=== PATIENT | female | born 1930 | race Asian ===

== ENCOUNTER 2017-01-29 01:37 | Inpatient (IN) | payer OTHER ==
[~2017-01-29] VITALS: Ht 152.4 cm; Wt 80.7 kg
[2017-01-29] VITALS (11 sets, daily range): BP systolic 117–158; BP diastolic 58–87; PULSE 94–120; RESP 18–20; TEMP 99; Ht 152.4 cm; Wt 80.7 kg
[2017-01-29] MEDS ORDERED: ACETAMINOPHEN 650 MG SUPP PR STA (01:42)
[2017-01-29 02:28] LABS: ADD SCAN DIFF NO
[2017-01-29 02:32] LABS: ABNORMAL IP MESSAGE 1; BASOPHILS % 0.3 % (0.0-2.0); EOSINOPHILS # 0.3 10^3/ul (0.0-0.5); EOSINOPHILS % 2.1 % (0.0-7.0); HEMATOCRIT 28.2 % (37.0-47.0); HEMOGLOBIN 9.3 g/dl (12.0-16.0); LYMPHOCYTES # 2.2 10^3/ul (0.8-2.9); LYMPHOCYTES % 13.9 % (15.0-51.0); MEAN CORPUSCULAR HEMOGLOBIN 30.4 pg (29.0-33.0); MEAN CORPUSCULAR VOLUME 92.2 fl (82.0-101.0); MEAN PLATELET VOLUME 9.1 fl (7.4-10.4); MONOCYTE # 1.6 10^3/ul (0.3-0.9); MONOCYTES % 10.5 % (0.0-11.0); NEUTROPHIL # 11.3 10^3/ul (1.6-7.5); NEUTROPHILS % 72.8 % (39.0-77.0); PLATELET COUNT 292 10^3/UL (140-415); RED BLOOD COUNT 3.06 10^6/ul (4.20-5.40); RED CELL DISTRIBUTION WIDTH 14.9 % (11.5-14.5); WHITE BLOOD COUNT 15.5 10^3/ul (4.8-10.8)
[2017-01-29 02:37] LABS: URINE BLOOD (Dip) POC Trace-lysed (NEGATIVE)
[2017-01-29 02:42] LABS: INR 1.07; PROTIME 13.9 Sec (12.2-14.2); PT RATIO 1.1
[2017-01-29 02:43] LABS: PARTIAL THROMBOPLASTIN TIME 34.4 Sec (25.0-35.0)
--- NOTE | 2017-01-29 02:46 | RADRPT ---
PROCEDURE: Chest. CLINICAL INDICATION: Chest pain. TECHNIQUE: Single frontal view of the chest was obtained. COMPARISON: None. FINDINGS: The cardiac silhouette is enlarged. The aortic arch is calcified. There are increased interstitial markings bilaterally. There is no focal consolidation or pleural effusion. There is no pneumothor ax. IMPRESSION: Bilateral increased interstitial markings could represent interstitial edema or chronic lung changes . Moderate cardiomegaly and aortic atherosclerosis. .Dhruv Mills MD, MD Date Time Electronically viewed and signed by .Dhruv Mills MD, on 01/29/2017 02:45 .T/
--- NOTE | 2017-01-29 02:47 | ERA ---
ER Documentation Chief Complaint Date/Time DATE: 01/29/17 TIME: 02:45 Chief Complaint sent from [facility] for fever 100.9, DNR on chart HPI This is an 86-year-old female sent from his returns for fever 100.9. Denies any complaints. Patient denies any complaints ROS All systems reviewed and are negative except as per history of present illness. Physical Exam Vitals Vital Signs Date Time Temp Pulse Resp B/P Pulse Ox O2 Delivery O2 Flow Rate FiO2 01/29/17 02:04 99.4 130 20 158/103 96 Physical Exam Const: [] Head: Atraumatic Eyes: Normal Conjunctiva ENT: Normal External Ears, Nose and Mouth. Neck: Full range of motion..~ No meningismus. Resp: Clear to auscultation bilaterally Cardio: Regular rate and rhythm, no murmurs Abd: Soft, non tender, non distended. Normal bowel sounds Skin: No petechiae or rashes Back: No midline or flank tenderness Ext: No cyanosis, or edema Neur: Awake and alert Psych: Normal Mood and Affect Result Diagram: 01/29/17 0210 Results 24 hrs Laboratory Tests Test 01/29/17 02:10 01/29/17 02:39 Activated Partial Thromboplast Time 34.4Sec Basophils # 0.010^3/ul Basophils % 0.3% Eosinophils # 0.310^3/ul Eosinophils % 2.1% Hematocrit 28.2% Hemoglobin 9.3g/dl INR International Normalized Ratio 1.07 Lymphocytes # 2.210^3/ul Lymphocytes % 13.9% Mean Corpuscular Hemoglobin 30.4pg Mean Corpuscular Hemoglobin Concent 33.0g/dl Mean Corpuscular Volume 92.2fl Mean Platelet Volume 9.1fl Monocytes # 1.610^3/ul Monocytes % 10.5% Neutrophils # 11.310^3/ul Neutrophils % 72.8% Nucleated Red Blood Cells # 0.010^3/ul Nucleated Red Blood Cells % 0.0/100WBC Platelet Count 26340^3/UL Prothrombin Time 13.9Sec Prothrombin Time Ratio 1.1 Red Blood Count 3.0610^6/ul Red Cell Distribution Width 14.9% White Blood Count 15.510^3/ul Bedside Urine Blood Trace-lysed Bedside Urine Glucose (UA) Negative Bedside Urine Ketones (LAB) Negative Bedside Urine Leukocyte Esterase (L Negative Bedside Urine Nitrite (LAB) Negative Bedside Urine Protein (LAB) 2+ Bedside Urine pH (LAB) 5.5 Current Medications Medications (Trade) Dose Ordered Sig/Chuck Route PRN Reason Start Time Stop Time Status Last Admin Dose Admin Acetaminophen (Tylenol Supp) 650 mg ONCE STAT RI 01/29/17 01:42 01/29/17 01:43 DC Procedures/MDM EKG: Rate/Rhythm: Normal Sinus Rhythm QRS, ST, T-waves: No changes consistent w/ acute ischemia Impression: No evidence of ischemia or arrhythmia Chest X-ray 1V Interpreted by me: Soft Tissue: No acute abnormalities Bones: No acute abnormalities Mediastinum/Cardiac Silhouette/Lungs: No acute abnormalities Medical decision-making: Patient has evidence of UTI and a white count. No evidence of sepsis. Patient will be admitted to Dr. Mansfield. Broad-spectrum antibiotics started. Departure Diagnosis: Primary Impression: Fever Qualified Code: R50.9 - Fever, unspecified fever cause Additional Impression: UTI (urinary tract infection) Qualified Code: N39.0 - Urinary tract infection without hematuria, site unspecified Condition: Stable KAMERON SHANKS Jan 29, 2017 02:46
[2017-01-29 02:50] LABS: ALBUMIN 3.8 g/dl (3.3-4.9)
[2017-01-29 02:52] LABS: BILIRUBIN,INDIRECT 0.3 mg/dl (0-1.1); BILIRUBIN,TOTAL 0.3 mg/dl (0.2-1.3); CREATININE 2.86 mg/dl (0.44-1.00)
[2017-01-29 02:53] LABS: ALBUMIN/GLOBULIN RATIO 1.05; TOTAL PROTEIN 7.4 g/dl (6.1-8.1)
[2017-01-29 02:54] LABS: CALCIUM 9.3 mg/dl (8.4-10.2)
[2017-01-29 02:59] LABS: ADD UMIC YES; URINE BILIRUBIN (Dip) NEGATIVE (NEGATIVE); URINE BLOOD (Dip) TRACE (NEGATIVE); URINE COLOR LT. YELLOW (YELLOW); URINE GLUCOSE (Dip) NEGATIVE (NEGATIVE); URINE KETONES (Dip) NEGATIVE (NEGATIVE); URINE LEUKOCYTE ESTERASE (Dip) NEGATIVE (NEGATIVE); URINE NITRITE (Dip) NEGATIVE (NEGATIVE); URINE TOTAL PROTEIN (Dip) 1+ (NEGATIVE); URINE UROBILINOGEN (Dip) 0.2 E.U./dL (0.1-1.0)
[2017-01-29] MEDS ORDERED: ACETAMINOPHEN 325 MG TAB PO ONE (03:00)
[2017-01-29] MEDS ORDERED: OXYCODONE/ACETAMINOPHEN (5/325) TAB PO ONE (03:00)
[2017-01-29 03:08] LABS: TROPONIN-I 0.035 ng/ml (0.00-0.12)
[2017-01-29 03:12] LABS: SQUAMOUS EPITHELIAL CELL,UR FEW
[2017-01-29] MEDS ORDERED: UDROBDM PO (04:46)
[2017-01-29] MEDS ORDERED: OXYC-209 PO (04:46)
[2017-01-29] MEDS ORDERED: ALLO100T PO (04:46)
[2017-01-29] MEDS ORDERED: DOCU-159 PO (04:46)
[2017-01-29] MEDS ORDERED: AMLO2.5T78 PO (04:46)
[2017-01-29] MEDS ORDERED: CYAN500T46 PO (04:46)
[2017-01-29] MEDS ORDERED: HYDR-3011 PO (04:46)
[2017-01-29] MEDS ORDERED: TRAZ50TA18 PO (04:46)
[2017-01-29] MEDS ORDERED: FER325 PO (04:46)
[2017-01-29] MEDS ORDERED: LEVA0.634 INHALATION (04:46)
[2017-01-29] MEDS ORDERED: ACET-2047 PO (04:46)
[2017-01-29] MEDS ORDERED: ASC500 PO (04:46)
[2017-01-29] MEDS ORDERED: OMEG1CAP9 PO (04:46)
[2017-01-29] MEDS ORDERED: LOVA20TA PO (04:46)
[2017-01-29] MEDS ORDERED: PANT40SU PO (04:46)
[2017-01-29] MEDS ORDERED: ACETAMINOPHEN 325 MG TAB PO PRN (05:30)
[2017-01-29 06:54] LABS: ADD SCAN DIFF NO
[2017-01-29 07:05] LABS: BASOPHILS % 0.3 % (0.0-2.0); EOSINOPHILS # 0.6 10^3/ul (0.0-0.5); EOSINOPHILS % 4.9 % (0.0-7.0); HEMOGLOBIN 8.3 g/dl (12.0-16.0); LYMPHOCYTES # 1.9 10^3/ul (0.8-2.9); MEAN CORPUSCULAR HEMOGLOBIN 31.1 pg (29.0-33.0); MEAN CORPUSCULAR HGB CONC 33.2 g/dl (32.0-37.0); MEAN CORPUSCULAR VOLUME 93.6 fl (82.0-101.0); MEAN PLATELET VOLUME 9.3 fl (7.4-10.4); MONOCYTE # 1.4 10^3/ul (0.3-0.9); MONOCYTES % 11.3 % (0.0-11.0); NEUTROPHIL # 8.7 10^3/ul (1.6-7.5); PLATELET COUNT 268 10^3/UL (140-415); RED BLOOD COUNT 2.67 10^6/ul (4.20-5.40); RED CELL DISTRIBUTION WIDTH 14.9 % (11.5-14.5); WHITE BLOOD COUNT 12.8 10^3/ul (4.8-10.8)
[2017-01-29 07:12] LABS: ALBUMIN 3.1 g/dl (3.3-4.9)
[2017-01-29 07:13] LABS: POTASSIUM 4.2 mmol/L (3.5-5.1)
[2017-01-29 07:15] LABS: ALBUMIN/GLOBULIN RATIO 1.06; BILIRUBIN,INDIRECT 0.2 mg/dl (0-1.1); BILIRUBIN,TOTAL 0.2 mg/dl (0.2-1.3); CREATININE 2.65 mg/dl (0.44-1.00)
[2017-01-29 07:16] LABS: CALCIUM 8.9 mg/dl (8.4-10.2); CHOL/HDL RATIO 2.7 RATIO
[2017-01-29 07:46] LABS: THYROID STIMULATING HORMONE 3.22 MIU/L (0.465-4.680)
[2017-01-29] MEDS ORDERED: ENOXAPARIN 100 MG/ML SYG SC SCH (09:00)
[2017-01-29] MEDS: METOPROLOL 25 MG TAB PO SCH ×2 (09:05→20:43)
[2017-01-29] MEDS: CEFTRIAXONE 1 GM/50 ML (PMX) 50 ML IVPB SCH (09:06)
[2017-01-29] MEDS: GUAIFENESIN/CODEINE 5ML CUP PO PRN ×2 (13:58→18:54)
--- NOTE | 2017-01-29 15:51 | RADRPT ---
Echocardiogram Report Patient Name: MARYCRUZ GARCIA Gender: Female Date: 1930 Study Date: 29-Jan-2017 Professor/Nurse Anesthetist: Shruthi Andre RDCS Location: 522 Ref. Physician: LOREN ROSE Quality: Adequate Procedures: Transthoracic echocardiogram with complete 2D, M-Mode, and doppler examination. Indications: Atrial Fibrillation. 2D/M Mode Doppler Measurement Value Normal Ranges Measurement Value Normal Ranges LVIDd 2D 4.3 3.5 - 5.6 cm TAD Vmax 1.1 cm2 LVIDs 2D 2.2 2.1 - 4.1 cm TAD VTI 1.1 cm2 LVPWd 2D 1.0 0.6 - 1.1 cm AV Mean [place] 1.6 m/sec IVSd 2D 0.7 0.6 - 1.1 cm AV Mean PG 11.9 mmHg AoR Diam 2D 2.6 2.0 - 3.7 cm AV Peak [place] 2.3 m/sec EDV 2D 83.8 cm3 AV Peak PG 21.5 mmHg ESV 2D 10.0 cm3 AV VTI 40.1 cm LA Dimen 2D 3.8 2.3 - 4.0 cm LVOT Mean [place] 0.7 m/sec LVOT Mean PG 2.6 mmHg LVOT Peak [place] 1.0 m/sec LVOT Peak PG 4.0 mmHg LVOT VTI 21.5 cm TR Peak [place] 2.4 m/sec TR Peak PG 22.3 mmHg RVSP 25.0 mmHg Findings Left Ventricle: Normal left ventricular systolic function. Normal left ventricular cavity size. Normal left ventricular wall thickness. Ejection fraction is visually estimated at 60 %. Tissue Doppler/Mitral Doppler indices are indeterminate in this study due to the presence of atrial fibrillation. Right Ventricle: Normal right ventricular size. Normal right ventricular systolic function. Left Atrium: The left atrium is normal in size. Right Atrium: The right atrium is normal in size. Mitral Valve: Mild mitral leaflet calcification. Moderate mitral annular calcification. Mild mitral valve regurgitation. Aortic Valve: Mild aortic stenosis. Aortic valve Max velocity 2.32 m/sec. Max PG 21.50 mmHg. Mean PG 11.90 mmHg. Aortic cusps appear mildly calcified. Trace aortic valve regurgitation. Tricuspid Valve: Normal appearance of the tricuspid valve. Estimated peak PA systolic pressure 25 mmHg. There is mild tricuspid regurgitation. Pulmonic Valve: Pulmonic valve not well visualized. Pericardium: Normal pericardium with no significant pericardial effusion. Aorta: Normal aortic root. IVC: Normal size and normal respiratory collapse consistent with normal right atrial pressure. Conclusions Normal left ventricular systolic function. Normal left ventricular cavity size. Normal left ventricular wall thickness. Ejection fraction is visually estimated at 60 %. Tissue Doppler/Mitral Doppler indices are indeterminate in this study due to the presence of atrial fibrillation. Mild mitral valve regurgitation. Mild aortic stenosis by gradient. Trace aortic valve regurgitation. Estimated peak PA systolic pressure 25 mmHg. There is mild tricuspid regurgitation. Electronically Signed By: Tera Iraheta 29-Jan-2017 15:50:58 -0800 Patient Name: MARYCRUZ GARCIA Study Date: 29-Jan-2017 [id number]
[2017-01-29] MEDS ORDERED: METHYLPREDNISOLONE 40 MG INJ IV SCH (16:00)
--- NOTE | 2017-01-29 16:09 | HP ---
DATE OF ADMISSION: 01/29/2017 CHIEF COMPLAINT: Fever and shortness of breath. HISTORY OF PRESENT ILLNESS: The patient is an 86-year-old female with a past medical history posit betsy for hypertension, hyperlipidemia, gout, iron deficiency anemia and possible COPD. PAST SURGICAL HISTORY: The patient had bilateral ankle surgery more than a year ago and was recuper ating at [facility]. The patient complained of shortness of breath, cough and was started on Augmentin, however, with no improvement in cough and shortness of breath. Patient also spiked fever and was sent to [facility] emergency room. In the emergency room, patient underwent a chest x-ray which rev ealed bilateral increased interstitial markings which could represent interstitial edema or chronic lung changes, moderate cardiomegaly and aortic atherosclerosis. ASSESSMENT AND PLAN: Patient's troponin was negative on admission. The patient noted to have leuko cytosis with white blood cells elevated to 15.5. The patient also complains of dysuria. The patien t also ____of elevated BUN and creatinine. The patient was started on Rocephin and given cough syru p and admitted for further evaluation and management to medical/surgical floor. PAST MEDICAL HISTORY: Per HPI. PAST SURGICAL HISTORY: Status post ankle surgeries, details not available. SOCIAL HISTORY: Patient is retired. The patient denies any tobacco use; however, stated that she w as exposed to secondhand smoke. Her was a heavy smoker. The patient denies any alcohol use , denies any illicit drug use. ALLERGIES: NO KNOWN ALLERGIES. MEDICATIONS ON ADMISSION: 1. Tylenol. 2. Allopurinol. 3. Amlodipine. 4. Vitamin C. 5. Vitamin B12. 6. Colace. 7. Ferrous sulfate. 8. Robitussin. 9. Hydroxyzine. 10. Levalbuterol. 11. Percocet. 12. Trazodone. 13. Lovastatin. 14. [place] 3 fatty acid. 15. Protonix. ASSESSMENT AND PLAN: 1. Possible bronchitis versus early pneumonia. Continue patient on Rocephin. Start patient on linda athing treatments. 2. Possible urinary tract infection. Continue antibiotics. Will obtain urine and blood cultures. 3. Hypertension. Continue metoprolol. 4. Possible chronic obstructive pulmonary disease exacerbation. Continue patient on breathing gen tments, start the patient on steroids. Continue supplemental oxygen. 5. We will obtain a 2D echo and evaluation of patient's ejection fraction. 6. Gout. Continue allopurinol. 7. Hyperlipidemia. Continue statin. Will continue Lovenox for deep venous thrombosis prophylaxis and Protonix for peptic ulcer disease prophylaxis. Further recommendations based on clinical course . Plan of care discussed with Dr. Olivier. Dictated By: EDWAR VARGAS CONDUCTOR AND ENGINEER for LOREN OLIVIER MD SR/NTS Conf#: [id number] DID#: [id number]
[2017-01-29] MEDS: PANTOPRAZOLE (EC) 40 MG TAB PO SCH (16:48)
[2017-01-29] MEDS ORDERED: EPOETIN 10000 UNITS/1 ML INJ (ESRD) SC SCH (17:00)
[2017-01-29] MEDS ORDERED: HEPARIN 5,000 UNIT/0.5 ML SYG SC SCH (17:00)
[2017-01-29] MEDS: METHYLPREDNISOLONE 40 MG INJ IV SCH (17:09)
--- NOTE | 2017-01-29 17:41 | RADRPT ---
PROCEDURE: Renal US. CLINICAL INDICATION: Acute kidney injury. TECHNIQUE: Multiple sonographic images of the kidneys and urinary bladder were obtained. The imag es were reviewed on a PACS workstation. COMPARISON: No prior studies are available for comparison. FINDINGS: The right kidney measures 10.6 x 4.5 x 4.0 cm. The left kidney measures 9.3 x 4.8 x 3.3 cm. There is no solid renal mass. There are benign bilateral renal cysts with the largest on the right measuring 3.0 cm and the largest on the left measuring 1.9 cm in maximal dimension. There is no hydronephrosis. There is no renal calculus. Both kidneys are hyperechoic consistent with medical renal disease. There is mild thinning of the r enal parenchyma bilaterally. The perirenal regions are normal with no fluid collection or mass. The urinary bladder is unremarkable. IMPRESSION: 1. Benign bilateral renal cysts. 2. Bilateral hyperechoic kidneys with thinning of the renal parenchyma consistent with medical galindo l disease. 3. No hydronephrosis. 4. Otherwise normal renal ultrasound. RPTAT: QQ .Raghav Aguirre MD, MD Date Time Electronically viewed and signed by .Raghav Aguirre MD, on 01/29/2017 17:41 .R/
[2017-01-29 18:50] LABS: CK-MB 1.61 ng/ml (0.0-2.4)
[2017-01-29 18:53] LABS: TROPONIN-I 0.026 ng/ml (0.00-0.12)
--- NOTE | 2017-01-29 19:31 | CONS ---
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 Thank for you the opportunity to participate in the care of Ms Simon. Consultation Date/Type/Reason Admit Date/Time Jan 29, 2017 at 03:02 Type of Consultation: Nephrology Reason for Consultation CKD Referring Provider: LOREN ROSE MD Hx of Present Illness 86-year-old female with a history of hypertension, hyperlipidemia, gout, Chronic kidney disease, iron deficiency anemia presenting from [facility] with worsening shortness of breath, cough and fever in the emergency department at [facility]. Nephrology consulted for abnormal renal function. Constitutional: requiring O2 Past Medical History MEDICATIONS ON ADMISSION: 1. Tylenol. 2. Allopurinol. 3. Amlodipine. 4. Vitamin C. 5. Vitamin B12. 6. Colace. 7. Ferrous sulfate. 8. Robitussin. 9. Hydroxyzine. 10. Levalbuterol. 11. Percocet. 12. Trazodone. 13. Lovastatin. 14. [place] 3 fatty acid. 15. Protonix. Medical History: hypertension, renal disease Past Surgical History Past Surgical Hx: other Family History Significant Family History: no pertinent family hx Social History Alcohol Use: none Smoking Status: Never smoker Drug Use: none Exam/Review of Systems Vital Signs Vitals Vital Signs Date Time Temp Pulse Resp B/P Pulse Ox O2 Delivery O2 Flow Rate FiO2 01/29/17 16:55 94 01/29/17 15:17 98.6 18 136/78 99 01/29/17 03:45 Nasal Cannula 01/29/17 02:59 1 Exam Constitutional: alert, No distress Psych: anxiety Head: atraumatic Eyes: EOMI Neck: No jvd Respiratory: crackles/rales, diminished breath sounds, wheezing, No labored breathing Cardiovascular: edema, regular rate and rhythm Gastrointestinal: non-tender, soft Extremities: edema 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: NURSE OB II-XII intact Skin: No diaphoresis Results Result Diagram: 01/29/1762501/29/17 06 Results 24 hrs Laboratory Tests Test 01/29/17 02:10 01/29/17 02:28 01/29/17 02:39 01/29/17 06:26 Activated Partial Thromboplast Time 34.4 Alanine Aminotransferase (ALT/SGPT) 56 50 Albumin 3.8 3.1 L Albumin/Globulin Ratio 1.05 1.06 Alkaline Phosphatase 136 H 111 Anion Gap 20 H 17 H Aspartate Amino Transf (AST/SGOT) 53 H 44 Basophils # 0.0 0.0 Basophils % 0.3 0.3 Blood Urea Nitrogen 36 H 37 H Calcium Level 9.3 8.9 Carbon Dioxide Level 19 L 21 Chloride Level 104 104 Creatinine 2.86 H 2.65 H Direct Bilirubin 0.00 0.00 Eosinophils # 0.3 0.6 H Eosinophils % 2.1 4.9 Globulin 3.60 H 2.90 Glucose Level 120 109 Hematocrit 28.2 L 25.0 L Hemoglobin 9.3 L 8.3 L INR International Normalized Ratio 1.07 Indirect Bilirubin 0.3 0.2 Lactic Acid Level 0.8 0.8 Lymphocytes # 2.2 1.9 Lymphocytes % 13.9 L 15.0 Mean Corpuscular Hemoglobin 30.4 31.1 Mean Corpuscular Hemoglobin Concent 33.0 33.2 Mean Corpuscular Volume 92.2 93.6 Mean Platelet Volume 9.1 9.3 Monocytes # 1.6 H 1.4 H Monocytes % 10.5 11.3 H Neutrophils # 11.3 H 8.7 H Neutrophils % 72.8 68.0 Nucleated Red Blood Cells # 0.0 0.0 Nucleated Red Blood Cells % 0.0 0.0 Platelet Count 292 268 Potassium Level 4.0 4.2 Prothrombin Time 13.9 Prothrombin Time Ratio 1.1 Red Blood Count 3.06 L 2.67 L Red Cell Distribution Width 14.9 H 14.9 H Sodium Level 139 138 Total Bilirubin 0.3 0.2 Total Protein 7.4 6.0 #L Troponin I 0.035 White Blood Count 15.5 H 12.8 H Urine Amorphous Urates MODERATE Urine Bilirubin NEGATIVE Urine Clarity CLEAR Urine Color LT. YELLOW Urine Glucose NEGATIVE Urine Hemoglobin TRACE Urine Ketones NEGATIVE Urine Leukocyte Esterase NEGATIVE Urine Microscopic RBC 2-5 Urine Microscopic WBC 0-2 Urine Nitrite NEGATIVE Urine Specific [place] <=1.005 L Urine Squamous Epithelial Cells FEW Urine Total Protein 1+ H Urine Urobilinogen 0.2 E.U./dL Urine pH 5.5 Bedside Urine Blood Trace-lysed H Bedside Urine Glucose (UA) Negative Bedside Urine Ketones (LAB) Negative Bedside Urine Leukocyte Esterase (L Negative Bedside Urine Nitrite (LAB) Negative Bedside Urine Protein (LAB) 2+ H Bedside Urine pH (LAB) 5.5 Cholesterol Level 135 Cholesterol/HDL Ratio 2.7 HDL Cholesterol 50 LDL Cholesterol, Calculated 68 Thyroid Stimulating Hormone (TSH) 3.220 Triglycerides Level 83 Test 01/29/17 09:28 01/29/17 18:10 Lactic Acid Level 0.8 Creatine Kinase 117 Creatine Kinase Index 1.4 Creatinine Kinase MB (Mass) 1.61 Troponin I 0.026 Medications Medications Current Medications Ceftriaxone Sodium (Rocephin) 50 ml @ 100 mls/hr Q24H IVPB Last administered on 01/29/17 09:06; Admin Dose 100 MLS/HR; Start 01/29/17 at 05:30 Acetaminophen (Tylenol Tab) 650 mg Q4H PRN PO PAIN AND OR ELEVATED TEMP Last administered on 01/29/17 18:54; Admin Dose 650 MG; Start 01/29/17 at 05:30 Metoprolol Tartrate (Lopressor) 25 mg BID PO Last administered on 01/29/17 09: 05; Admin Dose 25 MG; Start 01/29/17 at 09:00 Guaifenesin/ Codeine Phosphate (Robitussin Ac Liquid Cup) 10 ml Q4H PRN PO COUGH Last administered on 01/29/17 18:54; Admin Dose 10 ML; Start 01/29/17 at 05 :30 Atorvastatin Calcium (Lipitor) 10 mg HS PO ; Start 01/29/17 at 21:00 Pantoprazole (Protonix Tab) 40 mg DAILY@06 PO Last administered on 01/29/17 16: 48; Admin Dose 40 MG; Start 01/29/17 at 16:00 Heparin Sodium (Porcine) (Heparin (5000 Units/0.5 ml)) 5,000 unit Q12 SC Last administered on 01/29/17 16:50; Admin Dose 5,000 UNIT; Start 01/29/17 at 17:00 Methylprednisolone Sodium Succinate (Solu-Medrol) 40 mg Q12 IV Last administered on 01/29/17t 17:09; Admin Dose 40 MG; Start 01/29/17 at 17:00 Epoetin Larry (Epogen (Non Esrd/Non Oncology)) 3,000 units MoWeFr@17 SC ; Start 01/31/17 at 17:00 Epoetin Larry (Epogen (Non Esrd/Non Oncology)) 2,000 units MoWeFr@17 SC ; Start 01/31/17 at 17:00 Procedures Procedures PROCEDURE: Chest. CLINICAL INDICATION: Chest pain. TECHNIQUE: Single frontal view of the chest was obtained. COMPARISON: None. FINDINGS: The cardiac silhouette is enlarged. The aortic arch is calcified. There are increased interstitial markings bilaterally. There is no focal consolidation or pleural effusion. There is no pneumothorax. IMPRESSION: Bilateral increased interstitial markings could represent interstitial edema or chronic lung changes. Moderate cardiomegaly and aortic atherosclerosis. .Dhruv Mills MD, MD Date Time Electronically viewed and signed by .Dhruv Mills MD, on 01/29/2017 02:45 PROCEDURE: Renal US. CLINICAL INDICATION: Acute kidney injury. TECHNIQUE: Multiple sonographic images of the kidneys and urinary bladder were obtained. The images were reviewed on a PACS workstation. COMPARISON: No prior studies are available for comparison. FINDINGS: The right kidney measures 10.6 x 4.5 x 4.0 cm. The left kidney measures 9.3 x 4.8 x 3.3 cm. There is no solid renal mass. There are benign bilateral renal cysts with the largest on the right measuring 3.0 cm and the largest on the left measuring 1.9 cm in maximal dimension. There is no hydronephrosis. There is no renal calculus. Both kidneys are hyperechoic consistent with medical renal disease. There is mild thinning of the renal parenchyma bilaterally. The perirenal regions are normal with no fluid collection or mass. The urinary bladder is unremarkable. IMPRESSION: 1. Benign bilateral renal cysts. 2. Bilateral hyperechoic kidneys with thinning of the renal parenchyma consistent with medical renal disease. 3. No hydronephrosis. 4. Otherwise normal renal ultrasound. ERIN KOWALSKI MD Jan 29, 2017 19:31
[2017-01-29] MEDS: ATORVASTATIN 10 MG TAB PO SCH (20:42)
[2017-01-29] MEDS: ALBUTEROL/IPRATROPIUM (NEB) 3 ML AMP HHN SCH (20:48)
[2017-01-30] VITALS (13 sets, daily range): BP systolic 113–136; BP diastolic 62–76; PULSE 82–105; RESP 18–21
[2017-01-30 01:17] LABS: CK-MB 1.59 ng/ml (0.0-2.4)
[2017-01-30 01:20] LABS: TROPONIN-I 0.039 ng/ml (0.00-0.12)
[2017-01-30] MEDS: CEFTRIAXONE 1 GM/50 ML (PMX) 50 ML IVPB SCH (05:54)
[2017-01-30] MEDS: PANTOPRAZOLE (EC) 40 MG TAB PO SCH (05:54)
[2017-01-30 06:49] LABS: ADD SCAN DIFF NO
[2017-01-30 06:52] LABS: BASOPHILS % 0.1 % (0.0-2.0); HEMATOCRIT 27.4 % (37.0-47.0); HEMOGLOBIN 8.8 g/dl (12.0-16.0); LYMPHOCYTES % 9.5 % (15.0-51.0); MEAN CORPUSCULAR HEMOGLOBIN 29.7 pg (29.0-33.0); MEAN CORPUSCULAR HGB CONC 32.1 g/dl (32.0-37.0); MEAN CORPUSCULAR VOLUME 92.6 fl (82.0-101.0); MEAN PLATELET VOLUME 9.7 fl (7.4-10.4); MONOCYTE # 0.2 10^3/ul (0.3-0.9); MONOCYTES % 1.7 % (0.0-11.0); NEUTROPHIL # 9.1 10^3/ul (1.6-7.5); NEUTROPHILS % 88.2 % (39.0-77.0); PLATELET COUNT 293 10^3/UL (140-415); RED BLOOD COUNT 2.96 10^6/ul (4.20-5.40); RED CELL DISTRIBUTION WIDTH 14.8 % (11.5-14.5); WHITE BLOOD COUNT 10.3 10^3/ul (4.8-10.8)
[2017-01-30 07:09] LABS: POTASSIUM 4.7 mmol/L (3.5-5.1)
[2017-01-30 07:11] LABS: CREATININE 2.78 mg/dl (0.44-1.00)
[2017-01-30 07:12] LABS: CALCIUM 9.1 mg/dl (8.4-10.2)
[2017-01-30] MEDS: ALBUTEROL/IPRATROPIUM (NEB) 3 ML AMP HHN SCH ×3 (08:45→19:56)
[2017-01-30] MEDS: METOPROLOL 25 MG TAB PO SCH (09:59)
[2017-01-30] MEDS: METHYLPREDNISOLONE 40 MG INJ IV SCH ×2 (09:59→21:05)
--- NOTE | 2017-01-30 11:54 | CONS ---
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 Renal/Cardiac Diet Thank for you the opportunity to participate in the care of Ms Simon. Consultation Date/Type/Reason Admit Date/Time Jan 29, 2017 at 03:02 Initial Consult Date Type of Consultation: Nephrology Referring Provider: LOREN ROSE MD 24 HR Interval Summary Free Text/Dictation No new complaints Exam/Review of Systems Vital Signs Vitals Vital Signs Date Time Temp Pulse Resp B/P Pulse Ox O2 Delivery O2 Flow Rate FiO2 01/30/17 11:46 98.1 89 18 136/71 99 01/30/17 08:45 3.0 01/30/17 08:45 Nasal Cannula Intake and Output 01/29/17 01/29/17 01/30/17 15:00 23:00 07:00 Intake Total 1200 ml 290 ml Balance 1200 ml 290 ml Exam Constitutional: No distress ENMT: mucosa pink and moist Respiratory: crackles/rales, diminished breath sounds Cardiovascular: edema, regular rate and rhythm Gastrointestinal: non-tender, soft 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: SENIOR INVESTIGATOR II-XII intact, nl mental status, No lethargic Skin: No diaphoresis Results Result Diagram: 01/30/17 0604 01/30/17 0604 Results 24 hrs Laboratory Tests Test 01/29/17 17:35 01/29/17 18:10 01/30/17 00:35 01/30/17 06:04 Urine Random Creatinine 27.54 Urine Random Sodium 18 L Creatine Kinase 117 92 Creatine Kinase Index 1.4 1.7 Creatinine Kinase MB (Mass) 1.61 1.59 Troponin I 0.026 0.039 Anion Gap 19 H B-Type Natriuretic Peptide 97827 H Basophils # 0.0 Basophils % 0.1 Blood Urea Nitrogen 46 H Calcium Level 9.1 Carbon Dioxide Level 20 L Chloride Level 104 Creatinine 2.78 H Eosinophils # 0.0 Eosinophils % 0.0 Glucose Level 150 Hematocrit 27.4 L Hemoglobin 8.8 L Lymphocytes # 1.0 Lymphocytes % 9.5 L Mean Corpuscular Hemoglobin 29.7 Mean Corpuscular Hemoglobin Concent 32.1 Mean Corpuscular Volume 92.6 Mean Platelet Volume 9.7 Monocytes # 0.2 L Monocytes % 1.7 Neutrophils # 9.1 H Neutrophils % 88.2 H Nucleated Red Blood Cells # 0.0 Nucleated Red Blood Cells % 0.0 Platelet Count 293 Potassium Level 4.7 Red Blood Count 2.96 L Red Cell Distribution Width 14.8 H Sodium Level 138 White Blood Count 10.3 Medications Medications Current Medications Ceftriaxone Sodium (Rocephin) 50 ml @ 100 mls/hr Q24H IVPB Last administered on 01/30/17 05:54; Admin Dose 100 MLS/HR; Start 01/29/17 at 05:30 Acetaminophen (Tylenol Tab) 650 mg Q4H PRN PO PAIN AND OR ELEVATED TEMP Last administered on 01/29/17 18:54; Admin Dose 650 MG; Start 01/29/17 at 05:30 Metoprolol Tartrate (Lopressor) 25 mg BID PO Last administered on 01/30/17 09: 59; Admin Dose 25 MG; Start 01/29/17 at 09:00 Guaifenesin/ Codeine Phosphate (Robitussin Ac Liquid Cup) 10 ml Q4H PRN PO COUGH Last administered on 01/29/17 18:54; Admin Dose 10 ML; Start 01/29/17 at 05 :30 Atorvastatin Calcium (Lipitor) 10 mg HS PO Last administered on 01/29/17 20:42 ; Admin Dose 10 MG; Start 01/29/17 at 21:00 Pantoprazole (Protonix Tab) 40 mg DAILY@06 PO Last administered on 01/30/17 05: 54; Admin Dose 40 MG; Start 01/29/17 at 16:00 Methylprednisolone Sodium Succinate (Solu-Medrol) 40 mg Q12 IV Last administered on 01/30/17 09:59; Admin Dose 40 MG; Start 01/29/17 at 17:00 Epoetin Larry (Epogen (Non Esrd/Non Oncology)) 3,000 units MoWeFr@17 SC ; Start 01/31/17 at 17:00 Epoetin Larry (Epogen (Non Esrd/Non Oncology)) 2,000 units MoWeFr@17 SC ; Start 01/31/17 at 17:00 Heparin Sodium (Porcine) (Heparin (5000 Units/0.5 ml)) 5,000 unit Q12 SC ; Start 01/30/17 at 12:00 ERIN KOWALSKI MD Jan 30, 2017 11:54
[2017-01-30] MEDS ORDERED: HEPARIN 5,000 UNIT/0.5 ML SYG SC SCH (12:00)
--- NOTE | 2017-01-30 15:50 | PN ---
Date/Time of Note Date/Time of Note DATE: 01/30/17 TIME: 15:46 Assessment/Plan VTE Prophylaxis VTE Prophylaxis Intervention: LMWH Lines/Catheters [facility] Urinary Cath still in place: No Assessment/Plan Assessment/Plan 1. Possible bronchitis versus early pneumonia. Continue patient on Rocephin. Start patient on breathing treatments. 2. Possible urinary tract infection. Continue antibiotics. Will obtain urine and blood cultures. 3. Hypertension. Continue metoprolol. 4. Possible chronic obstructive pulmonary disease exacerbation. Continue patient on breathing treatments, start the patient on steroids. Continue supplemental oxygen. 5. SP 2D echo and evaluation of patient's ejection fraction. 6. Gout. Continue allopurinol. 7. Hyperlipidemia. Continue statin. 8. Lovenox for deep venous thrombosis prophylaxis 9. Protonix for peptic ulcer disease prophylaxis. 10. Elevated BNP- cardiology consult appreciated- Dr Iraehta notified. Further recommendations based on clinical course. Plan of care discussed with Dr. Olivier. Subjective 24 Hr Interval Summary Free Text/Dictation NAD, seems comfortable, no new issues reported, dw staff Constitutional: improved Eyes: no complaints ENT: no complaints Respiratory: cough, no complaints Cardiovascular: no complaints Gastrointestinal: no complaints Genitourinary: no complaints Musculoskeletal: no complaints Skin: no complaints Neurologic: no complaints Endocrine: no complaints Lymphatic: no complaints Psychological: no complaints Immunologic: no complaints Exam/Review of Systems Vital Signs Vitals Vital Signs Date Time Temp Pulse Resp B/P Pulse Ox O2 Delivery O2 Flow Rate FiO2 01/30/17 12:26 103 01/30/17 11:46 98.1 18 136/71 99 01/30/17 08:45 3.0 01/30/17 08:45 Nasal Cannula Intake and Output 01/29/17 01/29/17 01/30/17 15:00 23:00 07:00 Intake Total 1200 ml 290 ml Balance 1200 ml 290 ml Exam Constitutional: alert, oriented, well developed Psych: nl mood/affect Head: atraumatic Eyes: EOMI, PERRL, nl sclera ENMT: nl external ears & nose Neck: non-tender Respiratory: diminished breath sounds Cardiovascular: nl pulses Gastrointestinal: non-tender, soft Musculoskeletal: nl extremities to inspection Extremities: normal pulses 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: nl mental status, nl speech Skin: nl turgor Results Result Diagram: 01/30/17 0604 01/30/17 0604 Results 24 hrs Laboratory Tests Test 01/29/17 17:35 01/29/17 18:10 01/30/17 00:35 01/30/17 06:04 Urine Random Creatinine 27.54 Urine Random Sodium 18 L Creatine Kinase 117 92 Creatine Kinase Index 1.4 1.7 Creatinine Kinase MB (Mass) 1.61 1.59 Troponin I 0.026 0.039 Anion Gap 19 H B-Type Natriuretic Peptide 58963 H Basophils # 0.0 Basophils % 0.1 Blood Urea Nitrogen 46 H Calcium Level 9.1 Carbon Dioxide Level 20 L Chloride Level 104 Creatinine 2.78 H Eosinophils # 0.0 Eosinophils % 0.0 Glucose Level 150 Hematocrit 27.4 L Hemoglobin 8.8 L Lymphocytes # 1.0 Lymphocytes % 9.5 L Mean Corpuscular Hemoglobin 29.7 Mean Corpuscular Hemoglobin Concent 32.1 Mean Corpuscular Volume 92.6 Mean Platelet Volume 9.7 Monocytes # 0.2 L Monocytes % 1.7 Neutrophils # 9.1 H Neutrophils % 88.2 H Nucleated Red Blood Cells # 0.0 Nucleated Red Blood Cells % 0.0 Platelet Count 293 Potassium Level 4.7 Red Blood Count 2.96 L Red Cell Distribution Width 14.8 H Sodium Level 138 White Blood Count 10.3 Medications Medications Current Medications Ceftriaxone Sodium (Rocephin) 50 ml @ 100 mls/hr Q24H IVPB Last administered on 01/30/17 05:54; Admin Dose 100 MLS/HR; Start 01/29/17 at 05:30 Acetaminophen (Tylenol Tab) 650 mg Q4H PRN PO PAIN AND OR ELEVATED TEMP Last administered on 01/29/17 18:54; Admin Dose 650 MG; Start 01/29/17 at 05:30 Metoprolol Tartrate (Lopressor) 25 mg BID PO Last administered on 01/30/17 09: 59; Admin Dose 25 MG; Start 01/29/17 at 09:00 Guaifenesin/ Codeine Phosphate (Robitussin Ac Liquid Cup) 10 ml Q4H PRN PO COUGH Last administered on 01/29/17 18:54; Admin Dose 10 ML; Start 01/29/17 at 05 :30 Atorvastatin Calcium (Lipitor) 10 mg HS PO Last administered on 3/8/17at 20:42 ; Admin Dose 10 MG; Start 01/29/17 at 21:00 Pantoprazole (Protonix Tab) 40 mg DAILY@06 PO Last administered on 01/30/17 05: 54; Admin Dose 40 MG; Start 01/29/17 at 16:00 Methylprednisolone Sodium Succinate (Solu-Medrol) 40 mg Q12 IV Last administered on 01/30/17 09:59; Admin Dose 40 MG; Start 01/29/17 at 17:00 Epoetin Larry (Epogen (Non Esrd/Non Oncology)) 3,000 units MoWeFr@17 SC ; Start 01/31/17 at 17:00 Epoetin Larry (Epogen (Non Esrd/Non Oncology)) 2,000 units MoWeFr@17 SC ; Start 01/31/17 at 17:00 Heparin Sodium (Porcine) (Heparin (5000 Units/0.5 ml)) 5,000 unit Q12 SC Last administered on 01/30/17 13:05; Admin Dose 5,000 UNIT; Start 01/30/17 at 12:00 KATIE MENDEZ Jan 30, 2017 15:50
[2017-01-30] MEDS ORDERED: FUROSEMIDE 20 MG INJ IV ONE (20:30)
[2017-01-30] MEDS: ATORVASTATIN 10 MG TAB PO SCH (21:04)
[2017-01-30] MEDS: METOPROLOL 50 MG TAB PO SCH (21:05)
[2017-01-30] MEDS: HEPARIN 5,000 UNIT/0.5 ML SYG SC SCH (21:13)
[2017-01-31] VITALS (13 sets, daily range): BP systolic 122–156; BP diastolic 62–78; PULSE 93–110; RESP 18–20
[2017-01-31 01:54] LABS: CK-MB 1.75 ng/ml (0.0-2.4)
[2017-01-31 01:56] LABS: TROPONIN-I 0.038 ng/ml (0.00-0.12)
--- NOTE | 2017-01-31 04:03 | CONS ---
DATE OF ADMISSION: 01/29/2017 DATE OF CONSULTATION: 01/30/2017 REASON FOR CONSULTATION: Shortness of breath, assess for congestive heart failure as well as atrial fibrillation, abnormal electrocardiogram, assess for acute coronary syndrome. REQUESTING PHYSICIAN: Loren Rose MD HISTORY OF PRESENT ILLNESS: Ms. Simon is a very pleasant 86-year-old female with a history of hype rtension, dyslipidemia, gout, anemia, COPD who initially presented with worsening shortness of breat h, associated cough. Additionally, the patient had a fever and was subsequently sent from her [facility] facility to [facility]. Upon arrival at [facility], tem perature 99.4, blood pressure 158/103, pulse 130, respiratory rate 20, saturating 96%. The patient' s labs revealed white count 15.5, hemoglobin 9.3, platelet count 292. Sodium of 139, potassium 4.0, creatinine 2.8, BUN 36. Troponin negative. BNP of 14,900, LDL 68, HDL 50. TSH 3.22. INR of 1.0. UA negative. The patient underwent a renal ultrasound revealing benign bilateral renal cysts and bilateral hyperechoic kidneys with stenting of the renal parenchyma consistent with medical renal di sease, no hydronephrosis and a chest x-ray interpreted as having bilateral increased interstitial ma rkings which could represent interstitial edema or chronic lung changes, moderate cardiomegaly, aort ic atherosclerosis. The patient's electrocardiogram revealed atrial fibrillation, rate of 125, norm al axis, normal intervals, with nonspecific ST-T abnormalities diffusely and borderline anteroseptal Q's. The patient was subsequently admitted to the floor and since admit to the floor, has been rosa ated with steroids, antibiotics, started on a low dose beta aric and statin therapy. The patient has seen by nephrology service, possible need for hemodialysis. At this time, the patient denies c hest pain, but has ongoing shortness of breath. PAST MEDICAL HISTORY: As above in HPI. MEDICATIONS CURRENTLY IN HOSPITAL: 1. Epogen. 2. Heparin 5000 subq q.12. 3. Lipitor 10 mg at bedtime. 4. DuoNeb. 5. Solu-Medrol ____. 6. Protonix 40 mg daily. 7. Metoprolol 25 mg p.o. b.i.d. 8. Ceftriaxone IV daily. 9. Tylenol p.r.n. 10. Robitussin p.r.n. ALLERGIES: NO KNOWN DRUG ALLERGIES. SOCIAL HISTORY: No tobacco, ETOH or illicit drug use. FAMILY HISTORY: No history of sudden cardiac or early CAD. REVIEW OF SYSTEMS: As above in HPI. CONSTITUTIONAL: No fevers, chills. PULMONARY: Shortness of breath. CARDIOVASCULAR: Congestive heart failure, possible atrial fibrillation. GASTROINTESTINAL: No vomiting. GENITOURINARY: Chronic kidney disease. PSYCHIATRIC: No documented psych history. NEUROLOGIC: No documented history of CVA. PHYSICAL EXAMINATION VITAL SIGNS: Temperature 98, blood pressure 134/72, pulse of low 100s, respiratory rate 18, satting 98%. GENERAL: The patient is alert, awake, complaining of shortness of breath. NECK: JVP approximately 9 cm water. CHEST: Bibasilar crackles. HEART: Irregularly irregular, tachycardic, I/ systolic murmur, nondisplaced PMI. ABDOMEN: Positive bowel sounds, soft. EXTREMITIES: Trace edema, 1+ pulses bilateral posterior tibial. LABORATORIES: As above in HPI with most recently from today, sodium 138, potassium 4.7, creatinine 278, BUN 46. Troponin negative x3. BNP of 14,900, white count 10.3, hemoglobin 8.8, platelet count 293. INR of 1.0. UA negative. IMAGING STUDIES: As above in HPI. A 2D echo interpreted by myself 01/29/2017, at that time revealing a preserved left ventricular ejec tion fraction of 60% with inability to determine the diastolic parameters due to underlying atrial f ibrillation, mild mitral regurgitation and mild aortic stenosis by gradient with trace aortic regurg itation and mild tricuspid regurgitation. ECG: As above in HPI. No further electrocardiograms for my review at this time. IMPRESSION: 1. Atrial fibrillation with mild rapid ventricular response, not currently on systemic anticoagulat ion. 2. Shortness of breath, assess for congestive heart failure. 3. Diastolic dysfunction by 2D echo this admission. 4. Hypertension. 5. Possible chronic obstructive pulmonary disease. 6. Possible bronchitis. 7. Possible pneumonia. 8. Dyslipidemia. 9. Chronic kidney disease. 10. Anemia. 11. Leukocytosis, improving. RECOMMENDATIONS: 1. At this time, would maintain the patient on telemetry monitoring to follow rhythm and rate contr ol closely. 2. Would increase the patient's beta aric to improve overall heart rate and blood pressure contr ol. 3. Will initiate the patient on aspirin and ____ the patient is a true long-term systemic anticoagu lation candidate and this patient has not previously been on it per outpatient medications. 4. Follow the patient's volume status closely with need for gentle diuresis and probably for hemodi alysis. 5. Continue the patient's current steroids and bronchodilators. 6. Check fasting lipid panel for general risk stratification and adjust the patient's statin therap y as necessary. 7. Continue the patient's antibiotics and follow up all culture data. 8. Continue to check serial EKGs to assess for any significant ongoing changes. Thank you for allowing me to take part in the care of this patient. I will continue to follow very closely with you with further recommendations to be made as the patient progresses through her [facility] clinical course. Dictated By: ALVINA PALMER/ELISEO Conf#: [id number] DID#: [id number] CC: LOREN ROSE MD;*EndCC*
[2017-01-31] MEDS: CEFTRIAXONE 1 GM/50 ML (PMX) 50 ML IVPB SCH (05:50)
[2017-01-31] MEDS: PANTOPRAZOLE (EC) 40 MG TAB PO SCH (05:54)
[2017-01-31 06:04] LABS: ADD SCAN DIFF NO
[2017-01-31] MEDS: HEPARIN 5,000 UNIT/0.5 ML SYG SC SCH ×3 (06:05→21:10)
[2017-01-31 06:19] LABS: POTASSIUM 5.1 mmol/L (3.5-5.1)
[2017-01-31 06:21] LABS: CREATININE 2.55 mg/dl (0.44-1.00)
[2017-01-31 06:22] LABS: CALCIUM 8.9 mg/dl (8.4-10.2)
[2017-01-31 06:30] LABS: BASOPHILS % 0.1 % (0.0-2.0); HEMOGLOBIN 8.5 g/dl (12.0-16.0); LYMPHOCYTES # 0.8 10^3/ul (0.8-2.9); MEAN CORPUSCULAR HEMOGLOBIN 30.2 pg (29.0-33.0); MEAN CORPUSCULAR HGB CONC 32.7 g/dl (32.0-37.0); MEAN CORPUSCULAR VOLUME 92.5 fl (82.0-101.0); MEAN PLATELET VOLUME 9.4 fl (7.4-10.4); MONOCYTE # 0.2 10^3/ul (0.3-0.9); MONOCYTES % 1.6 % (0.0-11.0); NEUTROPHIL # 10.1 10^3/ul (1.6-7.5); NEUTROPHILS % 90.7 % (39.0-77.0); PLATELET COUNT 315 10^3/UL (140-415); RED BLOOD COUNT 2.81 10^6/ul (4.20-5.40); RED CELL DISTRIBUTION WIDTH 14.6 % (11.5-14.5); WHITE BLOOD COUNT 11.1 10^3/ul (4.8-10.8)
[2017-01-31 06:31] LABS: CK-MB 1.85 ng/ml (0.0-2.4)
[2017-01-31 06:35] LABS: TROPONIN-I 0.024 ng/ml (0.00-0.12)
[2017-01-31 07:41] LABS: CHOL/HDL RATIO 3.6 RATIO
[2017-01-31] MEDS: ASPIRIN (EC) 325 MG TAB PO SCH (09:26)
[2017-01-31] MEDS: METOPROLOL 50 MG TAB PO SCH ×2 (09:27→21:02)
[2017-01-31] MEDS: METHYLPREDNISOLONE 40 MG INJ IV SCH ×2 (09:27→21:02)
[2017-01-31] MEDS: ALBUTEROL/IPRATROPIUM (NEB) 3 ML AMP HHN SCH ×3 (09:32→20:28)
--- NOTE | 2017-01-31 11:15 | CONS ---
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 BP is well controlled. Renal/Cardiac Diet Thank for you the opportunity to participate in the care of Ms Simon. Consultation Date/Type/Reason Admit Date/Time Jan 29, 2017 at 03:02 Type of Consultation: Nephrology Referring Provider: LOREN ROSE MD 24 HR Interval Summary Free Text/Dictation Afib, Seen by Cardiology Exam/Review of Systems Vital Signs Vitals Vital Signs Date Time Temp Pulse Resp B/P Pulse Ox O2 Delivery O2 Flow Rate FiO2 01/31/17 09:35 20 95 Nasal Cannula 1.0 01/31/17 08:13 108 01/31/17 07:01 98.6 137/73 01/30/17 19:40 21 Intake and Output 01/30/17 01/30/17 01/31/17 15:00 23:00 07:00 Intake Total 1240 ml 550 ml Output Total 1100 ml Balance 1240 ml -550 ml Results Result Diagram: 01/31/17 0555 01/31/17 0552 Results 24 hrs Laboratory Tests Test 01/31/17 00:56 01/31/17 05:51 01/31/17 05:52 01/31/17 05:55 Creatine Kinase 69 59 Creatine Kinase Index 2.5 3.1 Creatinine Kinase MB (Mass) 1.75 1.85 Troponin I 0.038 0.024 Anion Gap 17 H Blood Urea Nitrogen 61 H Calcium Level 8.9 Carbon Dioxide Level 19 L Chloride Level 107 Creatinine 2.55 H Glucose Level 172 Potassium Level 5.1 Sodium Level 138 Basophils # 0.0 Basophils % 0.1 Cholesterol Level 157 Cholesterol/HDL Ratio 3.6 Eosinophils # 0.0 Eosinophils % 0.0 HDL Cholesterol 43 Hematocrit 26.0 L Hemoglobin 8.5 L LDL Cholesterol, Calculated 93 Lymphocytes # 0.8 Lymphocytes % 7.0 L Mean Corpuscular Hemoglobin 30.2 Mean Corpuscular Hemoglobin Concent 32.7 Mean Corpuscular Volume 92.5 Mean Platelet Volume 9.4 Monocytes # 0.2 L Monocytes % 1.6 Neutrophils # 10.1 H Neutrophils % 90.7 H Nucleated Red Blood Cells # 0.0 Nucleated Red Blood Cells % 0.0 Platelet Count 315 Red Blood Count 2.81 L Red Cell Distribution Width 14.6 H Triglycerides Level 107 White Blood Count 11.1 H Medications Medications Current Medications Ceftriaxone Sodium (Rocephin) 50 ml @ 100 mls/hr Q24H IVPB Last administered on 01/31/17 05:50; Admin Dose 100 MLS/HR; Start 01/29/17 at 05:30 Acetaminophen (Tylenol Tab) 650 mg Q4H PRN PO PAIN AND OR ELEVATED TEMP Last administered on 01/29/17 18:54; Admin Dose 650 MG; Start 01/29/17 at 05:30 Guaifenesin/ Codeine Phosphate (Robitussin Ac Liquid Cup) 10 ml Q4H PRN PO COUGH Last administered on 01/29/17 18:54; Admin Dose 10 ML; Start 01/29/17 at 05 :30 Atorvastatin Calcium (Lipitor) 10 mg HS PO Last administered on 01/30/17 21:04 ; Admin Dose 10 MG; Start 01/29/17 at 21:00 Pantoprazole (Protonix Tab) 40 mg DAILY@06 PO Last administered on 01/31/17 05 :54; Admin Dose 40 MG; Start 01/29/17 at 16:00 Methylprednisolone Sodium Succinate (Solu-Medrol) 40 mg Q12 IV Last administered on 01/31/17 09:27; Admin Dose 40 MG; Start 01/29/17 at 17:00 Epoetin Larry (Epogen (Non Esrd/Non Oncology)) 3,000 units MoWeFr@17 SC ; Start 01/31/17 at 17:00 Epoetin Larry (Epogen (Non Esrd/Non Oncology)) 2,000 units MoWeFr@17 SC ; Start 01/31/17 at 17:00 Heparin Sodium (Porcine) (Heparin (5000 Units/0.5 ml)) 5,000 unit Q8 SC Last administered on 01/31/17 06:05; Admin Dose 5,000 UNIT; Start 3/9/17 at 22:00 Metoprolol Tartrate (Lopressor) 50 mg BID PO Last administered on 01/31/17 09: 27; Admin Dose 50 MG; Start 01/30/17 at 21:00 Aspirin (Ecotrin) 325 mg DAILY PO Last administered on 01/31/17 09:26; Admin Dose 325 MG; Start 01/31/17 at 09:00 Diltiazem HCl (Cardizem Iv) 5 mg Q4 PRN IV HR>110 Hold SBP<100; Start 01/30/17 at 20:30 ERIN KOWALSKI MD Jan 31, 2017 11:15
--- NOTE | 2017-01-31 12:21 | CONS ---
Date/Time of Note Date/Time of Note DATE: 01/31/17 TIME: 12:16 Assessment/Plan Assessment/Plan Chief Complaint/Hosp Course IMPRESSION: 1. Atrial fibrillation, not currently on systemic anticoagulation but on asa, rate controlled 2. Shortness of breath, assess for congestive heart failure. 3. Diastolic dysfunction by 2D echo this admission. 4. Hypertension. 5. Possible chronic obstructive pulmonary disease. 6. Possible bronchitis. 7. Possible pneumonia. 8. Dyslipidemia. 9. Chronic kidney disease. 10. Anemia. 11. 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 -Continue asa/BB/statin -Continue steroids/bronchodilators/abx's -Contnue SQ heparin Problems: Consultation Date/Type/Reason Admit Date/Time Jan 29, 2017 at 03:02 Initial Consult Date 01/30/2017 Type of Consultation: Nephrology Reason for Consultation Cardiology Referring Provider: LOREN ROSE MD Exam/Review of Systems Vital Signs Vitals Vital Signs Date Time Temp Pulse Resp B/P Pulse Ox O2 Delivery O2 Flow Rate FiO2 01/31/17 11:14 98.0 88 18 122/63 95 01/31/17 09:35 Nasal Cannula 1.0 01/30/17 19:40 21 Intake and Output 01/30/17 01/30/17 01/31/17 15:00 23:00 07:00 Intake Total 1240 ml 550 ml Output Total 1100 ml Balance 1240 ml -550 ml Exam Review of Systems: CONSTITUTIONAL: No fevers, chills. PULMONARY: mild sob CARDIOVASCULAR: No chest pain/palpitations GASTROINTESTINAL: No nausea/vomiting. GENITOURINARY: No hematuria/dysuria. MUSCULOSKELETAL: No myagias/arthalgias. PSYCHIATRIC: The patient denies depression. NEUROLOGIC: No weakness Constitutional: alert, oriented Psych: no complaints ENMT: mucosa pink and moist Neck: jvd (9 cm water), supple Respiratory: diminished breath sounds (at bases/B) Cardiovascular: irregular rhythm Gastrointestinal: soft Musculoskeletal: muscle tone (normal) Extremities: pitting pedal edema (Bilateral) Results Result Diagram: 01/31/17 0555 01/31/17 0552 Results 24 hrs Laboratory Tests Test 01/31/17 00:56 01/31/17 05:51 01/31/17 05:52 01/31/17 05:55 Creatine Kinase 69 59 Creatine Kinase Index 2.5 3.1 Creatinine Kinase MB (Mass) 1.75 1.85 Troponin I 0.038 0.024 Anion Gap 17 H Blood Urea Nitrogen 61 H Calcium Level 8.9 Carbon Dioxide Level 19 L Chloride Level 107 Creatinine 2.55 H Glucose Level 172 Potassium Level 5.1 Sodium Level 138 Basophils # 0.0 Basophils % 0.1 Cholesterol Level 157 Cholesterol/HDL Ratio 3.6 Eosinophils # 0.0 Eosinophils % 0.0 HDL Cholesterol 43 Hematocrit 26.0 L Hemoglobin 8.5 L LDL Cholesterol, Calculated 93 Lymphocytes # 0.8 Lymphocytes % 7.0 L Mean Corpuscular Hemoglobin 30.2 Mean Corpuscular Hemoglobin Concent 32.7 Mean Corpuscular Volume 92.5 Mean Platelet Volume 9.4 Monocytes # 0.2 L Monocytes % 1.6 Neutrophils # 10.1 H Neutrophils % 90.7 H Nucleated Red Blood Cells # 0.0 Nucleated Red Blood Cells % 0.0 Platelet Count 315 Red Blood Count 2.81 L Red Cell Distribution Width 14.6 H Triglycerides Level 107 White Blood Count 11.1 H Medications Medications Current Medications Ceftriaxone Sodium (Rocephin) 50 ml @ 100 mls/hr Q24H IVPB Last administered on 01/31/17 05:50; Admin Dose 100 MLS/HR; Start 01/29/17 at 05:30 Acetaminophen (Tylenol Tab) 650 mg Q4H PRN PO PAIN AND OR ELEVATED TEMP Last administered on 01/29/17 18:54; Admin Dose 650 MG; Start 01/29/17 at 05:30 Guaifenesin/ Codeine Phosphate (Robitussin Ac Liquid Cup) 10 ml Q4H PRN PO COUGH Last administered on 01/29/17 18:54; Admin Dose 10 ML; Start 01/29/17 at 05 :30 Atorvastatin Calcium (Lipitor) 10 mg HS PO Last administered on 01/30/17 21:04 ; Admin Dose 10 MG; Start 01/29/17 at 21:00 Pantoprazole (Protonix Tab) 40 mg DAILY@06 PO Last administered on 01/31/17 05 :54; Admin Dose 40 MG; Start 01/29/17 at 16:00 Methylprednisolone Sodium Succinate (Solu-Medrol) 40 mg Q12 IV Last administered on 01/31/17 09:27; Admin Dose 40 MG; Start 01/29/17 at 17:00 Epoetin Larry (Epogen (Non Esrd/Non Oncology)) 3,000 units MoWeFr@17 SC ; Start 01/31/17 at 17:00 Epoetin Larry (Epogen (Non Esrd/Non Oncology)) 2,000 units MoWeFr@17 SC ; Start 01/31/17 at 17:00 Heparin Sodium (Porcine) (Heparin (5000 Units/0.5 ml)) 5,000 unit Q8 SC Last administered on 01/31/17 06:05; Admin Dose 5,000 UNIT; Start 01/30/17 at 22:00 Metoprolol Tartrate (Lopressor) 50 mg BID PO Last administered on 01/31/17 09: 27; Admin Dose 50 MG; Start 01/30/17 at 21:00 Aspirin (Ecotrin) 325 mg DAILY PO Last administered on 01/31/17 09:26; Admin Dose 325 MG; Start 01/31/17 at 09:00 Diltiazem HCl (Cardizem Iv) 5 mg Q4 PRN IV HR>110 Hold SBP<100; Start 01/30/17 at 20:30 ALVINA GARCIA Jan 31, 2017 12:21
--- NOTE | 2017-01-31 14:45 | RADRPT ---
Vent Rate: 93 bpm RR Interval: 0 msec WI Interval: 0 msec QRS Duration: 70 msec QT Interval: 360 msec QTC Interval: 447 msec P-R-T [place]: 0 - 57 - 56 degrees Atrial fibrillation with a competing junctional pacemaker Abnormal ECG Electronically Signed By: Tera Iraheta [id number]
--- NOTE | 2017-01-31 14:57 | PN ---
Date/Time of Note Date/Time of Note DATE: 01/31/17 TIME: 14:48 Assessment/Plan VTE Prophylaxis VTE Prophylaxis Intervention: SCD's Lines/Catheters IV [facility] [place] [facility] Urinary Cath still in place: No Assessment/Plan Chief Complaint/Hosp Course ASSESSMENT AND PLAN: - Possible bronchitis versus early pneumonia. Continue Levaquin, continue breathing treatments. - Ecoli urinary tract infection. Continue Levaquin. - Diastolic dysfunction congestive heart failure. Dr. Iraheta is following and cardiology consultation, continue gentle diuresis. - Atrial fibrillation at controlled rate. Continue aspirin and metoprolol. - Hypertension. Continue metoprolol. - Aortic stenosis. - Hyperlipidemia. Continue statin. - Possible chronic obstructive pulmonary disease exacerbation. Continue patient on breathing treatments, start the patient on steroids. Continue supplemental oxygen. - Stage IV chronic kidney disease. Kidney ultrasound is consistent with chronic kidney disease. Dr. Campos is following in nephrology consultation. - Gout. Continue allopurinol. Continue Lovenox for deep venous thrombosis prophylaxis and Protonix for peptic ulcer disease prophylaxis. Further recommendations based on clinical course. Plan of care discussed with Dr. Olivier. Problems: Subjective 24 Hr Interval Summary Free Text/Dictation Patient's complains of shortness of breath when lying down flat, however states that she is tired of sitting in bed. Patient denies nausea vomiting remains afebrile. Continues on supplemental oxygen via nasal cannula. Exam/Review of Systems Vital Signs Vitals Vital Signs Date Time Temp Pulse Resp B/P Pulse Ox O2 Delivery O2 Flow Rate FiO2 01/31/17 12:42 93 01/31/17 11:14 98.0 18 122/63 95 01/31/17 09:35 Nasal Cannula 1.0 01/30/17 19:40 21 Intake and Output 01/30/17 01/30/17 01/31/17 15:00 23:00 07:00 Intake Total 1240 ml 550 ml Output Total 1100 ml Balance 1240 ml -550 ml Exam Constitutional: alert, oriented Psych: no complaints Head: atraumatic, normocephalic Eyes: nl conjunctiva Neck: non-tender, supple Respiratory: other (Diminished at the bases) Cardiovascular: other (Irregularly irregular rhythm) Gastrointestinal: non-tender, soft Musculoskeletal: nl extremities to inspection, nl gait and stance Extremities: normal pulses 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 intact Results Result Diagram: 01/31/17 0555 01/31/17 0552 Results 24 hrs Laboratory Tests Test 01/31/17 00:56 01/31/17 05:51 01/31/17 05:52 01/31/17 05:55 Creatine Kinase 69 59 Creatine Kinase Index 2.5 3.1 Creatinine Kinase MB (Mass) 1.75 1.85 Troponin I 0.038 0.024 Anion Gap 17 H Blood Urea Nitrogen 61 H Calcium Level 8.9 Carbon Dioxide Level 19 L Chloride Level 107 Creatinine 2.55 H Glucose Level 172 Potassium Level 5.1 Sodium Level 138 Basophils # 0.0 Basophils % 0.1 Cholesterol Level 157 Cholesterol/HDL Ratio 3.6 Eosinophils # 0.0 Eosinophils % 0.0 HDL Cholesterol 43 Hematocrit 26.0 L Hemoglobin 8.5 L LDL Cholesterol, Calculated 93 Lymphocytes # 0.8 Lymphocytes % 7.0 L Mean Corpuscular Hemoglobin 30.2 Mean Corpuscular Hemoglobin Concent 32.7 Mean Corpuscular Volume 92.5 Mean Platelet Volume 9.4 Monocytes # 0.2 L Monocytes % 1.6 Neutrophils # 10.1 H Neutrophils % 90.7 H Nucleated Red Blood Cells # 0.0 Nucleated Red Blood Cells % 0.0 Platelet Count 315 Red Blood Count 2.81 L Red Cell Distribution Width 14.6 H Triglycerides Level 107 White Blood Count 11.1 H Medications Medications Current Medications Acetaminophen (Tylenol Tab) 650 mg Q4H PRN PO PAIN AND OR ELEVATED TEMP Last administered on 01/29/17 18:54; Admin Dose 650 MG; Start 01/29/17 at 05:30 Guaifenesin/ Codeine Phosphate (Robitussin Ac Liquid Cup) 10 ml Q4H PRN PO COUGH Last administered on 01/29/17 18:54; Admin Dose 10 ML; Start 01/29/17 at 05 :30 Atorvastatin Calcium (Lipitor) 10 mg HS PO Last administered on 01/30/17 21:04 ; Admin Dose 10 MG; Start 01/29/17 at 21:00 Pantoprazole (Protonix Tab) 40 mg DAILY@06 PO Last administered on 01/31/17 05 :54; Admin Dose 40 MG; Start 01/29/17 at 16:00 Methylprednisolone Sodium Succinate (Solu-Medrol) 40 mg Q12 IV Last administered on 01/31/17 09:27; Admin Dose 40 MG; Start 01/29/17 at 17:00 Epoetin Larry (Epogen (Non Esrd/Non Oncology)) 3,000 units MoWeFr@17 SC ; Start 01/31/17 at 17:00 Epoetin Larry (Epogen (Non Esrd/Non Oncology)) 2,000 units MoWeFr@17 SC ; Start 01/31/17 at 17:00 Heparin Sodium (Porcine) (Heparin (5000 Units/0.5 ml)) 5,000 unit Q8 SC Last administered on 01/31/17 06:05; Admin Dose 5,000 UNIT; Start 01/30/17 at 22:00 Metoprolol Tartrate (Lopressor) 50 mg BID PO Last administered on 01/31/17 09: 27; Admin Dose 50 MG; Start 01/30/17 at 21:00 Aspirin (Ecotrin) 325 mg DAILY PO Last administered on 01/31/17 09:26; Admin Dose 325 MG; Start 01/31/17 at 09:00 Diltiazem HCl (Cardizem Iv) 5 mg Q4 PRN IV HR>110 Hold SBP<100; Start 01/30/17 at 20:30 Furosemide 20 mg 20 mg DAILY@06 IV ; Start 01/31/17 at 12:30 Levofloxacin/ Dextrose 100 ml @ 100 mls/hr ONCE IVPB ; Start 01/31/17 at 15:00 ; Stop 01/31/17 at 19:00 Levofloxacin/ Dextrose (Levaquin 250 Mg/ D5W 50 ml (Pmx)) 50 ml @ 50 mls/hr Q48H IVPB ; Start 02/02/17 at 14:00 EDWAR VARGAS Jan 31, 2017 14:57
[2017-01-31] MEDS ORDERED: LEVOFLOXACIN 500MG/D5W (PMX) 100 ML IVPB SCH (15:00)
[2017-01-31] MEDS ORDERED: LIDOCAINE 1% (MDV) 20 ML INJ SC ONE (15:00)
[2017-01-31] MEDS ORDERED: EPOETIN 2000 UNITS/ML INJ (NON ESRD/NON ONCOLOGY) SC SCH (17:00)
[2017-01-31] MEDS: FUROSEMIDE 20 MG INJ IV SCH (17:12)
[2017-01-31] MEDS: EPOETIN 3000 UNITS/ML (NON ESRD/NON ONCOLOGY) SC SCH (17:28)
--- NOTE | 2017-01-31 17:50 | RADRPT ---
PROCEDURE: XR Chest. 01/31/2017. 1634 hours. CLINICAL INDICATION: Check PICC line position. TECHNIQUE: Single frontal view. COMPARISON: 01/31/2017. 1633 hours. FINDINGS: There is a right arm PICC line with the tip in the mid superior vena cava. Mild interstitial diseas e bilaterally, cardiomegaly, and atherosclerosis are unchanged. The lungs are otherwise clear. There is no pleural effusion. There is no pneumothorax. IMPRESSION: 1. Satisfactory position of right arm PICC line. 2. No other change from the prior study done earlier the same day. RPTAT: QQ .Raghav Aguirre MD, MD Date Time Electronically viewed and signed by .Raghav Aguirre MD, MD on 01/31/2017 17:50 .R/
--- NOTE | 2017-01-31 17:50 | RADRPT ---
PROCEDURE: XR Chest. CLINICAL INDICATION: Check PICC line position. TECHNIQUE: Single frontal view. COMPARISON: 01/29/2017. FINDINGS: There is a right arm PICC line with the tip in the right internal jugular vein. There is mild inter stitial disease bilaterally. The lungs are otherwise clear. The heart is enlarged. There is calcification in the aorta consistent with atherosclerosis. There is no pleural effusion. There is no pneumothorax. IMPRESSION: 1. Right arm PICC line tip in the right internal jugular vein. The PICC line nurse is aware of the findings. 2. Mild bilateral interstitial pulmonary disease. 3. Cardiomegaly and atherosclerosis. RPTAT: QQ .Raghav Aguirre MD, MD Date Time Electronically viewed and signed by .Raghav Aguirre MD, on 01/31/2017 17:49 .R/
[2017-01-31] MEDS: ATORVASTATIN 10 MG TAB PO SCH (21:02)
[2017-02-01] VITALS (13 sets, daily range): BP systolic 102–163; BP diastolic 65–75; PULSE 62–114; RESP 18–20
[2017-02-01] MEDS: GUAIFENESIN/CODEINE 5ML CUP PO PRN (01:26)
[2017-02-01] MEDS: ALBUTEROL/IPRATROPIUM (NEB) 3 ML AMP HHN PRN (03:35)
[2017-02-01] MEDS: FUROSEMIDE 20 MG INJ IV SCH (05:38)
[2017-02-01] MEDS: PANTOPRAZOLE (EC) 40 MG TAB PO SCH (05:38)
[2017-02-01] MEDS: HEPARIN 5,000 UNIT/0.5 ML SYG SC SCH ×2 (05:51→14:28)
[2017-02-01 06:13] LABS: ADD SCAN DIFF NO
[2017-02-01 06:26] LABS: BASOPHILS % 0.1 % (0.0-2.0); HEMATOCRIT 25.8 % (37.0-47.0); HEMOGLOBIN 8.4 g/dl (12.0-16.0); LYMPHOCYTES # 0.7 10^3/ul (0.8-2.9); LYMPHOCYTES % 5.6 % (15.0-51.0); MEAN CORPUSCULAR HGB CONC 32.6 g/dl (32.0-37.0); MEAN CORPUSCULAR VOLUME 95.2 fl (82.0-101.0); MEAN PLATELET VOLUME 9.4 fl (7.4-10.4); MONOCYTE # 0.3 10^3/ul (0.3-0.9); MONOCYTES % 2.3 % (0.0-11.0); NEUTROPHIL # 11.3 10^3/ul (1.6-7.5); NEUTROPHILS % 89.2 % (39.0-77.0); PLATELET COUNT 326 10^3/UL (140-415); RED BLOOD COUNT 2.71 10^6/ul (4.20-5.40); RED CELL DISTRIBUTION WIDTH 15.1 % (11.5-14.5); WHITE BLOOD COUNT 12.7 10^3/ul (4.8-10.8)
[2017-02-01 06:44] LABS: IRON 72 ug/dl (35-150)
[2017-02-01 06:49] LABS: POTASSIUM 4.9 mmol/L (3.5-5.1)
[2017-02-01 06:52] LABS: CREATININE 2.32 mg/dl (0.44-1.00)
[2017-02-01 06:53] LABS: CALCIUM 8.5 mg/dl (8.4-10.2); TOTAL IRON BINDING CAPACITY 208 ug/dl (241-421)
[2017-02-01] MEDS: METOPROLOL 50 MG TAB PO SCH ×2 (08:30→21:35)
[2017-02-01] MEDS: METHYLPREDNISOLONE 40 MG INJ IV SCH (08:30)
[2017-02-01] MEDS: ASPIRIN (EC) 325 MG TAB PO SCH (08:30)
[2017-02-01] MEDS: ALBUTEROL/IPRATROPIUM (NEB) 3 ML AMP HHN SCH ×3 (09:13→21:16)
--- NOTE | 2017-02-01 13:12 | PN ---
Date/Time of Note Date/Time of Note DATE: 02/01/17 TIME: 13:10 Assessment/Plan VTE Prophylaxis VTE Prophylaxis Intervention: LMWH Lines/Catheters IV [facility] Type (from [facility] PICC Line Central line still needed: Yes Urinary Cath still in place: No Assessment/Plan Assessment/Plan - Possible bronchitis versus early pneumonia. -Continue Levaquin, continue breathing treatments. - Ecoli urinary tract infection. Continue Levaquin. - Diastolic dysfunction congestive heart failure. - per Dr. Iraheta in cardiology consultation, continue gentle diuresis. - Atrial fibrillation at controlled rate. Continue aspirin and metoprolol. - Hypertension. Continue metoprolol. - Aortic stenosis. - Hyperlipidemia. Continue statin. - Possible chronic obstructive pulmonary disease exacerbation. Continue patient on breathing treatments, start the patient on steroids. Continue supplemental oxygen. - Stage IV chronic kidney disease. Kidney ultrasound is consistent with chronic kidney disease. - er Dr. Campos is following in nephrology consultation. - Gout. Continue allopurinol. Continue Lovenox for deep venous thrombosis prophylaxis and Protonix for peptic ulcer disease prophylaxis. Further recommendations based on clinical course. Plan of care discussed with Dr. Olivier. Subjective 24 Hr Interval Summary Free Text/Dictation NAD, SOB at times, feels better. [facility] staff. Constitutional: improved Eyes: no complaints ENT: no complaints Respiratory: no complaints Cardiovascular: no complaints Gastrointestinal: no complaints Genitourinary: no complaints Musculoskeletal: no complaints Skin: no complaints Neurologic: no complaints Endocrine: no complaints Lymphatic: no complaints Psychological: no complaints Immunologic: no complaints Exam/Review of Systems Vital Signs Vitals Vital Signs Date Time Temp Pulse Resp B/P Pulse Ox O2 Delivery O2 Flow Rate FiO2 02/01/17 11:30 97.4 63 18 146/70 94 02/01/17 09:13 Nasal Cannula 3.0 02/01/17 09:13 28 Intake and Output 01/31/17 01/31/17 02/01/17 15:00 23:00 07:00 Intake Total 950 ml 600 ml Output Total 1400 ml 100 ml Balance -450 ml 500 ml Exam Constitutional: alert, oriented, well developed Psych: no complaints Head: atraumatic Eyes: EOMI, PERRL, nl sclera ENMT: nl external ears & nose Neck: non-tender Respiratory: diminished breath sounds Cardiovascular: nl pulses Gastrointestinal: non-tender, soft Musculoskeletal: nl extremities to inspection Extremities: normal pulses 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: nl mental status, nl speech Skin: nl turgor Lymph: nontender Results Result Diagram: 02/01/17 0553 02/01/17 0543 Results 24 hrs Laboratory Tests Test 02/01/17 05:43 02/01/17 05:53 Anion Gap 20 H Blood Urea Nitrogen 72 H Calcium Level 8.5 Carbon Dioxide Level 19 L Chloride Level 106 Creatinine 2.32 H Glucose Level 176 Iron Level 72 Percent Iron Saturation 35 Phosphorus Level 4.2 Potassium Level 4.9 Sodium Level 140 Total Iron Binding Capacity 208 L Basophils # 0.0 Basophils % 0.1 Eosinophils # 0.0 Eosinophils % 0.0 Hematocrit 25.8 L Hemoglobin 8.4 L Lymphocytes # 0.7 L Lymphocytes % 5.6 L Mean Corpuscular Hemoglobin 31.0 Mean Corpuscular Hemoglobin Concent 32.6 Mean Corpuscular Volume 95.2 Mean Platelet Volume 9.4 Monocytes # 0.3 Monocytes % 2.3 Neutrophils # 11.3 H Neutrophils % 89.2 H Nucleated Red Blood Cells # 0.0 Nucleated Red Blood Cells % 0.0 Platelet Count 326 Red Blood Count 2.71 L Red Cell Distribution Width 15.1 H White Blood Count 12.7 H Medications Medications Current Medications Acetaminophen (Tylenol Tab) 650 mg Q4H PRN PO PAIN AND OR ELEVATED TEMP Last administered on 01/29/17 18:54; Admin Dose 650 MG; Start 01/29/17 at 05:30 Guaifenesin/ Codeine Phosphate (Robitussin Ac Liquid Cup) 10 ml Q4H PRN PO COUGH Last administered on 02/01/17 01:26; Admin Dose 10 ML; Start 01/29/17 at 05:30 Atorvastatin Calcium (Lipitor) 10 mg HS PO Last administered on 01/31/17 21:02 ; Admin Dose 10 MG; Start 01/29/17 at 21:00 Pantoprazole (Protonix Tab) 40 mg DAILY@06 PO Last administered on 02/01/17 05 :38; Admin Dose 40 MG; Start 01/29/17 at 16:00 Methylprednisolone Sodium Succinate (Solu-Medrol) 40 mg Q12 IV Last administered on 02/01/17 08:30; Admin Dose 40 MG; Start 01/29/17 at 17:00 Epoetin Larry (Epogen (Non Esrd/Non Oncology)) 3,000 units MoWeFr@17 SC Last administered on 01/31/17 17:28; Admin Dose 3,000 UNITS; Start 01/31/17 at 17:00 Heparin Sodium (Porcine) (Heparin (5000 Units/0.5 ml)) 5,000 unit Q8 SC Last administered on 02/01/17 05:51; Admin Dose 5,000 UNIT; Start 01/30/17 at 22:00 Metoprolol Tartrate (Lopressor) 50 mg BID PO Last administered on 02/01/17 08: 30; Admin Dose 50 MG; Start 01/30/17 at 21:00 Aspirin (Ecotrin) 325 mg DAILY PO Last administered on 02/01/17 08:30; Admin Dose 325 MG; Start 01/31/17 at 09:00 Diltiazem HCl (Cardizem Iv) 5 mg Q4 PRN IV HR>110 Hold SBP<100; Start 01/30/17 at 20:30 Furosemide (Lasix) 20 mg DAILY@06 IV Last administered on 02/01/17 05:38; Admin Dose 20 MG; Start 01/31/17 at 12:30 IV Flush (NS 10 ml) 10 ml PRN PRN IV FLUSH LINE; Start 01/31/17 at 17:30 Epoetin Larry (Epogen (Non Esrd/Non Oncology)) 3,000 units MoWeFr@17 SC ; Start 02/03/17 at 17:00 Oxycodone/ Acetaminophen (Percocet (5/ 325)) 1 tab Q4H PRN PO PAIN; Start 02/01 at 07:30 Levofloxacin (Levaquin) 500 mg Q2D@06 PO ; Start 02/02/17 at 06:00 KATIE MENDEZ Feb 01, 2017 13:12
--- NOTE | 2017-02-01 14:35 | CONS ---
Date/Time of Note Date/Time of Note DATE: 02/01/17 TIME: 14:34 Assessment/Plan Assessment/Plan Chief Complaint/Hosp Course IMPRESSION: 1. Atrial fibrillation, not currently on systemic anticoagulation but on asa, rate controlled 2. Shortness of breath, assess for congestive heart failure. 3. Diastolic dysfunction by 2D echo this admission. 4. Hypertension. 5. Possible chronic obstructive pulmonary disease. 6. Possible bronchitis. 7. Possible pneumonia. 8. Dyslipidemia. 9. Chronic kidney disease. 10. Anemia. 11. Leukocytosis Recc: -Tele -serial ecg;'s -gentle lasix diuresis following community health director/volume status closely -Continue asa/BB/statin -Continue steroids/bronchodilators/abx's -Contnue SQ heparin -Follow for recurrent AF -Cxr to assess for degree of PVC Problems: Consultation Date/Type/Reason Admit Date/Time Jan 31, 2017 at 15:05 Initial Consult Date 01/30/2017 Type of Consultation: Cardiology Reason for Consultation AF/sob Referring Provider: LOREN ROSE MD Exam/Review of Systems Vital Signs Vitals Vital Signs Date Time Temp Pulse Resp B/P Pulse Ox O2 Delivery O2 Flow Rate FiO2 02/01/17 13:35 68 20 21 02/01/17 11:30 97.4 146/70 94 02/01/17 09:13 Nasal Cannula 3.0 Intake and Output 01/31/17 01/31/17 02/01/17 15:00 23:00 07:00 Intake Total 950 ml 600 ml Output Total 1400 ml 100 ml Balance -450 ml 500 ml Exam Review of Systems: CONSTITUTIONAL: No fevers, chills. PULMONARY: mild sob CARDIOVASCULAR: No chest pain/palpitations GASTROINTESTINAL: No nausea/vomiting. GENITOURINARY: No hematuria/dysuria. MUSCULOSKELETAL: No myagias/arthalgias. PSYCHIATRIC: The patient denies depression. NEUROLOGIC: No weakness Constitutional: alert, oriented Psych: no complaints Head: normocephalic ENMT: mucosa pink and moist Neck: jvd (9 cm water), supple Respiratory: diminished breath sounds (at bases/B) Cardiovascular: regular rate and rhythm Gastrointestinal: non-tender, soft Musculoskeletal: muscle tone (normal) Extremities: pitting pedal edema (Bilateral) 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: other (No focal deficits) Results Result Diagram: 02/01/17 0553 02/01/17 0543 Results 24 hrs Laboratory Tests Test 02/01/17 05:43 02/01/17 05:53 Anion Gap 20 H Blood Urea Nitrogen 72 H Calcium Level 8.5 Carbon Dioxide Level 19 L Chloride Level 106 Creatinine 2.32 H Glucose Level 176 Iron Level 72 Percent Iron Saturation 35 Phosphorus Level 4.2 Potassium Level 4.9 Sodium Level 140 Total Iron Binding Capacity 208 L Basophils # 0.0 Basophils % 0.1 Eosinophils # 0.0 Eosinophils % 0.0 Hematocrit 25.8 L Hemoglobin 8.4 L Lymphocytes # 0.7 L Lymphocytes % 5.6 L Mean Corpuscular Hemoglobin 31.0 Mean Corpuscular Hemoglobin Concent 32.6 Mean Corpuscular Volume 95.2 Mean Platelet Volume 9.4 Monocytes # 0.3 Monocytes % 2.3 Neutrophils # 11.3 H Neutrophils % 89.2 H Nucleated Red Blood Cells # 0.0 Nucleated Red Blood Cells % 0.0 Platelet Count 326 Red Blood Count 2.71 L Red Cell Distribution Width 15.1 H White Blood Count 12.7 H Medications Medications Current Medications Acetaminophen (Tylenol Tab) 650 mg Q4H PRN PO PAIN AND OR ELEVATED TEMP Last administered on 01/29/17 18:54; Admin Dose 650 MG; Start 01/29/17 at 05:30 Guaifenesin/ Codeine Phosphate (Robitussin Ac Liquid Cup) 10 ml Q4H PRN PO COUGH Last administered on 02/01/17 01:26; Admin Dose 10 ML; Start 01/29/17 at 05:30 Atorvastatin Calcium (Lipitor) 10 mg HS PO Last administered on 01/31/17 21:02 ; Admin Dose 10 MG; Start 01/29/17 at 21:00 Pantoprazole (Protonix Tab) 40 mg DAILY@06 PO Last administered on 02/01/17 05 :38; Admin Dose 40 MG; Start 01/29/17 at 16:00 Methylprednisolone Sodium Succinate (Solu-Medrol) 40 mg Q12 IV Last administered on 02/01/17 08:30; Admin Dose 40 MG; Start 01/29/17 at 17:00 Epoetin Larry (Epogen (Non Esrd/Non Oncology)) 3,000 units MoWeFr@17 SC Last administered on 01/31/17 17:28; Admin Dose 3,000 UNITS; Start 01/31/17 at 17:00 Heparin Sodium (Porcine) (Heparin (5000 Units/0.5 ml)) 5,000 unit Q8 SC Last administered on 02/01/17 14:28; Admin Dose 5,000 UNIT; Start 01/30/17 at 22:00 Metoprolol Tartrate (Lopressor) 50 mg BID PO Last administered on 02/01/17 08: 30; Admin Dose 50 MG; Start 01/30/17 at 21:00 Aspirin (Ecotrin) 325 mg DAILY PO Last administered on 02/01/17 08:30; Admin Dose 325 MG; Start 01/31/17 at 09:00 Diltiazem HCl (Cardizem Iv) 5 mg Q4 PRN IV HR>110 Hold SBP<100; Start 01/30/17 at 20:30 Furosemide (Lasix) 20 mg DAILY@06 IV Last administered on 02/01/17 05:38; Admin Dose 20 MG; Start 01/31/17 at 12:30 IV Flush (NS 10 ml) 10 ml PRN PRN IV FLUSH LINE; Start 01/31/17 at 17:30 Epoetin Larry (Epogen (Non Esrd/Non Oncology)) 3,000 units MoWeFr@17 SC ; Start 02/03/17 at 17:00 Oxycodone/ Acetaminophen (Percocet (5/ 325)) 1 tab Q4H PRN PO PAIN; Start 02/01 at 07:30 Levofloxacin (Levaquin) 500 mg Q2D@06 PO ; Start 02/02/17 at 06:00 ALVINA GARCIA Feb 01, 2017 14:35
[2017-02-01] MEDS ORDERED: SOD CHLORIDE 0.9% 100 ML ONE (16:42)
--- NOTE | 2017-02-01 20:38 | RADRPT ---
PROCEDURE: XR Chest. CLINICAL INDICATION: Shortness of breath. TECHNIQUE: Single frontal view. COMPARISON: 01/31/2017. FINDINGS: The right arm PICC line remains in satisfactory position. Mild interstitial disease bilaterally is unchanged. The lungs are otherwise clear. The heart is enlarged. There is calcification in the aorta consistent with atherosclerosis. There is no pleural effusion or pneumothorax. There are severe degenerative changes of both glenohumeral joints. IMPRESSION: 1. Right arm PICC line. 2. Mild bilateral interstitial pulmonary disease. 3. Cardiomegaly and atherosclerosis. 4. 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 RPTAT: QQ .Raghav Aguirre MD, MD Date Time Electronically viewed and signed by .Raghav Aguirre MD, MD on 02/01/2017 20:38 .R/
[2017-02-01] MEDS: ATORVASTATIN 10 MG TAB PO SCH (21:34)
[2017-02-01] MEDS: OXYCODONE/ACETAMINOPHEN (5/325) TAB PO PRN (21:35)
--- NOTE | 2017-02-01 21:40 | CONS ---
Date/Time of Note Date/Time of Note DATE: 02/01/17 TIME: 21:37 Assessment/Plan Assessment/Plan Chief Complaint/Hosp Course multiple problems MARIANO improving Pt prb has ckd4, will get 24 hr studies Anemiaa, increase epo note Iron Sat is ok Problems: Consultation Date/Type/Reason Admit Date/Time Jan 31, 2017 at 15:05 Initial Consult Date Type of Consultation: renal Referring Provider: LOREN ROSE MD Exam/Review of Systems Vital Signs Vitals Vital Signs Date Time Temp Pulse Resp B/P Pulse Ox O2 Delivery O2 Flow Rate FiO2 02/01/17 21:20 72 21 96 21 02/01/17 19:48 97.8 146/67 02/01/17 09:13 Nasal Cannula 3.0 Intake and Output 01/31/17 01/31/17 02/01/17 15:00 23:00 07:00 Intake Total 950 ml 600 ml Output Total 1400 ml 100 ml Balance -450 ml 500 ml Exam Constitutional: alert, obese, oriented, well developed Psych: nl mood/affect, no complaints Head: atraumatic, normocephalic Eyes: EOMI, PERRL, nl conjunctiva, nl lids, nl sclera ENMT: nl external ears & nose, nl lips & teeth, nl nasal mucosa & septum Neck: non-tender, supple Respiratory: clear to auscultation, normal air movement Cardiovascular: nl pulses, regular rate and rhythm Gastrointestinal: nl liver, spleen, non-tender, soft Genitourinary - Female: other (fabian) Musculoskeletal: nl extremities to inspection, nl gait and stance Extremities: normal pulses 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: COTTON AGENT II-XII intact, nl mental status, nl speech, nl strength Skin: nl turgor, No rash or lesions Lymph: nl lymph nodes Results Result Diagram: 02/01/17 0553 02/01/17 0543 Results 24 hrs Laboratory Tests Test 02/01/17 05:43 02/01/17 05:53 Anion Gap 20 H Blood Urea Nitrogen 72 H Calcium Level 8.5 Carbon Dioxide Level 19 L Chloride Level 106 Creatinine 2.32 H Glucose Level 176 Iron Level 72 Percent Iron Saturation 35 Phosphorus Level 4.2 Potassium Level 4.9 Sodium Level 140 Total Iron Binding Capacity 208 L Basophils # 0.0 Basophils % 0.1 Eosinophils # 0.0 Eosinophils % 0.0 Hematocrit 25.8 L Hemoglobin 8.4 L Lymphocytes # 0.7 L Lymphocytes % 5.6 L Mean Corpuscular Hemoglobin 31.0 Mean Corpuscular Hemoglobin Concent 32.6 Mean Corpuscular Volume 95.2 Mean Platelet Volume 9.4 Monocytes # 0.3 Monocytes % 2.3 Neutrophils # 11.3 H Neutrophils % 89.2 H Nucleated Red Blood Cells # 0.0 Nucleated Red Blood Cells % 0.0 Platelet Count 326 Red Blood Count 2.71 L Red Cell Distribution Width 15.1 H White Blood Count 12.7 H Medications Medications Current Medications Acetaminophen (Tylenol Tab) 650 mg Q4H PRN PO PAIN AND OR ELEVATED TEMP Last administered on 01/29/17 18:54; Admin Dose 650 MG; Start 01/29/17 at 05:30 Guaifenesin/ Codeine Phosphate (Robitussin Ac Liquid Cup) 10 ml Q4H PRN PO COUGH Last administered on 02/01/17 01:26; Admin Dose 10 ML; Start 01/29/17 at 05:30 Atorvastatin Calcium (Lipitor) 10 mg HS PO Last administered on 01/31/17 21:02 ; Admin Dose 10 MG; Start 01/29/17 at 21:00 Pantoprazole (Protonix Tab) 40 mg DAILY@06 PO Last administered on 02/01/17 05 :38; Admin Dose 40 MG; Start 01/29/17 at 16:00 Epoetin Larry (Epogen (Non Esrd/Non Oncology)) 3,000 units MoWeFr@17 SC Last administered on 01/31/17 17:28; Admin Dose 3,000 UNITS; Start 01/31/17 at 17:00 Metoprolol Tartrate (Lopressor) 50 mg BID PO Last administered on 02/01/17 08: 30; Admin Dose 50 MG; Start 01/30/17 at 21:00 Aspirin (Ecotrin) 325 mg DAILY PO Last administered on 02/01/17 08:30; Admin Dose 325 MG; Start 01/31/17 at 09:00 Diltiazem HCl (Cardizem Iv) 5 mg Q4 PRN IV HR>110 Hold SBP<100; Start 01/30/17 at 20:30 Furosemide (Lasix) 20 mg DAILY@06 IV Last administered on 02/01/17 05:38; Admin Dose 20 MG; Start 01/31/17 at 12:30 IV Flush (NS 10 ml) 10 ml PRN PRN IV FLUSH LINE; Start 01/31/17 at 17:30 Oxycodone/ Acetaminophen (Percocet (5/ 325)) 1 tab Q4H PRN PO PAIN; Start 02/01 at 07:30 Levofloxacin (Levaquin) 500 mg Q2D@06 PO ; Start 02/02/17 at 06:00 Methylprednisolone Sodium Succinate 20 mg 20 mg Q12 IV ; Start 02/02/17 at 09:00 Piperacillin Sod/ Tazobactam Sod 50 ml @ 100 mls/hr Q6 IVPB ; Start 02/02/17 at 00:00; Status UNV Piperacillin Sod/ Tazobactam Sod (Zosyn 2.25gm/ 50ml (Pmx)) 50 ml @ 100 mls/hr Q8 IVPB ; Start 02/01/17 at 22:00; Status UNV CLAUDIA MITCHELL MD Feb 01, 2017 21:40
[2017-02-01] MEDS: PIPER-TAZO 2.25 GM (PMX) 50 ML IVPB SCH (21:56)
[2017-02-02] VITALS (13 sets, daily range): BP systolic 124–156; BP diastolic 63–74; PULSE 53–61; RESP 18–20
[2017-02-02] MEDS ORDERED: PIPER-TAZO 2.25 GM (PMX) 50 ML IVPB SCH
[2017-02-02] MEDS: ALBUTEROL/IPRATROPIUM (NEB) 3 ML AMP HHN PRN (01:28)
[2017-02-02 05:58] LABS: ADD SCAN DIFF NO
[2017-02-02] MEDS ORDERED: LEVOFLOXACIN 250 MG TAB GTB SCH (06:00)
[2017-02-02 06:08] LABS: BASOPHILS % 0.1 % (0.0-2.0); HEMATOCRIT 26.4 % (37.0-47.0); HEMOGLOBIN 8.6 g/dl (12.0-16.0); LYMPHOCYTES % 7.1 % (15.0-51.0); MEAN CORPUSCULAR HEMOGLOBIN 30.8 pg (29.0-33.0); MEAN CORPUSCULAR HGB CONC 32.6 g/dl (32.0-37.0); MEAN CORPUSCULAR VOLUME 94.6 fl (82.0-101.0); MEAN PLATELET VOLUME 9.8 fl (7.4-10.4); MONOCYTE # 0.3 10^3/ul (0.3-0.9); MONOCYTES % 2.2 % (0.0-11.0); NEUTROPHIL # 11.6 10^3/ul (1.6-7.5); NEUTROPHILS % 86.3 % (39.0-77.0); NUCLEATED RED BLOOD CELLS # 0.1 10^3/ul (0.0-0.0); NUCLEATED RED BLOOD CELLS% 0.5 /100WBC (0.0-0.0); PLATELET COUNT 325 10^3/UL (140-415); RED BLOOD COUNT 2.79 10^6/ul (4.20-5.40); RED CELL DISTRIBUTION WIDTH 15.4 % (11.5-14.5); WHITE BLOOD COUNT 13.4 10^3/ul (4.8-10.8)
[2017-02-02 06:22] LABS: POTASSIUM 4.8 mmol/L (3.5-5.1)
[2017-02-02 06:24] LABS: CREATININE 2.38 mg/dl (0.44-1.00)
[2017-02-02 06:25] LABS: CALCIUM 8.6 mg/dl (8.4-10.2)
[2017-02-02] MEDS: PIPER-TAZO 2.25 GM (PMX) 50 ML IVPB SCH ×3 (06:26→21:22)
[2017-02-02] MEDS: FUROSEMIDE 20 MG INJ IV SCH (06:27)
[2017-02-02] MEDS: LEVOFLOXACIN 500 MG TAB PO SCH (06:27)
[2017-02-02] MEDS: PANTOPRAZOLE (EC) 40 MG TAB PO SCH (06:27)
[2017-02-02] MEDS: ALBUTEROL/IPRATROPIUM (NEB) 3 ML AMP HHN SCH ×3 (08:44→20:18)
[2017-02-02] MEDS: METHYLPREDNISOLONE 40 MG INJ IV SCH ×2 (09:01→21:22)
[2017-02-02] MEDS: METOPROLOL 50 MG TAB PO SCH ×2 (09:02→21:00)
[2017-02-02] MEDS: ASPIRIN (EC) 325 MG TAB PO SCH (09:02)
--- NOTE | 2017-02-02 13:58 | CONS ---
Date/Time of Note Date/Time of Note DATE: 02/02/17 TIME: 13:56 Assessment/Plan Assessment/Plan Chief Complaint/Hosp Course IMPRESSION: 1. Atrial fibrillation, not currently on systemic anticoagulation but on asa, rate controlled 2. Shortness of breath, assess for congestive heart failure. 3. Diastolic dysfunction by 2D echo this admission.-CHF by cxr 02/01 4. Hypertension. 5. Possible chronic obstructive pulmonary disease. 6. Possible bronchitis. 7. Possible pneumonia. 8. Dyslipidemia. 9. Chronic kidney disease. 10. Anemia. 11. Leukocytosis Recc: -Tele -serial ecg;'s -gentle lasix diuresis following etl developer/volume status closely-? need for HD -Continue asa/BB/statin -Continue steroids/bronchodilators/abx's -Contnue SQ heparin -Follow for recurrent AF Problems: Consultation Date/Type/Reason Admit Date/Time Jan 31, 2017 at 15:05 Initial Consult Date 01/30/2017 Type of Consultation: Cardiology Reason for Consultation CHF Referring Provider: LOREN ROSE MD Exam/Review of Systems Vital Signs Vitals Vital Signs Date Time Temp Pulse Resp B/P Pulse Ox O2 Delivery O2 Flow Rate FiO2 02/02/17 12:48 70 21 95 21 02/02/17 11:09 98.8 152/69 02/02/17 07:35 Nasal Cannula 2.0 Intake and Output 02/01/17 02/01/17 02/02/17 15:00 23:00 07:00 Intake Total 700 ml Output Total 400 ml Balance 300 ml Exam Review of Systems: CONSTITUTIONAL: No fevers, chills. PULMONARY: mild sob CARDIOVASCULAR: No chest pain/palpitations GASTROINTESTINAL: No nausea/vomiting. GENITOURINARY: No hematuria/dysuria. MUSCULOSKELETAL: No myagias/arthalgias. PSYCHIATRIC: The patient denies depression. NEUROLOGIC: generalized weakness Constitutional: alert Psych: no complaints Head: normocephalic ENMT: mucosa pink and moist Neck: jvd (9 cm water), supple Respiratory: diminished breath sounds (at bases/B) Cardiovascular: regular rate and rhythm Gastrointestinal: non-tender, soft Musculoskeletal: muscle tone Extremities: edema (none) 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: other (No focal deficits) Results Result Diagram: 02/02/1752202/02/17522 Results 24 hrs Laboratory Tests Test 02/02/17 05:23 Anion Gap 17 H Basophils # 0.0 Basophils % 0.1 Blood Urea Nitrogen 71 H Calcium Level 8.6 Carbon Dioxide Level 20 L Chloride Level 107 Creatinine 2.38 H Eosinophils # 0.0 Eosinophils % 0.0 Glucose Level 162 Hematocrit 26.4 L Hemoglobin 8.6 L Lymphocytes # 1.0 Lymphocytes % 7.1 L Mean Corpuscular Hemoglobin 30.8 Mean Corpuscular Hemoglobin Concent 32.6 Mean Corpuscular Volume 94.6 Mean Platelet Volume 9.8 Monocytes # 0.3 Monocytes % 2.2 Neutrophils # 11.6 H Neutrophils % 86.3 H Nucleated Red Blood Cells # 0.1 H Nucleated Red Blood Cells % 0.5 H Platelet Count 325 Potassium Level 4.8 Red Blood Count 2.79 L Red Cell Distribution Width 15.4 H Sodium Level 139 White Blood Count 13.4 H Medications Medications Current Medications Acetaminophen (Tylenol Tab) 650 mg Q4H PRN PO PAIN AND OR ELEVATED TEMP Last administered on 01/29/17 18:54; Admin Dose 650 MG; Start 01/29/17 at 05:30 Guaifenesin/ Codeine Phosphate (Robitussin Ac Liquid Cup) 10 ml Q4H PRN PO COUGH Last administered on 02/01/17 01:26; Admin Dose 10 ML; Start 01/29/17 at 05:30 Atorvastatin Calcium (Lipitor) 10 mg HS PO Last administered on 02/01/17 21:34 ; Admin Dose 10 MG; Start 01/29/17 at 21:00 Pantoprazole (Protonix Tab) 40 mg DAILY@06 PO Last administered on 02/02/17 06 :27; Admin Dose 40 MG; Start 01/29/17 at 16:00 Epoetin Larry (Epogen (Non Esrd/Non Oncology)) 3,000 units MoWeFr@17 SC Last administered on 01/31/17 17:28; Admin Dose 3,000 UNITS; Start 01/31/17 at 17:00 Metoprolol Tartrate (Lopressor) 50 mg BID PO Last administered on 02/02/17 09: 02; Admin Dose 50 MG; Start 01/30/17 at 21:00 Aspirin (Ecotrin) 325 mg DAILY PO Last administered on 02/02/17 09:02; Admin Dose 325 MG; Start 01/31/17 at 09:00 Diltiazem HCl (Cardizem Iv) 5 mg Q4 PRN IV HR>110 Hold SBP<100; Start 01/30/17 at 20:30 Furosemide (Lasix) 20 mg DAILY@06 IV Last administered on 02/02/17 06:27; Admin Dose 20 MG; Start 01/31/17 at 12:30 IV Flush (NS 10 ml) 10 ml PRN PRN IV FLUSH LINE; Start 01/31/17 at 17:30 Oxycodone/ Acetaminophen (Percocet (5/ 325)) 1 tab Q4H PRN PO PAIN Last administered on 02/01/17 21:35; Admin Dose 1 TAB; Start 02/01/17 at 07:30 Levofloxacin (Levaquin) 500 mg Q2D@06 PO Last administered on 02/02/17 06:27; Admin Dose 500 MG; Start 02/02/17 at 06:00 Methylprednisolone Sodium Succinate 20 mg 20 mg Q12 IV Last administered on 09:01; Admin Dose 20 MG; Start 02/02/17 at 09:00 Piperacillin Sod/ Tazobactam Sod (Zosyn 2.25gm/ 50ml (Pmx)) 50 ml @ 100 mls/hr Q8 IVPB Last administered on 02/02/17 06:26; Admin Dose 100 MLS/HR; Start 10/10 at 22:00 ALVINA GARCIA Feb 02, 2017 13:58
[2017-02-02] MEDS ORDERED: LEVOFLOXACIN 250MG/D5W (PMX) 50 ML IVPB SCH (14:00)
[2017-02-02] MEDS: OXYCODONE/ACETAMINOPHEN (5/325) TAB PO PRN (14:15)
[2017-02-02] MEDS ORDERED: ONDANSETRON 4 MG TAB PO PRN (14:30)
[2017-02-02] MEDS ORDERED: AL HYDROX/MG HYDROX/SIMETH 30 ML CUP PO PRN (14:30)
[2017-02-02] MEDS ORDERED: NITROGLYCERIN (SL) 0.4 MG TAB SL PRN (14:30)
[2017-02-02 14:32] LABS: COLLECTION PERIOD 24 hrs
--- NOTE | 2017-02-02 14:59 | PN ---
Date/Time of Note Date/Time of Note DATE: 02/02/17 TIME: 14:18 Assessment/Plan VTE Prophylaxis VTE Prophylaxis Intervention: SCD's Lines/Catheters IV Catheter Type (from Nrsg): PICC Line Central line still needed: Yes Urinary Cath still in place: No Assessment/Plan Assessment/Plan - Acute chest pain/gas pain, mehdi Iraheta- will do FU. MEHDI STAFF. con to monitor - Possible bronchitis versus early pneumonia. Continue Levaquin, continue breathing treatments. - Ecoli urinary tract infection. Continue Levaquin. - Diastolic dysfunction congestive heart failure. - per Dr. Iraheta in cardiology consultation, continue gentle diuresis. - Atrial fibrillation at controlled rate. Continue aspirin and metoprolol. - Hypertension. Continue metoprolol. - Aortic stenosis. - Hyperlipidemia. Continue statin. - Possible chronic obstructive pulmonary disease exacerbation. Continue patient on breathing treatments, start the patient on steroids. Continue supplemental oxygen. - Stage IV chronic kidney disease. Kidney ultrasound is consistent with chronic kidney disease. -per Dr. Campos in nephrology consultation. - Gout. Continue allopurinol. Continue Lovenox for deep venous thrombosis prophylaxis and Protonix for peptic ulcer disease prophylaxis. Further recommendations based on clinical course. Plan of care discussed with Dr. Olivier. Subjective 24 Hr Interval Summary Free Text/Dictation patient c/o chest pain/gas pain, mehdi Iraheta- will do FU. MEHDI STAFF. con to monitor Exam/Review of Systems Vital Signs Vitals Vital Signs Date Time Temp Pulse Resp B/P Pulse Ox O2 Delivery O2 Flow Rate FiO2 02/02/17 12:48 70 21 95 21 02/02/17 11:09 98.8 152/69 02/02/17 07:35 Nasal Cannula 2.0 Intake and Output 02/01/17 02/01/17 02/02/17 15:00 23:00 07:00 Intake Total 700 ml Output Total 400 ml Balance 300 ml Results Result Diagram: 02/02/1752202/02/17522 Results 24 hrs Laboratory Tests Test 02/02/17 05:23 Anion Gap 17 H Basophils # 0.0 Basophils % 0.1 Blood Urea Nitrogen 71 H Calcium Level 8.6 Carbon Dioxide Level 20 L Chloride Level 107 Creatinine 2.38 H Eosinophils # 0.0 Eosinophils % 0.0 Glucose Level 162 Hematocrit 26.4 L Hemoglobin 8.6 L Lymphocytes # 1.0 Lymphocytes % 7.1 L Mean Corpuscular Hemoglobin 30.8 Mean Corpuscular Hemoglobin Concent 32.6 Mean Corpuscular Volume 94.6 Mean Platelet Volume 9.8 Monocytes # 0.3 Monocytes % 2.2 Neutrophils # 11.6 H Neutrophils % 86.3 H Nucleated Red Blood Cells # 0.1 H Nucleated Red Blood Cells % 0.5 H Platelet Count 325 Potassium Level 4.8 Red Blood Count 2.79 L Red Cell Distribution Width 15.4 H Sodium Level 139 White Blood Count 13.4 H Medications Medications Current Medications Acetaminophen (Tylenol Tab) 650 mg Q4H PRN PO PAIN AND OR ELEVATED TEMP Last administered on 01/29/17 18:54; Admin Dose 650 MG; Start 01/29/17 at 05:30 Guaifenesin/ Codeine Phosphate (Robitussin Ac Liquid Cup) 10 ml Q4H PRN PO COUGH Last administered on 02/01/17 01:26; Admin Dose 10 ML; Start 01/29/17 at 05:30 Atorvastatin Calcium (Lipitor) 10 mg HS PO Last administered on 02/01/17 21:34 ; Admin Dose 10 MG; Start 01/29/17 at 21:00 Pantoprazole (Protonix Tab) 40 mg DAILY@06 PO Last administered on 02/02/17 06 :27; Admin Dose 40 MG; Start 01/29/17 at 16:00 Epoetin Larry (Epogen (Non Esrd/Non Oncology)) 3,000 units MoWeFr@17 SC Last administered on 01/31/17 17:28; Admin Dose 3,000 UNITS; Start 01/31/17 at 17:00 Metoprolol Tartrate (Lopressor) 50 mg BID PO Last administered on 02/02/17 09: 02; Admin Dose 50 MG; Start 01/30/17 at 21:00 Aspirin (Ecotrin) 325 mg DAILY PO Last administered on 02/02/17 09:02; Admin Dose 325 MG; Start 01/31/17 at 09:00 Diltiazem HCl (Cardizem Iv) 5 mg Q4 PRN IV HR>110 Hold SBP<100; Start 01/30/17 at 20:30 Furosemide (Lasix) 20 mg DAILY@06 IV Last administered on 02/02/17 06:27; Admin Dose 20 MG; Start 01/31/17 at 12:30 IV Flush (NS 10 ml) 10 ml PRN PRN IV FLUSH LINE; Start 01/31/17 at 17:30 Oxycodone/ Acetaminophen (Percocet (5/ 325)) 1 tab Q4H PRN PO PAIN Last administered on 02/01/17 21:35; Admin Dose 1 TAB; Start 02/01/17 at 07:30 Levofloxacin (Levaquin) 500 mg Q2D@06 PO Last administered on 02/02/17 06:27; Admin Dose 500 MG; Start 02/02/17 at 06:00 Methylprednisolone Sodium Succinate 20 mg 20 mg Q12 IV Last administered on 09:01; Admin Dose 20 MG; Start 02/02/17 at 09:00 Piperacillin Sod/ Tazobactam Sod (Zosyn 2.25gm/ 50ml (Pmx)) 50 ml @ 100 mls/hr Q8 IVPB Last administered on 02/02/17 06:26; Admin Dose 100 MLS/HR; Start 10/10 at 22:00 Nitroglycerin (Nitroglycerin (Sl Tab) 0.4 Mg) 1 tab Q5M PRN SL ANGINA; Start at 14:30 KATIE MENDEZ Feb 02, 2017 14:28
[2017-02-02 15:08] LABS: SCRET 2.38 mg/dl (0.44-1.00)
[2017-02-02 15:25] LABS: URINE TOTAL PROTEIN 38.9 mg/dl
--- NOTE | 2017-02-02 16:10 | RADRPT ---
Vent Rate: 65 bpm RR Interval: 0 msec RI Interval: 154 msec QRS Duration: 70 msec QT Interval: 446 msec QTC Interval: 463 msec P-R-T [place]: 61 - 21 - 42 degrees Normal sinus rhythm Normal ECG Electronically Signed By: Tera Iraheta [id number]
[2017-02-02 19:02] LABS: CK-MB 1.57 ng/ml (0.0-2.4)
[2017-02-02 19:05] LABS: TROPONIN-I 0.017 ng/ml (0.00-0.12)
[2017-02-02] MEDS: ATORVASTATIN 10 MG TAB PO SCH (21:22)
--- NOTE | 2017-02-02 22:43 | CONS ---
Date/Time of Note Date/Time of Note DATE: 02/02/17 TIME: 22:40 Assessment/Plan Assessment/Plan Chief Complaint/Hosp Course multiple problems MARIANO improving Pt prb has ckd4, will get 24 hr studies Anemiaa, increase epo note Iron Sat is ok Problems: Additional Assessment/Plan cREAT MAY DEOP BECAUSE OF DROP IN BODY MASS. Cont'd Hospitalization Reason: pT UNDERSTANDS HE MAY DIALYSDE [id number] NOW Consultation Date/Type/Reason Admit Date/Time Jan 31, 2017 at 15:05 Type of Consultation: RENAL Referring Provider: LOREN ROSE MD Exam/Review of Systems Vital Signs Vitals Vital Signs Date Time Temp Pulse Resp B/P Pulse Ox O2 Delivery O2 Flow Rate FiO2 02/02/17 20:31 59 02/02/17 20:18 21 95 21 02/02/17 20:00 97.7 144/69 02/02/17 07:35 Nasal Cannula 2.0 Intake and Output 02/01/17 02/01/17 02/02/17 15:00 23:00 07:00 Intake Total 700 ml Output Total 400 ml Balance 300 ml Exam Constitutional: alert, oriented, well developed Psych: nl mood/affect, no complaints Head: atraumatic, normocephalic Eyes: EOMI, PERRL, nl conjunctiva, nl lids, nl sclera ENMT: nl external ears & nose, nl lips & teeth, nl nasal mucosa & septum Neck: non-tender, supple Respiratory: clear to auscultation, normal air movement Cardiovascular: nl pulses, regular rate and rhythm Gastrointestinal: nl liver, spleen, non-tender, other (ABD OBESE), soft Musculoskeletal: nl extremities to inspection, nl gait and stance, other (sX ABENCE OF LT LEG ABOVE KNE) Extremities: normal pulses 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: FOX[employer] DEVELOPER II-XII intact, nl mental status, nl speech, nl strength Skin: nl turgor, No rash or lesions Lymph: nl lymph nodes Results Result Diagram: 02/02/1752202/02/17522 Results 24 hrs Laboratory Tests Test 02/02/17 05:23 02/02/17 10:00 02/02/17 18:10 Anion Gap 17 H Basophils # 0.0 Basophils % 0.1 Blood Urea Nitrogen 71 H Calcium Level 8.6 Carbon Dioxide Level 20 L Chloride Level 107 Creatinine 2.38 H Eosinophils # 0.0 Eosinophils % 0.0 Glucose Level 162 Hematocrit 26.4 L Hemoglobin 8.6 L Lymphocytes # 1.0 Lymphocytes % 7.1 L Mean Corpuscular Hemoglobin 30.8 Mean Corpuscular Hemoglobin Concent 32.6 Mean Corpuscular Volume 94.6 Mean Platelet Volume 9.8 Monocytes # 0.3 Monocytes % 2.2 Neutrophils # 11.6 H Neutrophils % 86.3 H Nucleated Red Blood Cells # 0.1 H Nucleated Red Blood Cells % 0.5 H Platelet Count 325 Potassium Level 4.8 Red Blood Count 2.79 L Red Cell Distribution Width 15.4 H Sodium Level 139 White Blood Count 13.4 H Creatinine Clearance 12.7 L Urine Collection Duration 24 Urine Creatinine Timed 24 Urine Random Creatinine 18.51 L Urine Total Protein 24 Hour > 600.0 H Urine Total Volume (Protein) 2350 Urine Total Volume 24 Hours 2350 Creatine Kinase 60 Creatine Kinase Index 2.6 Creatinine Kinase MB (Mass) 1.57 Troponin I 0.017 Medications Medications Current Medications Acetaminophen (Tylenol Tab) 650 mg Q4H PRN PO PAIN AND OR ELEVATED TEMP Last administered on 01/29/17 18:54; Admin Dose 650 MG; Start 01/29/17 at 05:30 Guaifenesin/ Codeine Phosphate (Robitussin Ac Liquid Cup) 10 ml Q4H PRN PO COUGH Last administered on 02/01/17 01:26; Admin Dose 10 ML; Start 01/29/17 at 05:30 Atorvastatin Calcium (Lipitor) 10 mg HS PO Last administered on 02/02/17 21:22 ; Admin Dose 10 MG; Start 01/29/17 at 21:00 Pantoprazole (Protonix Tab) 40 mg DAILY@06 PO Last administered on 02/02/17 06 :27; Admin Dose 40 MG; Start 01/29/17 at 16:00 Epoetin Larry (Epogen (Non Esrd/Non Oncology)) 3,000 units MoWeFr@17 SC Last administered on 01/31/17 17:28; Admin Dose 3,000 UNITS; Start 01/31/17 at 17:00 Metoprolol Tartrate (Lopressor) 50 mg BID PO Last administered on 02/02/17 09: 02; Admin Dose 50 MG; Start 01/30/17 at 21:00 Aspirin (Ecotrin) 325 mg DAILY PO Last administered on 02/02/17 09:02; Admin Dose 325 MG; Start 01/31/17 at 09:00 Diltiazem HCl (Cardizem Iv) 5 mg Q4 PRN IV HR>110 Hold SBP<100; Start 01/30/17 at 20:30 Furosemide (Lasix) 20 mg DAILY@06 IV Last administered on 02/02/17 06:27; Admin Dose 20 MG; Start 01/31/17 at 12:30 IV Flush (NS 10 ml) 10 ml PRN PRN IV FLUSH LINE; Start 01/31/17 at 17:30 Oxycodone/ Acetaminophen (Percocet (5/ 325)) 1 tab Q4H PRN PO PAIN Last administered on 02/02/17 14:15; Admin Dose 1 TAB; Start 02/01/17 at 07:30 Levofloxacin (Levaquin) 500 mg Q2D@06 PO Last administered on 02/02/17 06:27; Admin Dose 500 MG; Start 02/02/17 at 06:00 Methylprednisolone Sodium Succinate 20 mg 20 mg Q12 IV Last administered on 21:22; Admin Dose 20 MG; Start 02/02/17 at 09:00 Piperacillin Sod/ Tazobactam Sod (Zosyn 2.25gm/ 50ml (Pmx)) 50 ml @ 100 mls/hr Q8 IVPB Last administered on 02/02/17 21:22; Admin Dose 100 MLS/HR; Start 10/10 at 22:00 Nitroglycerin (Nitroglycerin (Sl Tab) 0.4 Mg) 1 tab Q5M PRN SL ANGINA; Start at 14:30 Al Hydrox/Mg Hydrox/Simethicone (Mag-Al Plus) 30 ml Q6H PRN PO GASTROINTESTINAL UPSET; Start 02/02/17 at 14:30 Ondansetron HCl (Zofran Tab) 4 mg Q6H PRN PO NAUSEA AND/OR VOMITING; Start 11/09 at 14:30 Diphenhydramine HCl (Benadryl) 50 mg Q6H PRN PO ALLERGIC REACTION; Start at 22:30 CLAUDIA MITCHELL MD Feb 02, 2017 22:43
[2017-02-02] MEDS: DIPHENHYDRAMINE 50 MG CAP PO PRN (23:04)
[2017-02-03] VITALS (14 sets, daily range): BP systolic 128–171; BP diastolic 58–88; PULSE 59–67; RESP 18–20
[2017-02-03 01:09] LABS: CK-MB 1.5 ng/ml (0.0-2.4)
[2017-02-03 01:12] LABS: TROPONIN-I 0.044 ng/ml (0.00-0.12)
[2017-02-03] MEDS: ZOLPIDEM 5 MG TAB PO PRN ×2 (02:25→22:14)
[2017-02-03] MEDS: PANTOPRAZOLE (EC) 40 MG TAB PO SCH (07:00)
[2017-02-03] MEDS: PIPER-TAZO 2.25 GM (PMX) 50 ML IVPB SCH ×3 (07:00→22:08)
[2017-02-03] MEDS: FUROSEMIDE 20 MG INJ IV SCH (07:01)
[2017-02-03 07:06] LABS: ADD SCAN DIFF NO
[2017-02-03 07:15] LABS: ABNORMAL IP MESSAGE 1; BASOPHILS % 0.2 % (0.0-2.0); EOSINOPHILS % 0.1 % (0.0-7.0); HEMATOCRIT 32.9 % (37.0-47.0); HEMOGLOBIN 10.6 g/dl (12.0-16.0); LYMPHOCYTES # 2.3 10^3/ul (0.8-2.9); LYMPHOCYTES % 14.3 % (15.0-51.0); MEAN CORPUSCULAR HEMOGLOBIN 30.5 pg (29.0-33.0); MEAN CORPUSCULAR HGB CONC 32.2 g/dl (32.0-37.0); MEAN CORPUSCULAR VOLUME 94.5 fl (82.0-101.0); MEAN PLATELET VOLUME 9.6 fl (7.4-10.4); MONOCYTE # 1.9 10^3/ul (0.3-0.9); MONOCYTES % 11.8 % (0.0-11.0); NEUTROPHIL # 11.1 10^3/ul (1.6-7.5); NEUTROPHILS % 68.9 % (39.0-77.0); NUCLEATED RED BLOOD CELLS # 0.5 10^3/ul (0.0-0.0); NUCLEATED RED BLOOD CELLS% 3.1 /100WBC (0.0-0.0); PLATELET COUNT 436 10^3/UL (140-415); RED BLOOD COUNT 3.48 10^6/ul (4.20-5.40); RED CELL DISTRIBUTION WIDTH 15.7 % (11.5-14.5); WHITE BLOOD COUNT 16.1 10^3/ul (4.8-10.8)
[2017-02-03 07:42] LABS: CREATININE 2.46 mg/dl (0.44-1.00)
[2017-02-03 07:43] LABS: CALCIUM 9.1 mg/dl (8.4-10.2)
[2017-02-03] MEDS: ASPIRIN (EC) 325 MG TAB PO SCH (09:37)
[2017-02-03] MEDS: METOPROLOL 50 MG TAB PO SCH ×2 (09:37→21:00)
[2017-02-03] MEDS: METHYLPREDNISOLONE 40 MG INJ IV SCH ×2 (09:43→20:37)
[2017-02-03] MEDS: ALBUTEROL/IPRATROPIUM (NEB) 3 ML AMP HHN SCH ×3 (09:48→20:00)
--- NOTE | 2017-02-03 15:08 | CONS ---
Date/Time of Note Date/Time of Note DATE: 02/03/17 TIME: 15:05 Assessment/Plan Assessment/Plan Chief Complaint/Hosp Course IMPRESSION: 1. Atrial fibrillation, not currently on systemic anticoagulation but on asa, rate controlled 2. Shortness of breath, assess for congestive heart failure. 3. Diastolic dysfunction by 2D echo this admission.-CHF by cxr 02/01 4. Hypertension. 5. Possible chronic obstructive pulmonary disease. 6. Possible bronchitis. 7. Possible pneumonia. 8. Dyslipidemia. 9. Chronic kidney disease. 10. Anemia. 11. Leukocytosis 12. Chest pain-improved/negative troponin x 2/NO changes on ECG Recc: -Tele -serial ecg;'s -gentle lasix diuresis following nut culler/volume status closely-? need for HD -Continue asa/BB/statin -start staning nitrates to improve BP control and for cp -Continue steroids/bronchodilators/abx's -Contnue SQ heparin -Follow for recurrent AF Problems: Consultation Date/Type/Reason Admit Date/Time Jan 31, 2017 at 15:05 Initial Consult Date 01/30/2017 Type of Consultation: Cardiology Reason for Consultation AF Referring Provider: LOREN ROSE MD Exam/Review of Systems Vital Signs Vitals Vital Signs Date Time Temp Pulse Resp B/P Pulse Ox O2 Delivery O2 Flow Rate FiO2 02/03/17 13:52 56 18 97 21 02/03/17 11:59 98.2 165/75 02/03/17 05:45 Room Air 02/02/17 21:27 2.0 Intake and Output 02/02/17 02/02/17 02/03/17 15:00 23:00 07:00 Intake Total 400 ml 800 ml Output Total 200 ml 400 ml Balance 200 ml 400 ml Exam Review of Systems: CONSTITUTIONAL: No fevers, chills. PULMONARY: No sob CARDIOVASCULAR: No chest pain/palpitations GASTROINTESTINAL: No nausea/vomiting. GENITOURINARY: No hematuria/dysuria. MUSCULOSKELETAL: No myagias/arthalgias. PSYCHIATRIC: The patient denies depression. NEUROLOGIC: No weakness Constitutional: alert, oriented Psych: no complaints ENMT: mucosa pink and moist Neck: jvd, supple Respiratory: diminished breath sounds Cardiovascular: regular rate and rhythm Gastrointestinal: non-tender, soft Musculoskeletal: muscle tone (normal) Extremities: edema (none) 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: lethargic Results Result Diagram: 3/13/17 0617 02/03/17 0614 Results 24 hrs Laboratory Tests Test 02/02/17 18:10 02/03/17 00:39 02/03/17 06:14 02/03/17 06:17 Creatine Kinase 60 36 Creatine Kinase Index 2.6 4.2 Creatinine Kinase MB (Mass) 1.57 1.50 Troponin I 0.017 0.044 Anion Gap 21 H Blood Urea Nitrogen 72 H Calcium Level 9.1 Carbon Dioxide Level 20 L Chloride Level 111 H Creatinine 2.46 H Glucose Level 112 # Potassium Level 4.0 Sodium Level 148 H Basophils # 0.0 Basophils % 0.2 Eosinophils # 0.0 Eosinophils % 0.1 Hematocrit 32.9 #L Hemoglobin 10.6 #L Lymphocytes # 2.3 Lymphocytes % 14.3 L Mean Corpuscular Hemoglobin 30.5 Mean Corpuscular Hemoglobin Concent 32.2 Mean Corpuscular Volume 94.5 Mean Platelet Volume 9.6 Monocytes # 1.9 H Monocytes % 11.8 H Neutrophils # 11.1 H Neutrophils % 68.9 Nucleated Red Blood Cells # 0.5 H Nucleated Red Blood Cells % 3.1 H Platelet Count 436 #H Red Blood Count 3.48 #L Red Cell Distribution Width 15.7 H White Blood Count 16.1 #H Medications Medications Current Medications Acetaminophen (Tylenol Tab) 650 mg Q4H PRN PO PAIN AND OR ELEVATED TEMP Last administered on 01/29/17 18:54; Admin Dose 650 MG; Start 01/29/17 at 05:30 Guaifenesin/ Codeine Phosphate (Robitussin Ac Liquid Cup) 10 ml Q4H PRN PO COUGH Last administered on 02/01/17 01:26; Admin Dose 10 ML; Start 01/29/17 at 05:30 Atorvastatin Calcium (Lipitor) 10 mg HS PO Last administered on 02/02/17 21:22 ; Admin Dose 10 MG; Start 01/29/17 at 21:00 Pantoprazole (Protonix Tab) 40 mg DAILY@06 PO Last administered on 02/03/17 07 :00; Admin Dose 40 MG; Start 01/29/17 at 16:00 Epoetin Larry (Epogen (Non Esrd/Non Oncology)) 3,000 units MoWeFr@17 SC Last administered on 01/31/17 17:28; Admin Dose 3,000 UNITS; Start 01/31/17 at 17:00 Metoprolol Tartrate (Lopressor) 50 mg BID PO Last administered on 02/03/17 09: 37; Admin Dose 50 MG; Start 01/30/17 at 21:00 Aspirin (Ecotrin) 325 mg DAILY PO Last administered on 02/03/17 09:37; Admin Dose 325 MG; Start 01/31/17 at 09:00 Diltiazem HCl (Cardizem Iv) 5 mg Q4 PRN IV HR>110 Hold SBP<100; Start 01/30/17 at 20:30 Furosemide (Lasix) 20 mg DAILY@06 IV Last administered on 02/03/17 07:01; Admin Dose 20 MG; Start 01/31/17 at 12:30 IV Flush (NS 10 ml) 10 ml PRN PRN IV FLUSH LINE; Start 01/31/17 at 17:30 Oxycodone/ Acetaminophen (Percocet (5/ 325)) 1 tab Q4H PRN PO PAIN Last administered on 02/02/17 14:15; Admin Dose 1 TAB; Start 02/01/17 at 07:30 Levofloxacin (Levaquin) 500 mg Q2D@06 PO Last administered on 02/02/17 06:27; Admin Dose 500 MG; Start 02/02/17 at 06:00 Methylprednisolone Sodium Succinate 20 mg 20 mg Q12 IV Last administered on 09:43; Admin Dose 20 MG; Start 02/02/17 at 09:00 Piperacillin Sod/ Tazobactam Sod (Zosyn 2.25gm/ 50ml (Pmx)) 50 ml @ 100 mls/hr Q8 IVPB Last administered on 02/03/17 14:11; Admin Dose 100 MLS/HR; Start 10/10 at 22:00 Nitroglycerin (Nitroglycerin (Sl Tab) 0.4 Mg) 1 tab Q5M PRN SL ANGINA; Start at 14:30 Al Hydrox/Mg Hydrox/Simethicone (Mag-Al Plus) 30 ml Q6H PRN PO GASTROINTESTINAL UPSET; Start 02/02/17 at 14:30 Ondansetron HCl (Zofran Tab) 4 mg Q6H PRN PO NAUSEA AND/OR VOMITING; Start 11/09 at 14:30 Diphenhydramine HCl (Benadryl) 50 mg Q6H PRN PO ALLERGIC REACTION Last administered on 02/02/17t 23:04; Admin Dose 50 MG; Start 02/02/17 at 22:30 ALVINA GARCIA Feb 03, 2017 15:08
[2017-02-03] MEDS ORDERED: AL HYDROX/MG HYDROX/SIMETH 30 ML CUP PO PRN (15:30)
[2017-02-03] MEDS: ISOSORBIDE DINITRATE 10 MG TAB PO SCH ×2 (16:12→20:38)
[2017-02-03] MEDS ORDERED: EPOETIN 2000 UNITS/ML INJ (NON ESRD/NON ONCOLOGY) SC SCH (17:00)
[2017-02-03] MEDS: EPOETIN 3000 UNITS/ML (NON ESRD/NON ONCOLOGY) SC SCH (18:05)
[2017-02-03] MEDS: CALCIUM CARBONATE 500 MG CHEW TAB PO SCH (19:02)
--- NOTE | 2017-02-03 19:02 | PN ---
Date/Time of Note Date/Time of Note DATE: 02/03/17 TIME: 18:58 Assessment/Plan VTE Prophylaxis VTE Prophylaxis Intervention: SCD's Lines/Catheters [facility] PICC Line Central line still needed: Yes Urinary Cath still in place: No Assessment/Plan Chief Complaint/Hosp Course ASSESSMENT AND PLAN: - Possible bronchitis versus early pneumonia. Continue Levaquin, continue breathing treatments. - Ecoli urinary tract infection. Continue Levaquin. - Diastolic dysfunction congestive heart failure. Dr. Iraheta is following and cardiology consultation, continue gentle diuresis. - Atrial fibrillation at controlled rate. Continue aspirin and metoprolol. - Hypertension. Continue metoprolol and benazepril. - Aortic stenosis. - Hyperlipidemia. Continue statin. - Possible chronic obstructive pulmonary disease exacerbation. Continue patient on breathing treatments, start the patient on steroids. Continue supplemental oxygen. - Stage IV chronic kidney disease. Kidney ultrasound is consistent with chronic kidney disease. Dr. Gordon is following in nephrology consultation. - Gout. Continue allopurinol. - Anemia of chronic disease, started on Epogen. Continue Lovenox for deep venous thrombosis prophylaxis and Protonix for peptic ulcer disease prophylaxis. Further recommendations based on clinical course. Plan of care discussed with Dr. Olivier. Problems: Subjective 24 Hr Interval Summary Free Text/Dictation Patient stated that she feels better, denies any shortness of breath, only complains of shortness of breath with exertion, denies chest pain, heart rate is well controlled, patient's continues to have episodes of elevated blood pressure. Exam/Review of Systems Vital Signs Vitals Vital Signs Date Time Temp Pulse Resp B/P Pulse Ox O2 Delivery O2 Flow Rate FiO2 02/03/17 16:43 62 02/03/17 16:00 98.0 171/88 95 Room Air 2.0 02/03/17 13:52 18 21 Intake and Output 02/02/17 02/02/17 02/03/17 15:00 23:00 07:00 Intake Total 400 ml 800 ml Output Total 200 ml 400 ml Balance 200 ml 400 ml Exam Constitutional: alert, oriented Psych: no complaints Head: atraumatic, normocephalic Eyes: nl conjunctiva Neck: non-tender, supple Respiratory: other (Diminished at the bases) Cardiovascular: other (Irregularly irregular rhythm) Gastrointestinal: non-tender, soft Musculoskeletal: nl extremities to inspection, nl gait and stance Extremities: normal pulses 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 Results Result Diagram: 02/03/1717 02/03/17 0614 Results 24 hrs Laboratory Tests Test 02/03/17 00:39 02/03/17 06:14 02/03/17 06:17 Creatine Kinase 36 Creatine Kinase Index 4.2 Creatinine Kinase MB (Mass) 1.50 Troponin I 0.044 Anion Gap 21 H Blood Urea Nitrogen 72 H Calcium Level 9.1 Carbon Dioxide Level 20 L Chloride Level 111 H Creatinine 2.46 H Glucose Level 112 # Potassium Level 4.0 Sodium Level 148 H Basophils # 0.0 Basophils % 0.2 Eosinophils # 0.0 Eosinophils % 0.1 Hematocrit 32.9 #L Hemoglobin 10.6 #L Lymphocytes # 2.3 Lymphocytes % 14.3 L Mean Corpuscular Hemoglobin 30.5 Mean Corpuscular Hemoglobin Concent 32.2 Mean Corpuscular Volume 94.5 Mean Platelet Volume 9.6 Monocytes # 1.9 H Monocytes % 11.8 H Neutrophils # 11.1 H Neutrophils % 68.9 Nucleated Red Blood Cells # 0.5 H Nucleated Red Blood Cells % 3.1 H Platelet Count 436 #H Red Blood Count 3.48 #L Red Cell Distribution Width 15.7 H White Blood Count 16.1 #H Medications Medications Current Medications Acetaminophen (Tylenol Tab) 650 mg Q4H PRN PO PAIN AND OR ELEVATED TEMP Last administered on 01/29/17 18:54; Admin Dose 650 MG; Start 01/29/17 at 05:30 Guaifenesin/ Codeine Phosphate (Robitussin Ac Liquid Cup) 10 ml Q4H PRN PO COUGH Last administered on 02/01/17 01:26; Admin Dose 10 ML; Start 01/29/17 at 05:30 Atorvastatin Calcium (Lipitor) 10 mg HS PO Last administered on 02/02/17 21:22 ; Admin Dose 10 MG; Start 01/29/17 at 21:00 Pantoprazole (Protonix Tab) 40 mg DAILY@06 PO Last administered on 02/03/17 07 :00; Admin Dose 40 MG; Start 01/29/17 at 16:00 Epoetin Larry (Epogen (Non Esrd/Non Oncology)) 3,000 units MoWeFr@17 SC Last administered on 02/03/17 18:05; Admin Dose 3,000 UNITS; Start 01/31/17 at 17:00 Metoprolol Tartrate (Lopressor) 50 mg BID PO Last administered on 02/03/17 09: 37; Admin Dose 50 MG; Start 01/30/17 at 21:00 Aspirin (Ecotrin) 325 mg DAILY PO Last administered on 02/03/17 09:37; Admin Dose 325 MG; Start 01/31/17 at 09:00 Diltiazem HCl (Cardizem Iv) 5 mg Q4 PRN IV HR>110 Hold SBP<100; Start 01/30/17 at 20:30 Furosemide (Lasix) 20 mg DAILY@06 IV Last administered on 02/03/17 07:01; Admin Dose 20 MG; Start 01/31/17 at 12:30 IV Flush (NS 10 ml) 10 ml PRN PRN IV FLUSH LINE; Start 01/31/17 at 17:30 Oxycodone/ Acetaminophen (Percocet (5/ 325)) 1 tab Q4H PRN PO PAIN Last administered on 02/02/17 14:15; Admin Dose 1 TAB; Start 02/01/17 at 07:30 Levofloxacin (Levaquin) 500 mg Q2D@06 PO Last administered on 02/02/17 06:27; Admin Dose 500 MG; Start 02/02/17 at 06:00 Methylprednisolone Sodium Succinate 20 mg 20 mg Q12 IV Last administered on 09:43; Admin Dose 20 MG; Start 02/02/17 at 09:00 Piperacillin Sod/ Tazobactam Sod (Zosyn 2.25gm/ 50ml (Pmx)) 50 ml @ 100 mls/hr Q8 IVPB Last administered on 02/03/17 14:11; Admin Dose 100 MLS/HR; Start 10/10 at 22:00 Nitroglycerin (Nitroglycerin (Sl Tab) 0.4 Mg) 1 tab Q5M PRN SL ANGINA; Start at 14:30 Ondansetron HCl (Zofran Tab) 4 mg Q6H PRN PO NAUSEA AND/OR VOMITING; Start 11/09 at 14:30 Diphenhydramine HCl (Benadryl) 50 mg Q6H PRN PO ALLERGIC REACTION Last administered on 02/02/17 23:04; Admin Dose 50 MG; Start 02/02/17 at 22:30 Isosorbide Dinitrate (Isordil) 10 mg TID PO Last administered on 02/03/17 16: 12; Admin Dose 10 MG; Start 02/03/17 at 15:30 Al Hydrox/Mg Hydrox/Simethicone (Mag-Al Plus) 30 ml Q6H PRN PO GASTROINTESTINAL UPSET; Start 02/03/17 at 15:30 Benazepril HCl (Lotensin) 20 mg BID PO ; Start 02/03/17 at 21:00 EDWAR VARGAS Feb 03, 2017 19:02
[2017-02-03] MEDS: ATORVASTATIN 10 MG TAB PO SCH (20:38)
[2017-02-03] MEDS: BENAZEPRIL 20 MG TAB PO SCH (20:38)
[2017-02-03] MEDS: OXYCODONE/ACETAMINOPHEN (5/325) TAB PO PRN (22:39)
--- NOTE | 2017-02-03 23:09 | CONS ---
Date/Time of Note Date/Time of Note DATE: 02/03/17 TIME: 23:09 Assessment/Plan Assessment/Plan Chief Complaint/Hosp Course multiple problems MARIANO improving Pt prb has ckd4, will get 24 hr studies Anemiaa, increase epo note Iron Sat is ok Problems: Additional Assessment/Plan resuult creata clearance 13 ml/min in 24 hr urine study Consultation Date/Type/Reason Admit Date/Time Jan 31, 2017 at 15:05 Type of Consultation: renal Reason for Consultation CKD4 Referring Provider: LOREN ROSE MD 24 HR Interval Summary Free Text/Dictation Pt c/o lbp, anxiety & insomnia Exam/Review of Systems Vital Signs Vitals Vital Signs Date Time Temp Pulse Resp B/P Pulse Ox O2 Delivery O2 Flow Rate FiO2 02/03/17 20:39 61 02/03/17 20:00 Nasal Cannula 2.0 02/03/17 19:51 98.4 18 147/65 96 02/03/17 13:52 21 Intake and Output 02/02/17 02/02/17 02/03/17 15:00 23:00 07:00 Intake Total 400 ml 800 ml Output Total 200 ml 400 ml Balance 200 ml 400 ml Exam No resp distress tho pt says she can not get around much Constitutional: alert, oriented, well developed Psych: nl mood/affect, no complaints Head: atraumatic, normocephalic Eyes: EOMI, PERRL, nl conjunctiva, nl lids, nl sclera ENMT: nl external ears & nose, nl lips & teeth, nl nasal mucosa & septum Neck: non-tender, supple Respiratory: clear to auscultation, normal air movement Cardiovascular: nl pulses, regular rate and rhythm Gastrointestinal: distended, nl liver, spleen, non-tender, soft Musculoskeletal: nl extremities to inspection, nl gait and stance, other ( stiff neck) Extremities: normal pulses 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-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, confused, nl mental status, nl speech, nl strength Skin: nl turgor, No rash or lesions Lymph: nl lymph nodes Results Result Diagram: 02/03/1717 02/03/1714 Results 24 hrs Laboratory Tests Test 02/03/17 00:39 02/03/17 06:14 02/03/17 06:17 Creatine Kinase 36 Creatine Kinase Index 4.2 Creatinine Kinase MB (Mass) 1.50 Troponin I 0.044 Anion Gap 21 H Blood Urea Nitrogen 72 H Calcium Level 9.1 Carbon Dioxide Level 20 L Chloride Level 111 H Creatinine 2.46 H Glucose Level 112 # Potassium Level 4.0 Sodium Level 148 H Basophils # 0.0 Basophils % 0.2 Eosinophils # 0.0 Eosinophils % 0.1 Hematocrit 32.9 #L Hemoglobin 10.6 #L Lymphocytes # 2.3 Lymphocytes % 14.3 L Mean Corpuscular Hemoglobin 30.5 Mean Corpuscular Hemoglobin Concent 32.2 Mean Corpuscular Volume 94.5 Mean Platelet Volume 9.6 Monocytes # 1.9 H Monocytes % 11.8 H Neutrophils # 11.1 H Neutrophils % 68.9 Nucleated Red Blood Cells # 0.5 H Nucleated Red Blood Cells % 3.1 H Platelet Count 436 #H Red Blood Count 3.48 #L Red Cell Distribution Width 15.7 H White Blood Count 16.1 #H Medications Medications Current Medications Acetaminophen (Tylenol Tab) 650 mg Q4H PRN PO PAIN AND OR ELEVATED TEMP Last administered on 01/29/17 18:54; Admin Dose 650 MG; Start 01/29/17 at 05:30 Guaifenesin/ Codeine Phosphate (Robitussin Ac Liquid Cup) 10 ml Q4H PRN PO COUGH Last administered on 02/01/17 01:26; Admin Dose 10 ML; Start 01/29/17 at 05:30 Atorvastatin Calcium (Lipitor) 10 mg HS PO Last administered on 02/03/17 20:38 ; Admin Dose 10 MG; Start 01/29/17 at 21:00 Pantoprazole (Protonix Tab) 40 mg DAILY@06 PO Last administered on 02/03/17 07 :00; Admin Dose 40 MG; Start 01/29/17 at 16:00 Epoetin Larry (Epogen (Non Esrd/Non Oncology)) 3,000 units MoWeFr@17 SC Last administered on 02/03/17 18:05; Admin Dose 3,000 UNITS; Start 01/31/17 at 17:00 Metoprolol Tartrate (Lopressor) 50 mg BID PO Last administered on 02/03/17 09: 37; Admin Dose 50 MG; Start 01/30/17 at 21:00 Aspirin (Ecotrin) 325 mg DAILY PO Last administered on 02/03/17 09:37; Admin Dose 325 MG; Start 01/31/17 at 09:00 Diltiazem HCl (Cardizem Iv) 5 mg Q4 PRN IV HR>110 Hold SBP<100; Start 01/30/17 at 20:30 Furosemide (Lasix) 20 mg DAILY@06 IV Last administered on 02/03/17 07:01; Admin Dose 20 MG; Start 01/31/17 at 12:30 IV Flush (NS 10 ml) 10 ml PRN PRN IV FLUSH LINE; Start 01/31/17 at 17:30 Oxycodone/ Acetaminophen (Percocet (5/ 325)) 1 tab Q4H PRN PO PAIN Last administered on 02/03/17 22:39; Admin Dose 1 TAB; Start 02/01/17 at 07:30 Levofloxacin (Levaquin) 500 mg Q2D@06 PO Last administered on 02/02/17 06:27; Admin Dose 500 MG; Start 02/02/17 at 06:00 Methylprednisolone Sodium Succinate 20 mg 20 mg Q12 IV Last administered on 20:37; Admin Dose 20 MG; Start 02/02/17 at 09:00 Piperacillin Sod/ Tazobactam Sod (Zosyn 2.25gm/ 50ml (Pmx)) 50 ml @ 100 mls/hr Q8 IVPB Last administered on 02/03/17 22:08; Admin Dose 100 MLS/HR; Start 10/10 at 22:00 Nitroglycerin (Nitroglycerin (Sl Tab) 0.4 Mg) 1 tab Q5M PRN SL ANGINA; Start at 14:30 Ondansetron HCl (Zofran Tab) 4 mg Q6H PRN PO NAUSEA AND/OR VOMITING; Start 11/09 at 14:30 Diphenhydramine HCl (Benadryl) 50 mg Q6H PRN PO ALLERGIC REACTION Last administered on 02/02/17 23:04; Admin Dose 50 MG; Start 02/02/17 at 22:30 Isosorbide Dinitrate (Isordil) 10 mg TID PO Last administered on 02/03/17 20: 38; Admin Dose 10 MG; Start 02/03/17 at 15:30 Al Hydrox/Mg Hydrox/Simethicone (Mag-Al Plus) 30 ml Q6H PRN PO GASTROINTESTINAL UPSET; Start 02/03/17 at 15:30 Benazepril HCl (Lotensin) 20 mg BID PO Last administered on 02/03/17t 20:38; Admin Dose 20 MG; Start 02/03/17 at 21:00 CLAUDIA MITCHELL MD Feb 03, 2017 23:09
[2017-02-04] VITALS (17 sets, daily range): BP systolic 130–147; BP diastolic 60–69; PULSE 35–148; RESP 18–20
[2017-02-04] MEDS: FUROSEMIDE 20 MG INJ IV SCH (05:31)
[2017-02-04] MEDS: PANTOPRAZOLE (EC) 40 MG TAB PO SCH (05:31)
[2017-02-04] MEDS: LEVOFLOXACIN 500 MG TAB PO SCH (05:31)
[2017-02-04] MEDS: PIPER-TAZO 2.25 GM (PMX) 50 ML IVPB SCH ×3 (05:31→22:18)
[2017-02-04 06:13] LABS: ADD SCAN DIFF NO
[2017-02-04 06:31] LABS: BASOPHILS % 0.1 % (0.0-2.0); EOSINOPHILS % 0.1 % (0.0-7.0); HEMATOCRIT 31.3 % (37.0-47.0); LYMPHOCYTES # 1.5 10^3/ul (0.8-2.9); LYMPHOCYTES % 10.8 % (15.0-51.0); MEAN CORPUSCULAR HEMOGLOBIN 30.4 pg (29.0-33.0); MEAN CORPUSCULAR HGB CONC 31.9 g/dl (32.0-37.0); MEAN CORPUSCULAR VOLUME 95.1 fl (82.0-101.0); MEAN PLATELET VOLUME 9.4 fl (7.4-10.4); MONOCYTE # 0.9 10^3/ul (0.3-0.9); MONOCYTES % 6.4 % (0.0-11.0); NEUTROPHIL # 11.3 10^3/ul (1.6-7.5); NEUTROPHILS % 80.2 % (39.0-77.0); NUCLEATED RED BLOOD CELLS # 0.1 10^3/ul (0.0-0.0); PLATELET COUNT 414 10^3/UL (140-415); RED BLOOD COUNT 3.29 10^6/ul (4.20-5.40); RED CELL DISTRIBUTION WIDTH 15.9 % (11.5-14.5)
[2017-02-04 06:32] LABS: POTASSIUM 4.5 mmol/L (3.5-5.1)
[2017-02-04 06:35] LABS: CREATININE 2.31 mg/dl (0.44-1.00)
[2017-02-04 06:36] LABS: CALCIUM 8.7 mg/dl (8.4-10.2)
[2017-02-04] MEDS: CALCIUM CARBONATE 500 MG CHEW TAB PO SCH ×3 (08:09→18:34)
[2017-02-04] MEDS: METHYLPREDNISOLONE 40 MG INJ IV SCH ×2 (08:10→22:14)
[2017-02-04] MEDS: METOPROLOL 50 MG TAB PO SCH ×2 (08:11→22:17)
[2017-02-04] MEDS: BENAZEPRIL 20 MG TAB PO SCH ×2 (08:11→22:16)
[2017-02-04] MEDS: ASPIRIN (EC) 325 MG TAB PO SCH (08:11)
[2017-02-04] MEDS: ISOSORBIDE DINITRATE 10 MG TAB PO SCH ×3 (08:12→22:17)
[2017-02-04] MEDS: ALBUTEROL/IPRATROPIUM (NEB) 3 ML AMP HHN SCH ×3 (08:43→20:44)
--- NOTE | 2017-02-04 09:51 | CONS ---
Date/Time of Note Date/Time of Note DATE: 02/04/17 TIME: 09:49 Assessment/Plan Assessment/Plan Additional Assessment/Plan 1. Atrial fibrillation, not currently on systemic anticoagulation but on asa, rate controlled - NOW IN SINUS with PACs - will monitor for now. 2. Shortness of breath, assess for congestive heart failure- better, con't gentle diuresis 3. Diastolic dysfunction by 2D echo this admission.-CHF by cxr 02/01 - con't to optimize fluid status 4. Hypertension - well RX, con't Med rx 5. Possible chronic obstructive pulmonary disease- no wheezing now 6. Possible bronchitis. 7. Possible pneumonia- on anti-bx 8. Dyslipidemia. 9. Chronic kidney disease- renal team follows 10. Anemia. 11. Leukocytosis 12. Chest pain-improved/negative troponin x 2/NO changes on ECG - r/o [place] Consultation Date/Type/Reason Admit Date/Time Jan 31, 2017 at 15:05 Initial Consult Date Type of Consultation: renal Referring Provider: LOREN ROSE MD 24 HR Interval Summary Free Text/Dictation No acute events - converted to sinus - better now ROS: No fever, no chills, no nausea, no vomiting, no diarrhea/constipation No recent weight changes No chest pain, no PND, no orthopnea No dizziness, blurred vision No thirst, no heat or cold intolerance Exam/Review of Systems Vital Signs Vitals Vital Signs Date Time Temp Pulse Resp B/P Pulse Ox O2 Delivery O2 Flow Rate FiO2 02/04/17 08:45 73 18 96 21 02/04/17 07:54 98.0 139/67 02/03/17 20:00 Nasal Cannula 2.0 Intake and Output 02/03/17 02/03/17 02/04/17 15:00 23:00 07:00 Intake Total 450 ml 700 ml 120 ml Output Total 200 ml 375 ml 300 ml Balance 250 ml 325 ml -180 ml Exam General: WN/WD/NAD, AOx 2-3 HEENT: Unicetric/atraumatic/EOMI (follow commands) NECK: JVD elevated, no thyromegaly Lymph: no lymphadenopathy HEART: regular with no S3, II/ systolic murmur at apex LUNGS: Coarse sounds ABD: soft, NT, ND, +BS : Intact Neuro: non focal SKIN: chronic changes EXT: trace edema Results Result Diagram: 02/04/17 0545 02/04/17 0545 Results 24 hrs Laboratory Tests Test 02/04/17 05:45 Anion Gap 19 H Basophils # 0.0 Basophils % 0.1 Blood Urea Nitrogen 67 H Calcium Level 8.7 Carbon Dioxide Level 22 Chloride Level 108 Creatinine 2.31 H Eosinophils # 0.0 Eosinophils % 0.1 Glucose Level 130 Hematocrit 31.3 L Hemoglobin 10.0 L Lymphocytes # 1.5 Lymphocytes % 10.8 L Mean Corpuscular Hemoglobin 30.4 Mean Corpuscular Hemoglobin Concent 31.9 L Mean Corpuscular Volume 95.1 Mean Platelet Volume 9.4 Monocytes # 0.9 Monocytes % 6.4 Neutrophils # 11.3 H Neutrophils % 80.2 H Nucleated Red Blood Cells # 0.1 H Nucleated Red Blood Cells % 1.0 H Platelet Count 414 Potassium Level 4.5 Red Blood Count 3.29 L Red Cell Distribution Width 15.9 H Sodium Level 144 White Blood Count 14.0 H Medications Medications Current Medications Acetaminophen (Tylenol Tab) 650 mg Q4H PRN PO PAIN AND OR ELEVATED TEMP Last administered on 01/29/17 18:54; Admin Dose 650 MG; Start 01/29/17 at 05:30 Guaifenesin/ Codeine Phosphate (Robitussin Ac Liquid Cup) 10 ml Q4H PRN PO COUGH Last administered on 02/01/17 01:26; Admin Dose 10 ML; Start 01/29/17 at 05:30 Atorvastatin Calcium (Lipitor) 10 mg HS PO Last administered on 02/03/17 20:38 ; Admin Dose 10 MG; Start 01/29/17 at 21:00 Pantoprazole (Protonix Tab) 40 mg DAILY@06 PO Last administered on 02/04/17 05 :31; Admin Dose 40 MG; Start 01/29/17 at 16:00 Epoetin Larry (Epogen (Non Esrd/Non Oncology)) 3,000 units MoWeFr@17 SC Last administered on 02/03/17 18:05; Admin Dose 3,000 UNITS; Start 01/31/17 at 17:00 Metoprolol Tartrate (Lopressor) 50 mg BID PO Last administered on 02/04/17 08: 11; Admin Dose 50 MG; Start 01/30/17 at 21:00 Aspirin (Ecotrin) 325 mg DAILY PO Last administered on 02/04/17 08:11; Admin Dose 325 MG; Start 01/31/17 at 09:00 Diltiazem HCl (Cardizem Iv) 5 mg Q4 PRN IV HR>110 Hold SBP<100; Start 01/30/17 at 20:30 Furosemide (Lasix) 20 mg DAILY@06 IV Last administered on 02/04/17 05:31; Admin Dose 20 MG; Start 01/31/17 at 12:30 IV Flush (NS 10 ml) 10 ml PRN PRN IV FLUSH LINE; Start 01/31/17 at 17:30 Oxycodone/ Acetaminophen (Percocet (5/ 325)) 1 tab Q4H PRN PO PAIN Last administered on 02/03/17 22:39; Admin Dose 1 TAB; Start 02/01/17 at 07:30 Levofloxacin (Levaquin) 500 mg Q2D@06 PO Last administered on 02/04/17 05:31; Admin Dose 500 MG; Start 02/02/17 at 06:00 Methylprednisolone Sodium Succinate 20 mg 20 mg Q12 IV Last administered on 08:10; Admin Dose 20 MG; Start 02/02/17 at 09:00 Piperacillin Sod/ Tazobactam Sod (Zosyn 2.25gm/ 50ml (Pmx)) 50 ml @ 100 mls/hr Q8 IVPB Last administered on 02/04/17 05:31; Admin Dose 100 MLS/HR; Start 10/10 at 22:00 Nitroglycerin (Nitroglycerin (Sl Tab) 0.4 Mg) 1 tab Q5M PRN SL ANGINA; Start at 14:30 Ondansetron HCl (Zofran Tab) 4 mg Q6H PRN PO NAUSEA AND/OR VOMITING; Start 11/09 at 14:30 Diphenhydramine HCl (Benadryl) 50 mg Q6H PRN PO ALLERGIC REACTION Last administered on 02/02/17 23:04; Admin Dose 50 MG; Start 02/02/17 at 22:30 Isosorbide Dinitrate (Isordil) 10 mg TID PO Last administered on 02/04/17 08: 12; Admin Dose 10 MG; Start 02/03/17 at 15:30 Al Hydrox/Mg Hydrox/Simethicone (Mag-Al Plus) 30 ml Q6H PRN PO GASTROINTESTINAL UPSET; Start 02/03/17 at 15:30 Benazepril HCl (Lotensin) 20 mg BID PO Last administered on 02/04/17 08:11; Admin Dose 20 MG; Start 02/03/17 at 21:00 MICHELLE COLEMAN MD Feb 04, 2017 09:51
--- NOTE | 2017-02-04 17:18 | PN ---
Date/Time of Note Date/Time of Note DATE: 02/04/17 TIME: 17:16 Assessment/Plan VTE Prophylaxis VTE Prophylaxis Intervention: SCD's Lines/Catheters [facility] ([facility] PICC Line Central line still needed: Yes Urinary Cath still in place: No Assessment/Plan Chief Complaint/Hosp Course ASSESSMENT AND PLAN: - Possible bronchitis versus early pneumonia. Continue Levaquin, continue breathing treatments. - Ecoli urinary tract infection. Continue Levaquin. - Diastolic dysfunction congestive heart failure. Dr. Iraheta is following and cardiology consultation, continue gentle diuresis. - Atrial fibrillation at controlled rate. Continue aspirin and metoprolol. - Hypertension. Continue metoprolol and benazepril. - Aortic stenosis. - Hyperlipidemia. Continue statin. - Possible chronic obstructive pulmonary disease exacerbation. Continue patient on breathing treatments, start the patient on steroids. Continue supplemental oxygen. - Stage IV chronic kidney disease. Kidney ultrasound is consistent with chronic kidney disease. Dr. Gordon is following in nephrology consultation. - Gout. Continue allopurinol. - Anemia of chronic disease, started on Epogen. Continue Lovenox for deep venous thrombosis prophylaxis and Protonix for peptic ulcer disease prophylaxis. Further recommendations based on clinical course. Plan of care discussed with Dr. Olivier. Problems: Subjective 24 Hr Interval Summary Free Text/Dictation Patient had an episode of atrial fibrillation with rapid ventricular response and heart rate going to up to 180, currently in sinus rhythm with PACs, continue telemetry monitoring. Patient denies any chest pain, denies shortness of breath at rest. Exam/Review of Systems Vital Signs Vitals Vital Signs Date Time Temp Pulse Resp B/P Pulse Ox O2 Delivery O2 Flow Rate FiO2 02/04/17 16:00 68 02/04/17 15:02 98.2 18 139/65 98 02/04/17 13:56 21 02/04/17 08:10 Nasal Cannula 2.0 Intake and Output 02/03/17 02/03/17 02/04/17 15:00 23:00 07:00 Intake Total 450 ml 700 ml 120 ml Output Total 200 ml 375 ml 300 ml Balance 250 ml 325 ml -180 ml Exam Constitutional: alert, oriented Psych: no complaints Head: atraumatic, normocephalic Eyes: nl conjunctiva Neck: non-tender, supple Respiratory: other (Diminished at the bases) Cardiovascular: other (Irregularly irregular rhythm) Gastrointestinal: non-tender, soft Musculoskeletal: nl extremities to inspection, nl gait and stance Extremities: normal pulses 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 Results Result Diagram: 02/04/1754402/04/17544 Results 24 hrs Laboratory Tests Test 02/04/17 05:45 Anion Gap 19 H Basophils # 0.0 Basophils % 0.1 Blood Urea Nitrogen 67 H Calcium Level 8.7 Carbon Dioxide Level 22 Chloride Level 108 Creatinine 2.31 H Eosinophils # 0.0 Eosinophils % 0.1 Glucose Level 130 Hematocrit 31.3 L Hemoglobin 10.0 L Lymphocytes # 1.5 Lymphocytes % 10.8 L Mean Corpuscular Hemoglobin 30.4 Mean Corpuscular Hemoglobin Concent 31.9 L Mean Corpuscular Volume 95.1 Mean Platelet Volume 9.4 Monocytes # 0.9 Monocytes % 6.4 Neutrophils # 11.3 H Neutrophils % 80.2 H Nucleated Red Blood Cells # 0.1 H Nucleated Red Blood Cells % 1.0 H Platelet Count 414 Potassium Level 4.5 Red Blood Count 3.29 L Red Cell Distribution Width 15.9 H Sodium Level 144 White Blood Count 14.0 H Medications Medications Current Medications Acetaminophen (Tylenol Tab) 650 mg Q4H PRN PO PAIN AND OR ELEVATED TEMP Last administered on 01/29/17 18:54; Admin Dose 650 MG; Start 01/29/17 at 05:30 Guaifenesin/ Codeine Phosphate (Robitussin Ac Liquid Cup) 10 ml Q4H PRN PO COUGH Last administered on 02/01/17 01:26; Admin Dose 10 ML; Start 01/29/17 at 05:30 Atorvastatin Calcium (Lipitor) 10 mg HS PO Last administered on 02/03/17 20:38 ; Admin Dose 10 MG; Start 01/29/17 at 21:00 Pantoprazole (Protonix Tab) 40 mg DAILY@06 PO Last administered on 02/04/17 05 :31; Admin Dose 40 MG; Start 01/29/17 at 16:00 Epoetin Larry (Epogen (Non Esrd/Non Oncology)) 3,000 units MoWeFr@17 SC Last administered on 02/03/17 18:05; Admin Dose 3,000 UNITS; Start 01/31/17 at 17:00 Metoprolol Tartrate (Lopressor) 50 mg BID PO Last administered on 02/04/17 08: 11; Admin Dose 50 MG; Start 01/30/17 at 21:00 Aspirin (Ecotrin) 325 mg DAILY PO Last administered on 02/04/17 08:11; Admin Dose 325 MG; Start 01/31/17 at 09:00 Diltiazem HCl (Cardizem Iv) 5 mg Q4 PRN IV HR>110 Hold SBP<100; Start 01/30/17 at 20:30 Furosemide (Lasix) 20 mg DAILY@06 IV Last administered on 02/04/17 05:31; Admin Dose 20 MG; Start 01/31/17 at 12:30 IV Flush (NS 10 ml) 10 ml PRN PRN IV FLUSH LINE; Start 01/31/17 at 17:30 Oxycodone/ Acetaminophen (Percocet (5/ 325)) 1 tab Q4H PRN PO PAIN Last administered on 02/03/17 22:39; Admin Dose 1 TAB; Start 02/01/17 at 07:30 Levofloxacin (Levaquin) 500 mg Q2D@06 PO Last administered on 02/04/17 05:31; Admin Dose 500 MG; Start 02/02/17 at 06:00 Methylprednisolone Sodium Succinate 20 mg 20 mg Q12 IV Last administered on 08:10; Admin Dose 20 MG; Start 02/02/17 at 09:00 Piperacillin Sod/ Tazobactam Sod (Zosyn 2.25gm/ 50ml (Pmx)) 50 ml @ 100 mls/hr Q8 IVPB Last administered on 02/04/17 15:35; Admin Dose 100 MLS/HR; Start 10/10 at 22:00 Nitroglycerin (Nitroglycerin (Sl Tab) 0.4 Mg) 1 tab Q5M PRN SL ANGINA; Start at 14:30 Ondansetron HCl (Zofran Tab) 4 mg Q6H PRN PO NAUSEA AND/OR VOMITING; Start 11/09 at 14:30 Diphenhydramine HCl (Benadryl) 50 mg Q6H PRN PO ALLERGIC REACTION Last administered on 02/02/17 23:04; Admin Dose 50 MG; Start 02/02/17 at 22:30 Isosorbide Dinitrate (Isordil) 10 mg TID PO Last administered on 02/04/17 12: 55; Admin Dose 10 MG; Start 02/03/17 at 15:30 Al Hydrox/Mg Hydrox/Simethicone (Mag-Al Plus) 30 ml Q6H PRN PO GASTROINTESTINAL UPSET; Start 02/03/17 at 15:30 Benazepril HCl (Lotensin) 20 mg BID PO Last administered on 02/04/17 08:11; Admin Dose 20 MG; Start 02/03/17 at 21:00 EDWAR VARGAS Feb 04, 2017 17:18
--- NOTE | 2017-02-04 20:44 | CONS ---
Date/Time of Note Date/Time of Note DATE: 02/04/17 TIME: 20:41 Assessment/Plan Assessment/Plan Chief Complaint/Hosp Course multiple problems MARIANO improving Pt prb has ckd4, will get 24 hr studies Anemiaa, increase epo note Iron Sat is ok Problems: Additional Assessment/Plan BUN/Creat stable, 24 hr study pending Consultation Date/Type/Reason Admit Date/Time Jan 31, 2017 at 15:05 Type of Consultation: renal Referring Provider: LOREN ROSE MD 24 HR Interval Summary Free Text/Dictation Pt says she feels better Constitutional: improved Exam/Review of Systems Vital Signs Vitals Vital Signs Date Time Temp Pulse Resp B/P Pulse Ox O2 Delivery O2 Flow Rate FiO2 02/04/17 20:35 66 02/04/17 19:31 98.4 19 147/69 98 02/04/17 13:56 21 02/04/17 08:10 Nasal Cannula 2.0 Intake and Output 02/03/17 02/03/17 02/04/17 15:00 23:00 07:00 Intake Total 450 ml 700 ml 120 ml Output Total 200 ml 375 ml 300 ml Balance 250 ml 325 ml -180 ml Exam Constitutional: alert, obese, oriented, well developed Psych: nl mood/affect, no complaints Head: atraumatic, normocephalic Eyes: EOMI, PERRL, nl conjunctiva, nl lids, nl sclera ENMT: nl external ears & nose, nl lips & teeth, nl nasal mucosa & septum Neck: non-tender, supple Respiratory: clear to auscultation, normal air movement Cardiovascular: nl pulses, regular rate and rhythm Gastrointestinal: nl liver, spleen, non-tender, soft Genitourinary - Female: other (Alvarado in place) Musculoskeletal: nl extremities to inspection, nl gait and stance Extremities: normal pulses 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: CASH APPLICATIONS COORDINATOR II-XII intact, nl mental status, nl speech, nl strength Skin: nl turgor, No rash or lesions Lymph: nl lymph nodes Results Result Diagram: 02/04/17 0545 02/04/17 0545 Results 24 hrs Laboratory Tests Test 02/04/17 05:45 Anion Gap 19 H Basophils # 0.0 Basophils % 0.1 Blood Urea Nitrogen 67 H Calcium Level 8.7 Carbon Dioxide Level 22 Chloride Level 108 Creatinine 2.31 H Eosinophils # 0.0 Eosinophils % 0.1 Glucose Level 130 Hematocrit 31.3 L Hemoglobin 10.0 L Lymphocytes # 1.5 Lymphocytes % 10.8 L Mean Corpuscular Hemoglobin 30.4 Mean Corpuscular Hemoglobin Concent 31.9 L Mean Corpuscular Volume 95.1 Mean Platelet Volume 9.4 Monocytes # 0.9 Monocytes % 6.4 Neutrophils # 11.3 H Neutrophils % 80.2 H Nucleated Red Blood Cells # 0.1 H Nucleated Red Blood Cells % 1.0 H Platelet Count 414 Potassium Level 4.5 Red Blood Count 3.29 L Red Cell Distribution Width 15.9 H Sodium Level 144 White Blood Count 14.0 H Medications Medications Current Medications Acetaminophen (Tylenol Tab) 650 mg Q4H PRN PO PAIN AND OR ELEVATED TEMP Last administered on 01/29/17 18:54; Admin Dose 650 MG; Start 01/29/17 at 05:30 Guaifenesin/ Codeine Phosphate (Robitussin Ac Liquid Cup) 10 ml Q4H PRN PO COUGH Last administered on 02/01/17 01:26; Admin Dose 10 ML; Start 01/29/17 at 05:30 Atorvastatin Calcium (Lipitor) 10 mg HS PO Last administered on 02/03/17 20:38 ; Admin Dose 10 MG; Start 01/29/17 at 21:00 Pantoprazole (Protonix Tab) 40 mg DAILY@06 PO Last administered on 02/04/17 05 :31; Admin Dose 40 MG; Start 01/29/17 at 16:00 Epoetin Larry (Epogen (Non Esrd/Non Oncology)) 3,000 units MoWeFr@17 SC Last administered on 02/03/17 18:05; Admin Dose 3,000 UNITS; Start 01/31/17 at 17:00 Metoprolol Tartrate (Lopressor) 50 mg BID PO Last administered on 02/04/17 08: 11; Admin Dose 50 MG; Start 01/30/17 at 21:00 Aspirin (Ecotrin) 325 mg DAILY PO Last administered on 02/04/17 08:11; Admin Dose 325 MG; Start 01/31/17 at 09:00 Diltiazem HCl (Cardizem Iv) 5 mg Q4 PRN IV HR>110 Hold SBP<100; Start 01/30/17 at 20:30 Furosemide (Lasix) 20 mg DAILY@06 IV Last administered on 02/04/17 05:31; Admin Dose 20 MG; Start 01/31/17 at 12:30 IV Flush (NS 10 ml) 10 ml PRN PRN IV FLUSH LINE; Start 01/31/17 at 17:30 Oxycodone/ Acetaminophen (Percocet (5/ 325)) 1 tab Q4H PRN PO PAIN Last administered on 02/03/17 22:39; Admin Dose 1 TAB; Start 02/01/17 at 07:30 Levofloxacin (Levaquin) 500 mg Q2D@06 PO Last administered on 02/04/17 05:31; Admin Dose 500 MG; Start 02/02/17 at 06:00 Methylprednisolone Sodium Succinate 20 mg 20 mg Q12 IV Last administered on 08:10; Admin Dose 20 MG; Start 02/02/17 at 09:00 Piperacillin Sod/ Tazobactam Sod (Zosyn 2.25gm/ 50ml (Pmx)) 50 ml @ 100 mls/hr Q8 IVPB Last administered on 02/04/17 15:35; Admin Dose 100 MLS/HR; Start 10/10 at 22:00 Nitroglycerin (Nitroglycerin (Sl Tab) 0.4 Mg) 1 tab Q5M PRN SL ANGINA; Start at 14:30 Ondansetron HCl (Zofran Tab) 4 mg Q6H PRN PO NAUSEA AND/OR VOMITING; Start 11/09 at 14:30 Diphenhydramine HCl (Benadryl) 50 mg Q6H PRN PO ALLERGIC REACTION Last administered on 02/02/17 23:04; Admin Dose 50 MG; Start 02/02/17 at 22:30 Isosorbide Dinitrate (Isordil) 10 mg TID PO Last administered on 02/04/17 12: 55; Admin Dose 10 MG; Start 02/03/17 at 15:30 Al Hydrox/Mg Hydrox/Simethicone (Mag-Al Plus) 30 ml Q6H PRN PO GASTROINTESTINAL UPSET; Start 02/03/17 at 15:30 Benazepril HCl (Lotensin) 20 mg BID PO Last administered on 02/04/17 08:11; Admin Dose 20 MG; Start 02/03/17 at 21:00 CLAUDIA MITCHELL MD Feb 04, 2017 20:44
[2017-02-04] MEDS: ATORVASTATIN 10 MG TAB PO SCH (22:16)
[2017-02-04] MEDS: OXYCODONE/ACETAMINOPHEN (5/325) TAB PO PRN (22:17)
[2017-02-05] VITALS (15 sets, daily range): BP systolic 102–166; BP diastolic 55–71; PULSE 34–65; RESP 17–20
[2017-02-05] MEDS: CALCIUM CARBONATE 500 MG CHEW TAB PO SCH ×3 (02:31→18:22)
[2017-02-05] MEDS: PIPER-TAZO 2.25 GM (PMX) 50 ML IVPB SCH ×3 (07:01→22:09)
[2017-02-05] MEDS: FUROSEMIDE 20 MG INJ IV SCH (07:01)
[2017-02-05] MEDS: PANTOPRAZOLE (EC) 40 MG TAB PO SCH (07:01)
[2017-02-05 07:11] LABS: ADD SCAN DIFF NO
[2017-02-05 07:15] LABS: BASOPHILS % 0.1 % (0.0-2.0); HEMATOCRIT 31.8 % (37.0-47.0); HEMOGLOBIN 10.1 g/dl (12.0-16.0); LYMPHOCYTES # 1.3 10^3/ul (0.8-2.9); LYMPHOCYTES % 8.7 % (15.0-51.0); MEAN CORPUSCULAR HEMOGLOBIN 30.1 pg (29.0-33.0); MEAN CORPUSCULAR HGB CONC 31.8 g/dl (32.0-37.0); MEAN CORPUSCULAR VOLUME 94.6 fl (82.0-101.0); MEAN PLATELET VOLUME 9.5 fl (7.4-10.4); MONOCYTE # 0.5 10^3/ul (0.3-0.9); MONOCYTES % 3.3 % (0.0-11.0); NEUTROPHIL # 12.4 10^3/ul (1.6-7.5); NUCLEATED RED BLOOD CELLS% 0.2 /100WBC (0.0-0.0); PLATELET COUNT 369 10^3/UL (140-415); RED BLOOD COUNT 3.36 10^6/ul (4.20-5.40); RED CELL DISTRIBUTION WIDTH 16.2 % (11.5-14.5); WHITE BLOOD COUNT 14.4 10^3/ul (4.8-10.8)
[2017-02-05 07:45] LABS: POTASSIUM 4.7 mmol/L (3.5-5.1)
[2017-02-05 07:48] LABS: CALCIUM 8.9 mg/dl (8.4-10.2); CREATININE 2.45 mg/dl (0.44-1.00)
[2017-02-05] MEDS: ASPIRIN (EC) 325 MG TAB PO SCH (08:21)
[2017-02-05] MEDS: METHYLPREDNISOLONE 40 MG INJ IV SCH ×2 (08:22→22:06)
[2017-02-05] MEDS: METOPROLOL 50 MG TAB PO SCH ×3 (08:24→21:00)
[2017-02-05] MEDS: ISOSORBIDE DINITRATE 10 MG TAB PO SCH ×3 (08:25→22:08)
[2017-02-05] MEDS: BENAZEPRIL 20 MG TAB PO SCH ×2 (08:25→22:07)
[2017-02-05] MEDS: ALBUTEROL/IPRATROPIUM (NEB) 3 ML AMP HHN SCH ×3 (08:37→20:45)
--- NOTE | 2017-02-05 15:06 | CONS ---
Date/Time of Note Date/Time of Note DATE: 02/05/17 TIME: 15:02 Assessment/Plan Assessment/Plan Chief Complaint/Hosp Course IMPRESSION: 1. Atrial fibrillation, not currently on systemic anticoagulation but on asa, rate controlled 2. Shortness of breath, assess for congestive heart failure. 3. Diastolic dysfunction by 2D echo this admission.-CHF by cxr 02/01 4. Hypertension. 5. Possible chronic obstructive pulmonary disease. 6. Possible bronchitis. 7. Possible pneumonia. 8. Dyslipidemia. 9. Chronic kidney disease. 10. Anemia. 11. Leukocytosis 12. Chest pain-improved/negative troponin x 2/NO changes on ECG 14. BRadycardia-to 30's Recc: -Tele -serial ecg;'s -gentle lasix diuresis following director career services/volume status closely-? need for HD -Continue asa/statin/isordil -Decrease dose of BB given bradycardia and follow for recurrent bradycardia -Continue steroids/bronchodilators/abx's -Continue SQ heparin -Follow for recurrent AF Problems: Consultation Date/Type/Reason Admit Date/Time Jan 31, 2017 at 15:05 Initial Consult Date 01/30/2017 Type of Consultation: Cardiology Reason for Consultation CHF/AF Referring Provider: LOREN ROSE MD Exam/Review of Systems Vital Signs Vitals Vital Signs Date Time Temp Pulse Resp B/P Pulse Ox O2 Delivery O2 Flow Rate FiO2 02/05/17 14:59 98.2 62 18 134/63 98 02/05/17 13:47 21 02/05/17 02:39 Room Air 02/04/17 08:10 2.0 Intake and Output 02/04/17 02/04/17 02/05/17 15:00 23:00 07:00 Intake Total 870 ml 300 ml Balance 870 ml 300 ml Exam Review of Systems: CONSTITUTIONAL: No fevers, chills. PULMONARY: mild sob/cough CARDIOVASCULAR: No chest pain/palpitations GASTROINTESTINAL: No nausea/vomiting. GENITOURINARY: No hematuria/dysuria. MUSCULOSKELETAL: No myagias/arthalgias. PSYCHIATRIC: The patient denies depression. NEUROLOGIC: No weakness Constitutional: alert Psych: no complaints Head: normocephalic ENMT: mucosa pink and moist Neck: jvd, supple Respiratory: diminished breath sounds Cardiovascular: regular rate and rhythm Gastrointestinal: non-tender, soft Extremities: edema 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: other (No focal deficits) Results Result Diagram: 02/05/17 0630 02/05/17 0630 Results 24 hrs Laboratory Tests Test 02/05/17 06:30 Anion Gap 19 H Basophils # 0.0 Basophils % 0.1 Blood Urea Nitrogen 73 H Calcium Level 8.9 Carbon Dioxide Level 23 Chloride Level 106 Creatinine 2.45 H Eosinophils # 0.0 Eosinophils % 0.0 Glucose Level 129 Hematocrit 31.8 L Hemoglobin 10.1 L Lymphocytes # 1.3 Lymphocytes % 8.7 L Mean Corpuscular Hemoglobin 30.1 Mean Corpuscular Hemoglobin Concent 31.8 L Mean Corpuscular Volume 94.6 Mean Platelet Volume 9.5 Monocytes # 0.5 Monocytes % 3.3 Neutrophils # 12.4 H Neutrophils % 86.0 H Nucleated Red Blood Cells # 0.0 Nucleated Red Blood Cells % 0.2 H Platelet Count 369 Potassium Level 4.7 Red Blood Count 3.36 L Red Cell Distribution Width 16.2 H Sodium Level 143 White Blood Count 14.4 H Medications Medications Current Medications Acetaminophen (Tylenol Tab) 650 mg Q4H PRN PO PAIN AND OR ELEVATED TEMP Last administered on 01/29/17 18:54; Admin Dose 650 MG; Start 01/29/17 at 05:30 Guaifenesin/ Codeine Phosphate (Robitussin Ac Liquid Cup) 10 ml Q4H PRN PO COUGH Last administered on 02/01/17 01:26; Admin Dose 10 ML; Start 01/29/17 at 05:30 Atorvastatin Calcium (Lipitor) 10 mg HS PO Last administered on 02/04/17 22:16 ; Admin Dose 10 MG; Start 01/29/17 at 21:00 Pantoprazole (Protonix Tab) 40 mg DAILY@06 PO Last administered on 02/05/17 07 :01; Admin Dose 40 MG; Start 01/29/17 at 16:00 Epoetin Larry (Epogen (Non Esrd/Non Oncology)) 3,000 units MoWeFr@17 SC Last administered on 02/03/17 18:05; Admin Dose 3,000 UNITS; Start 01/31/17 at 17:00 Metoprolol Tartrate (Lopressor) 50 mg BID PO Last administered on 02/05/17 08: 24; Admin Dose 50 MG; Start 01/30/17 at 21:00 Aspirin (Ecotrin) 325 mg DAILY PO Last administered on 02/05/17 08:21; Admin Dose 325 MG; Start 01/31/17 at 09:00 Diltiazem HCl (Cardizem Iv) 5 mg Q4 PRN IV HR>110 Hold SBP<100; Start 01/30/17 at 20:30 Furosemide (Lasix) 20 mg DAILY@06 IV Last administered on 02/05/17 07:01; Admin Dose 20 MG; Start 01/31/17 at 12:30 IV Flush (NS 10 ml) 10 ml PRN PRN IV FLUSH LINE; Start 01/31/17 at 17:30 Oxycodone/ Acetaminophen (Percocet (5/ 325)) 1 tab Q4H PRN PO PAIN Last administered on 02/04/17 22:17; Admin Dose 1 TAB; Start 02/01/17 at 07:30 Levofloxacin (Levaquin) 500 mg Q2D@06 PO Last administered on 02/04/17 05:31; Admin Dose 500 MG; Start 02/02/17 at 06:00 Methylprednisolone Sodium Succinate 20 mg 20 mg Q12 IV Last administered on 08:22; Admin Dose 20 MG; Start 02/02/17 at 09:00 Piperacillin Sod/ Tazobactam Sod (Zosyn 2.25gm/ 50ml (Pmx)) 50 ml @ 100 mls/hr Q8 IVPB Last administered on 02/05/17 13:09; Admin Dose 100 MLS/HR; Start 10/10 at 22:00 Nitroglycerin (Nitroglycerin (Sl Tab) 0.4 Mg) 1 tab Q5M PRN SL ANGINA; Start at 14:30 Ondansetron HCl (Zofran Tab) 4 mg Q6H PRN PO NAUSEA AND/OR VOMITING; Start 11/09 at 14:30 Diphenhydramine HCl (Benadryl) 50 mg Q6H PRN PO ALLERGIC REACTION Last administered on 02/02/17 23:04; Admin Dose 50 MG; Start 02/02/17 at 22:30 Isosorbide Dinitrate (Isordil) 10 mg TID PO Last administered on 02/05/17 13: 07; Admin Dose 10 MG; Start 02/03/17 at 15:30 Al Hydrox/Mg Hydrox/Simethicone (Mag-Al Plus) 30 ml Q6H PRN PO GASTROINTESTINAL UPSET; Start 02/03/17 at 15:30 Benazepril HCl (Lotensin) 20 mg BID PO Last administered on 02/05/17t 08:25; Admin Dose 20 MG; Start 02/03/17 at 21:00 ALVINA GARCIA Feb 05, 2017 15:06
--- NOTE | 2017-02-05 15:16 | CONS ---
Date/Time of Note Date/Time of Note DATE: 02/05/17 TIME: 15:16 Assessment/Plan Assessment/Plan Additional Assessment/Plan . 86 yo female with 1) Acute Bronchitis 2) COPD Exacerbation 3) CKD Likely Stage IV 4) Anemia, Chronic Disease 5) Pre Renal Azotemia Pt has component of Pre-renal Azotemia in the setting of Diuretic Rx, IV lasix...Also Steroid Rx may be contributing as well Will DC Diuretic Rx at this time and cont to monitor Overall Cr Stable, If Bun continues to rise, encourage increased fluid intake, will hold off on IVFs at this time. There is no indication for HD at this time. Consultation Date/Type/Reason Admit Date/Time Jan 31, 2017 at 15:05 Type of Consultation: Renal Referring Provider: LOREN ROSE MD 24 HR Interval Summary Free Text/Dictation SOB improved, Not requiring O2 Constitutional: No requiring O2 Exam/Review of Systems Vital Signs Vitals Vital Signs Date Time Temp Pulse Resp B/P Pulse Ox O2 Delivery O2 Flow Rate FiO2 02/05/17 14:59 98.2 62 18 134/63 98 02/05/17 13:47 21 02/05/17 02:39 Room Air 02/04/17 08:10 2.0 Intake and Output 02/04/17 02/04/17 02/05/17 15:00 23:00 07:00 Intake Total 870 ml 300 ml Balance 870 ml 300 ml Exam Constitutional: No distress ENMT: mucosa pink and moist Neck: No jvd Respiratory: clear to auscultation Cardiovascular: regular rate and rhythm, No edema Gastrointestinal: non-tender, soft 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-XII 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, nl mental status Skin: No diaphoresis Results Result Diagram: 02/05/17 0630 02/05/17 0630 Results 24 hrs Laboratory Tests Test 02/05/17 06:30 Anion Gap 19 H Basophils # 0.0 Basophils % 0.1 Blood Urea Nitrogen 73 H Calcium Level 8.9 Carbon Dioxide Level 23 Chloride Level 106 Creatinine 2.45 H Eosinophils # 0.0 Eosinophils % 0.0 Glucose Level 129 Hematocrit 31.8 L Hemoglobin 10.1 L Lymphocytes # 1.3 Lymphocytes % 8.7 L Mean Corpuscular Hemoglobin 30.1 Mean Corpuscular Hemoglobin Concent 31.8 L Mean Corpuscular Volume 94.6 Mean Platelet Volume 9.5 Monocytes # 0.5 Monocytes % 3.3 Neutrophils # 12.4 H Neutrophils % 86.0 H Nucleated Red Blood Cells # 0.0 Nucleated Red Blood Cells % 0.2 H Platelet Count 369 Potassium Level 4.7 Red Blood Count 3.36 L Red Cell Distribution Width 16.2 H Sodium Level 143 White Blood Count 14.4 H Medications Medications Current Medications Acetaminophen (Tylenol Tab) 650 mg Q4H PRN PO PAIN AND OR ELEVATED TEMP Last administered on 01/29/17 18:54; Admin Dose 650 MG; Start 01/29/17 at 05:30 Guaifenesin/ Codeine Phosphate (Robitussin Ac Liquid Cup) 10 ml Q4H PRN PO COUGH Last administered on 02/01/17 01:26; Admin Dose 10 ML; Start 01/29/17 at 05:30 Atorvastatin Calcium (Lipitor) 10 mg HS PO Last administered on 02/04/17 22:16 ; Admin Dose 10 MG; Start 01/29/17 at 21:00 Pantoprazole (Protonix Tab) 40 mg DAILY@06 PO Last administered on 02/05/17 07 :01; Admin Dose 40 MG; Start 01/29/17 at 16:00 Epoetin Larry (Epogen (Non Esrd/Non Oncology)) 3,000 units MoWeFr@17 SC Last administered on 02/03/17 18:05; Admin Dose 3,000 UNITS; Start 01/31/17 at 17:00 Aspirin (Ecotrin) 325 mg DAILY PO Last administered on 02/05/17 08:21; Admin Dose 325 MG; Start 01/31/17 at 09:00 Diltiazem HCl (Cardizem Iv) 5 mg Q4 PRN IV HR>110 Hold SBP<100; Start 01/30/17 at 20:30 Furosemide (Lasix) 20 mg DAILY@06 IV Last administered on 02/05/17 07:01; Admin Dose 20 MG; Start 01/31/17 at 12:30 IV Flush (NS 10 ml) 10 ml PRN PRN IV FLUSH LINE; Start 01/31/17 at 17:30 Oxycodone/ Acetaminophen (Percocet (5/ 325)) 1 tab Q4H PRN PO PAIN Last administered on 02/04/17 22:17; Admin Dose 1 TAB; Start 02/01/17 at 07:30 Levofloxacin (Levaquin) 500 mg Q2D@06 PO Last administered on 02/04/17 05:31; Admin Dose 500 MG; Start 02/02/17 at 06:00 Methylprednisolone Sodium Succinate 20 mg 20 mg Q12 IV Last administered on 08:22; Admin Dose 20 MG; Start 02/02/17 at 09:00 Piperacillin Sod/ Tazobactam Sod (Zosyn 2.25gm/ 50ml (Pmx)) 50 ml @ 100 mls/hr Q8 IVPB Last administered on 02/05/17 13:09; Admin Dose 100 MLS/HR; Start 10/10 at 22:00 Nitroglycerin (Nitroglycerin (Sl Tab) 0.4 Mg) 1 tab Q5M PRN SL ANGINA; Start at 14:30 Ondansetron HCl (Zofran Tab) 4 mg Q6H PRN PO NAUSEA AND/OR VOMITING; Start 11/09 at 14:30 Diphenhydramine HCl (Benadryl) 50 mg Q6H PRN PO ALLERGIC REACTION Last administered on 02/02/17 23:04; Admin Dose 50 MG; Start 02/02/17 at 22:30 Isosorbide Dinitrate (Isordil) 10 mg TID PO Last administered on 02/05/17 13: 07; Admin Dose 10 MG; Start 02/03/17 at 15:30 Al Hydrox/Mg Hydrox/Simethicone (Mag-Al Plus) 30 ml Q6H PRN PO GASTROINTESTINAL UPSET; Start 02/03/17 at 15:30 Benazepril HCl (Lotensin) 20 mg BID PO Last administered on 02/05/17 08:25; Admin Dose 20 MG; Start 02/03/17 at 21:00 Metoprolol Tartrate (Lopressor) 25 mg BID PO ; Start 02/05/17 at 16:00 Heparin Sodium (Porcine) (Heparin (5000 Units/0.5 ml)) 5,000 unit BID SC ; Start 02/05/17 at 16:00 ERIN KOWALSKI MD Feb 05, 2017 15:16
[2017-02-05] MEDS: EPOETIN 3000 UNITS/ML (NON ESRD/NON ONCOLOGY) SC SCH (16:30)
[2017-02-05] MEDS: HEPARIN 5,000 UNIT/0.5 ML SYG SC SCH ×2 (16:37→22:20)
--- NOTE | 2017-02-05 16:38 | PN ---
Date/Time of Note Date/Time of Note DATE: 02/05/17 TIME: 16:36 Assessment/Plan VTE Prophylaxis VTE Prophylaxis Intervention: SCD's Lines/Catheters IV [facility] Type (from [facility] PICC Line Central line still needed: Yes Urinary Cath still in place: No Assessment/Plan Chief Complaint/Hosp Course ASSESSMENT AND PLAN: - Possible bronchitis versus early pneumonia. Continue Levaquin, continue breathing treatments. - Ecoli urinary tract infection. Continue Levaquin. - Diastolic dysfunction congestive heart failure. Dr. Iraheta is following and cardiology consultation, continue gentle diuresis. - Atrial fibrillation at controlled rate. Continue aspirin and metoprolol. - Hypertension. Continue metoprolol and benazepril. - Aortic stenosis. - Hyperlipidemia. Continue statin. - Possible chronic obstructive pulmonary disease exacerbation. Continue patient on breathing treatments, start the patient on steroids. Continue supplemental oxygen. - Stage IV chronic kidney disease. Kidney ultrasound is consistent with chronic kidney disease. Dr. Gordon is following in nephrology consultation. - Gout. Continue allopurinol. - Anemia of chronic disease, continue Epogen. Continue Lovenox for deep venous thrombosis prophylaxis and Protonix for peptic ulcer disease prophylaxis. Further recommendations based on clinical course. Plan of care discussed with Dr. Olivier. Problems: Subjective 24 Hr Interval Summary Free Text/Dictation Patient with bradycardia heart rate going into 30s, metoprolol decreased by cardiology, patient states improvement in breathing denies any chest pain denies shortness of breath, continue telemetry monitoring. Exam/Review of Systems Vital Signs Vitals Vital Signs Date Time Temp Pulse Resp B/P Pulse Ox O2 Delivery O2 Flow Rate FiO2 02/05/17 16:31 64 02/05/17 14:59 98.2 18 134/63 98 02/05/17 13:47 21 02/05/17 02:39 Room Air 02/04/17 08:10 2.0 Intake and Output 02/04/17 02/04/17 02/05/17 15:00 23:00 07:00 Intake Total 870 ml 300 ml Balance 870 ml 300 ml Exam Constitutional: alert, oriented Psych: no complaints Head: atraumatic, normocephalic Eyes: nl conjunctiva Neck: non-tender, supple Respiratory: other (Diminished at the bases) Cardiovascular: other (Irregularly irregular rhythm) Gastrointestinal: non-tender, soft Musculoskeletal: nl extremities to inspection, nl gait and stance Extremities: normal pulses 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 Results Result Diagram: 02/05/17 0630 02/05/17 0630 Results 24 hrs Laboratory Tests Test 02/05/17 06:30 Anion Gap 19 H Basophils # 0.0 Basophils % 0.1 Blood Urea Nitrogen 73 H Calcium Level 8.9 Carbon Dioxide Level 23 Chloride Level 106 Creatinine 2.45 H Eosinophils # 0.0 Eosinophils % 0.0 Glucose Level 129 Hematocrit 31.8 L Hemoglobin 10.1 L Lymphocytes # 1.3 Lymphocytes % 8.7 L Mean Corpuscular Hemoglobin 30.1 Mean Corpuscular Hemoglobin Concent 31.8 L Mean Corpuscular Volume 94.6 Mean Platelet Volume 9.5 Monocytes # 0.5 Monocytes % 3.3 Neutrophils # 12.4 H Neutrophils % 86.0 H Nucleated Red Blood Cells # 0.0 Nucleated Red Blood Cells % 0.2 H Platelet Count 369 Potassium Level 4.7 Red Blood Count 3.36 L Red Cell Distribution Width 16.2 H Sodium Level 143 White Blood Count 14.4 H Medications Medications Current Medications Acetaminophen (Tylenol Tab) 650 mg Q4H PRN PO PAIN AND OR ELEVATED TEMP Last administered on 01/29/17 18:54; Admin Dose 650 MG; Start 01/29/17 at 05:30 Guaifenesin/ Codeine Phosphate (Robitussin Ac Liquid Cup) 10 ml Q4H PRN PO COUGH Last administered on 02/01/17 01:26; Admin Dose 10 ML; Start 01/29/17 at 05:30 Atorvastatin Calcium (Lipitor) 10 mg HS PO Last administered on 02/04/17 22:16 ; Admin Dose 10 MG; Start 01/29/17 at 21:00 Pantoprazole (Protonix Tab) 40 mg DAILY@06 PO Last administered on 02/05/17 07 :01; Admin Dose 40 MG; Start 01/29/17 at 16:00 Epoetin Larry (Epogen (Non Esrd/Non Oncology)) 3,000 units MoWeFr@17 SC Last administered on 02/03/17 18:05; Admin Dose 3,000 UNITS; Start 01/31/17 at 17:00 Aspirin (Ecotrin) 325 mg DAILY PO Last administered on 02/05/17 08:21; Admin Dose 325 MG; Start 01/31/17 at 09:00 Diltiazem HCl (Cardizem Iv) 5 mg Q4 PRN IV HR>110 Hold SBP<100; Start 01/30/17 at 20:30 Furosemide (Lasix) 20 mg DAILY@06 IV Last administered on 02/05/17 07:01; Admin Dose 20 MG; Start 01/31/17 at 12:30 IV Flush (NS 10 ml) 10 ml PRN PRN IV FLUSH LINE; Start 01/31/17 at 17:30 Oxycodone/ Acetaminophen (Percocet (5/ 325)) 1 tab Q4H PRN PO PAIN Last administered on 02/04/17 22:17; Admin Dose 1 TAB; Start 02/01/17 at 07:30 Levofloxacin (Levaquin) 500 mg Q2D@06 PO Last administered on 02/04/17 05:31; Admin Dose 500 MG; Start 02/02/17 at 06:00 Methylprednisolone Sodium Succinate 20 mg 20 mg Q12 IV Last administered on 08:22; Admin Dose 20 MG; Start 02/02/17 at 09:00 Piperacillin Sod/ Tazobactam Sod (Zosyn 2.25gm/ 50ml (Pmx)) 50 ml @ 100 mls/hr Q8 IVPB Last administered on 02/05/17 13:09; Admin Dose 100 MLS/HR; Start 10/10 at 22:00 Nitroglycerin (Nitroglycerin (Sl Tab) 0.4 Mg) 1 tab Q5M PRN SL ANGINA; Start at 14:30 Ondansetron HCl (Zofran Tab) 4 mg Q6H PRN PO NAUSEA AND/OR VOMITING; Start 11/09 at 14:30 Diphenhydramine HCl (Benadryl) 50 mg Q6H PRN PO ALLERGIC REACTION Last administered on 02/02/17 23:04; Admin Dose 50 MG; Start 02/02/17 at 22:30 Isosorbide Dinitrate (Isordil) 10 mg TID PO Last administered on 02/05/17 13: 07; Admin Dose 10 MG; Start 02/03/17 at 15:30 Al Hydrox/Mg Hydrox/Simethicone (Mag-Al Plus) 30 ml Q6H PRN PO GASTROINTESTINAL UPSET; Start 02/03/17 at 15:30 Benazepril HCl (Lotensin) 20 mg BID PO Last administered on 02/05/17t 08:25; Admin Dose 20 MG; Start 02/03/17 at 21:00 Metoprolol Tartrate (Lopressor) 25 mg BID PO ; Start 02/05/17 at 16:00 Heparin Sodium (Porcine) (Heparin (5000 Units/0.5 ml)) 5,000 unit BID SC ; Start 02/05/17 at 16:00 EDWAR VARGAS Feb 05, 2017 16:38
--- NOTE | 2017-02-05 19:05 | RADRPT ---
Vent Rate: 65 bpm RR Interval: 0 msec W[place] Interval: 154 msec QRS Duration: 72 msec QT Interval: 436 msec QTC Interval: 453 msec P-R-T [place]: 57 - 38 - 55 degrees Sinus rhythm with premature atrial complexes with aberrant conduction Otherwise normal ECG Electronically Signed By: Oswaldo Ellis [id number]
[2017-02-05] MEDS: ATORVASTATIN 10 MG TAB PO SCH (22:06)
[2017-02-05] MEDS: OXYCODONE/ACETAMINOPHEN (5/325) TAB PO PRN (22:16)
[2017-02-06] VITALS (16 sets, daily range): BP systolic 105–139; BP diastolic 53–69; PULSE 32–162; RESP 18–20
[2017-02-06] MEDS: DIPHENHYDRAMINE 50 MG CAP PO PRN (00:41)
[2017-02-06] MEDS: PIPER-TAZO 2.25 GM (PMX) 50 ML IVPB SCH ×3 (06:15→23:18)
[2017-02-06] MEDS: FUROSEMIDE 20 MG INJ IV SCH (06:15)
[2017-02-06] MEDS: PANTOPRAZOLE (EC) 40 MG TAB PO SCH (06:15)
[2017-02-06] MEDS: LEVOFLOXACIN 500 MG TAB PO SCH (06:20)
[2017-02-06 06:37] LABS: ADD SCAN DIFF NO
[2017-02-06 06:48] LABS: BASOPHILS % 0.1 % (0.0-2.0); EOSINOPHILS # 0.1 10^3/ul (0.0-0.5); EOSINOPHILS % 0.9 % (0.0-7.0); HEMATOCRIT 31.6 % (37.0-47.0); HEMOGLOBIN 10.4 g/dl (12.0-16.0); LYMPHOCYTES # 2.6 10^3/ul (0.8-2.9); LYMPHOCYTES % 15.9 % (15.0-51.0); MEAN CORPUSCULAR HEMOGLOBIN 31.2 pg (29.0-33.0); MEAN CORPUSCULAR HGB CONC 32.9 g/dl (32.0-37.0); MEAN CORPUSCULAR VOLUME 94.9 fl (82.0-101.0); MEAN PLATELET VOLUME 9.5 fl (7.4-10.4); MONOCYTE # 1.3 10^3/ul (0.3-0.9); MONOCYTES % 8.1 % (0.0-11.0); NEUTROPHILS % 73.2 % (39.0-77.0); NUCLEATED RED BLOOD CELLS% 0.2 /100WBC (0.0-0.0); PLATELET COUNT 346 10^3/UL (140-415); RED BLOOD COUNT 3.33 10^6/ul (4.20-5.40); RED CELL DISTRIBUTION WIDTH 16.6 % (11.5-14.5); WHITE BLOOD COUNT 16.4 10^3/ul (4.8-10.8)
[2017-02-06 07:06] LABS: POTASSIUM 3.8 mmol/L (3.5-5.1)
[2017-02-06 07:08] LABS: CREATININE 2.71 mg/dl (0.44-1.00)
[2017-02-06 07:09] LABS: CALCIUM 8.5 mg/dl (8.4-10.2)
[2017-02-06] MEDS: CALCIUM CARBONATE 500 MG CHEW TAB PO SCH ×3 (08:15→17:57)
[2017-02-06] MEDS: ASPIRIN (EC) 325 MG TAB PO SCH (08:15)
[2017-02-06] MEDS: METHYLPREDNISOLONE 40 MG INJ IV SCH ×2 (08:16→20:45)
[2017-02-06] MEDS: BENAZEPRIL 20 MG TAB PO SCH ×2 (08:16→20:45)
[2017-02-06] MEDS: HEPARIN 5,000 UNIT/0.5 ML SYG SC SCH ×2 (08:22→20:47)
[2017-02-06] MEDS: ISOSORBIDE DINITRATE 10 MG TAB PO SCH ×3 (08:26→20:49)
[2017-02-06] MEDS: METOPROLOL 50 MG TAB PO SCH ×2 (08:26→20:46)
[2017-02-06] MEDS: ALBUTEROL/IPRATROPIUM (NEB) 3 ML AMP HHN SCH ×3 (08:43→20:38)
--- NOTE | 2017-02-06 12:18 | PN ---
Date/Time of Note Date/Time of Note DATE: 02/06/17 TIME: 12:17 Assessment/Plan VTE Prophylaxis VTE Prophylaxis Intervention: LMWH Lines/Catheters IV C[facility]ter Type (from [facility] PICC Line Urinary Cath still in place: No Assessment/Plan Assessment/Plan - Possible bronchitis versus early pneumonia. Continue Levaquin, continue breathing treatments. - Ecoli urinary tract infection. Continue Levaquin. - Diastolic dysfunction congestive heart failure. Dr. Iraheta is following and cardiology consultation, continue gentle diuresis. - Atrial fibrillation at controlled rate. Continue aspirin and metoprolol. - Hypertension. Continue metoprolol and benazepril. - Aortic stenosis. - Hyperlipidemia. Continue statin. - Possible chronic obstructive pulmonary disease exacerbation. Continue patient on breathing treatments, start the patient on steroids. Continue supplemental oxygen. - Stage IV chronic kidney disease. Kidney ultrasound is consistent with chronic kidney disease. Dr. Gordon is following in nephrology consultation. - Gout. Continue allopurinol. - Anemia of chronic disease, continue Epogen. Continue Lovenox for deep venous thrombosis prophylaxis and Protonix for peptic ulcer disease prophylaxis. Further recommendations based on clinical course. Plan of care discussed with Dr. Olivier. Subjective 24 Hr Interval Summary Free Text/Dictation nad, eating lunch. dw staff Constitutional: improved Eyes: no complaints ENT: no complaints Respiratory: no complaints Cardiovascular: no complaints Gastrointestinal: no complaints Musculoskeletal: no complaints Skin: no complaints Exam/Review of Systems Vital Signs Vitals Vital Signs Date Time Temp Pulse Resp B/P Pulse Ox O2 Delivery O2 Flow Rate FiO2 02/06/17 11:41 98.2 79 19 138/65 98 02/06/17 08:47 21 02/05/17 02:39 Room Air 02/04/17 08:10 2.0 Intake and Output 02/05/17 02/05/17 02/06/17 15:00 23:00 07:00 Intake Total 970 ml Balance 970 ml Exam Constitutional: alert, well developed Psych: no complaints Head: atraumatic Eyes: nl conjunctiva ENMT: nl external ears & nose Neck: supple Respiratory: clear to auscultation Cardiovascular: nl pulses Gastrointestinal: non-tender, soft Extremities: normal pulses Skin: nl turgor Results Result Diagram: 02/06/17 0611 02/06/17 0611 Results 24 hrs Laboratory Tests Test 02/06/17 06:11 Anion Gap 19 H Basophils # 0.0 Basophils % 0.1 Blood Urea Nitrogen 79 H Calcium Level 8.5 Carbon Dioxide Level 22 Chloride Level 106 Creatinine 2.71 H Eosinophils # 0.1 Eosinophils % 0.9 Glucose Level 99 Hematocrit 31.6 L Hemoglobin 10.4 L Lymphocytes # 2.6 Lymphocytes % 15.9 Mean Corpuscular Hemoglobin 31.2 Mean Corpuscular Hemoglobin Concent 32.9 Mean Corpuscular Volume 94.9 Mean Platelet Volume 9.5 Monocytes # 1.3 H Monocytes % 8.1 Neutrophils # 12.0 H Neutrophils % 73.2 Nucleated Red Blood Cells # 0.0 Nucleated Red Blood Cells % 0.2 H Platelet Count 346 Potassium Level 3.8 Red Blood Count 3.33 L Red Cell Distribution Width 16.6 H Sodium Level 143 White Blood Count 16.4 H Medications Medications Current Medications Acetaminophen (Tylenol Tab) 650 mg Q4H PRN PO PAIN AND OR ELEVATED TEMP Last administered on 01/29/17 18:54; Admin Dose 650 MG; Start 01/29/17 at 05:30 Guaifenesin/ Codeine Phosphate (Robitussin Ac Liquid Cup) 10 ml Q4H PRN PO COUGH Last administered on 02/01/17 01:26; Admin Dose 10 ML; Start 01/29/17 at 05:30 Atorvastatin Calcium (Lipitor) 10 mg HS PO Last administered on 02/05/17 22:06 ; Admin Dose 10 MG; Start 01/29/17 at 21:00 Pantoprazole (Protonix Tab) 40 mg DAILY@06 PO Last administered on 02/06/17 06 :15; Admin Dose 40 MG; Start 01/29/17 at 16:00 Epoetin Larry (Epogen (Non Esrd/Non Oncology)) 3,000 units MoWeFr@17 SC Last administered on 02/05/17 16:30; Admin Dose 3,000 UNITS; Start 01/31/17 at 17:00 Aspirin (Ecotrin) 325 mg DAILY PO Last administered on 02/06/17 08:15; Admin Dose 325 MG; Start 01/31/17 at 09:00 Diltiazem HCl (Cardizem Iv) 5 mg Q4 PRN IV HR>110 Hold SBP<100; Start 01/30/17 at 20:30 Furosemide (Lasix) 20 mg DAILY@06 IV Last administered on 02/06/17 06:15; Admin Dose 20 MG; Start 01/31/17 at 12:30 IV Flush (NS 10 ml) 10 ml PRN PRN IV FLUSH LINE; Start 01/31/17 at 17:30 Oxycodone/ Acetaminophen (Percocet (5/ 325)) 1 tab Q4H PRN PO PAIN Last administered on 02/05/17 22:16; Admin Dose 1 TAB; Start 02/01/17 at 07:30 Levofloxacin (Levaquin) 500 mg Q2D@06 PO Last administered on 02/06/17 06:20; Admin Dose 500 MG; Start 02/02/17 at 06:00 Methylprednisolone Sodium Succinate 20 mg 20 mg Q12 IV Last administered on 08:16; Admin Dose 20 MG; Start 02/02/17 at 09:00 Piperacillin Sod/ Tazobactam Sod (Zosyn 2.25gm/ 50ml (Pmx)) 50 ml @ 100 mls/hr Q8 IVPB Last administered on 02/06/17 06:15; Admin Dose 100 MLS/HR; Start 10/10 at 22:00 Nitroglycerin (Nitroglycerin (Sl Tab) 0.4 Mg) 1 tab Q5M PRN SL ANGINA; Start at 14:30 Ondansetron HCl (Zofran Tab) 4 mg Q6H PRN PO NAUSEA AND/OR VOMITING; Start 11/09 at 14:30 Diphenhydramine HCl (Benadryl) 50 mg Q6H PRN PO ALLERGIC REACTION Last administered on 02/06/17 00:41; Admin Dose 50 MG; Start 02/02/17 at 22:30 Isosorbide Dinitrate (Isordil) 10 mg TID PO Last administered on 02/05/17 22: 08; Admin Dose 10 MG; Start 02/03/17 at 15:30 Al Hydrox/Mg Hydrox/Simethicone (Mag-Al Plus) 30 ml Q6H PRN PO GASTROINTESTINAL UPSET; Start 02/03/17 at 15:30 Benazepril HCl (Lotensin) 20 mg BID PO Last administered on 02/06/17 08:16; Admin Dose 20 MG; Start 02/03/17 at 21:00 Metoprolol Tartrate (Lopressor) 25 mg BID PO Last administered on 02/05/17 16: 28; Admin Dose 25 MG; Start 02/05/17 at 16:00 Heparin Sodium (Porcine) (Heparin (5000 Units/0.5 ml)) 5,000 unit BID SC Last administered on 02/06/17 08:22; Admin Dose 5,000 UNIT; Start 02/05/17 at 16:00 KATIE MENDEZ Feb 06, 2017 12:18
--- NOTE | 2017-02-06 13:34 | CONS ---
Date/Time of Note Date/Time of Note DATE: 02/06/17 TIME: 13:31 Assessment/Plan Assessment/Plan Chief Complaint/Hosp Course IMPRESSION: 1. Atrial fibrillation, not currently on systemic anticoagulation but on asa, rate controlled and currently in SR/SB 2. Shortness of breath, assess for congestive heart failure. 3. Diastolic dysfunction by 2D echo this admission.-CHF by cxr 02/01 4. Hypertension. 5. Possible chronic obstructive pulmonary disease. 6. Possible bronchitis. 7. Possible pneumonia. 8. Dyslipidemia. 9. Chronic kidney disease. 10. Anemia. 11. Leukocytosis 12. Chest pain-improved/negative troponin x 2/NO changes on ECG 14. BRadycardia-to 30's still recurrent Recc: -Tele -serial ecg;'s -gentle lasix diuresis following watch engineer/volume status closely-? need for HD -Continue asa/statin/isordil -Hold BB and follow for recurrent bradycardia -Continue steroids/bronchodilators/abx's -Continue SQ heparin -Follow for recurrent AF Problems: Consultation Date/Type/Reason Admit Date/Time Jan 31, 2017 at 15:05 Initial Consult Date 01/30/2017 Type of Consultation: Cardiology Reason for Consultation Bradycardia/AF Referring Provider: LOREN ROSE MD Exam/Review of Systems Vital Signs Vitals Vital Signs Date Time Temp Pulse Resp B/P Pulse Ox O2 Delivery O2 Flow Rate FiO2 02/06/17 12:13 59 02/06/17 11:41 98.2 19 138/65 98 02/06/17 08:47 21 02/05/17 02:39 Room Air 02/04/17 08:10 2.0 Intake and Output 02/05/17 02/05/17 02/06/17 15:00 23:00 07:00 Intake Total 970 ml Balance 970 ml Exam Review of Systems: CONSTITUTIONAL: No fevers, chills. PULMONARY: No sob CARDIOVASCULAR: No chest pain/palpitations GASTROINTESTINAL: No nausea/vomiting. GENITOURINARY: No hematuria/dysuria. MUSCULOSKELETAL: No myagias/arthalgias. PSYCHIATRIC: The patient denies depression. NEUROLOGIC: No weakness Constitutional: alert Psych: no complaints Head: normocephalic ENMT: mucosa pink and moist Neck: jvd (9 cm water), supple Respiratory: diminished breath sounds (at bases/B) Cardiovascular: regular rate and rhythm (bradycardic) Gastrointestinal: non-tender, soft Musculoskeletal: muscle tone (normal) Extremities: edema (trace/B) 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: lethargic Results Result Diagram: 02/06/1761002/06/17 06 Results 24 hrs Laboratory Tests Test 02/06/17 06:11 Anion Gap 19 H Basophils # 0.0 Basophils % 0.1 Blood Urea Nitrogen 79 H Calcium Level 8.5 Carbon Dioxide Level 22 Chloride Level 106 Creatinine 2.71 H Eosinophils # 0.1 Eosinophils % 0.9 Glucose Level 99 Hematocrit 31.6 L Hemoglobin 10.4 L Lymphocytes # 2.6 Lymphocytes % 15.9 Mean Corpuscular Hemoglobin 31.2 Mean Corpuscular Hemoglobin Concent 32.9 Mean Corpuscular Volume 94.9 Mean Platelet Volume 9.5 Monocytes # 1.3 H Monocytes % 8.1 Neutrophils # 12.0 H Neutrophils % 73.2 Nucleated Red Blood Cells # 0.0 Nucleated Red Blood Cells % 0.2 H Platelet Count 346 Potassium Level 3.8 Red Blood Count 3.33 L Red Cell Distribution Width 16.6 H Sodium Level 143 White Blood Count 16.4 H Medications Medications Current Medications Acetaminophen (Tylenol Tab) 650 mg Q4H PRN PO PAIN AND OR ELEVATED TEMP Last administered on 01/29/17 18:54; Admin Dose 650 MG; Start 01/29/17 at 05:30 Guaifenesin/ Codeine Phosphate (Robitussin Ac Liquid Cup) 10 ml Q4H PRN PO COUGH Last administered on 02/01/17 01:26; Admin Dose 10 ML; Start 01/29/17 at 05:30 Atorvastatin Calcium (Lipitor) 10 mg HS PO Last administered on 02/05/17 22:06 ; Admin Dose 10 MG; Start 01/29/17 at 21:00 Pantoprazole (Protonix Tab) 40 mg DAILY@06 PO Last administered on 02/06/17 06 :15; Admin Dose 40 MG; Start 01/29/17 at 16:00 Epoetin Larry (Epogen (Non Esrd/Non Oncology)) 3,000 units MoWeFr@17 SC Last administered on 02/05/17 16:30; Admin Dose 3,000 UNITS; Start 01/31/17 at 17:00 Aspirin (Ecotrin) 325 mg DAILY PO Last administered on 02/06/17 08:15; Admin Dose 325 MG; Start 01/31/17 at 09:00 Diltiazem HCl (Cardizem Iv) 5 mg Q4 PRN IV HR>110 Hold SBP<100; Start 01/30/17 at 20:30 IV Flush (NS 10 ml) 10 ml PRN PRN IV FLUSH LINE; Start 01/31/17 at 17:30 Oxycodone/ Acetaminophen (Percocet (5/ 325)) 1 tab Q4H PRN PO PAIN Last administered on 02/05/17 22:16; Admin Dose 1 TAB; Start 02/01/17 at 07:30 Levofloxacin (Levaquin) 500 mg Q2D@06 PO Last administered on 02/06/17 06:20; Admin Dose 500 MG; Start 02/02/17 at 06:00 Methylprednisolone Sodium Succinate 20 mg 20 mg Q12 IV Last administered on 08:16; Admin Dose 20 MG; Start 02/02/17 at 09:00 Piperacillin Sod/ Tazobactam Sod (Zosyn 2.25gm/ 50ml (Pmx)) 50 ml @ 100 mls/hr Q8 IVPB Last administered on 02/06/17 13:30; Admin Dose 100 MLS/HR; Start 10/10 at 22:00 Nitroglycerin (Nitroglycerin (Sl Tab) 0.4 Mg) 1 tab Q5M PRN SL ANGINA; Start at 14:30 Ondansetron HCl (Zofran Tab) 4 mg Q6H PRN PO NAUSEA AND/OR VOMITING; Start 11/09 at 14:30 Diphenhydramine HCl (Benadryl) 50 mg Q6H PRN PO ALLERGIC REACTION Last administered on 02/06/17 00:41; Admin Dose 50 MG; Start 02/02/17 at 22:30 Isosorbide Dinitrate (Isordil) 10 mg TID PO Last administered on 02/06/17 13: 30; Admin Dose 10 MG; Start 02/03/17 at 15:30 Al Hydrox/Mg Hydrox/Simethicone (Mag-Al Plus) 30 ml Q6H PRN PO GASTROINTESTINAL UPSET; Start 02/03/17 at 15:30 Benazepril HCl (Lotensin) 20 mg BID PO Last administered on 02/06/17 08:16; Admin Dose 20 MG; Start 02/03/17 at 21:00 Metoprolol Tartrate (Lopressor) 25 mg BID PO Last administered on 02/05/17 16: 28; Admin Dose 25 MG; Start 02/05/17 at 16:00 Heparin Sodium (Porcine) (Heparin (5000 Units/0.5 ml)) 5,000 unit BID SC Last administered on 02/06/17 08:22; Admin Dose 5,000 UNIT; Start 02/05/17 at 16:00 ALVINA GARCIA 16, 2017 13:34
[2017-02-06] MEDS: ATORVASTATIN 10 MG TAB PO SCH (20:44)
--- NOTE | 2017-02-06 23:40 | CONS ---
Date/Time of Note Date/Time of Note DATE: 02/06/17 TIME: 23:39 Assessment/Plan Assessment/Plan Chief Complaint/Hosp Course multiple problems Renal coughlin stable High BUN should gradually improve Problems: Additional Assessment/Plan continue close f/u Consultation Date/Type/Reason Admit Date/Time Jan 31, 2017 at 15:05 Type of Consultation: renal Referring Provider: LOREN ROSE MD 24 HR Interval Summary Constitutional: improved Exam/Review of Systems Vital Signs Vitals Vital Signs Date Time Temp Pulse Resp B/P Pulse Ox O2 Delivery O2 Flow Rate FiO2 02/06/17 23:04 128 02/06/17 20:39 20 98 21 02/06/17 19:47 97.9 113/56 02/05/17 02:39 Room Air 02/04/17 08:10 2.0 Intake and Output 02/05/17 02/05/17 02/06/17 15:00 23:00 07:00 Intake Total 970 ml Balance 970 ml Exam Constitutional: alert, obese, oriented, well developed Psych: nl mood/affect, no complaints Head: atraumatic, normocephalic Eyes: EOMI, PERRL, nl conjunctiva, nl lids, nl sclera ENMT: nl external ears & nose, nl lips & teeth, nl nasal mucosa & septum Neck: non-tender, supple Respiratory: clear to auscultation, normal air movement Cardiovascular: nl pulses, regular rate and rhythm Gastrointestinal: nl liver, spleen, non-tender, soft Musculoskeletal: nl extremities to inspection, nl gait and stance Extremities: normal pulses 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: SHAKE BACKBOARD NOTCHER II-XII intact, nl mental status, nl speech, nl strength Skin: nl turgor, other (pale), No rash or lesions Lymph: nl lymph nodes Additional Comments Pt is clinically stable with CKD, transient Pre-renal picture. continue epo for anemia Results wbc still high, continue present Result Diagram: 02/06/17 0611 02/06/17 0611 Results 24 hrs Laboratory Tests Test 02/06/17 06:11 Anion Gap 19 H Basophils # 0.0 Basophils % 0.1 Blood Urea Nitrogen 79 H Calcium Level 8.5 Carbon Dioxide Level 22 Chloride Level 106 Creatinine 2.71 H Eosinophils # 0.1 Eosinophils % 0.9 Glucose Level 99 Hematocrit 31.6 L Hemoglobin 10.4 L Lymphocytes # 2.6 Lymphocytes % 15.9 Mean Corpuscular Hemoglobin 31.2 Mean Corpuscular Hemoglobin Concent 32.9 Mean Corpuscular Volume 94.9 Mean Platelet Volume 9.5 Monocytes # 1.3 H Monocytes % 8.1 Neutrophils # 12.0 H Neutrophils % 73.2 Nucleated Red Blood Cells # 0.0 Nucleated Red Blood Cells % 0.2 H Platelet Count 346 Potassium Level 3.8 Red Blood Count 3.33 L Red Cell Distribution Width 16.6 H Sodium Level 143 White Blood Count 16.4 H Medications Medications Current Medications Acetaminophen (Tylenol Tab) 650 mg Q4H PRN PO PAIN AND OR ELEVATED TEMP Last administered on 01/29/17 18:54; Admin Dose 650 MG; Start 01/29/17 at 05:30 Guaifenesin/ Codeine Phosphate (Robitussin Ac Liquid Cup) 10 ml Q4H PRN PO COUGH Last administered on 02/01/17 01:26; Admin Dose 10 ML; Start 01/29/17 at 05:30 Atorvastatin Calcium (Lipitor) 10 mg HS PO Last administered on 02/06/17 20:44 ; Admin Dose 10 MG; Start 01/29/17 at 21:00 Pantoprazole (Protonix Tab) 40 mg DAILY@06 PO Last administered on 02/06/17 06 :15; Admin Dose 40 MG; Start 01/29/17 at 16:00 Epoetin Larry (Epogen (Non Esrd/Non Oncology)) 3,000 units MoWeFr@17 SC Last administered on 02/05/17 16:30; Admin Dose 3,000 UNITS; Start 01/31/17 at 17:00 Aspirin (Ecotrin) 325 mg DAILY PO Last administered on 02/06/17 08:15; Admin Dose 325 MG; Start 01/31/17 at 09:00 Diltiazem HCl (Cardizem Iv) 5 mg Q4 PRN IV HR>110 Hold SBP<100; Start 01/30/17 at 20:30 IV Flush (NS 10 ml) 10 ml PRN PRN IV FLUSH LINE; Start 01/31/17 at 17:30 Oxycodone/ Acetaminophen (Percocet (5/ 325)) 1 tab Q4H PRN PO PAIN Last administered on 02/05/17 22:16; Admin Dose 1 TAB; Start 02/01/17 at 07:30 Levofloxacin (Levaquin) 500 mg Q2D@06 PO Last administered on 02/06/17 06:20; Admin Dose 500 MG; Start 02/02/17 at 06:00 Methylprednisolone Sodium Succinate 20 mg 20 mg Q12 IV Last administered on 20:45; Admin Dose 20 MG; Start 02/02/17 at 09:00 Piperacillin Sod/ Tazobactam Sod (Zosyn 2.25gm/ 50ml (Pmx)) 50 ml @ 100 mls/hr Q8 IVPB Last administered on 02/06/17 23:18; Admin Dose 100 MLS/HR; Start 10/10 at 22:00 Nitroglycerin (Nitroglycerin (Sl Tab) 0.4 Mg) 1 tab Q5M PRN SL ANGINA; Start at 14:30 Ondansetron HCl (Zofran Tab) 4 mg Q6H PRN PO NAUSEA AND/OR VOMITING; Start 11/09 at 14:30 Diphenhydramine HCl (Benadryl) 50 mg Q6H PRN PO ALLERGIC REACTION Last administered on 02/06/17 00:41; Admin Dose 50 MG; Start 02/02/17 at 22:30 Isosorbide Dinitrate (Isordil) 10 mg TID PO Last administered on 02/06/17 20: 49; Admin Dose 10 MG; Start 02/03/17 at 15:30 Al Hydrox/Mg Hydrox/Simethicone (Mag-Al Plus) 30 ml Q6H PRN PO GASTROINTESTINAL UPSET; Start 02/03/17 at 15:30 Benazepril HCl (Lotensin) 20 mg BID PO Last administered on 02/06/17 20:45; Admin Dose 20 MG; Start 02/03/17 at 21:00 Metoprolol Tartrate (Lopressor) 25 mg BID PO Last administered on 02/05/17 16: 28; Admin Dose 25 MG; Start 02/05/17 at 16:00 Heparin Sodium (Porcine) (Heparin (5000 Units/0.5 ml)) 5,000 unit BID SC Last administered on 02/06/17 20:47; Admin Dose 5,000 UNIT; Start 02/05/17 at 16:00 CLAUDIA MITCHELL MD Feb 06, 2017 23:40 CLAUDIA MITCHELL MD Feb 06, 2017 23:40
[2017-02-07] VITALS (13 sets, daily range): BP systolic 110–134; BP diastolic 56–61; PULSE 67–155; RESP 17–19
[2017-02-07] MEDS: DIPHENHYDRAMINE 50 MG CAP PO PRN ×2 (01:17→22:26)
[2017-02-07] MEDS: PIPER-TAZO 2.25 GM (PMX) 50 ML IVPB SCH ×3 (06:50→22:15)
[2017-02-07] MEDS: PANTOPRAZOLE (EC) 40 MG TAB PO SCH (06:50)
[2017-02-07 07:35] LABS: ADD SCAN DIFF NO
[2017-02-07 07:44] LABS: BASOPHILS % 0.1 % (0.0-2.0); EOSINOPHILS % 0.1 % (0.0-7.0); HEMOGLOBIN 9.9 g/dl (12.0-16.0); LYMPHOCYTES # 1.3 10^3/ul (0.8-2.9); MEAN CORPUSCULAR HEMOGLOBIN 30.8 pg (29.0-33.0); MEAN CORPUSCULAR HGB CONC 31.9 g/dl (32.0-37.0); MEAN CORPUSCULAR VOLUME 96.6 fl (82.0-101.0); MEAN PLATELET VOLUME 9.8 fl (7.4-10.4); MONOCYTE # 1.3 10^3/ul (0.3-0.9); MONOCYTES % 6.8 % (0.0-11.0); NEUTROPHIL # 15.7 10^3/ul (1.6-7.5); NEUTROPHILS % 83.3 % (39.0-77.0); NUCLEATED RED BLOOD CELLS% 0.1 /100WBC (0.0-0.0); PLATELET COUNT 339 10^3/UL (140-415); RED BLOOD COUNT 3.21 10^6/ul (4.20-5.40); RED CELL DISTRIBUTION WIDTH 16.8 % (11.5-14.5); WHITE BLOOD COUNT 18.8 10^3/ul (4.8-10.8)
[2017-02-07] MEDS: ALBUTEROL/IPRATROPIUM (NEB) 3 ML AMP HHN SCH ×3 (07:59→20:12)
[2017-02-07 08:08] LABS: POTASSIUM 4.2 mmol/L (3.5-5.1)
[2017-02-07 08:11] LABS: CREATININE 2.58 mg/dl (0.44-1.00)
[2017-02-07 08:12] LABS: CALCIUM 8.4 mg/dl (8.4-10.2)
[2017-02-07] MEDS: CALCIUM CARBONATE 500 MG CHEW TAB PO SCH ×3 (08:22→17:58)
[2017-02-07] MEDS: BENAZEPRIL 20 MG TAB PO SCH ×2 (08:23→20:52)
[2017-02-07] MEDS: ISOSORBIDE DINITRATE 10 MG TAB PO SCH ×3 (08:23→20:52)
[2017-02-07] MEDS: METHYLPREDNISOLONE 40 MG INJ IV SCH ×2 (08:23→20:51)
[2017-02-07] MEDS: ASPIRIN (EC) 325 MG TAB PO SCH (08:24)
[2017-02-07] MEDS: METOPROLOL 50 MG TAB PO SCH ×2 (08:25→20:52)
[2017-02-07] MEDS: HEPARIN 5,000 UNIT/0.5 ML SYG SC SCH ×2 (08:28→20:54)
--- NOTE | 2017-02-07 13:45 | CONS ---
Date/Time of Note Date/Time of Note DATE: 02/07/17 TIME: 13:43 Assessment/Plan Assessment/Plan Additional Assessment/Plan 86 yo female with 1) Acute Bronchitis 2) COPD Exacerbation 3) CKD Likely Stage IV 4) Anemia, Chronic Disease 5) Pre Renal Azotemia Pt has component of Pre-renal Azotemia in the setting of Diuretic Rx, IV lasix...Also Steroid Rx may be contributing as well Overall Cr Stable, Bun however continues to rise, Will order gentle IVF hydration. There is no indication for HD at this time. Consultation Date/Type/Reason Admit Date/Time Jan 31, 2017 at 15:05 Type of Consultation: Nephrology Referring Provider: LOREN ROSE MD 24 HR Interval Summary Free Text/Dictation Doing well, working with PT Constitutional: No requiring O2 Exam/Review of Systems Vital Signs Vitals Vital Signs Date Time Temp Pulse Resp B/P Pulse Ox O2 Delivery O2 Flow Rate FiO2 02/07/17 12:49 67 02/07/17 11:20 98.2 19 132/61 99 02/07/17 07:59 21 02/05/17 02:39 Room Air 02/04/17 08:10 2.0 Intake and Output 02/06/17 02/06/17 02/07/17 15:00 23:00 07:00 Intake Total 500 ml 500 ml 50 ml Balance 500 ml 500 ml 50 ml Exam Constitutional: alert, oriented, No distress ENMT: mucosa pink and moist Respiratory: No labored breathing Gastrointestinal: soft 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: nl mental status, No lethargic Skin: No diaphoresis Results Result Diagram: 02/07/1770402/07/17704 Results 24 hrs Laboratory Tests Test 02/07/17 07:05 Anion Gap 19 H Basophils # 0.0 Basophils % 0.1 Blood Urea Nitrogen 84 H Calcium Level 8.4 Carbon Dioxide Level 21 Chloride Level 107 Creatinine 2.58 H Eosinophils # 0.0 Eosinophils % 0.1 Glucose Level 137 Hematocrit 31.0 L Hemoglobin 9.9 L Lymphocytes # 1.3 Lymphocytes % 7.0 L Mean Corpuscular Hemoglobin 30.8 Mean Corpuscular Hemoglobin Concent 31.9 L Mean Corpuscular Volume 96.6 Mean Platelet Volume 9.8 Monocytes # 1.3 H Monocytes % 6.8 Neutrophils # 15.7 H Neutrophils % 83.3 H Nucleated Red Blood Cells # 0.0 Nucleated Red Blood Cells % 0.1 H Platelet Count 339 Potassium Level 4.2 Red Blood Count 3.21 L Red Cell Distribution Width 16.8 H Sodium Level 143 White Blood Count 18.8 H Medications Medications Current Medications Acetaminophen (Tylenol Tab) 650 mg Q4H PRN PO PAIN AND OR ELEVATED TEMP Last administered on 01/29/17 18:54; Admin Dose 650 MG; Start 01/29/17 at 05:30 Guaifenesin/ Codeine Phosphate (Robitussin Ac Liquid Cup) 10 ml Q4H PRN PO COUGH Last administered on 02/01/17 01:26; Admin Dose 10 ML; Start 01/29/17 at 05:30 Atorvastatin Calcium (Lipitor) 10 mg HS PO Last administered on 02/06/17 20:44 ; Admin Dose 10 MG; Start 01/29/17 at 21:00 Pantoprazole (Protonix Tab) 40 mg DAILY@06 PO Last administered on 02/07/17 06 :50; Admin Dose 40 MG; Start 01/29/17 at 16:00 Epoetin Larry (Epogen (Non Esrd/Non Oncology)) 3,000 units MoWeFr@17 SC Last administered on 02/05/17 16:30; Admin Dose 3,000 UNITS; Start 01/31/17 at 17:00 Aspirin (Ecotrin) 325 mg DAILY PO Last administered on 02/07/17 08:24; Admin Dose 325 MG; Start 01/31/17 at 09:00 Diltiazem HCl (Cardizem Iv) 5 mg Q4 PRN IV HR>110 Hold SBP<100; Start 01/30/17 at 20:30 IV Flush (NS 10 ml) 10 ml PRN PRN IV FLUSH LINE; Start 01/31/17 at 17:30 Oxycodone/ Acetaminophen (Percocet (5/ 325)) 1 tab Q4H PRN PO PAIN Last administered on 02/05/17 22:16; Admin Dose 1 TAB; Start 02/01/17 at 07:30 Levofloxacin (Levaquin) 500 mg Q2D@06 PO Last administered on 02/06/17 06:20; Admin Dose 500 MG; Start 02/02/17 at 06:00 Methylprednisolone Sodium Succinate 20 mg 20 mg Q12 IV Last administered on 08:23; Admin Dose 20 MG; Start 02/02/17 at 09:00 Piperacillin Sod/ Tazobactam Sod (Zosyn 2.25gm/ 50ml (Pmx)) 50 ml @ 100 mls/hr Q8 IVPB Last administered on 02/07/17 06:50; Admin Dose 100 MLS/HR; Start 10/10 at 22:00 Nitroglycerin (Nitroglycerin (Sl Tab) 0.4 Mg) 1 tab Q5M PRN SL ANGINA; Start at 14:30 Ondansetron HCl (Zofran Tab) 4 mg Q6H PRN PO NAUSEA AND/OR VOMITING; Start 11/09 at 14:30 Diphenhydramine HCl (Benadryl) 50 mg Q6H PRN PO ALLERGIC REACTION Last administered on 02/07/17 01:17; Admin Dose 50 MG; Start 02/02/17 at 22:30 Isosorbide Dinitrate (Isordil) 10 mg TID PO Last administered on 02/07/17 12: 12; Admin Dose 10 MG; Start 02/03/17 at 15:30 Al Hydrox/Mg Hydrox/Simethicone (Mag-Al Plus) 30 ml Q6H PRN PO GASTROINTESTINAL UPSET; Start 02/03/17 at 15:30 Benazepril HCl (Lotensin) 20 mg BID PO Last administered on 02/07/17 08:23; Admin Dose 20 MG; Start 02/03/17 at 21:00 Metoprolol Tartrate (Lopressor) 25 mg BID PO Last administered on 02/05/17 16: 28; Admin Dose 25 MG; Start 02/05/17 at 16:00 Heparin Sodium (Porcine) (Heparin (5000 Units/0.5 ml)) 5,000 unit BID SC Last administered on 02/06/17 20:47; Admin Dose 5,000 UNIT; Start 02/05/17 at 16:00 ERIN KOWALSKI MD Feb 07, 2017 13:45
[2017-02-07] MEDS ORDERED: SOD CHLORIDE 0.45% 1,000 ML IV SCH (14:00)
[2017-02-07] MEDS: GUAIFENESIN/CODEINE 5ML CUP PO PRN (17:58)
[2017-02-07] MEDS: EPOETIN 3000 UNITS/ML (NON ESRD/NON ONCOLOGY) SC SCH (18:01)
--- NOTE | 2017-02-07 18:09 | CONS ---
Date/Time of Note Date/Time of Note DATE: 02/07/17 TIME: 17:58 Assessment/Plan Assessment/Plan Chief Complaint/Hosp Course IMPRESSION: 1. Atrial fibrillation, not currently on systemic anticoagulation but on asa, rate controlled and currently in SR/SB-Had recurrent AF/AFL to 150 after patient refused BB today 2. Shortness of breath, assess for congestive heart failure. 3. Diastolic dysfunction by 2D echo this admission.-CHF by cxr 02/01 4. Hypertension. 5. Possible chronic obstructive pulmonary disease. 6. Possible bronchitis. 7. Possible pneumonia. 8. Dyslipidemia. 9. Chronic kidney disease. 10. Anemia. 11. Leukocytosis 12. Chest pain-improved/negative troponin x 2/NO changes on ECG 14. 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 Recc: -Tele -serial ecg;'s -Patient receiving IVF hydration with lasix held per renal following elevated BUN and thus will follow volume status closely -Continue asa/statin/isordil -Continue steroids/bronchodilators/abx's -Continue SQ heparin -EP for PPM eval Problems: Consultation Date/Type/Reason Admit Date/Time Jan 31, 2017 at 15:05 Initial Consult Date 01/30/2017 Type of Consultation: Cardiology Reason for Consultation cardiac arrythmia Referring Provider: LOREN ROSE MD Exam/Review of Systems Vital Signs Vitals Vital Signs Date Time Temp Pulse Resp B/P Pulse Ox O2 Delivery O2 Flow Rate FiO2 02/07/17 16:30 68 02/07/17 15:27 98.4 18 134/61 96 02/07/17 14:58 21 02/05/17 02:39 Room Air 02/04/17 08:10 2.0 Intake and Output 02/06/17 02/06/17 02/07/17 15:00 23:00 07:00 Intake Total 500 ml 500 ml 50 ml Balance 500 ml 500 ml 50 ml Exam Review of Systems: CONSTITUTIONAL: No fevers, chills. PULMONARY: mild sob and cough CARDIOVASCULAR: No chest pain/palpitations GASTROINTESTINAL: No nausea/vomiting. GENITOURINARY: No hematuria/dysuria. MUSCULOSKELETAL: No myagias/arthalgias. PSYCHIATRIC: The patient denies depression. NEUROLOGIC: No weakness Constitutional: alert Psych: no complaints Head: normocephalic ENMT: mucosa pink and moist Neck: jvd (9 cm water), supple Respiratory: diminished breath sounds (at bases/B) Cardiovascular: regular rate and rhythm Gastrointestinal: non-tender, soft Musculoskeletal: muscle tone (normal) Extremities: other 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: other (No focal deficits) Results Result Diagram: 02/07/1770402/07/17 07 Results 24 hrs Laboratory Tests Test 02/07/17 07:05 Anion Gap 19 H Basophils # 0.0 Basophils % 0.1 Blood Urea Nitrogen 84 H Calcium Level 8.4 Carbon Dioxide Level 21 Chloride Level 107 Creatinine 2.58 H Eosinophils # 0.0 Eosinophils % 0.1 Glucose Level 137 Hematocrit 31.0 L Hemoglobin 9.9 L Lymphocytes # 1.3 Lymphocytes % 7.0 L Mean Corpuscular Hemoglobin 30.8 Mean Corpuscular Hemoglobin Concent 31.9 L Mean Corpuscular Volume 96.6 Mean Platelet Volume 9.8 Monocytes # 1.3 H Monocytes % 6.8 Neutrophils # 15.7 H Neutrophils % 83.3 H Nucleated Red Blood Cells # 0.0 Nucleated Red Blood Cells % 0.1 H Platelet Count 339 Potassium Level 4.2 Red Blood Count 3.21 L Red Cell Distribution Width 16.8 H Sodium Level 143 White Blood Count 18.8 H Medications Medications Current Medications Acetaminophen (Tylenol Tab) 650 mg Q4H PRN PO PAIN AND OR ELEVATED TEMP Last administered on 01/29/17 18:54; Admin Dose 650 MG; Start 01/29/17 at 05:30 Guaifenesin/ Codeine Phosphate (Robitussin Ac Liquid Cup) 10 ml Q4H PRN PO COUGH Last administered on 02/01/17 01:26; Admin Dose 10 ML; Start 01/29/17 at 05:30 Atorvastatin Calcium (Lipitor) 10 mg HS PO Last administered on 02/06/17 20:44 ; Admin Dose 10 MG; Start 01/29/17 at 21:00 Pantoprazole (Protonix Tab) 40 mg DAILY@06 PO Last administered on 02/07/17 06 :50; Admin Dose 40 MG; Start 01/29/17 at 16:00 Epoetin Larry (Epogen (Non Esrd/Non Oncology)) 3,000 units MoWeFr@17 SC Last administered on 02/05/17 16:30; Admin Dose 3,000 UNITS; Start 01/31/17 at 17:00 Aspirin (Ecotrin) 325 mg DAILY PO Last administered on 02/07/17 08:24; Admin Dose 325 MG; Start 01/31/17 at 09:00 Diltiazem HCl (Cardizem Iv) 5 mg Q4 PRN IV HR>110 Hold SBP<100; Start 01/30/17 at 20:30 IV Flush (NS 10 ml) 10 ml PRN PRN IV FLUSH LINE; Start 01/31/17 at 17:30 Oxycodone/ Acetaminophen (Percocet (5/ 325)) 1 tab Q4H PRN PO PAIN Last administered on 02/05/17 22:16; Admin Dose 1 TAB; Start 02/01/17 at 07:30 Levofloxacin (Levaquin) 500 mg Q2D@06 PO Last administered on 02/06/17 06:20; Admin Dose 500 MG; Start 02/02/17 at 06:00 Methylprednisolone Sodium Succinate 20 mg 20 mg Q12 IV Last administered on 08:23; Admin Dose 20 MG; Start 02/02/17 at 09:00 Piperacillin Sod/ Tazobactam Sod (Zosyn 2.25gm/ 50ml (Pmx)) 50 ml @ 100 mls/hr Q8 IVPB Last administered on 02/07/17 14:55; Admin Dose 100 MLS/HR; Start 10/10 at 22:00 Nitroglycerin (Nitroglycerin (Sl Tab) 0.4 Mg) 1 tab Q5M PRN SL ANGINA; Start at 14:30 Ondansetron HCl (Zofran Tab) 4 mg Q6H PRN PO NAUSEA AND/OR VOMITING; Start 11/09 at 14:30 Diphenhydramine HCl (Benadryl) 50 mg Q6H PRN PO ALLERGIC REACTION Last administered on 02/07/17 01:17; Admin Dose 50 MG; Start 02/02/17 at 22:30 Isosorbide Dinitrate (Isordil) 10 mg TID PO Last administered on 02/07/17 12: 12; Admin Dose 10 MG; Start 02/03/17 at 15:30 Al Hydrox/Mg Hydrox/Simethicone (Mag-Al Plus) 30 ml Q6H PRN PO GASTROINTESTINAL UPSET; Start 02/03/17 at 15:30 Benazepril HCl (Lotensin) 20 mg BID PO Last administered on 02/07/17 08:23; Admin Dose 20 MG; Start 02/03/17 at 21:00 Metoprolol Tartrate (Lopressor) 25 mg BID PO Last administered on 02/05/17 16: 28; Admin Dose 25 MG; Start 02/05/17 at 16:00 Heparin Sodium (Porcine) 5000 unit 5,000 unit BID SC Last administered on 20:47; Admin Dose 5,000 UNIT; Start 02/05/17 at 16:00 Sodium Chloride (1/2 NS) 1,000 ml @ 50 mls/hr Q20H IV Last administered on 14:54; Admin Dose 50 MLS/HR; Start 02/07/17 at 14:00; Stop 02/08/17 at 09:59 ALVINA GARCIA 17, 2017 18:09
--- NOTE | 2017-02-07 18:39 | PN ---
Date/Time of Note Date/Time of Note DATE: 02/07/17 TIME: 18:37 Assessment/Plan VTE Prophylaxis VTE Prophylaxis Intervention: SCD's Lines/Catheters IV Catheter Type (from [facility]): PICC Line Central line still needed: Yes Urinary Cath still in place: No Assessment/Plan Chief Complaint/Hosp Course ASSESSMENT AND PLAN: - Possible bronchitis versus early pneumonia. Continue Levaquin, continue breathing treatments. - Ecoli urinary tract infection. Continue Levaquin. - Diastolic dysfunction congestive heart failure. Dr. Iraheta is following and cardiology consultation, continue gentle diuresis. - Atrial fibrillation at controlled rate. Continue aspirin and metoprolol. - Hypertension. Continue metoprolol and benazepril. - Aortic stenosis. - Hyperlipidemia. Continue statin. - Possible chronic obstructive pulmonary disease exacerbation. Continue patient on breathing treatments, start the patient on steroids. Continue supplemental oxygen. - Stage IV chronic kidney disease. Kidney ultrasound is consistent with chronic kidney disease. Dr. Gordon is following in nephrology consultation. - Gout. Continue allopurinol. - Anemia of chronic disease, continue Epogen. Continue Lovenox for deep venous thrombosis prophylaxis and Protonix for peptic ulcer disease prophylaxis. Further recommendations based on clinical course. Plan of care discussed with Dr. Olivier. Problems: Subjective 24 Hr Interval Summary Free Text/Dictation Patient had atrial fibrillation with rapid ventricular response during the night , patient reviews metoprolol DOS before going to bed, currently in atrial fibrillation at controlled rate, denies shortness of breath, continue telemetry monitoring. Medication adherence is strongly advised. Exam/Review of Systems Vital Signs Vitals Vital Signs Date Time Temp Pulse Resp B/P Pulse Ox O2 Delivery O2 Flow Rate FiO2 02/07/17 16:30 68 02/07/17 15:27 98.4 18 134/61 96 02/07/17 14:58 21 02/05/17 02:39 Room Air 02/04/17 08:10 2.0 Intake and Output 02/06/17 02/06/17 02/07/17 15:00 23:00 07:00 Intake Total 500 ml 500 ml 50 ml Balance 500 ml 500 ml 50 ml Exam Constitutional: alert, oriented Psych: no complaints Head: atraumatic, normocephalic Eyes: nl conjunctiva Neck: non-tender, supple Respiratory: other (Diminished at the bases) Cardiovascular: other (Irregularly irregular rhythm) Gastrointestinal: non-tender, soft Musculoskeletal: nl extremities to inspection, nl gait and stance Extremities: normal pulses 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: CUSTOMER ACCOUNT COORDINATOR II-XII intact Results Result Diagram: 02/07/1770402/07/17 07 Results 24 hrs Laboratory Tests Test 02/07/17 07:05 Anion Gap 19 H Basophils # 0.0 Basophils % 0.1 Blood Urea Nitrogen 84 H Calcium Level 8.4 Carbon Dioxide Level 21 Chloride Level 107 Creatinine 2.58 H Eosinophils # 0.0 Eosinophils % 0.1 Glucose Level 137 Hematocrit 31.0 L Hemoglobin 9.9 L Lymphocytes # 1.3 Lymphocytes % 7.0 L Mean Corpuscular Hemoglobin 30.8 Mean Corpuscular Hemoglobin Concent 31.9 L Mean Corpuscular Volume 96.6 Mean Platelet Volume 9.8 Monocytes # 1.3 H Monocytes % 6.8 Neutrophils # 15.7 H Neutrophils % 83.3 H Nucleated Red Blood Cells # 0.0 Nucleated Red Blood Cells % 0.1 H Platelet Count 339 Potassium Level 4.2 Red Blood Count 3.21 L Red Cell Distribution Width 16.8 H Sodium Level 143 White Blood Count 18.8 H Medications Medications Current Medications Acetaminophen (Tylenol Tab) 650 mg Q4H PRN PO PAIN AND OR ELEVATED TEMP Last administered on 01/29/17 18:54; Admin Dose 650 MG; Start 01/29/17 at 05:30 Guaifenesin/ Codeine Phosphate (Robitussin Ac Liquid Cup) 10 ml Q4H PRN PO COUGH Last administered on 02/07/17 17:58; Admin Dose 10 ML; Start 01/29/17 at 05:30 Atorvastatin Calcium (Lipitor) 10 mg HS PO Last administered on 02/06/17 20:44 ; Admin Dose 10 MG; Start 01/29/17 at 21:00 Pantoprazole (Protonix Tab) 40 mg DAILY@06 PO Last administered on 02/07/17 06 :50; Admin Dose 40 MG; Start 01/29/17 at 16:00 Epoetin Larry (Epogen (Non Esrd/Non Oncology)) 3,000 units MoWeFr@17 SC Last administered on 02/07/17 18:01; Admin Dose 3,000 UNITS; Start 01/31/17 at 17:00 Aspirin (Ecotrin) 325 mg DAILY PO Last administered on 02/07/17 08:24; Admin Dose 325 MG; Start 01/31/17 at 09:00 Diltiazem HCl (Cardizem Iv) 5 mg Q4 PRN IV HR>110 Hold SBP<100; Start 01/30/17 at 20:30 IV Flush (NS 10 ml) 10 ml PRN PRN IV FLUSH LINE; Start 01/31/17 at 17:30 Oxycodone/ Acetaminophen (Percocet (5/ 325)) 1 tab Q4H PRN PO PAIN Last administered on 02/05/17 22:16; Admin Dose 1 TAB; Start 02/01/17 at 07:30 Levofloxacin (Levaquin) 500 mg Q2D@06 PO Last administered on 02/06/17 06:20; Admin Dose 500 MG; Start 02/02/17 at 06:00 Methylprednisolone Sodium Succinate 20 mg 20 mg Q12 IV Last administered on 08:23; Admin Dose 20 MG; Start 02/02/17 at 09:00 Piperacillin Sod/ Tazobactam Sod (Zosyn 2.25gm/ 50ml (Pmx)) 50 ml @ 100 mls/hr Q8 IVPB Last administered on 02/07/17 14:55; Admin Dose 100 MLS/HR; Start 10/10 at 22:00 Nitroglycerin (Nitroglycerin (Sl Tab) 0.4 Mg) 1 tab Q5M PRN SL ANGINA; Start at 14:30 Ondansetron HCl (Zofran Tab) 4 mg Q6H PRN PO NAUSEA AND/OR VOMITING; Start 11/09 at 14:30 Diphenhydramine HCl (Benadryl) 50 mg Q6H PRN PO ALLERGIC REACTION Last administered on 02/07/17 01:17; Admin Dose 50 MG; Start 02/02/17 at 22:30 Isosorbide Dinitrate (Isordil) 10 mg TID PO Last administered on 02/07/17 12: 12; Admin Dose 10 MG; Start 02/03/17 at 15:30 Al Hydrox/Mg Hydrox/Simethicone (Mag-Al Plus) 30 ml Q6H PRN PO GASTROINTESTINAL UPSET; Start 02/03/17 at 15:30 Benazepril HCl (Lotensin) 20 mg BID PO Last administered on 02/07/17 08:23; Admin Dose 20 MG; Start 02/03/17 at 21:00 Metoprolol Tartrate (Lopressor) 25 mg BID PO Last administered on 02/05/17 16: 28; Admin Dose 25 MG; Start 02/05/17 at 16:00 Heparin Sodium (Porcine) 5000 unit 5,000 unit BID SC Last administered on 20:47; Admin Dose 5,000 UNIT; Start 02/05/17 at 16:00 Sodium Chloride (1/2 NS) 1,000 ml @ 50 mls/hr Q20H IV Last administered on 14:54; Admin Dose 50 MLS/HR; Start 02/07/17 at 14:00; Stop 02/08/17 at 09:59 EDWAR VARGAS Feb 07, 2017 18:39
[2017-02-07] MEDS: ATORVASTATIN 10 MG TAB PO SCH (20:51)
[2017-02-07] MEDS: OXYCODONE/ACETAMINOPHEN (5/325) TAB PO PRN (22:26)
[2017-02-08] VITALS (12 sets, daily range): BP systolic 135–157; BP diastolic 63–72; PULSE 56–69; RESP 16–21
[2017-02-08] MEDS: PIPER-TAZO 2.25 GM (PMX) 50 ML IVPB SCH ×3 (05:55→21:44)
[2017-02-08] MEDS: PANTOPRAZOLE (EC) 40 MG TAB PO SCH (05:56)
[2017-02-08] MEDS: LEVOFLOXACIN 500 MG TAB PO SCH (05:56)
[2017-02-08 06:27] LABS: ADD SCAN DIFF NO
[2017-02-08 06:48] LABS: BASOPHILS % 0.1 % (0.0-2.0); HEMATOCRIT 29.5 % (37.0-47.0); HEMOGLOBIN 9.5 g/dl (12.0-16.0); MEAN CORPUSCULAR HEMOGLOBIN 30.8 pg (29.0-33.0); MEAN CORPUSCULAR HGB CONC 32.2 g/dl (32.0-37.0); MEAN CORPUSCULAR VOLUME 95.8 fl (82.0-101.0); MONOCYTE # 0.6 10^3/ul (0.3-0.9); MONOCYTES % 3.2 % (0.0-11.0); NEUTROPHIL # 15.4 10^3/ul (1.6-7.5); NEUTROPHILS % 88.6 % (39.0-77.0); NUCLEATED RED BLOOD CELLS% 0.2 /100WBC (0.0-0.0); PLATELET COUNT 291 10^3/UL (140-415); RED BLOOD COUNT 3.08 10^6/ul (4.20-5.40); RED CELL DISTRIBUTION WIDTH 17.2 % (11.5-14.5); WHITE BLOOD COUNT 17.3 10^3/ul (4.8-10.8)
[2017-02-08 07:09] LABS: POTASSIUM 4.9 mmol/L (3.5-5.1)
[2017-02-08 07:11] LABS: CREATININE 2.34 mg/dl (0.44-1.00)
[2017-02-08 07:12] LABS: CALCIUM 8.8 mg/dl (8.4-10.2)
[2017-02-08] MEDS: ALBUTEROL/IPRATROPIUM (NEB) 3 ML AMP HHN SCH ×3 (07:25→20:03)
[2017-02-08] MEDS: METHYLPREDNISOLONE 40 MG INJ IV SCH ×2 (10:38→20:47)
[2017-02-08] MEDS: BENAZEPRIL 20 MG TAB PO SCH ×2 (10:39→20:50)
[2017-02-08] MEDS: CALCIUM CARBONATE 500 MG CHEW TAB PO SCH ×3 (10:40→18:35)
[2017-02-08] MEDS: ISOSORBIDE DINITRATE 10 MG TAB PO SCH ×3 (10:40→20:48)
[2017-02-08] MEDS: AMIODARONE 200 MG TAB PO SCH (10:40)
[2017-02-08] MEDS: ASPIRIN (EC) 325 MG TAB PO SCH (10:41)
[2017-02-08] MEDS: METOPROLOL 50 MG TAB PO SCH ×2 (10:48→20:49)
--- NOTE | 2017-02-08 10:52 | CONS ---
Date/Time of Note Date/Time of Note DATE: 02/08/17 TIME: 10:51 Assessment/Plan Assessment/Plan Additional Assessment/Plan 86 yo female with 1) Acute Bronchitis 2) COPD Exacerbation 3) CKD Likely Stage IV 4) Anemia, Chronic Disease 5) Pre Renal Azotemia Pt has component of Pre-renal Azotemia in the setting of Diuretic Rx, IV lasix...Also Steroid Rx may be contributing as well Will DC Diuretic Rx at this time and cont to monitor Overall Cr Stable, If Bun continues to rise, encourage increased fluid intake, will hold off on IVFs at this time. There is no indication for HD at this time. Consultation Date/Type/Reason Admit Date/Time Jan 31, 2017 at 15:05 Type of Consultation: Renal Referring Provider: LOREN ROSE MD 24 HR Interval Summary Free Text/Dictation Doing well, NO SOB, Good UO Exam/Review of Systems Vital Signs Vitals Vital Signs Date Time Temp Pulse Resp B/P Pulse Ox O2 Delivery O2 Flow Rate FiO2 02/08/17 08:24 59 02/08/17 07:45 97.9 17 138/63 97 02/08/17 07:27 21 02/05/17 02:39 Room Air 02/04/17 08:10 2.0 Intake and Output 02/07/17 02/07/17 02/08/17 15:00 23:00 07:00 Intake Total 450 ml 800 ml 800 ml Balance 450 ml 800 ml 800 ml Exam Constitutional: No distress ENMT: mucosa pink and moist Neck: No jvd Respiratory: clear to auscultation Cardiovascular: regular rate and rhythm, No edema Gastrointestinal: non-tender, soft 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: nl mental status Results Result Diagram: 02/08/17 0555 02/08/17 0555 Results 24 hrs Laboratory Tests Test 02/08/17 05:55 Anion Gap 17 H Basophils # 0.0 Basophils % 0.1 Blood Urea Nitrogen 71 H Calcium Level 8.8 Carbon Dioxide Level 21 Chloride Level 109 Creatinine 2.34 H Eosinophils # 0.0 Eosinophils % 0.0 Glucose Level 120 Hematocrit 29.5 L Hemoglobin 9.5 L Lymphocytes # 1.0 Lymphocytes % 6.0 L Mean Corpuscular Hemoglobin 30.8 Mean Corpuscular Hemoglobin Concent 32.2 Mean Corpuscular Volume 95.8 Mean Platelet Volume 10.0 Monocytes # 0.6 Monocytes % 3.2 Neutrophils # 15.4 H Neutrophils % 88.6 H Nucleated Red Blood Cells # 0.0 Nucleated Red Blood Cells % 0.2 H Platelet Count 291 Potassium Level 4.9 Red Blood Count 3.08 L Red Cell Distribution Width 17.2 H Sodium Level 142 White Blood Count 17.3 H Medications Medications Current Medications Acetaminophen (Tylenol Tab) 650 mg Q4H PRN PO PAIN AND OR ELEVATED TEMP Last administered on 01/29/17 18:54; Admin Dose 650 MG; Start 01/29/17 at 05:30 Guaifenesin/ Codeine Phosphate (Robitussin Ac Liquid Cup) 10 ml Q4H PRN PO COUGH Last administered on 02/07/17 17:58; Admin Dose 10 ML; Start 01/29/17 at 05:30 Atorvastatin Calcium (Lipitor) 10 mg HS PO Last administered on 02/07/17 20:51 ; Admin Dose 10 MG; Start 01/29/17 at 21:00 Pantoprazole (Protonix Tab) 40 mg DAILY@06 PO Last administered on 02/08/17 05 :56; Admin Dose 40 MG; Start 01/29/17 at 16:00 Epoetin Larry (Epogen (Non Esrd/Non Oncology)) 3,000 units MoWeFr@17 SC Last administered on 02/07/17 18:01; Admin Dose 3,000 UNITS; Start 01/31/17 at 17:00 Aspirin (Ecotrin) 325 mg DAILY PO Last administered on 02/08/17 10:41; Admin Dose 325 MG; Start 01/31/17 at 09:00 Diltiazem HCl (Cardizem Iv) 5 mg Q4 PRN IV HR>110 Hold SBP<100; Start 01/30/17 at 20:30 IV Flush (NS 10 ml) 10 ml PRN PRN IV FLUSH LINE; Start 01/31/17 at 17:30 Oxycodone/ Acetaminophen (Percocet (5/ 325)) 1 tab Q4H PRN PO PAIN Last administered on 02/07/17 22:26; Admin Dose 1 TAB; Start 02/01/17 at 07:30 Levofloxacin (Levaquin) 500 mg Q2D@06 PO Last administered on 02/08/17 05:56; Admin Dose 500 MG; Start 02/02/17 at 06:00 Methylprednisolone Sodium Succinate 20 mg 20 mg Q12 IV Last administered on 10:38; Admin Dose 20 MG; Start 02/02/17 at 09:00 Piperacillin Sod/ Tazobactam Sod (Zosyn 2.25gm/ 50ml (Pmx)) 50 ml @ 100 mls/hr Q8 IVPB Last administered on 02/08/17 05:55; Admin Dose 100 MLS/HR; Start 10/10 at 22:00 Nitroglycerin (Nitroglycerin (Sl Tab) 0.4 Mg) 1 tab Q5M PRN SL ANGINA; Start at 14:30 Ondansetron HCl (Zofran Tab) 4 mg Q6H PRN PO NAUSEA AND/OR VOMITING; Start 11/09 at 14:30 Diphenhydramine HCl (Benadryl) 50 mg Q6H PRN PO ALLERGIC REACTION Last administered on 02/07/17 22:26; Admin Dose 50 MG; Start 02/02/17 at 22:30 Isosorbide Dinitrate (Isordil) 10 mg TID PO Last administered on 02/08/17 10: 40; Admin Dose 10 MG; Start 02/03/17 at 15:30 Al Hydrox/Mg Hydrox/Simethicone (Mag-Al Plus) 30 ml Q6H PRN PO GASTROINTESTINAL UPSET; Start 02/03/17 at 15:30 Benazepril HCl (Lotensin) 20 mg BID PO Last administered on 02/08/17 10:39; Admin Dose 20 MG; Start 02/03/17 at 21:00 Metoprolol Tartrate (Lopressor) 25 mg BID PO Last administered on 02/08/17 10: 48; Admin Dose 25 MG; Start 02/05/17 at 16:00 Heparin Sodium (Porcine) (Heparin (5000 Units/0.5 ml)) 5,000 unit BID SC Last administered on 02/07/17 20:54; Admin Dose 5,000 UNIT; Start 02/05/17 at 16:00 Amiodarone HCl (Cordarone) 200 mg DAILY PO Last administered on 02/08/17 10:40 ; Admin Dose 200 MG; Start 02/08/17 at 09:00 ERIN KOWALSKI MD Feb 08, 2017 10:51
[2017-02-08] MEDS: HEPARIN 5,000 UNIT/0.5 ML SYG SC SCH ×2 (11:00→20:52)
--- NOTE | 2017-02-08 12:03 | PN ---
Date/Time of Note Date/Time of Note DATE: 02/08/17 TIME: 12:03 Assessment/Plan VTE Prophylaxis VTE Prophylaxis Intervention: other Lines/Catheters [facility] PICC Line Central line still needed: Yes Urinary Cath still in place: No Assessment/Plan Chief Complaint/Hosp Course - Possible bronchitis versus early pneumonia. Continue Levaquin, continue breathing treatments. - Ecoli urinary tract infection. Continue Levaquin. - Diastolic dysfunction congestive heart failure. Dr. Iraheta is following and cardiology consultation, continue gentle diuresis. - Atrial fibrillation at controlled rate. Continue aspirin and metoprolol. - Hypertension. Continue metoprolol and benazepril. - Aortic stenosis. - Hyperlipidemia. Continue statin. - Possible chronic obstructive pulmonary disease exacerbation. Continue patient on breathing treatments, start the patient on steroids. Continue supplemental oxygen. - Stage IV chronic kidney disease. Kidney ultrasound is consistent with chronic kidney disease. Dr. Gordon is following in nephrology consultation. - Gout. Continue allopurinol. - Anemia of chronic disease, continue Epogen. Problems: Subjective 24 Hr Interval Summary Free Text/Dictation Patient has no complaints Exam/Review of Systems Vital Signs Vitals Vital Signs Date Time Temp Pulse Resp B/P Pulse Ox O2 Delivery O2 Flow Rate FiO2 02/08/17 11:26 97.6 65 19 137/64 97 02/08/17 07:27 21 02/05/17 02:39 Room Air 02/04/17 08:10 2.0 Intake and Output 02/07/17 02/07/17 02/08/17 15:00 23:00 07:00 Intake Total 450 ml 800 ml 800 ml Balance 450 ml 800 ml 800 ml Exam Constitutional: well developed Head: atraumatic, normocephalic Neck: supple Respiratory: diminished breath sounds Cardiovascular: regular rate and rhythm Gastrointestinal: non-tender, soft Results Result Diagram: 02/08/17 0555 02/08/17 0555 Results 24 hrs Laboratory Tests Test 02/08/17 05:55 Anion Gap 17 H Basophils # 0.0 Basophils % 0.1 Blood Urea Nitrogen 71 H Calcium Level 8.8 Carbon Dioxide Level 21 Chloride Level 109 Creatinine 2.34 H Eosinophils # 0.0 Eosinophils % 0.0 Glucose Level 120 Hematocrit 29.5 L Hemoglobin 9.5 L Lymphocytes # 1.0 Lymphocytes % 6.0 L Mean Corpuscular Hemoglobin 30.8 Mean Corpuscular Hemoglobin Concent 32.2 Mean Corpuscular Volume 95.8 Mean Platelet Volume 10.0 Monocytes # 0.6 Monocytes % 3.2 Neutrophils # 15.4 H Neutrophils % 88.6 H Nucleated Red Blood Cells # 0.0 Nucleated Red Blood Cells % 0.2 H Platelet Count 291 Potassium Level 4.9 Red Blood Count 3.08 L Red Cell Distribution Width 17.2 H Sodium Level 142 White Blood Count 17.3 H Medications Medications Current Medications Acetaminophen (Tylenol Tab) 650 mg Q4H PRN PO PAIN AND OR ELEVATED TEMP Last administered on 01/29/17 18:54; Admin Dose 650 MG; Start 01/29/17 at 05:30 Guaifenesin/ Codeine Phosphate (Robitussin Ac Liquid Cup) 10 ml Q4H PRN PO COUGH Last administered on 02/07/17 17:58; Admin Dose 10 ML; Start 01/29/17 at 05:30 Atorvastatin Calcium (Lipitor) 10 mg HS PO Last administered on 02/07/17 20:51 ; Admin Dose 10 MG; Start 01/29/17 at 21:00 Pantoprazole (Protonix Tab) 40 mg DAILY@06 PO Last administered on 02/08/17 05 :56; Admin Dose 40 MG; Start 01/29/17 at 16:00 Epoetin Larry (Epogen (Non Esrd/Non Oncology)) 3,000 units MoWeFr@17 SC Last administered on 02/07/17 18:01; Admin Dose 3,000 UNITS; Start 01/31/17 at 17:00 Aspirin (Ecotrin) 325 mg DAILY PO Last administered on 02/08/17 10:41; Admin Dose 325 MG; Start 01/31/17 at 09:00 Diltiazem HCl (Cardizem Iv) 5 mg Q4 PRN IV HR>110 Hold SBP<100; Start 01/30/17 at 20:30 IV Flush (NS 10 ml) 10 ml PRN PRN IV FLUSH LINE; Start 01/31/17 at 17:30 Oxycodone/ Acetaminophen (Percocet (5/ 325)) 1 tab Q4H PRN PO PAIN Last administered on 02/07/17 22:26; Admin Dose 1 TAB; Start 02/01/17 at 07:30 Levofloxacin (Levaquin) 500 mg Q2D@06 PO Last administered on 02/08/17 05:56; Admin Dose 500 MG; Start 02/02/17 at 06:00 Methylprednisolone Sodium Succinate 20 mg 20 mg Q12 IV Last administered on 10:38; Admin Dose 20 MG; Start 02/02/17 at 09:00 Piperacillin Sod/ Tazobactam Sod (Zosyn 2.25gm/ 50ml (Pmx)) 50 ml @ 100 mls/hr Q8 IVPB Last administered on 02/08/17 05:55; Admin Dose 100 MLS/HR; Start 10/10 at 22:00 Nitroglycerin (Nitroglycerin (Sl Tab) 0.4 Mg) 1 tab Q5M PRN SL ANGINA; Start at 14:30 Ondansetron HCl (Zofran Tab) 4 mg Q6H PRN PO NAUSEA AND/OR VOMITING; Start 11/09 at 14:30 Diphenhydramine HCl (Benadryl) 50 mg Q6H PRN PO ALLERGIC REACTION Last administered on 02/07/17 22:26; Admin Dose 50 MG; Start 02/02/17 at 22:30 Isosorbide Dinitrate (Isordil) 10 mg TID PO Last administered on 02/08/17 10: 40; Admin Dose 10 MG; Start 02/03/17 at 15:30 Al Hydrox/Mg Hydrox/Simethicone (Mag-Al Plus) 30 ml Q6H PRN PO GASTROINTESTINAL UPSET; Start 02/03/17 at 15:30 Benazepril HCl (Lotensin) 20 mg BID PO Last administered on 02/08/17 10:39; Admin Dose 20 MG; Start 02/03/17 at 21:00 Metoprolol Tartrate (Lopressor) 25 mg BID PO Last administered on 02/08/17 10: 48; Admin Dose 25 MG; Start 02/05/17 at 16:00 Heparin Sodium (Porcine) (Heparin (5000 Units/0.5 ml)) 5,000 unit BID SC Last administered on 02/08/17 11:00; Admin Dose 5,000 UNIT; Start 02/05/17 at 16:00 Amiodarone HCl (Cordarone) 200 mg DAILY PO Last administered on 3/18/17at 10:40 ; Admin Dose 200 MG; Start 02/08/17 at 09:00 LAMONT BREWER Feb 08, 2017 12:03
--- NOTE | 2017-02-08 13:37 | CONS ---
Date/Time of Note Date/Time of Note DATE: 02/08/17 TIME: 13:34 Assessment/Plan Assessment/Plan Additional Assessment/Plan 1. Atrial fibrillation, not currently on systemic anticoagulation but on asa, rate controlled and currently in SR/SB-Had recurrent AF/AFL to 150 after patient refused BB today - NOW IN SINUS, RATE CONTROLLED. 2. Shortness of breath, assess for congestive heart failure- con't gentle diuresis. 3. Diastolic dysfunction by 2D echo this admission.-CHF by cxr 02/01 4. Hypertension- in better range now. 5. Possible chronic obstructive pulmonary disease- Rx as needed. 6. Possible bronchitis. 7. Possible pneumonia- ion anti-Bx. 8. Dyslipidemia. 9. Chronic kidney disease. 10. Anemia. 11. Leukocytosis 12. Chest pain-improved/negative troponin x 2/NO changes on ECG 14. BRadycardia-to 30's till recurrent-? Tachy-Twan syndrome 0- REVIEWED TRACINGS - SINUS BRASDY NOTED - no slow a. fib - hope pt is compliant with BB - will consider pacer Class II indication. Consultation Date/Type/Reason Admit Date/Time Jan 31, 2017 at 15:05 Type of Consultation: Renal Referring Provider: LOREN ROSE MD 24 HR Interval Summary Free Text/Dictation REVIEWED TRACINGS - SINUS TWAN NOTED - no slow a. fib - hope pt is compliant with BB - will consider pacer Class II indication. ROS: No fever, no chills, no nausea, no vomiting, no diarrhea/constipation No recent weight changes No chest pain, no PND, no orthopnea No dizziness, blurred vision No thirst, no heat or cold intolerance Exam/Review of Systems Vital Signs Vitals Vital Signs Date Time Temp Pulse Resp B/P Pulse Ox O2 Delivery O2 Flow Rate FiO2 02/08/17 12:41 64 02/08/17 11:26 97.6 19 137/64 97 02/08/17 07:27 21 02/05/17 02:39 Room Air 02/04/17 08:10 2.0 Intake and Output 02/07/17 02/07/17 02/08/17 15:00 23:00 07:00 Intake Total 450 ml 800 ml 800 ml Balance 450 ml 800 ml 800 ml Exam General: WN/WD/NAD, AOx 2-3 HEENT: Unicetric/atraumatic/EOMI (follow commands) NECK: JVD elevated, no thyromegaly Lymph: no lymphadenopathy HEART: regular with no S3, II/ systolic murmur at apex LUNGS: Coarse sounds ABD: soft, NT, ND, +BS : Intact Neuro: non focal SKIN: chronic changes EXT: trace edema Results Result Diagram: 02/08/17 0555 02/08/17 0555 Results 24 hrs Laboratory Tests Test 02/08/17 05:55 Anion Gap 17 H Basophils # 0.0 Basophils % 0.1 Blood Urea Nitrogen 71 H Calcium Level 8.8 Carbon Dioxide Level 21 Chloride Level 109 Creatinine 2.34 H Eosinophils # 0.0 Eosinophils % 0.0 Glucose Level 120 Hematocrit 29.5 L Hemoglobin 9.5 L Lymphocytes # 1.0 Lymphocytes % 6.0 L Mean Corpuscular Hemoglobin 30.8 Mean Corpuscular Hemoglobin Concent 32.2 Mean Corpuscular Volume 95.8 Mean Platelet Volume 10.0 Monocytes # 0.6 Monocytes % 3.2 Neutrophils # 15.4 H Neutrophils % 88.6 H Nucleated Red Blood Cells # 0.0 Nucleated Red Blood Cells % 0.2 H Platelet Count 291 Potassium Level 4.9 Red Blood Count 3.08 L Red Cell Distribution Width 17.2 H Sodium Level 142 White Blood Count 17.3 H Medications Medications Current Medications Acetaminophen (Tylenol Tab) 650 mg Q4H PRN PO PAIN AND OR ELEVATED TEMP Last administered on 01/29/17 18:54; Admin Dose 650 MG; Start 01/29/17 at 05:30 Guaifenesin/ Codeine Phosphate (Robitussin Ac Liquid Cup) 10 ml Q4H PRN PO COUGH Last administered on 02/07/17 17:58; Admin Dose 10 ML; Start 01/29/17 at 05:30 Atorvastatin Calcium (Lipitor) 10 mg HS PO Last administered on 02/07/17 20:51 ; Admin Dose 10 MG; Start 01/29/17 at 21:00 Pantoprazole (Protonix Tab) 40 mg DAILY@06 PO Last administered on 02/08/17 05 :56; Admin Dose 40 MG; Start 01/29/17 at 16:00 Epoetin Larry (Epogen (Non Esrd/Non Oncology)) 3,000 units MoWeFr@17 SC Last administered on 02/07/17 18:01; Admin Dose 3,000 UNITS; Start 01/31/17 at 17:00 Aspirin (Ecotrin) 325 mg DAILY PO Last administered on 02/08/17 10:41; Admin Dose 325 MG; Start 01/31/17 at 09:00 Diltiazem HCl (Cardizem Iv) 5 mg Q4 PRN IV HR>110 Hold SBP<100; Start 01/30/17 at 20:30 IV Flush (NS 10 ml) 10 ml PRN PRN IV FLUSH LINE; Start 01/31/17 at 17:30 Oxycodone/ Acetaminophen (Percocet (5/ 325)) 1 tab Q4H PRN PO PAIN Last administered on 02/07/17 22:26; Admin Dose 1 TAB; Start 02/01/17 at 07:30 Levofloxacin (Levaquin) 500 mg Q2D@06 PO Last administered on 02/08/17 05:56; Admin Dose 500 MG; Start 02/02/17 at 06:00 Methylprednisolone Sodium Succinate 20 mg 20 mg Q12 IV Last administered on 10:38; Admin Dose 20 MG; Start 02/02/17 at 09:00 Piperacillin Sod/ Tazobactam Sod (Zosyn 2.25gm/ 50ml (Pmx)) 50 ml @ 100 mls/hr Q8 IVPB Last administered on 02/08/17 05:55; Admin Dose 100 MLS/HR; Start 10/10 at 22:00 Nitroglycerin (Nitroglycerin (Sl Tab) 0.4 Mg) 1 tab Q5M PRN SL ANGINA; Start at 14:30 Ondansetron HCl (Zofran Tab) 4 mg Q6H PRN PO NAUSEA AND/OR VOMITING; Start 11/09 at 14:30 Diphenhydramine HCl (Benadryl) 50 mg Q6H PRN PO ALLERGIC REACTION Last administered on 02/07/17 22:26; Admin Dose 50 MG; Start 02/02/17 at 22:30 Isosorbide Dinitrate (Isordil) 10 mg TID PO Last administered on 02/08/17 10: 40; Admin Dose 10 MG; Start 02/03/17 at 15:30 Al Hydrox/Mg Hydrox/Simethicone (Mag-Al Plus) 30 ml Q6H PRN PO GASTROINTESTINAL UPSET; Start 02/03/17 at 15:30 Benazepril HCl (Lotensin) 20 mg BID PO Last administered on 02/08/17 10:39; Admin Dose 20 MG; Start 02/03/17 at 21:00 Metoprolol Tartrate (Lopressor) 25 mg BID PO Last administered on 02/08/17 10: 48; Admin Dose 25 MG; Start 02/05/17 at 16:00 Heparin Sodium (Porcine) (Heparin (5000 Units/0.5 ml)) 5,000 unit BID SC Last administered on 02/08/17 11:00; Admin Dose 5,000 UNIT; Start 02/05/17 at 16:00 Amiodarone HCl (Cordarone) 200 mg DAILY PO Last administered on 02/08/17 10:40 ; Admin Dose 200 MG; Start 02/08/17 at 09:00 MICHELLE COLEMAN MD Feb 08, 2017 13:36
[2017-02-08] MEDS: ATORVASTATIN 10 MG TAB PO SCH (20:48)
[2017-02-08] MEDS: OXYCODONE/ACETAMINOPHEN (5/325) TAB PO PRN (21:45)
[2017-02-08] MEDS: DIPHENHYDRAMINE 50 MG CAP PO PRN (21:45)
[2017-02-09] VITALS (12 sets, daily range): BP systolic 129–156; BP diastolic 58–79; PULSE 57–76; RESP 16–20
[2017-02-09] MEDS: PIPER-TAZO 2.25 GM (PMX) 50 ML IVPB SCH ×3 (05:55→22:07)
[2017-02-09] MEDS: PANTOPRAZOLE (EC) 40 MG TAB PO SCH (05:55)
[2017-02-09] MEDS: ALBUTEROL/IPRATROPIUM (NEB) 3 ML AMP HHN SCH ×3 (07:22→19:58)
[2017-02-09] MEDS: METOPROLOL 50 MG TAB PO SCH ×2 (09:00→21:03)
--- NOTE | 2017-02-09 09:11 | CONS ---
Date/Time of Note Date/Time of Note DATE: 02/09/17 TIME: 09:10 Assessment/Plan Assessment/Plan Additional Assessment/Plan 86 yo female with 1) Acute Bronchitis 2) COPD Exacerbation 3) CKD Likely Stage IV 4) Anemia, Chronic Disease 5) Pre Renal Azotemia Pt has component of Pre-renal Azotemia in the setting of Diuretic Rx, IV lasix...Also Steroid Rx may be contributing as well Overall Cr Stable, Bun Improved. No further IVFs at this time There is no indication for HD at this time. Consultation Date/Type/Reason Admit Date/Time Jan 31, 2017 at 15:05 Type of Consultation: Renal Referring Provider: LOREN ROSE MD Exam/Review of Systems Vital Signs Vitals Vital Signs Date Time Temp Pulse Resp B/P Pulse Ox O2 Delivery O2 Flow Rate FiO2 02/09/17 08:23 57 02/09/17 08:09 97.4 20 141/58 98 02/09/17 07:23 21 Intake and Output 02/08/17 02/08/17 02/09/17 15:00 23:00 07:00 Intake Total 1050 ml 850 ml Output Total 1150 ml Balance 1050 ml -300 ml Results Result Diagram: 02/08/17 0555 02/08/17 0555 Medications Medications Current Medications Acetaminophen (Tylenol Tab) 650 mg Q4H PRN PO PAIN AND OR ELEVATED TEMP Last administered on 01/29/17 18:54; Admin Dose 650 MG; Start 01/29/17 at 05:30 Guaifenesin/ Codeine Phosphate (Robitussin Ac Liquid Cup) 10 ml Q4H PRN PO COUGH Last administered on 02/07/17 17:58; Admin Dose 10 ML; Start 01/29/17 at 05:30 Atorvastatin Calcium (Lipitor) 10 mg HS PO Last administered on 02/08/17 20:48 ; Admin Dose 10 MG; Start 01/29/17 at 21:00 Pantoprazole (Protonix Tab) 40 mg DAILY@06 PO Last administered on 02/09/17 05 :55; Admin Dose 40 MG; Start 01/29/17 at 16:00 Epoetin Larry (Epogen (Non Esrd/Non Oncology)) 3,000 units MoWeFr@17 SC Last administered on 02/07/17 18:01; Admin Dose 3,000 UNITS; Start 01/31/17 at 17:00 Aspirin (Ecotrin) 325 mg DAILY PO Last administered on 02/08/17 10:41; Admin Dose 325 MG; Start 01/31/17 at 09:00 Diltiazem HCl (Cardizem Iv) 5 mg Q4 PRN IV HR>110 Hold SBP<100; Start 01/30/17 at 20:30 IV Flush (NS 10 ml) 10 ml PRN PRN IV FLUSH LINE; Start 01/31/17 at 17:30 Oxycodone/ Acetaminophen (Percocet (5/ 325)) 1 tab Q4H PRN PO PAIN Last administered on 02/08/17 21:45; Admin Dose 1 TAB; Start 02/01/17 at 07:30 Levofloxacin (Levaquin) 500 mg Q2D@06 PO Last administered on 02/08/17 05:56; Admin Dose 500 MG; Start 02/02/17 at 06:00 Methylprednisolone Sodium Succinate 20 mg 20 mg Q12 IV Last administered on 20:47; Admin Dose 20 MG; Start 02/02/17 at 09:00 Piperacillin Sod/ Tazobactam Sod (Zosyn 2.25gm/ 50ml (Pmx)) 50 ml @ 100 mls/hr Q8 IVPB Last administered on 02/09/17 05:55; Admin Dose 100 MLS/HR; Start 10/10 at 22:00 Nitroglycerin (Nitroglycerin (Sl Tab) 0.4 Mg) 1 tab Q5M PRN SL ANGINA; Start at 14:30 Ondansetron HCl (Zofran Tab) 4 mg Q6H PRN PO NAUSEA AND/OR VOMITING; Start 11/09 at 14:30 Diphenhydramine HCl (Benadryl) 50 mg Q6H PRN PO ALLERGIC REACTION Last administered on 02/08/17 21:45; Admin Dose 50 MG; Start 02/02/17 at 22:30 Isosorbide Dinitrate (Isordil) 10 mg TID PO Last administered on 02/08/17 20: 48; Admin Dose 10 MG; Start 02/03/17 at 15:30 Al Hydrox/Mg Hydrox/Simethicone (Mag-Al Plus) 30 ml Q6H PRN PO GASTROINTESTINAL UPSET; Start 02/03/17 at 15:30 Benazepril HCl (Lotensin) 20 mg BID PO Last administered on 02/08/17 20:50; Admin Dose 20 MG; Start 02/03/17 at 21:00 Metoprolol Tartrate (Lopressor) 25 mg BID PO Last administered on 02/08/17 20: 49; Admin Dose 25 MG; Start 02/05/17 at 16:00 Heparin Sodium (Porcine) (Heparin (5000 Units/0.5 ml)) 5,000 unit BID SC Last administered on 02/08/17 20:52; Admin Dose 5,000 UNIT; Start 02/05/17 at 16:00 Amiodarone HCl (Cordarone) 200 mg DAILY PO Last administered on 02/08/17 10:40 ; Admin Dose 200 MG; Start 02/08/17 at 09:00 ERIN KOWALSKI MD Feb 09, 2017 09:11
[2017-02-09] MEDS: ASPIRIN (EC) 325 MG TAB PO SCH (09:37)
[2017-02-09] MEDS: METHYLPREDNISOLONE 40 MG INJ IV SCH ×2 (09:37→21:01)
[2017-02-09] MEDS: CALCIUM CARBONATE 500 MG CHEW TAB PO SCH ×3 (09:37→18:01)
[2017-02-09] MEDS: BENAZEPRIL 20 MG TAB PO SCH ×2 (09:40→21:03)
[2017-02-09] MEDS: ISOSORBIDE DINITRATE 10 MG TAB PO SCH ×3 (09:40→21:01)
[2017-02-09] MEDS: AMIODARONE 200 MG TAB PO SCH (09:41)
[2017-02-09] MEDS: HEPARIN 5,000 UNIT/0.5 ML SYG SC SCH ×2 (09:55→21:10)
--- NOTE | 2017-02-09 11:48 | PN ---
Date/Time of Note Date/Time of Note DATE: 02/09/17 TIME: 11:47 Assessment/Plan VTE Prophylaxis VTE Prophylaxis Intervention: other Lines/Catheters IV Catheter Type (from Nrs): PICC Line Central line still needed: Yes Assessment/Plan Chief Complaint/Hosp Course - Possible bronchitis versus early pneumonia. Continue Levaquin, continue breathing treatments. - Ecoli urinary tract infection. Continue Levaquin. - Diastolic dysfunction congestive heart failure. Dr. Iraheta is following and cardiology consultation, continue gentle diuresis. - Atrial fibrillation at controlled rate. Continue aspirin and metoprolol. - Hypertension. Continue metoprolol and benazepril. - Aortic stenosis. - Hyperlipidemia. Continue statin. - Possible chronic obstructive pulmonary disease exacerbation. Continue patient on breathing treatments, start the patient on steroids. Continue supplemental oxygen. - Stage IV chronic kidney disease. Kidney ultrasound is consistent with chronic kidney disease. Dr. Gordon is following in nephrology consultation. - Gout. Continue allopurinol. - Anemia of chronic disease, continue Epogen. Problems: Subjective 24 Hr Interval Summary Free Text/Dictation Patient has no complaints Exam/Review of Systems Vital Signs Vitals Vital Signs Date Time Temp Pulse Resp B/P Pulse Ox O2 Delivery O2 Flow Rate FiO2 02/09/17 11:38 98.2 63 20 156/64 96 02/09/17 07:23 21 Intake and Output 02/08/17 02/08/17 02/09/17 15:00 23:00 07:00 Intake Total 1050 ml 850 ml Output Total 1150 ml Balance 1050 ml -300 ml Exam Constitutional: well developed Head: atraumatic, normocephalic Neck: supple Respiratory: diminished breath sounds Cardiovascular: regular rate and rhythm Gastrointestinal: non-tender, soft Extremities: normal pulses Results Result Diagram: 02/08/1755 02/08/17 0555 Medications Medications Current Medications Acetaminophen (Tylenol Tab) 650 mg Q4H PRN PO PAIN AND OR ELEVATED TEMP Last administered on 01/29/17 18:54; Admin Dose 650 MG; Start 01/29/17 at 05:30 Guaifenesin/ Codeine Phosphate (Robitussin Ac Liquid Cup) 10 ml Q4H PRN PO COUGH Last administered on 02/07/17 17:58; Admin Dose 10 ML; Start 01/29/17 at 05:30 Atorvastatin Calcium (Lipitor) 10 mg HS PO Last administered on 02/08/17 20:48 ; Admin Dose 10 MG; Start 01/29/17 at 21:00 Pantoprazole (Protonix Tab) 40 mg DAILY@06 PO Last administered on 02/09/17 05 :55; Admin Dose 40 MG; Start 01/29/17 at 16:00 Epoetin Larry (Epogen (Non Esrd/Non Oncology)) 3,000 units MoWeFr@17 SC Last administered on 02/07/17 18:01; Admin Dose 3,000 UNITS; Start 01/31/17 at 17:00 Aspirin (Ecotrin) 325 mg DAILY PO Last administered on 02/09/17 09:37; Admin Dose 325 MG; Start 01/31/17 at 09:00 Diltiazem HCl (Cardizem Iv) 5 mg Q4 PRN IV HR>110 Hold SBP<100; Start 01/30/17 at 20:30 IV Flush (NS 10 ml) 10 ml PRN PRN IV FLUSH LINE; Start 01/31/17 at 17:30 Oxycodone/ Acetaminophen (Percocet (5/ 325)) 1 tab Q4H PRN PO PAIN Last administered on 02/08/17 21:45; Admin Dose 1 TAB; Start 02/01/17 at 07:30 Levofloxacin (Levaquin) 500 mg Q2D@06 PO Last administered on 02/08/17 05:56; Admin Dose 500 MG; Start 02/02/17 at 06:00 Methylprednisolone Sodium Succinate 20 mg 20 mg Q12 IV Last administered on 09:37; Admin Dose 20 MG; Start 02/02/17 at 09:00 Piperacillin Sod/ Tazobactam Sod (Zosyn 2.25gm/ 50ml (Pmx)) 50 ml @ 100 mls/hr Q8 IVPB Last administered on 02/09/17 05:55; Admin Dose 100 MLS/HR; Start 10/10 at 22:00 Nitroglycerin (Nitroglycerin (Sl Tab) 0.4 Mg) 1 tab Q5M PRN SL ANGINA; Start at 14:30 Ondansetron HCl (Zofran Tab) 4 mg Q6H PRN PO NAUSEA AND/OR VOMITING; Start 11/09 at 14:30 Diphenhydramine HCl (Benadryl) 50 mg Q6H PRN PO ALLERGIC REACTION Last administered on 02/08/17 21:45; Admin Dose 50 MG; Start 02/02/17 at 22:30 Isosorbide Dinitrate (Isordil) 10 mg TID PO Last administered on 02/09/17 09: 40; Admin Dose 10 MG; Start 02/03/17 at 15:30 Al Hydrox/Mg Hydrox/Simethicone (Mag-Al Plus) 30 ml Q6H PRN PO GASTROINTESTINAL UPSET; Start 02/03/17 at 15:30 Benazepril HCl (Lotensin) 20 mg BID PO Last administered on 02/09/17 09:40; Admin Dose 20 MG; Start 02/03/17 at 21:00 Metoprolol Tartrate (Lopressor) 25 mg BID PO Last administered on 02/08/17 20: 49; Admin Dose 25 MG; Start 02/05/17 at 16:00 Heparin Sodium (Porcine) (Heparin (5000 Units/0.5 ml)) 5,000 unit BID SC Last administered on 02/09/17 09:55; Admin Dose 5,000 UNIT; Start 02/05/17 at 16:00 Amiodarone HCl (Cordarone) 200 mg DAILY PO Last administered on 02/09/17 09:41 ; Admin Dose 200 MG; Start 02/08/17 at 09:00 LAMONT BREWER Feb 09, 2017 11:47
--- NOTE | 2017-02-09 17:53 | CONS ---
Date/Time of Note Date/Time of Note DATE: 02/09/17 TIME: 17:51 Assessment/Plan Assessment/Plan Additional Assessment/Plan 1. Atrial fibrillation, not currently on systemic anticoagulation but on asa, rate controlled and currently in SR/SB-Had recurrent AF/AFL to 150 after patient refused BB today - NOW IN SINUS, RATE CONTROLLED. OVER LAST 24 hrs no tachy-twan - will monitor for now - will hold off on pacer unless tachy-twan recurs. 2. Shortness of breath, assess for congestive heart failure- con't gentle diuresis. 3. Diastolic dysfunction by 2D echo this admission.-CHF by cxr 02/01 4. Hypertension- in better range now. 5. Possible chronic obstructive pulmonary disease- Rx as needed. 6. Possible bronchitis. 7. Possible pneumonia- ion anti-Bx. 8. Dyslipidemia. 9. Chronic kidney disease. 10. Anemia. 11. Leukocytosis 12. Chest pain-improved/negative troponin x 2/NO changes on ECG 14. BRadycardia-to 30's till recurrent-? Tachy-Twan syndrome 0- REVIEWED TRACINGS - SINUS BRASDY NOTED - no slow a. fib - hope pt is compliant with BB - will consider pacer Class II indication. Consultation Date/Type/Reason Admit Date/Time Jan 31, 2017 at 15:05 Type of Consultation: Renal Referring Provider: LOREN ROSE MD 24 HR Interval Summary Free Text/Dictation No acute change - BP stable - in sinus now- HR well controlled - no new tachy- twan episodes noted. ROS: No fever, no chills, no nausea, no vomiting, no diarrhea/constipation No recent weight changes No chest pain, no PND, no orthopnea No dizziness, blurred vision No thirst, no heat or cold intolerance Exam/Review of Systems Vital Signs Vitals Vital Signs Date Time Temp Pulse Resp B/P Pulse Ox O2 Delivery O2 Flow Rate FiO2 02/09/17 16:55 61 02/09/17 16:27 97.9 18 152/72 98 02/09/17 14:19 21 Intake and Output 02/08/17 02/08/17 02/09/17 15:00 23:00 07:00 Intake Total 1050 ml 850 ml Output Total 1150 ml Balance 1050 ml -300 ml Exam General: WN/WD/NAD, AOx 2-3 HEENT: Unicetric/atraumatic/EOMI (follow commands) NECK: JVD elevated, no thyromegaly Lymph: no lymphadenopathy HEART: regular with no S3, II/ systolic murmur at apex LUNGS: Coarse sounds ABD: soft, NT, ND, +BS : Intact Neuro: non focal SKIN: chronic changes EXT: trace edema Results Result Diagram: 02/08/17 0555 02/08/17 0555 Medications Medications Current Medications Acetaminophen (Tylenol Tab) 650 mg Q4H PRN PO PAIN AND OR ELEVATED TEMP Last administered on 01/29/17 18:54; Admin Dose 650 MG; Start 01/29/17 at 05:30 Guaifenesin/ Codeine Phosphate (Robitussin Ac Liquid Cup) 10 ml Q4H PRN PO COUGH Last administered on 02/07/17 17:58; Admin Dose 10 ML; Start 01/29/17 at 05:30 Atorvastatin Calcium (Lipitor) 10 mg HS PO Last administered on 02/08/17 20:48 ; Admin Dose 10 MG; Start 01/29/17 at 21:00 Pantoprazole (Protonix Tab) 40 mg DAILY@06 PO Last administered on 02/09/17 05 :55; Admin Dose 40 MG; Start 01/29/17 at 16:00 Epoetin Larry (Epogen (Non Esrd/Non Oncology)) 3,000 units MoWeFr@17 SC Last administered on 02/07/17 18:01; Admin Dose 3,000 UNITS; Start 01/31/17 at 17:00 Aspirin (Ecotrin) 325 mg DAILY PO Last administered on 02/09/17 09:37; Admin Dose 325 MG; Start 01/31/17 at 09:00 Diltiazem HCl (Cardizem Iv) 5 mg Q4 PRN IV HR>110 Hold SBP<100; Start 01/30/17 at 20:30 IV Flush (NS 10 ml) 10 ml PRN PRN IV FLUSH LINE; Start 01/31/17 at 17:30 Oxycodone/ Acetaminophen (Percocet (5/ 325)) 1 tab Q4H PRN PO PAIN Last administered on 02/08/17 21:45; Admin Dose 1 TAB; Start 02/01/17 at 07:30 Levofloxacin (Levaquin) 500 mg Q2D@06 PO Last administered on 02/08/17 05:56; Admin Dose 500 MG; Start 02/02/17 at 06:00 Methylprednisolone Sodium Succinate 20 mg 20 mg Q12 IV Last administered on 09:37; Admin Dose 20 MG; Start 02/02/17 at 09:00 Piperacillin Sod/ Tazobactam Sod (Zosyn 2.25gm/ 50ml (Pmx)) 50 ml @ 100 mls/hr Q8 IVPB Last administered on 02/09/17 13:23; Admin Dose 100 MLS/HR; Start 10/10 at 22:00 Nitroglycerin (Nitroglycerin (Sl Tab) 0.4 Mg) 1 tab Q5M PRN SL ANGINA; Start at 14:30 Ondansetron HCl (Zofran Tab) 4 mg Q6H PRN PO NAUSEA AND/OR VOMITING; Start 11/09 at 14:30 Diphenhydramine HCl (Benadryl) 50 mg Q6H PRN PO ALLERGIC REACTION Last administered on 02/08/17 21:45; Admin Dose 50 MG; Start 02/02/17 at 22:30 Isosorbide Dinitrate (Isordil) 10 mg TID PO Last administered on 02/09/17 13: 22; Admin Dose 10 MG; Start 02/03/17 at 15:30 Al Hydrox/Mg Hydrox/Simethicone (Mag-Al Plus) 30 ml Q6H PRN PO GASTROINTESTINAL UPSET; Start 02/03/17 at 15:30 Benazepril HCl (Lotensin) 20 mg BID PO Last administered on 02/09/17 09:40; Admin Dose 20 MG; Start 02/03/17 at 21:00 Metoprolol Tartrate (Lopressor) 25 mg BID PO Last administered on 02/08/17 20: 49; Admin Dose 25 MG; Start 02/05/17 at 16:00 Heparin Sodium (Porcine) (Heparin (5000 Units/0.5 ml)) 5,000 unit BID SC Last administered on 02/09/17 09:55; Admin Dose 5,000 UNIT; Start 02/05/17 at 16:00 Amiodarone HCl (Cordarone) 200 mg DAILY PO Last administered on 02/09/17 09:41 ; Admin Dose 200 MG; Start 02/08/17 at 09:00 MICHELLE COLEMAN MD Feb 09, 2017 17:52
[2017-02-09] MEDS: ATORVASTATIN 10 MG TAB PO SCH (21:02)
[2017-02-09] MEDS: OXYCODONE/ACETAMINOPHEN (5/325) TAB PO PRN (22:07)
[2017-02-09] MEDS: DIPHENHYDRAMINE 50 MG CAP PO PRN (22:07)
[2017-02-10] VITALS (12 sets, daily range): BP systolic 135–155; BP diastolic 55–73; PULSE 53–85; RESP 18–20
[2017-02-10] MEDS: PIPER-TAZO 2.25 GM (PMX) 50 ML IVPB SCH ×3 (05:58→22:13)
[2017-02-10] MEDS: LEVOFLOXACIN 500 MG TAB PO SCH (05:58)
[2017-02-10] MEDS: PANTOPRAZOLE (EC) 40 MG TAB PO SCH (05:58)
[2017-02-10] MEDS: CALCIUM CARBONATE 500 MG CHEW TAB PO SCH ×4 (07:53→20:17)
[2017-02-10] MEDS: ASPIRIN (EC) 325 MG TAB PO SCH (08:00)
[2017-02-10] MEDS: BENAZEPRIL 20 MG TAB PO SCH ×2 (08:00→20:18)
[2017-02-10] MEDS: ISOSORBIDE DINITRATE 10 MG TAB PO SCH ×3 (08:01→20:18)
[2017-02-10] MEDS: AMIODARONE 200 MG TAB PO SCH (08:01)
[2017-02-10] MEDS: METOPROLOL 50 MG TAB PO SCH (08:02)
[2017-02-10] MEDS: METHYLPREDNISOLONE 40 MG INJ IV SCH ×2 (08:02→20:18)
[2017-02-10] MEDS: HEPARIN 5,000 UNIT/0.5 ML SYG SC SCH ×2 (08:13→20:36)
[2017-02-10 08:16] LABS: ADD SCAN DIFF NO
[2017-02-10 08:37] LABS: CREATININE 2.22 mg/dl (0.44-1.00)
[2017-02-10 08:38] LABS: CALCIUM 8.9 mg/dl (8.4-10.2)
[2017-02-10 08:44] LABS: BASOPHILS % 0.2 % (0.0-2.0); HEMATOCRIT 30.4 % (37.0-47.0); HEMOGLOBIN 9.5 g/dl (12.0-16.0); LYMPHOCYTES % 5.3 % (15.0-51.0); MEAN CORPUSCULAR HEMOGLOBIN 30.7 pg (29.0-33.0); MEAN CORPUSCULAR HGB CONC 31.3 g/dl (32.0-37.0); MEAN CORPUSCULAR VOLUME 98.4 fl (82.0-101.0); MEAN PLATELET VOLUME 10.5 fl (7.4-10.4); MONOCYTE # 0.6 10^3/ul (0.3-0.9); MONOCYTES % 3.2 % (0.0-11.0); NEUTROPHIL # 16.2 10^3/ul (1.6-7.5); NEUTROPHILS % 86.6 % (39.0-77.0); NUCLEATED RED BLOOD CELLS% 0.2 /100WBC (0.0-0.0); PLATELET COUNT 268 10^3/UL (140-415); RED BLOOD COUNT 3.09 10^6/ul (4.20-5.40); RED CELL DISTRIBUTION WIDTH 17.8 % (11.5-14.5); WHITE BLOOD COUNT 18.7 10^3/ul (4.8-10.8)
[2017-02-10] MEDS: ALBUTEROL/IPRATROPIUM (NEB) 3 ML AMP HHN SCH ×3 (09:48→20:32)
--- NOTE | 2017-02-10 11:52 | CONS ---
Date/Time of Note Date/Time of Note DATE: 02/10/17 TIME: 11:48 Assessment/Plan Assessment/Plan Chief Complaint/Hosp Course IMPRESSION: 1. Atrial fibrillation, not currently on systemic anticoagulation but on asa, rate controlled and currently in SR/SB-Had recurrent AF/AFL to 150 friday. Currently SR on low dose amio. 2. Shortness of breath, assess for congestive heart failure. 3. Diastolic dysfunction by 2D echo this admission.-CHF by cxr 02/01 4. Hypertension. 5. Possible chronic obstructive pulmonary disease. 6. Possible bronchitis. 7. Possible pneumonia. 8. Dyslipidemia. 9. Chronic kidney disease. 10. Anemia. 11. Leukocytosis 12. Chest pain-improved/negative troponin x 2/NO changes on ECG 14. 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 Appreciate EP eval Problems: Consultation Date/Type/Reason Admit Date/Time Jan 31, 2017 at 15:05 Initial Consult Date 01/30/2017 Type of Consultation: Cardiology Reason for Consultation CHF/arrythmia Referring Provider: LOREN ROSE MD Exam/Review of Systems Vital Signs Vitals Vital Signs Date Time Temp Pulse Resp B/P Pulse Ox O2 Delivery O2 Flow Rate FiO2 02/10/17 11:35 98.0 67 20 135/67 98 02/10/17 09:49 21 Intake and Output 02/09/17 02/09/17 02/10/17 15:00 23:00 07:00 Intake Total 960 ml 1000 ml Output Total 1000 ml 1250 ml Balance -40 ml -250 ml Exam Review of Systems: CONSTITUTIONAL: No fevers, chills. PULMONARY: Mild sob and ongoing cough CARDIOVASCULAR: No chest pain/palpitations GASTROINTESTINAL: No nausea/vomiting. GENITOURINARY: No hematuria/dysuria. MUSCULOSKELETAL: No myagias/arthalgias. PSYCHIATRIC: The patient denies depression. NEUROLOGIC: lethargic Constitutional: alert Head: normocephalic ENMT: mucosa pink and moist Neck: jvd (9 cm water), supple Respiratory: diminished breath sounds (at bases/B) Cardiovascular: regular rate and rhythm Gastrointestinal: non-tender, soft Extremities: edema (none) 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: other (No focal deficits) Results Result Diagram: 02/10/17 0715 02/10/17 0715 Results 24 hrs Laboratory Tests Test 02/10/17 07:15 Anion Gap 16 Basophils # 0.0 Basophils % 0.2 Blood Urea Nitrogen 64 H Calcium Level 8.9 Carbon Dioxide Level 19 L Chloride Level 111 H Creatinine 2.22 H Eosinophils # 0.0 Eosinophils % 0.0 Glucose Level 121 Hematocrit 30.4 L Hemoglobin 9.5 L Lymphocytes # 1.0 Lymphocytes % 5.3 L Mean Corpuscular Hemoglobin 30.7 Mean Corpuscular Hemoglobin Concent 31.3 L Mean Corpuscular Volume 98.4 Mean Platelet Volume 10.5 H Monocytes # 0.6 Monocytes % 3.2 Neutrophils # 16.2 H Neutrophils % 86.6 H Nucleated Red Blood Cells # 0.0 Nucleated Red Blood Cells % 0.2 H Platelet Count 268 Potassium Level 5.0 Red Blood Count 3.09 L Red Cell Distribution Width 17.8 H Sodium Level 141 White Blood Count 18.7 H Medications Medications Current Medications Acetaminophen (Tylenol Tab) 650 mg Q4H PRN PO PAIN AND OR ELEVATED TEMP Last administered on 01/29/17 18:54; Admin Dose 650 MG; Start 01/29/17 at 05:30 Guaifenesin/ Codeine Phosphate (Robitussin Ac Liquid Cup) 10 ml Q4H PRN PO COUGH Last administered on 02/07/17 17:58; Admin Dose 10 ML; Start 01/29/17 at 05:30 Atorvastatin Calcium (Lipitor) 10 mg HS PO Last administered on 02/09/17 21:02 ; Admin Dose 10 MG; Start 01/29/17 at 21:00 Pantoprazole (Protonix Tab) 40 mg DAILY@06 PO Last administered on 02/10/17 05 :58; Admin Dose 40 MG; Start 01/29/17 at 16:00 Epoetin Larry (Epogen (Non Esrd/Non Oncology)) 3,000 units MoWeFr@17 SC Last administered on 02/07/17 18:01; Admin Dose 3,000 UNITS; Start 01/31/17 at 17:00 Aspirin (Ecotrin) 325 mg DAILY PO Last administered on 02/10/17 08:00; Admin Dose 325 MG; Start 01/31/17 at 09:00 Diltiazem HCl (Cardizem Iv) 5 mg Q4 PRN IV HR>110 Hold SBP<100; Start 01/30/17 at 20:30 IV Flush (NS 10 ml) 10 ml PRN PRN IV FLUSH LINE; Start 01/31/17 at 17:30 Oxycodone/ Acetaminophen (Percocet (5/ 325)) 1 tab Q4H PRN PO PAIN Last administered on 02/09/17 22:07; Admin Dose 1 TAB; Start 02/01/17 at 07:30 Levofloxacin (Levaquin) 500 mg Q2D@06 PO Last administered on 02/10/17 05:58; Admin Dose 500 MG; Start 02/02/17 at 06:00 Methylprednisolone Sodium Succinate 20 mg 20 mg Q12 IV Last administered on 08:02; Admin Dose 20 MG; Start 02/02/17 at 09:00 Piperacillin Sod/ Tazobactam Sod (Zosyn 2.25gm/ 50ml (Pmx)) 50 ml @ 100 mls/hr Q8 IVPB Last administered on 02/10/17 05:58; Admin Dose 100 MLS/HR; Start 10/10 at 22:00 Nitroglycerin (Nitroglycerin (Sl Tab) 0.4 Mg) 1 tab Q5M PRN SL ANGINA; Start at 14:30 Ondansetron HCl (Zofran Tab) 4 mg Q6H PRN PO NAUSEA AND/OR VOMITING; Start 11/09 at 14:30 Diphenhydramine HCl (Benadryl) 50 mg Q6H PRN PO ALLERGIC REACTION Last administered on 02/09/17 22:07; Admin Dose 50 MG; Start 02/02/17 at 22:30 Isosorbide Dinitrate (Isordil) 10 mg TID PO Last administered on 02/10/17 08: 01; Admin Dose 10 MG; Start 02/03/17 at 15:30 Al Hydrox/Mg Hydrox/Simethicone (Mag-Al Plus) 30 ml Q6H PRN PO GASTROINTESTINAL UPSET; Start 02/03/17 at 15:30 Benazepril HCl (Lotensin) 20 mg BID PO Last administered on 02/10/17 08:00; Admin Dose 20 MG; Start 02/03/17 at 21:00 Metoprolol Tartrate (Lopressor) 25 mg BID PO Last administered on 02/09/17 21: 03; Admin Dose 25 MG; Start 02/05/17 at 16:00 Heparin Sodium (Porcine) (Heparin (5000 Units/0.5 ml)) 5,000 unit BID SC Last administered on 02/10/17 08:13; Admin Dose 5,000 UNIT; Start 02/05/17 at 16:00 Amiodarone HCl (Cordarone) 200 mg DAILY PO Last administered on 02/10/17 08:01 ; Admin Dose 200 MG; Start 02/08/17 at 09:00 ALVINA GARCIA Feb 10, 2017 11:52
--- NOTE | 2017-02-10 13:56 | RADRPT ---
PROCEDURE: CHEST 1VW CLINICAL INDICATION: Shortness of breath TECHNIQUE: Single frontal view of the chest was obtained COMPARISON: 02/01/2017 FINDINGS: Stable right PICC. The cardiac size is mildly enlarged, stable. Aortic vascular calcifications are demonstrated. There is no pulmonary vascular congestion. Mild bronchial wall thickening is seen. The lungs are otherwise clear. No consolidation, effusion, or pneumothorax. Mild degenerative changes of the visualized osseous structures are visualized. IMPRESSION: 1. Mild bronchial wall thickening may be sequela of bronchitis, asthma, or other nonspecific airway inflammation. 2. Atherosclerosis. RPTAT:PP .Kelvin Ronquillo MD, Date Time Electronically viewed and signed by .Kelvin Ronquillo MD, on 02/10/2017 13:55 .V/
--- NOTE | 2017-02-10 15:02 | CONS ---
Date/Time of Note Date/Time of Note DATE: 02/10/17 TIME: 14:58 Assessment/Plan Assessment/Plan Additional Assessment/Plan 86 yo female with 1) Acute Bronchitis 2) COPD Exacerbation 3) CKD Likely Stage IV 4) Anemia, Chronic Disease 5) Pre Renal Azotemia Stable and improved renal function CXR Reviewed, NO evidence of Edema Cont current Rx and Plan On Abx for Bronchitis, Dose to Stage IV CKD Will cont to monitor UO, Electrolytes and renal function Cont ASHLEY for Anemia, CKD NO acute indication for HD at this time. Consultation Date/Type/Reason Admit Date/Time Jan 31, 2017 at 15:05 Type of Consultation: Nephrology Referring Provider: LOREN ROSE MD 24 HR Interval Summary Free Text/Dictation Seen By Cardio Exam/Review of Systems Vital Signs Vitals Vital Signs Date Time Temp Pulse Resp B/P Pulse Ox O2 Delivery O2 Flow Rate FiO2 02/10/17 12:00 70 02/10/17 11:35 98.0 20 135/67 98 02/10/17 09:49 21 Intake and Output 02/09/17 02/09/17 02/10/17 15:00 23:00 07:00 Intake Total 960 ml 1000 ml Output Total 1000 ml 1250 ml Balance -40 ml -250 ml Exam Constitutional: No distress Eyes: EOMI Neck: No jvd Respiratory: clear to auscultation Cardiovascular: regular rate and rhythm, No edema Gastrointestinal: non-tender, soft Results Result Diagram: 02/10/17 0715 02/10/17 0715 Results 24 hrs Laboratory Tests Test 02/10/17 07:15 Anion Gap 16 Basophils # 0.0 Basophils % 0.2 Blood Urea Nitrogen 64 H Calcium Level 8.9 Carbon Dioxide Level 19 L Chloride Level 111 H Creatinine 2.22 H Eosinophils # 0.0 Eosinophils % 0.0 Glucose Level 121 Hematocrit 30.4 L Hemoglobin 9.5 L Lymphocytes # 1.0 Lymphocytes % 5.3 L Mean Corpuscular Hemoglobin 30.7 Mean Corpuscular Hemoglobin Concent 31.3 L Mean Corpuscular Volume 98.4 Mean Platelet Volume 10.5 H Monocytes # 0.6 Monocytes % 3.2 Neutrophils # 16.2 H Neutrophils % 86.6 H Nucleated Red Blood Cells # 0.0 Nucleated Red Blood Cells % 0.2 H Platelet Count 268 Potassium Level 5.0 Red Blood Count 3.09 L Red Cell Distribution Width 17.8 H Sodium Level 141 White Blood Count 18.7 H Medications Medications Current Medications Acetaminophen (Tylenol Tab) 650 mg Q4H PRN PO PAIN AND OR ELEVATED TEMP Last administered on 01/29/17 18:54; Admin Dose 650 MG; Start 01/29/17 at 05:30 Guaifenesin/ Codeine Phosphate (Robitussin Ac Liquid Cup) 10 ml Q4H PRN PO COUGH Last administered on 02/07/17 17:58; Admin Dose 10 ML; Start 01/29/17 at 05:30 Atorvastatin Calcium (Lipitor) 10 mg HS PO Last administered on 02/09/17 21:02 ; Admin Dose 10 MG; Start 01/29/17 at 21:00 Pantoprazole (Protonix Tab) 40 mg DAILY@06 PO Last administered on 02/10/17 05 :58; Admin Dose 40 MG; Start 01/29/17 at 16:00 Epoetin Larry (Epogen (Non Esrd/Non Oncology)) 3,000 units MoWeFr@17 SC Last administered on 02/07/17 18:01; Admin Dose 3,000 UNITS; Start 01/31/17 at 17:00 Aspirin (Ecotrin) 325 mg DAILY PO Last administered on 02/10/17 08:00; Admin Dose 325 MG; Start 01/31/17 at 09:00 Diltiazem HCl (Cardizem Iv) 5 mg Q4 PRN IV HR>110 Hold SBP<100; Start 01/30/17 at 20:30 IV Flush (NS 10 ml) 10 ml PRN PRN IV FLUSH LINE; Start 01/31/17 at 17:30 Oxycodone/ Acetaminophen (Percocet (5/ 325)) 1 tab Q4H PRN PO PAIN Last administered on 02/09/17 22:07; Admin Dose 1 TAB; Start 02/01/17 at 07:30 Levofloxacin (Levaquin) 500 mg Q2D@06 PO Last administered on 02/10/17 05:58; Admin Dose 500 MG; Start 02/02/17 at 06:00 Methylprednisolone Sodium Succinate 20 mg 20 mg Q12 IV Last administered on 08:02; Admin Dose 20 MG; Start 02/02/17 at 09:00 Piperacillin Sod/ Tazobactam Sod (Zosyn 2.25gm/ 50ml (Pmx)) 50 ml @ 100 mls/hr Q8 IVPB Last administered on 02/10/17 13:48; Admin Dose 100 MLS/HR; Start 10/10 at 22:00 Nitroglycerin (Nitroglycerin (Sl Tab) 0.4 Mg) 1 tab Q5M PRN SL ANGINA; Start at 14:30 Ondansetron HCl (Zofran Tab) 4 mg Q6H PRN PO NAUSEA AND/OR VOMITING; Start 11/09 at 14:30 Diphenhydramine HCl (Benadryl) 50 mg Q6H PRN PO ALLERGIC REACTION Last administered on 02/09/17 22:07; Admin Dose 50 MG; Start 02/02/17 at 22:30 Isosorbide Dinitrate (Isordil) 10 mg TID PO Last administered on 02/10/17 13: 51; Admin Dose 10 MG; Start 02/03/17 at 15:30 Al Hydrox/Mg Hydrox/Simethicone (Mag-Al Plus) 30 ml Q6H PRN PO GASTROINTESTINAL UPSET; Start 02/03/17 at 15:30 Benazepril HCl (Lotensin) 20 mg BID PO Last administered on 02/10/17 08:00; Admin Dose 20 MG; Start 02/03/17 at 21:00 Metoprolol Tartrate (Lopressor) 25 mg BID PO Last administered on 02/09/17 21: 03; Admin Dose 25 MG; Start 02/05/17 at 16:00; Status Future Hold Heparin Sodium (Porcine) (Heparin (5000 Units/0.5 ml)) 5,000 unit BID SC Last administered on 02/10/17 08:13; Admin Dose 5,000 UNIT; Start 02/05/17 at 16:00 Amiodarone HCl (Cordarone) 200 mg DAILY PO Last administered on 02/10/17 08:01 ; Admin Dose 200 MG; Start 02/08/17 at 09:00 Procedures Procedures PROCEDURE: CHEST 1VW CLINICAL INDICATION: Shortness of breath TECHNIQUE: Single frontal view of the chest was obtained COMPARISON: 02/01/2017 FINDINGS: Stable right PICC. The cardiac size is mildly enlarged, stable. Aortic vascular calcifications are demonstrated. There is no pulmonary vascular congestion. Mild bronchial wall thickening is seen. The lungs are otherwise clear. No consolidation, effusion, or pneumothorax. Mild degenerative changes of the visualized osseous structures are visualized. IMPRESSION: 1. Mild bronchial wall thickening may be sequela of bronchitis, asthma, or other nonspecific airway inflammation. 2. Atherosclerosis. RPTAT:PP .Kelvin Ronquillo MD, MD Date Time Electronically viewed and signed by .Kelvin Ronquillo MD, MD on 02/10/2017 13:55 ERIN KOWALSKI MD Feb 10, 2017 15:02
[2017-02-10] MEDS: EPOETIN 3000 UNITS/ML (NON ESRD/NON ONCOLOGY) SC SCH (17:57)
--- NOTE | 2017-02-10 18:44 | PN ---
Date/Time of Note Date/Time of Note DATE: 02/10/17 TIME: 18:39 Assessment/Plan VTE Prophylaxis VTE Prophylaxis Intervention: SCD's Lines/Catheters IV [facility]ter [facility]from [facility] PICC Line Central line still needed: Yes Urinary Cath still in place: No Assessment/Plan Chief Complaint/Hosp Course ASSESSMENT AND PLAN: - Bradycardia, metoprolol is on hold, continue to follow-up cardiology recommendation, continue telemetry monitoring. - Possible bronchitis versus early pneumonia. Continue abx, continue breathing treatments. - Ecoli urinary tract infection, s/p treatment. - Diastolic dysfunction congestive heart failure. Dr. Iraheta is following and cardiology consultation, continue gentle diuresis. - Atrial fibrillation at controlled rate. Continue aspirin and metoprolol. - Hypertension. Continue metoprolol and benazepril. - Aortic stenosis. - Hyperlipidemia. Continue statin. - Possible chronic obstructive pulmonary disease exacerbation. Continue patient on breathing treatments, start the patient on steroids. Continue supplemental oxygen. - Stage IV chronic kidney disease. Kidney ultrasound is consistent with chronic kidney disease. Dr. Gordon is following in nephrology consultation. - Gout. Continue allopurinol. - Anemia of chronic disease, continue Epogen. Continue Lovenox for deep venous thrombosis prophylaxis and Protonix for peptic ulcer disease prophylaxis. Further recommendations based on clinical course. Plan of care discussed with Dr. Olivier. Problems: Subjective 24 Hr Interval Summary Free Text/Dictation Patient is comfortable on supplemental oxygen, denies shortness of breath at rest, evaluated by physical therapy. Exam/Review of Systems Vital Signs Vitals Vital Signs Date Time Temp Pulse Resp B/P Pulse Ox O2 Delivery O2 Flow Rate FiO2 02/10/17 16:17 98.3 69 20 136/55 98 02/10/17 15:12 21 Intake and Output 02/09/17 02/09/17 02/10/17 15:00 23:00 07:00 Intake Total 960 ml 1000 ml Output Total 1000 ml 1250 ml Balance -40 ml -250 ml Exam Constitutional: alert, oriented Psych: no complaints Head: atraumatic, normocephalic Eyes: nl conjunctiva Neck: non-tender, supple Respiratory: other (Diminished at the bases) Cardiovascular: other (Irregularly irregular rhythm) Gastrointestinal: non-tender, soft Musculoskeletal: nl extremities to inspection, nl gait and stance Extremities: normal pulses 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 Results Result Diagram: 02/10/17 0715 02/10/17 0715 Results 24 hrs Laboratory Tests Test 02/10/17 07:15 Anion Gap 16 Basophils # 0.0 Basophils % 0.2 Blood Urea Nitrogen 64 H Calcium Level 8.9 Carbon Dioxide Level 19 L Chloride Level 111 H Creatinine 2.22 H Eosinophils # 0.0 Eosinophils % 0.0 Glucose Level 121 Hematocrit 30.4 L Hemoglobin 9.5 L Lymphocytes # 1.0 Lymphocytes % 5.3 L Mean Corpuscular Hemoglobin 30.7 Mean Corpuscular Hemoglobin Concent 31.3 L Mean Corpuscular Volume 98.4 Mean Platelet Volume 10.5 H Monocytes # 0.6 Monocytes % 3.2 Neutrophils # 16.2 H Neutrophils % 86.6 H Nucleated Red Blood Cells # 0.0 Nucleated Red Blood Cells % 0.2 H Platelet Count 268 Potassium Level 5.0 Red Blood Count 3.09 L Red Cell Distribution Width 17.8 H Sodium Level 141 White Blood Count 18.7 H Medications Medications Current Medications Acetaminophen (Tylenol Tab) 650 mg Q4H PRN PO PAIN AND OR ELEVATED TEMP Last administered on 01/29/17 18:54; Admin Dose 650 MG; Start 01/29/17 at 05:30 Guaifenesin/ Codeine Phosphate (Robitussin Ac Liquid Cup) 10 ml Q4H PRN PO COUGH Last administered on 02/07/17 17:58; Admin Dose 10 ML; Start 01/29/17 at 05:30 Atorvastatin Calcium (Lipitor) 10 mg HS PO Last administered on 02/09/17 21:02 ; Admin Dose 10 MG; Start 01/29/17 at 21:00 Pantoprazole (Protonix Tab) 40 mg DAILY@06 PO Last administered on 02/10/17 05 :58; Admin Dose 40 MG; Start 01/29/17 at 16:00 Epoetin Larry (Epogen (Non Esrd/Non Oncology)) 3,000 units MoWeFr@17 SC Last administered on 02/10/17 17:57; Admin Dose 3,000 UNITS; Start 01/31/17 at 17:00 Aspirin (Ecotrin) 325 mg DAILY PO Last administered on 02/10/17 08:00; Admin Dose 325 MG; Start 01/31/17 at 09:00 Diltiazem HCl (Cardizem Iv) 5 mg Q4 PRN IV HR>110 Hold SBP<100; Start 01/30/17 at 20:30 IV Flush (NS 10 ml) 10 ml PRN PRN IV FLUSH LINE; Start 01/31/17 at 17:30 Oxycodone/ Acetaminophen (Percocet (5/ 325)) 1 tab Q4H PRN PO PAIN Last administered on 02/09/17 22:07; Admin Dose 1 TAB; Start 02/01/17 at 07:30 Levofloxacin (Levaquin) 500 mg Q2D@06 PO Last administered on 02/10/17 05:58; Admin Dose 500 MG; Start 02/02/17 at 06:00 Methylprednisolone Sodium Succinate 20 mg 20 mg Q12 IV Last administered on 08:02; Admin Dose 20 MG; Start 02/02/17 at 09:00 Piperacillin Sod/ Tazobactam Sod (Zosyn 2.25gm/ 50ml (Pmx)) 50 ml @ 100 mls/hr Q8 IVPB Last administered on 02/10/17 13:48; Admin Dose 100 MLS/HR; Start 10/10 at 22:00 Nitroglycerin (Nitroglycerin (Sl Tab) 0.4 Mg) 1 tab Q5M PRN SL ANGINA; Start at 14:30 Ondansetron HCl (Zofran Tab) 4 mg Q6H PRN PO NAUSEA AND/OR VOMITING; Start 11/09 at 14:30 Diphenhydramine HCl (Benadryl) 50 mg Q6H PRN PO ALLERGIC REACTION Last administered on 02/09/17 22:07; Admin Dose 50 MG; Start 02/02/17 at 22:30 Isosorbide Dinitrate (Isordil) 10 mg TID PO Last administered on 02/10/17 13: 51; Admin Dose 10 MG; Start 02/03/17 at 15:30 Al Hydrox/Mg Hydrox/Simethicone (Mag-Al Plus) 30 ml Q6H PRN PO GASTROINTESTINAL UPSET; Start 02/03/17 at 15:30 Benazepril HCl (Lotensin) 20 mg BID PO Last administered on 02/10/17 08:00; Admin Dose 20 MG; Start 02/03/17 at 21:00 Metoprolol Tartrate (Lopressor) 25 mg BID PO Last administered on 02/09/17 21: 03; Admin Dose 25 MG; Start 02/05/17 at 16:00; Status Future Hold Heparin Sodium (Porcine) (Heparin (5000 Units/0.5 ml)) 5,000 unit BID SC Last administered on 02/10/17 08:13; Admin Dose 5,000 UNIT; Start 02/05/17 at 16:00 Amiodarone HCl (Cordarone) 200 mg DAILY PO Last administered on 02/10/17 08:01 ; Admin Dose 200 MG; Start 02/08/17 at 09:00 EDWAR VARGAS Feb 10, 2017 18:44
[2017-02-10] MEDS: ATORVASTATIN 10 MG TAB PO SCH (20:18)
[2017-02-10] MEDS: OXYCODONE/ACETAMINOPHEN (5/325) TAB PO PRN (22:13)
[2017-02-10] MEDS: DIPHENHYDRAMINE 50 MG CAP PO PRN (22:13)
[2017-02-11] VITALS (13 sets, daily range): BP systolic 129–159; BP diastolic 65–74; PULSE 70–122; RESP 16–20
[2017-02-11] MEDS: DILTIAZEM 25 MG INJ IV PRN (03:27)
[2017-02-11] MEDS: PANTOPRAZOLE (EC) 40 MG TAB PO SCH (06:09)
[2017-02-11] MEDS: PIPER-TAZO 2.25 GM (PMX) 50 ML IVPB SCH ×3 (06:09→21:56)
[2017-02-11 06:50] LABS: ADD SCAN DIFF NO
[2017-02-11 06:51] LABS: BASOPHILS % 0.2 % (0.0-2.0); HEMATOCRIT 31.1 % (37.0-47.0); HEMOGLOBIN 9.9 g/dl (12.0-16.0); LYMPHOCYTES # 0.8 10^3/ul (0.8-2.9); LYMPHOCYTES % 4.3 % (15.0-51.0); MEAN CORPUSCULAR HEMOGLOBIN 31.3 pg (29.0-33.0); MEAN CORPUSCULAR HGB CONC 31.8 g/dl (32.0-37.0); MEAN CORPUSCULAR VOLUME 98.4 fl (82.0-101.0); MEAN PLATELET VOLUME 9.8 fl (7.4-10.4); MONOCYTE # 0.7 10^3/ul (0.3-0.9); MONOCYTES % 3.6 % (0.0-11.0); NEUTROPHIL # 15.9 10^3/ul (1.6-7.5); NEUTROPHILS % 88.2 % (39.0-77.0); NUCLEATED RED BLOOD CELLS% 0.2 /100WBC (0.0-0.0); PLATELET COUNT 271 10^3/UL (140-415); RED BLOOD COUNT 3.16 10^6/ul (4.20-5.40)
[2017-02-11 07:13] LABS: POTASSIUM 4.6 mmol/L (3.5-5.1)
[2017-02-11 07:16] LABS: CALCIUM 8.9 mg/dl (8.4-10.2); CREATININE 2.52 mg/dl (0.44-1.00)
[2017-02-11] MEDS: ALBUTEROL/IPRATROPIUM (NEB) 3 ML AMP HHN SCH ×3 (07:50→20:00)
[2017-02-11] MEDS: AMIODARONE 200 MG TAB PO SCH (08:10)
[2017-02-11] MEDS: ASPIRIN (EC) 325 MG TAB PO SCH (08:10)
[2017-02-11] MEDS: METHYLPREDNISOLONE 40 MG INJ IV SCH ×2 (08:11→20:24)
[2017-02-11] MEDS: ISOSORBIDE DINITRATE 10 MG TAB PO SCH ×3 (08:11→20:24)
[2017-02-11] MEDS: BENAZEPRIL 20 MG TAB PO SCH ×2 (08:11→20:24)
[2017-02-11] MEDS: HEPARIN 5,000 UNIT/0.5 ML SYG SC SCH ×2 (08:17→20:29)
[2017-02-11] MEDS: CALCIUM CARBONATE 500 MG CHEW TAB PO SCH ×2 (12:35→18:18)
--- NOTE | 2017-02-11 13:38 | CONS ---
Date/Time of Note Date/Time of Note DATE: 02/11/17 TIME: 13:35 Assessment/Plan Assessment/Plan Additional Assessment/Plan 86 yo female with 1) Acute Bronchitis 2) COPD Exacerbation 3) CKD Likely Stage IV 4) Anemia, Chronic Disease 5) AFib 6) Chronic HTN with Diastolic Dysfunction Stable renal function, Diuretic Rx as needed. CXR Reviewed, NO evidence of Edema Cont current Rx and Plan On Abx for Bronchitis, Dose to Stage IV CKD Will cont to monitor UO, Electrolytes and renal function Cont ASHLEY for Anemia, CKD NO acute indication for HD at this time. Consultation Date/Type/Reason Admit Date/Time Jan 31, 2017 at 15:05 Type of Consultation: Nephrology Referring Provider: LOREN ROSE MD Exam/Review of Systems Vital Signs Vitals Vital Signs Date Time Temp Pulse Resp B/P Pulse Ox O2 Delivery O2 Flow Rate FiO2 02/11/17 12:13 70 02/11/17 11:10 97.5 20 158/72 98 02/11/17 07:53 21 02/11/17 05:30 Room Air Intake and Output 02/10/17 02/10/17 02/11/17 15:00 23:00 07:00 Intake Total 50 ml 900 ml 450 ml Balance 50 ml 900 ml 450 ml Exam Constitutional: No distress ENMT: mucosa pink and moist Respiratory: clear to auscultation, No diminished breath sounds, No labored breathing Cardiovascular: irregular rhythm Gastrointestinal: non-tender, soft 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: GUIDE WINDER II-XII intact, nl mental status, No lethargic Results Result Diagram: 02/11/17 0626 02/11/17 0640 Results 24 hrs Laboratory Tests Test 02/11/17 06:26 02/11/17 06:40 Basophils # 0.0 Basophils % 0.2 Eosinophils # 0.0 Eosinophils % 0.0 Hematocrit 31.1 L Hemoglobin 9.9 L Lymphocytes # 0.8 Lymphocytes % 4.3 L Mean Corpuscular Hemoglobin 31.3 Mean Corpuscular Hemoglobin Concent 31.8 L Mean Corpuscular Volume 98.4 Mean Platelet Volume 9.8 Monocytes # 0.7 Monocytes % 3.6 Neutrophils # 15.9 H Neutrophils % 88.2 H Nucleated Red Blood Cells # 0.0 Nucleated Red Blood Cells % 0.2 H Platelet Count 271 Red Blood Count 3.16 L Red Cell Distribution Width 18.0 H White Blood Count 18.0 H Anion Gap 18 H Blood Urea Nitrogen 62 H Calcium Level 8.9 Carbon Dioxide Level 19 L Chloride Level 111 H Creatinine 2.52 H Glucose Level 150 Potassium Level 4.6 Sodium Level 143 Medications Medications Current Medications Acetaminophen (Tylenol Tab) 650 mg Q4H PRN PO PAIN AND OR ELEVATED TEMP Last administered on 01/29/17 18:54; Admin Dose 650 MG; Start 01/29/17 at 05:30 Guaifenesin/ Codeine Phosphate (Robitussin Ac Liquid Cup) 10 ml Q4H PRN PO COUGH Last administered on 02/07/17 17:58; Admin Dose 10 ML; Start 01/29/17 at 05:30 Atorvastatin Calcium (Lipitor) 10 mg HS PO Last administered on 02/10/17 20:18 ; Admin Dose 10 MG; Start 01/29/17 at 21:00 Pantoprazole (Protonix Tab) 40 mg DAILY@06 PO Last administered on 02/11/17 06 :09; Admin Dose 40 MG; Start 01/29/17 at 16:00 Epoetin Larry (Epogen (Non Esrd/Non Oncology)) 3,000 units MoWeFr@17 SC Last administered on 02/10/17 17:57; Admin Dose 3,000 UNITS; Start 01/31/17 at 17:00 Aspirin (Ecotrin) 325 mg DAILY PO Last administered on 02/11/17 08:10; Admin Dose 325 MG; Start 01/31/17 at 09:00 Diltiazem HCl (Cardizem Iv) 5 mg Q4 PRN IV HR>110 Hold SBP<100 Last administered on 02/11/17 03:27; Admin Dose 5 MG; Start 01/30/17 at 20:30 IV Flush (NS 10 ml) 10 ml PRN PRN IV FLUSH LINE; Start 01/31/17 at 17:30 Oxycodone/ Acetaminophen (Percocet (5/ 325)) 1 tab Q4H PRN PO PAIN Last administered on 02/10/17 22:13; Admin Dose 1 TAB; Start 02/01/17 at 07:30 Levofloxacin (Levaquin) 500 mg Q2D@06 PO Last administered on 02/10/17 05:58; Admin Dose 500 MG; Start 02/02/17 at 06:00 Methylprednisolone Sodium Succinate 20 mg 20 mg Q12 IV Last administered on 08:11; Admin Dose 20 MG; Start 02/02/17 at 09:00 Piperacillin Sod/ Tazobactam Sod (Zosyn 2.25gm/ 50ml (Pmx)) 50 ml @ 100 mls/hr Q8 IVPB Last administered on 02/11/17 06:09; Admin Dose 100 MLS/HR; Start 10/10 at 22:00 Nitroglycerin (Nitroglycerin (Sl Tab) 0.4 Mg) 1 tab Q5M PRN SL ANGINA; Start at 14:30 Ondansetron HCl (Zofran Tab) 4 mg Q6H PRN PO NAUSEA AND/OR VOMITING; Start 11/09 at 14:30 Diphenhydramine HCl (Benadryl) 50 mg Q6H PRN PO ALLERGIC REACTION Last administered on 02/10/17 22:13; Admin Dose 50 MG; Start 02/02/17 at 22:30 Isosorbide Dinitrate (Isordil) 10 mg TID PO Last administered on 02/11/17 12: 35; Admin Dose 10 MG; Start 02/03/17 at 15:30 Al Hydrox/Mg Hydrox/Simethicone (Mag-Al Plus) 30 ml Q6H PRN PO GASTROINTESTINAL UPSET; Start 02/03/17 at 15:30 Benazepril HCl (Lotensin) 20 mg BID PO Last administered on 02/11/17 08:11; Admin Dose 20 MG; Start 02/03/17 at 21:00 Metoprolol Tartrate (Lopressor) 25 mg BID PO Last administered on 02/09/17 21: 03; Admin Dose 25 MG; Start 02/05/17 at 16:00; Status Future Hold Heparin Sodium (Porcine) (Heparin (5000 Units/0.5 ml)) 5,000 unit BID SC Last administered on 02/11/17 08:17; Admin Dose 5,000 UNIT; Start 02/05/17 at 16:00 Amiodarone HCl (Cordarone) 200 mg DAILY PO Last administered on 02/11/17 08:10 ; Admin Dose 200 MG; Start 02/08/17 at 09:00 Procedures Procedures PROCEDURE: CHEST 1VW CLINICAL INDICATION: Shortness of breath TECHNIQUE: Single frontal view of the chest was obtained COMPARISON: 02/01/2017 FINDINGS: Stable right PICC. The cardiac size is mildly enlarged, stable. Aortic vascular calcifications are demonstrated. There is no pulmonary vascular congestion. Mild bronchial wall thickening is seen. The lungs are otherwise clear. No consolidation, effusion, or pneumothorax. Mild degenerative changes of the visualized osseous structures are visualized. IMPRESSION: 1. Mild bronchial wall thickening may be sequela of bronchitis, asthma, or other nonspecific airway inflammation. 2. Atherosclerosis. RPTAT:PP .Kelvin Ronquillo MD, MD Date Time Electronically viewed and signed by .Kelvin Ronquillo MD, MD on 02/10/2017 13:55 ERIN KOWALSKI MD Feb 11, 2017 13:38
--- NOTE | 2017-02-11 16:22 | PN ---
Date/Time of Note Date/Time of Note DATE: 02/11/17 TIME: 16:21 Assessment/Plan VTE Prophylaxis VTE Prophylaxis Intervention: heparin, SCD's Lines/Catheters IV Catheter Type (from [facility]): PICC Line Central line still needed: Yes Urinary Cath still in place: No Assessment/Plan Chief Complaint/Hosp Course ASSESSMENT AND PLAN: - Bradycardia, metoprolol is on hold, continue to follow-up cardiology recommendation, continue telemetry monitoring. - Possible bronchitis versus early pneumonia. Continue abx, continue breathing treatments. - Ecoli urinary tract infection, s/p treatment. - Diastolic dysfunction congestive heart failure. Dr. Iraheta is following and cardiology consultation, continue gentle diuresis. - Atrial fibrillation at controlled rate. Continue aspirin and metoprolol. - Hypertension. Continue metoprolol and benazepril. - Aortic stenosis. - Hyperlipidemia. Continue statin. - Possible chronic obstructive pulmonary disease exacerbation. Continue patient on breathing treatments, start the patient on steroids. Continue supplemental oxygen. - Stage IV chronic kidney disease. Kidney ultrasound is consistent with chronic kidney disease. Dr. Gordon is following in nephrology consultation. - Gout. Continue allopurinol. - Anemia of chronic disease, continue Epogen. Continue Lovenox for deep venous thrombosis prophylaxis and Protonix for peptic ulcer disease prophylaxis. Further recommendations based on clinical course. Plan of care discussed with Dr. Olivier. Problems: Subjective 24 Hr Interval Summary Free Text/Dictation Patient denies shortness of breath, remains afebrile. Exam/Review of Systems Vital Signs Vitals Vital Signs Date Time Temp Pulse Resp B/P Pulse Ox O2 Delivery O2 Flow Rate FiO2 02/11/17 15:29 98.3 84 20 144/66 98 02/11/17 14:28 21 02/11/17 05:30 Room Air Intake and Output 02/10/17 02/10/17 02/11/17 15:00 23:00 07:00 Intake Total 50 ml 900 ml 450 ml Balance 50 ml 900 ml 450 ml Exam Constitutional: alert, oriented Psych: no complaints Head: atraumatic, normocephalic Eyes: nl conjunctiva Neck: non-tender, supple Respiratory: other (Diminished at the bases) Cardiovascular: other (Irregularly irregular rhythm) Gastrointestinal: non-tender, soft Musculoskeletal: nl extremities to inspection, nl gait and stance Extremities: normal pulses 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: IT NETWORK ARCHITECT II-XII intact Results Result Diagram: 02/11/17 0626 02/11/17 0640 Results 24 hrs Laboratory Tests Test 02/11/17 06:26 02/11/17 06:40 Basophils # 0.0 Basophils % 0.2 Eosinophils # 0.0 Eosinophils % 0.0 Hematocrit 31.1 L Hemoglobin 9.9 L Lymphocytes # 0.8 Lymphocytes % 4.3 L Mean Corpuscular Hemoglobin 31.3 Mean Corpuscular Hemoglobin Concent 31.8 L Mean Corpuscular Volume 98.4 Mean Platelet Volume 9.8 Monocytes # 0.7 Monocytes % 3.6 Neutrophils # 15.9 H Neutrophils % 88.2 H Nucleated Red Blood Cells # 0.0 Nucleated Red Blood Cells % 0.2 H Platelet Count 271 Red Blood Count 3.16 L Red Cell Distribution Width 18.0 H White Blood Count 18.0 H Anion Gap 18 H Blood Urea Nitrogen 62 H Calcium Level 8.9 Carbon Dioxide Level 19 L Chloride Level 111 H Creatinine 2.52 H Glucose Level 150 Potassium Level 4.6 Sodium Level 143 Medications Medications Current Medications Acetaminophen (Tylenol Tab) 650 mg Q4H PRN PO PAIN AND OR ELEVATED TEMP Last administered on 01/29/17 18:54; Admin Dose 650 MG; Start 01/29/17 at 05:30 Guaifenesin/ Codeine Phosphate (Robitussin Ac Liquid Cup) 10 ml Q4H PRN PO COUGH Last administered on 02/07/17 17:58; Admin Dose 10 ML; Start 01/29/17 at 05:30 Atorvastatin Calcium (Lipitor) 10 mg HS PO Last administered on 02/10/17 20:18 ; Admin Dose 10 MG; Start 01/29/17 at 21:00 Pantoprazole (Protonix Tab) 40 mg DAILY@06 PO Last administered on 02/11/17 06 :09; Admin Dose 40 MG; Start 01/29/17 at 16:00 Epoetin Larry (Epogen (Non Esrd/Non Oncology)) 3,000 units MoWeFr@17 SC Last administered on 02/10/17 17:57; Admin Dose 3,000 UNITS; Start 01/31/17 at 17:00 Aspirin (Ecotrin) 325 mg DAILY PO Last administered on 02/11/17 08:10; Admin Dose 325 MG; Start 01/31/17 at 09:00 Diltiazem HCl (Cardizem Iv) 5 mg Q4 PRN IV HR>110 Hold SBP<100 Last administered on 02/11/17 03:27; Admin Dose 5 MG; Start 01/30/17 at 20:30 IV Flush (NS 10 ml) 10 ml PRN PRN IV FLUSH LINE; Start 01/31/17 at 17:30 Oxycodone/ Acetaminophen (Percocet (5/ 325)) 1 tab Q4H PRN PO PAIN Last administered on 02/10/17 22:13; Admin Dose 1 TAB; Start 02/01/17 at 07:30 Levofloxacin (Levaquin) 500 mg Q2D@06 PO Last administered on 02/10/17 05:58; Admin Dose 500 MG; Start 02/02/17 at 06:00 Methylprednisolone Sodium Succinate 20 mg 20 mg Q12 IV Last administered on 08:11; Admin Dose 20 MG; Start 02/02/17 at 09:00 Piperacillin Sod/ Tazobactam Sod (Zosyn 2.25gm/ 50ml (Pmx)) 50 ml @ 100 mls/hr Q8 IVPB Last administered on 02/11/17 13:54; Admin Dose 100 MLS/HR; Start 10/10 at 22:00 Nitroglycerin (Nitroglycerin (Sl Tab) 0.4 Mg) 1 tab Q5M PRN SL ANGINA; Start at 14:30 Ondansetron HCl (Zofran Tab) 4 mg Q6H PRN PO NAUSEA AND/OR VOMITING; Start 11/09 at 14:30 Diphenhydramine HCl (Benadryl) 50 mg Q6H PRN PO ALLERGIC REACTION Last administered on 02/10/17 22:13; Admin Dose 50 MG; Start 02/02/17 at 22:30 Isosorbide Dinitrate (Isordil) 10 mg TID PO Last administered on 02/11/17 12: 35; Admin Dose 10 MG; Start 02/03/17 at 15:30 Al Hydrox/Mg Hydrox/Simethicone (Mag-Al Plus) 30 ml Q6H PRN PO GASTROINTESTINAL UPSET; Start 02/03/17 at 15:30 Benazepril HCl (Lotensin) 20 mg BID PO Last administered on 02/11/17 08:11; Admin Dose 20 MG; Start 02/03/17 at 21:00 Metoprolol Tartrate (Lopressor) 25 mg BID PO Last administered on 02/09/17 21: 03; Admin Dose 25 MG; Start 02/05/17 at 16:00; Status Future Hold Heparin Sodium (Porcine) (Heparin (5000 Units/0.5 ml)) 5,000 unit BID SC Last administered on 02/11/17 08:17; Admin Dose 5,000 UNIT; Start 02/05/17 at 16:00 Amiodarone HCl (Cordarone) 200 mg DAILY PO Last administered on 02/11/17 08:10 ; Admin Dose 200 MG; Start 02/08/17 at 09:00 EDWAR VARGAS Feb 11, 2017 16:22
[2017-02-11] MEDS: ATORVASTATIN 10 MG TAB PO SCH (20:24)
[2017-02-11] MEDS: OXYCODONE/ACETAMINOPHEN (5/325) TAB PO PRN (21:56)
[2017-02-11] MEDS: DIPHENHYDRAMINE 50 MG CAP PO PRN (21:56)
[2017-02-12] VITALS (12 sets, daily range): BP systolic 130–158; BP diastolic 60–79; PULSE 60–135; RESP 16–18
[2017-02-12] MEDS: PIPER-TAZO 2.25 GM (PMX) 50 ML IVPB SCH ×2 (06:40→13:31)
[2017-02-12] MEDS: PANTOPRAZOLE (EC) 40 MG TAB PO SCH (06:40)
[2017-02-12] MEDS: LEVOFLOXACIN 500 MG TAB PO SCH (06:43)
[2017-02-12 08:04] LABS: ADD SCAN DIFF NO
[2017-02-12 08:11] LABS: BASOPHILS % 0.1 % (0.0-2.0); HEMATOCRIT 29.7 % (37.0-47.0); HEMOGLOBIN 9.5 g/dl (12.0-16.0); LYMPHOCYTES # 0.7 10^3/ul (0.8-2.9); LYMPHOCYTES % 3.5 % (15.0-51.0); MEAN CORPUSCULAR HEMOGLOBIN 31.3 pg (29.0-33.0); MEAN CORPUSCULAR VOLUME 97.7 fl (82.0-101.0); MEAN PLATELET VOLUME 10.1 fl (7.4-10.4); MONOCYTE # 0.6 10^3/ul (0.3-0.9); MONOCYTES % 3.2 % (0.0-11.0); NEUTROPHILS % 91.1 % (39.0-77.0); NUCLEATED RED BLOOD CELLS% 0.2 /100WBC (0.0-0.0); PLATELET COUNT 255 10^3/UL (140-415); RED BLOOD COUNT 3.04 10^6/ul (4.20-5.40); RED CELL DISTRIBUTION WIDTH 18.5 % (11.5-14.5); WHITE BLOOD COUNT 19.7 10^3/ul (4.8-10.8)
[2017-02-12 08:26] LABS: CREATININE 2.28 mg/dl (0.44-1.00)
[2017-02-12] MEDS: ASPIRIN (EC) 325 MG TAB PO SCH (08:48)
[2017-02-12] MEDS: CALCIUM CARBONATE 500 MG CHEW TAB PO SCH ×3 (08:48→18:06)
[2017-02-12] MEDS: METHYLPREDNISOLONE 40 MG INJ IV SCH (08:48)
[2017-02-12] MEDS: AMIODARONE 200 MG TAB PO SCH (08:49)
[2017-02-12] MEDS: BENAZEPRIL 20 MG TAB PO SCH ×2 (08:49→20:40)
[2017-02-12] MEDS: ISOSORBIDE DINITRATE 10 MG TAB PO SCH ×3 (08:50→20:40)
[2017-02-12] MEDS: ALBUTEROL/IPRATROPIUM (NEB) 3 ML AMP HHN SCH ×3 (09:01→20:00)
[2017-02-12] MEDS: HEPARIN 5,000 UNIT/0.5 ML SYG SC SCH ×2 (09:12→20:42)
--- NOTE | 2017-02-12 10:42 | CONS ---
Date/Time of Note Date/Time of Note DATE: 02/12/17 TIME: 10:40 Assessment/Plan Assessment/Plan Chief Complaint/Hosp Course IMPRESSION: 1. Atrial fibrillation, not currently on systemic anticoagulation but on asa, rate controlled and currently in SR/SB-Had recurrent AF/AFL to 150 friday. Now recurrent AF with RVR 2. Shortness of breath, assess for congestive heart failure. 3. Diastolic dysfunction by 2D echo this admission.-CHF by cxr 02/01 4. Hypertension. 5. Possible chronic obstructive pulmonary disease. 6. Possible bronchitis. 7. Possible pneumonia. 8. Dyslipidemia. 9. Chronic kidney disease. 10. Anemia. 11. Leukocytosis 12. Chest pain-improved/negative troponin x 2/NO changes on ECG 14. 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 Recc: -Tele -serial ecg;'s -Continue asa/statin/isordil/ACEI -Continue steroids/bronchodilators/abx's -Continue SQ heparin -Continue low dose amio -Now having recurrent AF with RVR and thus will give CCB and fiollow HR response if again becomes twan will require PPM for tachy-twan syndrome Problems: Consultation Date/Type/Reason Admit Date/Time Jan 31, 2017 at 15:05 Initial Consult Date 01/30/2017 Type of Consultation: Cardiology Reason for Consultation tachy-twan Referring Provider: LOREN ROSE MD Exam/Review of Systems Vital Signs Vitals Vital Signs Date Time Temp Pulse Resp B/P Pulse Ox O2 Delivery O2 Flow Rate FiO2 02/12/17 10:30 135 154/79 02/12/17 09:02 20 97 21 02/12/17 07:25 97.6 02/11/17 05:30 Room Air Intake and Output 02/11/17 02/11/17 02/12/17 15:00 23:00 07:00 Intake Total 100 ml 500 ml Balance 100 ml 500 ml Exam Review of Systems: CONSTITUTIONAL: No fevers, chills. PULMONARY: mild sob CARDIOVASCULAR: No chest pain/palpitations GASTROINTESTINAL: No nausea/vomiting. GENITOURINARY: No hematuria/dysuria. MUSCULOSKELETAL: No myagias/arthalgias. PSYCHIATRIC: The patient denies depression. NEUROLOGIC: No weakness Constitutional: alert, oriented Psych: no complaints Head: normocephalic ENMT: mucosa pink and moist Neck: jvd, supple Respiratory: diminished breath sounds (at bases/B) Cardiovascular: irregular rhythm (tachycardic) Gastrointestinal: non-tender, soft Musculoskeletal: muscle tone (normal) Extremities: edema (tarce) 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: other (No fopcal deficits) Results Result Diagram: 02/12/17 0740 02/12/17 0740 Results 24 hrs Laboratory Tests Test 02/12/17 07:40 Anion Gap 16 Basophils # 0.0 Basophils % 0.1 Blood Urea Nitrogen 65 H Calcium Level 9.0 Carbon Dioxide Level 18 L Chloride Level 113 H Creatinine 2.28 H Eosinophils # 0.0 Eosinophils % 0.0 Glucose Level 93 # Hematocrit 29.7 L Hemoglobin 9.5 L Lymphocytes # 0.7 L Lymphocytes % 3.5 L Magnesium Level 2.0 Mean Corpuscular Hemoglobin 31.3 Mean Corpuscular Hemoglobin Concent 32.0 Mean Corpuscular Volume 97.7 Mean Platelet Volume 10.1 Monocytes # 0.6 Monocytes % 3.2 Neutrophils # 18.0 H Neutrophils % 91.1 H Nucleated Red Blood Cells # 0.0 Nucleated Red Blood Cells % 0.2 H Platelet Count 255 Potassium Level 5.0 Red Blood Count 3.04 L Red Cell Distribution Width 18.5 H Sodium Level 142 White Blood Count 19.7 H Medications Medications Current Medications Acetaminophen (Tylenol Tab) 650 mg Q4H PRN PO PAIN AND OR ELEVATED TEMP Last administered on 01/29/17 18:54; Admin Dose 650 MG; Start 01/29/17 at 05:30 Guaifenesin/ Codeine Phosphate (Robitussin Ac Liquid Cup) 10 ml Q4H PRN PO COUGH Last administered on 02/07/17 17:58; Admin Dose 10 ML; Start 01/29/17 at 05:30 Atorvastatin Calcium (Lipitor) 10 mg HS PO Last administered on 02/11/17 20:24 ; Admin Dose 10 MG; Start 01/29/17 at 21:00 Pantoprazole (Protonix Tab) 40 mg DAILY@06 PO Last administered on 02/12/17 06 :40; Admin Dose 40 MG; Start 01/29/17 at 16:00 Epoetin Larry (Epogen (Non Esrd/Non Oncology)) 3,000 units MoWeFr@17 SC Last administered on 02/10/17 17:57; Admin Dose 3,000 UNITS; Start 01/31/17 at 17:00 Aspirin (Ecotrin) 325 mg DAILY PO Last administered on 02/12/17 08:48; Admin Dose 325 MG; Start 01/31/17 at 09:00 Diltiazem HCl (Cardizem Iv) 5 mg Q4 PRN IV HR>110 Hold SBP<100 Last administered on 02/11/17 03:27; Admin Dose 5 MG; Start 01/30/17 at 20:30 IV Flush (NS 10 ml) 10 ml PRN PRN IV FLUSH LINE; Start 01/31/17 at 17:30 Oxycodone/ Acetaminophen (Percocet (5/ 325)) 1 tab Q4H PRN PO PAIN Last administered on 02/11/17 21:56; Admin Dose 1 TAB; Start 02/01/17 at 07:30 Levofloxacin (Levaquin) 500 mg Q2D@06 PO Last administered on 02/12/17 06:43; Admin Dose 500 MG; Start 02/02/17 at 06:00 Methylprednisolone Sodium Succinate 20 mg 20 mg Q12 IV Last administered on 08:48; Admin Dose 20 MG; Start 02/02/17 at 09:00 Piperacillin Sod/ Tazobactam Sod (Zosyn 2.25gm/ 50ml (Pmx)) 50 ml @ 100 mls/hr Q8 IVPB Last administered on 02/12/17 06:40; Admin Dose 100 MLS/HR; Start 10/10 at 22:00 Nitroglycerin (Nitroglycerin (Sl Tab) 0.4 Mg) 1 tab Q5M PRN SL ANGINA; Start at 14:30 Ondansetron HCl (Zofran Tab) 4 mg Q6H PRN PO NAUSEA AND/OR VOMITING; Start 11/09 at 14:30 Diphenhydramine HCl (Benadryl) 50 mg Q6H PRN PO ALLERGIC REACTION Last administered on 02/11/17 21:56; Admin Dose 50 MG; Start 02/02/17 at 22:30 Isosorbide Dinitrate (Isordil) 10 mg TID PO Last administered on 02/12/17 08: 50; Admin Dose 10 MG; Start 02/03/17 at 15:30 Al Hydrox/Mg Hydrox/Simethicone (Mag-Al Plus) 30 ml Q6H PRN PO GASTROINTESTINAL UPSET; Start 02/03/17 at 15:30 Benazepril HCl (Lotensin) 20 mg BID PO Last administered on 02/12/17 08:49; Admin Dose 20 MG; Start 02/03/17 at 21:00 Metoprolol Tartrate (Lopressor) 25 mg BID PO Last administered on 02/09/17 21: 03; Admin Dose 25 MG; Start 02/05/17 at 16:00; Status Future Hold Heparin Sodium (Porcine) (Heparin (5000 Units/0.5 ml)) 5,000 unit BID SC Last administered on 02/12/17 09:12; Admin Dose 5,000 UNIT; Start 02/05/17 at 16:00 Amiodarone HCl (Cordarone) 200 mg DAILY PO Last administered on 02/12/17 08:49 ; Admin Dose 200 MG; Start 02/08/17 at 09:00 ALVINA GARCIA Feb 12, 2017 10:42
--- NOTE | 2017-02-12 11:38 | CONS ---
Date/Time of Note Date/Time of Note DATE: 02/12/17 TIME: 11:37 Assessment/Plan Assessment/Plan Additional Assessment/Plan 86 yo female with 1) Acute Bronchitis 2) COPD Exacerbation 3) CKD Likely Stage IV 4) Anemia, Chronic Disease 5) AFib 6) Chronic HTN with Diastolic Dysfunction 7) Metabolic Acidosis, CKD Stable renal function, Diuretic Rx as needed. CXR Reviewed, NO evidence of Edema Cont current Rx and Plan On Abx for Bronchitis, Dose to Stage IV CKD Will cont to monitor UO, Electrolytes and renal function Cont ASHLEY for Anemia, CKD NO acute indication for HD at this time. Consultation Date/Type/Reason Admit Date/Time Jan 31, 2017 at 15:05 Type of Consultation: Renal Referring Provider: LOREN ROSE MD 24 HR Interval Summary Free Text/Dictation PT doesnt have any complaints at this time, Exam/Review of Systems Vital Signs Vitals Vital Signs Date Time Temp Pulse Resp B/P Pulse Ox O2 Delivery O2 Flow Rate FiO2 02/12/17 11:13 98.2 97 18 139/64 94 02/12/17 09:02 21 02/11/17 05:30 Room Air Intake and Output 02/11/17 02/11/17 02/12/17 15:00 23:00 07:00 Intake Total 100 ml 500 ml Balance 100 ml 500 ml Exam Constitutional: No distress ENMT: mucosa pink and moist Respiratory: clear to auscultation, No diminished breath sounds, No labored breathing Cardiovascular: irregular rhythm, No edema Gastrointestinal: non-tender, soft Extremities: No pitting pedal edema 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: SKOOG MACHINE OPERATOR II-XII intact, nl mental status Results Result Diagram: 02/12/17 0740 02/12/17 0740 Results 24 hrs Laboratory Tests Test 02/12/17 07:40 White Blood Count 19.7 H Red Blood Count 3.04 L Hemoglobin 9.5 L Hematocrit 29.7 L Mean Corpuscular Volume 97.7 Mean Corpuscular Hemoglobin 31.3 Mean Corpuscular Hemoglobin Concent 32.0 Red Cell Distribution Width 18.5 H Platelet Count 255 Mean Platelet Volume 10.1 Neutrophils % 91.1 H Lymphocytes % 3.5 L Monocytes % 3.2 Eosinophils % 0.0 Basophils % 0.1 Nucleated Red Blood Cells % 0.2 H Neutrophils # 18.0 H Lymphocytes # 0.7 L Monocytes # 0.6 Eosinophils # 0.0 Basophils # 0.0 Nucleated Red Blood Cells # 0.0 Sodium Level 142 Potassium Level 5.0 Chloride Level 113 H Carbon Dioxide Level 18 L Anion Gap 16 Blood Urea Nitrogen 65 H Creatinine 2.28 H Glucose Level 93 # Calcium Level 9.0 Magnesium Level 2.0 Medications Medications Current Medications Acetaminophen (Tylenol Tab) 650 mg Q4H PRN PO PAIN AND OR ELEVATED TEMP Last administered on 01/29/17 18:54; Admin Dose 650 MG; Start 01/29/17 at 05:30 Guaifenesin/ Codeine Phosphate (Robitussin Ac Liquid Cup) 10 ml Q4H PRN PO COUGH Last administered on 02/07/17 17:58; Admin Dose 10 ML; Start 01/29/17 at 05:30 Atorvastatin Calcium (Lipitor) 10 mg HS PO Last administered on 02/11/17 20:24 ; Admin Dose 10 MG; Start 01/29/17 at 21:00 Pantoprazole (Protonix Tab) 40 mg DAILY@06 PO Last administered on 02/12/17 06 :40; Admin Dose 40 MG; Start 01/29/17 at 16:00 Epoetin Larry (Epogen (Non Esrd/Non Oncology)) 3,000 units MoWeFr@17 SC Last administered on 02/10/17 17:57; Admin Dose 3,000 UNITS; Start 01/31/17 at 17:00 Aspirin (Ecotrin) 325 mg DAILY PO Last administered on 02/12/17 08:48; Admin Dose 325 MG; Start 01/31/17 at 09:00 Diltiazem HCl (Cardizem Iv) 5 mg Q4 PRN IV HR>110 Hold SBP<100 Last administered on 02/11/17 03:27; Admin Dose 5 MG; Start 01/30/17 at 20:30 IV Flush (NS 10 ml) 10 ml PRN PRN IV FLUSH LINE; Start 01/31/17 at 17:30 Oxycodone/ Acetaminophen (Percocet (5/ 325)) 1 tab Q4H PRN PO PAIN Last administered on 02/11/17 21:56; Admin Dose 1 TAB; Start 02/01/17 at 07:30 Levofloxacin (Levaquin) 500 mg Q2D@06 PO Last administered on 02/12/17 06:43; Admin Dose 500 MG; Start 02/02/17 at 06:00 Methylprednisolone Sodium Succinate 20 mg 20 mg Q12 IV Last administered on 08:48; Admin Dose 20 MG; Start 02/02/17 at 09:00 Piperacillin Sod/ Tazobactam Sod (Zosyn 2.25gm/ 50ml (Pmx)) 50 ml @ 100 mls/hr Q8 IVPB Last administered on 02/12/17 06:40; Admin Dose 100 MLS/HR; Start 10/10 at 22:00 Nitroglycerin (Nitroglycerin (Sl Tab) 0.4 Mg) 1 tab Q5M PRN SL ANGINA; Start at 14:30 Ondansetron HCl (Zofran Tab) 4 mg Q6H PRN PO NAUSEA AND/OR VOMITING; Start 11/09 at 14:30 Diphenhydramine HCl (Benadryl) 50 mg Q6H PRN PO ALLERGIC REACTION Last administered on 02/11/17 21:56; Admin Dose 50 MG; Start 02/02/17 at 22:30 Isosorbide Dinitrate (Isordil) 10 mg TID PO Last administered on 02/12/17 08: 50; Admin Dose 10 MG; Start 02/03/17 at 15:30 Al Hydrox/Mg Hydrox/Simethicone (Mag-Al Plus) 30 ml Q6H PRN PO GASTROINTESTINAL UPSET; Start 02/03/17 at 15:30 Benazepril HCl (Lotensin) 20 mg BID PO Last administered on 02/12/17 08:49; Admin Dose 20 MG; Start 02/03/17 at 21:00 Metoprolol Tartrate (Lopressor) 25 mg BID PO Last administered on 02/09/17 21: 03; Admin Dose 25 MG; Start 02/05/17 at 16:00; Status Future Hold Heparin Sodium (Porcine) (Heparin (5000 Units/0.5 ml)) 5,000 unit BID SC Last administered on 02/12/17 09:12; Admin Dose 5,000 UNIT; Start 02/05/17 at 16:00 Amiodarone HCl (Cordarone) 200 mg DAILY PO Last administered on 02/12/17 08:49 ; Admin Dose 200 MG; Start 02/08/17 at 09:00 Diltiazem HCl (Cardizem) 30 mg Q8 PO ; Start 02/12/17 at 14:00 ERIN KOWALSKI MD Feb 12, 2017 11:38
[2017-02-12] MEDS: DILTIAZEM 30 MG TAB PO SCH ×2 (13:32→21:59)
[2017-02-12] MEDS: EPOETIN 3000 UNITS/ML (NON ESRD/NON ONCOLOGY) SC SCH (16:23)
--- NOTE | 2017-02-12 18:51 | PN ---
Date/Time of Note Date/Time of Note DATE: 02/12/17 TIME: 18:46 Assessment/Plan VTE Prophylaxis VTE Prophylaxis Intervention: SCD's Lines/Catheters IV C[facility]ter Type (from [facility] PICC Line Central line still needed: Yes Urinary Cath still in place: No Assessment/Plan Chief Complaint/Hosp Course ASSESSMENT AND PLAN: - Recurrent atrial fibrillation with RVR, continue Cardizem and amiodarone, continue telemetry monitoring, follow-up cardiology recommendations. - Bradycardia, patient is undergoing evaluation for pacemaker, continue to follow-up cardiology recommendation, continue telemetry monitoring. - Possible bronchitis versus early pneumonia. s/p treatment., continue breathing treatments. - Ecoli urinary tract infection, s/p treatment. - Diastolic dysfunction congestive heart failure. Dr. Iraheta is following and cardiology consultation, continue gentle diuresis. - Atrial fibrillation at controlled rate. Continue aspirin and metoprolol. - Hypertension. Continue metoprolol and benazepril. - Aortic stenosis. - Hyperlipidemia. Continue statin. - Possible chronic obstructive pulmonary disease exacerbation. Continue patient on breathing treatments, steroids taper. - Stage IV chronic kidney disease. Kidney ultrasound is consistent with chronic kidney disease. Dr. Gordon is following in nephrology consultation. - Gout. Continue allopurinol. - Anemia of chronic disease, continue Epogen. Continue Lovenox for deep venous thrombosis prophylaxis and Protonix for peptic ulcer disease prophylaxis. Further recommendations based on clinical course. Plan of care discussed with Dr. Olivier. Problems: Subjective 24 Hr Interval Summary Free Text/Dictation Patient had an episode of atrial fibrillation with rapid ventricular response today, continue telemetry monitoring, patient denies shortness of breath, denies chest pain. Exam/Review of Systems Vital Signs Vitals Vital Signs Date Time Temp Pulse Resp B/P Pulse Ox O2 Delivery O2 Flow Rate FiO2 02/12/17 16:14 85 02/12/17 15:08 98.4 18 130/61 96 02/12/17 13:51 21 02/11/17 05:30 Room Air Intake and Output 02/11/17 02/11/17 02/12/17 15:00 23:00 07:00 Intake Total 100 ml 500 ml Balance 100 ml 500 ml Exam Constitutional: alert, oriented Psych: no complaints Head: atraumatic, normocephalic Eyes: nl conjunctiva Neck: non-tender, supple Respiratory: other (Diminished at the bases) Cardiovascular: other (Irregularly irregular rhythm) Gastrointestinal: non-tender, soft Musculoskeletal: nl extremities to inspection, nl gait and stance Extremities: normal pulses 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: CLOTH PRESSER II-XII intact Results Result Diagram: 02/12/17 0740 02/12/17 0740 Results 24 hrs Laboratory Tests Test 02/12/17 07:40 White Blood Count 19.7 H Red Blood Count 3.04 L Hemoglobin 9.5 L Hematocrit 29.7 L Mean Corpuscular Volume 97.7 Mean Corpuscular Hemoglobin 31.3 Mean Corpuscular Hemoglobin Concent 32.0 Red Cell Distribution Width 18.5 H Platelet Count 255 Mean Platelet Volume 10.1 Neutrophils % 91.1 H Lymphocytes % 3.5 L Monocytes % 3.2 Eosinophils % 0.0 Basophils % 0.1 Nucleated Red Blood Cells % 0.2 H Neutrophils # 18.0 H Lymphocytes # 0.7 L Monocytes # 0.6 Eosinophils # 0.0 Basophils # 0.0 Nucleated Red Blood Cells # 0.0 Sodium Level 142 Potassium Level 5.0 Chloride Level 113 H Carbon Dioxide Level 18 L Anion Gap 16 Blood Urea Nitrogen 65 H Creatinine 2.28 H Glucose Level 93 # Calcium Level 9.0 Magnesium Level 2.0 Medications Medications Current Medications Acetaminophen (Tylenol Tab) 650 mg Q4H PRN PO PAIN AND OR ELEVATED TEMP Last administered on 01/29/17 18:54; Admin Dose 650 MG; Start 01/29/17 at 05:30 Guaifenesin/ Codeine Phosphate (Robitussin Ac Liquid Cup) 10 ml Q4H PRN PO COUGH Last administered on 02/07/17 17:58; Admin Dose 10 ML; Start 01/29/17 at 05:30 Atorvastatin Calcium (Lipitor) 10 mg HS PO Last administered on 02/11/17 20:24 ; Admin Dose 10 MG; Start 01/29/17 at 21:00 Pantoprazole (Protonix Tab) 40 mg DAILY@06 PO Last administered on 02/12/17 06 :40; Admin Dose 40 MG; Start 01/29/17 at 16:00 Epoetin Larry (Epogen (Non Esrd/Non Oncology)) 3,000 units MoWeFr@17 SC Last administered on 02/12/17 16:23; Admin Dose 3,000 UNITS; Start 01/31/17 at 17:00 Aspirin (Ecotrin) 325 mg DAILY PO Last administered on 02/12/17 08:48; Admin Dose 325 MG; Start 01/31/17 at 09:00 Diltiazem HCl (Cardizem Iv) 5 mg Q4 PRN IV HR>110 Hold SBP<100 Last administered on 02/11/17 03:27; Admin Dose 5 MG; Start 01/30/17 at 20:30 IV Flush (NS 10 ml) 10 ml PRN PRN IV FLUSH LINE; Start 01/31/17 at 17:30 Oxycodone/ Acetaminophen (Percocet (5/ 325)) 1 tab Q4H PRN PO PAIN Last administered on 02/11/17 21:56; Admin Dose 1 TAB; Start 02/01/17 at 07:30 Levofloxacin (Levaquin) 500 mg Q2D@06 PO Last administered on 02/12/17 06:43; Admin Dose 500 MG; Start 02/02/17 at 06:00 Methylprednisolone Sodium Succinate 20 mg 20 mg Q12 IV Last administered on 08:48; Admin Dose 20 MG; Start 02/02/17 at 09:00 Piperacillin Sod/ Tazobactam Sod (Zosyn 2.25gm/ 50ml (Pmx)) 50 ml @ 100 mls/hr Q8 IVPB Last administered on 02/12/17 13:31; Admin Dose 100 MLS/HR; Start 10/10 at 22:00 Nitroglycerin (Nitroglycerin (Sl Tab) 0.4 Mg) 1 tab Q5M PRN SL ANGINA; Start at 14:30 Ondansetron HCl (Zofran Tab) 4 mg Q6H PRN PO NAUSEA AND/OR VOMITING; Start 11/09 at 14:30 Diphenhydramine HCl (Benadryl) 50 mg Q6H PRN PO ALLERGIC REACTION Last administered on 02/11/17 21:56; Admin Dose 50 MG; Start 02/02/17 at 22:30 Isosorbide Dinitrate (Isordil) 10 mg TID PO Last administered on 02/12/17 13: 31; Admin Dose 10 MG; Start 02/03/17 at 15:30 Al Hydrox/Mg Hydrox/Simethicone (Mag-Al Plus) 30 ml Q6H PRN PO GASTROINTESTINAL UPSET; Start 02/03/17 at 15:30 Benazepril HCl (Lotensin) 20 mg BID PO Last administered on 02/12/17 08:49; Admin Dose 20 MG; Start 02/03/17 at 21:00 Metoprolol Tartrate (Lopressor) 25 mg BID PO Last administered on 02/09/17 21: 03; Admin Dose 25 MG; Start 02/05/17 at 16:00; Status Future Hold Heparin Sodium (Porcine) (Heparin (5000 Units/0.5 ml)) 5,000 unit BID SC Last administered on 02/12/17 09:12; Admin Dose 5,000 UNIT; Start 02/05/17 at 16:00 Amiodarone HCl (Cordarone) 200 mg DAILY PO Last administered on 02/12/17 08:49 ; Admin Dose 200 MG; Start 02/08/17 at 09:00 Diltiazem HCl (Cardizem) 30 mg Q8 PO Last administered on 02/12/17 13:32; Admin Dose 30 MG; Start 02/12/17 at 14:00 EDWAR VARGAS Feb 12, 2017 18:51 EDWAR VARGAS Feb 12, 2017 18:51
[2017-02-12] MEDS: ATORVASTATIN 10 MG TAB PO SCH (20:39)
[2017-02-12] MEDS: OXYCODONE/ACETAMINOPHEN (5/325) TAB PO PRN (22:00)
[2017-02-13] VITALS (11 sets, daily range): BP systolic 121–151; BP diastolic 57–68; PULSE 66–85; RESP 16–18
[2017-02-13] MEDS: DILTIAZEM 30 MG TAB PO SCH ×3 (05:49→22:00)
[2017-02-13] MEDS: PANTOPRAZOLE (EC) 40 MG TAB PO SCH (05:49)
[2017-02-13] MEDS: ALBUTEROL/IPRATROPIUM (NEB) 3 ML AMP HHN SCH ×3 (07:42→19:29)
[2017-02-13] MEDS: AMIODARONE 200 MG TAB PO SCH (08:27)
[2017-02-13] MEDS: BENAZEPRIL 20 MG TAB PO SCH ×2 (08:27→21:06)
[2017-02-13] MEDS: ASPIRIN (EC) 325 MG TAB PO SCH (08:27)
[2017-02-13] MEDS: CALCIUM CARBONATE 500 MG CHEW TAB PO SCH ×3 (08:27→16:59)
[2017-02-13] MEDS: ISOSORBIDE DINITRATE 10 MG TAB PO SCH ×3 (08:28→21:06)
[2017-02-13] MEDS: METHYLPREDNISOLONE 40 MG INJ IV SCH (08:29)
[2017-02-13] MEDS: HEPARIN 5,000 UNIT/0.5 ML SYG SC SCH ×2 (08:46→21:00)
--- NOTE | 2017-02-13 10:35 | RADRPT ---
Vent Rate: 129 bpm RR Interval: 0 msec [place] Interval: 0 msec QRS Duration: 68 msec QT Interval: 310 msec QTC Interval: 454 msec P-R-T [place]: 0 - 26 - 40 degrees Atrial fibrillation with rapid ventricular response Nonspecific ST abnormality , probably digitalis effect Abnormal ECG Electronically Signed By: Abdoul Braxton [id number]
--- NOTE | 2017-02-13 12:54 | CONS ---
Date/Time of Note Date/Time of Note DATE: 02/13/17 TIME: 12:51 Assessment/Plan Assessment/Plan Chief Complaint/Hosp Course IMPRESSION: 1. Atrial fibrillation, not currently on systemic anticoagulation but on asa, rate controlled and currently in SR/SB-Had recurrent AF/AFL 02/12 and now back in SR 2. Shortness of breath, assess for congestive heart failure. 3. Diastolic dysfunction by 2D echo this admission.-CHF by cxr 02/01 4. Hypertension. 5. Possible chronic obstructive pulmonary disease. 6. Possible bronchitis. 7. Possible pneumonia. 8. Dyslipidemia. 9. Chronic kidney disease. 10. Anemia. 11. Leukocytosis 12. Chest pain-improved/negative troponin x 2/NO changes on ECG 14. 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-no recurrent twan at this time of low dose dilt/amio Recc: -Tele -Continue asa/statin/isordil/ACEI -Continue steroids/bronchodilators/abx's -Continue SQ heparin -Continue low dose amio -Now having recurrent AF with RVR and thus will give CCB and fiollow HR response if again becomes twan will require PPM for tachy-twan syndrome but as of now tolerating medications well without sig twan -Follow volume status closely Problems: Consultation Date/Type/Reason Admit Date/Time Jan 31, 2017 at 15:05 Initial Consult Date 01/30/2017 Type of Consultation: Cardiology Reason for Consultation PAF/bradycardia Referring Provider: LOREN ROSE MD Exam/Review of Systems Vital Signs Vitals Vital Signs Date Time Temp Pulse Resp B/P Pulse Ox O2 Delivery O2 Flow Rate FiO2 02/13/17 12:09 77 02/13/17 11:14 97.6 18 146/65 99 02/13/17 07:42 21 02/11/17 05:30 Room Air Intake and Output 02/12/17 02/12/17 02/13/17 15:00 23:00 07:00 Intake Total 840 ml 500 ml Balance 840 ml 500 ml Exam Review of Systems: CONSTITUTIONAL: No fevers, chills. PULMONARY: Mild sob CARDIOVASCULAR: No chest pain/palpitations GASTROINTESTINAL: No nausea/vomiting. GENITOURINARY: No hematuria/dysuria. MUSCULOSKELETAL: No myagias/arthalgias. PSYCHIATRIC: The patient denies depression. NEUROLOGIC: No weakness Constitutional: alert Psych: no complaints Head: normocephalic ENMT: mucosa pink and moist Neck: jvd (9 cm water), supple Respiratory: diminished breath sounds (at bases/B) Cardiovascular: regular rate and rhythm Gastrointestinal: non-tender, soft Musculoskeletal: muscle tone (normal) Extremities: edema (trace/B) 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: other (No focal deficits) Results Result Diagram: 02/12/17 0740 02/12/17 0740 Medications Medications Current Medications Acetaminophen (Tylenol Tab) 650 mg Q4H PRN PO PAIN AND OR ELEVATED TEMP Last administered on 01/29/17 18:54; Admin Dose 650 MG; Start 01/29/17 at 05:30 Guaifenesin/ Codeine Phosphate (Robitussin Ac Liquid Cup) 10 ml Q4H PRN PO COUGH Last administered on 02/07/17 17:58; Admin Dose 10 ML; Start 01/29/17 at 05:30 Atorvastatin Calcium (Lipitor) 10 mg HS PO Last administered on 02/12/17 20:39 ; Admin Dose 10 MG; Start 01/29/17 at 21:00 Pantoprazole (Protonix Tab) 40 mg DAILY@06 PO Last administered on 02/13/17 05 :49; Admin Dose 40 MG; Start 01/29/17 at 16:00 Epoetin Larry (Epogen (Non Esrd/Non Oncology)) 3,000 units MoWeFr@17 SC Last administered on 02/12/17 16:23; Admin Dose 3,000 UNITS; Start 01/31/17 at 17:00 Aspirin (Ecotrin) 325 mg DAILY PO Last administered on 02/13/17 08:27; Admin Dose 325 MG; Start 01/31/17 at 09:00 Diltiazem HCl (Cardizem Iv) 5 mg Q4 PRN IV HR>110 Hold SBP<100 Last administered on 02/11/17 03:27; Admin Dose 5 MG; Start 01/30/17 at 20:30 IV Flush (NS 10 ml) 10 ml PRN PRN IV FLUSH LINE; Start 01/31/17 at 17:30 Oxycodone/ Acetaminophen (Percocet (5/ 325)) 1 tab Q4H PRN PO PAIN Last administered on 02/12/17 22:00; Admin Dose 1 TAB; Start 02/01/17 at 07:30 Nitroglycerin (Nitroglycerin (Sl Tab) 0.4 Mg) 1 tab Q5M PRN SL ANGINA; Start at 14:30 Ondansetron HCl (Zofran Tab) 4 mg Q6H PRN PO NAUSEA AND/OR VOMITING; Start 11/09 at 14:30 Diphenhydramine HCl (Benadryl) 50 mg Q6H PRN PO ALLERGIC REACTION Last administered on 02/11/17 21:56; Admin Dose 50 MG; Start 02/02/17 at 22:30 Isosorbide Dinitrate (Isordil) 10 mg TID PO Last administered on 02/13/17 08: 28; Admin Dose 10 MG; Start 02/03/17 at 15:30 Al Hydrox/Mg Hydrox/Simethicone (Mag-Al Plus) 30 ml Q6H PRN PO GASTROINTESTINAL UPSET; Start 02/03/17 at 15:30 Benazepril HCl (Lotensin) 20 mg BID PO Last administered on 02/13/17 08:27; Admin Dose 20 MG; Start 02/03/17 at 21:00 Metoprolol Tartrate (Lopressor) 25 mg BID PO Last administered on 02/09/17 21: 03; Admin Dose 25 MG; Start 02/05/17 at 16:00; Status Future Hold Heparin Sodium (Porcine) (Heparin (5000 Units/0.5 ml)) 5,000 unit BID SC Last administered on 02/13/17 08:46; Admin Dose 5,000 UNIT; Start 02/05/17 at 16:00 Amiodarone HCl (Cordarone) 200 mg DAILY PO Last administered on 02/13/17 08:27 ; Admin Dose 200 MG; Start 02/08/17 at 09:00 Diltiazem HCl (Cardizem) 30 mg Q8 PO Last administered on 02/13/17 05:49; Admin Dose 30 MG; Start 02/12/17 at 14:00 Methylprednisolone Sodium Succinate (Solu-Medrol) 20 mg DAILY IV Last administered on 02/13/17 08:29; Admin Dose 20 MG; Start 02/13/17 at 09:00 ALVINA GARCIA 23, 2017 12:54
--- NOTE | 2017-02-13 18:26 | PN ---
Date/Time of Note Date/Time of Note DATE: 02/13/17 TIME: 18:23 Assessment/Plan VTE Prophylaxis VTE Prophylaxis Intervention: other Lines/Catheters IV [facility] PICC Line Urinary Cath still in place: No Assessment/Plan Assessment/Plan - Recurrent atrial fibrillation with RVR, continue Cardizem and amiodarone, continue telemetry monitoring, follow-up cardiology recommendations. - Bradycardia, patient is undergoing evaluation for pacemaker, continue to follow-up cardiology recommendation, continue telemetry monitoring. - Possible bronchitis versus early pneumonia. s/p treatment., continue breathing treatments. - Ecoli urinary tract infection, s/p treatment. - Diastolic dysfunction congestive heart failure. Dr. rIaheta is following and cardiology consultation, continue gentle diuresis. - Atrial fibrillation at controlled rate. Continue aspirin and metoprolol. - Hypertension. Continue metoprolol and benazepril. - Aortic stenosis. - Hyperlipidemia. Continue statin. - Possible chronic obstructive pulmonary disease exacerbation. Continue patient on breathing treatments, steroids taper. - Leukocytosis- possibly sec to Steroids. - Stage IV chronic kidney disease. Kidney ultrasound is consistent with chronic kidney disease. Dr. Gordon is following in nephrology consultation. - Gout. Continue allopurinol. - Anemia of chronic disease, continue Epogen. Continue Lovenox for deep venous thrombosis prophylaxis and Protonix for peptic ulcer disease prophylaxis. Further recommendations based on clinical course. Plan of care discussed with Dr. Olivier. Subjective 24 Hr Interval Summary Eyes: no complaints ENT: no complaints Respiratory: no complaints Cardiovascular: no complaints Gastrointestinal: no complaints Genitourinary: no complaints Musculoskeletal: no complaints Skin: no complaints Neurologic: no complaints Endocrine: no complaints Lymphatic: no complaints Exam/Review of Systems Vital Signs Vitals Vital Signs Date Time Temp Pulse Resp B/P Pulse Ox O2 Delivery O2 Flow Rate FiO2 02/13/17 16:07 79 02/13/17 15:04 98.5 18 121/57 95 02/13/17 13:46 21 02/11/17 05:30 Room Air Intake and Output 02/12/17 02/12/17 02/13/17 15:00 23:00 07:00 Intake Total 840 ml 500 ml Balance 840 ml 500 ml Exam Constitutional: alert, well developed Psych: nl mood/affect Head: atraumatic Eyes: EOMI, PERRL, nl sclera Neck: non-tender Respiratory: clear to auscultation Cardiovascular: nl pulses Musculoskeletal: nl extremities to inspection Extremities: normal pulses Lymph: nontender Results Result Diagram: 02/12/1740 02/12/17 0740 Medications Medications Current Medications Acetaminophen (Tylenol Tab) 650 mg Q4H PRN PO PAIN AND OR ELEVATED TEMP Last administered on 01/29/17 18:54; Admin Dose 650 MG; Start 01/29/17 at 05:30 Guaifenesin/ Codeine Phosphate (Robitussin Ac Liquid Cup) 10 ml Q4H PRN PO COUGH Last administered on 02/07/17 17:58; Admin Dose 10 ML; Start 01/29/17 at 05:30 Atorvastatin Calcium (Lipitor) 10 mg HS PO Last administered on 02/12/17 20:39 ; Admin Dose 10 MG; Start 01/29/17 at 21:00 Pantoprazole (Protonix Tab) 40 mg DAILY@06 PO Last administered on 02/13/17 05 :49; Admin Dose 40 MG; Start 01/29/17 at 16:00 Epoetin Larry (Epogen (Non Esrd/Non Oncology)) 3,000 units MoWeFr@17 SC Last administered on 02/12/17 16:23; Admin Dose 3,000 UNITS; Start 01/31/17 at 17:00 Aspirin (Ecotrin) 325 mg DAILY PO Last administered on 02/13/17 08:27; Admin Dose 325 MG; Start 01/31/17 at 09:00 Diltiazem HCl (Cardizem Iv) 5 mg Q4 PRN IV HR>110 Hold SBP<100 Last administered on 02/11/17 03:27; Admin Dose 5 MG; Start 01/30/17 at 20:30 IV Flush (NS 10 ml) 10 ml PRN PRN IV FLUSH LINE; Start 01/31/17 at 17:30 Oxycodone/ Acetaminophen (Percocet (5/ 325)) 1 tab Q4H PRN PO PAIN Last administered on 02/12/17 22:00; Admin Dose 1 TAB; Start 02/01/17 at 07:30 Nitroglycerin (Nitroglycerin (Sl Tab) 0.4 Mg) 1 tab Q5M PRN SL ANGINA; Start at 14:30 Ondansetron HCl (Zofran Tab) 4 mg Q6H PRN PO NAUSEA AND/OR VOMITING; Start 11/09 at 14:30 Diphenhydramine HCl (Benadryl) 50 mg Q6H PRN PO ALLERGIC REACTION Last administered on 02/11/17 21:56; Admin Dose 50 MG; Start 02/02/17 at 22:30 Isosorbide Dinitrate (Isordil) 10 mg TID PO Last administered on 02/13/17 13: 21; Admin Dose 10 MG; Start 02/03/17 at 15:30 Al Hydrox/Mg Hydrox/Simethicone (Mag-Al Plus) 30 ml Q6H PRN PO GASTROINTESTINAL UPSET; Start 02/03/17 at 15:30 Benazepril HCl (Lotensin) 20 mg BID PO Last administered on 02/13/17 08:27; Admin Dose 20 MG; Start 02/03/17 at 21:00 Metoprolol Tartrate (Lopressor) 25 mg BID PO Last administered on 02/09/17 21: 03; Admin Dose 25 MG; Start 02/05/17 at 16:00; Status Future Hold Heparin Sodium (Porcine) (Heparin (5000 Units/0.5 ml)) 5,000 unit BID SC Last administered on 02/13/17 08:46; Admin Dose 5,000 UNIT; Start 02/05/17 at 16:00 Amiodarone HCl (Cordarone) 200 mg DAILY PO Last administered on 02/13/17 08:27 ; Admin Dose 200 MG; Start 02/08/17 at 09:00 Diltiazem HCl (Cardizem) 30 mg Q8 PO Last administered on 02/13/17 13:21; Admin Dose 30 MG; Start 02/12/17 at 14:00 Methylprednisolone Sodium Succinate (Solu-Medrol) 20 mg DAILY IV Last administered on 02/13/17 08:29; Admin Dose 20 MG; Start 02/13/17 at 09:00 KATIE MENDEZ Feb 13, 2017 18:26
--- NOTE | 2017-02-13 20:41 | CONS ---
Date/Time of Note Date/Time of Note DATE: 02/13/17 TIME: 20:36 Assessment/Plan Assessment/Plan Chief Complaint/Hosp Course multiple problems MARIANO improving Pt prb has ckd4, will get 24 hr studies Anemiaa, increase epo note Iron Sat is ok Problems: Additional Assessment/Plan change ambien to trazodone Cont'd Hospitalization Reason: wbc still over 18k, will rpt urine culture Consultation Date/Type/Reason Admit Date/Time Jan 31, 2017 at 15:05 Type of Consultation: renal Referring Provider: LOREN ROSE MD 24 HR Interval Summary Free Text/Dictation pt says ambien not helpful, requesting trazadone Constitutional: improved Exam/Review of Systems Vital Signs Vitals Vital Signs Date Time Temp Pulse Resp B/P Pulse Ox O2 Delivery O2 Flow Rate FiO2 02/13/17 20:28 85 02/13/17 19:46 98.4 16 151/68 96 02/13/17 19:30 21 02/11/17 05:30 Room Air Intake and Output 02/12/17 02/12/17 02/13/17 15:00 23:00 07:00 Intake Total 840 ml 500 ml Balance 840 ml 500 ml Exam Pt not sure she wants a pacemaker Constitutional: alert, obese, oriented, well developed Psych: nl mood/affect, no complaints Head: atraumatic, normocephalic Eyes: EOMI, PERRL, nl conjunctiva, nl lids, nl sclera ENMT: nl external ears & nose, nl lips & teeth, nl nasal mucosa & septum Neck: non-tender, supple Respiratory: clear to auscultation, normal air movement Cardiovascular: nl pulses, regular rate and rhythm Gastrointestinal: nl liver, spleen, non-tender, soft Genitourinary - Female: other (pt landers pampers) Musculoskeletal: nl extremities to inspection, nl gait and stance Extremities: normal pulses 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: CONTROL OPERATOR FLOW COAT II-XII intact, nl mental status, nl speech, nl strength Skin: nl turgor, No rash or lesions Lymph: nl lymph nodes Results BUN has improved Result Diagram: 02/12/1740 02/12/17 0740 Medications Medications Current Medications Acetaminophen (Tylenol Tab) 650 mg Q4H PRN PO PAIN AND OR ELEVATED TEMP Last administered on 01/29/17t 18:54; Admin Dose 650 MG; Start 01/29/17 at 05:30 Guaifenesin/ Codeine Phosphate (Robitussin Ac Liquid Cup) 10 ml Q4H PRN PO COUGH Last administered on 02/07/17 17:58; Admin Dose 10 ML; Start 01/29/17 at 05:30 Atorvastatin Calcium (Lipitor) 10 mg HS PO Last administered on 02/12/17 20:39 ; Admin Dose 10 MG; Start 01/29/17 at 21:00 Pantoprazole (Protonix Tab) 40 mg DAILY@06 PO Last administered on 02/13/17 05 :49; Admin Dose 40 MG; Start 01/29/17 at 16:00 Epoetin Larry (Epogen (Non Esrd/Non Oncology)) 3,000 units MoWeFr@17 SC Last administered on 02/12/17 16:23; Admin Dose 3,000 UNITS; Start 01/31/17 at 17:00 Aspirin (Ecotrin) 325 mg DAILY PO Last administered on 02/13/17 08:27; Admin Dose 325 MG; Start 01/31/17 at 09:00 Diltiazem HCl (Cardizem Iv) 5 mg Q4 PRN IV HR>110 Hold SBP<100 Last administered on 02/11/17 03:27; Admin Dose 5 MG; Start 01/30/17 at 20:30 IV Flush (NS 10 ml) 10 ml PRN PRN IV FLUSH LINE; Start 01/31/17 at 17:30 Oxycodone/ Acetaminophen (Percocet (5/ 325)) 1 tab Q4H PRN PO PAIN Last administered on 02/12/17 22:00; Admin Dose 1 TAB; Start 02/01/17 at 07:30 Nitroglycerin (Nitroglycerin (Sl Tab) 0.4 Mg) 1 tab Q5M PRN SL ANGINA; Start at 14:30 Ondansetron HCl (Zofran Tab) 4 mg Q6H PRN PO NAUSEA AND/OR VOMITING; Start 11/09 at 14:30 Diphenhydramine HCl (Benadryl) 50 mg Q6H PRN PO ALLERGIC REACTION Last administered on 02/11/17 21:56; Admin Dose 50 MG; Start 02/02/17 at 22:30 Isosorbide Dinitrate (Isordil) 10 mg TID PO Last administered on 02/13/17 13: 21; Admin Dose 10 MG; Start 02/03/17 at 15:30 Al Hydrox/Mg Hydrox/Simethicone (Mag-Al Plus) 30 ml Q6H PRN PO GASTROINTESTINAL UPSET; Start 02/03/17 at 15:30 Benazepril HCl (Lotensin) 20 mg BID PO Last administered on 02/13/17 08:27; Admin Dose 20 MG; Start 02/03/17 at 21:00 Metoprolol Tartrate (Lopressor) 25 mg BID PO Last administered on 02/09/17 21: 03; Admin Dose 25 MG; Start 02/05/17 at 16:00; Status Future Hold Heparin Sodium (Porcine) (Heparin (5000 Units/0.5 ml)) 5,000 unit BID SC Last administered on 02/13/17 08:46; Admin Dose 5,000 UNIT; Start 02/05/17 at 16:00 Amiodarone HCl (Cordarone) 200 mg DAILY PO Last administered on 02/13/17 08:27 ; Admin Dose 200 MG; Start 02/08/17 at 09:00 Diltiazem HCl (Cardizem) 30 mg Q8 PO Last administered on 02/13/17 13:21; Admin Dose 30 MG; Start 02/12/17 at 14:00 Methylprednisolone Sodium Succinate (Solu-Medrol) 20 mg DAILY IV Last administered on 02/13/17 08:29; Admin Dose 20 MG; Start 02/13/17 at 09:00 CLAUDIA MITCHELL MD Feb 13, 2017 20:41
[2017-02-13] MEDS ORDERED: traZODone 50 MG TAB PO ONE (21:00)
[2017-02-13] MEDS: ATORVASTATIN 10 MG TAB PO SCH (21:06)
[2017-02-13] MEDS: DILTIAZEM 25 MG INJ IV PRN (21:51)
[2017-02-13] MEDS: OXYCODONE/ACETAMINOPHEN (5/325) TAB PO PRN (23:34)
[2017-02-14] VITALS (15 sets, daily range): BP systolic 120–147; BP diastolic 56–67; PULSE 76–142; RESP 16–20
[2017-02-14] MEDS: PANTOPRAZOLE (EC) 40 MG TAB PO SCH (05:51)
[2017-02-14] MEDS: DILTIAZEM 30 MG TAB PO SCH ×3 (05:51→20:24)
[2017-02-14 06:13] LABS: ADD SCAN DIFF NO
[2017-02-14 06:34] LABS: ABNORMAL IP MESSAGE 1; BASOPHILS % 0.1 % (0.0-2.0); HEMATOCRIT 29.2 % (37.0-47.0); HEMOGLOBIN 9.2 g/dl (12.0-16.0); LYMPHOCYTES # 0.6 10^3/ul (0.8-2.9); LYMPHOCYTES % 3.7 % (15.0-51.0); MEAN CORPUSCULAR HEMOGLOBIN 31.2 pg (29.0-33.0); MEAN CORPUSCULAR HGB CONC 31.5 g/dl (32.0-37.0); MEAN PLATELET VOLUME 10.2 fl (7.4-10.4); MONOCYTE # 0.8 10^3/ul (0.3-0.9); MONOCYTES % 5.3 % (0.0-11.0); NEUTROPHIL # 13.5 10^3/ul (1.6-7.5); NEUTROPHILS % 90.1 % (39.0-77.0); NUCLEATED RED BLOOD CELLS% 0.1 /100WBC (0.0-0.0); PLATELET COUNT 224 10^3/UL (140-415); RED BLOOD COUNT 2.95 10^6/ul (4.20-5.40); RED CELL DISTRIBUTION WIDTH 18.9 % (11.5-14.5); WHITE BLOOD COUNT 14.9 10^3/ul (4.8-10.8)
[2017-02-14] MEDS: ALBUTEROL/IPRATROPIUM (NEB) 3 ML AMP HHN SCH ×3 (08:04→19:53)
[2017-02-14] MEDS: HEPARIN 5,000 UNIT/0.5 ML SYG SC SCH ×2 (09:00→20:25)
[2017-02-14 09:04] LABS: POTASSIUM 5.1 mmol/L (3.5-5.1)
[2017-02-14 09:07] LABS: CREATININE 2.14 mg/dl (0.44-1.00)
[2017-02-14] MEDS: AMIODARONE 200 MG TAB PO SCH (09:16)
[2017-02-14] MEDS: METHYLPREDNISOLONE 40 MG INJ IV SCH (09:17)
[2017-02-14] MEDS: CALCIUM CARBONATE 500 MG CHEW TAB PO SCH ×3 (09:17→18:27)
[2017-02-14] MEDS: BENAZEPRIL 20 MG TAB PO SCH ×2 (09:17→20:25)
[2017-02-14] MEDS: ISOSORBIDE DINITRATE 10 MG TAB PO SCH ×3 (09:17→20:25)
[2017-02-14] MEDS: ASPIRIN (EC) 325 MG TAB PO SCH (09:17)
[2017-02-14 15:05] LABS: ADD UMIC YES; URINE BILIRUBIN (Dip) NEGATIVE (NEGATIVE); URINE BLOOD (Dip) NEGATIVE (NEGATIVE); URINE COLOR LT. YELLOW (YELLOW); URINE GLUCOSE (Dip) NEGATIVE (NEGATIVE); URINE KETONES (Dip) NEGATIVE (NEGATIVE); URINE LEUKOCYTE ESTERASE (Dip) NEGATIVE (NEGATIVE); URINE NITRITE (Dip) NEGATIVE (NEGATIVE); URINE TOTAL PROTEIN (Dip) 1+ (NEGATIVE); URINE UROBILINOGEN (Dip) 0.2 E.U./dL (0.1-1.0)
[2017-02-14 15:23] LABS: BACTERIA,URINE OCCASIONAL; SQUAMOUS EPITHELIAL CELL,UR FEW; URINE RBCS NONE SEEN /HPF (0)
--- NOTE | 2017-02-14 15:55 | CONS ---
Date/Time of Note Date/Time of Note DATE: 02/14/17 TIME: 15:53 Assessment/Plan Assessment/Plan Chief Complaint/Hosp Course IMPRESSION: 1. Atrial fibrillation, not currently on systemic anticoagulation but on asa, rate controlled and currently in SR/SB-Had recurrent AF/AFL 02/14 to 150 and now back in SR 2. Shortness of breath, assess for congestive heart failure. 3. Diastolic dysfunction by 2D echo this admission.-CHF by cxr 02/01 4. Hypertension. 5. Possible chronic obstructive pulmonary disease. 6. Possible bronchitis. 7. Possible pneumonia. 8. Dyslipidemia. 9. Chronic kidney disease. 10. Anemia. 11. Leukocytosis 12. Chest pain-improved/negative troponin x 2/NO changes on ECG 14. 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-no recurrent twan at this time of low dose dilt/amio Recc: -Tele -Continue asa/statin/isordil/ACEI -Continue steroids/bronchodilators/abx's -Continue SQ heparin -Continue low dose amio -Now having recurrent AF with RVR and thus will continue low dose CCB and follow HR response if again becomes twan will require PPM for tachy-twan syndrome but as of now tolerating medications well without sig twan but has had recurrent Tachy -Follow volume status closely Problems: Consultation Date/Type/Reason Admit Date/Time Jan 31, 2017 at 15:05 Initial Consult Date 01/30/2017 Type of Consultation: Cardiology Reason for Consultation Bradycardia/tachycardia Referring Provider: LOREN ROSE MD Exam/Review of Systems Vital Signs Vitals Vital Signs Date Time Temp Pulse Resp B/P Pulse Ox O2 Delivery O2 Flow Rate FiO2 02/14/17 15:41 97.9 85 18 145/65 96 02/14/17 13:18 21 02/11/17 05:30 Room Air Intake and Output 02/13/17 02/13/17 02/14/17 15:00 23:00 07:00 Intake Total 840 ml 800 ml Balance 840 ml 800 ml Exam Review of Systems: CONSTITUTIONAL: No fevers, chills. PULMONARY: No sob CARDIOVASCULAR: No chest pain/palpitations GASTROINTESTINAL: No nausea/vomiting. GENITOURINARY: No hematuria/dysuria. MUSCULOSKELETAL: No myagias/arthalgias. PSYCHIATRIC: The patient denies depression. NEUROLOGIC: No weakness Constitutional: alert, oriented Psych: no complaints Head: normocephalic ENMT: mucosa pink and moist Neck: jvd (9 cm water), supple Respiratory: clear to auscultation Cardiovascular: regular rate and rhythm Gastrointestinal: non-tender, soft Musculoskeletal: muscle tone (normal) Extremities: edema (trace/B) 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: other (No focal deficits) Results Result Diagram: 02/14/1745 02/14/17 0545 Results 24 hrs Laboratory Tests Test 02/14/17 05:45 02/14/17 12:50 White Blood Count 14.9 #H Red Blood Count 2.95 L Hemoglobin 9.2 L Hematocrit 29.2 L Mean Corpuscular Volume 99.0 Mean Corpuscular Hemoglobin 31.2 Mean Corpuscular Hemoglobin Concent 31.5 L Red Cell Distribution Width 18.9 H Platelet Count 224 Mean Platelet Volume 10.2 Neutrophils % 90.1 H Lymphocytes % 3.7 L Monocytes % 5.3 Eosinophils % 0.0 Basophils % 0.1 Nucleated Red Blood Cells % 0.1 H Neutrophils # 13.5 H Lymphocytes # 0.6 L Monocytes # 0.8 Eosinophils # 0.0 Basophils # 0.0 Nucleated Red Blood Cells # 0.0 Sodium Level 141 Potassium Level 5.1 Chloride Level 112 H Carbon Dioxide Level 18 L Anion Gap 16 Blood Urea Nitrogen 68 H Creatinine 2.14 H Glucose Level 110 Calcium Level 9.0 Urine Color LT. YELLOW Urine Clarity CLEAR Urine pH 5.5 Urine Specific [place] 1.010 Urine Ketones NEGATIVE Urine Nitrite NEGATIVE Urine Bilirubin NEGATIVE Urine Urobilinogen 0.2 E.U./dL Urine Leukocyte Esterase NEGATIVE Urine Microscopic RBC NONE SEEN Urine Microscopic WBC 2-5 Urine Squamous Epithelial Cells FEW Urine Bacteria OCCASIONAL Urine Hemoglobin NEGATIVE Urine Glucose NEGATIVE Urine Total Protein 1+ H Medications Medications Current Medications Acetaminophen (Tylenol Tab) 650 mg Q4H PRN PO PAIN AND OR ELEVATED TEMP Last administered on 01/29/17 18:54; Admin Dose 650 MG; Start 01/29/17 at 05:30 Guaifenesin/ Codeine Phosphate (Robitussin Ac Liquid Cup) 10 ml Q4H PRN PO COUGH Last administered on 02/07/17 17:58; Admin Dose 10 ML; Start 01/29/17 at 05:30 Atorvastatin Calcium (Lipitor) 10 mg HS PO Last administered on 02/13/17 21:06 ; Admin Dose 10 MG; Start 01/29/17 at 21:00 Pantoprazole (Protonix Tab) 40 mg DAILY@06 PO Last administered on 02/14/17 05 :51; Admin Dose 40 MG; Start 01/29/17 at 16:00 Epoetin Larry (Epogen (Non Esrd/Non Oncology)) 3,000 units MoWeFr@17 SC Last administered on 02/12/17 16:23; Admin Dose 3,000 UNITS; Start 01/31/17 at 17:00 Aspirin (Ecotrin) 325 mg DAILY PO Last administered on 02/14/17 09:17; Admin Dose 325 MG; Start 01/31/17 at 09:00 Diltiazem HCl (Cardizem Iv) 5 mg Q4 PRN IV HR>110 Hold SBP<100 Last administered on 02/13/17 21:51; Admin Dose 5 MG; Start 01/30/17 at 20:30 IV Flush (NS 10 ml) 10 ml PRN PRN IV FLUSH LINE; Start 01/31/17 at 17:30 Nitroglycerin (Nitroglycerin (Sl Tab) 0.4 Mg) 1 tab Q5M PRN SL ANGINA; Start at 14:30 Ondansetron HCl (Zofran Tab) 4 mg Q6H PRN PO NAUSEA AND/OR VOMITING; Start 11/09 at 14:30 Diphenhydramine HCl (Benadryl) 50 mg Q6H PRN PO ALLERGIC REACTION Last administered on 02/11/17 21:56; Admin Dose 50 MG; Start 02/02/17 at 22:30 Isosorbide Dinitrate (Isordil) 10 mg TID PO Last administered on 02/14/17 12: 31; Admin Dose 10 MG; Start 02/03/17 at 15:30 Al Hydrox/Mg Hydrox/Simethicone (Mag-Al Plus) 30 ml Q6H PRN PO GASTROINTESTINAL UPSET; Start 02/03/17 at 15:30 Benazepril HCl (Lotensin) 20 mg BID PO Last administered on 02/14/17 09:17; Admin Dose 20 MG; Start 02/03/17 at 21:00 Metoprolol Tartrate (Lopressor) 25 mg BID PO Last administered on 02/09/17 21: 03; Admin Dose 25 MG; Start 02/05/17 at 16:00; Status Future Hold Heparin Sodium (Porcine) (Heparin (5000 Units/0.5 ml)) 5,000 unit BID SC Last administered on 02/13/17 08:46; Admin Dose 5,000 UNIT; Start 02/05/17 at 16:00 Amiodarone HCl (Cordarone) 200 mg DAILY PO Last administered on 02/14/17 09:16 ; Admin Dose 200 MG; Start 02/08/17 at 09:00 Diltiazem HCl (Cardizem) 30 mg Q8 PO Last administered on 02/14/17 14:41; Admin Dose 30 MG; Start 02/12/17 at 14:00 Methylprednisolone Sodium Succinate (Solu-Medrol) 20 mg DAILY IV Last administered on 02/14/17 09:17; Admin Dose 20 MG; Start 02/13/17 at 09:00 Oxycodone/ Acetaminophen (Percocet (5/ 325)) 1 tab Q4H PRN PO PAIN Last administered on 02/13/17 23:34; Admin Dose 1 TAB; Start 02/13/17 at 21:00 ALVINA GARCIA Feb 14, 2017 15:55
--- NOTE | 2017-02-14 16:07 | PN ---
Date/Time of Note Date/Time of Note DATE: 02/14/17 TIME: 16:06 Assessment/Plan VTE Prophylaxis VTE Prophylaxis Intervention: SCD's Lines/Catheters IV Catheter Type (from [facility], [place]): PICC Line Central line still needed: Yes Urinary Cath still in place: No Assessment/Plan Chief Complaint/Hosp Course ASSESSMENT AND PLAN: - Recurrent atrial fibrillation with RVR, continue Cardizem and amiodarone, continue telemetry monitoring, follow-up cardiology recommendations. - Bradycardia, patient is undergoing evaluation for pacemaker, continue to follow-up cardiology recommendation, continue telemetry monitoring. - Possible bronchitis versus early pneumonia. s/p treatment., continue breathing treatments. - Ecoli urinary tract infection, s/p treatment. - Diastolic dysfunction congestive heart failure. Dr. Iraheta is following and cardiology consultation, continue gentle diuresis. - Atrial fibrillation at controlled rate. Continue aspirin and metoprolol. - Hypertension. Continue metoprolol and benazepril. - Aortic stenosis. - Hyperlipidemia. Continue statin. - Possible chronic obstructive pulmonary disease exacerbation. Continue patient on breathing treatments, steroids taper. - Stage IV chronic kidney disease. Kidney ultrasound is consistent with chronic kidney disease. Dr. Gordon is following in nephrology consultation. - Gout. Continue allopurinol. - Anemia of chronic disease, continue Epogen. Continue Lovenox for deep venous thrombosis prophylaxis and Protonix for peptic ulcer disease prophylaxis. Further recommendations based on clinical course. Plan of care discussed with Dr. Olivier. Problems: Subjective 24 Hr Interval Summary Free Text/Dictation Patient with short episode of A. fib with RVR today currently in sinus rhythm, patient denies any shortness of breath denies chest pain. Exam/Review of Systems Vital Signs Vitals Vital Signs Date Time Temp Pulse Resp B/P Pulse Ox O2 Delivery O2 Flow Rate FiO2 02/14/17 15:41 97.9 85 18 145/65 96 02/14/17 13:18 21 02/11/17 05:30 Room Air Intake and Output 02/13/17 02/13/17 02/14/17 15:00 23:00 07:00 Intake Total 840 ml 800 ml Balance 840 ml 800 ml Exam Constitutional: alert, oriented Psych: no complaints Head: atraumatic, normocephalic Eyes: nl conjunctiva Neck: non-tender, supple Respiratory: other (Diminished at the bases) Cardiovascular: other (Irregularly irregular rhythm) Gastrointestinal: non-tender, soft Musculoskeletal: nl extremities to inspection, nl gait and stance Extremities: normal pulses 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0 Nucleated Red Blood Cells # 0.0 Sodium Level 141 Potassium Level 5.1 Chloride Level 112 H Carbon Dioxide Level 18 L Anion Gap 16 Blood Urea Nitrogen 68 H Creatinine 2.14 H Glucose Level 110 Calcium Level 9.0 Urine Color LT. YELLOW Urine Clarity CLEAR Urine pH 5.5 Urine Specific [place] 1.010 Urine Ketones NEGATIVE Urine Nitrite NEGATIVE Urine Bilirubin NEGATIVE Urine Urobilinogen 0.2 E.U./dL Urine Leukocyte Esterase NEGATIVE Urine Microscopic RBC NONE SEEN Urine Microscopic WBC 2-5 Urine Squamous Epithelial Cells FEW Urine Bacteria OCCASIONAL Urine Hemoglobin NEGATIVE Urine Glucose NEGATIVE Urine Total Protein 1+ H Medications Medications Current Medications Acetaminophen (Tylenol Tab) 650 mg Q4H PRN PO PAIN AND OR ELEVATED TEMP Last administered on 01/29/17 18:54; Admin Dose 650 MG; Start 01/29/17 at 05:30 Guaifenesin/ Codeine Phosphate (Robitussin Ac Liquid Cup) 10 ml Q4H PRN PO COUGH Last administered on 02/07/17 17:58; Admin Dose 10 ML; Start 01/29/17 at 05:30 Atorvastatin Calcium (Lipitor) 10 mg HS PO Last administered on 02/13/17 21:06 ; Admin Dose 10 MG; Start 01/29/17 at 21:00 Pantoprazole (Protonix Tab) 40 mg DAILY@06 PO Last administered on 02/14/17 05 :51; Admin Dose 40 MG; Start 01/29/17 at 16:00 Epoetin Larry (Epogen (Non Esrd/Non Oncology)) 3,000 units MoWeFr@17 SC Last administered on 02/12/17 16:23; Admin Dose 3,000 UNITS; Start 01/31/17 at 17:00 Aspirin (Ecotrin) 325 mg DAILY PO Last administered on 02/14/17 09:17; Admin Dose 325 MG; Start 01/31/17 at 09:00 Diltiazem HCl (Cardizem Iv) 5 mg Q4 PRN IV HR>110 Hold SBP<100 Last administered on 02/13/17 21:51; Admin Dose 5 MG; Start 01/30/17 at 20:30 IV Flush (NS 10 ml) 10 ml PRN PRN IV FLUSH LINE; Start 01/31/17 at 17:30 Nitroglycerin (Nitroglycerin (Sl Tab) 0.4 Mg) 1 tab Q5M PRN SL ANGINA; Start at 14:30 Ondansetron HCl (Zofran Tab) 4 mg Q6H PRN PO NAUSEA AND/OR VOMITING; Start 11/09 at 14:30 Diphenhydramine HCl (Benadryl) 50 mg Q6H PRN PO ALLERGIC REACTION Last administered on 02/11/17 21:56; Admin Dose 50 MG; Start 02/02/17 at 22:30 Isosorbide Dinitrate (Isordil) 10 mg TID PO Last administered on 02/14/17 12: 31; Admin Dose 10 MG; Start 02/03/17 at 15:30 Al Hydrox/Mg Hydrox/Simethicone (Mag-Al Plus) 30 ml Q6H PRN PO GASTROINTESTINAL UPSET; Start 02/03/17 at 15:30 Benazepril HCl (Lotensin) 20 mg BID PO Last administered on 02/14/17 09:17; Admin Dose 20 MG; Start 02/03/17 at 21:00 Metoprolol Tartrate (Lopressor) 25 mg BID PO Last administered on 02/09/17 21: 03; Admin Dose 25 MG; Start 02/05/17 at 16:00; Status Future Hold Heparin Sodium (Porcine) (Heparin (5000 Units/0.5 ml)) 5,000 unit BID SC Last administered on 02/13/17 08:46; Admin Dose 5,000 UNIT; Start 02/05/17 at 16:00 Amiodarone HCl (Cordarone) 200 mg DAILY PO Last administered on 02/14/17 09:16 ; Admin Dose 200 MG; Start 02/08/17 at 09:00 Diltiazem HCl (Cardizem) 30 mg Q8 PO Last administered on 02/14/17 14:41; Admin Dose 30 MG; Start 02/12/17 at 14:00 Methylprednisolone Sodium Succinate (Solu-Medrol) 20 mg DAILY IV Last administered on 02/14/17 09:17; Admin Dose 20 MG; Start 02/13/17 at 09:00 Oxycodone/ Acetaminophen (Percocet (5/ 325)) 1 tab Q4H PRN PO PAIN Last administered on 02/13/17 23:34; Admin Dose 1 TAB; Start 02/13/17 at 21:00 EDWAR VARGAS Feb 14, 2017 16:07
[2017-02-14] MEDS: EPOETIN 3000 UNITS/ML (NON ESRD/NON ONCOLOGY) SC SCH (18:28)
--- NOTE | 2017-02-14 19:33 | CONS ---
Date/Time of Note Date/Time of Note DATE: 02/14/17 TIME: 19:26 Assessment/Plan Assessment/Plan Chief Complaint/Hosp Course multiple problems MARIANO improved, ckd 4 stable Pt prb has ckd4, will get 24 hr studies Anemia, hct stable Problems: Additional Assessment/Plan awaiting further plans renal fn has stabilized Consultation Date/Type/Reason Admit Date/Time Jan 31, 2017 at 15:05 Type of Consultation: renal Reason for Consultation pt feels better Referring Provider: LOREN ROSE MD Exam/Review of Systems Vital Signs Vitals Vital Signs Date Time Temp Pulse Resp B/P Pulse Ox O2 Delivery O2 Flow Rate FiO2 02/14/17 18:26 124 02/14/17 15:41 97.9 18 145/65 96 02/14/17 13:18 21 02/11/17 05:30 Room Air Intake and Output 02/13/17 02/13/17 02/14/17 15:00 23:00 07:00 Intake Total 840 ml 800 ml Balance 840 ml 800 ml Exam pt says she is not able to get around Constitutional: alert, obese, oriented, well developed Psych: nl mood/affect, no complaints Head: atraumatic, normocephalic Eyes: EOMI, PERRL, nl conjunctiva, nl lids, nl sclera ENMT: nl external ears & nose, nl lips & teeth, nl nasal mucosa & septum Neck: non-tender, supple Respiratory: clear to auscultation, normal air movement Cardiovascular: nl pulses, regular rate and rhythm Gastrointestinal: nl liver, spleen, non-tender, soft Musculoskeletal: nl extremities to inspection, nl gait and stance Extremities: normal pulses 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, nl mental status, nl speech, nl strength Skin: nl turgor, No rash or lesions Lymph: nl lymph nodes Results Result Diagram: 02/14/17 0545 02/14/17 0545 Results 24 hrs Laboratory Tests Test 02/14/17 05:45 02/14/17 12:50 White Blood Count 14.9 #H Red Blood Count 2.95 L Hemoglobin 9.2 L Hematocrit 29.2 L Mean Corpuscular Volume 99.0 Mean Corpuscular Hemoglobin 31.2 Mean Corpuscular Hemoglobin Concent 31.5 L Red Cell Distribution Width 18.9 H Platelet Count 224 Mean Platelet Volume 10.2 Neutrophils % 90.1 H Lymphocytes % 3.7 L Monocytes % 5.3 Eosinophils % 0.0 Basophils % 0.1 Nucleated Red Blood Cells % 0.1 H Neutrophils # 13.5 H Lymphocytes # 0.6 L Monocytes # 0.8 Eosinophils # 0.0 Basophils # 0.0 Nucleated Red Blood Cells # 0.0 Sodium Level 141 Potassium Level 5.1 Chloride Level 112 H Carbon Dioxide Level 18 L Anion Gap 16 Blood Urea Nitrogen 68 H Creatinine 2.14 H Glucose Level 110 Calcium Level 9.0 Urine Color LT. YELLOW Urine Clarity CLEAR Urine pH 5.5 Urine Specific [place] 1.010 Urine Ketones NEGATIVE Urine Nitrite NEGATIVE Urine Bilirubin NEGATIVE Urine Urobilinogen 0.2 E.U./dL Urine Leukocyte Esterase NEGATIVE Urine Microscopic RBC NONE SEEN Urine Microscopic WBC 2-5 Urine Squamous Epithelial Cells FEW Urine Bacteria OCCASIONAL Urine Hemoglobin NEGATIVE Urine Glucose NEGATIVE Urine Total Protein 1+ H Medications Medications Current Medications Acetaminophen (Tylenol Tab) 650 mg Q4H PRN PO PAIN AND OR ELEVATED TEMP Last administered on 01/29/17 18:54; Admin Dose 650 MG; Start 01/29/17 at 05:30 Guaifenesin/ Codeine Phosphate (Robitussin Ac Liquid Cup) 10 ml Q4H PRN PO COUGH Last administered on 02/07/17 17:58; Admin Dose 10 ML; Start 01/29/17 at 05:30 Atorvastatin Calcium (Lipitor) 10 mg HS PO Last administered on 02/13/17 21:06 ; Admin Dose 10 MG; Start 01/29/17 at 21:00 Pantoprazole (Protonix Tab) 40 mg DAILY@06 PO Last administered on 02/14/17 05 :51; Admin Dose 40 MG; Start 01/29/17 at 16:00 Epoetin Larry (Epogen (Non Esrd/Non Oncology)) 3,000 units MoWeFr@17 SC Last administered on 02/14/17 18:28; Admin Dose 3,000 UNITS; Start 01/31/17 at 17:00 Aspirin (Ecotrin) 325 mg DAILY PO Last administered on 02/14/17 09:17; Admin Dose 325 MG; Start 01/31/17 at 09:00 Diltiazem HCl (Cardizem Iv) 5 mg Q4 PRN IV HR>110 Hold SBP<100 Last administered on 02/13/17 21:51; Admin Dose 5 MG; Start 01/30/17 at 20:30 IV Flush (NS 10 ml) 10 ml PRN PRN IV FLUSH LINE; Start 01/31/17 at 17:30 Nitroglycerin (Nitroglycerin (Sl Tab) 0.4 Mg) 1 tab Q5M PRN SL ANGINA; Start at 14:30 Ondansetron HCl (Zofran Tab) 4 mg Q6H PRN PO NAUSEA AND/OR VOMITING; Start 11/09 at 14:30 Diphenhydramine HCl (Benadryl) 50 mg Q6H PRN PO ALLERGIC REACTION Last administered on 02/11/17 21:56; Admin Dose 50 MG; Start 02/02/17 at 22:30 Isosorbide Dinitrate (Isordil) 10 mg TID PO Last administered on 02/14/17 12: 31; Admin Dose 10 MG; Start 02/03/17 at 15:30 Al Hydrox/Mg Hydrox/Simethicone (Mag-Al Plus) 30 ml Q6H PRN PO GASTROINTESTINAL UPSET; Start 02/03/17 at 15:30 Benazepril HCl (Lotensin) 20 mg BID PO Last administered on 02/14/17 09:17; Admin Dose 20 MG; Start 02/03/17 at 21:00 Metoprolol Tartrate (Lopressor) 25 mg BID PO Last administered on 02/09/17 21: 03; Admin Dose 25 MG; Start 02/05/17 at 16:00; Status Future Hold Heparin Sodium (Porcine) (Heparin (5000 Units/0.5 ml)) 5,000 unit BID SC Last administered on 02/13/17 08:46; Admin Dose 5,000 UNIT; Start 02/05/17 at 16:00 Amiodarone HCl (Cordarone) 200 mg DAILY PO Last administered on 02/14/17 09:16 ; Admin Dose 200 MG; Start 02/08/17 at 09:00 Diltiazem HCl (Cardizem) 30 mg Q8 PO Last administered on 02/14/17 14:41; Admin Dose 30 MG; Start 02/12/17 at 14:00 Methylprednisolone Sodium Succinate (Solu-Medrol) 20 mg DAILY IV Last administered on 02/14/17 09:17; Admin Dose 20 MG; Start 02/13/17 at 09:00 Oxycodone/ Acetaminophen (Percocet (5/ 325)) 1 tab Q4H PRN PO PAIN Last administered on 02/13/17 23:34; Admin Dose 1 TAB; Start 02/13/17 at 21:00 CLAUDIA MITCHELL MD Feb 14, 2017 19:33
[2017-02-14] MEDS: ATORVASTATIN 10 MG TAB PO SCH (20:24)
[2017-02-15] VITALS (12 sets, daily range): BP systolic 120–163; BP diastolic 60–71; PULSE 72–89; RESP 18–20
[2017-02-15] MEDS: DILTIAZEM 30 MG TAB PO SCH ×3 (05:18→21:17)
[2017-02-15] MEDS: PANTOPRAZOLE (EC) 40 MG TAB PO SCH (05:18)
[2017-02-15] MEDS: ALBUTEROL/IPRATROPIUM (NEB) 3 ML AMP HHN SCH ×3 (07:22→19:53)
[2017-02-15 08:39] LABS: ADD SCAN DIFF NO
[2017-02-15] MEDS: METHYLPREDNISOLONE 40 MG INJ IV SCH (08:48)
[2017-02-15] MEDS: AMIODARONE 200 MG TAB PO SCH (08:49)
[2017-02-15] MEDS: CALCIUM CARBONATE 500 MG CHEW TAB PO SCH ×3 (08:49→18:00)
[2017-02-15] MEDS: ASPIRIN (EC) 325 MG TAB PO SCH (08:50)
[2017-02-15] MEDS: BENAZEPRIL 20 MG TAB PO SCH ×2 (08:50→21:17)
[2017-02-15] MEDS: ISOSORBIDE DINITRATE 10 MG TAB PO SCH ×3 (08:50→21:16)
[2017-02-15 08:53] LABS: ABNORMAL IP MESSAGE 1; BASOPHILS % 0.1 % (0.0-2.0); EOSINOPHILS % 0.1 % (0.0-7.0); HEMATOCRIT 29.2 % (37.0-47.0); HEMOGLOBIN 9.4 g/dl (12.0-16.0); LYMPHOCYTES # 0.6 10^3/ul (0.8-2.9); LYMPHOCYTES % 4.3 % (15.0-51.0); MEAN CORPUSCULAR HEMOGLOBIN 31.5 pg (29.0-33.0); MEAN CORPUSCULAR HGB CONC 32.2 g/dl (32.0-37.0); MEAN PLATELET VOLUME 10.3 fl (7.4-10.4); MONOCYTE # 0.9 10^3/ul (0.3-0.9); MONOCYTES % 6.8 % (0.0-11.0); NEUTROPHIL # 11.3 10^3/ul (1.6-7.5); NUCLEATED RED BLOOD CELLS% 0.2 /100WBC (0.0-0.0); PLATELET COUNT 226 10^3/UL (140-415); RED BLOOD COUNT 2.98 10^6/ul (4.20-5.40); RED CELL DISTRIBUTION WIDTH 19.2 % (11.5-14.5); WHITE BLOOD COUNT 12.9 10^3/ul (4.8-10.8)
[2017-02-15] MEDS: HEPARIN 5,000 UNIT/0.5 ML SYG SC SCH ×2 (08:53→21:00)
[2017-02-15 08:54] LABS: POTASSIUM 5.3 mmol/L (3.5-5.1)
[2017-02-15 08:56] LABS: CREATININE 2.07 mg/dl (0.44-1.00)
[2017-02-15 08:57] LABS: CALCIUM 8.9 mg/dl (8.4-10.2)
--- NOTE | 2017-02-15 12:08 | PN ---
Date/Time of Note Date/Time of Note DATE: 02/15/17 TIME: 12:06 Assessment/Plan VTE Prophylaxis VTE Prophylaxis Intervention: LMWH Lines/Catheters IV [facility] Type (from [facility] PICC Line Urinary Cath still in place: No Assessment/Plan Assessment/Plan - Recurrent atrial fibrillation with RVR, continue Cardizem and amiodarone, continue telemetry monitoring, follow-up cardiology recommendations. - Bradycardia, patient is undergoing evaluation for pacemaker, continue to follow-up cardiology recommendation, continue telemetry monitoring. - Possible bronchitis versus early pneumonia. s/p treatment., continue breathing treatments. - Ecoli urinary tract infection, s/p treatment. - Diastolic dysfunction congestive heart failure. Dr. Iraheta is following and cardiology consultation, continue gentle diuresis. - Atrial fibrillation at controlled rate. Continue aspirin and metoprolol. - Hypertension. Continue metoprolol and benazepril. - Aortic stenosis. - Hyperlipidemia. Continue statin. - Possible chronic obstructive pulmonary disease exacerbation. Continue patient on breathing treatments, steroids taper. - Stage IV chronic kidney disease. Kidney ultrasound is consistent with chronic kidney disease. Dr. Gordon is following in nephrology consultation. - Gout. Continue allopurinol. - Anemia of chronic disease, continue Epogen. -Hyperkalemia- Kayexalate x1, am labs. Continue Lovenox for deep venous thrombosis prophylaxis and Protonix for peptic ulcer disease prophylaxis. DC plan to SNF. Further recommendations based on clinical course. Plan of care discussed with Dr. Olivier. Subjective 24 Hr Interval Summary Eyes: no complaints ENT: no complaints Respiratory: no complaints Cardiovascular: no complaints Gastrointestinal: no complaints Genitourinary: no complaints Musculoskeletal: no complaints Skin: no complaints Neurologic: no complaints Endocrine: no complaints Lymphatic: no complaints Psychological: no complaints Immunologic: no complaints Exam/Review of Systems Vital Signs Vitals Vital Signs Date Time Temp Pulse Resp B/P Pulse Ox O2 Delivery O2 Flow Rate FiO2 02/15/17 11:58 98.0 76 18 143/64 96 02/15/17 07:22 21 Intake and Output 02/14/17 02/14/17 02/15/17 14:59 22:59 06:59 Intake Total 850 ml 360 ml Balance 850 ml 360 ml Exam Constitutional: alert, oriented, well developed Head: atraumatic Eyes: EOMI, PERRL, nl sclera ENMT: nl external ears & nose Neck: non-tender Respiratory: clear to auscultation Cardiovascular: regular rate and rhythm Gastrointestinal: non-tender, soft Musculoskeletal: nl extremities to inspection 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: nl mental status, nl speech Skin: nl turgor Lymph: nontender Results Result Diagram: 02/15/17 0815 02/15/17 0815 Results 24 hrs Laboratory Tests Test 02/14/17 12:50 02/15/17 08:15 Urine Color LT. YELLOW Urine Clarity CLEAR Urine pH 5.5 Urine Specific [place] 1.010 Urine Ketones NEGATIVE Urine Nitrite NEGATIVE Urine Bilirubin NEGATIVE Urine Urobilinogen 0.2 E.U./dL Urine Leukocyte Esterase NEGATIVE Urine Microscopic RBC NONE SEEN Urine Microscopic WBC 2-5 Urine Squamous Epithelial Cells FEW Urine Bacteria OCCASIONAL Urine Hemoglobin NEGATIVE Urine Glucose NEGATIVE Urine Total Protein 1+ H White Blood Count 12.9 H Red Blood Count 2.98 L Hemoglobin 9.4 L Hematocrit 29.2 L Mean Corpuscular Volume 98.0 Mean Corpuscular Hemoglobin 31.5 Mean Corpuscular Hemoglobin Concent 32.2 Red Cell Distribution Width 19.2 H Platelet Count 226 Mean Platelet Volume 10.3 Neutrophils % 88.0 H Lymphocytes % 4.3 L Monocytes % 6.8 Eosinophils % 0.1 Basophils % 0.1 Nucleated Red Blood Cells % 0.2 H Neutrophils # 11.3 H Lymphocytes # 0.6 L Monocytes # 0.9 Eosinophils # 0.0 Basophils # 0.0 Nucleated Red Blood Cells # 0.0 Sodium Level 136 Potassium Level 5.3 H Chloride Level 110 Carbon Dioxide Level 19 L Anion Gap 12 Blood Urea Nitrogen 75 H Creatinine 2.07 H Glucose Level 95 Calcium Level 8.9 Medications Medications Current Medications Acetaminophen (Tylenol Tab) 650 mg Q4H PRN PO PAIN AND OR ELEVATED TEMP Last administered on 01/29/17 18:54; Admin Dose 650 MG; Start 01/29/17 at 05:30 Guaifenesin/ Codeine Phosphate (Robitussin Ac Liquid Cup) 10 ml Q4H PRN PO COUGH Last administered on 02/07/17 17:58; Admin Dose 10 ML; Start 01/29/17 at 05:30 Atorvastatin Calcium (Lipitor) 10 mg HS PO Last administered on 02/14/17 20:24 ; Admin Dose 10 MG; Start 01/29/17 at 21:00 Pantoprazole (Protonix Tab) 40 mg DAILY@06 PO Last administered on 02/15/17 05 :18; Admin Dose 40 MG; Start 01/29/17 at 16:00 Epoetin Larry (Epogen (Non Esrd/Non Oncology)) 3,000 units MoWeFr@17 SC Last administered on 02/14/17 18:28; Admin Dose 3,000 UNITS; Start 01/31/17 at 17:00 Aspirin (Ecotrin) 325 mg DAILY PO Last administered on 02/15/17 08:50; Admin Dose 325 MG; Start 01/31/17 at 09:00 Diltiazem HCl (Cardizem Iv) 5 mg Q4 PRN IV HR>110 Hold SBP<100 Last administered on 02/13/17 21:51; Admin Dose 5 MG; Start 01/30/17 at 20:30 IV Flush (NS 10 ml) 10 ml PRN PRN IV FLUSH LINE; Start 01/31/17 at 17:30 Nitroglycerin (Nitroglycerin (Sl Tab) 0.4 Mg) 1 tab Q5M PRN SL ANGINA; Start at 14:30 Ondansetron HCl (Zofran Tab) 4 mg Q6H PRN PO NAUSEA AND/OR VOMITING; Start 11/09 at 14:30 Diphenhydramine HCl (Benadryl) 50 mg Q6H PRN PO ALLERGIC REACTION Last administered on 02/11/17 21:56; Admin Dose 50 MG; Start 02/02/17 at 22:30 Isosorbide Dinitrate (Isordil) 10 mg TID PO Last administered on 02/15/17 08: 50; Admin Dose 10 MG; Start 02/03/17 at 15:30 Al Hydrox/Mg Hydrox/Simethicone (Mag-Al Plus) 30 ml Q6H PRN PO GASTROINTESTINAL UPSET; Start 02/03/17 at 15:30 Benazepril HCl (Lotensin) 20 mg BID PO Last administered on 02/15/17 08:50; Admin Dose 20 MG; Start 02/03/17 at 21:00 Metoprolol Tartrate (Lopressor) 25 mg BID PO Last administered on 02/09/17 21: 03; Admin Dose 25 MG; Start 02/05/17 at 16:00; Status Future Hold Heparin Sodium (Porcine) (Heparin (5000 Units/0.5 ml)) 5,000 unit BID SC Last administered on 02/13/17 08:46; Admin Dose 5,000 UNIT; Start 02/05/17 at 16:00 Amiodarone HCl (Cordarone) 200 mg DAILY PO Last administered on 02/15/17 08:49 ; Admin Dose 200 MG; Start 02/08/17 at 09:00 Diltiazem HCl (Cardizem) 30 mg Q8 PO Last administered on 02/15/17 05:18; Admin Dose 30 MG; Start 02/12/17 at 14:00 Methylprednisolone Sodium Succinate (Solu-Medrol) 20 mg DAILY IV Last administered on 02/15/17 08:48; Admin Dose 20 MG; Start 02/13/17 at 09:00 Oxycodone/ Acetaminophen (Percocet (5/ 325)) 1 tab Q4H PRN PO PAIN Last administered on 02/13/17 23:34; Admin Dose 1 TAB; Start 02/13/17 at 21:00 KATIE MENDEZ Feb 15, 2017 12:08
--- NOTE | 2017-02-15 12:40 | PN ---
Date/Time of Note Date/Time of Note DATE: 02/15/17 TIME: 12:37 Assessment/Plan VTE Prophylaxis VTE Prophylaxis Intervention: other Assessment/Plan Assessment/Plan [id number] ckd 24 hrs study 12 cc per min gfr non uraemic mat need hd once symptomatic Subjective 24 Hr Interval Summary Constitutional: no complaints Eyes: no complaints ENT: no complaints Respiratory: no complaints Cardiovascular: no complaints Gastrointestinal: no complaints Genitourinary: no complaints Musculoskeletal: no complaints Neurologic: no complaints Exam/Review of Systems Vital Signs Vitals Vital Signs Date Time Temp Pulse Resp B/P Pulse Ox O2 Delivery O2 Flow Rate FiO2 02/15/17 12:33 89 02/15/17 11:58 98.0 18 143/64 96 02/15/17 07:22 21 Intake and Output 02/14/17 02/14/17 02/15/17 15:00 23:00 07:00 Intake Total 850 ml 360 ml Balance 850 ml 360 ml Exam Constitutional: alert, oriented Head: normocephalic ENMT: nl external ears & nose Neck: supple Respiratory: clear to auscultation Cardiovascular: regular rate and rhythm Gastrointestinal: soft Musculoskeletal: nl extremities to inspection Results Result Diagram: 02/15/17 0815 02/15/17 0815 Results 24 hrs Laboratory Tests Test 02/14/17 12:50 02/15/17 08:15 Urine Color LT. YELLOW Urine Clarity CLEAR Urine pH 5.5 Urine Specific [place] 1.010 Urine Ketones NEGATIVE Urine Nitrite NEGATIVE Urine Bilirubin NEGATIVE Urine Urobilinogen 0.2 E.U./dL Urine Leukocyte Esterase NEGATIVE Urine Microscopic RBC NONE SEEN Urine Microscopic WBC 2-5 Urine Squamous Epithelial Cells FEW Urine Bacteria OCCASIONAL Urine Hemoglobin NEGATIVE Urine Glucose NEGATIVE Urine Total Protein 1+ H White Blood Count 12.9 H Red Blood Count 2.98 L Hemoglobin 9.4 L Hematocrit 29.2 L Mean Corpuscular Volume 98.0 Mean Corpuscular Hemoglobin 31.5 Mean Corpuscular Hemoglobin Concent 32.2 Red Cell Distribution Width 19.2 H Platelet Count 226 Mean Platelet Volume 10.3 Neutrophils % 88.0 H Lymphocytes % 4.3 L Monocytes % 6.8 Eosinophils % 0.1 Basophils % 0.1 Nucleated Red Blood Cells % 0.2 H Neutrophils # 11.3 H Lymphocytes # 0.6 L Monocytes # 0.9 Eosinophils # 0.0 Basophils # 0.0 Nucleated Red Blood Cells # 0.0 Sodium Level 136 Potassium Level 5.3 H Chloride Level 110 Carbon Dioxide Level 19 L Anion Gap 12 Blood Urea Nitrogen 75 H Creatinine 2.07 H Glucose Level 95 Calcium Level 8.9 Medications Medications Current Medications Acetaminophen (Tylenol Tab) 650 mg Q4H PRN PO PAIN AND OR ELEVATED TEMP Last administered on 01/29/17 18:54; Admin Dose 650 MG; Start 01/29/17 at 05:30 Guaifenesin/ Codeine Phosphate (Robitussin Ac Liquid Cup) 10 ml Q4H PRN PO COUGH Last administered on 02/07/17 17:58; Admin Dose 10 ML; Start 01/29/17 at 05:30 Atorvastatin Calcium (Lipitor) 10 mg HS PO Last administered on 02/14/17 20:24 ; Admin Dose 10 MG; Start 01/29/17 at 21:00 Pantoprazole (Protonix Tab) 40 mg DAILY@06 PO Last administered on 02/15/17 05 :18; Admin Dose 40 MG; Start 01/29/17 at 16:00 Epoetin Larry (Epogen (Non Esrd/Non Oncology)) 3,000 units MoWeFr@17 SC Last administered on 02/14/17 18:28; Admin Dose 3,000 UNITS; Start 01/31/17 at 17:00 Aspirin (Ecotrin) 325 mg DAILY PO Last administered on 02/15/17 08:50; Admin Dose 325 MG; Start 01/31/17 at 09:00 Diltiazem HCl (Cardizem Iv) 5 mg Q4 PRN IV HR>110 Hold SBP<100 Last administered on 02/13/17 21:51; Admin Dose 5 MG; Start 01/30/17 at 20:30 IV Flush (NS 10 ml) 10 ml PRN PRN IV FLUSH LINE; Start 01/31/17 at 17:30 Nitroglycerin (Nitroglycerin (Sl Tab) 0.4 Mg) 1 tab Q5M PRN SL ANGINA; Start at 14:30 Ondansetron HCl (Zofran Tab) 4 mg Q6H PRN PO NAUSEA AND/OR VOMITING; Start 11/09 at 14:30 Diphenhydramine HCl (Benadryl) 50 mg Q6H PRN PO ALLERGIC REACTION Last administered on 02/11/17 21:56; Admin Dose 50 MG; Start 02/02/17 at 22:30 Isosorbide Dinitrate (Isordil) 10 mg TID PO Last administered on 02/15/17 08: 50; Admin Dose 10 MG; Start 02/03/17 at 15:30 Al Hydrox/Mg Hydrox/Simethicone (Mag-Al Plus) 30 ml Q6H PRN PO GASTROINTESTINAL UPSET; Start 02/03/17 at 15:30 Benazepril HCl (Lotensin) 20 mg BID PO Last administered on 02/15/17 08:50; Admin Dose 20 MG; Start 02/03/17 at 21:00 Metoprolol Tartrate (Lopressor) 25 mg BID PO Last administered on 02/09/17 21: 03; Admin Dose 25 MG; Start 02/05/17 at 16:00; Status Future Hold Heparin Sodium (Porcine) (Heparin (5000 Units/0.5 ml)) 5,000 unit BID SC Last administered on 02/13/17 08:46; Admin Dose 5,000 UNIT; Start 02/05/17 at 16:00 Amiodarone HCl (Cordarone) 200 mg DAILY PO Last administered on 02/15/17 08:49 ; Admin Dose 200 MG; Start 02/08/17 at 09:00 Diltiazem HCl (Cardizem) 30 mg Q8 PO Last administered on 02/15/17 05:18; Admin Dose 30 MG; Start 02/12/17 at 14:00 Methylprednisolone Sodium Succinate (Solu-Medrol) 20 mg DAILY IV Last administered on 02/15/17 08:48; Admin Dose 20 MG; Start 02/13/17 at 09:00 Oxycodone/ Acetaminophen (Percocet (5/ 325)) 1 tab Q4H PRN PO PAIN Last administered on 02/13/17 23:34; Admin Dose 1 TAB; Start 02/13/17 at 21:00 NATHAN DE LA GARZA MD Feb 15, 2017 12:40
--- NOTE | 2017-02-15 18:12 | SP ---
DATE OF PROCEDURE: 02/15/2017 CARDIOLOGY FOLLOWUP SUBJECTIVE: On questioning, the patient denies any chest pain or shortness of breath. She does com plain of mild dry cough this morning. No other symptoms. PHYSICAL EXAMINATION: GENERAL: She is conscious, alert and oriented. Appears to be in no acute distress. VITAL SIGNS: Blood pressure is 131/60 this morning with a heart rate of 86. HEENT: Head is normocephalic. NECK: JVP not raised. Carotid pulses with normal upstrokes without any bruits or murmurs. CHEST: Bilaterally symmetric and nontender. HEART: PMI localized in the fourth intercostal space. S1 and S2 regular. I to II/ systolic murmu r heard. LUNGS: Clear to percussion and auscultation. ABDOMEN: Soft and nontender belly with moderate obesity. EXTREMITIES: No edema. Good pedal pulses. LABORATORY DATA: White count is down to 12.9 today, hemoglobin is slightly better at 9.4, platelet count is slightly higher at 226,000 today. Potassium is slightly high at 5.3 with a BUN and creatin ine of 75 and 2.07 today. IMPRESSION: 1. Atrial fibrillation initially, but now sinus rhythm. 2. Diastolic dysfunction by 2D echocardiogram this admission. There was congestive heart failure b y chest x-ray on 02/01/2017. 3. Hypertension is under control. 4. Possible chronic obstructive pulmonary disease. 5. Dyslipidemia. 6. Chronic kidney disease. 7. Chest pain symptoms improved with negative troponin so far. 8. Recurrent bradycardia. RECOMMENDATIONS: Continue same treatment cardiologically. As for the management of hyperkalemia an d renal insufficiency is concerned, Dr. Holloway is on the case and I will leave the management to him. Dictated By: JENNIFER MCCLENDON MD, RA/ELISEO Conf#: [id number] DID#: [id number]
[2017-02-15] MEDS: ATORVASTATIN 10 MG TAB PO SCH (21:17)
[2017-02-16] VITALS (12 sets, daily range): BP systolic 130–156; BP diastolic 61–71; PULSE 72–80; RESP 18–20
[2017-02-16] MEDS: OXYCODONE/ACETAMINOPHEN (5/325) TAB PO PRN (00:14)
[2017-02-16] MEDS: PANTOPRAZOLE (EC) 40 MG TAB PO SCH (06:01)
[2017-02-16] MEDS: DILTIAZEM 30 MG TAB PO SCH ×3 (06:02→21:13)
[2017-02-16 06:40] LABS: ADD SCAN DIFF NO
[2017-02-16 06:44] LABS: ABNORMAL IP MESSAGE 1; BASOPHILS % 0.1 % (0.0-2.0); EOSINOPHILS % 0.1 % (0.0-7.0); HEMATOCRIT 30.2 % (37.0-47.0); HEMOGLOBIN 9.5 g/dl (12.0-16.0); LYMPHOCYTES # 0.5 10^3/ul (0.8-2.9); LYMPHOCYTES % 4.1 % (15.0-51.0); MEAN CORPUSCULAR HGB CONC 31.5 g/dl (32.0-37.0); MEAN CORPUSCULAR VOLUME 98.7 fl (82.0-101.0); MEAN PLATELET VOLUME 10.2 fl (7.4-10.4); MONOCYTE # 0.8 10^3/ul (0.3-0.9); NEUTROPHIL # 11.4 10^3/ul (1.6-7.5); NEUTROPHILS % 88.9 % (39.0-77.0); PLATELET COUNT 195 10^3/UL (140-415); RED BLOOD COUNT 3.06 10^6/ul (4.20-5.40); RED CELL DISTRIBUTION WIDTH 19.3 % (11.5-14.5); WHITE BLOOD COUNT 12.8 10^3/ul (4.8-10.8)
[2017-02-16 06:56] LABS: CREATININE 2.44 mg/dl (0.44-1.00)
[2017-02-16 06:57] LABS: CALCIUM 8.9 mg/dl (8.4-10.2)
[2017-02-16] MEDS: ALBUTEROL/IPRATROPIUM (NEB) 3 ML AMP HHN SCH ×3 (08:11→20:25)
[2017-02-16] MEDS: CALCIUM CARBONATE 500 MG CHEW TAB PO SCH ×3 (08:37→17:59)
[2017-02-16] MEDS: AMIODARONE 200 MG TAB PO SCH (08:39)
[2017-02-16] MEDS: BENAZEPRIL 20 MG TAB PO SCH ×3 (08:40→20:22)
[2017-02-16] MEDS: ASPIRIN (EC) 325 MG TAB PO SCH (08:41)
[2017-02-16] MEDS: ISOSORBIDE DINITRATE 10 MG TAB PO SCH ×3 (08:42→20:23)
[2017-02-16] MEDS: METHYLPREDNISOLONE 40 MG INJ IV SCH (08:45)
[2017-02-16] MEDS: HEPARIN 5,000 UNIT/0.5 ML SYG SC SCH ×2 (08:48→20:23)
--- NOTE | 2017-02-16 13:34 | PN ---
Date/Time of Note Date/Time of Note DATE: 02/16/17 TIME: 13:31 Assessment/Plan VTE Prophylaxis VTE Prophylaxis Intervention: heparin, other Lines/Catheters IV Catheter Type (from Nrs): PICC Line Assessment/Plan Assessment/Plan - Recurrent atrial fibrillation with RVR, continue Cardizem and amiodarone, continue telemetry monitoring, follow-up cardiology recommendations. - Bradycardia, patient is undergoing evaluation for pacemaker, continue to follow-up cardiology recommendation, continue telemetry monitoring. - Possible bronchitis versus early pneumonia. s/p treatment., continue breathing treatments. - Ecoli urinary tract infection, s/p treatment. - Diastolic dysfunction congestive heart failure. Dr. Iraheta is following and cardiology consultation, continue gentle diuresis. - Atrial fibrillation at controlled rate. Continue aspirin and metoprolol. - Hypertension. Continue metoprolol and benazepril. - Aortic stenosis. - Hyperlipidemia. Continue statin. - Possible chronic obstructive pulmonary disease exacerbation. Continue patient on breathing treatments, steroids taper. - Stage IV chronic kidney disease. Kidney ultrasound is consistent with chronic kidney disease. - Dr. oGrdon is following in nephrology consultation. - Gout. Continue allopurinol. - Anemia of chronic disease, continue Epogen. -Hyperkalemia- resolved Continue Lovenox for deep venous thrombosis prophylaxis and Protonix for peptic ulcer disease prophylaxis. DC plan to SNF. Further recommendations based on clinical course. Plan of care discussed with Dr. Olivier. Subjective 24 Hr Interval Summary Free Text/Dictation - Recurrent atrial fibrillation with RVR, continue Cardizem and amiodarone, continue telemetry monitoring, follow-up cardiology recommendations. - Bradycardia, patient is undergoing evaluation for pacemaker, continue to follow-up cardiology recommendation, continue telemetry monitoring. - Possible bronchitis versus early pneumonia. s/p treatment., continue breathing treatments. - Ecoli urinary tract infection, s/p treatment. - Diastolic dysfunction congestive heart failure. Dr. Iraheta is following and cardiology consultation, continue gentle diuresis. - Atrial fibrillation at controlled rate. Continue aspirin and metoprolol. - Hypertension. Continue metoprolol and benazepril. - Aortic stenosis. - Hyperlipidemia. Continue statin. - Possible chronic obstructive pulmonary disease exacerbation. Continue patient on breathing treatments, steroids taper. - Stage IV chronic kidney disease. Kidney ultrasound is consistent with chronic kidney disease. Dr. Gordon is following in nephrology consultation. - Gout. Continue allopurinol. - Anemia of chronic disease, continue Epogen. -Hyperkalemia- Kayexalate x1, am labs. Continue Lovenox for deep venous thrombosis prophylaxis and Protonix for peptic ulcer disease prophylaxis. DC plan to SNF. Further recommendations based on clinical course. Plan of care discussed with Dr. Olivier. Eyes: no complaints ENT: no complaints Respiratory: no complaints Cardiovascular: no complaints Gastrointestinal: no complaints Genitourinary: no complaints Musculoskeletal: no complaints Skin: no complaints Neurologic: no complaints Endocrine: no complaints Lymphatic: no complaints Psychological: no complaints Immunologic: no complaints Exam/Review of Systems Vital Signs Vitals Vital Signs Date Time Temp Pulse Resp B/P Pulse Ox O2 Delivery O2 Flow Rate FiO2 02/16/17 12:10 97.9 75 18 130/63 96 02/16/17 08:12 21 Intake and Output 02/15/17 02/15/17 02/16/17 15:00 23:00 07:00 Intake Total 420 ml Balance 420 ml Exam Constitutional: alert, oriented, well developed Psych: no complaints Head: atraumatic Eyes: EOMI ENMT: nl external ears & nose Neck: non-tender Respiratory: clear to auscultation Cardiovascular: nl pulses Gastrointestinal: non-tender, soft Musculoskeletal: nl extremities to inspection Extremities: normal pulses 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: nl mental status, nl speech Skin: nl turgor Lymph: nontender Results Result Diagram: 02/16/17 0550 02/16/17 0550 Results 24 hrs Laboratory Tests Test 02/16/17 05:50 White Blood Count 12.8 H Red Blood Count 3.06 L Hemoglobin 9.5 L Hematocrit 30.2 L Mean Corpuscular Volume 98.7 Mean Corpuscular Hemoglobin 31.0 Mean Corpuscular Hemoglobin Concent 31.5 L Red Cell Distribution Width 19.3 H Platelet Count 195 Mean Platelet Volume 10.2 Neutrophils % 88.9 H Lymphocytes % 4.1 L Monocytes % 6.0 Eosinophils % 0.1 Basophils % 0.1 Nucleated Red Blood Cells % 0.0 Neutrophils # 11.4 H Lymphocytes # 0.5 L Monocytes # 0.8 Eosinophils # 0.0 Basophils # 0.0 Nucleated Red Blood Cells # 0.0 Sodium Level 139 Potassium Level 5.0 Chloride Level 114 H Carbon Dioxide Level 16 L Anion Gap 14 Blood Urea Nitrogen 72 H Creatinine 2.44 H Glucose Level 112 Calcium Level 8.9 Medications Medications Current Medications Acetaminophen (Tylenol Tab) 650 mg Q4H PRN PO PAIN AND OR ELEVATED TEMP Last administered on 01/29/17 18:54; Admin Dose 650 MG; Start 01/29/17 at 05:30 Guaifenesin/ Codeine Phosphate (Robitussin Ac Liquid Cup) 10 ml Q4H PRN PO COUGH Last administered on 02/07/17 17:58; Admin Dose 10 ML; Start 01/29/17 at 05:30 Atorvastatin Calcium (Lipitor) 10 mg HS PO Last administered on 02/15/17 21:17 ; Admin Dose 10 MG; Start 01/29/17 at 21:00 Pantoprazole (Protonix Tab) 40 mg DAILY@06 PO Last administered on 02/16/17 06 :01; Admin Dose 40 MG; Start 01/29/17 at 16:00 Epoetin Larry (Epogen (Non Esrd/Non Oncology)) 3,000 units MoWeFr@17 SC Last administered on 02/14/17 18:28; Admin Dose 3,000 UNITS; Start 01/31/17 at 17:00 Aspirin (Ecotrin) 325 mg DAILY PO Last administered on 02/16/17 08:41; Admin Dose 325 MG; Start 01/31/17 at 09:00 Diltiazem HCl (Cardizem Iv) 5 mg Q4 PRN IV HR>110 Hold SBP<100 Last administered on 02/13/17 21:51; Admin Dose 5 MG; Start 01/30/17 at 20:30 IV Flush (NS 10 ml) 10 ml PRN PRN IV FLUSH LINE; Start 01/31/17 at 17:30 Nitroglycerin (Nitroglycerin (Sl Tab) 0.4 Mg) 1 tab Q5M PRN SL ANGINA; Start at 14:30 Ondansetron HCl (Zofran Tab) 4 mg Q6H PRN PO NAUSEA AND/OR VOMITING; Start 11/09 at 14:30 Diphenhydramine HCl (Benadryl) 50 mg Q6H PRN PO ALLERGIC REACTION Last administered on 02/11/17 21:56; Admin Dose 50 MG; Start 02/02/17 at 22:30 Isosorbide Dinitrate (Isordil) 10 mg TID PO Last administered on 02/16/17 12: 49; Admin Dose 10 MG; Start 02/03/17 at 15:30 Al Hydrox/Mg Hydrox/Simethicone (Mag-Al Plus) 30 ml Q6H PRN PO GASTROINTESTINAL UPSET; Start 02/03/17 at 15:30 Metoprolol Tartrate (Lopressor) 25 mg BID PO Last administered on 02/09/17 21: 03; Admin Dose 25 MG; Start 02/05/17 at 16:00; Status Future Hold Heparin Sodium (Porcine) (Heparin (5000 Units/0.5 ml)) 5,000 unit BID SC Last administered on 02/13/17 08:46; Admin Dose 5,000 UNIT; Start 02/05/17 at 16:00 Amiodarone HCl (Cordarone) 200 mg DAILY PO Last administered on 02/16/17 08:39 ; Admin Dose 200 MG; Start 02/08/17 at 09:00 Diltiazem HCl (Cardizem) 30 mg Q8 PO Last administered on 02/16/17 06:02; Admin Dose 30 MG; Start 02/12/17 at 14:00 Methylprednisolone Sodium Succinate (Solu-Medrol) 20 mg DAILY IV Last administered on 02/16/17 08:45; Admin Dose 20 MG; Start 02/13/17 at 09:00 Oxycodone/ Acetaminophen (Percocet (5/ 325)) 1 tab Q4H PRN PO PAIN Last administered on 02/16/17 00:14; Admin Dose 1 TAB; Start 02/13/17 at 21:00 Benazepril HCl (Lotensin) 30 mg BID PO ; Start 02/16/17 at 09:00 KATIE MENDEZ Feb 16, 2017 13:34
--- NOTE | 2017-02-16 15:53 | PN ---
DATE: 02/16/2017 FOLLOWUP CARDIOLOGY NOTE SUBJECTIVE: On questioning, patient denies any complaint of chest pain or shortness of breath and i s sitting comfortably on the edge of the bed. PHYSICAL EXAMINATION: VITAL SIGNS: Blood pressure is 156/71. She is afebrile. Heart rate is 73. Respiratory rate is 16 . HEAD: Normocephalic. NECK: JVP not raised. Carotid pulses with normal upstrokes. CHEST: Bilaterally symmetrical. HEART: S1, S2 are regular with a I/ systolic murmur. LUNGS: Revealing rare basilar rhonchi. No intercostal retractions are seen. ABDOMEN: Revealed a soft and nontender belly with moderate obesity. EXTREMITIES: Reveals good femoral pulses, good pedal pulses. No pedal edema. LABORATORY DATA: So far revealed that telemetry has been revealing sinus rhythm. The CBC reveals a white count that is slightly down at 12.8 today. Hemoglobin is slightly higher at 9.5. Platelet c ount is normal at 195,000. The chemistry revealed a potassium normal at 5.0 and the BUN and c reatinine are 72 and 2.44 respectively. IMPRESSION: 1. Slightly uncontrolled hypertension. 2. atrial fibrillation, now in sinus rhythm. 3. Diastolic dysfunction by echo and status post congestive heart failure by chest x-ray on 017. 4. Uncontrolled hypertension. 5. Possible chronic obstructive pulmonary disease. 6. Dyslipidemia. RECOMMENDATIONS: I will change the benazepril from 20 mg p.o. b.i.d. to 30 mg p.o. b.i.d. Dictated By: JENNIFER MCCLENDON MD, RA/ELISEO Conf#: [id number] DID#: [id number]
--- NOTE | 2017-02-16 17:35 | PN ---
Date/Time of Note Date/Time of Note DATE: 02/16/17 TIME: 17:29 Assessment/Plan VTE Prophylaxis VTE Prophylaxis Intervention: other Assessment/Plan Chief Complaint/Hosp Course ckd 4 stable creat /non uraemic ok to dc from renal perspective Problems: Subjective 24 Hr Interval Summary Constitutional: no complaints Respiratory: no complaints Cardiovascular: no complaints Musculoskeletal: no complaints Neurologic: no complaints Exam/Review of Systems Vital Signs Vitals Vital Signs Date Time Temp Pulse Resp B/P Pulse Ox O2 Delivery O2 Flow Rate FiO2 02/16/17 16:00 74 02/16/17 15:25 98.0 18 132/61 96 02/16/17 13:46 21 Intake and Output 02/15/17 02/15/17 02/16/17 15:00 23:00 07:00 Intake Total 420 ml Balance 420 ml Exam Constitutional: alert, oriented Neck: supple Respiratory: diminished breath sounds Cardiovascular: regular rate and rhythm Gastrointestinal: soft Extremities: normal pulses Results Result Diagram: 02/16/17 0550 02/16/17 0550 Results 24 hrs Laboratory Tests Test 02/16/17 05:50 White Blood Count 12.8 H Red Blood Count 3.06 L Hemoglobin 9.5 L Hematocrit 30.2 L Mean Corpuscular Volume 98.7 Mean Corpuscular Hemoglobin 31.0 Mean Corpuscular Hemoglobin Concent 31.5 L Red Cell Distribution Width 19.3 H Platelet Count 195 Mean Platelet Volume 10.2 Neutrophils % 88.9 H Lymphocytes % 4.1 L Monocytes % 6.0 Eosinophils % 0.1 Basophils % 0.1 Nucleated Red Blood Cells % 0.0 Neutrophils # 11.4 H Lymphocytes # 0.5 L Monocytes # 0.8 Eosinophils # 0.0 Basophils # 0.0 Nucleated Red Blood Cells # 0.0 Sodium Level 139 Potassium Level 5.0 Chloride Level 114 H Carbon Dioxide Level 16 L Anion Gap 14 Blood Urea Nitrogen 72 H Creatinine 2.44 H Glucose Level 112 Calcium Level 8.9 Medications Medications Current Medications Acetaminophen (Tylenol Tab) 650 mg Q4H PRN PO PAIN AND OR ELEVATED TEMP Last administered on 01/29/17 18:54; Admin Dose 650 MG; Start 01/29/17 at 05:30 Guaifenesin/ Codeine Phosphate (Robitussin Ac Liquid Cup) 10 ml Q4H PRN PO COUGH Last administered on 02/07/17 17:58; Admin Dose 10 ML; Start 01/29/17 at 05:30 Atorvastatin Calcium (Lipitor) 10 mg HS PO Last administered on 02/15/17 21:17 ; Admin Dose 10 MG; Start 01/29/17 at 21:00 Pantoprazole (Protonix Tab) 40 mg DAILY@06 PO Last administered on 02/16/17 06 :01; Admin Dose 40 MG; Start 01/29/17 at 16:00 Epoetin Larry (Epogen (Non Esrd/Non Oncology)) 3,000 units MoWeFr@17 SC Last administered on 02/14/17 18:28; Admin Dose 3,000 UNITS; Start 01/31/17 at 17:00 Aspirin (Ecotrin) 325 mg DAILY PO Last administered on 02/16/17 08:41; Admin Dose 325 MG; Start 01/31/17 at 09:00 Diltiazem HCl (Cardizem Iv) 5 mg Q4 PRN IV HR>110 Hold SBP<100 Last administered on 02/13/17 21:51; Admin Dose 5 MG; Start 01/30/17 at 20:30 IV Flush (NS 10 ml) 10 ml PRN PRN IV FLUSH LINE; Start 01/31/17 at 17:30 Nitroglycerin (Nitroglycerin (Sl Tab) 0.4 Mg) 1 tab Q5M PRN SL ANGINA; Start at 14:30 Ondansetron HCl (Zofran Tab) 4 mg Q6H PRN PO NAUSEA AND/OR VOMITING; Start 11/09 at 14:30 Diphenhydramine HCl (Benadryl) 50 mg Q6H PRN PO ALLERGIC REACTION Last administered on 02/11/17 21:56; Admin Dose 50 MG; Start 02/02/17 at 22:30 Isosorbide Dinitrate (Isordil) 10 mg TID PO Last administered on 02/16/17 12: 49; Admin Dose 10 MG; Start 02/03/17 at 15:30 Al Hydrox/Mg Hydrox/Simethicone (Mag-Al Plus) 30 ml Q6H PRN PO GASTROINTESTINAL UPSET; Start 02/03/17 at 15:30 Metoprolol Tartrate (Lopressor) 25 mg BID PO Last administered on 02/09/17 21: 03; Admin Dose 25 MG; Start 02/05/17 at 16:00; Status Future Hold Heparin Sodium (Porcine) (Heparin (5000 Units/0.5 ml)) 5,000 unit BID SC Last administered on 02/13/17 08:46; Admin Dose 5,000 UNIT; Start 02/05/17 at 16:00 Amiodarone HCl (Cordarone) 200 mg DAILY PO Last administered on 02/16/17 08:39 ; Admin Dose 200 MG; Start 02/08/17 at 09:00 Diltiazem HCl (Cardizem) 30 mg Q8 PO Last administered on 02/16/17 14:43; Admin Dose 30 MG; Start 02/12/17 at 14:00 Methylprednisolone Sodium Succinate (Solu-Medrol) 20 mg DAILY IV Last administered on 02/16/17 08:45; Admin Dose 20 MG; Start 02/13/17 at 09:00 Oxycodone/ Acetaminophen (Percocet (5/ 325)) 1 tab Q4H PRN PO PAIN Last administered on 02/16/17 00:14; Admin Dose 1 TAB; Start 02/13/17 at 21:00 Benazepril HCl (Lotensin) 30 mg BID PO ; Start 02/16/17 at 09:00 NATHAN DE LA GARZA MD Feb 16, 2017 17:35
[2017-02-16] MEDS: ATORVASTATIN 10 MG TAB PO SCH (20:22)
[2017-02-16] MEDS: DIPHENHYDRAMINE 50 MG CAP PO PRN (23:04)
[2017-02-17] VITALS (15 sets, daily range): BP systolic 133–177; BP diastolic 62–78; PULSE 67–93; RESP 18–70
[2017-02-17] MEDS: PANTOPRAZOLE (EC) 40 MG TAB PO SCH (06:19)
[2017-02-17] MEDS: DILTIAZEM 30 MG TAB PO SCH (06:19)
[2017-02-17 07:19] LABS: ADD SCAN DIFF NO
[2017-02-17 07:26] LABS: ABNORMAL IP MESSAGE 1; BASOPHILS % 0.1 % (0.0-2.0); EOSINOPHILS % 0.1 % (0.0-7.0); HEMATOCRIT 32.5 % (37.0-47.0); HEMOGLOBIN 10.2 g/dl (12.0-16.0); LYMPHOCYTES # 0.6 10^3/ul (0.8-2.9); LYMPHOCYTES % 4.2 % (15.0-51.0); MEAN CORPUSCULAR HEMOGLOBIN 30.9 pg (29.0-33.0); MEAN CORPUSCULAR HGB CONC 31.4 g/dl (32.0-37.0); MEAN CORPUSCULAR VOLUME 98.5 fl (82.0-101.0); MEAN PLATELET VOLUME 10.2 fl (7.4-10.4); MONOCYTE # 0.9 10^3/ul (0.3-0.9); MONOCYTES % 6.5 % (0.0-11.0); NEUTROPHIL # 12.4 10^3/ul (1.6-7.5); NEUTROPHILS % 88.6 % (39.0-77.0); PLATELET COUNT 188 10^3/UL (140-415); RED CELL DISTRIBUTION WIDTH 19.3 % (11.5-14.5)
[2017-02-17 07:47] LABS: POTASSIUM 5.3 mmol/L (3.5-5.1)
[2017-02-17 07:49] LABS: CREATININE 2.03 mg/dl (0.44-1.00)
[2017-02-17 07:50] LABS: CALCIUM 9.2 mg/dl (8.4-10.2)
[2017-02-17] MEDS: ALBUTEROL/IPRATROPIUM (NEB) 3 ML AMP HHN SCH ×3 (07:56→21:58)
[2017-02-17] MEDS: HEPARIN 5,000 UNIT/0.5 ML SYG SC SCH ×2 (09:00→20:37)
[2017-02-17] MEDS: ASPIRIN (EC) 325 MG TAB PO SCH (09:22)
[2017-02-17] MEDS: ISOSORBIDE DINITRATE 10 MG TAB PO SCH ×3 (09:23→20:37)
[2017-02-17] MEDS: CALCIUM CARBONATE 500 MG CHEW TAB PO SCH ×3 (09:23→18:00)
[2017-02-17] MEDS: BENAZEPRIL 20 MG TAB PO SCH ×2 (09:23→20:38)
[2017-02-17] MEDS: METHYLPREDNISOLONE 40 MG INJ IV SCH (09:24)
[2017-02-17] MEDS: AMIODARONE 200 MG TAB PO SCH (09:24)
--- NOTE | 2017-02-17 12:24 | CONS ---
Date/Time of Note Date/Time of Note DATE: 02/17/17 TIME: 12:15 Assessment/Plan Assessment/Plan Chief Complaint/Hosp Course IMPRESSION: 1. Atrial fibrillation, not currently on systemic anticoagulation but on asa, rate controlled and currently in SR/SB-Had recurrent AF/AFL 02/16 to 150 and now back in SR 2. Shortness of breath, assess for congestive heart failure. 3. Diastolic dysfunction by 2D echo this admission.-CHF by cxr 02/01 4. Hypertension. 5. Possible chronic obstructive pulmonary disease. 6. Possible bronchitis. 7. Possible pneumonia. 8. Dyslipidemia. 9. Chronic kidney disease. 10. Anemia. 11. Leukocytosis 12. Chest pain-improved/negative troponin x 2/NO changes on ECG 14. Bradycardia-to 30's still recurrent-? 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-no recurrent twan at this time of low dose dilt/amio Recc: -Tele -Continue asa/statin/isordil/ACEI -Continue steroids/bronchodilators/abx's -Continue SQ heparin -Continue low dose amio -Now having recurrent AF with RVR and thus will make slight increase to diltiazem and continue low dose amio -tolerating medications well without sig twan but has had recurrent Tachy -Follow volume status closely Problems: Consultation Date/Type/Reason Admit Date/Time Jan 31, 2017 at 15:05 Initial Consult Date 01/30/2017 Type of Consultation: cardiology Reason for Consultation AF Referring Provider: LOREN ROSE MD Exam/Review of Systems Vital Signs Vitals Vital Signs Date Time Temp Pulse Resp B/P Pulse Ox O2 Delivery O2 Flow Rate FiO2 02/17/17 11:59 97.9 81 20 155/71 96 02/17/17 07:57 21 02/17/17 05:00 Room Air Intake and Output 02/16/17 02/16/17 02/17/17 15:00 23:00 07:00 Intake Total 950 ml 420 ml Balance 950 ml 420 ml Exam Review of Systems: CONSTITUTIONAL: No fevers, chills. PULMONARY: mild sob CARDIOVASCULAR: No chest pain/palpitations GASTROINTESTINAL: No nausea/vomiting. GENITOURINARY: No hematuria/dysuria. MUSCULOSKELETAL: No myagias/arthalgias. PSYCHIATRIC: The patient denies depression. NEUROLOGIC: No weakness Constitutional: alert, oriented Psych: no complaints Head: normocephalic ENMT: mucosa pink and moist Neck: jvd (9 cm water), supple Respiratory: diminished breath sounds (at bases/B) Cardiovascular: regular rate and rhythm Gastrointestinal: non-tender, soft Musculoskeletal: muscle tone (normal) Extremities: edema (none) 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: other (No focal deficits) Results Result Diagram: 02/17/17 0610 02/17/17 0610 Results 24 hrs Laboratory Tests Test 02/17/17 06:10 White Blood Count 14.0 H Red Blood Count 3.30 L Hemoglobin 10.2 L Hematocrit 32.5 L Mean Corpuscular Volume 98.5 Mean Corpuscular Hemoglobin 30.9 Mean Corpuscular Hemoglobin Concent 31.4 L Red Cell Distribution Width 19.3 H Platelet Count 188 Mean Platelet Volume 10.2 Neutrophils % 88.6 H Lymphocytes % 4.2 L Monocytes % 6.5 Eosinophils % 0.1 Basophils % 0.1 Nucleated Red Blood Cells % 0.0 Neutrophils # 12.4 H Lymphocytes # 0.6 L Monocytes # 0.9 Eosinophils # 0.0 Basophils # 0.0 Nucleated Red Blood Cells # 0.0 Sodium Level 136 Potassium Level 5.3 H Chloride Level 109 Carbon Dioxide Level 18 L Anion Gap 14 Blood Urea Nitrogen 71 H Creatinine 2.03 H Glucose Level 92 Calcium Level 9.2 Medications Medications Current Medications Acetaminophen (Tylenol Tab) 650 mg Q4H PRN PO PAIN AND OR ELEVATED TEMP Last administered on 01/29/17 18:54; Admin Dose 650 MG; Start 01/29/17 at 05:30 Guaifenesin/ Codeine Phosphate (Robitussin Ac Liquid Cup) 10 ml Q4H PRN PO COUGH Last administered on 02/07/17 17:58; Admin Dose 10 ML; Start 01/29/17 at 05:30 Atorvastatin Calcium (Lipitor) 10 mg HS PO Last administered on 02/16/17 20:22 ; Admin Dose 10 MG; Start 01/29/17 at 21:00 Pantoprazole (Protonix Tab) 40 mg DAILY@06 PO Last administered on 02/17/17 06 :19; Admin Dose 40 MG; Start 01/29/17 at 16:00 Epoetin Larry (Epogen (Non Esrd/Non Oncology)) 3,000 units MoWeFr@17 SC Last administered on 02/14/17 18:28; Admin Dose 3,000 UNITS; Start 01/31/17 at 17:00 Aspirin (Ecotrin) 325 mg DAILY PO Last administered on 02/17/17 09:22; Admin Dose 325 MG; Start 01/31/17 at 09:00 Diltiazem HCl (Cardizem Iv) 5 mg Q4 PRN IV HR>110 Hold SBP<100 Last administered on 02/13/17 21:51; Admin Dose 5 MG; Start 01/30/17 at 20:30 IV Flush (NS 10 ml) 10 ml PRN PRN IV FLUSH LINE; Start 01/31/17 at 17:30 Nitroglycerin (Nitroglycerin (Sl Tab) 0.4 Mg) 1 tab Q5M PRN SL ANGINA; Start at 14:30 Ondansetron HCl (Zofran Tab) 4 mg Q6H PRN PO NAUSEA AND/OR VOMITING; Start 11/09 at 14:30 Diphenhydramine HCl (Benadryl) 50 mg Q6H PRN PO ALLERGIC REACTION Last administered on 02/16/17 23:04; Admin Dose 50 MG; Start 02/02/17 at 22:30 Isosorbide Dinitrate (Isordil) 10 mg TID PO Last administered on 02/17/17 09: 23; Admin Dose 10 MG; Start 02/03/17 at 15:30 Al Hydrox/Mg Hydrox/Simethicone (Mag-Al Plus) 30 ml Q6H PRN PO GASTROINTESTINAL UPSET; Start 02/03/17 at 15:30 Metoprolol Tartrate (Lopressor) 25 mg BID PO Last administered on 02/09/17 21: 03; Admin Dose 25 MG; Start 02/05/17 at 16:00; Status Future Hold Heparin Sodium (Porcine) (Heparin (5000 Units/0.5 ml)) 5,000 unit BID SC Last administered on 02/13/17 08:46; Admin Dose 5,000 UNIT; Start 02/05/17 at 16:00 Amiodarone HCl (Cordarone) 200 mg DAILY PO Last administered on 02/17/17 09:24 ; Admin Dose 200 MG; Start 02/08/17 at 09:00 Diltiazem HCl (Cardizem) 30 mg Q8 PO Last administered on 02/17/17 06:19; Admin Dose 30 MG; Start 02/12/17 at 14:00 Methylprednisolone Sodium Succinate (Solu-Medrol) 20 mg DAILY IV Last administered on 02/17/17 09:24; Admin Dose 20 MG; Start 02/13/17 at 09:00 Oxycodone/ Acetaminophen (Percocet (5/ 325)) 1 tab Q4H PRN PO PAIN Last administered on 02/16/17 00:14; Admin Dose 1 TAB; Start 02/13/17 at 21:00 Benazepril HCl (Lotensin) 30 mg BID PO Last administered on 02/17/17 09:23; Admin Dose 30 MG; Start 02/16/17 at 09:00 ALVINA GARCIA Feb 17, 2017 12:24
[2017-02-17] MEDS ORDERED: DILTIAZEM 60 MG TAB PO SCH ×2 (14:00)
--- NOTE | 2017-02-17 15:30 | PN ---
Date/Time of Note Date/Time of Note DATE: 02/17/17 TIME: 15:29 Assessment/Plan VTE Prophylaxis VTE Prophylaxis Intervention: SCD's Lines/Catheters IV Catheter Type (from Nrs): PICC Line Central line still needed: Yes Assessment/Plan Chief Complaint/Hosp Course ASSESSMENT AND PLAN: - VRE UTI, start Zyvox, contact isolation. - Recurrent atrial fibrillation with RVR, continue Cardizem and amiodarone, continue telemetry monitoring, follow-up cardiology recommendations. - Bradycardia, patient is undergoing evaluation for pacemaker, continue to follow-up cardiology recommendation, continue telemetry monitoring. - Possible bronchitis versus early pneumonia. s/p treatment., continue breathing treatments. - Ecoli urinary tract infection, s/p treatment. - Diastolic dysfunction congestive heart failure. Dr. Iraheta is following and cardiology consultation, continue gentle diuresis. - Atrial fibrillation at controlled rate. Continue aspirin and metoprolol. - Hypertension. Continue metoprolol and benazepril. - Aortic stenosis. - Hyperlipidemia. Continue statin. - Possible chronic obstructive pulmonary disease exacerbation. Continue patient on breathing treatments, steroids taper. - Stage IV chronic kidney disease. Kidney ultrasound is consistent with chronic kidney disease. Dr. Gordon is following in nephrology consultation. - Gout. Continue allopurinol. - Anemia of chronic disease, continue Epogen. Continue Lovenox for deep venous thrombosis prophylaxis and Protonix for peptic ulcer disease prophylaxis. Further recommendations based on clinical course. Plan of care discussed with Dr. Olivier. Problems: Exam/Review of Systems Vital Signs Vitals Vital Signs Date Time Temp Pulse Resp B/P Pulse Ox O2 Delivery O2 Flow Rate FiO2 02/17/17 14:36 72 20 98 21 02/17/17 11:59 97.9 155/71 02/17/17 05:00 Room Air Intake and Output 02/16/17 02/16/17 02/17/17 15:00 23:00 07:00 Intake Total 950 ml 420 ml Balance 950 ml 420 ml Exam Constitutional: alert, oriented Psych: no complaints Head: atraumatic, normocephalic Eyes: nl conjunctiva Neck: non-tender, supple Respiratory: other (Diminished at the bases) Cardiovascular: other (Irregularly irregular rhythm) Gastrointestinal: non-tender, soft Musculoskeletal: nl extremities to inspection, nl gait and stance Extremities: normal pulses 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: STRAIGHT EDGER II-XII intact Results Result Diagram: 02/17/17 0610 02/17/17 0610 Results 24 hrs Laboratory Tests Test 02/17/17 06:10 White Blood Count 14.0 H Red Blood Count 3.30 L Hemoglobin 10.2 L Hematocrit 32.5 L Mean Corpuscular Volume 98.5 Mean Corpuscular Hemoglobin 30.9 Mean Corpuscular Hemoglobin Concent 31.4 L Red Cell Distribution Width 19.3 H Platelet Count 188 Mean Platelet Volume 10.2 Neutrophils % 88.6 H Lymphocytes % 4.2 L Monocytes % 6.5 Eosinophils % 0.1 Basophils % 0.1 Nucleated Red Blood Cells % 0.0 Neutrophils # 12.4 H Lymphocytes # 0.6 L Monocytes # 0.9 Eosinophils # 0.0 Basophils # 0.0 Nucleated Red Blood Cells # 0.0 Sodium Level 136 Potassium Level 5.3 H Chloride Level 109 Carbon Dioxide Level 18 L Anion Gap 14 Blood Urea Nitrogen 71 H Creatinine 2.03 H Glucose Level 92 Calcium Level 9.2 Medications Medications Current Medications Acetaminophen (Tylenol Tab) 650 mg Q4H PRN PO PAIN AND OR ELEVATED TEMP Last administered on 01/29/17 18:54; Admin Dose 650 MG; Start 01/29/17 at 05:30 Guaifenesin/ Codeine Phosphate (Robitussin Ac Liquid Cup) 10 ml Q4H PRN PO COUGH Last administered on 02/07/17 17:58; Admin Dose 10 ML; Start 01/29/17 at 05:30 Atorvastatin Calcium (Lipitor) 10 mg HS PO Last administered on 02/16/17 20:22 ; Admin Dose 10 MG; Start 01/29/17 at 21:00 Pantoprazole (Protonix Tab) 40 mg DAILY@06 PO Last administered on 02/17/17 06 :19; Admin Dose 40 MG; Start 01/29/17 at 16:00 Epoetin Larry (Epogen (Non Esrd/Non Oncology)) 3,000 units MoWeFr@17 SC Last administered on 02/14/17 18:28; Admin Dose 3,000 UNITS; Start 01/31/17 at 17:00 Aspirin (Ecotrin) 325 mg DAILY PO Last administered on 02/17/17 09:22; Admin Dose 325 MG; Start 01/31/17 at 09:00 Diltiazem HCl (Cardizem Iv) 5 mg Q4 PRN IV HR>110 Hold SBP<100 Last administered on 02/13/17 21:51; Admin Dose 5 MG; Start 01/30/17 at 20:30 IV Flush (NS 10 ml) 10 ml PRN PRN IV FLUSH LINE; Start 01/31/17 at 17:30 Nitroglycerin (Nitroglycerin (Sl Tab) 0.4 Mg) 1 tab Q5M PRN SL ANGINA; Start at 14:30 Ondansetron HCl (Zofran Tab) 4 mg Q6H PRN PO NAUSEA AND/OR VOMITING; Start 11/09 at 14:30 Diphenhydramine HCl (Benadryl) 50 mg Q6H PRN PO ALLERGIC REACTION Last administered on 02/16/17 23:04; Admin Dose 50 MG; Start 02/02/17 at 22:30 Isosorbide Dinitrate (Isordil) 10 mg TID PO Last administered on 02/17/17 13: 10; Admin Dose 10 MG; Start 02/03/17 at 15:30 Al Hydrox/Mg Hydrox/Simethicone (Mag-Al Plus) 30 ml Q6H PRN PO GASTROINTESTINAL UPSET; Start 02/03/17 at 15:30 Metoprolol Tartrate (Lopressor) 25 mg BID PO Last administered on 02/09/17 21: 03; Admin Dose 25 MG; Start 02/05/17 at 16:00; Status Future Hold Heparin Sodium (Porcine) (Heparin (5000 Units/0.5 ml)) 5,000 unit BID SC Last administered on 02/13/17 08:46; Admin Dose 5,000 UNIT; Start 02/05/17 at 16:00 Amiodarone HCl (Cordarone) 200 mg DAILY PO Last administered on 02/17/17 09:24 ; Admin Dose 200 MG; Start 02/08/17 at 09:00 Methylprednisolone Sodium Succinate (Solu-Medrol) 20 mg DAILY IV Last administered on 02/17/17 09:24; Admin Dose 20 MG; Start 02/13/17 at 09:00 Oxycodone/ Acetaminophen (Percocet (5/ 325)) 1 tab Q4H PRN PO PAIN Last administered on 02/16/17 00:14; Admin Dose 1 TAB; Start 02/13/17 at 21:00 Benazepril HCl (Lotensin) 30 mg BID PO Last administered on 02/17/17t 09:23; Admin Dose 30 MG; Start 02/16/17 at 09:00 Diltiazem HCl 60 mg 60 mg Q8 PO ; Start 02/17/17 at 22:00 Linezolid (Zyvox 600mg/D5W (Pmx)) 300 ml @ 300 mls/hr Q12 IVPB ; Start at 17:00 EDWAR VARGAS Feb 17, 2017 15:30
[2017-02-17] MEDS: LINEZOLID 600 MG/D5W (PMX) 300 ML IVPB SCH (16:42)
[2017-02-17] MEDS: EPOETIN 3000 UNITS/ML (NON ESRD/NON ONCOLOGY) SC SCH (18:01)
[2017-02-17] MEDS: ATORVASTATIN 10 MG TAB PO SCH (20:37)
--- NOTE | 2017-02-17 21:06 | CONS ---
Date/Time of Note Date/Time of Note DATE: 02/17/17 TIME: 20:55 Assessment/Plan Assessment/Plan Chief Complaint/Hosp Course multiple problems MARIANO improved, ckd 4 stable Pt prb has ckd4, will get 24 hr studies Anemia, hct stable Problems: Additional Assessment/Plan Leucocytosis persists. Note SK is higher 5.3 Will give 1 dose kayexalate Cont'd Hospitalization Reason: Add 2gm K restriction Consultation Date/Type/Reason Admit Date/Time Jan 31, 2017 at 15:05 Type of Consultation: renal Referring Provider: LOREN ROSE MD 24 HR Interval Summary Free Text/Dictation Pt sitting up in chair Exam/Review of Systems Vital Signs Vitals Vital Signs Date Time Temp Pulse Resp B/P Pulse Ox O2 Delivery O2 Flow Rate FiO2 02/17/17 20:04 97.9 68 20 148/67 98 02/17/17 14:36 21 02/17/17 05:00 Room Air Intake and Output 02/16/17 02/16/17 02/17/17 15:00 23:00 07:00 Intake Total 950 ml 420 ml Balance 950 ml 420 ml Exam Constitutional: alert, obese, oriented, well developed Psych: nl mood/affect, no complaints Head: atraumatic, normocephalic Eyes: EOMI, PERRL, nl conjunctiva, nl lids, nl sclera ENMT: nl external ears & nose, nl lips & teeth, nl nasal mucosa & septum Neck: non-tender, supple Respiratory: clear to auscultation, normal air movement Cardiovascular: nl pulses, regular rate and rhythm Gastrointestinal: nl liver, spleen, non-tender, soft Musculoskeletal: nl extremities to inspection, nl gait and stance Extremities: normal pulses 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: JEWELRY INSPECTOR II-XII intact, nl mental status, nl speech, nl strength Skin: nl turgor, No rash or lesions Lymph: nl lymph nodes Results Result Diagram: 02/17/17 0610 02/17/17 0610 Results 24 hrs Laboratory Tests Test 02/17/17 06:10 White Blood Count 14.0 H Red Blood Count 3.30 L Hemoglobin 10.2 L Hematocrit 32.5 L Mean Corpuscular Volume 98.5 Mean Corpuscular Hemoglobin 30.9 Mean Corpuscular Hemoglobin Concent 31.4 L Red Cell Distribution Width 19.3 H Platelet Count 188 Mean Platelet Volume 10.2 Neutrophils % 88.6 H Lymphocytes % 4.2 L Monocytes % 6.5 Eosinophils % 0.1 Basophils % 0.1 Nucleated Red Blood Cells % 0.0 Neutrophils # 12.4 H Lymphocytes # 0.6 L Monocytes # 0.9 Eosinophils # 0.0 Basophils # 0.0 Nucleated Red Blood Cells # 0.0 Sodium Level 136 Potassium Level 5.3 H Chloride Level 109 Carbon Dioxide Level 18 L Anion Gap 14 Blood Urea Nitrogen 71 H Creatinine 2.03 H Glucose Level 92 Calcium Level 9.2 Medications Medications Current Medications Acetaminophen (Tylenol Tab) 650 mg Q4H PRN PO PAIN AND OR ELEVATED TEMP Last administered on 01/29/17 18:54; Admin Dose 650 MG; Start 01/29/17 at 05:30 Guaifenesin/ Codeine Phosphate (Robitussin Ac Liquid Cup) 10 ml Q4H PRN PO COUGH Last administered on 02/07/17 17:58; Admin Dose 10 ML; Start 01/29/17 at 05:30 Atorvastatin Calcium (Lipitor) 10 mg HS PO Last administered on 02/17/17 20:37 ; Admin Dose 10 MG; Start 01/29/17 at 21:00 Pantoprazole (Protonix Tab) 40 mg DAILY@06 PO Last administered on 02/17/17 06 :19; Admin Dose 40 MG; Start 01/29/17 at 16:00 Epoetin Larry (Epogen (Non Esrd/Non Oncology)) 3,000 units MoWeFr@17 SC Last administered on 02/17/17 18:01; Admin Dose 3,000 UNITS; Start 01/31/17 at 17:00 Aspirin (Ecotrin) 325 mg DAILY PO Last administered on 02/17/17 09:22; Admin Dose 325 MG; Start 01/31/17 at 09:00 Diltiazem HCl (Cardizem Iv) 5 mg Q4 PRN IV HR>110 Hold SBP<100 Last administered on 02/13/17 21:51; Admin Dose 5 MG; Start 01/30/17 at 20:30 IV Flush (NS 10 ml) 10 ml PRN PRN IV FLUSH LINE; Start 01/31/17 at 17:30 Nitroglycerin (Nitroglycerin (Sl Tab) 0.4 Mg) 1 tab Q5M PRN SL ANGINA; Start at 14:30 Ondansetron HCl (Zofran Tab) 4 mg Q6H PRN PO NAUSEA AND/OR VOMITING; Start 11/09 at 14:30 Diphenhydramine HCl (Benadryl) 50 mg Q6H PRN PO ALLERGIC REACTION Last administered on 02/16/17 23:04; Admin Dose 50 MG; Start 02/02/17 at 22:30 Isosorbide Dinitrate (Isordil) 10 mg TID PO Last administered on 02/17/17 20: 37; Admin Dose 10 MG; Start 02/03/17 at 15:30 Al Hydrox/Mg Hydrox/Simethicone (Mag-Al Plus) 30 ml Q6H PRN PO GASTROINTESTINAL UPSET; Start 02/03/17 at 15:30 Metoprolol Tartrate (Lopressor) 25 mg BID PO Last administered on 02/09/17 21: 03; Admin Dose 25 MG; Start 02/05/17 at 16:00; Status Future Hold Heparin Sodium (Porcine) (Heparin (5000 Units/0.5 ml)) 5,000 unit BID SC Last administered on 02/17/17 20:37; Admin Dose 5,000 UNIT; Start 02/05/17 at 16:00 Amiodarone HCl (Cordarone) 200 mg DAILY PO Last administered on 02/17/17 09:24 ; Admin Dose 200 MG; Start 02/08/17 at 09:00 Methylprednisolone Sodium Succinate (Solu-Medrol) 20 mg DAILY IV Last administered on 02/17/17 09:24; Admin Dose 20 MG; Start 02/13/17 at 09:00 Oxycodone/ Acetaminophen (Percocet (5/ 325)) 1 tab Q4H PRN PO PAIN Last administered on 02/16/17 00:14; Admin Dose 1 TAB; Start 02/13/17 at 21:00 Benazepril HCl (Lotensin) 30 mg BID PO Last administered on 02/17/17 20:38; Admin Dose 30 MG; Start 02/16/17 at 09:00 Diltiazem HCl 60 mg 60 mg Q8 PO ; Start 02/17/17 at 22:00 Linezolid (Zyvox 600mg/D5W (Pmx)) 300 ml @ 300 mls/hr Q12 IVPB Last administered on 02/17/17t 16:42; Admin Dose 300 MLS/HR; Start 02/17/17 at 17:00 CLAUDIA MITCHELL MD Feb 17, 2017 21:06
[2017-02-17] MEDS ORDERED: DIPHENHYDRAMINE 25 MG CAP PO PRN (21:30)
[2017-02-17] MEDS ORDERED: NA POLYST SULFON 15 GM/60 ML BTL PO ONE (21:30)
[2017-02-17] MEDS: DILTIAZEM 60 MG TAB PO SCH (21:41)
[2017-02-17] MEDS ORDERED: DIPHENHYDRAMINE 50 MG CAP PO PRN (22:30)
[2017-02-18] VITALS (12 sets, daily range): BP systolic 146–169; BP diastolic 59–77; PULSE 71–93; RESP 18–20
[2017-02-18] MEDS: PANTOPRAZOLE (EC) 40 MG TAB PO SCH (05:45)
[2017-02-18] MEDS: DILTIAZEM 60 MG TAB PO SCH ×3 (05:45→21:16)
[2017-02-18] MEDS: ALBUTEROL/IPRATROPIUM (NEB) 3 ML AMP HHN SCH ×3 (08:00→20:01)
[2017-02-18] MEDS: LINEZOLID 600 MG/D5W (PMX) 300 ML IVPB SCH (08:43)
[2017-02-18] MEDS: ISOSORBIDE DINITRATE 10 MG TAB PO SCH ×3 (08:43→21:16)
[2017-02-18] MEDS: AMIODARONE 200 MG TAB PO SCH (08:44)
[2017-02-18] MEDS: ASPIRIN (EC) 325 MG TAB PO SCH (08:44)
[2017-02-18] MEDS: CALCIUM CARBONATE 500 MG CHEW TAB PO SCH ×3 (08:44→17:45)
[2017-02-18] MEDS: BENAZEPRIL 20 MG TAB PO SCH ×2 (08:45→21:16)
[2017-02-18] MEDS: METHYLPREDNISOLONE 40 MG INJ IV SCH (08:46)
[2017-02-18] MEDS: HEPARIN 5,000 UNIT/0.5 ML SYG SC SCH ×2 (08:47→21:15)
--- NOTE | 2017-02-18 09:21 | CONS ---
Date/Time of Note Date/Time of Note DATE: 02/18/17 TIME: 09:20 Assessment/Plan Assessment/Plan Additional Assessment/Plan 1. Atrial fibrillation, not currently on systemic anticoagulation but on asa, rate controlled and currently in SR/SB-Had recurrent AF/AFL 02/16 to 150 and now back in SR - in sinus now, no Class I indication for pacer 2. Shortness of breath, assess for congestive heart failure- improved with therpy 3. Diastolic dysfunction by 2D echo this admission.-CHF by cxr 02/01- better fluid status now 4. Hypertension- better RX 5. Possible chronic obstructive pulmonary disease. 6. Possible bronchitis. 7. Possible pneumonia- on anti-Bx 8. Dyslipidemia. 9. Chronic kidney disease- renal team follows 10. Anemia. 11. Leukocytosis 12. Chest pain-improved/negative troponin x 2/NO changes on ECG 14. Bradycardia-to 30's still recurrent-? 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-no recurrent twan at this time of low dose dilt/amio Consultation Date/Type/Reason Admit Date/Time Jan 31, 2017 at 15:05 Type of Consultation: renal Referring Provider: LOREN ROSE MD 24 HR Interval Summary Free Text/Dictation NO acute change - no tachy-twan episodes now - in sinus ROS: No fever, no chills, no nausea, no vomiting, no diarrhea/constipation No recent weight changes No chest pain, no PND, no orthopnea No dizziness, blurred vision No thirst, no heat or cold intolerance Exam/Review of Systems Vital Signs Vitals Vital Signs Date Time Temp Pulse Resp B/P Pulse Ox O2 Delivery O2 Flow Rate FiO2 02/18/17 08:21 76 02/18/17 07:35 98.3 18 160/73 98 02/17/17 22:00 21 02/17/17 05:00 Room Air Intake and Output 02/17/17 02/17/17 02/18/17 15:00 23:00 07:00 Intake Total 1050 ml 300 ml Balance 1050 ml 300 ml Exam General: WN/WD/NAD, AOx 2-3 HEENT: Unicetric/atraumatic/EOMI (follow commands) NECK: JVD elevated, no thyromegaly Lymph: no lymphadenopathy HEART: regular with no S3, II/ systolic murmur at apex LUNGS: Coarse sounds ABD: soft, NT, ND, +BS : Intact Neuro: non focal SKIN: chronic changes EXT: trace edema Results Result Diagram: 02/17/17 0610 02/17/17 0610 Medications Medications Current Medications Acetaminophen (Tylenol Tab) 650 mg Q4H PRN PO PAIN AND OR ELEVATED TEMP Last administered on 01/29/17 18:54; Admin Dose 650 MG; Start 01/29/17 at 05:30 Guaifenesin/ Codeine Phosphate (Robitussin Ac Liquid Cup) 10 ml Q4H PRN PO COUGH Last administered on 02/07/17 17:58; Admin Dose 10 ML; Start 01/29/17 at 05:30 Atorvastatin Calcium (Lipitor) 10 mg HS PO Last administered on 02/17/17 20:37 ; Admin Dose 10 MG; Start 01/29/17 at 21:00 Pantoprazole (Protonix Tab) 40 mg DAILY@06 PO Last administered on 02/18/17 05 :45; Admin Dose 40 MG; Start 01/29/17 at 16:00 Aspirin (Ecotrin) 325 mg DAILY PO Last administered on 02/18/17 08:44; Admin Dose 325 MG; Start 01/31/17 at 09:00 Diltiazem HCl (Cardizem Iv) 5 mg Q4 PRN IV HR>110 Hold SBP<100 Last administered on 02/13/17 21:51; Admin Dose 5 MG; Start 01/30/17 at 20:30 IV Flush (NS 10 ml) 10 ml PRN PRN IV FLUSH LINE; Start 01/31/17 at 17:30 Nitroglycerin (Nitroglycerin (Sl Tab) 0.4 Mg) 1 tab Q5M PRN SL ANGINA; Start at 14:30 Ondansetron HCl (Zofran Tab) 4 mg Q6H PRN PO NAUSEA AND/OR VOMITING; Start 11/09 at 14:30 Isosorbide Dinitrate (Isordil) 10 mg TID PO Last administered on 02/18/17 08: 43; Admin Dose 10 MG; Start 02/03/17 at 15:30 Al Hydrox/Mg Hydrox/Simethicone (Mag-Al Plus) 30 ml Q6H PRN PO GASTROINTESTINAL UPSET; Start 02/03/17 at 15:30 Metoprolol Tartrate (Lopressor) 25 mg BID PO Last administered on 02/09/17 21: 03; Admin Dose 25 MG; Start 02/05/17 at 16:00; Status Future Hold Heparin Sodium (Porcine) (Heparin (5000 Units/0.5 ml)) 5,000 unit BID SC Last administered on 02/17/17 20:37; Admin Dose 5,000 UNIT; Start 02/05/17 at 16:00 Amiodarone HCl (Cordarone) 200 mg DAILY PO Last administered on 02/18/17 08:44 ; Admin Dose 200 MG; Start 02/08/17 at 09:00 Methylprednisolone Sodium Succinate (Solu-Medrol) 20 mg DAILY IV Last administered on 02/18/17 08:46; Admin Dose 20 MG; Start 02/13/17 at 09:00 Oxycodone/ Acetaminophen (Percocet (5/ 325)) 1 tab Q4H PRN PO PAIN Last administered on 02/16/17 00:14; Admin Dose 1 TAB; Start 02/13/17 at 21:00 Benazepril HCl (Lotensin) 30 mg BID PO Last administered on 02/18/17 08:45; Admin Dose 30 MG; Start 02/16/17 at 09:00 Diltiazem HCl 60 mg 60 mg Q8 PO Last administered on 02/18/17 05:45; Admin Dose 60 MG; Start 02/17/17 at 22:00 Linezolid (Zyvox 600mg/D5W (Pmx)) 300 ml @ 300 mls/hr Q12 IVPB Last administered on 02/18/17 08:43; Admin Dose 300 MLS/HR; Start 02/17/17 at 17:00 Epoetin Larry (Epogen (Non Esrd/Non Oncology)) 1,000 units MoWeFr@17 SC ; Start 02/19/17 at 17:00 Diphenhydramine HCl (Benadryl) 25 mg Q6H PRN PO ALLERGIC REACTION; Start at 21:30 MICHELLE COLEMAN MD Feb 18, 2017 09:21
[2017-02-18 10:15] LABS: ADD SCAN DIFF NO
[2017-02-18 10:17] LABS: ABNORMAL IP MESSAGE 1; BASOPHILS % 0.1 % (0.0-2.0); EOSINOPHILS % 0.1 % (0.0-7.0); HEMATOCRIT 29.9 % (37.0-47.0); HEMOGLOBIN 9.6 g/dl (12.0-16.0); LYMPHOCYTES # 0.6 10^3/ul (0.8-2.9); LYMPHOCYTES % 5.1 % (15.0-51.0); MEAN CORPUSCULAR HEMOGLOBIN 31.6 pg (29.0-33.0); MEAN CORPUSCULAR HGB CONC 32.1 g/dl (32.0-37.0); MEAN CORPUSCULAR VOLUME 98.4 fl (82.0-101.0); MEAN PLATELET VOLUME 10.1 fl (7.4-10.4); MONOCYTE # 0.7 10^3/ul (0.3-0.9); MONOCYTES % 6.8 % (0.0-11.0); NEUTROPHIL # 9.4 10^3/ul (1.6-7.5); NEUTROPHILS % 87.4 % (39.0-77.0); PLATELET COUNT 164 10^3/UL (140-415); RED BLOOD COUNT 3.04 10^6/ul (4.20-5.40); RED CELL DISTRIBUTION WIDTH 19.2 % (11.5-14.5); WHITE BLOOD COUNT 10.8 10^3/ul (4.8-10.8)
[2017-02-18 10:30] LABS: POTASSIUM 4.4 mmol/L (3.5-5.1)
[2017-02-18 10:33] LABS: CALCIUM 7.9 mg/dl (8.4-10.2); CREATININE 1.84 mg/dl (0.44-1.00)
[2017-02-18] MEDS ORDERED: FOSFOMYCIN 3 GM PACKET PO SCH (13:30)
--- NOTE | 2017-02-18 18:21 | PN ---
Date/Time of Note Date/Time of Note DATE: 02/18/17 TIME: 18:19 Assessment/Plan VTE Prophylaxis VTE Prophylaxis Intervention: SCD's Lines/Catheters IV [facility] Urinary Cath still in place: No Assessment/Plan Chief Complaint/Hosp Course ASSESSMENT AND PLAN: - VRE UTI, status post fosfomycin, continue to monitor renal function , contact isolation. - Recurrent atrial fibrillation with RVR, continue Cardizem and amiodarone, continue telemetry monitoring, follow-up cardiology recommendations. - Bradycardia, patient is undergoing evaluation for pacemaker, continue to follow-up cardiology recommendation, continue telemetry monitoring. - Possible bronchitis versus early pneumonia. s/p treatment., continue breathing treatments. - Ecoli urinary tract infection, s/p treatment. - Diastolic dysfunction congestive heart failure. Dr. Iraheta is following and cardiology consultation, continue gentle diuresis. - Atrial fibrillation at controlled rate. Continue aspirin and metoprolol. - Hypertension. Continue metoprolol and benazepril. - Aortic stenosis. - Hyperlipidemia. Continue statin. - Possible chronic obstructive pulmonary disease exacerbation. Continue patient on breathing treatments, steroids taper. - Stage IV chronic kidney disease. Kidney ultrasound is consistent with chronic kidney disease. Dr. Gordon is following in nephrology consultation. - Gout. Continue allopurinol. - Anemia of chronic disease, continue Epogen. Continue Lovenox for deep venous thrombosis prophylaxis and Protonix for peptic ulcer disease prophylaxis. Further recommendations based on clinical course. Plan of care discussed with Dr. Olivier. Problems: Subjective 24 Hr Interval Summary Free Text/Dictation Patient denies any shortness of breath, no episodes of atrial fibrillation with rapid ventricular response. Exam/Review of Systems Vital Signs Vitals Vital Signs Date Time Temp Pulse Resp B/P Pulse Ox O2 Delivery O2 Flow Rate FiO2 02/18/17 16:14 78 02/18/17 15:50 98.0 19 146/67 92 02/18/17 13:38 21 02/17/17 05:00 Room Air Intake and Output 02/17/17 02/17/17 02/18/17 15:00 23:00 07:00 Intake Total 1050 ml 300 ml Balance 1050 ml 300 ml Exam Constitutional: alert, oriented Psych: no complaints Head: atraumatic, normocephalic Eyes: nl conjunctiva Neck: non-tender, supple Respiratory: other (Diminished at the bases) Cardiovascular: other (Irregularly irregular rhythm) Gastrointestinal: non-tender, soft Musculoskeletal: nl extremities to inspection, nl gait and stance Extremities: normal pulses 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: PLANTING MATERIAL CARRIER II-XII intact Results Result Diagram: 02/18/17 0940 02/18/17 0940 Results 24 hrs Laboratory Tests Test 02/18/17 09:40 White Blood Count 10.8 # Red Blood Count 3.04 L Hemoglobin 9.6 L Hematocrit 29.9 L Mean Corpuscular Volume 98.4 Mean Corpuscular Hemoglobin 31.6 Mean Corpuscular Hemoglobin Concent 32.1 Red Cell Distribution Width 19.2 H Platelet Count 164 Mean Platelet Volume 10.1 Neutrophils % 87.4 H Lymphocytes % 5.1 L Monocytes % 6.8 Eosinophils % 0.1 Basophils % 0.1 Nucleated Red Blood Cells % 0.0 Neutrophils # 9.4 H Lymphocytes # 0.6 L Monocytes # 0.7 Eosinophils # 0.0 Basophils # 0.0 Nucleated Red Blood Cells # 0.0 Sodium Level 136 Potassium Level 4.4 Chloride Level 112 H Carbon Dioxide Level 19 L Anion Gap 9 # Blood Urea Nitrogen 63 H Creatinine 1.84 H Glucose Level 101 Calcium Level 7.9 L Medications Medications Current Medications Acetaminophen (Tylenol Tab) 650 mg Q4H PRN PO PAIN AND OR ELEVATED TEMP Last administered on 01/29/17 18:54; Admin Dose 650 MG; Start 01/29/17 at 05:30 Guaifenesin/ Codeine Phosphate (Robitussin Ac Liquid Cup) 10 ml Q4H PRN PO COUGH Last administered on 02/07/17 17:58; Admin Dose 10 ML; Start 01/29/17 at 05:30 Atorvastatin Calcium (Lipitor) 10 mg HS PO Last administered on 02/17/17 20:37 ; Admin Dose 10 MG; Start 01/29/17 at 21:00 Pantoprazole (Protonix Tab) 40 mg DAILY@06 PO Last administered on 02/18/17 05 :45; Admin Dose 40 MG; Start 01/29/17 at 16:00 Aspirin (Ecotrin) 325 mg DAILY PO Last administered on 02/18/17 08:44; Admin Dose 325 MG; Start 01/31/17 at 09:00 Diltiazem HCl (Cardizem Iv) 5 mg Q4 PRN IV HR>110 Hold SBP<100 Last administered on 02/13/17 21:51; Admin Dose 5 MG; Start 01/30/17 at 20:30 IV Flush (NS 10 ml) 10 ml PRN PRN IV FLUSH LINE; Start 01/31/17 at 17:30 Nitroglycerin (Nitroglycerin (Sl Tab) 0.4 Mg) 1 tab Q5M PRN SL ANGINA; Start at 14:30 Ondansetron HCl (Zofran Tab) 4 mg Q6H PRN PO NAUSEA AND/OR VOMITING; Start 11/09 at 14:30 Isosorbide Dinitrate (Isordil) 10 mg TID PO Last administered on 02/18/17 12: 09; Admin Dose 10 MG; Start 02/03/17 at 15:30 Al Hydrox/Mg Hydrox/Simethicone (Mag-Al Plus) 30 ml Q6H PRN PO GASTROINTESTINAL UPSET; Start 02/03/17 at 15:30 Metoprolol Tartrate (Lopressor) 25 mg BID PO Last administered on 02/09/17 21: 03; Admin Dose 25 MG; Start 02/05/17 at 16:00; Status Future Hold Heparin Sodium (Porcine) (Heparin (5000 Units/0.5 ml)) 5,000 unit BID SC Last administered on 02/17/17 20:37; Admin Dose 5,000 UNIT; Start 02/05/17 at 16:00 Amiodarone HCl (Cordarone) 200 mg DAILY PO Last administered on 02/18/17 08:44 ; Admin Dose 200 MG; Start 02/08/17 at 09:00 Methylprednisolone Sodium Succinate (Solu-Medrol) 20 mg DAILY IV Last administered on 02/18/17 08:46; Admin Dose 20 MG; Start 02/13/17 at 09:00 Oxycodone/ Acetaminophen (Percocet (5/ 325)) 1 tab Q4H PRN PO PAIN Last administered on 02/16/17 00:14; Admin Dose 1 TAB; Start 02/13/17 at 21:00 Benazepril HCl (Lotensin) 30 mg BID PO Last administered on 02/18/17 08:45; Admin Dose 30 MG; Start 02/16/17 at 09:00 Diltiazem HCl (Cardizem) 60 mg Q8 PO Last administered on 02/18/17t 15:05; Admin Dose 60 MG; Start 02/17/17 at 22:00 Epoetin Larry (Epogen (Non Esrd/Non Oncology)) 1,000 units MoWeFr@17 SC ; Start 02/19/17 at 17:00 Diphenhydramine HCl (Benadryl) 25 mg Q6H PRN PO ALLERGIC REACTION; Start at 21:30 EDWAR VARGAS Feb 18, 2017 18:21
[2017-02-18] MEDS: ATORVASTATIN 10 MG TAB PO SCH (21:15)
--- NOTE | 2017-02-18 21:55 | CONS ---
Date/Time of Note Date/Time of Note DATE: 02/18/17 TIME: 21:51 Assessment/Plan Assessment/Plan Chief Complaint/Hosp Course multiple problems Renal coughlin stable High BUN should gradually improve Problems: Additional Assessment/Plan Pt is ready for discharge Consultation Date/Type/Reason Admit Date/Time Jan 31, 2017 at 15:05 Initial Consult Date Pt continues to improve Type of Consultation: renal Referring Provider: LOREN ROSE MD 24 HR Interval Summary Free Text/Dictation Pt getting RT (CXR is neg), say it helps her. Exam/Review of Systems Vital Signs Vitals Vital Signs Date Time Temp Pulse Resp B/P Pulse Ox O2 Delivery O2 Flow Rate FiO2 02/18/17 20:55 76 02/18/17 20:02 20 98 21 02/18/17 20:00 98.0 169/72 02/17/17 05:00 Room Air Intake and Output 02/17/17 02/17/17 02/18/17 15:00 23:00 07:00 Intake Total 1050 ml 300 ml Balance 1050 ml 300 ml Exam Responds appropriately Constitutional: alert, oriented, well developed Psych: nl mood/affect, no complaints Head: atraumatic, normocephalic Eyes: EOMI, PERRL, nl conjunctiva, nl lids, nl sclera ENMT: nl external ears & nose, nl lips & teeth, nl nasal mucosa & septum Neck: non-tender, supple Respiratory: clear to auscultation, normal air movement Cardiovascular: nl pulses, regular rate and rhythm Gastrointestinal: nl liver, spleen, non-tender, soft Musculoskeletal: nl extremities to inspection, nl gait and stance Extremities: normal pulses 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: HARVESTER OPERATOR II-XII intact, nl mental status, nl speech, nl strength Skin: nl turgor, No rash or lesions Lymph: nl lymph nodes Additional Comments Rpt UA is almost neg Results Renal fn has improved further Result Diagram: 02/18/1740 02/18/17 0940 Results 24 hrs Laboratory Tests Test 02/18/17 09:40 White Blood Count 10.8 # Red Blood Count 3.04 L Hemoglobin 9.6 L Hematocrit 29.9 L Mean Corpuscular Volume 98.4 Mean Corpuscular Hemoglobin 31.6 Mean Corpuscular Hemoglobin Concent 32.1 Red Cell Distribution Width 19.2 H Platelet Count 164 Mean Platelet Volume 10.1 Neutrophils % 87.4 H Lymphocytes % 5.1 L Monocytes % 6.8 Eosinophils % 0.1 Basophils % 0.1 Nucleated Red Blood Cells % 0.0 Neutrophils # 9.4 H Lymphocytes # 0.6 L Monocytes # 0.7 Eosinophils # 0.0 Basophils # 0.0 Nucleated Red Blood Cells # 0.0 Sodium Level 136 Potassium Level 4.4 Chloride Level 112 H Carbon Dioxide Level 19 L Anion Gap 9 # Blood Urea Nitrogen 63 H Creatinine 1.84 H Glucose Level 101 Calcium Level 7.9 L Medications Medications Current Medications Acetaminophen (Tylenol Tab) 650 mg Q4H PRN PO PAIN AND OR ELEVATED TEMP Last administered on 01/29/17 18:54; Admin Dose 650 MG; Start 01/29/17 at 05:30 Guaifenesin/ Codeine Phosphate (Robitussin Ac Liquid Cup) 10 ml Q4H PRN PO COUGH Last administered on 02/07/17 17:58; Admin Dose 10 ML; Start 01/29/17 at 05:30 Atorvastatin Calcium (Lipitor) 10 mg HS PO Last administered on 02/18/17 21:15 ; Admin Dose 10 MG; Start 01/29/17 at 21:00 Pantoprazole (Protonix Tab) 40 mg DAILY@06 PO Last administered on 02/18/17 05 :45; Admin Dose 40 MG; Start 01/29/17 at 16:00 Aspirin (Ecotrin) 325 mg DAILY PO Last administered on 02/18/17 08:44; Admin Dose 325 MG; Start 01/31/17 at 09:00 Diltiazem HCl (Cardizem Iv) 5 mg Q4 PRN IV HR>110 Hold SBP<100 Last administered on 02/13/17 21:51; Admin Dose 5 MG; Start 01/30/17 at 20:30 IV Flush (NS 10 ml) 10 ml PRN PRN IV FLUSH LINE; Start 01/31/17 at 17:30 Nitroglycerin (Nitroglycerin (Sl Tab) 0.4 Mg) 1 tab Q5M PRN SL ANGINA; Start at 14:30 Ondansetron HCl (Zofran Tab) 4 mg Q6H PRN PO NAUSEA AND/OR VOMITING; Start 11/09 at 14:30 Isosorbide Dinitrate (Isordil) 10 mg TID PO Last administered on 02/18/17 21: 16; Admin Dose 10 MG; Start 02/03/17 at 15:30 Al Hydrox/Mg Hydrox/Simethicone (Mag-Al Plus) 30 ml Q6H PRN PO GASTROINTESTINAL UPSET; Start 02/03/17 at 15:30 Metoprolol Tartrate (Lopressor) 25 mg BID PO Last administered on 02/09/17 21: 03; Admin Dose 25 MG; Start 02/05/17 at 16:00; Status Future Hold Heparin Sodium (Porcine) (Heparin (5000 Units/0.5 ml)) 5,000 unit BID SC Last administered on 02/18/17 21:15; Admin Dose 5,000 UNIT; Start 02/05/17 at 16:00 Amiodarone HCl (Cordarone) 200 mg DAILY PO Last administered on 02/18/17 08:44 ; Admin Dose 200 MG; Start 02/08/17 at 09:00 Methylprednisolone Sodium Succinate (Solu-Medrol) 20 mg DAILY IV Last administered on 02/18/17 08:46; Admin Dose 20 MG; Start 02/13/17 at 09:00 Oxycodone/ Acetaminophen (Percocet (5/ 325)) 1 tab Q4H PRN PO PAIN Last administered on 02/16/17 00:14; Admin Dose 1 TAB; Start 02/13/17 at 21:00 Benazepril HCl (Lotensin) 30 mg BID PO Last administered on 02/18/17 21:16; Admin Dose 30 MG; Start 02/16/17 at 09:00 Diltiazem HCl (Cardizem) 60 mg Q8 PO Last administered on 02/18/17 21:16; Admin Dose 60 MG; Start 02/17/17 at 22:00 Epoetin Larry (Epogen (Non Esrd/Non Oncology)) 1,000 units MoWeFr@17 SC ; Start 02/19/17 at 17:00 Diphenhydramine HCl (Benadryl) 25 mg Q6H PRN PO ALLERGIC REACTION; Start at 21:30 CLAUDIA MITCHELL MD Feb 18, 2017 21:55
[2017-02-19] VITALS (9 sets, daily range): BP systolic 129–145; BP diastolic 61–65; PULSE 66–73; RESP 18–19
[2017-02-19] MEDS: PANTOPRAZOLE (EC) 40 MG TAB PO SCH (06:27)
[2017-02-19] MEDS: DILTIAZEM 60 MG TAB PO SCH ×2 (06:27→12:34)
[2017-02-19 06:48] LABS: ADD SCAN DIFF NO
[2017-02-19 06:55] LABS: ABNORMAL IP MESSAGE 1; BASOPHILS % 0.1 % (0.0-2.0); HEMATOCRIT 30.7 % (37.0-47.0); HEMOGLOBIN 9.6 g/dl (12.0-16.0); LYMPHOCYTES # 0.6 10^3/ul (0.8-2.9); LYMPHOCYTES % 4.9 % (15.0-51.0); MEAN CORPUSCULAR HGB CONC 31.3 g/dl (32.0-37.0); MEAN PLATELET VOLUME 10.3 fl (7.4-10.4); MONOCYTE # 0.7 10^3/ul (0.3-0.9); NEUTROPHILS % 88.4 % (39.0-77.0); PLATELET COUNT 140 10^3/UL (140-415); RED CELL DISTRIBUTION WIDTH 19.6 % (11.5-14.5); WHITE BLOOD COUNT 11.3 10^3/ul (4.8-10.8)
[2017-02-19 07:18] LABS: POTASSIUM 4.9 mmol/L (3.5-5.1)
[2017-02-19 07:21] LABS: CREATININE 2.05 mg/dl (0.44-1.00)
[2017-02-19 07:22] LABS: CALCIUM 8.6 mg/dl (8.4-10.2)
[2017-02-19] MEDS: ASPIRIN (EC) 325 MG TAB PO SCH (08:23)
[2017-02-19] MEDS: CALCIUM CARBONATE 500 MG CHEW TAB PO SCH ×2 (08:23→12:33)
[2017-02-19] MEDS: HEPARIN 5,000 UNIT/0.5 ML SYG SC SCH (08:24)
[2017-02-19] MEDS: ISOSORBIDE DINITRATE 10 MG TAB PO SCH ×2 (08:24→12:34)
[2017-02-19] MEDS: BENAZEPRIL 20 MG TAB PO SCH (08:24)
[2017-02-19] MEDS: AMIODARONE 200 MG TAB PO SCH (08:24)
[2017-02-19] MEDS: METHYLPREDNISOLONE 40 MG INJ IV SCH (08:25)
[2017-02-19] MEDS: ALBUTEROL/IPRATROPIUM (NEB) 3 ML AMP HHN SCH ×2 (08:29→14:50)
--- NOTE | 2017-02-19 12:30 | PN ---
Date/Time of Note Date/Time of Note DATE: 02/19/17 TIME: 12:21 Assessment/Plan VTE Prophylaxis VTE Prophylaxis Intervention: SCD's Lines/Catheters IV [facility]ter Type (from [facility]): PICC Line Central line still needed: Yes Urinary Cath still in place: No Assessment/Plan Chief Complaint/Hosp Course ASSESSMENT AND PLAN: - VRE UTI, status posttreatment with fosfomycin. - Recurrent atrial fibrillation with RVR, continue Cardizem and amiodarone, continue telemetry monitoring, follow-up cardiology recommendations. - Bradycardia, patient is undergoing evaluation for pacemaker, continue to follow-up cardiology recommendation, continue telemetry monitoring. - Possible bronchitis versus early pneumonia. s/p treatment., continue breathing treatments. - Ecoli urinary tract infection, s/p treatment. - Diastolic dysfunction congestive heart failure. Dr. Iraheta is following and cardiology consultation, continue gentle diuresis. - Atrial fibrillation at controlled rate. Continue aspirin and metoprolol. - Hypertension. Continue metoprolol and benazepril. - Aortic stenosis. - Hyperlipidemia. Continue statin. - Possible chronic obstructive pulmonary disease exacerbation. Continue patient on breathing treatments, steroids taper. - Stage IV chronic kidney disease. Kidney ultrasound is consistent with chronic kidney disease. Dr. Gordon is following in nephrology consultation. - Gout. Continue allopurinol. - Anemia of chronic disease, continue Epogen. OK to transfer to [facility]. Continue Lovenox for deep venous thrombosis prophylaxis and Protonix for peptic ulcer disease prophylaxis. Further recommendations based on clinical course. Plan of care discussed with Dr. Olivier. Problems: Subjective 24 Hr Interval Summary Free Text/Dictation Patient patient denies shortness of breath, denies dysuria. Exam/Review of Systems Vital Signs Vitals Vital Signs Date Time Temp Pulse Resp B/P Pulse Ox O2 Delivery O2 Flow Rate FiO2 02/19/17 12:15 69 02/19/17 11:33 98.2 19 145/63 97 02/19/17 08:29 21 02/17/17 05:00 Room Air Intake and Output 02/18/17 02/18/17 02/19/17 15:00 23:00 07:00 Intake Total 650 ml 450 ml Balance 650 ml 450 ml Exam Constitutional: alert, oriented Psych: no complaints Head: atraumatic, normocephalic Eyes: nl conjunctiva Neck: non-tender, supple Respiratory: other (Diminished at the bases) Cardiovascular: other (Irregularly irregular rhythm) Gastrointestinal: non-tender, soft Musculoskeletal: nl extremities to inspection, nl gait and stance Extremities: normal pulses 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: POLE PEELING MACHINE OPERATOR II-XII intact Results Result Diagram: 02/19/17 0600 02/19/17 0600 Results 24 hrs Laboratory Tests Test 02/19/17 06:00 White Blood Count 11.3 H Red Blood Count 3.10 L Hemoglobin 9.6 L Hematocrit 30.7 L Mean Corpuscular Volume 99.0 Mean Corpuscular Hemoglobin 31.0 Mean Corpuscular Hemoglobin Concent 31.3 L Red Cell Distribution Width 19.6 H Platelet Count 140 Mean Platelet Volume 10.3 Neutrophils % 88.4 H Lymphocytes % 4.9 L Monocytes % 6.0 Eosinophils % 0.0 Basophils % 0.1 Nucleated Red Blood Cells % 0.0 Neutrophils # 10.0 H Lymphocytes # 0.6 L Monocytes # 0.7 Eosinophils # 0.0 Basophils # 0.0 Nucleated Red Blood Cells # 0.0 Sodium Level 138 Potassium Level 4.9 Chloride Level 111 H Carbon Dioxide Level 20 L Anion Gap 12 Blood Urea Nitrogen 68 H Creatinine 2.05 H Glucose Level 113 Calcium Level 8.6 Medications Medications Current Medications Acetaminophen (Tylenol Tab) 650 mg Q4H PRN PO PAIN AND OR ELEVATED TEMP Last administered on 01/29/17 18:54; Admin Dose 650 MG; Start 01/29/17 at 05:30 Guaifenesin/ Codeine Phosphate (Robitussin Ac Liquid Cup) 10 ml Q4H PRN PO COUGH Last administered on 02/07/17 17:58; Admin Dose 10 ML; Start 01/29/17 at 05:30 Atorvastatin Calcium (Lipitor) 10 mg HS PO Last administered on 02/18/17 21:15 ; Admin Dose 10 MG; Start 01/29/17 at 21:00 Pantoprazole (Protonix Tab) 40 mg DAILY@06 PO Last administered on 02/19/17 06 :27; Admin Dose 40 MG; Start 01/29/17 at 16:00 Aspirin (Ecotrin) 325 mg DAILY PO Last administered on 02/19/17 08:23; Admin Dose 325 MG; Start 01/31/17 at 09:00 Diltiazem HCl (Cardizem Iv) 5 mg Q4 PRN IV HR>110 Hold SBP<100 Last administered on 02/13/17 21:51; Admin Dose 5 MG; Start 01/30/17 at 20:30 IV Flush (NS 10 ml) 10 ml PRN PRN IV FLUSH LINE; Start 01/31/17 at 17:30 Nitroglycerin (Nitroglycerin (Sl Tab) 0.4 Mg) 1 tab Q5M PRN SL ANGINA; Start at 14:30 Ondansetron HCl (Zofran Tab) 4 mg Q6H PRN PO NAUSEA AND/OR VOMITING; Start 11/09 at 14:30 Isosorbide Dinitrate (Isordil) 10 mg TID PO Last administered on 02/19/17 08: 24; Admin Dose 10 MG; Start 02/03/17 at 15:30 Al Hydrox/Mg Hydrox/Simethicone (Mag-Al Plus) 30 ml Q6H PRN PO GASTROINTESTINAL UPSET; Start 02/03/17 at 15:30 Metoprolol Tartrate (Lopressor) 25 mg BID PO Last administered on 02/09/17 21: 03; Admin Dose 25 MG; Start 02/05/17 at 16:00; Status Future Hold Heparin Sodium (Porcine) (Heparin (5000 Units/0.5 ml)) 5,000 unit BID SC Last administered on 02/18/17 21:15; Admin Dose 5,000 UNIT; Start 02/05/17 at 16:00 Amiodarone HCl (Cordarone) 200 mg DAILY PO Last administered on 02/19/17 08:24 ; Admin Dose 200 MG; Start 02/08/17 at 09:00 Methylprednisolone Sodium Succinate (Solu-Medrol) 20 mg DAILY IV Last administered on 02/19/17 08:25; Admin Dose 20 MG; Start 02/13/17 at 09:00 Oxycodone/ Acetaminophen (Percocet (5/ 325)) 1 tab Q4H PRN PO PAIN Last administered on 02/16/17 00:14; Admin Dose 1 TAB; Start 02/13/17 at 21:00 Benazepril HCl (Lotensin) 30 mg BID PO Last administered on 02/19/17 08:24; Admin Dose 30 MG; Start 02/16/17 at 09:00 Diltiazem HCl (Cardizem) 60 mg Q8 PO Last administered on 02/19/17t 06:27; Admin Dose 60 MG; Start 02/17/17 at 22:00 Epoetin Larry (Epogen (Non Esrd/Non Oncology)) 1,000 units MoWeFr@17 SC ; Start 02/19/17 at 17:00 Diphenhydramine HCl (Benadryl) 25 mg Q6H PRN PO ALLERGIC REACTION; Start at 21:30 EDWAR VARGAS Feb 19, 2017 12:30
--- NOTE | 2017-02-19 13:55 | CONS ---
Date/Time of Note Date/Time of Note DATE: 02/19/17 TIME: 13:50 Assessment/Plan Assessment/Plan Chief Complaint/Hosp Course IMPRESSION: 1. Atrial fibrillation, not currently on systemic anticoagulation but on asa, rate controlled and currently in SR/SB-Had recurrent AF/AFL 02/16 to 150 and now back in SR 2. Shortness of breath, assess for congestive heart failure. 3. Diastolic dysfunction by 2D echo this admission.-CHF by cxr 02/01 4. Hypertension. 5. Possible chronic obstructive pulmonary disease. 6. Possible bronchitis. 7. Possible pneumonia. 8. Dyslipidemia. 9. Chronic kidney disease. 10. Anemia. 11. Leukocytosis 12. Chest pain-improved/negative troponin x 2/NO changes on ECG 14. Bradycardia-to 30's still recurrent-? 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 Will continue to follow -Follow volume status closely -awaiting placement Problems: Consultation Date/Type/Reason Admit Date/Time Jan 31, 2017 at 15:05 Initial Consult Date 01/30/2017 Type of Consultation: Cardiology Reason for Consultation PAF Referring Provider: LOREN ROSE MD Exam/Review of Systems Vital Signs Vitals Vital Signs Date Time Temp Pulse Resp B/P Pulse Ox O2 Delivery O2 Flow Rate FiO2 02/19/17 12:15 69 02/19/17 11:33 98.2 19 145/63 97 02/19/17 08:29 21 02/17/17 05:00 Room Air Intake and Output 02/18/17 02/18/17 02/19/17 15:00 23:00 07:00 Intake Total 650 ml 450 ml Balance 650 ml 450 ml Exam Review of Systems: CONSTITUTIONAL: No fevers, chills. PULMONARY: No sob CARDIOVASCULAR: No chest pain/palpitations GASTROINTESTINAL: No nausea/vomiting. GENITOURINARY: No hematuria/dysuria. MUSCULOSKELETAL: No myagias/arthalgias. PSYCHIATRIC: The patient denies depression. NEUROLOGIC: No weakness Constitutional: alert, oriented Psych: no complaints Head: normocephalic ENMT: mucosa pink and moist Neck: jvd (9 cm water), supple Respiratory: diminished breath sounds (at bases/B) Cardiovascular: regular rate and rhythm Gastrointestinal: non-tender, soft Musculoskeletal: muscle tone Extremities: edema (none) 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: other (No focal deficits) Results Result Diagram: 02/19/17 0600 02/19/17 0600 Results 24 hrs Laboratory Tests Test 02/19/17 06:00 White Blood Count 11.3 H Red Blood Count 3.10 L Hemoglobin 9.6 L Hematocrit 30.7 L Mean Corpuscular Volume 99.0 Mean Corpuscular Hemoglobin 31.0 Mean Corpuscular Hemoglobin Concent 31.3 L Red Cell Distribution Width 19.6 H Platelet Count 140 Mean Platelet Volume 10.3 Neutrophils % 88.4 H Lymphocytes % 4.9 L Monocytes % 6.0 Eosinophils % 0.0 Basophils % 0.1 Nucleated Red Blood Cells % 0.0 Neutrophils # 10.0 H Lymphocytes # 0.6 L Monocytes # 0.7 Eosinophils # 0.0 Basophils # 0.0 Nucleated Red Blood Cells # 0.0 Sodium Level 138 Potassium Level 4.9 Chloride Level 111 H Carbon Dioxide Level 20 L Anion Gap 12 Blood Urea Nitrogen 68 H Creatinine 2.05 H Glucose Level 113 Calcium Level 8.6 Medications Medications Current Medications Acetaminophen (Tylenol Tab) 650 mg Q4H PRN PO PAIN AND OR ELEVATED TEMP Last administered on 01/29/17 18:54; Admin Dose 650 MG; Start 01/29/17 at 05:30 Guaifenesin/ Codeine Phosphate (Robitussin Ac Liquid Cup) 10 ml Q4H PRN PO COUGH Last administered on 02/07/17 17:58; Admin Dose 10 ML; Start 01/29/17 at 05:30 Atorvastatin Calcium (Lipitor) 10 mg HS PO Last administered on 02/18/17 21:15 ; Admin Dose 10 MG; Start 01/29/17 at 21:00 Pantoprazole (Protonix Tab) 40 mg DAILY@06 PO Last administered on 02/19/17 06 :27; Admin Dose 40 MG; Start 01/29/17 at 16:00 Aspirin (Ecotrin) 325 mg DAILY PO Last administered on 02/19/17 08:23; Admin Dose 325 MG; Start 01/31/17 at 09:00 Diltiazem HCl (Cardizem Iv) 5 mg Q4 PRN IV HR>110 Hold SBP<100 Last administered on 02/13/17 21:51; Admin Dose 5 MG; Start 01/30/17 at 20:30 IV Flush (NS 10 ml) 10 ml PRN PRN IV FLUSH LINE; Start 01/31/17 at 17:30 Nitroglycerin (Nitroglycerin (Sl Tab) 0.4 Mg) 1 tab Q5M PRN SL ANGINA; Start at 14:30 Ondansetron HCl (Zofran Tab) 4 mg Q6H PRN PO NAUSEA AND/OR VOMITING; Start 11/09 at 14:30 Isosorbide Dinitrate (Isordil) 10 mg TID PO Last administered on 02/19/17 12: 34; Admin Dose 10 MG; Start 02/03/17 at 15:30 Al Hydrox/Mg Hydrox/Simethicone (Mag-Al Plus) 30 ml Q6H PRN PO GASTROINTESTINAL UPSET; Start 02/03/17 at 15:30 Metoprolol Tartrate (Lopressor) 25 mg BID PO Last administered on 02/09/17 21: 03; Admin Dose 25 MG; Start 02/05/17 at 16:00; Status Future Hold Heparin Sodium (Porcine) (Heparin (5000 Units/0.5 ml)) 5,000 unit BID SC Last administered on 02/18/17 21:15; Admin Dose 5,000 UNIT; Start 02/05/17 at 16:00 Amiodarone HCl (Cordarone) 200 mg DAILY PO Last administered on 02/19/17 08:24 ; Admin Dose 200 MG; Start 02/08/17 at 09:00 Methylprednisolone Sodium Succinate (Solu-Medrol) 20 mg DAILY IV Last administered on 02/19/17 08:25; Admin Dose 20 MG; Start 02/13/17 at 09:00 Oxycodone/ Acetaminophen (Percocet (5/ 325)) 1 tab Q4H PRN PO PAIN Last administered on 02/16/17 00:14; Admin Dose 1 TAB; Start 02/13/17 at 21:00 Benazepril HCl (Lotensin) 30 mg BID PO Last administered on 02/19/17 08:24; Admin Dose 30 MG; Start 02/16/17 at 09:00 Diltiazem HCl (Cardizem) 60 mg Q8 PO Last administered on 02/19/17t 12:34; Admin Dose 60 MG; Start 02/17/17 at 22:00 Epoetin Larry (Epogen (Non Esrd/Non Oncology)) 1,000 units MoWeFr@17 SC ; Start 02/19/17 at 17:00 Diphenhydramine HCl (Benadryl) 25 mg Q6H PRN PO ALLERGIC REACTION; Start at 21:30 ALVINA GARCIA Feb 19, 2017 13:55
[2017-02-19] MEDS ORDERED: EPOETIN 3000 UNITS/ML (NON ESRD/NON ONCOLOGY) SC SCH (17:00)
--- NOTE | 2017-02-19 17:12 | CONS ---
Date/Time of Note Date/Time of Note DATE: 02/19/17 TIME: 17:12 Consultation Date/Type/Reason Admit Date/Time Jan 31, 2017 at 15:05 Type of Consultation: Renal Referring Provider: LOREN ROSE MD Exam/Review of Systems Vital Signs Vitals Vital Signs Date Time Temp Pulse Resp B/P Pulse Ox O2 Delivery O2 Flow Rate FiO2 02/19/17 16:24 73 02/19/17 15:19 98.4 18 137/63 97 02/19/17 14:50 21 02/17/17 05:00 Room Air Intake and Output 02/18/17 02/18/17 02/19/17 15:00 23:00 07:00 Intake Total 650 ml 450 ml Balance 650 ml 450 ml Results Result Diagram: 02/19/17 0600 02/19/17 0600 Results 24 hrs Laboratory Tests Test 02/19/17 06:00 White Blood Count 11.3 H Red Blood Count 3.10 L Hemoglobin 9.6 L Hematocrit 30.7 L Mean Corpuscular Volume 99.0 Mean Corpuscular Hemoglobin 31.0 Mean Corpuscular Hemoglobin Concent 31.3 L Red Cell Distribution Width 19.6 H Platelet Count 140 Mean Platelet Volume 10.3 Neutrophils % 88.4 H Lymphocytes % 4.9 L Monocytes % 6.0 Eosinophils % 0.0 Basophils % 0.1 Nucleated Red Blood Cells % 0.0 Neutrophils # 10.0 H Lymphocytes # 0.6 L Monocytes # 0.7 Eosinophils # 0.0 Basophils # 0.0 Nucleated Red Blood Cells # 0.0 Sodium Level 138 Potassium Level 4.9 Chloride Level 111 H Carbon Dioxide Level 20 L Anion Gap 12 Blood Urea Nitrogen 68 H Creatinine 2.05 H Glucose Level 113 Calcium Level 8.6 Medications Medications Current Medications Acetaminophen (Tylenol Tab) 650 mg Q4H PRN PO PAIN AND OR ELEVATED TEMP Last administered on 01/29/17 18:54; Admin Dose 650 MG; Start 01/29/17 at 05:30 Guaifenesin/ Codeine Phosphate (Robitussin Ac Liquid Cup) 10 ml Q4H PRN PO COUGH Last administered on 02/07/17 17:58; Admin Dose 10 ML; Start 01/29/17 at 05:30 Atorvastatin Calcium (Lipitor) 10 mg HS PO Last administered on 02/18/17 21:15 ; Admin Dose 10 MG; Start 01/29/17 at 21:00 Pantoprazole (Protonix Tab) 40 mg DAILY@06 PO Last administered on 02/19/17 06 :27; Admin Dose 40 MG; Start 01/29/17 at 16:00 Aspirin (Ecotrin) 325 mg DAILY PO Last administered on 02/19/17 08:23; Admin Dose 325 MG; Start 01/31/17 at 09:00 Diltiazem HCl (Cardizem Iv) 5 mg Q4 PRN IV HR>110 Hold SBP<100 Last administered on 02/13/17 21:51; Admin Dose 5 MG; Start 01/30/17 at 20:30 IV Flush (NS 10 ml) 10 ml PRN PRN IV FLUSH LINE; Start 01/31/17 at 17:30 Nitroglycerin (Nitroglycerin (Sl Tab) 0.4 Mg) 1 tab Q5M PRN SL ANGINA; Start at 14:30 Ondansetron HCl (Zofran Tab) 4 mg Q6H PRN PO NAUSEA AND/OR VOMITING; Start 11/09 at 14:30 Isosorbide Dinitrate (Isordil) 10 mg TID PO Last administered on 02/19/17 12: 34; Admin Dose 10 MG; Start 02/03/17 at 15:30 Al Hydrox/Mg Hydrox/Simethicone (Mag-Al Plus) 30 ml Q6H PRN PO GASTROINTESTINAL UPSET; Start 02/03/17 at 15:30 Metoprolol Tartrate (Lopressor) 25 mg BID PO Last administered on 02/09/17 21: 03; Admin Dose 25 MG; Start 02/05/17 at 16:00; Status Future Hold Heparin Sodium (Porcine) (Heparin (5000 Units/0.5 ml)) 5,000 unit BID SC Last administered on 02/18/17 21:15; Admin Dose 5,000 UNIT; Start 02/05/17 at 16:00 Amiodarone HCl (Cordarone) 200 mg DAILY PO Last administered on 02/19/17 08:24 ; Admin Dose 200 MG; Start 02/08/17 at 09:00 Oxycodone/ Acetaminophen (Percocet (5/ 325)) 1 tab Q4H PRN PO PAIN Last administered on 02/16/17 00:14; Admin Dose 1 TAB; Start 02/13/17 at 21:00 Benazepril HCl (Lotensin) 30 mg BID PO Last administered on 02/19/17 08:24; Admin Dose 30 MG; Start 02/16/17 at 09:00 Diltiazem HCl (Cardizem) 60 mg Q8 PO Last administered on 02/19/17 12:34; Admin Dose 60 MG; Start 02/17/17 at 22:00 Epoetin Larry (Epogen (Non Esrd/Non Oncology)) 1,000 units MoWeFr@17 SC ; Start 02/19/17 at 17:00 Diphenhydramine HCl (Benadryl) 25 mg Q6H PRN PO ALLERGIC REACTION; Start at 21:30 ERIN KOWALSKI MD Feb 19, 2017 17:12
[2017-02-19] MEDS ORDERED: EPOETIN 2000 UNITS/1 ML INJ (ESRD) SC SCH ×2 (18:30)
--- NOTE | 2017-02-19 22:17 | DS ---
DATE OF ADMISSION: 01/31/2017 DATE OF DISCHARGE: 02/19/2017 FINAL DIAGNOSES: 1. Vancomycin resistant enterococcus urinary tract infection status post treatment. 2. Recurrent atrial fibrillation with rapid ventricular response. 3. Tachybrady syndrome. 4. Possible bronchitis versus early pneumonia on admission, status post treatment. 5. Escherichia coli urinary tract infection on admission, status post treatment. 6. Diastolic dysfunction congestive heart failure. 7. Hypertension. 8. Aortic stenosis. 9. Hyperlipidemia. 10. Chronic obstructive pulmonary disease with exacerbation, resolved. 11. Stage IV chronic kidney disease. 12. Gout. 13. Anemia of chronic disease. BRIEF HISTORY: The patient is a very pleasant 86-year-old Filipina female with past medical history positive for hypertension, hyperlipidemia, gout, iron deficiency anemia, and COPD. The patient pre sented to the emergency room due to complaints of shortness of breath and productive cough. The pat ient was started on Augmentin at the [facility] facility, however, with no improvement in sympt oms. The patient also spiked fever and was brought to the emergency room. HOSPITAL COURSE: The patient was noted to have E. coli urinary tract infection and was treated with antibiotics. The patient also had possible bronchitis and completed the treatment with antibiotics , was started on steroids and breathing treatments with gradual response to treatment. The patient also was evaluated by Dr. Iraheta in cardiology consultation since the patient with diastolic dysfun ction congestive heart failure. The patient also had atrial fibrillation with rapid ventricular res ponse and tachybrady syndrome. The patient's metoprolol was held. The patient was given Cardizem a nd amiodarone basically ____ the patient mostly was in sinus rj; however, had episodes of atrial fibrillation with rapid ventricular response and was monitored closely on telemetry. After the medi cation was optimized by cardiology, the patient remained in sinus rhythm. The patient was also eval uated by Dr. Lucia for possible pacemaker; however, decided that at that time to control the patien t with medications and continue to monitor on telemetry. The patient was also evaluated and followe d by Dr. Holloway and Dr. Gordon in nephrology consultation. The patient underwent a kidney ultrasound, which was consistent with chronic kidney disease. BUN and creatinine were closely monitored. The patient's baseline creatinine is around 2. The patient was also given Epogen for anemia of chronic disease after patient was being evaluated for anemia. Overall, condition is improved. The patient had some leukocytosis and urine culture came back with VRE UTI. The patient was started on Zyvox an d also received 1 dose of ____. The patient's condition seemed improve. The patient will be discha rged to [facility]. CONDITION ON DISCHARGE: Hemodynamically stable. ACTIVITY: As patient tolerates. DIET: 2 g sodium, low fat, low cholesterol diet. DISCHARGE MEDICATIONS: 1. Cardizem 60 mg p.o. q.8 hours. 2. Epogen 1000 units 3 times a week. 3. Benadryl 25 mg q.6 hours p.r.n. for itching. 4. Benazepril 30 mg p.o. b.i.d. 5. Percocet p.r.n. for pain. 6. Amiodarone 200 mg p.o. daily. 7. Imdur 10 mg p.o. t.i.d. 8. ____ q.6h. p.r.n. for GI upset. 9. Nitroglycerin p.r.n. for chest pain. 10. Zofran 4 mg p.r.n. for nausea, vomiting. 11. Aspirin 325 mg p.o. daily. 12. DuoNeb p.r.n. for shortness of breath. 13. Protonix 40 mg p.o. daily. 14. Tylenol 650 mg p.o. q.4h. p.r.n. for fever and pain. 15. Robitussin syrup 10 mL q.4h. p.r.n. for cough. Interdisciplinary care was established for this patient. Plan of care was discussed with Dr. Yo sawyer. Dictated By: EDWAR VARGAS [employer] for LOREN ROSE MD SR/NTS Conf#: [id number] DID#: [id number] CC: LOREN ROSE MD;*EndCC*
== END 2017-02-19 18:50 | DRG 291 ==
LOC: E/R 01:37 → MS2 03:02 → TEL 03:26 → OBSVTOIN 01-31 15:05
PROVIDERS: ADMIT Internal Medicine; ATTEND Internal Medicine
PROC: 02HV33Z Insertion of Infusion Device into Superior Vena Cava, Percutaneous Approach (ICD-10-PCS; principal; 2017-01-31)
DX: I13.0 Hypertensive heart and chronic kidney disease with heart failure and stage 1 through stage 4 chronic kidney disease, or unspecified chronic kidney disease (principal); J18.9 Pneumonia, unspecified organism; N18.4 Chronic kidney disease, stage 4 (severe); E87.2 Acidosis; J44.0 Chronic obstructive pulmonary disease with (acute) lower respiratory infection; I49.5 Sick sinus syndrome; N17.9 Acute kidney failure, unspecified; N39.0 Urinary tract infection, site not specified; E87.5 Hyperkalemia; I50.33 Acute on chronic diastolic (congestive) heart failure; J44.1 Chronic obstructive pulmonary disease with (acute) exacerbation; Z66 Do not resuscitate; E78.5 Hyperlipidemia, unspecified; M10.9 Gout, unspecified; B96.20 Unspecified Escherichia coli [E. coli] as the cause of diseases classified elsewhere; I48.91 Unspecified atrial fibrillation; I35.0 Nonrheumatic aortic (valve) stenosis; D63.8 Anemia in other chronic diseases classified elsewhere; J20.9 Acute bronchitis, unspecified; R07.9 Chest pain, unspecified; B95.2 Enterococcus as the cause of diseases classified elsewhere; Z16.21 Resistance to vancomycin
CPT/HCPCS: 36415; 36569; 71010; 76775; 76937; 80048; 80053; 80061; 81001; 81003; 82550; 82553; 82575; 83540; 83605; 83735; 83880; 84100; 84155; 84156; 84300; 84443; 84484; 85025; 85610; 85730; 87040; 87070; 87075; 87081; 87086; 93005; 93306; 94640; 94664; 97110; 97116; 97162; 97530; 99217; G0378; J1940; A4310; J0696; J0885; J0886; J1644; J1956; J2543; J2920

== ENCOUNTER 2018-02-15 18:53 | Inpatient (IN) | END 2018-02-27 20:06 | DRG 280 ==

== ENCOUNTER 2018-09-27 00:36 | Inpatient (IN) | END 2018-10-05 19:00 | DRG 291 ==

== ENCOUNTER 2018-11-22 21:09 | Emergency (ER) | payer MEDICARE, OTHER ==
[~2018-11-22] VITALS: Wt 98.0 kg
[~2018-11-22 21:09] MED LIST: ACET325T45 PO; ALLO100T PO; AMIO200T4 PO; ASPI325T32 PO; ATOR10TA65 PO; BISA10SU75 PR; CALC-459 PO; DICL100G37 TOP; DOCU-159 PO; EPOE10004 IJ; FER325 PO; GABA300C16 PO; GUAI-602 PO; GUAI5SYR2 PO; HYDR-3671 PO; IPRA3AMP29 INHALATION; ISOS10TA2 PO; NITR0.4T32 SL; OMEG-135 PO; OMEP20CA16 PO; OXYC-438 PO; PRAM0.5T5 PO; SODI15OR8 PO; TAMS-14 PO
[2018-11-22] MEDS ORDERED: IPRATROPIUM (NEB) 0.5 MG/2.5 ML AMP INH STA (23:59)
[2018-11-22] MEDS ORDERED: KETOROLAC 15 MG INJ IV STA (23:59)
[2018-11-22] MEDS ORDERED: ALBUTEROL 0.5% (NEB) 2.5 MG/0.5 ML AMP INH STA (23:59)
[2018-11-22] MEDS ORDERED: METHYLPREDNISOLONE 125 MG INJ IV STA (23:59)
--- NOTE | 2018-11-23 01:21 | ERD ---
ER Documentation Chief Complaint Chief Complaint bib pa from senior living for low o2 sat, pt requested transfer HPI This is an 88-year-old female with a past medical history of hypertension, hyperlipidemia, CHF, CKD, COPD who is presenting from a [facility] facility for a reported transient episode of low O2 sat. The patient endorses mild shortness of breath and a productive cough of clear sputum over the last 1-2 days. She endorses mild wheezing as well. The patient has not felt sick otherwise. She denies any fever or chills. She has had some mild chest tightness but denies any chest pain. The patient does have a history of chronic pain, including bilateral shoulder pain. She takes oral narcotics at the [facility] facility for this and is requesting something for pain. She also endorses bilateral progressive worsening vision. This is been ongoing. The patient has had no headache. The patient does not endorse neck or back pain. The patient denies lightheadedness or dizziness. The patient has had no chest pain or trouble breathing. The patient denies nausea or vomiting. The patient denies abdominal pain. The patient denies changes to bowel movements or urination. The patient has had no focal deficits. The patient has had no weakness or numbness or tingling to the face or extremities. ROS All systems reviewed and are negative except as per history of present illness. Medications Home Meds Active Scripts Prednisone* (Prednisone*) 20 Mg Tab, 40 MG PO DAILY for 4 Days, TAB Prov:LEONCIO BRAY MD 11/23/18 Reported Medications Diclofenac Sodium* (Voltaren* Gel) 1% -100 Gm Gel, 4 GM TOP Q12H for PAIN, #1 TUB FOR PAIN ON BILATERAL SHOULDERS ANDBOTH FEET. 02/15/18 Guaifenesin-Dextromethorphan* (Robitussin* DM) 100MG/10MG/5ML Syrup, 10 ML PO Q4H PRN for COUGH, ML 02/15/18 Guaifenesin/Codeine Phosphate (Virtussin AC Liquid) 118 Ml Liquid, 10 ML PO Q4H PRN for NEEDED 02/15/18 Epoetin Larry (Procrit) 10,000 Unit/1 Ml Vial, 52009 UNIT IJ Q TUE,FRI, VIAL 02/15/18 Oxycodone HCl/Acetaminophen (Oxycodone-Acetaminophen 5-325) 1 Each Tablet, 1 EACH PO Q6H for PAIN LEVEL 4-10/10, TAB 02/15/18 Omeprazole* (Omeprazole*) 20 Mg Capsule.dr, 40 MG PO DAILY, #30 CAP 02/15/18 Nitroglycerin* (Nitroglycerin* SL) 0.4 Mg Tab.subl, 0.4 MG SL Q5MIN PRN for CHEST PAIN, BOTTLE 02/15/18 Gabapentin* (Gabapentin*) 300 Mg Capsule, 300 MG PO QHS, #60 CAP 02/15/18 Pramipexole* (Mirapex*) 0.5 Mg Tablet, 0.5 MG PO QHS, TAB 02/15/18 Sodium Polystyrene Sulfonate* (Kayexalate*) 15 Gm/60 Ml Susp, 30 GM PO Q TUE,FRI, ML 02/15/18 Isosorbide Dinitrate* (Isosorbide Dinitrate*) 10 Mg Tablet, 10 MG PO TID, TAB 02/15/18 Hydralazine Hcl* (Hydralazine Hcl*) 25 Mg Tab, 25 MG PO Q6H PRN for FOR BP>160/95, #60 TAB 02/15/18 Tamsulosin Hcl* (Flomax*) 0.4 Mg Cap.er.24h, 0.4 MG PO DAILY, CAP 02/15/18 Hollis-3 Fatty Acids/Fish Oil (Fish Oil 1,000 mg Capsule) 1 Each Capsule, 1 EACH PO DAILY, CAP 02/15/18 Ferrous Sulfate* (Ferrous Sulfate*) 325 Mg Tabec, 325 MG PO DAILY, TAB 02/15/18 Ipratropium-Albuterol (Ipratropium-Albuterol) 0.5-3 Mg/3 Ml Ampul.neb, 3 ML INHALATION Q4H PRN for WHEEZING AND SOB, #30 VIAL 02/15/18 Bisacodyl* (Bisacodyl*) 10 Mg Supp, 10 MG ND Q48H, SUPP 02/15/18 Docusate Sodium* (Docusate Sodium*) 100 Mg Capsule, 100 MG PO BID, #60 CAP 02/15/18 Calcium Carbonate (Calcium Carbonate) 500 Mg Tab.chew, 500 MG PO DAILY, TAB.CHEW 02/15/18 Atorvastatin Calcium (Atorvastatin Calcium) 10 Mg Tablet, 10 MG PO QHS, #30 TAB 02/15/18 Aspirin* (Aspirin* EC) 325 Mg Tab, 325 MG PO DAILY, TAB 02/15/18 Amiodarone Hcl* (Amiodarone Hcl*) 200 Mg Tablet, 200 MG PO DAILY, #30 TAB HOLD IF APICAL PULSE IS<60 02/15/18 Allopurinol* (Allopurinol*) 100 Mg Tablet, 200 MG PO DAILY, TAB 02/15/18 Acetaminophen* (Acetaminophen*) 325 Mg Tablet, 650 MG PO Q4H PRN for MILD PAIN LEVEL 1-3, #30 TAB AND FOR FEVER 02/15/18 Allergies Allergies: Coded Allergies: aspirin (Verified Allergy, Unknown, 09/26/18) PMhx/Soc History of Surgery: Yes (CHOLECYSTECTOMY, APPENDECTOMY) Anesthesia Reaction: No Hx 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 Disorder: No Hx Respiratory Disorders: Yes (COPD) Hx Cardiac Disorders: Yes (HTN, CHF, HYPERLIPIDEMIA) Hx Psychiatric Problems: Yes (DEPRESSION) Hx Miscellaneous Medical Probl: Yes (Gout, anemia, CKD, hyperlipidemia) Hx Alcohol Use: No Hx Substance Use: No Hx Tobacco Use: No Smoking Status: Never smoker FmHx Family History: No diabetes Physical Exam Vitals Vital Signs Date Temp Pulse Resp B/P (MAP) Pulse Ox O2 O2 Flow FiO2 Time Delivery Rate 11/23/18 98.5 68 18 105/63 95 Room Air 03:45 (77) 11/23/18 74 22 91/50 (64) 100 Room Air 01:45 11/23/18 65 18 96 21 00:36 11/22/18 67 24 126/50 98 Room Air 23:45 (75) 11/22/18 Nasal 21:24 Cannula 11/22/18 96.9 72 19 123/65 96 Room Air 21:24 (84) 11/22/18 96.8 74 19 126/61 100 21:16 (82) Physical Exam Const: No apparent distress, well-developed, well-nourished Head: Normocephalic, Atraumatic Eyes: Normal Conjunctiva. Extraocular movements intact. Pupils equal, round and reactive to light ENT: Normal External Ears, Nose and Mouth. Neck: Full range of motion. No meningismus. Resp: Scattered wheezes. No rales or rhonchi Cardio: Regular rate and rhythm. No murmurs, rubs or gallops Abd: Obesity. Soft, non tender, non distended. Normal bowel sounds Skin: No petechiae or rashes Back: No midline tenderness. No CVA tenderness Ext: No cyanosis, or edema Neur: Awake and alert, oriented 4. Cranial nerves intact. No facial droop. Normal strength, sensation and coordination. Psych: Normal Mood and Affect Result Diagram: 11/22/18212911/22/182129 Results 24 hrs Laboratory Tests Test 11/22/18 21:30 White Blood Count 7.3 10^3/ul Red Blood Count 2.73 10^6/ul Hemoglobin 8.2 g/dl Hematocrit 25.9 % Mean Corpuscular Volume 94.9 fl Mean Corpuscular Hemoglobin 30.0 pg Mean Corpuscular Hemoglobin Concent 31.7 g/dl Red Cell Distribution Width 16.3 % Platelet Count 177 10^3/UL Mean Platelet Volume 10.6 fl Immature Granulocytes % 0.300 % Neutrophils % 85.7 % Lymphocytes % 9.0 % Monocytes % 3.4 % Eosinophils % 1.5 % Basophils % 0.1 % Nucleated Red Blood Cells % 0.0 /100WBC Immature Granulocytes # 0.020 10^3/ul Neutrophils # 6.3 10^3/ul Lymphocytes # 0.7 10^3/ul Monocytes # 0.3 10^3/ul Eosinophils # 0.1 10^3/ul Basophils # 0.0 10^3/ul Nucleated Red Blood Cells # 0.0 10^3/ul Prothrombin Time 11.8 Sec Prothrombin Time Ratio 0.9 INR International Normalized Ratio 0.86 Sodium Level 133 mmol/L Potassium Level 4.2 mmol/L Chloride Level 101 mmol/L Carbon Dioxide Level 19 mmol/L Anion Gap 13 Blood Urea Nitrogen 76 mg/dl Creatinine 4.79 mg/dl Est Glomerular Filtrat Rate mL/min mL/min Glucose Level 174 mg/dl Calcium Level 9.0 mg/dl Troponin I 0.014 ng/ml B-Type Natriuretic Peptide 562 PG/ML Current Medications Medications Dose Sig/Chuck Start Time Status Last (Trade) Ordered Route PRN Stop Time Admin Dose Reason Admin Ipratropium 1.5 mg ONCE STAT 11/22/18 DC 11/23/18 [place] INH 23:59 00:35 (Atrovent 11/23/18 0.02% 00:02 (Neb)) Albuterol 15 mg ONCE STAT 11/22/18 DC 11/23/18 (Proventil INH 23:59 00:35 0.5% (Neb)) 11/23/18 00:02 125 mg ONCE STAT 11/22/18 DC 11/23/18 Methylprednis IV 23:59 00:18 olone Sodium 11/23/18 Succinate 00:02 (Solu-Medrol) Ketorolac 15 mg ONCE STAT 11/22/18 DC 11/23/18 Tromethamine IV 23:59 00:19 (Toradol) 11/23/18 00:02 Procedures/MDM MDM The patient's presentation warrants further investigation. Previous medical records, if available, were reviewed. LABS The patient's laboratory testing was obtained and reviewed. No emergent treatment was required unless described below. CBC: No E/o of systemic infection or thrombocytopenia. Normocytic anemia, nonemergent. BMP: No E/o severe acidosis or alkalosis or diabetic ketoacidosis. Elevated BUN and creatinine in line with her end-stage renal disease. PT/INR: No E/o significant coagulopathy Troponin: No E/o acute ischemia BNP: Elevated in an indeterminate range without clinical suspicion for an acute heart failure exacerbation EKG EKG read by me: Rate/Rhythm: Normal sinus rhythm at 69 bpm Intervals: Normal [place]: Normal Impression: Q waves in the septal leads concerning for old ischemia. Nonspecific repolarization changes without evidence of acute ischemia. No arrhythmia IMAGING Imaging and Radiology interpretation reviewed. CXR FINDINGS: The trachea is midline. The cardiac silhouette is enlarged and pulmonary vascularity are within normal limits. There is atherosclerotic calcification of the aortic knob. There are bilateral chronic lung changes. The lungs are clear. The costophrenic angles are sharp. IMPRESSION: Cardiomegaly and atherosclerotic disease. Bilateral chronic lung changes. No evidence of acute cardiopulmonary disease. Electronically viewed and signed by Dominic Rondon Physician on 11/22/2018 23:15 TREATMENT/DISPOSITION The patient presents with a cough with shortness of breath and wheezing. There is a reported episode of hypoxia at the nursing facility, which is what ultimately prompted her to come to the emergency department. On room air, the patient is not hypoxic in the emergency department. She does have diffuse wheezes and I am concerned about a mild COPD exacerbation in the setting of an upper respiratory infection. The patient was given nebulized albuterol ipratropium in addition to IV Solu-Medrol with improvement of her shortness of breath. The patient will require a prescription for steroids. The patient's chest x-ray does not reveal any evidence of pneumonia. I have low suspicion for a bacterial etiology of symptoms. I do not feel the patient requires antibiotics at this time. The patient does have a cardiac history, so a cardiac workup was completed. The patient's chest xray does not reveal pneumonia or pneumothorax or pleural effusions or pulmonary edema. She does not have a widened mediastinum and does not have signs or symptoms concerning for thoracic aortic aneurysm or dissection. The patient does not have pneumomediastinum or signs concerning for esophageal tear or rupture. The patient has no clinical or radiographic signs of pericardial effusion or tamponade. The patient does not have pneumoperitoneum and I have decreased suspicion of viscus perforation as possible referred pain. The patient does not have a history of heart failure and I have low suspicion for this. The patient is not tachypneic or hypoxic. The patient is breathing comfortably and without pleuritic pain. The patient is not on hormonal therapy. The patient has no history of clotting or bleeding disorders. The patient has no calf tenderness. The patient has had no hemoptysis. I have decreased suspicion for PE. The patient's troponin and EKG are reassuring. I have low suspicion for acute coronary syndrome. The patient also endorses chronic arthritic pains. She was given a dose of Toradol in the emergency department. I opted not to provide her with any narcotic medications as this can lead to respiratory depression and hypoxia. The patient may take her medications at home as prescribed. The patient also endorses progressive decreased visual acuity. This is not acute and may be followed up further at her [facility] facility in an outpatient setting. The patient does not have any focal deficits. Her neurologic exam is reassuring. I have low suspicion for cerebral ischemia or intracranial hemorrhage. There is no history or medical findings concerning for trauma or injury. Upon reevaluation of the patient, symptoms have improved. No emergent diagnoses were identified. At this time, I feel that the patient stable for discharge. The patient was instructed to follow-up with a primary care physician in 1-3 days. The patient will be given strict precautions with which to return to the emergency department. Prescriptions: Prednisone The patient's blood pressure was elevated at greater than 120/80 while in the emergency department. The patient was otherwise stable with no evidence of hypertensive urgency or emergency. The patient does not require admission for blood pressure control. I have discussed with the patient the risks of hypertension. I have instructed the patient to return to the ER for any new or worsening symptoms including chest pain, shortness of breath, headache, blurred vision, confusion, nausea, vomiting or LOC. I have advised the patient to follow up with the primary care physician for outpatient monitoring and treatment for hypertension in 1-3 days. Disclaimer: Inadvertent spelling and grammatical errors are likely due to EHR/dictation software use and do not reflect on the overall quality of patient care. Note that the electronic time recorded on this note does not necessarily reflect the actual time of the patient encounter. Departure Diagnosis: Primary Impression: COPD (chronic obstructive pulmonary disease) COPD type: unspecified COPD Qualified Codes: J44.9 - Chronic obstructive pulmonary disease, unspecified Additional Impressions: Shortness of breath Normocytic anemia Chronic kidney disease Chronic kidney disease stage: unspecified stage Qualified Codes: N18.9 - Chronic kidney disease, unspecified CHF (congestive heart failure) Heart failure type: unspecified Heart failure chronicity: chronic Qualified Codes: I50.9 - Heart failure, unspecified Elevated brain natriuretic peptide (BNP) level URI (upper respiratory infection) URI type: unspecified URI Qualified Codes: J06.9 - Acute upper respiratory infection, unspecified Cough Condition: LEONCIO Cruz MD Nov 23, 2018 01:21
[2018-11-23] MEDS ORDERED: PRED20TA PO (01:29)
[2018-11-23 03:45] VITALS: BP 105/63; PULSE 68; RESP 18
== END 2018-11-23 04:15 | disposition home or self-care (01) ==
LOC: E/R 21:09
DX: J44.9 Chronic obstructive pulmonary disease, unspecified (principal); D64.9 Anemia, unspecified; N18.9 Chronic kidney disease, unspecified; I50.9 Heart failure, unspecified; R79.89 Other specified abnormal findings of blood chemistry; J06.9 Acute upper respiratory infection, unspecified; I11.0 Hypertensive heart disease with heart failure; I12.9 Hypertensive chronic kidney disease with stage 1 through stage 4 chronic kidney disease, or unspecified chronic kidney disease; Z79.82 Long term (current) use of aspirin
CPT/HCPCS: 36415; 71045; 80048; 83880; 84484; 85025; 85610; 93005; 94644; 96374; 96375; 99285; J1885; J2930

== ENCOUNTER 2018-11-25 17:08 | Inpatient (IN) | payer MEDICARE, OTHER ==
[~2018-11-25] VITALS: Ht 160 cm; Wt 80.0 kg
[~2018-11-25 17:08] MED LIST changes: +PRED20TA PO
[2018-11-25] MEDS ORDERED: NA BICARBONATE 8.4% 50 ML SYG IV STA (17:17)
[2018-11-25] MEDS ORDERED: ONDANSETRON 4 MG INJ IV PRN (17:30)
[2018-11-25] MEDS ORDERED: ACETAMINOPHEN 325 MG TAB PO PRN (17:30)
[2018-11-25] MEDS ORDERED: FUROSEMIDE 20 MG INJ IV ONE (17:30)
[2018-11-25] MEDS ORDERED: CEFTRIAXONE 1 GM/50 ML (PMX) 50 ML IVPB ONE (18:00)
[2018-11-25] MEDS ORDERED: PRED20TA PO (18:15)
[2018-11-25] MEDS ORDERED: MUPI22OI2 TOP (18:16)
[2018-11-25] MEDS ORDERED: PANT40TA4 PO (18:16)
[2018-11-25] MEDS ORDERED: FURO40TA4 PO (18:17)
[2018-11-25] MEDS ORDERED: CLOP75TA19 PO (18:18)
[2018-11-25] MEDS ORDERED: SOD CHLORIDE 0.9% 0 ML IV ONE (18:25)
[2018-11-25] MEDS ORDERED: SOD CHLORIDE 0.9% 1,000 ML IV STA (18:25)
[2018-11-25] MEDS ORDERED: ALBUTEROL 0.5% (NEB) 2.5 MG/0.5 ML AMP INH STA (18:39)
[2018-11-25] MEDS ORDERED: CA CHLORIDE 10% 10 ML SYRINGE IV STA (18:39)
[2018-11-25] MEDS ORDERED: ATROPINE 0.4 MG INJ IV ONE (19:00)
[2018-11-25] MEDS ORDERED: SODIUM CHLORIDE 0.9% 1L BAG IV* STA (19:07)
[2018-11-25] MEDS ORDERED: ATROPINE 1 MG INJ IV ONE (19:30)
[2018-11-25] MEDS ORDERED: DOPamine-D5W 1.6 MG/ML 250 ML IV STA (19:33)
--- NOTE | 2018-11-25 20:10 | ERD ---
ER Documentation Chief Complaint Chief Complaint sob with chest congestion and edema from snf HPI Patient is an 88-year-old female who presents with "edema". Please note the history and physical exam is limited secondary to the patient's mental status at this time. The patient was brought in by ambulance. She had a pulse of 49 d iffuse weakness. She says "I have edema". She denies chest pain or shortness of breath. Her primary doctor is Dr. Olivier. Dr. Olivier feels like she may have worsening renal failure. ROS All systems reviewed and are negative except as per history of present illness. Medications Home Meds Reported Medications Clopidogrel Bisulfate* (Clopidogrel Bisulfate*) 75 Mg Tablet, 75 MG PO DAILY, #30 TAB 11/25/18 Furosemide* (Furosemide*) 40 Mg Tablet, 40 MG PO BID, TAB HOLD FOR SBP<110 11/25/18 Mupirocin* (Bactroban*) 2% -22 Gram Oint...g., 1 APPLIC TOP BID, #1 TUB SITE OF APPLICATION: 11/25/18 Pantoprazole* (Pantoprazole*) 40 Mg Tablet.dr, 40 MG PO AC BREAKFAST, TAB 11/25/18 Prednisone* (Prednisone*) 20 Mg Tab, 40 MG PO DAILY, TAB FOR 4 DAYS,START DATE 11/23/18, END DATE 11/27/18 11/25/18 Guaifenesin-Dextromethorphan* (Robitussin* DM) 100MG/10MG/5ML Syrup, 10 ML PO Q4H PRN for COUGH, ML 02/15/18 Gabapentin* (Gabapentin*) 300 Mg Capsule, 300 MG PO QHS, #60 CAP 02/15/18 Pramipexole* (Mirapex*) 0.5 Mg Tablet, 0.5 MG PO QHS, TAB 02/15/18 Hydralazine Hcl* (Hydralazine Hcl*) 25 Mg Tab, 25 MG PO Q6H PRN for FOR BP>160/95, #60 TAB 02/15/18 Tamsulosin Hcl* (Flomax*) 0.4 Mg Cap.er.24h, 0.4 MG PO DAILY, CAP 02/15/18 Ferrous Sulfate* (Ferrous Sulfate*) 325 Mg Tabec, 325 MG PO DAILY, TAB 02/15/18 Bisacodyl* (Bisacodyl*) 10 Mg Supp, 10 MG [place] Q48H, SUPP 02/15/18 Docusate Sodium* (Docusate Sodium*) 100 Mg Capsule, 100 MG PO BID, #60 CAP 02/15/18 Atorvastatin Calcium (Atorvastatin Calcium) 10 Mg Tablet, 10 MG PO QHS, #30 TAB 02/15/18 Aspirin* (Aspirin* EC) 325 Mg Tab, 325 MG PO DAILY, TAB 02/15/18 Amiodarone Hcl* (Amiodarone Hcl*) 200 Mg Tablet, 200 MG PO DAILY, #30 TAB HOLD IF APICAL PULSE IS<60 02/15/18 Allopurinol* (Allopurinol*) 100 Mg Tablet, 200 MG PO DAILY, TAB 02/15/18 Acetaminophen* (Acetaminophen*) 325 Mg Tablet, 650 MG PO Q4H PRN for MILD PAIN LEVEL 1-3, #30 TAB AND FOR FEVER 02/15/18 Discontinued Reported Medications Diclofenac Sodium* (Voltaren* Gel) 1% -100 Gm Gel, 4 GM TOP Q12H for PAIN, #1 TUB FOR PAIN ON BILATERAL SHOULDERS ANDBOTH FEET. 02/15/18 Guaifenesin/Codeine Phosphate (Virtussin AC Liquid) 118 Ml Liquid, 10 ML PO Q4H PRN for NEEDED 02/15/18 Epoetin Larry (Procrit) 10,000 Unit/1 Ml Vial, 59470 UNIT IJ Q TUE,FRI, VIAL 02/15/18 Oxycodone HCl/Acetaminophen (Oxycodone-Acetaminophen 5-325) 1 Each Tablet, 1 EACH PO Q6H for PAIN LEVEL 4-10/10, TAB 02/15/18 Omeprazole* (Omeprazole*) 20 Mg Capsule.dr, 40 MG PO DAILY, #30 CAP 02/15/18 Nitroglycerin* (Nitroglycerin* SL) 0.4 Mg Tab.subl, 0.4 MG SL Q5MIN PRN for CHEST PAIN, BOTTLE 02/15/18 Sodium Polystyrene Sulfonate* (Kayexalate*) 15 Gm/60 Ml Susp, 30 GM PO Q TUE,FRI, ML 02/15/18 Isosorbide Dinitrate* (Isosorbide Dinitrate*) 10 Mg Tablet, 10 MG PO TID, TAB 02/15/18 Brooks-3 Fatty Acids/Fish Oil (Fish Oil 1,000 mg Capsule) 1 Each Capsule, 1 EACH PO DAILY, CAP 02/15/18 Ipratropium-Albuterol (Ipratropium-Albuterol) 0.5-3 Mg/3 Ml Ampul.neb, 3 ML INHALATION Q4H PRN for WHEEZING AND SOB, #30 VIAL 02/15/18 Calcium Carbonate (Calcium Carbonate) 500 Mg Tab.chew, 500 MG PO DAILY, TAB.CHEW 02/15/18 Discontinued Scripts Prednisone* (Prednisone*) 20 Mg Tab, 40 MG PO DAILY for 4 Days, TAB Prov:LEONCIO BRAY MD 11/23/18 Allergies Allergies: Coded Allergies: aspirin (Verified Allergy, Unknown, 11/25/18) PMhx/Soc History of Surgery: Yes (CHOLECYSTECTOMY, APPENDECTOMY) Anesthesia Reaction: No Hx 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 Disorder: No Hx Respiratory Disorders: Yes (COPD) Hx Cardiac Disorders: Yes (HTN, CHF, HYPERLIPIDEMIA) Hx Psychiatric Problems: Yes (DEPRESSION) Hx Miscellaneous Medical Probl: Yes (Gout, anemia, CKD, hyperlipidemia) Hx Alcohol Use: No Hx Substance Use: No Hx Tobacco Use: No Smoking Status: Never smoker FmHx Family History: No diabetes Physical Exam Vitals Vital Signs Date Temp Pulse Resp B/P (MAP) Pulse Ox O2 O2 Flow FiO2 Time Delivery Rate 11/25/18 52 16 99 Nasal 2.0 18:57 Cannula 11/25/18 90.2 48 28 75/41 (52) 92 17:37 11/25/18 Nasal 3 17:30 Cannula 11/25/18 Nasal 3.0 17:30 Cannula Physical Exam Const: Moderate distress Head: Atraumatic Eyes: Normal Conjunctiva ENT: Normal External Ears, Nose and Mouth. Neck: Full range of motion. No meningismus. Resp: Clear to auscultation bilaterally Cardio: Regular rate and rhythm, no murmurs Abd: Soft, non tender, non distended. Normal bowel sounds Skin: Pale skin Back: No midline or flank tenderness Ext: No cyanosis, or edema Neur: Awake but confused Result Diagram: 11/25/18 1733 11/25/18 1733 Results 24 hrs Laboratory Tests Test 11/25/18 17:33 11/25/18 17:39 White Blood Count 11.4 10^3/ul Red Blood Count 2.59 10^6/ul Hemoglobin 7.9 g/dl Hematocrit 24.2 % Mean Corpuscular Volume 93.4 fl Mean Corpuscular Hemoglobin 30.5 pg Mean Corpuscular Hemoglobin Concent 32.6 g/dl Red Cell Distribution Width 16.4 % Platelet Count 160 10^3/UL Mean Platelet Volume 10.6 fl Immature Granulocytes % 0.500 % Neutrophils % 92.4 % Lymphocytes % 4.7 % Monocytes % 2.3 % Eosinophils % 0.0 % Basophils % 0.1 % Nucleated Red Blood Cells % 0.2 /100WBC Immature Granulocytes # 0.060 10^3/ul Neutrophils # 10.5 10^3/ul Lymphocytes # 0.5 10^3/ul Monocytes # 0.3 10^3/ul Eosinophils # 0.0 10^3/ul Basophils # 0.0 10^3/ul Nucleated Red Blood Cells # 0.0 10^3/ul Prothrombin Time 12.3 Sec Prothrombin Time Ratio 1.0 INR International Normalized Ratio 0.90 Activated Partial Thromboplast Time 37.2 Sec Sodium Level 129 mmol/L Potassium Level 5.9 mmol/L Chloride Level 99 mmol/L Carbon Dioxide Level 19 mmol/L Anion Gap 11 Blood Urea Nitrogen 107 mg/dl Creatinine 5.55 mg/dl Est Glomerular Filtrat Rate mL/min mL/min Glucose Level 110 mg/dl Calcium Level 8.5 mg/dl Troponin I 0.016 ng/ml POC Venous Lactate 1.5 mmol/L Current Medications Medications Dose Sig/Chuck Start Time Status Last (Trade) Ordered Route PRN Stop Time Admin Dose Reason Admin Furosemide 20 mg ONCE ONCE 11/25/18 DC 11/25/18 (Lasix) IV 17:30 11/25/18 17:47 17:31 Ondansetron 4 mg ER BRIDGE 11/25/18 11/25/18 HCl (Zofran PRN IV 17:30 11/26/18 19:20 Inj) NAUSEA AND/OR 17:29 VOMITING 650 mg ER BRIDGE 11/25/18 Acetaminophen PRN PO MILD 17:30 11/26/18 (Tylenol PAIN(1-3)OR 17:29 Tab) ELEVATED TEMP Sodium 50 ml ONCE STAT 11/25/18 DC 11/25/18 Bicarbonate IV 17:17 11/25/18 17:43 (Na Bicarb 17:19 8.4% Syg) Ceftriaxone 50 ml @ ONCE ONCE 11/25/18 DC 11/25/18 Sodium 100 mls/hr IVPB 18:00 11/25/18 18:04 18:29 Sodium 1,000 ml @ Q1H STAT 11/25/18 DC Chloride 1,000 mls/hr IV 18:25 11/25/18 19:08 Sodium 0 ml @ 0 Q0M ONCE 11/25/18 DC Chloride mls/hr IV 18:25 11/25/18 18:26 Atropine 0.5 mg ONCE ONCE 11/25/18 DC Sulfate IV 19:00 11/25/18 (Atropine) 19:01 Albuterol 15 mg ONCE STAT 11/25/18 DC 11/25/18 (Proventil INH 18:39 11/25/18 18:57 0.5% (Neb)) 18:40 Calcium 1,000 mg ONCE STAT 11/25/18 DC 11/25/18 Chloride IV 18:39 11/25/18 19:12 (Ca Chloride 18:40 10% Syg) Sodium 2,180 ml BOLUS OVER 2 11/25/18 DC 11/25/18 Chloride HOURS STAT 19:07 11/25/18 19:12 (NS) IV* 19:08 Atropine 0.5 mg ONCE ONCE 11/25/18 DC 11/25/18 Sulfate IV 19:30 11/25/18 19:37 (Atropine) 19:31 Dopamine 250 ml @ 0 ONCE STAT 11/25/18 DC 11/25/18 HCl/ mls/hr IV 19:33 11/25/18 19:43 Dextrose 19:34 Procedures/MDM EKG #1 read by me: Rate/Rhythm: Junctional rhythm at a rate of 48 Intervals: Normal Impression: Bradycardia EKG #2read by me: Rate/Rhythm: Fibrillation with PVC Intervals: Normal Impression: Atrial fibrillation at a rate of 90 with PVC X-ray read by radiology. Patient is an 88-year-old female who presents with bradycardia and hypotension. At this point I see no signs of bacterial infection to diagnose sepsis or septic shock. The patient was given 30 mL/kg of fluid bolus and broad-spectrum antibiotics prophylactically but initial lactic acid was normal. The patient was found to have anemia with a hemoglobin of 7.9 will have 2 units of packed red blood cells transfused. I was concerned for hyperkalemia she does have acu te renal failure and amp of bicarb was given as well as albuterol and calcium chloride. The patient was also given atropine and then dopamine drip. The patient will be admitted to the intensive care unit to the care of Dr. Olivier. Her prognosis is poor and given her age and comorbidities discussed with the family regarding goals of care would be appropriate. Cultures are pending. Critical Care: Time: 45 minutes excluding all billable procedures. Treatments/Evaluations: Close monitoring and treatment of unstable vital signs, cardiorespiratory, and neurologic status, while maintaining tight balance of fluid, respiratory, and cardiac interventions. Departure Diagnosis: Primary Impression: Hypotension Hypotension type: unspecified hypotension type Qualified Codes: I95.9 - Hypotension, unspecified Additional Impressions: ARF (acute renal failure) Acute renal failure type: unspecified Qualified Codes: N17.9 - Acute kidney failure, unspecified Shortness of breath Bradycardia Condition: Critical ABDOUL HAMLIN MD Nov 25, 2018 20:10
[2018-11-25] MEDS ORDERED: ACETAMINOPHEN 500 MG TAB PO PRN (22:30)
[2018-11-25] MEDS ORDERED: ONDANSETRON 4 MG INJ IV ONE (22:33)
[2018-11-25] MEDS: METHYLPREDNISOLONE 40 MG INJ IV SCH (22:44)
[2018-11-26] VITALS (77 sets, daily range): BP systolic 58–178; BP diastolic 32–104; PULSE 37–76; RESP 7–24; Ht 160 cm; Wt 80.0 kg
[2018-11-26] MEDS: DOPamine-D5W 1.6 MG/ML 250 ML IV SCH ×2 (02:51→08:07)
[2018-11-26] MEDS ORDERED: ALBUMIN HUMAN 25% 100 ML IV STA (07:59)
[2018-11-26] MEDS ORDERED: LIDOCAINE 1% (MPF) 5 ML VIAL SC ONE (08:00)
--- NOTE | 2018-11-26 08:06 | CONS ---
Date/Time of Note Date/Time of Note DATE: 11/26/18 TIME: 08:06 Assessment/Plan Assessment/Plan Assessment/Plan 1. Oliguric Acute kindey injury on CKD III due to ATN from septic shock, 2. acute uremic encephalopathy 3. acute hyperkalemia 4. Severe metabolic acidosis 5. Septic shock on pressors 6. acute hypoxemic respiraotry failure on BIPAP 7. acute on chronic,systolic and diastolic heart failure 8. H/o HTN 9. H/o COPD Plan: Seen in ICU, Metaboclic acidois, hyperklaemia, uremic encephalopathy , did not respond to bicarboante drip, Oliguric, Need HD initiation discussed with family , agreed for HD, s/p Quinoton cathter placement by - manasa pantoja for HD today 2 hr and 3 hr tomorrow Thanks for consultaiton, larry patricknue to follow up Result Diagram: 11/26/18 0434 11/26/18 0434 Results 24hrs Laboratory Tests Test 11/25/18 17:33 11/25/18 17:39 11/25/18 21:34 11/26/18 04:34 White Blood Count 11.4 #H 10.2 Red Blood Count 2.59 L 3.49 #L Hemoglobin 7.9 L 10.8 #L Hematocrit 24.2 L 33.1 #L Mean Corpuscular 93.4 94.8 Volume Mean Corpuscular 30.5 30.9 Hemoglobin Mean Corpuscular 32.6 32.6 Hemoglobin Concent Red Cell 16.4 H 15.9 H Distribution Width Platelet Count 160 188 Mean Platelet 10.6 H 11.6 H Volume Immature 0.500 H 1.200 H Granulocytes % Neutrophils % 92.4 H 90.0 H Lymphocytes % 4.7 L 2.3 L Monocytes % 2.3 6.4 Eosinophils % 0.0 0.0 Basophils % 0.1 0.1 Nucleated Red Blood 0.2 H 0.3 H Cells % Immature 0.060 H 0.120 H Granulocytes # Neutrophils # 10.5 H 9.2 H Lymphocytes # 0.5 L 0.2 L Monocytes # 0.3 0.7 Eosinophils # 0.0 0.0 Basophils # 0.0 0.0 Nucleated Red Blood 0.0 0.0 Cells # Prothrombin Time 12.3 Prothrombin Time 1.0 Ratio INR International 0.90 Normalized Ratio Activated 37.2 H Partial Thromboplas t Time Sodium Level 129 L 134 L Potassium Level 5.9 H 5.7 H Chloride Level 99 101 Carbon Dioxide 19 L 17 L Level Anion Gap 11 16 H Blood Urea Nitrogen 107 H 98 H Creatinine 5.55 H 5.55 H Est Glomerular Filtrat Rate mL/min Glucose Level 110 128 Calcium Level 8.5 8.6 Troponin I 0.016 POC Venous Lactate 1.5 Lactic Acid Level 2.4 *H Total Bilirubin 0.0 L Direct Bilirubin 0.00 Indirect Bilirubin 0.0 Aspartate Amino 63 H Transf (AST/SGOT) Alanine 35 Aminotransferase (A LT/SGPT) Alkaline 86 Phosphatase B-Type Natriuretic 6860 H Peptide Total Protein 6.6 Albumin 3.8 Globulin 2.80 Albumin/Globulin 1.35 Ratio Test 11/26/18 04:54 11/26/18 05:02 Bedside Glucose 123 Lab Scanned Report BLOOD TRANSFUSION Consultation Date/Type/Reason Admit Date/Time Nov 25, 2018 at 17:12 Date of Consultation: Nov 26, 2018 Type of Consult NEPHROLOGY Reason for Consultation acute renal failure, hyperklaemia, Uremic encephlaopathy Requesting Provider: LOREN ROSE MD Hx of Present Illness 88-year-old lady who came in with increased shortness of breath, orthopnea, PND, altered mental status, found to have bradycardia requiring initiation of dopamine and significant mixed acidosis. The patient is nonverbal, unable to give me further details..pt is in acute renal failure with metabolic acidosis, uremic encephalopathy and Acidosis, Started on bicarbonate drip but still remains acidotic and hyperkalemia discussed [facility] family plan is to start pt on HD Subjective hx not possible: pt non-verbal, pt critical status Past Medical History Medical History: hypertension, other (COPD ) Medications Current Medications Ondansetron HCl (Zofran Inj) 4 mg ER BRIDGE PRN IV NAUSEA AND/OR VOMITING Last administered on 11/25/18at 19:20; Admin Dose 4 MG; Start 11/25/18 at 17:30; Stop 11/26/18 at 17:29 Acetaminophen (Tylenol Tab) 650 mg ER BRIDGE PRN PO MILD PAIN(1-3)OR ELEVATED TEMP; Start 11/25/18 at 17:30; Stop 11/26/18 at 17:29 Ceftriaxone Sodium 50 ml @ 100 mls/hr Q24H IVPB ; Start 11/26/18 at 18:00 Acetaminophen (Tylenol Tab) 500 mg Q4H PRN PO MILD PAIN(1-3)OR ELEVATED TEMP; Start 11/25/18 at 22:30 Albuterol/ Ipratropium (Duoneb) 3 ml Q6HWA RESP THERAPY HHN ; Start 11/26/18 at 08:00 Methylprednisolone Sodium Succinate (Solu-Medrol) 40 mg Q12 IV Last administered on 11/25/18at 22:44; Admin Dose 40 MG; Start 11/25/18 at 22:30 Acetaminophen (Tylenol Tab) 500 mg Q6H PRN PO MILD PAIN(1-3)OR ELEVATED TEMP; Start 11/25/18 at 22:30 Dopamine HCl/ Dextrose 250 ml @ 5.91 mls/hr TITRATE IV Last administered on 11/26/18at 02:51; Admin Dose 11.82 MLS/HR; Start 11/26/18 at 02:30 Lidocaine (Xylocaine 1% (Mpf)) 5 ml ONCE ONCE SC ; Start 11/26/18 at 08:00; Stop 11/26/18 at 08:01; Status UNV Sodium Bicarbonate 100 meq/Dextrose 1,000 ml @ 70 mls/hr [id number] IV ; Start 11/26/18 at 08:00; Status UNV Albumin Human 100 ml @ 100 mls/hr ONCE STAT IV ; Start 11/26/18 at 07:59; Stop 11/26/18 at 08:58 Furosemide (Lasix) 20 mg ONCE ONCE IV ; Start 11/26/18 at 08:00; Stop 11/26/18 at 08:01; Status UNV Allergies: Coded Allergies: aspirin (Verified Allergy, Unknown, 11/25/18) Past Surgical History Past Surgical Hx: other (cholecystectomy, appendectomy ) Family History Significant Family History: no pertinent family hx Social History Alcohol Use: none Smoking Status: Never smoker Drug Use: none Exam/Review of Systems Vital Signs Vitals Vital Signs Date Temp Pulse Resp B/P (MAP) Pulse Ox O2 O2 Flow FiO2 Time Delivery Rate 11/26/18 54 15 107/38 96 Nasal 3.0 07:00 (61) Cannula 11/26/18 97.4 06:00 Intake and Output 11/25/18 11/25/18 11/26/18 1515:00 23:00 07:00 IntakeIntake Total 2605 ml 85.22 ml OutputOutput Total 0 ml BalanceBalance 2605 ml 85.22 ml Exam GENERAL: Chronically ill appearing lady, somnolent but arousable. VITAL SIGNS: Currently afebrile, pulse is 63, blood pressure 109/84, O2 saturation 96% on 3 L nasal cannula. NECK: Supple. No JVD or lymphadenopathy. CARDIAC: S1, S2, no added sounds or murmurs. CHEST: Diminished air entry bilaterally. ABDOMEN: Soft, nontender. No guarding or rebound. EXTREMITIES: No cyanosis, clubbing, 1+ edema. NEUROLOGIC: Generalized weakness. Medications Medications Current Medications Ondansetron HCl (Zofran Inj) 4 mg ER BRIDGE PRN IV NAUSEA AND/OR VOMITING Last administered on 11/25/18at 19:20; Admin Dose 4 MG; Start 11/25/18 at 17:30; Stop 11/26/18 at 17:29 Acetaminophen (Tylenol Tab) 650 mg ER BRIDGE PRN PO MILD PAIN(1-3)OR ELEVATED TEMP; Start 11/25/18 at 17:30; Stop 11/26/18 at 17:29 Ceftriaxone Sodium 50 ml @ 100 mls/hr Q24H IVPB ; Start 11/26/18 at 18:00 Acetaminophen (Tylenol Tab) 500 mg Q4H PRN PO MILD PAIN(1-3)OR ELEVATED TEMP; Start 11/25/18 at 22:30 Albuterol/ Ipratropium (Duoneb) 3 ml Q6HWA RESP THERAPY HHN ; Start 11/26/18 at 08:00 Methylprednisolone Sodium Succinate (Solu-Medrol) 40 mg Q12 IV Last administered on 11/25/18at 22:44; Admin Dose 40 MG; Start 11/25/18 at 22:30 Acetaminophen (Tylenol Tab) 500 mg Q6H PRN PO MILD PAIN(1-3)OR ELEVATED TEMP; Start 11/25/18 at 22:30 Dopamine HCl/ Dextrose 250 ml @ 5.91 mls/hr TITRATE IV Last administered on 11/26/18at 02:51; Admin Dose 11.82 MLS/HR; Start 11/26/18 at 02:30 Lidocaine (Xylocaine 1% (Mpf)) 5 ml ONCE ONCE SC ; Start 11/26/18 at 08:00; Stop 11/26/18 at 08:01; Status UNV Sodium Bicarbonate 100 meq/Dextrose 1,000 ml @ 70 mls/hr [id number] IV ; Start 11/26/18 at 08:00; Status UNV Albumin Human 100 ml @ 100 mls/hr ONCE STAT IV ; Start 11/26/18 at 07:59; Stop 11/26/18 at 08:58 Furosemide (Lasix) 20 mg ONCE ONCE IV ; Start 11/26/18 at 08:00; Stop 11/26/18 at 08:01; Status UNV GI HARTMAN MD Nov 26, 2018 08:06
[2018-11-26] MEDS: ALBUTEROL/IPRATROPIUM (NEB) 3 ML AMP HHN SCH ×3 (08:48→19:47)
[2018-11-26] MEDS ORDERED: FUROSEMIDE 40 MG INJ IV SCH (09:00)
[2018-11-26] MEDS: METHYLPREDNISOLONE 40 MG INJ IV SCH ×2 (09:04→21:08)
[2018-11-26] MEDS: SODIUM BICARBONATE (IV ADD) 100 MEQ in DEXTROSE 5% 900 ML IV SCH ×2 (09:30→22:01)
[2018-11-26] MEDS ORDERED: HEPARIN 1000 UNITS/ML 10 ML INJ ONE (10:52)
--- NOTE | 2018-11-26 11:24 | HP ---
Date/Time of Note Date/Time of Note DATE: 11/26/18 TIME: 11:20 Assessment/Plan VTE Prophylaxis Risk score (from Ns)>0 risk: 9 [place] [facility] [place] Pharmacological prophylaxis: heparin Lines/Catheters IV [facility] Type (from [facility] Peripheral IV Central line still needed: Yes Urinary Cath still in place: Yes Reason Cath still needed: urinary retention Assessment/Plan Assessment/Plan -Acute respiratory failure requiring BiPAP. Dr. Garcia is following in pulmonology consultation. -Cardiogenic versus septic shock. Patient is currently on dopamine for blood pressure support. -Acute on chronic systolic and diastolic congestive heart failure. Dr. Iraheta is asked to see patient in cardiology consultation. -ARF on CKD. Dr Hill is following in nephrology consultation. -Pulmonary edema -Possible pneumonia -DNR status Further recommendations based on clinical course. Plan of care discussed with Dr. Olivier. Result Diagram: 11/26/18 0434 11/26/18 0434 Results 24hrs Laboratory Tests Test 11/25/18 17:33 11/25/18 17:39 11/25/18 21:34 11/26/18 04:34 White Blood 11.4 #H 10.2 Count Red Blood Count 2.59 L 3.49 #L Hemoglobin 7.9 L 10.8 #L Hematocrit 24.2 L 33.1 #L Mean Corpuscular 93.4 94.8 Volume Mean Corpuscular 30.5 30.9 Hemoglobin Mean Corpuscular 32.6 32.6 Hemoglobin Jessy nt Red Cell 16.4 H 15.9 H Distribution Width Platelet Count 160 188 Mean Platelet 10.6 H 11.6 H Volume Immature 0.500 H 1.200 H Granulocytes % Neutrophils % 92.4 H 90.0 H Lymphocytes % 4.7 L 2.3 L Monocytes % 2.3 6.4 Eosinophils % 0.0 0.0 Basophils % 0.1 0.1 Nucleated Red 0.2 H 0.3 H Blood Cells % Immature 0.060 H 0.120 H Granulocytes # Neutrophils # 10.5 H 9.2 H Lymphocytes # 0.5 L 0.2 L Monocytes # 0.3 0.7 Eosinophils # 0.0 0.0 Basophils # 0.0 0.0 Nucleated Red 0.0 0.0 Blood Cells # Prothrombin Time 12.3 Prothrombin Time 1.0 Ratio INR 0.90 International Normalized Ratio Activated 37.2 H Partial Thrombop last Time Sodium Level 129 L 134 L Potassium Level 5.9 H 5.7 H Chloride Level 99 101 Carbon Dioxide 19 L 17 L Level Anion Gap 11 16 H Blood Urea 107 H 98 H Nitrogen Creatinine 5.55 H 5.55 H Est Glomerular Filtrat Rate mL/min Glucose Level 110 128 Calcium Level 8.5 8.6 Troponin I 0.016 POC Venous 1.5 Lactate Lactic Acid 2.4 *H Level Total Bilirubin 0.0 L Direct Bilirubin 0.00 Indirect 0.0 Bilirubin Aspartate Amino 63 H Transf (AST/SGOT ) Alanine 35 Aminotransferase (ALT/SGPT) Alkaline 86 Phosphatase B-Type 6860 H Natriuretic Peptide Total Protein 6.6 Albumin 3.8 Globulin 2.80 Albumin/Globulin 1.35 Ratio Test 11/26/18 04:54 11/26/18 05:02 11/26/18 08:00 11/26/18 08:26 Bedside Glucose 123 Lab Scanned BLOOD TRANSFUSIO Report N Blood Gas Blood arterial Specimen Source Arterial Blood 11/26/2018 8:25:14 Date Drawn AM Arterial Blood 7.119 *L pH (Temp corrected) Arterial Blood 54.0 H pCO2 (Temp correct) Arterial Blood 106.8 H pO2 (Temp corrected) Arterial Blood 17.1 L HCO3 Arterial Blood -12.2 L Base Excess Arterial Blood 97.3 Oxygen Saturatio n Rei Test ACCEPTAB Arterial Blood Right Radial Gas Puncture Site Arterial 0.5 Blood Carboxyhem oglobin Arterial Blood 0 Methemoglobin Blood Gas A-a O2 87.2 H Differential Oxyhemoglobin 96.8 Percent Blood Gas 37.0 Temperature Blood Gas NASAL CANNULA Modality FiO2 36.0 Blood Gas SAIRA BARCENAS Critical Value Read Back Blood Gas TM Notified Whom Blood Gas 11/26/2018 8:34:11 Notified Time AM Uric Acid 4.2 Hepatitis B NEGATIVE Surface Antigen Hepatitis B Core NEGATIVE Total Antibody Hepatitis C NEGATIVE Antibody HIV (1&2) NEGATIVE Antibody Test 11/26/18 08:30 Urine Color RED Urine Clarity TURBID A Urine pH 8.0 Urine Specific 1.017 [place] Urine Ketones NEGATIVE Urine Nitrite NEGATIVE Urine Bilirubin NEGATIVE Urine NEGATIVE Urobilinogen Urine Leukocyte 2+ H Esterase Urine > 182 H Microscopic RBC Urine > 182 H Microscopic WBC Urine Squamous FEW Epithelial Cells Urine Bacteria MANY A Urine Hemoglobin 3+ H Urine Glucose NEGATIVE Urine Total 3+ H Protein HPI/ROS Admit Date/Time Admit Date/Time Nov 25, 2018 at 17:12 Hx of Present Illness The patient is a 88-year-old female with history of congestive heart failure, chronic kidney disease stage III, aortic stenosis, COPD, hypertension, hyperlipidemia, anemia, hypothyroidism, gout and depression. Patient was broug ht from [facility] for shortness of breath and increased bilateral lower extremities edema. Chest x-ray will revealed increased interstitial edema suggesting cardiopulmonary congestion and trace bilateral pleural effusions. Patient was placed on BiPAP. Patient noted to be hypotensive and bradycardic and was placed on dopamine drip. Patient also had increased BUN and creatinine and elevated potassium. Patient was admitted to intensive care unit for further management. ROS 12 point review of system is negative except for what mentioned in HPI PMH/Family/Social Past Medical History Per HPI Medical History: congestive heart failure, high cholesterol, hypertension, hypothyroid, renal disease Medications Current Medications Ondansetron HCl (Zofran Inj) 4 mg ER BRIDGE PRN IV NAUSEA AND/OR VOMITING Last administered on 11/25/18at 19:20; Admin Dose 4 MG; Start 11/25/18 at 17:30; Stop 11/26/18 at 17:29 Ceftriaxone Sodium 50 ml @ 100 mls/hr Q24H IVPB ; Start 11/26/18 at 18:00 Albuterol/ Ipratropium (Duoneb) 3 ml Q6HWA RESP THERAPY HHN Last administered on 11/26/18at 08:48; Admin Dose 3 ML; Start 11/26/18 at 08:00 Methylprednisolone Sodium Succinate (Solu-Medrol) 40 mg Q12 IV Last administered on 11/26/18at 09:04; Admin Dose 40 MG; Start 11/25/18 at 22:30 Acetaminophen (Tylenol Tab) 500 mg Q6H PRN PO MILD PAIN(1-3)OR ELEVATED TEMP; Start 11/25/18 at 22:30 Dopamine HCl/ Dextrose 250 ml @ 5.91 mls/hr TITRATE IV Last administered on 11/26/18at 08:07; Admin Dose 17.73 MLS/HR; Start 11/26/18 at 02:30 Sodium Bicarbonate 100 meq/Dextrose 1,000 ml @ 70 mls/hr [id number] IV Last administered on 11/26/18at 09:30; Admin Dose 70 MLS/HR; Start 11/26/18 at 09:30 Furosemide (Lasix) 20 mg ONCE IV Last administered on 11/26/18at 10:32; Admin Dose 20 MG; Start 11/26/18 at 09:00; Stop 11/26/18 at 13:00 Coded Allergies: aspirin (Verified Allergy, Unknown, 11/25/18) Past Surgical History Past Surgical Hx: other (Status post right ankle surgery, status post appendectomy, status post cholecystectomy) Family History Significant Family History: other (Coronary artery disease) Social History Alcohol Use: none Smoking Status: Never smoker Drug Use: none Exam/Review of Systems Vital Signs Vitals Vital Signs Date Temp Pulse Resp B/P (MAP) Pulse Ox O2 O2 Flow FiO2 Time Delivery Rate 11/26/18 52 18 120/41 97 Nasal 09:00 (67) Cannula 11/26/18 3.0 08:49 11/26/18 97.3 08:00 Intake and Output 11/25/18 11/25/18 11/26/18 1515:00 23:00 07:00 IntakeIntake Total 2605 ml 85.22 ml OutputOutput Total 0 ml BalanceBalance 2605 ml 85.22 ml Exam Constitutional: frail Head: normocephalic Eyes: nl conjunctiva ENMT: nl external ears & nose Neck: supple Respiratory: diminished breath sounds Cardiovascular: regular rate and rhythm Gastrointestinal: soft, non-tender Extremities: normal pulses, edema 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: lethargic EDWAR VARGAS Nov 26, 2018 11:24
[2018-11-26] MEDS ORDERED: HEPARIN 1000 UNITS/ML 10 ML INJ CATHETER SCH (14:00)
[2018-11-26] MEDS ORDERED: SODIUM CHLORIDE 0.9% 1L BAG IV PRN (14:00)
[2018-11-26] MEDS ORDERED: MANNITOL 25% 50 ML IV PRN (14:00)
[2018-11-26] MEDS ORDERED: MANNITOL 20% 62.5 ML IV PRN (18:30)
--- NOTE | 2018-11-26 18:55 | OPR ---
DATE OF OPERATION: PREOPERATIVE DIAGNOSIS: Renal failure. POSTOPERATIVE DIAGNOSIS: Renal failure. PROCEDURE: Right femoral hemodialysis catheter placement. SURGEON: Aubrey Olson MD ANESTHESIA: Local. CONSENT: Risks, benefits, complications, alternative therapies explained to the [facility], consent obtained. OPERATIVE TECHNIQUE: The patient was placed in supine position, prepped and draped in usual sterile fashion. Lidocaine 1% was used throughout the operation for local anesthesia. Access was gained in the right femoral vein. Guidewire was advanced through without any difficulty. Subcutaneous tissues were dilated. A 20 cm dialysis catheter was advanced over the guidewire, secured to skin using silk sutures. Both ports of the catheter were aspirated and injected using saline solution. Patient michelle erated procedure well. Dictated By: AUBREY OLSON MD FM/NTS Conf#: [id number] DID#: [id number] CC: LOREN ROSE MD;*EndCC*
--- NOTE | 2018-11-26 19:20 | CONS ---
DATE OF ADMISSION: 11/26/2018 DATE OF CONSULTATION: 11/26/2018 REASON FOR CONSULTATION: Congestive heart failure exacerbation. REQUESTING PHYSICIAN: Loren Rose MD HISTORY OF PRESENT ILLNESS: Ms. Simon is an 88-year-old female with a history of congestive heart f ailure, diastolic by previous echo September 2018 revealing EF of 60% to 65%, dyslipidemia, chronic ki dney disease not on hemodialysis, moderate by previous echo, hypertension, who presented with wors ening shortness of breath. Initially upon arrival on 11/25/2018, temperature of 98.2, blood pressure 75/41, pulse 40, respirations 20, O2 sat 92%. The patient's labs showed white blood cell count 11.4 , hemoglobin 7.9, platelet count of 160. Sodium 129, potassium 5.9, creatinine 5.5, BUN 107. UA pos itive. The patient underwent a chest x-ray revealing a large cardiac silhouette and aortic sclerosis . No evidence of acute cardiopulmonary disease. The patient's electrocardiogram revealed sinus davina ycardia, rate of 53, sinus arrhythmia, normal axis, normal intervals, nonspecific ST and T abnormalit ies diffusely. The patient subsequently required initiation of BiPAP and admitted to the ICU where s he remains at this time with altered mental state. PAST MEDICAL HISTORY: As above in HPI. MEDICATIONS CURRENTLY IN HOSPITAL: Ceftriaxone, bicarbonate, Lasix 20 mg IV once, DuoNeb, dopamine, Solu-Medrol 40 mg IV q.12 hours, Tylenol p.r.n., Zofran p.r.n. ALLERGIES: ASPIRIN. SOCIAL HISTORY: No current tobacco, ETOH or illicit drug use. FAMILY HISTORY: No sudden cardiac or early CAD. REVIEW OF SYSTEMS: As above in HPI. CONSTITUTIONAL: No fevers, chills. PULMONARY: Respiratory failure, on BiPAP. GASTROINTESTINAL: No vomiting. GENITOURINARY: No hematuria. MUSCULOSKELETAL: Degenerative joint disease. PSYCHIATRIC: . NEUROLOGIC: Altered mental state. CARDIOVASCULAR: Hypotension, congestive heart failure. PHYSICAL EXAMINATION: VITAL SIGNS: Temperature of 97.3, blood pressure 120/44, pulse 54, respirations 23, satting 98%. GENERAL: The patient is on BiPAP with altered mental state. NECK: JVP approximately 9 to 10 cm water. CHEST: Upper extremities are rhonchorous sounds. HEART: Bradycardic, regular rhythm, normal S1, S2, I/ systolic murmur, nondisplaced PMI. ABDOMEN: Positive bowel sounds, soft. EXTREMITIES: No significant pitting edema, 1+ pulses bilateral posterior tibial. LABORATORY DATA: Most recently from today, white blood cell count of 10.2, hemoglobin 10.8, platelet count 188. Sodium 129, potassium 5.9, creatinine 5.5, BUN 107. INR 0.9. ABG revealing a pH of 7.1 19, a PaO2 of 106, a pCO2 of 54. UA positive. IMAGING STUDIES: As above in HPI. No further imaging studies for my review at this time. ELECTROCARDIOGRAM: Reveals sinus bradycardia, rate of 53 with sinus arrhythmia, low voltage QRS, non specific ST abnormalities. IMPRESSION: 1. Shock, on dopamine pressor support at this time with previously preserved EF by most recent echo September 2018 of 60% to 65%. 2. Abnormal echocardiogram, assess for acute coronary syndrome. 3. Congestive heart failure, diastolic, acute on chronic, in the setting of renal failure. 4. Renal failure. 5. Anemia, status post transfusions. 6. Hyponatremia. 7. Urinary tract infection. RECOMMENDATIONS: 1. At this time, would maintain patient in ICU on close monitoring to follow rhythm and rate control closely. 2. Would continue the patient's broad-spectrum antibiotics following culture data closely and contin ue the patient's steroids and bronchodilators. 3. The patient was consulted by nephrology services and for hemodialysis, which the patient wi ll require and benefit significantly from. 4. Will also continue the patient's gentle Lasix diuresis. Follow volume status closely. 5. Continue to follow the patient's potassium closely. 6. Additionally, complete a rule out for myocardial infarction to ensure the patient's cause of symp toms are not result of an acute coronary syndrome. Thank you for allowing me to take part in the care of this patient. I will continue to follow along very closely with you with further recommendations to be made as the patient progresses through his [facility] clinical course. Dictated By: ALVINA PALMER/ELISEO Conf#: [id number] DID#: [id number] CC: LOREN ROSE MD;*EndCC*
--- NOTE | 2018-11-26 19:34 | CONS ---
DATE OF ADMISSION: 11/26/2018 DATE OF CONSULTATION: REASON FOR CONSULTATION: Shortness of breath. Thank you, Dr. Olivier, for this consultation. HISTORY OF PRESENT ILLNESS: This is an 88-year-old lady who came in with increased shortness of elida th, orthopnea, PND, altered mental status, found to have bradycardia requiring initiation of dopamine and significant mixed acidosis. The patient is nonverbal, unable to give me further details. PAST MEDICAL HISTORY: Chronic anemia, atrial fibrillation, possible coronary artery disease. MEDICATIONS: Per chart. ALLERGIES: ASPIRIN. SOCIAL HISTORY: Nonsmoker, no alcohol, no history of drug use. FAMILY HISTORY: Noncontributory. SYSTEMS REVIEW: A 12-point review of systems currently unable to perform. PHYSICAL EXAMINATION: GENERAL: Chronically ill appearing lady, somnolent but arousable. VITAL SIGNS: Currently afebrile, pulse is 63, blood pressure 109/84, O2 saturation 96% on 3 L nasal cannula. NECK: Supple. No JVD or lymphadenopathy. CARDIAC: S1, S2, no added sounds or murmurs. CHEST: Diminished air entry bilaterally. ABDOMEN: Soft, nontender. No guarding or rebound. EXTREMITIES: No cyanosis, clubbing, 1+ edema. NEUROLOGIC: Generalized weakness. LABORATORY DATA: Show BUN of 98, creatinine 5.5, potassium 5.7. White count 10, hemoglobin 10.8. I nitial arterial blood gas was pH 7.11, pCO2 54, pO2 of 106, bicarbonate was 17. DIAGNOSTIC DATA: Chest x-ray showed pulmonary edema. Renal ultrasound showed no hydronephrosis. IMPRESSION AND PLAN: 1. Acute encephalopathy, likely secondary to significant electrolyte abnormalities with acute renal failure. 2. Acute renal failure, etiology unclear. Does not appear to be prerenal. However, may be related to significant bradycardia. 3. Significant bradycardia likely secondary to hyperkalemia from acute renal failure. 4. History of atrial fibrillation. The patient will require: 1. Correction of electrolyte abnormalities with emergent hemodialysis. 2. Intravenous bicarbonate. 3. Transient noninvasive positive pressure ventilation with need for possible intubation if this hemalatha ls. 4. Discussed with family code status and goals of care. Dictated By: REZA COLLINS MD SV/ELISEO Conf#: [id number] DID#: [id number] CC: LOREN OLIVIER MD;*End*
--- NOTE | 2018-11-26 19:39 | RADRPT ---
Vent Rate: 53 bpm RR Interval: 0 msec MS Interval: 190 msec QRS Duration: 98 msec QT Interval: 448 msec QTC Interval: 420 msec P-R-T [place]: 39 - 13 - 20 degrees Sinus bradycardia with sinus arrhythmia Low voltage QRS Borderline ECG Electronically Signed By: Oswaldo Ellis [id number]
[2018-11-26] MEDS: CEFTRIAXONE 1 GM/50 ML (PMX) 50 ML IVPB SCH (21:04)
[2018-11-26] MEDS: HEPARIN 5,000 UNIT/1 ML VIAL SC SCH (21:09)
[2018-11-26] MEDS ORDERED: VANCOMYCIN IV PER PHARMACY XX SCH (23:30)
[2018-11-27] VITALS (91 sets, daily range): BP systolic 88–152; BP diastolic 34–121; PULSE 56–84; RESP 10–27
[2018-11-27] MEDS ORDERED: VANCOMYCIN 1.5 GM in SOD CHLORIDE 0.9% 250 ML IVPB SCH (01:00)
[2018-11-27] MEDS: DOPamine-D5W 1.6 MG/ML 250 ML IV SCH (01:16)
--- NOTE | 2018-11-27 07:43 | PN ---
DATE: 11/26/2018 ADDENDUM I met with patient's daughter, America, and updated her regarding patient's critical condition. The p atient has acute respiratory failure and acute on chronic renal failure. The patient needs hemodialy sis. Code status discussed with her. The patient had expressed her wishes in the POLST that she did not want to be resuscitated; therefore, will keep the patient DNR. The patient was seen by Dr. Meño willett and recommended hemodialysis. I spoke with patient's family and further goals of care discussed with them. Both daughters requested that patient be given a trial of hemodialysis to see if she can improve. They do agree with the patient's wishes to keep her as DNR. I showed them a copy of the P OLST signed by the patient at the intermediate facility. Total approximately 30 minutes spent. Dictated By: LOREN LATHAM/ELISEO Conf#: [id number] DID#: [id number]
[2018-11-27] MEDS: ALBUTEROL/IPRATROPIUM (NEB) 3 ML AMP HHN SCH ×3 (08:19→19:19)
[2018-11-27] MEDS: SODIUM BICARBONATE (IV ADD) 100 MEQ in DEXTROSE 5% 900 ML IV SCH ×2 (09:15→21:27)
[2018-11-27] MEDS ORDERED: HEPARIN 1000 UNITS/ML 10 ML INJ CATHETER ONE (10:00)
[2018-11-27] MEDS: METHYLPREDNISOLONE 40 MG INJ IV SCH ×2 (10:50→21:22)
[2018-11-27] MEDS: HEPARIN 5,000 UNIT/1 ML VIAL SC SCH ×2 (10:54→21:23)
--- NOTE | 2018-11-27 12:14 | CONS ---
Date/Time of Note Date/Time of Note DATE: 11/27/18 TIME: 12:00 Consult Date/Type/Reason Admit Date/Time Nov 26, 2018 at 11:28 Initial Consult Date 11/26/18 Type of Consultation: Pulmonary ICU Requesting Provider: LOREN ROSE MD Subjective Patient continues nasal cannula having hemodialysis this morning. Off dopamine currently no hemodynamic instability. No bradycardia. Objective Vital Signs Date Temp Pulse Resp B/P (MAP) Pulse Ox O2 O2 Flow FiO2 Time Delivery Rate 11/27/18 71 10:25 11/27/18 16 140/60 09:30 (86) 11/27/18 98 Nasal 3.0 09:00 Cannula 11/27/18 32 08:22 11/27/18 97.5 08:00 Intake and Output 11/26/18 11/26/18 11/27/18 1414:59 22:59 06:59 IntakeIntake Total 574.49 ml 871.390 ml 820.685 ml OutputOutput Total 45 ml 0 ml 0 ml BalanceBalance 529.49 ml 871.390 ml 820.685 ml Exam PHYSICAL EXAMINATION: GENERAL: Chronically ill appearing lady, somnolent but arousable. VITAL SIGNS: Elderly appearing lady somnolent NECK: Supple. No JVD or lymphadenopathy. CARDIAC: S1, S2, no added sounds or murmurs. CHEST: Diminished air entry bilaterally. ABDOMEN: Soft, nontender. No guarding or rebound. EXTREMITIES: No cyanosis, clubbing, 1+ edema. NEUROLOGIC: Generalized weakness. Results/Medications Result Diagram: 11/27/18 0425 11/27/18 0425 Results 24 hrs Laboratory Tests Test 11/26/18 12:45 11/26/18 13:00 11/26/18 14:48 11/26/18 19:00 Urine 0.0 Eosinophils % Urine Random 88.24 Creatinine Urine Random 37 Sodium Urine 4.75 Protein/Creatini ne Ratio Urine Total 420.0 H Protein Blood Gas Blood arterial Blood arterial Specimen Source Arterial Blood 11/26/2018 2:36:17 11/26/2018 8:00:56 Date Drawn PM PM Arterial Blood 7.091 *L 7.178 *L pH (Temp corrected) Arterial Blood 64.2 H 80.0 H pCO2 (Temp correct) Arterial Blood 81.9 103.6 H pO2 (Temp corrected) Arterial Blood 19.1 L 29.1 H HCO3 Arterial Blood -11.1 L -1.1 Base Excess Arterial Blood 94.7 L 97.2 Oxygen Saturatio n Rei Test ACCEPTAB ACCEPTAB Arterial Blood Right Radial Right Radial Gas Puncture Site Arterial 0.3 0.6 Blood Carboxyhem oglobin Arterial Blood 0 0.1 Methemoglobin Blood Gas A-a O2 202.4 H 162.9 H Differential Oxyhemoglobin 94.4 96.5 Percent Blood Gas 37.0 37.0 Temperature Blood Gas 20.0 24.0 Respiration Rate Blood Gas Actual 21 24 Respiration Rate Blood Gas MASK - BIPAP MASK - BIPAP Modality FiO2 50.0 50.0 Blood Gas 10 Pressure Support Blood Gas 16 20/8 IPAP/EPAP Ratio Blood Gas SAIRA CALVIN RN Critical Value Read Back Blood Gas TM MM Notified Whom Blood Gas 11/26/2018 2:48:19 11/26/2018 8:13:44 Notified Time PM PM Sodium Level 132 L Potassium Level 6.2 *H Chloride Level 97 Carbon Dioxide 17 L Level Anion Gap 18 H Blood Urea 99 H Nitrogen Creatinine 5.85 H Est Glomerular Filtrat Rate mL/min Glucose Level 150 Calcium Level 8.2 L Test 11/27/18 04:25 11/27/18 11:00 White Blood 10.6 Count Red Blood Count 3.18 L Hemoglobin 9.7 L Hematocrit 29.0 L Mean Corpuscular 91.2 Volume Mean Corpuscular 30.5 Hemoglobin Mean Corpuscular 33.4 Hemoglobin Jessy nt Red Cell 16.0 H Distribution Width Platelet Count 152 Mean Platelet 10.6 H Volume Immature 0.800 H Granulocytes % Neutrophils % Segmented 81 H Neutrophils % (Manual) Band Neutrophils 17 H % (Manual) Lymphocytes % Monocytes % Monocytes % 2 (Manual) Eosinophils % Basophils % Nucleated Red 3 H Blood Cells % Immature 0.090 H Granulocytes # Neutrophils # Neutrophils # 8.8 H (Manual) Band Neutrophils 1.8 H # Lymphocytes # Monocytes # Monocytes # 0.2 L (Manual) Eosinophils # Basophils # Nucleated Red Blood Cells # Platelet NORMAL Estimate Giant Platelets 1 H Poikilocytosis 2+ Anisocytosis 1+ Macrocytosis 1+ Ovalocytes 1+ Sodium Level 134 L Potassium Level 4.7 Chloride Level 95 L Carbon Dioxide 28 # Level Anion Gap 11 # Blood Urea 53 #H Nitrogen Creatinine 3.66 #H Est Glomerular Filtrat Rate mL/min Glucose Level 111 Calcium Level 7.7 L Blood Gas Blood arterial Specimen Source Arterial Blood 11/27/2018 10:55:4 Date Drawn 5 AM Arterial Blood 7.308 L pH (Temp corrected) Arterial Blood 62.0 H pCO2 (Temp correct) Arterial Blood 118.6 H pO2 (Temp corrected) Arterial Blood 30.4 H HCO3 Arterial Blood 3.0 Base Excess Arterial Blood 97.8 Oxygen Saturatio n Rei Test ACCEPTAB Arterial Blood Right Radial Gas Puncture Site Arterial 0.4 Blood Carboxyhem oglobin Arterial Blood 0 Methemoglobin Blood Gas A-a O2 66.2 H Differential Oxyhemoglobin 97.4 Percent Blood Gas 37.0 Temperature Blood Gas NASAL CANNULA Modality FiO2 36.0 Blood Gas TM Notified Whom Blood Gas 11/27/2018 11:03:1 Notified Time 7 AM Medications Current Medications Ceftriaxone Sodium 50 ml @ 100 mls/hr Q24H IVPB Last administered on 11/26/18at 21:04; Admin Dose 100 MLS/HR; Start 11/26/18 at 18:00 Albuterol/ Ipratropium (Duoneb) 3 ml Q6HWA RESP THERAPY HHN Last administered on 11/27/18 08:19; Admin Dose 3 ML; Start 11/26/18 at 08:00 Methylprednisolone Sodium Succinate (Solu-Medrol) 40 mg Q12 IV Last adm inistered on 11/27/18at 10:50; Admin Dose 40 MG; Start 11/25/18 at 22:30 Acetaminophen (Tylenol Tab) 500 mg Q6H PRN PO MILD PAIN(1-3)OR ELEVATED TEMP; Start 11/25/18 at 22:30 Dopamine HCl/ Dextrose 250 ml @ 5.91 mls/hr TITRATE IV Last administered on 11/27/18 01:16; Admin Dose 2.955 MLS/HR; Start 11/26/18 at 02:30 Sodium Bicarbonate 100 meq/Dextrose 1,000 ml @ 100 mls/hr Q10H IV Last administered on 11/27/18 09:15; Admin Dose 100 MLS/HR; Start 11/26/18 at 09:30 Heparin Sodium (Porcine) (Heparin (5000 Units/1ml)) 5,000 unit BID SC Last administered on 11/27/18at 10:54; Admin Dose 5,000 UNIT; Start 11/26/18 at 21:00 Albumin Human 50 ml @ 100 mls/hr WITH DIALYSIS PRN IV SBP lower than 90 mm Hg ; Start 11/26/18 at 14:00 Sodium Chloride (NS) -To prime the dialy... DIRECTED FOR HD PRN IV SBP lower than 90 mm Hg ; Start 11/26/18 at 14:00 IV Flush (NS 10 ml) 10 ml PRN PRN IV IV PROTOCOL; Start 11/26/18 at 14:30 Mannitol 62.5 ml @ 750 mls/hr WITH DIALYSIS PRN IV for uremic encephalopathy ; Start 11/26/18 at 18:30 Vancomycin HCl (Vanco Iv Per Pharmacy) VANCOMYCIN PER PHARMACY PER PROTOCOL XX ; Start 11/26/18 at 23:30 Assessment/Plan Chief Complaint/Hosp Course IMPRESSION 1. Acute encephalopathy, likely secondary to significant electrolyte abnormalities with acute renal failure. 2. Acute renal failure, etiology unclear. Does not appear to be prerenal. However, may be related to significant bradycardia. 3. Significant bradycardia likely secondary to hyperkalemia from acute renal failure. 4. History of atrial fibrillation. Plan 1. Correction of electrolyte abnormalities with emergent hemodialysis. 2. IV fluids per nephrology 3. Aspiration precautions 4. Discussed with family code status and goals of care. CC 40 mins RE[facility] COLLINS MD, [facility] Nov 27, 2018 12:14
--- NOTE | 2018-11-27 13:58 | CONS ---
Date/Time of Note Date/Time of Note DATE: 11/27/18 TIME: 13:53 Assessment/Plan Assessment/Plan Hospital Course IMPRESSION: 1. Shock, on dopamine pressor support at this time with previously preserved EF by most recent echo September 2018 of 60% to 65%.-improved off dopamine 2. Abnormal echocardiogram, assess for acute coronary syndrome. 3. Congestive heart failure, diastolic, acute on chronic, in the setting of renal failure. 4. Renal failure. 5. Anemia, status post transfusions. 6. Hyponatremia. 7. Urinary tract infection. REcc: -ICU -follow BP closely -Continue abx's and f/u cx data -Follow volume status clsoely -Follow for recurrent bradycardia -Continue steroids/bronchodilators -check TSH Result Diagram: 11/27/18 0425 11/27/18 0425 Results 24hrs Laboratory Tests Test 11/26/18 14:48 11/26/18 19:00 11/27/18 04:25 11/27/18 11:00 Sodium Level 132 L 134 L Potassium Level 6.2 *H 4.7 Chloride Level 97 95 L Carbon Dioxide 17 L 28 # Level Anion Gap 18 H 11 # Blood Urea 99 H 53 #H Nitrogen Creatinine 5.85 H 3.66 #H Est Glomerular Filtrat Rate mL/min Glucose Level 150 111 Calcium Level 8.2 L 7.7 L Blood Gas Blood arterial Blood arterial Specimen Source Arterial Blood 11/26/2018 8:00:56 11/27/2018 10:55:4 Date Drawn PM 5 AM Arterial Blood 7.178 *L 7.308 L pH (Temp corrected) Arterial Blood 80.0 H 62.0 H pCO2 (Temp correct) Arterial Blood 103.6 H 118.6 H pO2 (Temp corrected) Arterial Blood 29.1 H 30.4 H HCO3 Arterial Blood -1.1 3.0 Base Excess Arterial Blood 97.2 97.8 Oxygen Saturatio n Rei Test ACCEPTAB ACCEPTAB Arterial Blood Right Radial Right Radial Gas Puncture Site Arterial 0.6 0.4 Blood Carboxyhem oglobin Arterial Blood 0.1 0 Methemoglobin Blood Gas A-a O2 162.9 H 66.2 H Differential Oxyhemoglobin 96.5 97.4 Percent Blood Gas 37.0 37.0 Temperature Blood Gas 24.0 Respiration Rate Blood Gas Actual 24 Respiration Rate Blood Gas MASK - BIPAP NASAL CANNULA Modality FiO2 50.0 36.0 Blood Gas 20/8 IPAP/EPAP Ratio Blood Gas NARINDER CALVIN Critical Value Read Back Blood Gas MM TM Notified Whom Blood Gas 11/26/2018 8:13:44 11/27/2018 11:03:1 Notified Time PM 7 AM White Blood 10.6 Count Red Blood Count 3.18 L Hemoglobin 9.7 L Hematocrit 29.0 L Mean Corpuscular 91.2 Volume Mean Corpuscular 30.5 Hemoglobin Mean Corpuscular 33.4 Hemoglobin Jessy nt Red Cell 16.0 H Distribution Width Platelet Count 152 Mean Platelet 10.6 H Volume Immature 0.800 H Granulocytes % Neutrophils % Segmented 81 H Neutrophils % (Manual) Band Neutrophils 17 H % (Manual) Lymphocytes % Monocytes % Monocytes % 2 (Manual) Eosinophils % Basophils % Nucleated Red 3 H Blood Cells % Immature 0.090 H Granulocytes # Neutrophils # Neutrophils # 8.8 H (Manual) Band Neutrophils 1.8 H # Lymphocytes # Monocytes # Monocytes # 0.2 L (Manual) Eosinophils # Basophils # Nucleated Red Blood Cells # Platelet NORMAL Estimate Giant Platelets 1 H Poikilocytosis 2+ Anisocytosis 1+ Macrocytosis 1+ Ovalocytes 1+ Consultation Date/Type/Reason Admit Date/Time Nov 26, 2018 at 11:28 Initial Consult Date 11/26/18 Type of Consult cardiology Reason for Consultation hypotension Requesting Provider: LOREN ROSE MD Exam/Review of Systems Vital Signs Vitals Vital Signs Date Temp Pulse Resp B/P (MAP) Pulse Ox O2 O2 Flow FiO2 Time Delivery Rate 11/27/18 75 13 105/46 Nasal 13:00 (65) Cannula 11/27/18 97 12:45 11/27/18 98.5 12:00 11/27/18 3.0 09:00 11/27/18 32 08:22 Intake and Output 11/26/18 11/26/18 11/27/18 1515:00 23:00 07:00 IntakeIntake Total 646.19 ml 892.255 ml 811.820 ml OutputOutput Total 45 ml 0 ml 0 ml BalanceBalance 601.19 ml 892.255 ml 811.820 ml Exam Review of Systems: CONSTITUTIONAL: No fevers, chills. PULMONARY: No sob CARDIOVASCULAR: No chest pain/palpitations GASTROINTESTINAL: No nausea/vomiting. GENITOURINARY: No hematuria/dysuria. MUSCULOSKELETAL: No myagias/arthalgias. PSYCHIATRIC: The patient denies depression. NEUROLOGIC: No weakness Constitutional: alert Psych: no complaints Head: normocephalic ENMT: mucosa pink and moist Neck: supple, jvd (9-10 cm water) Respiratory: diminished breath sounds Cardiovascular: regular rate and rhythm Gastrointestinal: soft, non-tender Musculoskeletal: muscle weakness (generalized) Extremities: edema (trace/B) 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: other (No focal deficits) Medications Medications Current Medications Ceftriaxone Sodium 50 ml @ 100 mls/hr Q24H IVPB Last administered on 11/26/18at 21:04; Admin Dose 100 MLS/HR; Start 11/26/18 at 18:00 Albuterol/ Ipratropium (Duoneb) 3 ml Q6HWA RESP THERAPY HHN Last administered on 11/27/18at 08:19; Admin Dose 3 ML; Start 11/26/18 at 08:00 Methylprednisolone Sodium Succinate (Solu-Medrol) 40 mg Q12 IV Last admi nistered on 11/27/18at 10:50; Admin Dose 40 MG; Start 11/25/18 at 22:30 Acetaminophen (Tylenol Tab) 500 mg Q6H PRN PO MILD PAIN(1-3)OR ELEVATED TEMP; Start 11/25/18 at 22:30 Dopamine HCl/ Dextrose 250 ml @ 5.91 mls/hr TITRATE IV Last administered on 11/27/18at 01:16; Admin Dose 2.955 MLS/HR; Start 11/26/18 at 02:30 Sodium Bicarbonate 100 meq/Dextrose 1,000 ml @ 100 mls/hr Q10H IV Last administered on 11/27/18at 09:15; Admin Dose 100 MLS/HR; Start 11/26/18 at 09:30 Heparin Sodium (Porcine) (Heparin (5000 Units/1ml)) 5,000 unit BID SC Last administered on 11/27/18at 10:54; Admin Dose 5,000 UNIT; Start 11/26/18 at 21:00 Albumin Human 50 ml @ 100 mls/hr WITH DIALYSIS PRN IV SBP lower than 90 mm Hg ; Start 11/26/18 at 14:00 Sodium Chloride (NS) -To prime the dialy... DIRECTED FOR HD PRN IV SBP lower than 90 mm Hg ; Start 11/26/18 at 14:00 IV Flush (NS 10 ml) 10 ml PRN PRN IV IV PROTOCOL; Start 11/26/18 at 14:30 Mannitol 62.5 ml @ 750 mls/hr WITH DIALYSIS PRN IV for uremic encephalopathy ; Start 11/26/18 at 18:30 Vancomycin HCl (Vanco Iv Per Pharmacy) VANCOMYCIN PER PHARMACY PER PROTOCOL XX ; Start 11/26/18 at 23:30 ALVINA GARICA Nov 27, 2018 13:58
--- NOTE | 2018-11-27 16:35 | PN ---
Date/Time of Note Date/Time of Note DATE: 11/27/18 TIME: 16:34 Assessment/Plan VTE Prophylaxis Risk score (from Ns)>0 risk: 8 SCD applied (from [facility]): Yes Pharmacological prophylaxis: other Lines/Catheters IV Catheter Type (from [facility]): PICC Line Central line still needed: Yes Urinary Cath still in place: Yes Reason Cath still needed: urinary retention Assessment/Plan Assessment/Plan -Acute respiratory failure requiring BiPAP. Dr. Garcia is following in pulmonology consultation. -Cardiogenic versus septic shock. Patient is currently on dopamine for blood pressure support. -Acute on chronic systolic and diastolic congestive heart failure. Dr. Iraheta is asked to see patient in cardiology consultation. -ARF on CKD. Dr Hill is following in nephrology consultation. -Pulmonary edema -Possible pneumonia -DNR status Total critical care time spent is 35 mins.Further recommendations based on clinical course. Plan of care discussed with Dr. Olivier. Result Diagram: 11/27/18 0425 11/27/18 0425 Results 24hrs Laboratory Tests Test 11/26/18 19:00 11/27/18 04:25 11/27/18 11:00 Blood Gas Specimen Blood arterial Blood arterial Source Arterial Blood Date 11/26/2018 8:00:56 PM 11/27/2018 10:55:45 AM Drawn Arterial Blood pH 7.178 *L 7.308 L (Temp corrected) Arterial Blood pCO2 80.0 H 62.0 H (Temp correct) Arterial Blood pO2 103.6 H 118.6 H (Temp corrected) Arterial Blood HCO3 29.1 H 30.4 H Arterial Blood Base -1.1 3.0 Excess Arterial Blood 97.2 97.8 Oxygen Saturation Rei Test ACCEPTAB ACCEPTAB Arterial Blood Gas Right Radial Right Radial Puncture Site Arterial 0.6 0.4 Blood Carboxyhemoglobin Arterial Blood 0.1 0 Methemoglobin Blood Gas A-a O2 162.9 H 66.2 H Differential Oxyhemoglobin Percent 96.5 97.4 Blood Gas Temperature 37.0 37.0 Blood Gas Respiration 24.0 Rate Blood Gas Actual 24 Respiration Rate Blood Gas Modality MASK - BIPAP NASAL CANNULA FiO2 50.0 36.0 Blood Gas IPAP/EPAP 20/8 Ratio Blood Gas Critical NARINDER CALVIN Value Read Back Blood Gas Notified Whom MM TM Blood Gas Notified 11/26/2018 8:13:44 PM 11/27/2018 11:03:17 AM Time White Blood Count 10.6 Red Blood Count 3.18 L Hemoglobin 9.7 L Hematocrit 29.0 L Mean Corpuscular Volume 91.2 Mean Corpuscular 30.5 Hemoglobin Mean Corpuscular 33.4 Hemoglobin Concent Red Cell Distribution 16.0 H Width Platelet Count 152 Mean Platelet Volume 10.6 H Immature Granulocytes % 0.800 H Neutrophils % Segmented Neutrophils 81 H % (Manual) Band Neutrophils % 17 H (Manual) Lymphocytes % Monocytes % Monocytes % (Manual) 2 Eosinophils % Basophils % Nucleated Red Blood 3 H Cells % Immature Granulocytes # 0.090 H Neutrophils # Neutrophils # (Manual) 8.8 H Band Neutrophils # 1.8 H Lymphocytes # Monocytes # Monocytes # (Manual) 0.2 L Eosinophils # Basophils # Nucleated Red Blood Cells # Platelet Estimate NORMAL Giant Platelets 1 H Poikilocytosis 2+ Anisocytosis 1+ Macrocytosis 1+ Ovalocytes 1+ Sodium Level 134 L Potassium Level 4.7 Chloride Level 95 L Carbon Dioxide Level 28 # Anion Gap 11 # Blood Urea Nitrogen 53 #H Creatinine 3.66 #H Est Glomerular Filtrat Rate mL/min Glucose Level 111 Calcium Level 7.7 L Thyroid Stimulating 62.900 H Hormone (TSH) Exam/Review of Systems Vital Signs Vitals Vital Signs Date Temp Pulse Resp B/P (MAP) Pulse Ox O2 O2 Flow FiO2 Time Delivery Rate 11/27/18 78 15 98 Nasal 3.0 32 14:28 Cannula 11/27/18 105/46 13:00 (65) 11/27/18 98.5 12:00 Intake and Output 11/26/18 11/26/18 11/27/18 1515:00 23:00 07:00 IntakeIntake Total 646.19 ml 892.255 ml 811.820 ml OutputOutput Total 45 ml 0 ml 0 ml BalanceBalance 601.19 ml 892.255 ml 811.820 ml Exam Constitutional: alert, non-verbal Eyes: nl lids, nl sclera ENMT: nl external ears & nose Neck: non-tender Medications Medications Current Medications Ceftriaxone Sodium 50 ml @ 100 mls/hr Q24H IVPB Last administered on 11/26/18at 21:04; Admin Dose 100 MLS/HR; Start 11/26/18 at 18:00 Albuterol/ Ipratropium (Duoneb) 3 ml Q6HWA RESP THERAPY HHN Last administered on 11/27/18at 14:27; Admin Dose 3 ML; Start 11/26/18 at 08:00 Methylprednisolone Sodium Succinate (Solu-Medrol) 40 mg Q12 IV Last administered on 11/27/18at 10:50; Admin Dose 40 MG; Start 11/25/18 at 22:30 Acetaminophen (Tylenol Tab) 500 mg Q6H PRN PO MILD PAIN(1-3)OR ELEVATED TEMP; Start 11/25/18 at 22:30 Dopamine HCl/ Dextrose 250 ml @ 5.91 mls/hr TITRATE IV Last administered on 11/27/18at 01:16; Admin Dose 2.955 MLS/HR; Start 11/26/18 at 02:30 Sodium Bicarbonate 100 meq/Dextrose 1,000 ml @ 100 mls/hr Q10H IV Last administered on 11/27/18at 09:15; Admin Dose 100 MLS/HR; Start 11/26/18 at 09:30 Heparin Sodium (Porcine) (Heparin (5000 Units/1ml)) 5,000 unit BID SC Last administered on 11/27/18at 10:54; Admin Dose 5,000 UNIT; Start 11/26/18 at 21:00 Albumin Human 50 ml @ 100 mls/hr WITH DIALYSIS PRN IV SBP lower than 90 mm Hg ; Start 11/26/18 at 14:00 Sodium Chloride (NS) -To prime the dialy... DIRECTED FOR HD PRN IV SBP lower than 90 mm Hg ; Start 11/26/18 at 14:00 IV Flush (NS 10 ml) 10 ml PRN PRN IV IV PROTOCOL; Start 11/26/18 at 14:30 Mannitol 62.5 ml @ 750 mls/hr WITH DIALYSIS PRN IV for uremic encephalopathy ; Start 11/26/18 at 18:30 Vancomycin HCl (Vanco Iv Per Pharmacy) VANCOMYCIN PER PHARMACY PER PROTOCOL XX ; Start 11/26/18 at 23:30 KATIE MENDEZ Nov 27, 2018 16:35
--- NOTE | 2018-11-27 17:15 | CONS ---
Date/Time of Note Date/Time of Note DATE: 11/27/18 TIME: 17:15 Assessment/Plan Assessment/Plan Assessment/Plan 1. Oliguric Acute kindey injury on CKD III due to ATN from septic shock, 2. Acute uremic encephalopathy 3. Acute hyperkalemia- resolved 4. Severe metabolic acidosis 5. Septic shock on pressors 2/2 UTI and bacteremia 6. acute hypoxemic respiraotry failure on BIPAP 7. acute on chronic,systolic and diastolic heart failure 8. H/o HTN 9. H/o COPD Plan: started on HD on 11/26/17- s/p HD x 2 hr yesterday, today Had a HD 1.6 L removed, plan for another HD tomorrow, BUN/Cr [facility] IV abx as per PMD, renally dose all abx and monitor electrolytes will follow up Result Diagram: 11/27/18 0425 11/27/18 0425 Results 24hrs Laboratory Tests Test 11/26/18 19:00 11/27/18 04:25 11/27/18 11:00 Blood Gas Specimen Blood arterial Blood arterial Source Arterial Blood Date 11/26/2018 8:00:56 PM 11/27/2018 10:55:45 AM Drawn Arterial Blood pH 7.178 *L 7.308 L (Temp corrected) Arterial Blood pCO2 80.0 H 62.0 H (Temp correct) Arterial Blood pO2 103.6 H 118.6 H (Temp corrected) Arterial Blood HCO3 29.1 H 30.4 H Arterial Blood Base -1.1 3.0 Excess Arterial Blood 97.2 97.8 Oxygen Saturation Rei Test ACCEPTAB ACCEPTAB Arterial Blood Gas Right Radial Right Radial Puncture Site Arterial 0.6 0.4 Blood Carboxyhemoglobin Arterial Blood 0.1 0 Methemoglobin Blood Gas A-a O2 162.9 H 66.2 H Differential Oxyhemoglobin Percent 96.5 97.4 Blood Gas Temperature 37.0 37.0 Blood Gas Respiration 24.0 Rate Blood Gas Actual 24 Respiration Rate Blood Gas Modality MASK - BIPAP NASAL CANNULA FiO2 50.0 36.0 Blood Gas IPAP/EPAP 20/8 Ratio Blood Gas Critical NARINDER CALVIN Value Read Back Blood Gas Notified Whom MM TM Blood Gas Notified 11/26/2018 8:13:44 PM 11/27/2018 11:03:17 AM Time White Blood Count 10.6 Red Blood Count 3.18 L Hemoglobin 9.7 L Hematocrit 29.0 L Mean Corpuscular Volume 91.2 Mean Corpuscular 30.5 Hemoglobin Mean Corpuscular 33.4 Hemoglobin Concent Red Cell Distribution 16.0 H Width Platelet Count 152 Mean Platelet Volume 10.6 H Immature Granulocytes % 0.800 H Neutrophils % Segmented Neutrophils 81 H % (Manual) Band Neutrophils % 17 H (Manual) Lymphocytes % Monocytes % Monocytes % (Manual) 2 Eosinophils % Basophils % Nucleated Red Blood 3 H Cells % Immature Granulocytes # 0.090 H Neutrophils # Neutrophils # (Manual) 8.8 H Band Neutrophils # 1.8 H Lymphocytes # Monocytes # Monocytes # (Manual) 0.2 L Eosinophils # Basophils # Nucleated Red Blood Cells # Platelet Estimate NORMAL Giant Platelets 1 H Poikilocytosis 2+ Anisocytosis 1+ Macrocytosis 1+ Ovalocytes 1+ Sodium Level 134 L Potassium Level 4.7 Chloride Level 95 L Carbon Dioxide Level 28 # Anion Gap 11 # Blood Urea Nitrogen 53 #H Creatinine 3.66 #H Est Glomerular Filtrat Rate mL/min Glucose Level 111 Calcium Level 7.7 L Thyroid Stimulating 62.900 H Hormone (TSH) Consultation Date/Type/Reason Admit Date/Time Nov 26, 2018 at 11:28 Initial Consult Date 11/26/18 Type of Consult NEPHROLOGY Requesting Provider: LOREN ROSE MD 24 HR Interval Summary Free Text/Dictation started on HD on 11/26/17- plan for HD tomorrow Exam/Review of Systems Vital Signs Vitals Vital Signs Date Temp Pulse Resp B/P (MAP) Pulse Ox O2 O2 Flow FiO2 Time Delivery Rate 11/27/18 78 15 98 Nasal 3.0 32 14:28 Cannula 11/27/18 105/46 13:00 (65) 11/27/18 98.5 12:00 Intake and Output 11/26/18 11/26/18 11/27/18 1515:00 23:00 07:00 IntakeIntake Total 646.19 ml 892.255 ml 811.820 ml OutputOutput Total 45 ml 0 ml 0 ml BalanceBalance 601.19 ml 892.255 ml 811.820 ml Exam Constitutional: alert, oriented x 1 ENMT: nl external ears & nose, nl lips & teeth, nl nasal mucosa & septum, mucosa pink and moist Respiratory: crackles/rales, diminished breath sounds Cardiovascular: regular rate and rhythm, nl pulses Gastrointestinal: soft, non-tender; ND, BS+ Musculoskeletal: other (eschar on L toe) Extremities: edema, pitting pedal edema, + right femoral Mic Catheter 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: lethargic Skin: ecchymosis (b/l UEs) Medications Medications Current Medications Ceftriaxone Sodium 50 ml @ 100 mls/hr Q24H IVPB Last administered on 11/26/18 21:04; Admin Dose 100 MLS/HR; Start 11/26/18 at 18:00 Albuterol/ Ipratropium (Duoneb) 3 ml Q6HWA RESP THERAPY HHN Last administered on 11/27/18 14:27; Admin Dose 3 ML; Start 11/26/18 at 08:00 Methylprednisolone Sodium Succinate (Solu-Medrol) 40 mg Q12 IV Last administered on 11/27/18 10:50; Admin Dose 40 MG; Start 11/25/18 at 22:30 Acetaminophen (Tylenol Tab) 500 mg Q6H PRN PO MILD PAIN(1-3)OR ELEVATED TEMP; Start 11/25/18 at 22:30 Dopamine HCl/ Dextrose 250 ml @ 5.91 mls/hr TITRATE IV Last administered on 11/27/18 01:16; Admin Dose 2.955 MLS/HR; Start 11/26/18 at 02:30 Sodium Bicarbonate 100 meq/Dextrose 1,000 ml @ 100 mls/hr Q10H IV Last administered on 11/27/18 09:15; Admin Dose 100 MLS/HR; Start 11/26/18 at 09:30 Heparin Sodium (Porcine) (Heparin (5000 Units/1ml)) 5,000 unit BID SC Last administered on 11/27/18 10:54; Admin Dose 5,000 UNIT; Start 11/26/18 at 21:00 Albumin Human 50 ml @ 100 mls/hr WITH DIALYSIS PRN IV SBP lower than 90 mm Hg ; Start 11/26/18 at 14:00 Sodium Chloride (NS) -To prime the dialy... DIRECTED FOR HD PRN IV SBP lower than 90 mm Hg ; Start 11/26/18 at 14:00 IV Flush (NS 10 ml) 10 ml PRN PRN IV IV PROTOCOL; Start 11/26/18 at 14:30 Mannitol 62.5 ml @ 750 mls/hr WITH DIALYSIS PRN IV for uremic encephalopathy ; Start 11/26/18 at 18:30 Vancomycin HCl (Vanco Iv Per Pharmacy) VANCOMYCIN PER PHARMACY PER PROTOCOL XX ; Start 11/26/18 at 23:30 GI HARTMAN MD Nov 27, 2018 17:15
[2018-11-27] MEDS: CEFTRIAXONE 1 GM/50 ML (PMX) 50 ML IVPB SCH (18:29)
--- NOTE | 2018-11-27 21:30 | CONS ---
Date/Time of Note Date/Time of Note DATE: 11/27/18 TIME: 21:08 Assessment/Plan Assessment/Plan Hospital Course assessment/impression - sepsis due to UTI, possibly bacteremia although the latter could be a contaminant - UTI due to gram negative bacteria - bacteremia 1/2 sets from 11/25/2018, Staph species, either S. aureus or coag negative Staph - also a component of SIRS due to acute hypoxic resp failure, acute on chronic renal failure - acute hypoxic resp failure, probably due to CHF exacerbation, off bipap - CHF exacerbation, improved after HD - acute on chronic renal failure, started on HD on 11/26/2018 - underlying COPD - CAD - hypothyroidism - gout - eschar of L 4th toe, probably ischemic eschar/ischemia - acute encephalopathy due to sepsis, acute hypoxic resp failure, acute on chronic renal failure, newly started on HD recommendations - pending results: Staph spp in blood culture, Gram negative aurora in urine culture - ordered: repeat blood cultures in AM - continue ceftriaxone (11/26/2018) for UTI - continue IV vancomycin (11/26/2018) for bacteremia management d/w Pt's NARINDER Garcia the critical care time I took to care for this Pt today was from 2049 to 2119 Result Diagram: 11/27/18 0425 11/27/18 0425 Results 24hrs Laboratory Tests Test 11/27/18 04:25 11/27/18 11:00 White Blood Count 10.6 Red Blood Count 3.18 L Hemoglobin 9.7 L Hematocrit 29.0 L Mean Corpuscular Volume 91.2 Mean Corpuscular Hemoglobin 30.5 Mean Corpuscular Hemoglobin Concent 33.4 Red Cell Distribution Width 16.0 H Platelet Count 152 Mean Platelet Volume 10.6 H Immature Granulocytes % 0.800 H Neutrophils % Segmented Neutrophils % (Manual) 81 H Band Neutrophils % (Manual) 17 H Lymphocytes % Monocytes % Monocytes % (Manual) 2 Eosinophils % Basophils % Nucleated Red Blood Cells % 3 H Immature Granulocytes # 0.090 H Neutrophils # Neutrophils # (Manual) 8.8 H Band Neutrophils # 1.8 H Lymphocytes # Monocytes # Monocytes # (Manual) 0.2 L Eosinophils # Basophils # Nucleated Red Blood Cells # Platelet Estimate NORMAL Giant Platelets 1 H Poikilocytosis 2+ Anisocytosis 1+ Macrocytosis 1+ Ovalocytes 1+ Sodium Level 134 L Potassium Level 4.7 Chloride Level 95 L Carbon Dioxide Level 28 # Anion Gap 11 # Blood Urea Nitrogen 53 #H Creatinine 3.66 #H Est Glomerular Filtrat Rate mL/min Glucose Level 111 Calcium Level 7.7 L Thyroid Stimulating Hormone (TSH) 62.900 H Blood Gas Specimen Source Blood arterial Arterial Blood Date Drawn 11/27/2018 10:55:45 AM Arterial Blood pH (Temp corrected) 7.308 L Arterial Blood pCO2 (Temp correct) 62.0 H Arterial Blood pO2 (Temp corrected) 118.6 H Arterial Blood HCO3 30.4 H Arterial Blood Base Excess 3.0 Arterial Blood Oxygen Saturation 97.8 Rei Test ACCEPTAB Arterial Blood Gas Puncture Site Right Radial Arterial Blood Carboxyhemoglobin 0.4 Arterial Blood Methemoglobin 0 Blood Gas A-a O2 Differential 66.2 H Oxyhemoglobin Percent 97.4 Blood Gas Temperature 37.0 Blood Gas Modality NASAL CANNULA FiO2 36.0 Blood Gas Notified Whom TM Blood Gas Notified Time 11/27/2018 11:03:17 AM Consultation Date/Type/Reason Admit Date/Time Nov 26, 2018 at 11:28 Date of Consultation: Nov 27, 2018 Type of Consult ID Reason for Consultation sepsis Requesting Provider: KATIE SANCHEZ Hx of Present Illness This is an 88yo female with CHF, COPD, CRI who was transferred from SNF to ER at [facility] on 11/25/2018 for dyspnea. Pt is somnolent and cannot give me her subjective history nor majority of ROS. upon arrival, she was hypothermic 90.2F, tachypenic 28, and lactic acid>2. She had acute hypoxic resp failure, acute on chronic renal failure, and her CXR showed pulm edema. She was placed on bipap and dopamin for blood pressure support. An HD catheter was placed in R femoral, and Pt was started on HD yesterday and today. This appeared to improve her oxygenation, and she is currently off bipap. She is off dopamine gtt too. Her lab is significant for Gram negative aurora in her urine culture with concurrent pyuria, and Staph spp in 1 out of 2 sets of blood cultures from 11/25/2018. GYPSY Sanchez requested D consultation on this Pt. Subjective hx not possible: pt non-verbal, other (very limited) Constitutional: other (denied pain) Past Medical History Medical History: congestive heart failure, coronary artery disease, GERD, high cholesterol, hypertension, hypothyroid, renal disease, urinary tract infection, other (COPD, neuropathy) Medications Current Medications Ceftriaxone Sodium 50 ml @ 100 mls/hr Q24H IVPB Last administered on 11/27/18at 18:29; Admin Dose 100 MLS/HR; Start 11/26/18 at 18:00 Albuterol/ Ipratropium (Duoneb) 3 ml Q6HWA RESP THERAPY HHN Last administered on 11/27/18at 19:19; Admin Dose 3 ML; Start 11/26/18 at 08:00 Methylprednisolone Sodium Succinate (Solu-Medrol) 40 mg Q12 IV Last administered on 11/27/18 10:50; Admin Dose 40 MG; Start 11/25/18 at 22:30 Acetaminophen (Tylenol Tab) 500 mg Q6H PRN PO MILD PAIN(1-3)OR ELEVATED TEMP; Start 11/25/18 at 22:30 Dopamine HCl/ Dextrose 250 ml @ 5.91 mls/hr TITRATE IV Last administered on 11/27/18at 01:16; Admin Dose 2.955 MLS/HR; Start 11/26/18 at 02:30 Sodium Bicarbonate 100 meq/Dextrose 1,000 ml @ 100 mls/hr Q10H IV Last administered on 11/27/18at 09:15; Admin Dose 100 MLS/HR; Start 11/26/18 at 09:30 Heparin Sodium (Porcine) (Heparin (5000 Units/1ml)) 5,000 unit BID SC Last administered on 11/27/18at 10:54; Admin Dose 5,000 UNIT; Start 11/26/18 at 21:00 Albumin Human 50 ml @ 100 mls/hr WITH DIALYSIS PRN IV SBP lower than 90 mm Hg ; Start 11/26/18 at 14:00 Sodium Chloride (NS) -To prime the dialy... DIRECTED FOR HD PRN IV SBP lower than 90 mm Hg ; Start 11/26/18 at 14:00 IV Flush (NS 10 ml) 10 ml PRN PRN IV IV PROTOCOL; Start 11/26/18 at 14:30 Mannitol 62.5 ml @ 750 mls/hr WITH DIALYSIS PRN IV for uremic encephalopathy ; Start 11/26/18 at 18:30 Vancomycin HCl (Vanco Iv Per Pharmacy) VANCOMYCIN PER PHARMACY PER PROTOCOL XX ; Start 11/26/18 at 23:30 Levothyroxine Sodium (Synthroid Iv) 75 mcg DAILY@06 IV ; Start 11/28/18 at 06:00 Allergies: Coded Allergies: aspirin (Verified Allergy, Unknown, 11/25/18) Past Surgical History Past Surgical Hx: appendectomy, cholecystectomy Social History Alcohol Use: none Smoking Status: Never smoker Drug Use: none Exam/Review of Systems Vital Signs Vitals Vital Signs Date Temp Pulse Resp B/P (MAP) Pulse Ox O2 O2 Flow FiO2 Time Delivery Rate 11/27/18 98.6 82 16 113/58 97 Nasal 20:00 (76) Cannula 11/27/18 3.0 20:00 11/27/18 32 14:28 Intake and Output 11/26/18 11/26/18 11/27/18 1515:00 23:00 07:00 IntakeIntake Total 646.19 ml 892.255 ml 811.820 ml OutputOutput Total 45 ml 0 ml 0 ml BalanceBalance 601.19 ml 892.255 ml 811.820 ml Exam Constitutional: non-verbal, frail, obese Psych: confusion Head: normocephalic, atraumatic Eyes: nl conjunctiva, nl lids ENMT: nl external ears & nose, nl lips & teeth, nl nasal mucosa & septum, mucosa pink and moist Neck: other (not swollen) Respiratory: crackles/rales, diminished breath sounds Cardiovascular: regular rate and rhythm, nl pulses Gastrointestinal: soft, non-tender; No distended, No tender Musculoskeletal: other (eschar on L toe) Extremities: edema, pitting pedal edema 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: lethargic Skin: ecchymosis (b/l UEs) Medications Medications Current Medications Ceftriaxone Sodium 50 ml @ 100 mls/hr Q24H IVPB Last administered on 11/27/18at 18:29; Admin Dose 100 MLS/HR; Start 11/26/18 at 18:00 Albuterol/ Ipratropium (Duoneb) 3 ml Q6HWA RESP THERAPY HHN Last administered on 11/27/18at 19:19; Admin Dose 3 ML; Start 11/26/18 at 08:00 Methylprednisolone Sodium Succinate (Solu-Medrol) 40 mg Q12 IV Last administered on 11/27/18at 10:50; Admin Dose 40 MG; Start 11/25/18 at 22:30 Acetaminophen (Tylenol Tab) 500 mg Q6H PRN PO MILD PAIN(1-3)OR ELEVATED TEMP; Start 11/25/18 at 22:30 Dopamine HCl/ Dextrose 250 ml @ 5.91 mls/hr TITRATE IV Last administered on 11/27/18at 01:16; Admin Dose 2.955 MLS/HR; Start 11/26/18 at 02:30 Sodium Bicarbonate 100 meq/Dextrose 1,000 ml @ 100 mls/hr Q10H IV Last administered on 11/27/18at 09:15; Admin Dose 100 MLS/HR; Start 11/26/18 at 09:30 Heparin Sodium (Porcine) (Heparin (5000 Units/1ml)) 5,000 unit BID SC Last administered on 11/27/18at 10:54; Admin Dose 5,000 UNIT; Start 11/26/18 at 21:00 Albumin Human 50 ml @ 100 mls/hr WITH DIALYSIS PRN IV SBP lower than 90 mm Hg ; Start 11/26/18 at 14:00 Sodium Chloride (NS) -To prime the dialy... DIRECTED FOR HD PRN IV SBP lower than 90 mm Hg ; Start 11/26/18 at 14:00 IV Flush (NS 10 ml) 10 ml PRN PRN IV IV PROTOCOL; Start 11/26/18 at 14:30 Mannitol 62.5 ml @ 750 mls/hr WITH DIALYSIS PRN IV for uremic encephalopathy ; Start 11/26/18 at 18:30 Vancomycin HCl (Vanco Iv Per Pharmacy) VANCOMYCIN PER PHARMACY PER PROTOCOL XX ; Start 11/26/18 at 23:30 Levothyroxine Sodium (Synthroid Iv) 75 mcg DAILY@06 IV ; Start 11/28/18 at 06:00 RICHARD MOBLEY M.D. Nov 27, 2018 21:29
[2018-11-28] VITALS (37 sets, daily range): BP systolic 72–171; BP diastolic 42–121; PULSE 45–98; RESP 13–22
[2018-11-28] MEDS: LEVOTHYROXINE 100 MCG VIAL IV SCH (06:29)
[2018-11-28] MEDS: SODIUM BICARBONATE (IV ADD) 100 MEQ in DEXTROSE 5% 900 ML IV SCH ×3 (08:08→22:41)
[2018-11-28] MEDS: METHYLPREDNISOLONE 40 MG INJ IV SCH ×2 (08:18→21:16)
[2018-11-28] MEDS: AMLODIPINE 5 MG TAB PO SCH (08:21)
[2018-11-28] MEDS: HEPARIN 5,000 UNIT/1 ML VIAL SC SCH ×2 (08:26→21:20)
[2018-11-28] MEDS: ALBUTEROL/IPRATROPIUM (NEB) 3 ML AMP HHN SCH ×3 (08:56→19:56)
--- NOTE | 2018-11-28 12:35 | CONS ---
Date/Time of Note Date/Time of Note DATE: 11/28/18 TIME: 12:34 Assessment/Plan Assessment/Plan Assessment/Plan 1. Shock, on dopamine pressor support at this time with previously preserved EF by most recent echo September 2018 of 60% to 65%.-improved off dopamine - stable no w- HD, tolerating well - goal 1.5 L out 2. Abnormal echocardiogram, assess for acute coronary syndrome - no interention currently planned. 3. Congestive heart failure, diastolic, acute on chronic, in the setting of renal failure- remove fluid with HD. 4. Renal failure- ESRD. 5. Anemia, status post transfusions- no bleeding noted. 6. Hyponatremia. 7. Urinary tract infection- con't anti-bx. Result Diagram: 11/28/1844711/28/18447 Results 24hrs Laboratory Tests Test 11/28/18 04:48 White Blood Count 9.3 Red Blood Count 2.99 L Hemoglobin 9.4 L Hematocrit 27.3 L Mean Corpuscular Volume 91.3 Mean Corpuscular Hemoglobin 31.4 Mean Corpuscular Hemoglobin Concent 34.4 Red Cell Distribution Width 15.9 H Platelet Count 145 Mean Platelet Volume 10.9 H Immature Granulocytes % 1.100 H Neutrophils % 92.3 H Lymphocytes % 3.7 L Monocytes % 2.8 Eosinophils % 0.0 Basophils % 0.1 Nucleated Red Blood Cells % 0.9 H Immature Granulocytes # 0.100 H Neutrophils # 8.6 H Lymphocytes # 0.3 L Monocytes # 0.3 Eosinophils # 0.0 Basophils # 0.0 Nucleated Red Blood Cells # 0.1 H Sodium Level 135 Potassium Level 3.7 Chloride Level 92 L Carbon Dioxide Level 36 H Anion Gap 7 Blood Urea Nitrogen 31 #H Creatinine 2.88 H Est Glomerular Filtrat Rate mL/min Glucose Level 142 Calcium Level 7.8 L Free Thyroxine 0.16 L Consultation Date/Type/Reason Admit Date/Time Nov 26, 2018 at 11:28 Initial Consult Date 11/27/18 Requesting Provider: KATIE MENDEZ 24 HR Interval Summary Free Text/Dictation stable no w- HD, tolerating well - goal 1.5 L out ROS: No fever, no chills, no nausea, no vomiting, no diarrhea/constipation No recent weight changes No chest pain, no PND, no orthopnea + SOB No dizziness, blurred vision No thirst, no heat or cold intolerance Exam/Review of Systems Vital Signs Vitals Vital Signs Date Temp Pulse Resp B/P (MAP) Pulse Ox O2 O2 Flow FiO2 Time Delivery Rate 11/28/18 75 16 124/67 96 11:00 (86) 11/28/18 Nasal 4.0 08:56 Cannula 11/28/18 98.6 04:00 11/27/18 32 14:28 Intake and Output 11/27/18 11/27/18 11/28/18 1515:00 23:00 07:00 IntakeIntake Total 200 ml 1100 ml 850 ml OutputOutput Total 2200 ml 75 ml 100 ml BalanceBalance -2000 ml 1025 ml 750 ml Exam General: WN/WD/NAD, AOx comfortable HEENT: Unicetric/atraumatic/EOMI ( follow commands) NECK: JVD elevated, no thyromegaly Lymph: no lymphadenopathy HEART: regular with no S3, II/ systolic murmur at apex LUNGS: Coarse sounds ABD: soft, NT, ND, +BS : Intact Neuro: non focal SKIN: chronic changes EXT: trace edema Medications Medications Current Medications Ceftriaxone Sodium 50 ml @ 100 mls/hr Q24H IVPB Last administered on 11/27/18 18:29; Admin Dose 100 MLS/HR; Start 11/26/18 at 18:00 Albuterol/ Ipratropium (Duoneb) 3 ml Q6HWA RESP THERAPY HHN Last administered on 11/28/18 08:56; Admin Dose 3 ML; Start 11/26/18 at 08:00 Methylprednisolone Sodium Succinate (Solu-Medrol) 40 mg Q12 IV Last administered on 11/28/18 08:18; Admin Dose 40 MG; Start 11/25/18 at 22:30 Acetaminophen (Tylenol Tab) 500 mg Q6H PRN PO MILD PAIN(1-3)OR ELEVATED TEMP; Start 11/25/18 at 22:30 Dopamine HCl/ Dextrose 250 ml @ 5.91 mls/hr TITRATE IV Last administered on 11/27/18at 01:16; Admin Dose 2.955 MLS/HR; Start 11/26/18 at 02:30 Sodium Bicarbonate 100 meq/Dextrose 1,000 ml @ 100 mls/hr Q10H IV Last administered on 1/5/19at 08:08; Admin Dose 100 MLS/HR; Start 11/26/18 at 09:30 Heparin Sodium (Porcine) (Heparin (5000 Units/1ml)) 5,000 unit BID SC Last administered on 11/28/18at 08:26; Admin Dose 5,000 UNIT; Start 11/26/18 at 21:00 Albumin Human 50 ml @ 100 mls/hr WITH DIALYSIS PRN IV SBP lower than 90 mm Hg ; Start 11/26/18 at 14:00 Sodium Chloride (NS) -To prime the dialy... DIRECTED FOR HD PRN IV SBP lower than 90 mm Hg ; Start 11/26/18 at 14:00 IV Flush (NS 10 ml) 10 ml PRN PRN IV IV PROTOCOL; Start 11/26/18 at 14:30 Mannitol 62.5 ml @ 750 mls/hr WITH DIALYSIS PRN IV for uremic encephalopathy ; Start 11/26/18 at 18:30 Vancomycin HCl (Vanco Iv Per Pharmacy) VANCOMYCIN PER PHARMACY PER PROTOCOL XX ; Start 11/26/18 at 23:30 Levothyroxine Sodium (Synthroid Iv) 75 mcg DAILY@06 IV Last administered on 11/28/18at 06:29; Admin Dose 75 MCG; Start 11/28/18 at 06:00 Hydralazine HCl (Apresoline) 20 mg Q6H PRN IV SBP > 160; Start 11/28/18 at 07:00 Amlodipine Besylate (Norvasc) 5 mg DAILY PO Last administered on 11/28/18at 08:21; Admin Dose 5 MG; Start 11/28/18 at 09:00 MICHELLE COLEMAN MD Nov 28, 2018 12:35
--- NOTE | 2018-11-28 13:15 | CONS ---
Date/Time of Note Date/Time of Note DATE: 11/28/18 TIME: 13:15 Assessment/Plan Assessment/Plan Assessment/Plan 1. Oliguric Acute kindey injury on CKD III due to ATN from septic shock, 2. Acute uremic encephalopathy 3. Acute hyperkalemia- resolved 4. Severe metabolic acidosis 5. Septic shock on pressors 2/2 UTI and bacteremia 6. acute hypoxemic respiraotry failure on BIPAP 7. acute on chronic,systolic and diastolic heart failure 8. H/o HTN 9. H/o COPD Plan: started on HD on 11/26/17- s/p HD 2 days in row, Plan for HD today then pt will be on MWF schedule Right [facility] in [facility]- next week we will plan for permacath placement, call to schedule permacath IV abx as per PMD, renally dose all abx and monitor electrolytes will follow up Result Diagram: 11/28/18 0448 11/28/18 0448 Results 24hrs Laboratory Tests Test 11/28/18 04:48 White Blood Count 9.3 Red Blood Count 2.99 L Hemoglobin 9.4 L Hematocrit 27.3 L Mean Corpuscular Volume 91.3 Mean Corpuscular Hemoglobin 31.4 Mean Corpuscular Hemoglobin Concent 34.4 Red Cell Distribution Width 15.9 H Platelet Count 145 Mean Platelet Volume 10.9 H Immature Granulocytes % 1.100 H Neutrophils % 92.3 H Lymphocytes % 3.7 L Monocytes % 2.8 Eosinophils % 0.0 Basophils % 0.1 Nucleated Red Blood Cells % 0.9 H Immature Granulocytes # 0.100 H Neutrophils # 8.6 H Lymphocytes # 0.3 L Monocytes # 0.3 Eosinophils # 0.0 Basophils # 0.0 Nucleated Red Blood Cells # 0.1 H Sodium Level 135 Potassium Level 3.7 Chloride Level 92 L Carbon Dioxide Level 36 H Anion Gap 7 Blood Urea Nitrogen 31 #H Creatinine 2.88 H Est Glomerular Filtrat Rate mL/min Glucose Level 142 Calcium Level 7.8 L Free Thyroxine 0.16 L Consultation Date/Type/Reason Admit Date/Time Nov 26, 2018 at 11:28 Initial Consult Date 11/26/18 Type of Consult NEPHROLOGY Requesting Provider: KATIE MENDEZ 24 HR Interval Summary Free Text/Dictation currently getting HD, BP stable, awake, alert, more communicative Exam/Review of Systems Vital Signs Vitals Vital Signs Date Temp Pulse Resp B/P (MAP) Pulse Ox O2 O2 Flow FiO2 Time Delivery Rate 11/28/18 98.1 78 13 133/111 96 Nasal 3.0 12:00 (118) Cannula 11/27/18 32 14:28 Intake and Output 11/27/18 11/27/18 11/28/18 1414:59 22:59 06:59 IntakeIntake Total 300 ml 1000 ml 850 ml OutputOutput Total 2200 ml 75 ml 100 ml BalanceBalance -1900 ml 925 ml 750 ml Exam Constitutional: alert, oriented x 2 ENMT: EDWAR EOMI, No JVD Respiratory: crackles/rales, diminished breath sounds Cardiovascular: regular rate and rhythm, nl pulses Gastrointestinal: soft, non-tender; ND, BS+ Musculoskeletal: other (eschar on L toe) Extremities: edema, pitting pedal edema, + right femoral Mic Catheter 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: lethargic Skin: ecchymosis (b/l UEs) Medications Medications Current Medications Ceftriaxone Sodium 50 ml @ 100 mls/hr Q24H IVPB Last administered on 11/27/18 18:29; Admin Dose 100 MLS/HR; Start 11/26/18 at 18:00 Albuterol/ Ipratropium (Duoneb) 3 ml Q6HWA RESP THERAPY HHN Last administered on 11/28/18 08:56; Admin Dose 3 ML; Start 11/26/18 at 08:00 Methylprednisolone Sodium Succinate (Solu-Medrol) 40 mg Q12 IV Last administered on 11/28/18 08:18; Admin Dose 40 MG; Start 11/25/18 at 22:30 Acetaminophen (Tylenol Tab) 500 mg Q6H PRN PO MILD PAIN(1-3)OR ELEVATED TEMP; Start 11/25/18 at 22:30 Dopamine HCl/ Dextrose 250 ml @ 5.91 mls/hr TITRATE IV Last administered on 11/27/18 01:16; Admin Dose 2.955 MLS/HR; Start 11/26/18 at 02:30 Sodium Bicarbonate 100 meq/Dextrose 1,000 ml @ 100 mls/hr Q10H IV Last administered on 11/28/18 08:08; Admin Dose 100 MLS/HR; Start 11/26/18 at 09:30 Heparin Sodium (Porcine) (Heparin (5000 Units/1ml)) 5,000 unit BID SC Last administered on 11/28/18at 08:26; Admin Dose 5,000 UNIT; Start 11/26/18 at 21:00 Albumin Human 50 ml @ 100 mls/hr WITH DIALYSIS PRN IV SBP lower than 90 mm Hg ; Start 11/26/18 at 14:00 Sodium Chloride (NS) -To prime the dialy... DIRECTED FOR HD PRN IV SBP lower than 90 mm Hg ; Start 11/26/18 at 14:00 IV Flush (NS 10 ml) 10 ml PRN PRN IV IV PROTOCOL; Start 11/26/18 at 14:30 Mannitol 62.5 ml @ 750 mls/hr WITH DIALYSIS PRN IV for uremic encephalopathy ; Start 11/26/18 at 18:30 Vancomycin HCl (Vanco Iv Per Pharmacy) VANCOMYCIN PER PHARMACY PER PROTOCOL XX ; Start 11/26/18 at 23:30 Levothyroxine Sodium (Synthroid Iv) 75 mcg DAILY@06 IV Last administered on 11/28/18at 06:29; Admin Dose 75 MCG; Start 11/28/18 at 06:00 Hydralazine HCl (Apresoline) 20 mg Q6H PRN IV SBP > 160; Start 11/28/18 at 07:00 Amlodipine Besylate (Norvasc) 5 mg DAILY PO Last administered on 11/28/18at 08:21; Admin Dose 5 MG; Start 11/28/18 at 09:00 GI HARTMAN MD Nov 28, 2018 13:15
--- NOTE | 2018-11-28 13:35 | CONS ---
Date/Time of Note Date/Time of Note DATE: 11/28/18 TIME: 13:32 Consult Date/Type/Reason Admit Date/Time Nov 26, 2018 at 11:28 Initial Consult Date 11/27/18 Type of Consultation: Pulmonary ICU Requesting Provider: KATIE MENDEZ Subjective No events. Undergoing HD now. Objective Vital Signs Date Temp Pulse Resp B/P (MAP) Pulse Ox O2 O2 Flow FiO2 Time Delivery Rate 11/28/18 98.1 78 13 133/111 96 Nasal 3.0 12:00 (118) Cannula 11/27/18 32 14:28 Intake and Output 11/27/18 11/27/18 11/28/18 1515:00 23:00 07:00 IntakeIntake Total 200 ml 1100 ml 850 ml OutputOutput Total 2200 ml 75 ml 100 ml BalanceBalance -2000 ml 1025 ml 750 ml Exam VITAL SIGNS: Elderly appearing lady somnolent NECK: Supple. No JVD or lymphadenopathy. CARDIAC: S1, S2, no added sounds or murmurs. CHEST: Diminished air entry bilaterally. ABDOMEN: Soft, nontender. No guarding or rebound. EXTREMITIES: No cyanosis, clubbing, 1+ edema. NEUROLOGIC: Generalized weakness. Results/Medications Result Diagram: 11/28/18 0448 11/28/18 0448 Results 24 hrs Laboratory Tests Test 11/28/18 04:48 White Blood Count 9.3 Red Blood Count 2.99 L Hemoglobin 9.4 L Hematocrit 27.3 L Mean Corpuscular Volume 91.3 Mean Corpuscular Hemoglobin 31.4 Mean Corpuscular Hemoglobin Concent 34.4 Red Cell Distribution Width 15.9 H Platelet Count 145 Mean Platelet Volume 10.9 H Immature Granulocytes % 1.100 H Neutrophils % 92.3 H Lymphocytes % 3.7 L Monocytes % 2.8 Eosinophils % 0.0 Basophils % 0.1 Nucleated Red Blood Cells % 0.9 H Immature Granulocytes # 0.100 H Neutrophils # 8.6 H Lymphocytes # 0.3 L Monocytes # 0.3 Eosinophils # 0.0 Basophils # 0.0 Nucleated Red Blood Cells # 0.1 H Sodium Level 135 Potassium Level 3.7 Chloride Level 92 L Carbon Dioxide Level 36 H Anion Gap 7 Blood Urea Nitrogen 31 #H Creatinine 2.88 H Est Glomerular Filtrat Rate mL/min Glucose Level 142 Calcium Level 7.8 L Free Thyroxine 0.16 L Medications Current Medications Ceftriaxone Sodium 50 ml @ 100 mls/hr Q24H IVPB Last administered on 11/27/18 18:29; Admin Dose 100 MLS/HR; Start 11/26/18 at 18:00 Albuterol/ Ipratropium (Duoneb) 3 ml Q6HWA RESP THERAPY HHN Last administered on 11/28/18 08:56; Admin Dose 3 ML; Start 11/26/18 at 08:00 Methylprednisolone Sodium Succinate (Solu-Medrol) 40 mg Q12 IV Last administered on 11/28/18 08:18; Admin Dose 40 MG; Start 11/25/18 at 22:30 Acetaminophen (Tylenol Tab) 500 mg Q6H PRN PO MILD PAIN(1-3)OR ELEVATED TEMP; Start 11/25/18 at 22:30 Dopamine HCl/ Dextrose 250 ml @ 5.91 mls/hr TITRATE IV Last administered on 11/27/18 01:16; Admin Dose 2.955 MLS/HR; Start 11/26/18 at 02:30 Sodium Bicarbonate 100 meq/Dextrose 1,000 ml @ 100 mls/hr Q10H IV Last administered on 11/28/18 08:08; Admin Dose 100 MLS/HR; Start 11/26/18 at 09:30 Heparin Sodium (Porcine) (Heparin (5000 Units/1ml)) 5,000 unit BID SC Last administered on 11/28/18 08:26; Admin Dose 5,000 UNIT; Start 11/26/18 at 21:00 Albumin Human 50 ml @ 100 mls/hr WITH DIALYSIS PRN IV SBP lower than 90 mm Hg ; Start 11/26/18 at 14:00 Sodium Chloride (NS) -To prime the dialy... DIRECTED FOR HD PRN IV SBP lower than 90 mm Hg ; Start 11/26/18 at 14:00 IV Flush (NS 10 ml) 10 ml PRN PRN IV IV PROTOCOL; Start 11/26/18 at 14:30 Mannitol 62.5 ml @ 750 mls/hr WITH DIALYSIS PRN IV for uremic encephalopathy ; Start 11/26/18 at 18:30 Vancomycin HCl (Vanco Iv Per Pharmacy) VANCOMYCIN PER PHARMACY PER PROTOCOL XX ; Start 11/26/18 at 23:30 Levothyroxine Sodium (Synthroid Iv) 75 mcg DAILY@06 IV Last administered on 11/28/18at 06:29; Admin Dose 75 MCG; Start 11/28/18 at 06:00 Hydralazine HCl (Apresoline) 20 mg Q6H PRN IV SBP > 160; Start 11/28/18 at 07:00 Amlodipine Besylate (Norvasc) 5 mg DAILY PO Last administered on 11/28/18at 08:21; Admin Dose 5 MG; Start 11/28/18 at 09:00 Assessment/Plan Additional Assessment/Plan IMP: 1. Acute encephalopathy, likely secondary to significant electrolyte abnormalities with acute renal failure. 2. Acute renal failure, etiology unclear. Does not appear to be prerenal. 3. Significant bradycardia likely secondary to hyperkalemia from acute renal failure. 4. Atrial fibrillation. RECS: 1. Continue HD/UF 2. IV fluids per nephrology 3. Aspiration precautions 4. Abx per ID 5. Am labs/CXR CC 40 mins SABA ALVES MD Nov 28, 2018 13:35
--- NOTE | 2018-11-28 13:57 | PN ---
Date/Time of Note Date/Time of Note DATE: 11/28/18 TIME: 13:56 Assessment/Plan VTE [place] [facility] [place]: 12 [place] [facility] [place] Yes SCD contraindicated: other Pharmacological prophylaxis: other Pharm contraindication: other Lines/Catheters IV Catheter Type (from [facility]): PICC Line Central line still needed: Yes Urinary Cath still in place: Yes Reason Cath still needed: urinary retention Assessment/Plan Assessment/Plan -Acute respiratory failure requiring BiPAP. Dr. Garcia is following in pulmonology consultation. -Cardiogenic versus septic shock. Patient is currently on dopamine for blood pressure support. -Acute on chronic systolic and diastolic congestive heart failure. Dr. Iraheta is asked to see patient in cardiology consultation. -ARF on CKD. Dr Hill is following in nephrology consultation. -Pulmonary edema -Possible pneumonia -DNR status Total critical care time spent is 35 mins.Further recommendations based on clinical course. Plan of care discussed with Dr. Olivier. Result Diagram: 11/28/18 0448 11/28/188 Results 24hrs Laboratory Tests Test 11/28/18 04:48 White Blood Count 9.3 Red Blood Count 2.99 L Hemoglobin 9.4 L Hematocrit 27.3 L Mean Corpuscular Volume 91.3 Mean Corpuscular Hemoglobin 31.4 Mean Corpuscular Hemoglobin Concent 34.4 Red Cell Distribution Width 15.9 H Platelet Count 145 Mean Platelet Volume 10.9 H Immature Granulocytes % 1.100 H Neutrophils % 92.3 H Lymphocytes % 3.7 L Monocytes % 2.8 Eosinophils % 0.0 Basophils % 0.1 Nucleated Red Blood Cells % 0.9 H Immature Granulocytes # 0.100 H Neutrophils # 8.6 H Lymphocytes # 0.3 L Monocytes # 0.3 Eosinophils # 0.0 Basophils # 0.0 Nucleated Red Blood Cells # 0.1 H Sodium Level 135 Potassium Level 3.7 Chloride Level 92 L Carbon Dioxide Level 36 H Anion Gap 7 Blood Urea Nitrogen 31 #H Creatinine 2.88 H Est Glomerular Filtrat Rate mL/min Glucose Level 142 Calcium Level 7.8 L Free Thyroxine 0.16 L Subjective 24 Hr Interval Summary Free Text/Dictation 24 hours off pressors having HD now Exam/Review of Systems Vital Signs Vitals Vital Signs Date Temp Pulse Resp B/P (MAP) Pulse Ox O2 O2 Flow FiO2 Time Delivery Rate 11/28/18 98.1 78 13 133/111 96 Nasal 3.0 12:00 (118) Cannula 11/27/18 32 14:28 Intake and Output 11/27/18 11/27/18 11/28/18 1515:00 23:00 07:00 IntakeIntake Total 200 ml 1100 ml 850 ml OutputOutput Total 2200 ml 75 ml 100 ml BalanceBalance -2000 ml 1025 ml 750 ml Medications Medications Current Medications Ceftriaxone Sodium 50 ml @ 100 mls/hr Q24H IVPB Last administered on 11/27/18 18:29; Admin Dose 100 MLS/HR; Start 11/26/18 at 18:00 Albuterol/ Ipratropium (Duoneb) 3 ml Q6HWA RESP THERAPY HHN Last administered on 11/28/18 08:56; Admin Dose 3 ML; Start 11/26/18 at 08:00 Methylprednisolone Sodium Succinate (Solu-Medrol) 40 mg Q12 IV Last administered on 11/28/18 08:18; Admin Dose 40 MG; Start 11/25/18 at 22:30 Acetaminophen (Tylenol Tab) 500 mg Q6H PRN PO MILD PAIN(1-3)OR ELEVATED TEMP; Start 11/25/18 at 22:30 Dopamine HCl/ Dextrose 250 ml @ 5.91 mls/hr TITRATE IV Last administered on 11/27/18 01:16; Admin Dose 2.955 MLS/HR; Start 11/26/18 at 02:30 Sodium Bicarbonate 100 meq/Dextrose 1,000 ml @ 100 mls/hr Q10H IV Last administered on 11/28/18 08:08; Admin Dose 100 MLS/HR; Start 11/26/18 at 09:30 Heparin Sodium (Porcine) (Heparin (5000 Units/1ml)) 5,000 unit BID SC Last administered on 11/28/18 08:26; Admin Dose 5,000 UNIT; Start 11/26/18 at 21:00 Albumin Human 50 ml @ 100 mls/hr WITH DIALYSIS PRN IV SBP lower than 90 mm Hg ; Start 11/26/18 at 14:00 Sodium Chloride (NS) -To prime the dialy... DIRECTED FOR HD PRN IV SBP lower than 90 mm Hg ; Start 11/26/18 at 14:00 IV Flush (NS 10 ml) 10 ml PRN PRN IV IV PROTOCOL; Start 11/26/18 at 14:30 Mannitol 62.5 ml @ 750 mls/hr WITH DIALYSIS PRN IV for uremic encephalopathy ; Start 11/26/18 at 18:30 Vancomycin HCl (Vanco Iv Per Pharmacy) VANCOMYCIN PER PHARMACY PER PROTOCOL XX ; Start 11/26/18 at 23:30 Levothyroxine Sodium (Synthroid Iv) 75 mcg DAILY@06 IV Last administered on 11/28/18at 06:29; Admin Dose 75 MCG; Start 11/28/18 at 06:00 Hydralazine HCl (Apresoline) 20 mg Q6H PRN IV SBP > 160; Start 11/28/18 at 07:00 Amlodipine Besylate (Norvasc) 5 mg DAILY PO Last administered on 11/28/18at 08:21; Admin Dose 5 MG; Start 11/28/18 at 09:00 Alteplase, Recombinant (Cathflo (Activase)) 2.8 mg ONCE ONCE CATHETER ; Start 11/28/18 at 14:00; Stop 11/28/18 at 14:01 KATIE MENDEZ Nov 28, 2018 13:57
[2018-11-28] MEDS ORDERED: ALTEPLASE (CATHFLO) 2 MG INJ CATHETER ONE (14:00)
[2018-11-28] MEDS: CEFTRIAXONE 1 GM/50 ML (PMX) 50 ML IVPB SCH (18:24)
[2018-11-28] MEDS: hydrALAzine 20 MG INJ IV PRN (21:31)
--- NOTE | 2018-11-28 22:07 | CONS ---
Date/Time of Note Date/Time of Note DATE: 11/28/18 TIME: 22:06 Assessment/Plan Assessment/Plan Assessment/Plan Assessment/Impression: - sepsis due to UTI possibly bacteremia although the latter could be a contaminant - UTI due to gram negative bacteria - bacteremia 1/2 sets from 11/25/2018 due to coag negative Staph - also a component of SIRS due to acute hypoxic resp failure, acute on chronic renal failure - acute hypoxic resp failure, probably due to CHF exacerbation, off bipap - CHF exacerbation, improved after HD - acute on chronic renal failure, started on HD on 11/26/2018 - underlying COPD - CAD - hypothyroidism - TSH elevated and FT4 depressed - gout - eschar of L 4th toe, probably ischemic eschar/ischemia - acute encephalopathy due to sepsis, acute hypoxic resp failure, acute on chronic renal failure, newly started on HD Recommendations: - pending results: repeat blood cx from 11/27/2018 - continue ceftriaxone (11/26/2018) for UTI - continue IV vancomycin (11/26/2018) for bacteremia Management d/w NARINDER Aguilar and with Dr. Haile Result Diagram: 11/28/18 0448 11/28/18 0448 Results 24hrs Laboratory Tests Test 11/28/18 04:48 White Blood Count 9.3 Red Blood Count 2.99 L Hemoglobin 9.4 L Hematocrit 27.3 L Mean Corpuscular Volume 91.3 Mean Corpuscular Hemoglobin 31.4 Mean Corpuscular Hemoglobin Concent 34.4 Red Cell Distribution Width 15.9 H Platelet Count 145 Mean Platelet Volume 10.9 H Immature Granulocytes % 1.100 H Neutrophils % 92.3 H Lymphocytes % 3.7 L Monocytes % 2.8 Eosinophils % 0.0 Basophils % 0.1 Nucleated Red Blood Cells % 0.9 H Immature Granulocytes # 0.100 H Neutrophils # 8.6 H Lymphocytes # 0.3 L Monocytes # 0.3 Eosinophils # 0.0 Basophils # 0.0 Nucleated Red Blood Cells # 0.1 H Sodium Level 135 Potassium Level 3.7 Chloride Level 92 L Carbon Dioxide Level 36 H Anion Gap 7 Blood Urea Nitrogen 31 #H Creatinine 2.88 H Est Glomerular Filtrat Rate mL/min Glucose Level 142 Calcium Level 7.8 L Free Thyroxine 0.16 L Consultation Date/Type/Reason Admit Date/Time Nov 26, 2018 at 11:28 Initial Consult Date 11/27/18 Type of Consult Infectious Disease Requesting Provider: KATIE MENDEZ 24 HR Interval Summary Free Text/Dictation Pt transferred out of ICU to telemetry. Remains confused per d/w nursing. Pt states there is traffic and I need to move something so the doctors and nurses can get to her. States current year is 1967. "Of course I know Dr. Olivier, he's the one who did my surgery". Currently denies pain or SOB. Unable to obtain ROS d/t AMS Exam/Review of Systems Vital Signs Vitals Vital Signs Date Temp Pulse Resp B/P (MAP) Pulse Ox O2 O2 Flow FiO2 Time Delivery Rate 11/28/18 84 20:00 11/28/18 18 99 Nasal 3.0 19:56 Cannula 11/28/18 98.9 171/77 19:50 (108) 11/27/18 32 14:28 Intake and Output 11/27/18 11/27/18 11/28/18 1515:00 23:00 07:00 IntakeIntake Total 200 ml 1100 ml 850 ml OutputOutput Total 2200 ml 75 ml 100 ml BalanceBalance -2000 ml 1025 ml 750 ml Exam Constitutional: well developed, frail, obese Psych: confusion Head: normocephalic, atraumatic Eyes: nl conjunctiva, nl lids ENMT: nl external ears & nose, nl nasal mucosa & septum, mucosa pink and moist Neck: other (not swollen) Respiratory: congested cough, crackles/rales, diminished breath sounds Cardiovascular: regular rate and rhythm, nl pulses Gastrointestinal: soft, non-tender; No distended Genitourinary - Female: other (Alvarado in place) Musculoskeletal: muscle weakness, other (eschar on L 4th toe) Extremities: pitting pedal edema, other (LUE PICC c/d/i) 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: confused, lethargic; No nl speech Skin: ecchymosis (BUE) Medications Medications Current Medications Ceftriaxone Sodium 50 ml @ 100 mls/hr Q24H IVPB Last administered on 11/28/18at 18:24; Admin Dose 100 MLS/HR; Start 11/26/18 at 18:00 Albuterol/ Ipratropium (Duoneb) 3 ml Q6HWA RESP THERAPY HHN Last administered on 11/28/18at 19:56; Admin Dose 3 ML; Start 1/3/19 at 08:00 Methylprednisolone Sodium Succinate (Solu-Medrol) 40 mg Q12 IV Last administered on 11/28/18 21:16; Admin Dose 40 MG; Start 11/25/18 at 22:30 Acetaminophen (Tylenol Tab) 500 mg Q6H PRN PO MILD PAIN(1-3)OR ELEVATED TEMP; Start 11/25/18 at 22:30 Dopamine HCl/ Dextrose 250 ml @ 5.91 mls/hr TITRATE IV Last administered on 11/27/18at 01:16; Admin Dose 2.955 MLS/HR; Start 11/26/18 at 02:30 Sodium Bicarbonate 100 meq/Dextrose 1,000 ml @ 100 mls/hr Q10H IV Last a dministered on 11/28/18 08:08; Admin Dose 100 MLS/HR; Start 11/26/18 at 09:30 Heparin Sodium (Porcine) (Heparin (5000 Units/1ml)) 5,000 unit BID SC Last administered on 11/28/18 21:20; Admin Dose 5,000 UNIT; Start 11/26/18 at 21:00 Albumin Human 50 ml @ 100 mls/hr WITH DIALYSIS PRN IV SBP lower than 90 mm Hg ; Start 11/26/18 at 14:00 Sodium Chloride (NS) -To prime the dialy... DIRECTED FOR HD PRN IV SBP lower than 90 mm Hg ; Start 11/26/18 at 14:00 IV Flush (NS 10 ml) 10 ml PRN PRN IV IV PROTOCOL; Start 11/26/18 at 14:30 Mannitol 62.5 ml @ 750 mls/hr WITH DIALYSIS PRN IV for uremic encephalopathy ; Start 11/26/18 at 18:30 Vancomycin HCl (Vanco Iv Per Pharmacy) VANCOMYCIN PER PHARMACY PER PROTOCOL XX ; Start 11/26/18 at 23:30 Levothyroxine Sodium (Synthroid Iv) 75 mcg DAILY@06 IV Last administered on 11/28/18at 06:29; Admin Dose 75 MCG; Start 11/28/18 at 06:00 Hydralazine HCl (Apresoline) 20 mg Q6H PRN IV SBP > 160 Last administered on 11/28/18at 21:31; Admin Dose 20 MG; Start 11/28/18 at 07:00 Amlodipine Besylate (Norvasc) 5 mg DAILY PO Last administered on 11/28/18at 08:21; Admin Dose 5 MG; Start 11/28/18 at 09:00 Miscellaneous Information (*Rx Drug Level Order Reminder*) RANDOM VANCO LEVEL... ONCE ONCE XX ; Start 11/29/18 at 05:00; Stop 11/29/18 at 05:01 Imaging Imaging CXR 11/28/2018: Cardiomegaly. Increased interstitial markings compatible with i nterstitial edema. No alveolar infiltrate. MING HUSTON SAP DATA ANALYST Nov 28, 2018 22:07
[2018-11-29] VITALS (14 sets, daily range): BP systolic 116–188; BP diastolic 57–88; PULSE 84–109; RESP 20–22
[2018-11-29] MEDS ORDERED: ALBUTEROL/IPRATROPIUM (NEB) 3 ML AMP HHN PRN (01:00)
[2018-11-29] MEDS ORDERED: FUROSEMIDE 40 MG INJ IV ONE (01:00)
[2018-11-29] MEDS: LEVOTHYROXINE 100 MCG VIAL IV SCH (07:04)
[2018-11-29] MEDS: ALBUTEROL/IPRATROPIUM (NEB) 3 ML AMP HHN SCH ×3 (07:46→20:32)
[2018-11-29] MEDS: AMLODIPINE 5 MG TAB PO SCH (08:35)
[2018-11-29] MEDS: METHYLPREDNISOLONE 40 MG INJ IV SCH ×2 (08:35→21:13)
[2018-11-29] MEDS: HEPARIN 5,000 UNIT/1 ML VIAL SC SCH ×2 (08:46→21:57)
[2018-11-29] MEDS ORDERED: VANCOMYCIN 1 GM 250 ML IVPB SCH (10:00)
[2018-11-29] MEDS: SODIUM BICARBONATE (IV ADD) 100 MEQ in DEXTROSE 5% 900 ML IV SCH (11:36)
[2018-11-29] MEDS: ACETAMINOPHEN 500 MG TAB PO PRN (12:32)
[2018-11-29] MEDS: hydrALAzine 20 MG INJ IV PRN (12:33)
--- NOTE | 2018-11-29 13:20 | CONS ---
Date/Time of Note Date/Time of Note DATE: 11/29/18 TIME: 13:18 Assessment/Plan Assessment/Plan Assessment/Plan 1. Shock, on dopamine pressor support at this time with previously preserved EF by most recent echo September 2018 of 60% to 65%.-improved off dopamine - stable no w- HD, tolerating well - goal 1.5 L out - out of ICU - BP going up - will resume some BP meds. 2. Abnormal echocardiogram, assess for acute coronary syndrome - no interention currently planned. No intervention currently planned. 3. Congestive heart failure, diastolic, acute on chronic, in the setting of renal failure- remove fluid with HD. 4. Renal failure- ESRD - renal team follows. 5. Anemia, status post transfusions- no bleeding noted. 6. Hyponatremia. 7. Urinary tract infection- con't anti-bx. Result Diagram: 11/29/189 11/29/189 Results 24hrs Laboratory Tests Test 11/29/18 04:49 White Blood Count 13.0 #H Red Blood Count 3.35 L Hemoglobin 10.2 L Hematocrit 31.1 L Mean Corpuscular Volume 92.8 Mean Corpuscular Hemoglobin 30.4 Mean Corpuscular Hemoglobin Concent 32.8 Red Cell Distribution Width 15.8 H Platelet Count 176 # Mean Platelet Volume 10.8 H Immature Granulocytes % 1.200 H Neutrophils % 91.2 H Lymphocytes % 3.5 L Monocytes % 3.8 Eosinophils % 0.0 Basophils % 0.3 Nucleated Red Blood Cells % 0.4 H Immature Granulocytes # 0.160 H Neutrophils # 11.9 H Lymphocytes # 0.5 L Monocytes # 0.5 Eosinophils # 0.0 Basophils # 0.0 Nucleated Red Blood Cells # 0.1 H Sodium Level 138 Potassium Level 3.6 Chloride Level 98 Carbon Dioxide Level 30 Anion Gap 10 Blood Urea Nitrogen 27 H Creatinine 2.37 H Est Glomerular Filtrat Rate mL/min Glucose Level 163 Lactic Acid Level 1.8 Calcium Level 8.7 Random Vancomycin Level 9.8 Consultation Date/Type/Reason Admit Date/Time Nov 26, 2018 at 11:28 Initial Consult Date 11/27/18 Requesting Provider: KATIE MENDEZ 24 HR Interval Summary Free Text/Dictation Pt more awake - eating with assistance - no obvious chest pain - will add BP meds now. ROS: No fever, no chills, no nausea, no vomiting, no diarrhea/constipation No recent weight changes No chest pain, no PND, no orthopnea - improved SOB No dizziness, blurred vision No thirst, no heat or cold intolerance Exam/Review of Systems Vital Signs Vitals Vital Signs Date Temp Pulse Resp B/P (MAP) Pulse Ox O2 O2 Flow FiO2 Time Delivery Rate 11/29/18 100.6 12:32 11/29/18 88 20 178/79 93 11:23 (112) 11/29/18 Nasal 3.0 08:15 Cannula 11/27/18 32 14:28 Intake and Output 11/28/18 11/28/18 11/29/18 1515:00 23:00 07:00 IntakeIntake Total 860 ml 320 ml 0 ml OutputOutput Total 1914 ml 100 ml 500 ml BalanceBalance -1054 ml 220 ml -500 ml Exam General: WN/WD/NAD, AOx 2-3 HEENT: Unicetric/atraumatic/EOMI (follow commands) NECK: JVD elevated, no thyromegaly Lymph: no lymphadenopathy HEART: regular with no S3, II/ systolic murmur at apex LUNGS: Coarse sounds ABD: soft, NT, ND, +BS : Intact Neuro: non focal SKIN: chronic changes EXT: 1+ edema Medications Medications Current Medications Ceftriaxone Sodium 50 ml @ 100 mls/hr Q24H IVPB Last administered on 11/28/18 18:24; Admin Dose 100 MLS/HR; Start 11/26/18 at 18:00 Albuterol/ Ipratropium (Duoneb) 3 ml Q6HWA RESP THERAPY HHN Last administered on 11/29/18 07:46; Admin Dose 3 ML; Start 11/26/18 at 08:00 Methylprednisolone Sodium Succinate (Solu-Medrol) 40 mg Q12 IV Last administered on 11/29/18 08:35; Admin Dose 40 MG; Start 11/25/18 at 22:30 Acetaminophen (Tylenol Tab) 500 mg Q6H PRN PO MILD PAIN(1-3)OR ELEVATED TEMP Last administered on 11/29/18 12:32; Admin Dose 500 MG; Start 11/25/18 at 22:30 Sodium Bicarbonate 100 meq/Dextrose 1,000 ml @ 100 mls/hr Q10H IV Last administered on 11/29/18 11:36; Admin Dose 100 MLS/HR; Start 11/26/18 at 09:30 Heparin Sodium (Porcine) (Heparin (5000 Units/1ml)) 5,000 unit BID SC Last administered on 11/29/18at 08:46; Admin Dose 5,000 UNIT; Start 11/26/18 at 21:00 Albumin Human 50 ml @ 100 mls/hr WITH DIALYSIS PRN IV SBP lower than 90 mm Hg ; Start 11/26/18 at 14:00 Sodium Chloride (NS) -To prime the dialy... DIRECTED FOR HD PRN IV SBP lower than 90 mm Hg ; Start 11/26/18 at 14:00 IV Flush (NS 10 ml) 10 ml PRN PRN IV IV PROTOCOL; Start 11/26/18 at 14:30 Vancomycin HCl (Vanco Iv Per Pharmacy) VANCOMYCIN PER PHARMACY PER PROTOCOL XX ; Start 11/26/18 at 23:30 Levothyroxine Sodium (Synthroid Iv) 75 mcg DAILY@06 IV Last administered on 11/29/18at 07:04; Admin Dose 75 MCG; Start 11/28/18 at 06:00 Hydralazine HCl (Apresoline) 20 mg Q6H PRN IV SBP > 160 Last administered on 11/29/18at 12:33; Admin Dose 20 MG; Start 11/28/18 at 07:00 Amlodipine Besylate (Norvasc) 5 mg DAILY PO Last administered on 11/29/18at 08 :35; Admin Dose 5 MG; Start 11/28/18 at 09:00 Albuterol/ Ipratropium (Duoneb) 3 ml Q4H RESP THERAPY PRN HHN SHORTNESS OF BREATH; Start 11/29/18 at 01:00 Vancomycin HCl 250 ml @ 125 mls/hr ONCE IVPB Last administered on 11/29/18at 11:36; Admin Dose 125 MLS/HR; Start 11/29/18 at 10:00; Stop 11/29/18 at 23:59 MICHELLE COLEMAN MD Nov 29, 2018 13:20
--- NOTE | 2018-11-29 13:37 | CONS ---
Date/Time of Note Date/Time of Note DATE: 11/29/18 TIME: 13:36 Consult Date/Type/Reason Admit Date/Time Nov 26, 2018 at 11:28 Initial Consult Date 11/27/18 Type of Consultation: Pulmonary Requesting Provider: KATIE MENDEZ Subjective No events. Transferred to [facility] overnight. Objective Vital Signs Date Temp Pulse Resp B/P (MAP) Pulse Ox O2 O2 Flow FiO2 Time Delivery Rate 11/29/18 100.6 12:32 11/29/18 88 20 178/79 93 11:23 (112) 11/29/18 Nasal 3.0 08:15 Cannula 11/27/18 32 14:28 Intake and Output 11/28/18 11/28/18 11/29/18 1515:00 23:00 07:00 IntakeIntake Total 860 ml 320 ml 0 ml OutputOutput Total 1914 ml 100 ml 500 ml BalanceBalance -1054 ml 220 ml -500 ml Exam NECK: Supple. No JVD or lymphadenopathy. CARDIAC: Irreg irreg S1, S2, no added sounds or murmurs. CHEST: Diminished air entry bilaterally. ABDOMEN: Soft, nontender. No guarding or rebound. EXTREMITIES: No cyanosis, clubbing, 1+ edema. NEUROLOGIC: Generalized weakness. Results/Medications Result Diagram: 11/29/1844811/29/18448 Results 24 hrs Laboratory Tests Test 11/29/18 04:49 White Blood Count 13.0 #H Red Blood Count 3.35 L Hemoglobin 10.2 L Hematocrit 31.1 L Mean Corpuscular Volume 92.8 Mean Corpuscular Hemoglobin 30.4 Mean Corpuscular Hemoglobin Concent 32.8 Red Cell Distribution Width 15.8 H Platelet Count 176 # Mean Platelet Volume 10.8 H Immature Granulocytes % 1.200 H Neutrophils % 91.2 H Lymphocytes % 3.5 L Monocytes % 3.8 Eosinophils % 0.0 Basophils % 0.3 Nucleated Red Blood Cells % 0.4 H Immature Granulocytes # 0.160 H Neutrophils # 11.9 H Lymphocytes # 0.5 L Monocytes # 0.5 Eosinophils # 0.0 Basophils # 0.0 Nucleated Red Blood Cells # 0.1 H Sodium Level 138 Potassium Level 3.6 Chloride Level 98 Carbon Dioxide Level 30 Anion Gap 10 Blood Urea Nitrogen 27 H Creatinine 2.37 H Est Glomerular Filtrat Rate mL/min Glucose Level 163 Lactic Acid Level 1.8 Calcium Level 8.7 Random Vancomycin Level 9.8 Medications Current Medications Ceftriaxone Sodium 50 ml @ 100 mls/hr Q24H IVPB Last administered on 11/28/18 18:24; Admin Dose 100 MLS/HR; Start 11/26/18 at 18:00 Albuterol/ Ipratropium (Duoneb) 3 ml Q6HWA RESP THERAPY HHN Last administered on 11/29/18 07:46; Admin Dose 3 ML; Start 11/26/18 at 08:00 Methylprednisolone Sodium Succinate (Solu-Medrol) 40 mg Q12 IV Last administered on 11/29/18 08:35; Admin Dose 40 MG; Start 11/25/18 at 22:30 Acetaminophen (Tylenol Tab) 500 mg Q6H PRN PO MILD PAIN(1-3)OR ELEVATED TEMP Last administered on 11/29/18 12:32; Admin Dose 500 MG; Start 11/25/18 at 22:30 Sodium Bicarbonate 100 meq/Dextrose 1,000 ml @ 100 mls/hr Q10H IV Last administered on 11/29/18at 11:36; Admin Dose 100 MLS/HR; Start 11/26/18 at 09:30 Heparin Sodium (Porcine) (Heparin (5000 Units/1ml)) 5,000 unit BID SC Last administered on 11/29/18 08:46; Admin Dose 5,000 UNIT; Start 11/26/18 at 21:00 Albumin Human 50 ml @ 100 mls/hr WITH DIALYSIS PRN IV SBP lower than 90 mm Hg ; Start 11/26/18 at 14:00 Sodium Chloride (NS) -To prime the dialy... DIRECTED FOR HD PRN IV SBP lower than 90 mm Hg ; Start 11/26/18 at 14:00 IV Flush (NS 10 ml) 10 ml PRN PRN IV IV PROTOCOL; Start 11/26/18 at 14:30 Vancomycin HCl (Vanco Iv Per Pharmacy) VANCOMYCIN PER PHARMACY PER PROTOCOL XX ; Start 11/26/18 at 23:30 Levothyroxine Sodium (Synthroid Iv) 75 mcg DAILY@06 IV Last administered on 11/29/18 07:04; Admin Dose 75 MCG; Start 11/28/18 at 06:00 Hydralazine HCl (Apresoline) 20 mg Q6H PRN IV SBP > 160 Last administered on 11/29/18at 12:33; Admin Dose 20 MG; Start 11/28/18 at 07:00 Amlodipine Besylate (Norvasc) 5 mg DAILY PO Last administered on 11/29/18at 08:35; Admin Dose 5 MG; Start 11/28/18 at 09:00 Albuterol/ Ipratropium (Duoneb) 3 ml Q4H RESP THERAPY PRN HHN SHORTNESS OF BREATH; Start 11/29/18 at 01:00 Vancomycin HCl 250 ml @ 125 mls/hr ONCE IVPB Last administered on 11/29/18at 11:36; Admin Dose 125 MLS/HR; Start 11/29/18 at 10:00; Stop 11/29/18 at 23:59 Nifedipine (Procardia Xl) 60 mg BID PO ; Start 11/29/18 at 21:00; Status UNV Assessment/Plan Additional Assessment/Plan IMP: 1. Acute encephalopathy, likely secondary to significant electrolyte abnor malities with acute renal failure. 2. Acute renal failure, etiology unclear. Does not appear to be prerenal. 3. Significant bradycardia likely secondary to hyperkalemia from acute renal failure. 4. Atrial fibrillation. RECS: 1. Aspiration precautions 2. Fluid management as per Renal 3. Titrate O2 as tolerated 4. Abx per ID 5. Am labs/CXR SABA ALVES MD Nov 29, 2018 13:37
[2018-11-29] MEDS: NIFEdipine (XL) 60 MG TAB PO SCH ×2 (14:27→23:46)
--- NOTE | 2018-11-29 15:26 | CONS ---
Date/Time of Note Date/Time of Note DATE: 11/29/18 TIME: 15:25 Assessment/Plan Assessment/Plan Assessment/Plan Assessment/Impression: - sepsis due to UTI possibly bacteremia although the latter could be a contaminant - UTI due to gram negative bacteria - bacteremia 1/2 sets from 11/25/2018 due to coag negative Staph - also a component of SIRS due to acute hypoxic resp failure, acute on chronic renal failure - acute hypoxic resp failure, probably due to CHF exacerbation, off bipap - CHF exacerbation, improved after HD - acute on chronic renal failure, started on HD on 11/26/2018 - underlying COPD - CAD - hypothyroidism - TSH elevated and FT4 depressed - gout - eschar of L 4th toe, probably ischemic eschar/ischemia - acute encephalopathy due to sepsis, acute hypoxic resp failure, acute on chronic renal failure, newly started on HD Recommendations: - pending results: repeat blood cx from 11/28/2018 (NGTD) - continue ceftriaxone (11/26/2018) for UTI - continue IV vancomycin (11/26/2018) for possible bacteremia; can likely DC chon bourgeois Management d/w NARINDER Graham, pt's two daughters, and with Dr. Haile Result Diagram: 11/29/18 0449 11/29/18 0449 Results 24hrs Laboratory Tests Test 11/29/18 04:49 White Blood Count 13.0 #H Red Blood Count 3.35 L Hemoglobin 10.2 L Hematocrit 31.1 L Mean Corpuscular Volume 92.8 Mean Corpuscular Hemoglobin 30.4 Mean Corpuscular Hemoglobin Concent 32.8 Red Cell Distribution Width 15.8 H Platelet Count 176 # Mean Platelet Volume 10.8 H Immature Granulocytes % 1.200 H Neutrophils % 91.2 H Lymphocytes % 3.5 L Monocytes % 3.8 Eosinophils % 0.0 Basophils % 0.3 Nucleated Red Blood Cells % 0.4 H Immature Granulocytes # 0.160 H Neutrophils # 11.9 H Lymphocytes # 0.5 L Monocytes # 0.5 Eosinophils # 0.0 Basophils # 0.0 Nucleated Red Blood Cells # 0.1 H Sodium Level 138 Potassium Level 3.6 Chloride Level 98 Carbon Dioxide Level 30 Anion Gap 10 Blood Urea Nitrogen 27 H Creatinine 2.37 H Est Glomerular Filtrat Rate mL/min Glucose Level 163 Lactic Acid Level 1.8 Calcium Level 8.7 Random Vancomycin Level 9.8 Consultation Date/Type/Reason Admit Date/Time Nov 26, 2018 at 11:28 Initial Consult Date 11/27/18 Type of Consult Infectious Disease Requesting Provider: KATIE MENDEZ 24 HR Interval Summary Free Text/Dictation Pt more lethargic earlier today. Intermittently confused per d/w pt's two daughters. Pt denies pain or SOB. WBC up to 13, but pt on IV steroids. Tmax 100.6 F Exam/Review of Systems Vital Signs Vitals Vital Signs Date Temp Pulse Resp B/P (MAP) Pulse Ox O2 O2 Flow FiO2 Time Delivery Rate 11/29/18 4.0 14:52 11/29/18 71 20 97 Nasal 14:48 Cannula 11/29/18 99.2 135/63 14:24 (87) 11/27/18 32 14:28 Intake and Output 11/28/18 11/28/18 11/29/18 1515:00 23:00 07:00 IntakeIntake Total 860 ml 320 ml 0 ml OutputOutput Total 1914 ml 100 ml 500 ml BalanceBalance -1054 ml 220 ml -500 ml Exam Constitutional: well developed, frail, obese Psych: confusion (intermittently) Head: normocephalic, atraumatic Eyes: nl conjunctiva, nl lids ENMT: nl external ears & nose, nl nasal mucosa & septum, mucosa pink and moist Neck: other (not swollen) Respiratory: congested cough, crackles/rales, diminished breath sounds Cardiovascular: regular rate and rhythm, nl pulses Gastrointestinal: soft, non-tender; No distended Genitourinary - Female: other (Alvarado in place) Musculoskeletal: muscle weakness, other (eschar on L 4th toe) Extremities: pitting pedal edema, other (LUE PICC c/d/i) 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: confused, lethargic; No nl speech Skin: ecchymosis (BUE) Medications Medications Current Medications Ceftriaxone Sodium 50 ml @ 100 mls/hr Q24H IVPB Last administered on 11/28/18at 18:24; Admin Dose 100 MLS/HR; Start 11/26/18 at 18:00 Albuterol/ Ipratropium (Duoneb) 3 ml Q6HWA RESP THERAPY HHN Last administered on 11/29/18at 14:46; Admin Dose 3 ML; Start 11/26/18 at 08:00 Methylprednisolone Sodium Succinate (Solu-Medrol) 40 mg Q12 IV Last administered on 11/29/18 08:35; Admin Dose 40 MG; Start 11/25/18 at 22:30 Acetaminophen (Tylenol Tab) 500 mg Q6H PRN PO MILD PAIN(1-3)OR ELEVATED TEMP Last administered on 11/29/18at 12:32; Admin Dose 500 MG; Start 11/25/18 at 22:30 Sodium Bicarbonate 100 meq/Dextrose 1,000 ml @ 100 mls/hr Q10H IV Last administered on 11/29/18at 11:36; Admin Dose 100 MLS/HR; Start 11/26/18 at 09:30 Heparin Sodium (Porcine) (Heparin (5000 Units/1ml)) 5,000 unit BID SC Last administered on 11/29/18at 08:46; Admin Dose 5,000 UNIT; Start 11/26/18 at 21:00 Albumin Human 50 ml @ 100 mls/hr WITH DIALYSIS PRN IV SBP lower than 90 mm Hg ; Start 11/26/18 at 14:00 Sodium Chloride (NS) -To prime the dialy... DIRECTED FOR HD PRN IV SBP lower than 90 mm Hg ; Start 11/26/18 at 14:00 IV Flush (NS 10 ml) 10 ml PRN PRN IV IV PROTOCOL; Start 11/26/18 at 14:30 Vancomycin HCl (Vanco Iv Per Pharmacy) VANCOMYCIN PER PHARMACY PER PROTOCOL XX ; Start 11/26/18 at 23:30 Levothyroxine Sodium (Synthroid Iv) 75 mcg DAILY@06 IV Last administered on 11/29/18at 07:04; Admin Dose 75 MCG; Start 11/28/18 at 06:00 Hydralazine HCl (Apresoline) 20 mg Q6H PRN IV SBP > 160 Last administered on 11/29/18at 12:33; Admin Dose 20 MG; Start 11/28/18 at 07:00 Amlodipine Besylate (Norvasc) 5 mg DAILY PO Last administered on 11/29/18at 08:35; Admin Dose 5 MG; Start 11/28/18 at 09:00 Albuterol/ Ipratropium (Duoneb) 3 ml Q4H RESP THERAPY PRN HHN SHORTNESS OF BREATH; Start 1/6/19 at 01:00 Vancomycin HCl 250 ml @ 125 mls/hr ONCE IVPB Last administered on 11/29/18at 11:36; Admin Dose 125 MLS/HR; Start 11/29/18 at 10:00; Stop 11/29/18 at 23:59 Nifedipine (Procardia Xl) 60 mg BID PO Last administered on 11/29/18at 14:27; Admin Dose 60 MG; Start 11/29/18 at 14:00 MING HUSTON NP Nov 29, 2018 15:26
--- NOTE | 2018-11-29 15:42 | PN ---
Date/Time of Note Date/Time of Note DATE: 11/29/18 TIME: 15:42 Assessment/Plan VTE Prophylaxis Risk score (from [facility])>0 risk: 7 SCD applied (from [facility]): No SCD contraindicated: other Pharmacological prophylaxis: other Pharm contraindication: other Lines/Catheters IV C[facility] Type ([facility] PICC Line Central line still needed: Yes Urinary Cath still in place: Yes Reason Cath still needed: urinary retention Assessment/Plan Assessment/Plan -Acute respiratory failure requiring BiPAP. Dr. Garcia is following in pulmonology consultation. -Cardiogenic versus septic shock. Patient is currently on dopamine for blood pressure support. -Acute on chronic systolic and diastolic congestive heart failure. Dr. Iraheta is asked to see patient in cardiology consultation. -ARF on CKD. Dr Hill is following in nephrology consultation. -Pulmonary edema -Possible pneumonia -DNR status .Further recommendations based on clinical course. Plan of care discussed with Dr. Olivier. Result Diagram: 11/29/18 0449 11/29/189 Results 24hrs Laboratory Tests Test 11/29/18 04:49 White Blood Count 13.0 #H Red Blood Count 3.35 L Hemoglobin 10.2 L Hematocrit 31.1 L Mean Corpuscular Volume 92.8 Mean Corpuscular Hemoglobin 30.4 Mean Corpuscular Hemoglobin Concent 32.8 Red Cell Distribution Width 15.8 H Platelet Count 176 # Mean Platelet Volume 10.8 H Immature Granulocytes % 1.200 H Neutrophils % 91.2 H Lymphocytes % 3.5 L Monocytes % 3.8 Eosinophils % 0.0 Basophils % 0.3 Nucleated Red Blood Cells % 0.4 H Immature Granulocytes # 0.160 H Neutrophils # 11.9 H Lymphocytes # 0.5 L Monocytes # 0.5 Eosinophils # 0.0 Basophils # 0.0 Nucleated Red Blood Cells # 0.1 H Sodium Level 138 Potassium Level 3.6 Chloride Level 98 Carbon Dioxide Level 30 Anion Gap 10 Blood Urea Nitrogen 27 H Creatinine 2.37 H Est Glomerular Filtrat Rate mL/min Glucose Level 163 Lactic Acid Level 1.8 Calcium Level 8.7 Random Vancomycin Level 9.8 Exam/Review of Systems Vital Signs Vitals Vital Signs Date Temp Pulse Resp B/P (MAP) Pulse Ox O2 O2 Flow FiO2 Time Delivery Rate 11/29/18 100.1 96 20 129/88 94 15:26 (102) 1/6/19 4.0 14:52 11/29/18 Nasal 14:48 Cannula 11/27/18 32 14:28 Intake and Output 11/28/18 11/28/18 11/29/18 1515:00 23:00 07:00 IntakeIntake Total 860 ml 320 ml 0 ml OutputOutput Total 1914 ml 100 ml 500 ml BalanceBalance -1054 ml 220 ml -500 ml Medications Medications Current Medications Ceftriaxone Sodium 50 ml @ 100 mls/hr Q24H IVPB Last administered on 11/28/18 18:24; Admin Dose 100 MLS/HR; Start 11/26/18 at 18:00 Albuterol/ Ipratropium (Duoneb) 3 ml Q6HWA RESP THERAPY HHN Last administered on 11/29/18 14:46; Admin Dose 3 ML; Start 11/26/18 at 08:00 Methylprednisolone Sodium Succinate (Solu-Medrol) 40 mg Q12 IV Last administered on 11/29/18 08:35; Admin Dose 40 MG; Start 11/25/18 at 22:30 Acetaminophen (Tylenol Tab) 500 mg Q6H PRN PO MILD PAIN(1-3)OR ELEVATED TEMP Last administered on 11/29/18 12:32; Admin Dose 500 MG; Start 11/25/18 at 22:30 Sodium Bicarbonate 100 meq/Dextrose 1,000 ml @ 100 mls/hr Q10H IV Last administered on 11/29/18 11:36; Admin Dose 100 MLS/HR; Start 11/26/18 at 09:30 Heparin Sodium (Porcine) (Heparin (5000 Units/1ml)) 5,000 unit BID SC Last administered on 11/29/18 08:46; Admin Dose 5,000 UNIT; Start 11/26/18 at 21:00 Albumin Human 50 ml @ 100 mls/hr WITH DIALYSIS PRN IV SBP lower than 90 mm Hg ; Start 11/26/18 at 14:00 Sodium Chloride (NS) -To prime the dialy... DIRECTED FOR HD PRN IV SBP lower than 90 mm Hg ; Start 11/26/18 at 14:00 IV Flush (NS 10 ml) 10 ml PRN PRN IV IV PROTOCOL; Start 11/26/18 at 14:30 Vancomycin HCl (Vanco Iv Per Pharmacy) VANCOMYCIN PER PHARMACY PER PROTOCOL XX ; Start 11/26/18 at 23:30 Levothyroxine Sodium (Synthroid Iv) 75 mcg DAILY@06 IV Last administered on 11/29/18at 07:04; Admin Dose 75 MCG; Start 11/28/18 at 06:00 Hydralazine HCl (Apresoline) 20 mg Q6H PRN IV SBP > 160 Last administered on 11/29/18at 12:33; Admin Dose 20 MG; Start 11/28/18 at 07:00 Amlodipine Besylate (Norvasc) 5 mg DAILY PO Last administered on 11/29/18at 08:35; Admin Dose 5 MG; Start 11/28/18 at 09:00 Albuterol/ Ipratropium (Duoneb) 3 ml Q4H RESP THERAPY PRN HHN SHORTNESS OF BREATH; Start 11/29/18 at 01:00 Vancomycin HCl 250 ml @ 125 mls/hr ONCE IVPB Last administered on 11/29/18at 11:36; Admin Dose 125 MLS/HR; Start 11/29/18 at 10:00; Stop 11/29/18 at 23:59 Nifedipine (Procardia Xl) 60 mg BID PO Last administered on 11/29/18at 14:27; Admin Dose 60 MG; Start 11/29/18 at 14:00 KATIE MENDEZ Nov 29, 2018 15:42
--- NOTE | 2018-11-29 15:54 | CONS ---
Date/Time of Note Date/Time of Note DATE: 11/29/18 TIME: 15:54 Assessment/Plan Assessment/Plan Assessment/Plan 1. Oliguric Acute kindey injury on CKD III due to ATN from septic shock, 2. Acute uremic encephalopathy 3. Acute hyperkalemia- resolved 4. Severe metabolic acidosis 5. Septic shock on pressors 2/2 UTI and bacteremia 6. acute hypoxemic respiraotry failure on BIPAP 7. acute on chronic,systolic and diastolic heart failure 8. H/o HTN 9. H/o COPD Plan: started on HD on 11/26/17- s/p HD yesterday - 1 L removed, HD ordered for Friday also, pt will be on MWF schedule Right rosalina mic in Place- next week we will plan for permacath placement, call to schedule permacath IV abx as per PMD, renally dose all abx and monitor electrolytes will follow up Result Diagram: 11/29/18 0449 11/29/18 0449 Results 24hrs Laboratory Tests Test 11/29/18 04:49 White Blood Count 13.0 #H Red Blood Count 3.35 L Hemoglobin 10.2 L Hematocrit 31.1 L Mean Corpuscular Volume 92.8 Mean Corpuscular Hemoglobin 30.4 Mean Corpuscular Hemoglobin Concent 32.8 Red Cell Distribution Width 15.8 H Platelet Count 176 # Mean Platelet Volume 10.8 H Immature Granulocytes % 1.200 H Neutrophils % 91.2 H Lymphocytes % 3.5 L Monocytes % 3.8 Eosinophils % 0.0 Basophils % 0.3 Nucleated Red Blood Cells % 0.4 H Immature Granulocytes # 0.160 H Neutrophils # 11.9 H Lymphocytes # 0.5 L Monocytes # 0.5 Eosinophils # 0.0 Basophils # 0.0 Nucleated Red Blood Cells # 0.1 H Sodium Level 138 Potassium Level 3.6 Chloride Level 98 Carbon Dioxide Level 30 Anion Gap 10 Blood Urea Nitrogen 27 H Creatinine 2.37 H Est Glomerular Filtrat Rate mL/min Glucose Level 163 Lactic Acid Level 1.8 Calcium Level 8.7 Random Vancomycin Level 9.8 Consultation Date/Type/Reason Admit Date/Time Nov 26, 2018 at 11:28 Initial Consult Date 11/26/18 Type of Consult NEPHROLOGY Requesting Provider: KATIE MENDEZ Exam/Review of Systems Vital Signs Vitals Vital Signs Date Temp Pulse Resp B/P (MAP) Pulse Ox O2 O2 Flow FiO2 Time Delivery Rate 11/29/18 100.1 96 20 129/88 94 15:26 (102) 11/29/18 4.0 14:52 11/29/18 Nasal 14:48 Cannula 11/27/18 32 14:28 Intake and Output 11/28/18 11/28/18 11/29/18 1515:00 23:00 07:00 IntakeIntake Total 860 ml 320 ml 0 ml OutputOutput Total 1914 ml 100 ml 500 ml BalanceBalance -1054 ml 220 ml -500 ml Exam Constitutional: alert, oriented x 2 ENMT: EDWAR EOMI, No JVD Respiratory: crackles/rales, diminished breath sounds Cardiovascular: regular rate and rhythm, nl pulses Gastrointestinal: soft, non-tender; ND, BS+ Musculoskeletal: other (eschar on L toe) Extremities: edema, pitting pedal edema, + right femoral Mic Catheter 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: lethargic Skin: ecchymosis (b/l UEs) Medications Medications Current Medications Ceftriaxone Sodium 50 ml @ 100 mls/hr Q24H IVPB Last administered on 11/28/18 18:24; Admin Dose 100 MLS/HR; Start 11/26/18 at 18:00 Albuterol/ Ipratropium (Duoneb) 3 ml Q6HWA RESP THERAPY HHN Last administered on 11/29/18 14:46; Admin Dose 3 ML; Start 11/26/18 at 08:00 Methylprednisolone Sodium Succinate (Solu-Medrol) 40 mg Q12 IV Last administered on 11/29/18 08:35; Admin Dose 40 MG; Start 11/25/18 at 22:30 Acetaminophen (Tylenol Tab) 500 mg Q6H PRN PO MILD PAIN(1-3)OR ELEVATED TEMP Last administered on 11/29/18 12:32; Admin Dose 500 MG; Start 11/25/18 at 22:30 Sodium Bicarbonate 100 meq/Dextrose 1,000 ml @ 100 mls/hr Q10H IV Last administered on 11/29/18 11:36; Admin Dose 100 MLS/HR; Start 11/26/18 at 09:30 Heparin Sodium (Porcine) (Heparin (5000 Units/1ml)) 5,000 unit BID SC Last administered on 11/29/18at 08:46; Admin Dose 5,000 UNIT; Start 11/26/18 at 21:00 Albumin Human 50 ml @ 100 mls/hr WITH DIALYSIS PRN IV SBP lower than 90 mm Hg ; Start 11/26/18 at 14:00 Sodium Chloride (NS) -To prime the dialy... DIRECTED FOR HD PRN IV SBP lower than 90 mm Hg ; Start 11/26/18 at 14:00 IV Flush (NS 10 ml) 10 ml PRN PRN IV IV PROTOCOL; Start 11/26/18 at 14:30 Vancomycin HCl (Vanco Iv Per Pharmacy) VANCOMYCIN PER PHARMACY PER PROTOCOL XX ; Start 11/26/18 at 23:30 Levothyroxine Sodium (Synthroid Iv) 75 mcg DAILY@06 IV Last administered on 11/29/18at 07:04; Admin Dose 75 MCG; Start 11/28/18 at 06:00 Hydralazine HCl (Apresoline) 20 mg Q6H PRN IV SBP > 160 Last administered on 11/29/18at 12:33; Admin Dose 20 MG; Start 11/28/18 at 07:00 Amlodipine Besylate (Norvasc) 5 mg DAILY PO Last administered on 11/29/18at 08:35; Admin Dose 5 MG; Start 11/28/18 at 09:00 Albuterol/ Ipratropium (Duoneb) 3 ml Q4H RESP THERAPY PRN HHN SHORTNESS OF BREATH; Start 11/29/18 at 01:00 Vancomycin HCl 250 ml @ 125 mls/hr ONCE IVPB Last administered on 11/29/18at 11:36; Admin Dose 125 MLS/HR; Start 11/29/18 at 10:00; Stop 11/29/18 at 23:59 Nifedipine (Procardia Xl) 60 mg BID PO Last administered on 11/29/18at 14:27; Admin Dose 60 MG; Start 11/29/18 at 14:00 GI HARTMAN MD Nov 29, 2018 15:54
[2018-11-29] MEDS: CEFTRIAXONE 1 GM/50 ML (PMX) 50 ML IVPB SCH (17:39)
[2018-11-30] VITALS (27 sets, daily range): BP systolic 106–146; BP diastolic 56–76; PULSE 86–119; RESP 18–32
[2018-11-30] MEDS: LEVOTHYROXINE 100 MCG VIAL IV SCH (06:10)
[2018-11-30] MEDS: ALBUTEROL/IPRATROPIUM (NEB) 3 ML AMP HHN SCH ×3 (08:48→20:14)
[2018-11-30] MEDS ORDERED: POTASSIUM CHLORIDE 100 ML IVPB SCH (09:30)
--- NOTE | 2018-11-30 10:27 | CONS ---
Date/Time of Note Date/Time of Note DATE: 11/30/18 TIME: 10:24 Assessment/Plan Assessment/Plan Assessment/Plan Assessment and recommendations; 1. Patient admitted with A. fib with RVR with rate now controlled. 2. Left lower lobe pneumonia 3. Klebsiella and Proteus UTI. 4. Acute renal insufficiency. With worsening renal function. 5. Chronic atrial fibrillation. 6. Acute encephalopathy with interval improvement. 7. History of hypothyroidism. Continue current supportive care. Monitor renal function. Discontinue Rocephin and start cefepime 1 g every 12 hours. Obtain follow-up chest x-ray in 24 hours. Result Diagram: 11/30/18 0450 11/30/18 0450 Results 24hrs Laboratory Tests Test 11/30/18 04:50 White Blood Count 13.6 H Red Blood Count 3.13 L Hemoglobin 9.6 L Hematocrit 29.4 L Mean Corpuscular Volume 93.9 Mean Corpuscular Hemoglobin 30.7 Mean Corpuscular Hemoglobin Concent 32.7 Red Cell Distribution Width 16.0 H Platelet Count 133 #L Mean Platelet Volume 10.2 Immature Granulocytes % 1.000 H Neutrophils % 88.5 H Lymphocytes % 5.5 L Monocytes % 4.9 Eosinophils % 0.0 Basophils % 0.1 Nucleated Red Blood Cells % 0.3 H Immature Granulocytes # 0.130 H Neutrophils # 12.0 H Lymphocytes # 0.7 L Monocytes # 0.7 Eosinophils # 0.0 Basophils # 0.0 Nucleated Red Blood Cells # 0.0 Sodium Level 139 Potassium Level 3.2 L Chloride Level 94 L Carbon Dioxide Level 35 H Anion Gap 10 Blood Urea Nitrogen 46 #H Creatinine 3.41 #H Est Glomerular Filtrat Rate mL/min Glucose Level 146 Calcium Level 8.7 Consultation Date/Type/Reason Admit Date/Time Nov 26, 2018 at 11:28 Initial Consult Date 11/27/18 Type of Consult Pulmonary Reason for Consultation Patient's condition is stable. Denies any chest pain, complains of very minimal shortness of breath. General exam; elderly female, awake and alert. Able to converse appropriately. Currently in no distress. Requesting Provider: KATIE MENDEZ Exam/Review of Systems Vital Signs Vitals Vital Signs Date Temp Pulse Resp B/P (MAP) Pulse Ox O2 O2 Flow FiO2 Time Delivery Rate 11/30/18 119 09:17 11/30/18 24 92 Nasal 5.0 08:48 Cannula 11/30/18 98.5 132/66 07:11 (88) 11/27/18 32 14:28 Intake and Output 11/29/18 11/29/18 11/30/18 1515:00 23:00 07:00 IntakeIntake Total 1660 ml OutputOutput Total 650 ml 100 ml BalanceBalance 1010 ml -100 ml Exam HEENT exam; supple neck, no JVD. No lymphadenopathy. Midline trachea. No thyromegaly. Patient does have multiple carious teeth. Chest exam; diminished breath sounds bilaterally. S1-S2 audible, no murmurs. Irregular rhythm. Abdomen exam; soft, no organomegaly. Nontender. Bowel sounds audible. Extremity exam; no peripheral edema or clubbing. [employer] exam; no focal deficit. Medications Medications Current Medications Ceftriaxone Sodium 50 ml @ 100 mls/hr Q24H IVPB Last administered on 11/29/18 17:39; Admin Dose 100 MLS/HR; Start 11/26/18 at 18:00 Albuterol/ Ipratropium (Duoneb) 3 ml Q6HWA RESP THERAPY HHN Last administered on 11/30/18 08:48; Admin Dose 3 ML; Start 11/26/18 at 08:00 Methylprednisolone Sodium Succinate (Solu-Medrol) 40 mg Q12 IV Last administered on 11/29/18 21:13; Admin Dose 40 MG; Start 11/25/18 at 22:30 Acetaminophen (Tylenol Tab) 500 mg Q6H PRN PO MILD PAIN(1-3)OR ELEVATED TEMP Last administered on 11/29/18 12:32; Admin Dose 500 MG; Start 11/25/18 at 22:30 Heparin Sodium (Porcine) (Heparin (5000 Units/1ml)) 5,000 unit BID SC Last administered on 11/29/18 21:57; Admin Dose 5,000 UNIT; Start 11/26/18 at 21:00 Albumin Human 50 ml @ 100 mls/hr WITH DIALYSIS PRN IV SBP lower than 90 mm Hg ; Start 11/26/18 at 14:00 Sodium Chloride (NS) -To prime the dialy... DIRECTED FOR HD PRN IV SBP lower than 90 mm Hg ; Start 11/26/18 at 14:00 IV Flush (NS 10 ml) 10 ml PRN PRN IV IV PROTOCOL; Start 11/26/18 at 14:30 Vancomycin HCl (Vanco Iv Per Pharmacy) VANCOMYCIN PER PHARMACY PER PROTOCOL XX ; Start 11/26/18 at 23:30 Levothyroxine Sodium (Synthroid Iv) 75 mcg DAILY@06 IV Last administered on 11/30/18at 06:10; Admin Dose 75 MCG; Start 11/28/18 at 06:00 Hydralazine HCl (Apresoline) 20 mg Q6H PRN IV SBP > 160 Last administered on 11/29/18at 12:33; Admin Dose 20 MG; Start 11/28/18 at 07:00 Amlodipine Besylate (Norvasc) 5 mg DAILY PO Last administered on 11/29/18at 08:35; Admin Dose 5 MG; Start 11/28/18 at 09:00 Albuterol/ Ipratropium (Duoneb) 3 ml Q4H RESP THERAPY PRN HHN SHORTNESS OF BREATH; Start 11/29/18 at 01:00 Nifedipine (Procardia Xl) 60 mg BID PO Last administered on 11/29/18at 23:46; Admin Dose 60 MG; Start 11/29/18 at 14:00 Potassium Chloride 100 ml @ 50 mls/hr ONCE IVPB ; Start 11/30/18 at 09:30; Stop 11/30/18 at 11:29 AVERY URBINA Nov 30, 2018 10:27
[2018-11-30] MEDS: METHYLPREDNISOLONE 40 MG INJ IV SCH ×2 (10:29→21:34)
[2018-11-30] MEDS: HEPARIN 5,000 UNIT/1 ML VIAL SC SCH ×3 (10:35→21:48)
--- NOTE | 2018-11-30 12:03 | CONS ---
Date/Time of Note Date/Time of Note DATE: 11/30/18 TIME: 12:00 Assessment/Plan Assessment/Plan Hospital Course IMPRESSION: 1. Shock, on dopamine pressor support at this time with previously preserved EF by most recent echo September 2018 of 60% to 65%.-improved off dopamine 2. Abnormal echocardiogram, assess for acute coronary syndrome. 3. Congestive heart failure, diastolic, acute on chronic, in the setting of renal failure. 4. Renal failure. 5. Anemia, status post transfusions. 6. Hyponatremia. 7. Urinary tract infection. 8. Tachycardia-c/w AF/AFL with RVR REcc: -ICU -follow BP closely on procardia XL/ Hold Norvasc as second CCB -start low dose BB -Continue abx's and f/u cx data -Follow volume status clsoely -Follow for recurrent bradycardia -Continue steroids/bronchodilators Result Diagram: 11/30/180 11/30/18 0450 Results 24hrs Laboratory Tests Test 11/30/18 04:50 White Blood Count 13.6 H Red Blood Count 3.13 L Hemoglobin 9.6 L Hematocrit 29.4 L Mean Corpuscular Volume 93.9 Mean Corpuscular Hemoglobin 30.7 Mean Corpuscular Hemoglobin Concent 32.7 Red Cell Distribution Width 16.0 H Platelet Count 133 #L Mean Platelet Volume 10.2 Immature Granulocytes % 1.000 H Neutrophils % 88.5 H Lymphocytes % 5.5 L Monocytes % 4.9 Eosinophils % 0.0 Basophils % 0.1 Nucleated Red Blood Cells % 0.3 H Immature Granulocytes # 0.130 H Neutrophils # 12.0 H Lymphocytes # 0.7 L Monocytes # 0.7 Eosinophils # 0.0 Basophils # 0.0 Nucleated Red Blood Cells # 0.0 Sodium Level 139 Potassium Level 3.2 L Chloride Level 94 L Carbon Dioxide Level 35 H Anion Gap 10 Blood Urea Nitrogen 46 #H Creatinine 3.41 #H Est Glomerular Filtrat Rate mL/min Glucose Level 146 Calcium Level 8.7 Consultation Date/Type/Reason Admit Date/Time Nov 26, 2018 at 11:28 Initial Consult Date 11/26/18 Type of Consult cardiology Reason for Consultation HTN Requesting Provider: KATIE MENDEZ Exam/Review of Systems Vital Signs Vitals Vital Signs Date Temp Pulse Resp B/P (MAP) Pulse Ox O2 O2 Flow FiO2 Time Delivery Rate 11/30/18 99.4 105 18 146/63 26 11:46 (90) 11/30/18 Nasal 5.0 08:48 Cannula 11/27/18 32 14:28 Intake and Output 11/29/18 11/29/18 11/30/18 1414:59 22:59 06:59 IntakeIntake Total 1660 ml OutputOutput Total 650 ml 100 ml BalanceBalance 1010 ml -100 ml Exam Review of Systems: CONSTITUTIONAL: No fevers, chills. PULMONARY: No sob CARDIOVASCULAR: No chest pain/palpitations GASTROINTESTINAL: No nausea/vomiting. GENITOURINARY: No hematuria/dysuria. MUSCULOSKELETAL: No myagias/arthalgias. PSYCHIATRIC: The patient denies depression. NEUROLOGIC: No weakness Constitutional: alert Psych: no complaints Head: normocephalic ENMT: mucosa pink and moist Neck: supple, jvd (9 cm water) Respiratory: diminished breath sounds Cardiovascular: regular rate and rhythm Gastrointestinal: soft, non-tender Musculoskeletal: muscle tone (normal) Extremities: edema (none) 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: other (No focal deficits) Medications Medications Current Medications Albuterol/ Ipratropium (Duoneb) 3 ml Q6HWA RESP THERAPY HHN Last administered on 11/30/18at 08:48; Admin Dose 3 ML; Start 11/26/18 at 08:00 Methylprednisolone Sodium Succinate (Solu-Medrol) 40 mg Q12 IV Last administered on 11/30/18at 10:29; Admin Dose 40 MG; Start 11/25/18 at 22:30 Acetaminophen (Tylenol Tab) 500 mg Q6H PRN PO MILD PAIN(1-3)OR ELEVATED TEMP L ast administered on 11/29/18at 12:32; Admin Dose 500 MG; Start 11/25/18 at 22:30 Heparin Sodium (Porcine) (Heparin (5000 Units/1ml)) 5,000 unit BID SC Last administered on 11/30/18at 10:35; Admin Dose 5,000 UNIT; Start 11/26/18 at 21:00 Albumin Human 50 ml @ 100 mls/hr WITH DIALYSIS PRN IV SBP lower than 90 mm Hg ; Start 11/26/18 at 14:00 Sodium Chloride (NS) -To prime the dialy... DIRECTED FOR HD PRN IV SBP lower than 90 mm Hg ; Start 11/26/18 at 14:00 IV Flush (NS 10 ml) 10 ml PRN PRN IV IV PROTOCOL; Start 11/26/18 at 14:30 Vancomycin HCl (Vanco Iv Per Pharmacy) VANCOMYCIN PER PHARMACY PER PROTOCOL XX ; Start 11/26/18 at 23:30 Levothyroxine Sodium (Synthroid Iv) 75 mcg DAILY@06 IV Last administered on 11/30/18at 06:10; Admin Dose 75 MCG; Start 11/28/18 at 06:00 Hydralazine HCl (Apresoline) 20 mg Q6H PRN IV SBP > 160 Last administered on 11/29/18at 12:33; Admin Dose 20 MG; Start 11/28/18 at 07:00 Amlodipine Besylate (Norvasc) 5 mg DAILY PO Last administered on 11/29/18at 08:35; Admin Dose 5 MG; Start 11/28/18 at 09:00 Albuterol/ Ipratropium (Duoneb) 3 ml Q4H RESP THERAPY PRN HHN SHORTNESS OF BREATH; Start 11/29/18 at 01:00 Nifedipine (Procardia Xl) 60 mg BID PO Last administered on 11/29/18at 23:46; Admin Dose 60 MG; Start 11/29/18 at 14:00 Cefepime HCl 50 ml @ 100 mls/hr Q24H IVPB ; Start 11/30/18 at 11:00 ALVINA GARCIA Nov 30, 2018 12:03
[2018-11-30] MEDS ORDERED: METOPROLOL 5 MG INJ IV PRN (12:30)
[2018-11-30] MEDS ORDERED: HEPARIN 1000 UNITS/ML 10 ML INJ ONE (14:24)
--- NOTE | 2018-11-30 14:36 | CONS ---
Date/Time of Note Date/Time of Note DATE: 11/30/18 TIME: 14:36 Assessment/Plan Assessment/Plan Assessment/Plan 1. Oliguric Acute kindey injury on CKD III due to ATN from septic shock, 2. Acute uremic encephalopathy 3. Acute hyperkalemia- resolved 4. Severe metabolic acidosis 5. Septic shock on pressors 2/2 UTI and bacteremia 6. acute hypoxemic respiraotry failure on BIPAP 7. acute on chronic,systolic and diastolic heart failure 8. H/o HTN 9. H/o COPD Plan: started on HD on 11/26/17- s/p HD today 2.5 L removed -pt will be on MWF schedule Right [facility]salina [facility] in Place- now we will plan for permacath placement, call to schedule permacath IV abx as per PMD, renally dose all abx and monitor electrolytes will follow up Result Diagram: 11/30/18 0450 11/30/18 0450 Results 24hrs Laboratory Tests Test 11/30/18 04:50 White Blood Count 13.6 H Red Blood Count 3.13 L Hemoglobin 9.6 L Hematocrit 29.4 L Mean Corpuscular Volume 93.9 Mean Corpuscular Hemoglobin 30.7 Mean Corpuscular Hemoglobin Concent 32.7 Red Cell Distribution Width 16.0 H Platelet Count 133 #L Mean Platelet Volume 10.2 Immature Granulocytes % 1.000 H Neutrophils % 88.5 H Lymphocytes % 5.5 L Monocytes % 4.9 Eosinophils % 0.0 Basophils % 0.1 Nucleated Red Blood Cells % 0.3 H Immature Granulocytes # 0.130 H Neutrophils # 12.0 H Lymphocytes # 0.7 L Monocytes # 0.7 Eosinophils # 0.0 Basophils # 0.0 Nucleated Red Blood Cells # 0.0 Sodium Level 139 Potassium Level 3.2 L Chloride Level 94 L Carbon Dioxide Level 35 H Anion Gap 10 Blood Urea Nitrogen 46 #H Creatinine 3.41 #H Est Glomerular Filtrat Rate mL/min Glucose Level 146 Calcium Level 8.7 Consultation Date/Type/Reason Admit Date/Time Nov 26, 2018 at 11:28 Initial Consult Date 11/26/18 Type of Consult NEPHROLOGY Requesting Provider: KATIE MENDEZ 24 HR Interval Summary Free Text/Dictation plan for HD today,a febrile, BP stable Exam/Review of Systems Vital Signs Vitals Vital Signs Date Temp Pulse Resp B/P (MAP) Pulse Ox O2 O2 Flow FiO2 Time Delivery Rate 11/30/18 98 14:00 11/30/18 22 97 Nasal 5.0 13:06 Cannula 11/30/18 99.4 146/63 11:46 (90) 11/27/18 32 14:28 Intake and Output 11/29/18 11/29/18 11/30/18 1515:00 23:00 07:00 IntakeIntake Total 1660 ml OutputOutput Total 650 ml 100 ml BalanceBalance 1010 ml -100 ml Exam Constitutional: alert, oriented x 2 ENMT: EDWAR EOMI, No JVD Respiratory: crackles/rales, diminished breath sounds Cardiovascular: regular rate and rhythm, nl pulses Gastrointestinal: soft, non-tender; ND, BS+ Musculoskeletal: other (eschar on L toe) Extremities: edema, pitting pedal edema, + right femoral Mic Catheter 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: lethargic Skin: ecchymosis (b/l UEs) Medications Medications Current Medications Albuterol/ Ipratropium (Duoneb) 3 ml Q6HWA RESP THERAPY HHN Last administered on 11/30/18at 13:06; Admin Dose 3 ML; Start 11/26/18 at 08:00 Methylprednisolone Sodium Succinate (Solu-Medrol) 40 mg Q12 IV Last administere d on 11/30/18at 10:29; Admin Dose 40 MG; Start 11/25/18 at 22:30 Acetaminophen (Tylenol Tab) 500 mg Q6H PRN PO MILD PAIN(1-3)OR ELEVATED TEMP Last administered on 11/29/18at 12:32; Admin Dose 500 MG; Start 11/25/18 at 22:30 Albumin Human 50 ml @ 100 mls/hr WITH DIALYSIS PRN IV SBP lower than 90 mm Hg ; Start 11/26/18 at 14:00 Sodium Chloride (NS) -To prime the dialy... DIRECTED FOR HD PRN IV SBP lower than 90 mm Hg ; Start 11/26/18 at 14:00 IV Flush (NS 10 ml) 10 ml PRN PRN IV IV PROTOCOL; Start 11/26/18 at 14:30 Vancomycin HCl (Vanco Iv Per Pharmacy) VANCOMYCIN PER PHARMACY PER PROTOCOL XX ; Start 11/26/18 at 23:30 Levothyroxine Sodium (Synthroid Iv) 75 mcg DAILY@06 IV Last administered on 11/30/18at 06:10; Admin Dose 75 MCG; Start 11/28/18 at 06:00 Hydralazine HCl (Apresoline) 20 mg Q6H PRN IV SBP > 160 Last administered on 11/29/18at 12:33; Admin Dose 20 MG; Start 11/28/18 at 07:00 Albuterol/ Ipratropium (Duoneb) 3 ml Q4H RESP THERAPY PRN HHN SHORTNESS OF BREATH; Start 11/29/18 at 01:00 Nifedipine (Procardia Xl) 60 mg BID PO Last administered on 11/29/18at 23:46; Admin Dose 60 MG; Start 11/29/18 at 14:00 Cefepime HCl 50 ml @ 100 mls/hr Q24H IVPB ; Start 11/30/18 at 11:00 Metoprolol Tartrate (Lopressor) 25 mg BID PO ; Start 11/30/18 at 21:00 Metoprolol Tartrate (Lopressor) 5 mg Q4H PRN IV HR>110 Hold SBP<100; Start 11/30/18 at 12:30 Heparin Sodium (Porcine) (Heparin (5000 Units/1ml)) 5,000 unit Q8 SC ; Start 11/30/18 at 14:00 GI HARTMAN MD Nov 30, 2018 14:36
--- NOTE | 2018-11-30 15:01 | PN ---
Date/Time of Note Date/Time of Note DATE: 11/30/18 TIME: 14:50 Assessment/Plan VTE Prophylaxis Risk score (from Ns)>0 risk: 10 SCD applied (from Ns): Yes Pharmacological prophylaxis: heparin Lines/Catheters [facility] PICC Line Central line still needed: Yes Urinary Cath still in place: Yes Reason Cath still needed: urinary retention Assessment/Plan Hospital Course Patient is currently undergoing hemodialysis continues on nasal cannula 5 L oxygen, patient is awake however confused, edematous. Assessment/Plan -Acute respiratory failure. Dr. Garcia is following in pulmonology consultation. -Sepsis secondary to UTI. Continue antibiotics per ID. Dr. Jordan is following in infection disease consultation. -S/p septic and cardiogenic shock -Left lower lobe pneumonia -Acute on chronic systolic and diastolic congestive heart failure. Dr. Iraheta is following in cardiology consultation. -ARF on CKD. Patient started on hemodialysis during this admission. Continue hemodialysis per nephrology. Dr Hill is following in nephrology consultation. -Pulmonary edema -DNR status Further recommendations based on clinical course. Plan of care discussed with Dr. Olivier. Result Diagram: 11/30/18 0450 11/30/18 0450 Results 24hrs Laboratory Tests Test 11/30/18 04:50 White Blood Count 13.6 H Red Blood Count 3.13 L Hemoglobin 9.6 L Hematocrit 29.4 L Mean Corpuscular Volume 93.9 Mean Corpuscular Hemoglobin 30.7 Mean Corpuscular Hemoglobin Concent 32.7 Red Cell Distribution Width 16.0 H Platelet Count 133 #L Mean Platelet Volume 10.2 Immature Granulocytes % 1.000 H Neutrophils % 88.5 H Lymphocytes % 5.5 L Monocytes % 4.9 Eosinophils % 0.0 Basophils % 0.1 Nucleated Red Blood Cells % 0.3 H Immature Granulocytes # 0.130 H Neutrophils # 12.0 H Lymphocytes # 0.7 L Monocytes # 0.7 Eosinophils # 0.0 Basophils # 0.0 Nucleated Red Blood Cells # 0.0 Sodium Level 139 Potassium Level 3.2 L Chloride Level 94 L Carbon Dioxide Level 35 H Anion Gap 10 Blood Urea Nitrogen 46 #H Creatinine 3.41 #H Est Glomerular Filtrat Rate mL/min Glucose Level 146 Calcium Level 8.7 Exam/Review of Systems Vital Signs Vitals Vital Signs Date Temp Pulse Resp B/P (MAP) Pulse Ox O2 O2 Flow FiO2 Time Delivery Rate 11/30/18 98 14:00 11/30/18 22 97 Nasal 5.0 13:06 Cannula 11/30/18 99.4 146/63 11:46 (90) 11/27/18 32 14:28 Intake and Output 11/29/18 11/29/18 11/30/18 1515:00 23:00 07:00 IntakeIntake Total 1660 ml OutputOutput Total 650 ml 100 ml BalanceBalance 1010 ml -100 ml Exam Constitutional: frail Neck: supple Respiratory: diminished breath sounds Cardiovascular: Irregular rhythm Gastrointestinal: soft, non-tender Extremities: normal pulses, edema 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: confused Medications Medications Current Medications Albuterol/ Ipratropium (Duoneb) 3 ml Q6HWA RESP THERAPY HHN Last administered on 11/30/18at 13:06; Admin Dose 3 ML; Start 11/26/18 at 08:00 Methylprednisolone Sodium Succinate (Solu-Medrol) 40 mg Q12 IV Last administered on 11/30/18at 10:29; Admin Dose 40 MG; Start 11/25/18 at 22:30 Acetaminophen (Tylenol Tab) 500 mg Q6H PRN PO MILD PAIN(1-3)OR ELEVATED TEMP Last administered on 11/29/18at 12:32; Admin Dose 500 MG; Start 11/25/18 at 22:30 Albumin Human 50 ml @ 100 mls/hr WITH DIALYSIS PRN IV SBP lower than 90 mm Hg ; Start 11/26/18 at 14:00 Sodium Chloride (NS) -To prime the dialy... DIRECTED FOR HD PRN IV SBP lower than 90 mm Hg ; Start 11/26/18 at 14:00 IV Flush (NS 10 ml) 10 ml PRN PRN IV IV PROTOCOL; Start 11/26/18 at 14:30 Vancomycin HCl (Vanco Iv Per Pharmacy) VANCOMYCIN PER PHARMACY PER PROTOCOL XX ; Start 11/26/18 at 23:30 Levothyroxine Sodium (Synthroid Iv) 75 mcg DAILY@06 IV Last administered on 11/30/18at 06:10; Admin Dose 75 MCG; Start 11/28/18 at 06:00 Hydralazine HCl (Apresoline) 20 mg Q6H PRN IV SBP > 160 Last administered on 11/29/18at 12:33; Admin Dose 20 MG; Start 11/28/18 at 07:00 Albuterol/ Ipratropium (Duoneb) 3 ml Q4H RESP THERAPY PRN HHN SHORTNESS OF BR EATH; Start 11/29/18 at 01:00 Nifedipine (Procardia Xl) 60 mg BID PO Last administered on 11/29/18at 23:46; Admin Dose 60 MG; Start 11/29/18 at 14:00 Cefepime HCl 50 ml @ 100 mls/hr Q24H IVPB ; Start 11/30/18 at 11:00 Metoprolol Tartrate (Lopressor) 25 mg BID PO ; Start 11/30/18 at 21:00 Metoprolol Tartrate (Lopressor) 5 mg Q4H PRN IV HR>110 Hold SBP<100; Start 11/30/18 at 12:30 Heparin Sodium (Porcine) (Heparin (5000 Units/1ml)) 5,000 unit Q8 SC ; Start 11/30/18 at 14:00 EDWAR VARGAS Nov 30, 2018 15:00
[2018-11-30] MEDS: CEFEPIME 1GM/50 ML (PMX) 50 ML IVPB SCH (15:23)
[2018-11-30] MEDS: NIFEdipine (XL) 60 MG TAB PO SCH ×2 (15:24→21:37)
[2018-11-30] MEDS ORDERED: HEPARIN 1000 UNITS/ML 10 ML INJ CATHETER ONE (15:30)
--- NOTE | 2018-11-30 16:51 | CONS ---
Date/Time of Note Date/Time of Note DATE: 11/30/18 TIME: 16:37 Assessment/Plan Assessment/Plan Hospital Course Assessment/Impression: - sepsis due to UTI possibly bacteremia although the latter could be a contaminant - UTI due to klebsiella and proteus - bacteremia 1/2 sets from 11/25/2018 due to coag negative Staph - also a component of SIRS due to acute hypoxic resp failure, acute on chronic renal failure - acute hypoxic resp failure, probably due to CHF exacerbation, off bipap - CHF exacerbation, improved after HD - acute on chronic renal failure, started on HD on 11/26/2018 - underlying COPD - CAD - hypothyroidism - TSH elevated and FT4 depressed - gout - eschar of L 4th toe, probably ischemic eschar/ischemia - acute encephalopathy due to sepsis, improving a little recommendations: - continue ceftriaxone (11/26/2018) for UTI - OK to d/c IV vancomycin (11/26/2018) management d/w Pt's RN Result Diagram: 11/30/18 0450 11/30/18 0450 Results 24hrs Laboratory Tests Test 11/30/18 04:50 White Blood Count 13.6 H Red Blood Count 3.13 L Hemoglobin 9.6 L Hematocrit 29.4 L Mean Corpuscular Volume 93.9 Mean Corpuscular Hemoglobin 30.7 Mean Corpuscular Hemoglobin Concent 32.7 Red Cell Distribution Width 16.0 H Platelet Count 133 #L Mean Platelet Volume 10.2 Immature Granulocytes % 1.000 H Neutrophils % 88.5 H Lymphocytes % 5.5 L Monocytes % 4.9 Eosinophils % 0.0 Basophils % 0.1 Nucleated Red Blood Cells % 0.3 H Immature Granulocytes # 0.130 H Neutrophils # 12.0 H Lymphocytes # 0.7 L Monocytes # 0.7 Eosinophils # 0.0 Basophils # 0.0 Nucleated Red Blood Cells # 0.0 Sodium Level 139 Potassium Level 3.2 L Chloride Level 94 L Carbon Dioxide Level 35 H Anion Gap 10 Blood Urea Nitrogen 46 #H Creatinine 3.41 #H Est Glomerular Filtrat Rate mL/min Glucose Level 146 Calcium Level 8.7 Consultation Date/Type/Reason Admit Date/Time Nov 26, 2018 at 11:28 Initial Consult Date 11/27/18 Type of Consult ID Requesting Provider: KATIE MENDEZ 24 HR Interval Summary Subjective hx not possible: other (confused) Constitutional: disoriented; No febrile Detailed Summary Eyes: other (confused and Pt did not answer the question) ENT: other (confused and Pt did not answer the question) Respiratory: No cough Cardiovascular: No chest pain Gastrointestinal: No no complaints Genitourinary: other (+Alvarado catheter) Musculoskeletal: No bone/joint pain Skin: other (confused and Pt did not answer the question) Neurologic: other (confused and Pt did not answer the question) Exam/Review of Systems Vital Signs Vitals Vital Signs Date Temp Pulse Resp B/P (MAP) Pulse Ox O2 O2 Flow FiO2 Time Delivery Rate 11/30/18 99.5 112 18 115/59 90 Nasal 15:48 (77) Cannula 11/30/18 5.0 14:59 11/27/18 32 14:28 Intake and Output 11/29/18 11/29/18 11/30/18 1515:00 23:00 07:00 IntakeIntake Total 1660 ml OutputOutput Total 650 ml 100 ml BalanceBalance 1010 ml -100 ml Exam Constitutional: frail, obese, other (talking non-sense) Psych: confusion Head: normocephalic, atraumatic Eyes: nl conjunctiva, nl lids, nl sclera ENMT: nl external ears & nose, nl lips & teeth, nl nasal mucosa & septum, mucosa pink and moist Neck: other (not swollen) Respiratory: other (poort inspiratory effort, CTA b/l) Cardiovascular: regular rate and rhythm, nl pulses Gastrointestinal: soft, non-tender; No distended Genitourinary - Female: other (FC) Musculoskeletal: nl extremities to inspection; No joint tenderness, No swelling Extremities: edema (non-pitting edema of b/l UEs, trace edema of b/l LE) 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: confused, lethargic Skin: ecchymosis (b/l UE, R dorsal hand) Medications Medications Current Medications Albuterol/ Ipratropium (Duoneb) 3 ml Q6HWA RESP THERAPY HHN Last administered on 11/30/18at 13:06; Admin Dose 3 ML; Start 11/26/18 at 08:00 Methylprednisolone Sodium Succinate (Solu-Medrol) 40 mg Q12 IV Last administered on 11/30/18at 10:29; Admin Dose 40 MG; Start 11/25/18 at 22:30 Acetaminophen (Tylenol Tab) 500 mg Q6H PRN PO MILD PAIN(1-3)OR ELEVATED TEMP Last administered on 11/29/18at 12:32; Admin Dose 500 MG; Start 11/25/18 at 22:30 Albumin Human 50 ml @ 100 mls/hr WITH DIALYSIS PRN IV SBP lower than 90 mm Hg ; Start 11/26/18 at 14:00 Sodium Chloride (NS) -To prime the dialy... DIRECTED FOR HD PRN IV SBP lower than 90 mm Hg ; Start 11/26/18 at 14:00 IV Flush (NS 10 ml) 10 ml PRN PRN IV IV PROTOCOL; Start 11/26/18 at 14:30 Vancomycin HCl (Vanco Iv Per Pharmacy) VANCOMYCIN PER PHARMACY PER PROTOCOL XX ; Start 11/26/18 at 23:30 Levothyroxine Sodium (Synthroid Iv) 75 mcg DAILY@06 IV Last administered on 11/30/18at 06:10; Admin Dose 75 MCG; Start 11/28/18 at 06:00 Hydralazine HCl (Apresoline) 20 mg Q6H PRN IV SBP > 160 Last administered on 11/29/18at 12:33; Admin Dose 20 MG; Start 11/28/18 at 07:00 Albuterol/ Ipratropium (Duoneb) 3 ml Q4H RESP THERAPY PRN HHN SHORTNESS OF BREATH; Start 11/29/18 at 01:00 Nifedipine (Procardia Xl) 60 mg BID PO Last administered on 11/30/18at 15:24; Admin Dose 60 MG; Start 11/29/18 at 14:00 Cefepime HCl 50 ml @ 100 mls/hr Q24H IVPB Last administered on 11/30/18at 15:23; Admin Dose 100 MLS/HR; Start 11/30/18 at 11:00 Metoprolol Tartrate (Lopressor) 25 mg BID PO ; Start 11/30/18 at 21:00 Metoprolol Tartrate (Lopressor) 5 mg Q4H PRN IV HR>110 Hold SBP<100; Start 11/30/18 at 12:30 Heparin Sodium (Porcine) (Heparin (5000 Units/1ml)) 5,000 unit Q8 SC Last administered on 11/30/18at 15:31; Admin Dose 5,000 UNIT; Start 11/30/18 at 14:00 RICHARD MOBLEY M.D. Nov 30, 2018 16:47
[2018-11-30] MEDS ORDERED: CEFEPIME 1GM/50 ML (PMX) 50 ML IVPB SCH (21:00)
[2018-11-30] MEDS: METOPROLOL 25 MG TAB PO SCH (21:37)
[2018-12-01] VITALS (28 sets, daily range): BP systolic 89–150; BP diastolic 49–93; PULSE 74–119; RESP 18–24
[2018-12-01] MEDS: LEVOTHYROXINE 100 MCG VIAL IV SCH (05:18)
[2018-12-01] MEDS: HEPARIN 5,000 UNIT/1 ML VIAL SC SCH ×3 (05:34→21:24)
[2018-12-01] MEDS: ALBUTEROL/IPRATROPIUM (NEB) 3 ML AMP HHN SCH ×3 (08:03→21:36)
[2018-12-01] MEDS ORDERED: FUROSEMIDE 40 MG INJ IV ONE (08:30)
[2018-12-01] MEDS: METHYLPREDNISOLONE 40 MG INJ IV SCH (08:53)
--- NOTE | 2018-12-01 09:26 | CONS ---
Date/Time of Note Date/Time of Note DATE: 12/01/18 TIME: 09:26 Assessment/Plan Assessment/Plan Result Diagram: 12/01/18 0443 12/01/18 0443 Results 24hrs Laboratory Tests Test 12/01/18 04:43 12/01/18 08:13 White Blood Count 15.2 H Red Blood Count 3.00 L Hemoglobin 9.2 L Hematocrit 28.7 L Mean Corpuscular Volume 95.7 Mean Corpuscular Hemoglobin 30.7 Mean Corpuscular Hemoglobin Concent 32.1 Red Cell Distribution Width 15.9 H Platelet Count 133 L Mean Platelet Volume 10.4 Immature Granulocytes % 0.700 H Neutrophils % 93.4 H Lymphocytes % 3.6 L Monocytes % 2.2 Eosinophils % 0.0 Basophils % 0.1 Nucleated Red Blood Cells % 0.5 H Immature Granulocytes # 0.110 H Neutrophils # 14.1 H Lymphocytes # 0.6 L Monocytes # 0.3 Eosinophils # 0.0 Basophils # 0.0 Nucleated Red Blood Cells # 0.1 H Sodium Level 140 Potassium Level 3.7 Chloride Level 99 Carbon Dioxide Level 33 H Anion Gap 8 Blood Urea Nitrogen 57 H Creatinine 3.06 H Est Glomerular Filtrat Rate mL/min Glucose Level 133 Calcium Level 8.7 Blood Gas Specimen Source Blood arterial Arterial Blood Date Drawn 12/01/2018 8:35:25 AM Arterial Blood pH (Temp corrected) 7.515 H Arterial Blood pCO2 (Temp correct) 39.2 Arterial Blood pO2 (Temp corrected) 75.4 L Arterial Blood HCO3 30.9 H Arterial Blood Base Excess 7.5 H Arterial Blood Oxygen Saturation 95.4 Rei Test ACCEPTAB Arterial Blood Gas Puncture Site Left Radial Arterial Blood Carboxyhemoglobin 0.3 Arterial Blood Methemoglobin 0.3 Blood Gas A-a O2 Differential 164.7 H Oxyhemoglobin Percent 94.8 Blood Gas Temperature 37.0 Blood Gas Respiration Rate 24.0 Blood Gas Actual Respiration Rate 26 Blood Gas Modality MASK - BIPAP FiO2 40.0 Blood Gas Pressure Support 12 Blood Gas IPAP/EPAP Ratio 20/8 Blood Gas Notified Whom TM Blood Gas Notified Time 12/01/2018 8:43:10 AM Consultation Date/Type/Reason Admit Date/Time Nov 26, 2018 at 11:28 Initial Consult Date 11/26/18 Type of Consult NEPHROLOGY Requesting Provider: KATIE MENDEZ Exam/Review of Systems Vital Signs Vitals Vital Signs Date Temp Pulse Resp B/P (MAP) Pulse Ox O2 O2 Flow FiO2 Time Delivery Rate 12/01/18 107 95 40 08:17 12/01/18 24 Nasal 5.0 08:03 Cannula 12/01/18 98.0 130/67 07:41 (88) Intake and Output 11/30/18 11/30/18 12/01/18 1515:00 23:00 07:00 IntakeIntake Total 100 ml 480 ml 100 ml OutputOutput Total 2900 ml 200 ml 150 ml BalanceBalance -2800 ml 280 ml -50 ml Medications Medications Current Medications Albuterol/ Ipratropium (Duoneb) 3 ml Q6HWA RESP THERAPY HHN Last administered on 12/01/18at 08:03; Admin Dose 3 ML; Start 11/26/18 at 08:00 Methylprednisolone Sodium Succinate (Solu-Medrol) 40 mg Q12 IV Last administered on 12/01/18at 08:53; Admin Dose 40 MG; Start 11/25/18 at 22:30 Acetaminophen (Tylenol Tab) 500 mg Q6H PRN PO MILD PAIN(1-3)OR ELEVATED TEMP Last administered on 11/29/18at 12:32; Admin Dose 500 MG; Start 11/25/18 at 22:30 Albumin Human 50 ml @ 100 mls/hr WITH DIALYSIS PRN IV SBP lower than 90 mm Hg ; Start 11/26/18 at 14:00 Sodium Chloride (NS) -To prime the dialy... DIRECTED FOR HD PRN IV SBP lower than 90 mm Hg ; Start 11/26/18 at 14:00 IV Flush (NS 10 ml) 10 ml PRN PRN IV IV PROTOCOL; Start 11/26/18 at 14:30 Levothyroxine Sodium (Synthroid Iv) 75 mcg DAILY@06 IV Last administered on 12/01/18at 05:18; Admin Dose 75 MCG; Start 11/28/18 at 06:00 Hydralazine HCl (Apresoline) 20 mg Q6H PRN IV SBP > 160 Last administered on 11/29/18at 12:33; Admin Dose 20 MG; Start 11/28/18 at 07:00 Albuterol/ Ipratropium (Duoneb) 3 ml Q4H RESP THERAPY PRN HHN SHORTNESS OF BREATH; Start 11/29/18 at 01:00 Nifedipine (Procardia Xl) 60 mg BID PO Last administered on 11/30/18at 21:37; Admin Dose 60 MG; Start 11/29/18 at 14:00 Cefepime HCl 50 ml @ 100 mls/hr Q24H IVPB Last administered on 11/30/18at 15:23; Admin Dose 100 MLS/HR; Start 11/30/18 at 11:00 Metoprolol Tartrate (Lopressor) 25 mg BID PO Last administered on 11/30/18at 21:37; Admin Dose 25 MG; Start 11/30/18 at 21:00 Metoprolol Tartrate (Lopressor) 5 mg Q4H PRN IV HR>110 Hold SBP<100; Start 11/30/18 at 12:30 Heparin Sodium (Porcine) (Heparin (5000 Units/1ml)) 5,000 unit Q8 SC Last administered on 12/01/18at 05:34; Admin Dose 5,000 UNIT; Start 11/30/18 at 14:00 GI HARTMAN MD Dec 01, 2018 09:26
--- NOTE | 2018-12-01 09:27 | CONS ---
Date/Time of Note Date/Time of Note DATE: 12/01/18 TIME: 09:25 Assessment/Plan Assessment/Plan Assessment/Plan 1. Shock, on dopamine pressor support at this time with previously preserved EF by most recent echo September 2018 of 60% to 65%.-improved off dopamine - better now, but withmore confusion and incresed fluid retention - additional HD planned today 2. Abnormal echocardiogram, assess for acute coronary syndrome - a. fib - rate controlled. 3. Congestive heart failure, diastolic, acute on chronic, in the setting of renal failure - remove fluid with HD. 4. Renal failure. 5. Anemia, status post transfusions - H/H satble now. 6. Hyponatremia. 7. Urinary tract infection. 8. Tachycardia-c/w AF/AFL with RVR - rate overall controlled under 100, will monitor now, Result Diagram: 12/01/18 0443 12/01/18 0443 Results 24hrs Laboratory Tests Test 12/01/18 04:43 12/01/18 08:13 White Blood Count 15.2 H Red Blood Count 3.00 L Hemoglobin 9.2 L Hematocrit 28.7 L Mean Corpuscular Volume 95.7 Mean Corpuscular Hemoglobin 30.7 Mean Corpuscular Hemoglobin Concent 32.1 Red Cell Distribution Width 15.9 H Platelet Count 133 L Mean Platelet Volume 10.4 Immature Granulocytes % 0.700 H Neutrophils % 93.4 H Lymphocytes % 3.6 L Monocytes % 2.2 Eosinophils % 0.0 Basophils % 0.1 Nucleated Red Blood Cells % 0.5 H Immature Granulocytes # 0.110 H Neutrophils # 14.1 H Lymphocytes # 0.6 L Monocytes # 0.3 Eosinophils # 0.0 Basophils # 0.0 Nucleated Red Blood Cells # 0.1 H Sodium Level 140 Potassium Level 3.7 Chloride Level 99 Carbon Dioxide Level 33 H Anion Gap 8 Blood Urea Nitrogen 57 H Creatinine 3.06 H Est Glomerular Filtrat Rate mL/min Glucose Level 133 Calcium Level 8.7 Blood Gas Specimen Source Blood arterial Arterial Blood Date Drawn 12/01/2018 8:35:25 AM Arterial Blood pH (Temp corrected) 7.515 H Arterial Blood pCO2 (Temp correct) 39.2 Arterial Blood pO2 (Temp corrected) 75.4 L Arterial Blood HCO3 30.9 H Arterial Blood Base Excess 7.5 H Arterial Blood Oxygen Saturation 95.4 Rei Test ACCEPTAB Arterial Blood Gas Puncture Site Left Radial Arterial Blood Carboxyhemoglobin 0.3 Arterial Blood Methemoglobin 0.3 Blood Gas A-a O2 Differential 164.7 H Oxyhemoglobin Percent 94.8 Blood Gas Temperature 37.0 Blood Gas Respiration Rate 24.0 Blood Gas Actual Respiration Rate 26 Blood Gas Modality MASK - BIPAP FiO2 40.0 Blood Gas Pressure Support 12 Blood Gas IPAP/EPAP Ratio 20/8 Blood Gas Notified Whom TM Blood Gas Notified Time 12/01/2018 8:43:10 AM Consultation Date/Type/Reason Admit Date/Time Nov 26, 2018 at 11:28 Initial Consult Date 11/27/18 Requesting Provider: KATIE MENDEZ 24 HR Interval Summary Free Text/Dictation Pt more confused - i. afib - with fluid overload - additional HD planned today. ROS: No fever, no chills, no nausea, no vomiting, no diarrhea/constipation No recent weight changes No chest pain, no PND, no orthopnea - increased SOB, Confusion per nurse No dizziness, blurred vision No thirst, no heat or cold intolerance Exam/Review of Systems Vital Signs Vitals Vital Signs Date Temp Pulse Resp B/P (MAP) Pulse Ox O2 O2 Flow FiO2 Time Delivery Rate 12/01/18 107 95 40 08:17 12/01/18 24 Nasal 5.0 08:03 Cannula 12/01/18 98.0 130/67 07:41 (88) Intake and Output 11/30/18 11/30/18 12/01/18 1515:00 23:00 07:00 IntakeIntake Total 100 ml 480 ml 100 ml OutputOutput Total 2900 ml 200 ml 150 ml BalanceBalance -2800 ml 280 ml -50 ml Exam General: WN/WD/NAD, AOx 1 HEENT: Unicetric/atraumatic/EOMI (does not follow commands) NECK: JVD elevated 9 cm , no thyromegaly, Lymph: no lymphadenopathy HEART: regular with no S3, II/ systolic murmur at apex + S3 LUNGS: Coarse sounds ABD: soft, NT, ND, +BS : Intact Neuro: non focal SKIN: chronic changes EXT: + edema Medications Medications Current Medications Albuterol/ Ipratropium (Duoneb) 3 ml Q6HWA RESP THERAPY HHN Last administered on 12/01/18at 08:03; Admin Dose 3 ML; Start 11/26/18 at 08:00 Methylprednisolone Sodium Succinate (Solu-Medrol) 40 mg Q12 IV Last administered on 12/01/18at 08:53; Admin Dose 40 MG; Start 11/25/18 at 22:30 Acetaminophen (Tylenol Tab) 500 mg Q6H PRN PO MILD PAIN(1-3)OR ELEVATED TEMP Last administered on 11/29/18at 12:32; Admin Dose 500 MG; Start 11/25/18 at 22:30 Albumin Human 50 ml @ 100 mls/hr WITH DIALYSIS PRN IV SBP lower than 90 mm Hg ; Start 11/26/18 at 14:00 Sodium Chloride (NS) -To prime the dialy... DIRECTED FOR HD PRN IV SBP lower than 90 mm Hg ; Start 11/26/18 at 14:00 IV Flush (NS 10 ml) 10 ml PRN PRN IV IV PROTOCOL; Start 11/26/18 at 14:30 Levothyroxine Sodium (Synthroid Iv) 75 mcg DAILY@06 IV Last administered on 12/01/18at 05:18; Admin Dose 75 MCG; Start 11/28/18 at 06:00 Hydralazine HCl (Apresoline) 20 mg Q6H PRN IV SBP > 160 Last administered on 11/29/18at 12:33; Admin Dose 20 MG; Start 11/28/18 at 07:00 Albuterol/ Ipratropium (Duoneb) 3 ml Q4H RESP THERAPY PRN HHN SHORTNESS OF BREATH; Start 11/29/18 at 01:00 Nifedipine (Procardia Xl) 60 mg BID PO Last administered on 11/30/18at 21:37; Admin Dose 60 MG; Start 11/29/18 at 14:00 Cefepime HCl 50 ml @ 100 mls/hr Q24H IVPB Last administered on 11/30/18at 15:23; Admin Dose 100 MLS/HR; Start 11/30/18 at 11:00 Metoprolol Tartrate (Lopressor) 25 mg BID PO Last administered on 11/30/18at 21:37; Admin Dose 25 MG; Start 11/30/18 at 21:00 Metoprolol Tartrate (Lopressor) 5 mg Q4H PRN IV HR>110 Hold SBP<100; Start 1/7/19 at 12:30 Heparin Sodium (Porcine) (Heparin (5000 Units/1ml)) 5,000 unit Q8 SC Last administered on 12/01/18at 05:34; Admin Dose 5,000 UNIT; Start 11/30/18 at 14:00 MICHELLE COLEMAN MD Dec 01, 2018 09:27
--- NOTE | 2018-12-01 10:27 | CONS ---
Date/Time of Note Date/Time of Note DATE: 12/01/18 TIME: 10:27 Assessment/Plan Assessment/Plan Assessment/Plan 1. Oliguric Acute kindey injury on CKD III due to ATN from septic shock, 2. Acute uremic encephalopathy 3. Acute hyperkalemia- resolved 4. Severe metabolic acidosis 5. Septic shock on pressors 2/2 UTI and bacteremia 6. acute hypoxemic respiraotry failure on BIPAP 7. acute on chronic,systolic and diastolic heart failure 8. H/o HTN 9. H/o COPD Plan: started on HD on 11/26/17- pt was hypxoic today AM, place don BIPAP, s/p extra HD today 2.4 L removed, HD ordered for tomorrow then -pt will be on MWF schedule Right [place] in Place-we will wait for pt to be more stable and lie flat before considering for permacath IV abx as per PMD, renally dose all abx and monitor electrolytes will follow up Result Diagram: 12/01/18 0443 12/01/18 0443 Results 24hrs Laboratory Tests Test 12/01/18 04:43 12/01/18 08:13 White Blood Count 15.2 H Red Blood Count 3.00 L Hemoglobin 9.2 L Hematocrit 28.7 L Mean Corpuscular Volume 95.7 Mean Corpuscular Hemoglobin 30.7 Mean Corpuscular Hemoglobin Concent 32.1 Red Cell Distribution Width 15.9 H Platelet Count 133 L Mean Platelet Volume 10.4 Immature Granulocytes % 0.700 H Neutrophils % 93.4 H Lymphocytes % 3.6 L Monocytes % 2.2 Eosinophils % 0.0 Basophils % 0.1 Nucleated Red Blood Cells % 0.5 H Immature Granulocytes # 0.110 H Neutrophils # 14.1 H Lymphocytes # 0.6 L Monocytes # 0.3 Eosinophils # 0.0 Basophils # 0.0 Nucleated Red Blood Cells # 0.1 H Sodium Level 140 Potassium Level 3.7 Chloride Level 99 Carbon Dioxide Level 33 H Anion Gap 8 Blood Urea Nitrogen 57 H Creatinine 3.06 H Est Glomerular Filtrat Rate mL/min Glucose Level 133 Calcium Level 8.7 Blood Gas Specimen Source Blood arterial Arterial Blood Date Drawn 12/01/2018 8:35:25 AM Arterial Blood pH (Temp corrected) 7.515 H Arterial Blood pCO2 (Temp correct) 39.2 Arterial Blood pO2 (Temp corrected) 75.4 L Arterial Blood HCO3 30.9 H Arterial Blood Base Excess 7.5 H Arterial Blood Oxygen Saturation 95.4 Rei Test ACCEPTAB Arterial Blood Gas Puncture Site Left Radial Arterial Blood Carboxyhemoglobin 0.3 Arterial Blood Methemoglobin 0.3 Blood Gas A-a O2 Differential 164.7 H Oxyhemoglobin Percent 94.8 Blood Gas Temperature 37.0 Blood Gas Respiration Rate 24.0 Blood Gas Actual Respiration Rate 26 Blood Gas Modality MASK - BIPAP FiO2 40.0 Blood Gas Pressure Support 12 Blood Gas IPAP/EPAP Ratio 13/07 Blood Gas Notified Whom TM Blood Gas Notified Time 12/01/2018 8:43:10 AM Consultation Date/Type/Reason Admit Date/Time Nov 26, 2018 at 11:28 Initial Consult Date 11/26/18 Type of Consult NEPHROLOGY Requesting Provider: KATIE MENDEZ 24 HR Interval Summary Free Text/Dictation pt was hypoxic today AM, placed on BIPAP, no Fever Exam/Review of Systems Vital Signs Vitals Vital Signs Date Temp Pulse Resp B/P (MAP) Pulse Ox O2 O2 Flow FiO2 Time Delivery Rate 12/01/18 Nasal 5.0 10:20 Cannula 12/01/18 106 09:46 12/01/18 95 40 08:17 12/01/18 24 08:03 12/01/18 98.0 130/67 07:41 (88) Intake and Output 11/30/18 11/30/18 12/01/18 1515:00 23:00 07:00 IntakeIntake Total 100 ml 480 ml 100 ml OutputOutput Total 2900 ml 200 ml 150 ml BalanceBalance -2800 ml 280 ml -50 ml Exam Constitutional: moderate distress on BIPAP Respiratory: crackles/rales, diminished breath sounds Cardiovascular: regular rate and rhythm, nl pulses Gastrointestinal: soft, non-tender; ND, BS+ Musculoskeletal: other (eschar on L toe) Extremities: edema, pitting pedal edema, + right femoral Mic Catheter 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: lethargic, non focal Medications Medications Current Medications Albuterol/ Ipratropium (Duoneb) 3 ml Q6HWA RESP THERAPY HHN Last administered on 12/01/18at 08:03; Admin Dose 3 ML; Start 11/26/18 at 08:00 Methylprednisolone Sodium Succinate (Solu-Medrol) 40 mg Q12 IV Last admin istered on 12/01/18 08:53; Admin Dose 40 MG; Start 11/25/18 at 22:30 Acetaminophen (Tylenol Tab) 500 mg Q6H PRN PO MILD PAIN(1-3)OR ELEVATED TEMP Last administered on 11/29/18 12:32; Admin Dose 500 MG; Start 11/25/18 at 22:30 Albumin Human 50 ml @ 100 mls/hr WITH DIALYSIS PRN IV SBP lower than 90 mm Hg ; Start 11/26/18 at 14:00 Sodium Chloride (NS) -To prime the dialy... DIRECTED FOR HD PRN IV SBP lower than 90 mm Hg ; Start 11/26/18 at 14:00 IV Flush (NS 10 ml) 10 ml PRN PRN IV IV PROTOCOL; Start 11/26/18 at 14:30 Levothyroxine Sodium (Synthroid Iv) 75 mcg DAILY@06 IV Last administered on 12/01/18 05:18; Admin Dose 75 MCG; Start 11/28/18 at 06:00 Hydralazine HCl (Apresoline) 20 mg Q6H PRN IV SBP > 160 Last administered on 11/29/18 12:33; Admin Dose 20 MG; Start 11/28/18 at 07:00 Albuterol/ Ipratropium (Duoneb) 3 ml Q4H RESP THERAPY PRN HHN SHORTNESS OF BREATH; Start 11/29/18 at 01:00 Nifedipine (Procardia Xl) 60 mg BID PO Last administered on 11/30/18 21:37; Admin Dose 60 MG; Start 11/29/18 at 14:00 Cefepime HCl 50 ml @ 100 mls/hr Q24H IVPB Last administered on 11/30/18at 15:23; Admin Dose 100 MLS/HR; Start 11/30/18 at 11:00 Metoprolol Tartrate (Lopressor) 25 mg BID PO Last administered on 11/30/18 21:37; Admin Dose 25 MG; Start 11/30/18 at 21:00 Metoprolol Tartrate (Lopressor) 5 mg Q4H PRN IV HR>110 Hold SBP<100; Start 11/30/18 at 12:30 Heparin Sodium (Porcine) (Heparin (5000 Units/1ml)) 5,000 unit Q8 SC Last administered on 12/01/18at 05:34; Admin Dose 5,000 UNIT; Start 11/30/18 at 14:00 GI HARTMAN MD Dec 01, 2018 10:27
[2018-12-01] MEDS ORDERED: ALBUMIN HUMAN 25% 100 ML ONE (10:37)
--- NOTE | 2018-12-01 11:15 | CONS ---
Date/Time of Note Date/Time of Note DATE: 12/01/18 TIME: 11:12 Assessment/Plan Assessment/Plan Assessment/Plan Chest x-ray showing pulmonary edema with cardiomegaly. Assessment and recommendations; 1. Patient with history of underlying cardiomyopathy admitted for shortness of breath due to pulmonary edema as well as A. fib with RVR. 2. Episode of shortness of breath and hypoxemia this morning, relieved by getting hemodialysis at bedside. 3. Chronic atrial fibrillation. 4. Cardiomyopathy. 5. Culture is negative staph aureus bacteremia. Possibly contamination. 6. Klebsiella and Proteus UTI. Currently on appropriate antimicrobial regimen. 7. Mild anemia and thrombocytopenia. 8. History of hypertension. 9. History of hypothyroidism. Continue current supportive care. Discontinue Solu-Medrol. Result Diagram: 12/01/1844212/01/18442 Results 24hrs Laboratory Tests Test 12/01/18 04:43 12/01/18 08:13 White Blood Count 15.2 H Red Blood Count 3.00 L Hemoglobin 9.2 L Hematocrit 28.7 L Mean Corpuscular Volume 95.7 Mean Corpuscular Hemoglobin 30.7 Mean Corpuscular Hemoglobin Concent 32.1 Red Cell Distribution Width 15.9 H Platelet Count 133 L Mean Platelet Volume 10.4 Immature Granulocytes % 0.700 H Neutrophils % 93.4 H Lymphocytes % 3.6 L Monocytes % 2.2 Eosinophils % 0.0 Basophils % 0.1 Nucleated Red Blood Cells % 0.5 H Immature Granulocytes # 0.110 H Neutrophils # 14.1 H Lymphocytes # 0.6 L Monocytes # 0.3 Eosinophils # 0.0 Basophils # 0.0 Nucleated Red Blood Cells # 0.1 H Sodium Level 140 Potassium Level 3.7 Chloride Level 99 Carbon Dioxide Level 33 H Anion Gap 8 Blood Urea Nitrogen 57 H Creatinine 3.06 H Est Glomerular Filtrat Rate mL/min Glucose Level 133 Calcium Level 8.7 Blood Gas Specimen Source Blood arterial Arterial Blood Date Drawn 12/01/2018 8:35:25 AM Arterial Blood pH (Temp corrected) 7.515 H Arterial Blood pCO2 (Temp correct) 39.2 Arterial Blood pO2 (Temp corrected) 75.4 L Arterial Blood HCO3 30.9 H Arterial Blood Base Excess 7.5 H Arterial Blood Oxygen Saturation 95.4 Rei Test ACCEPTAB Arterial Blood Gas Puncture Site Left Radial Arterial Blood Carboxyhemoglobin 0.3 Arterial Blood Methemoglobin 0.3 Blood Gas A-a O2 Differential 164.7 H Oxyhemoglobin Percent 94.8 Blood Gas Temperature 37.0 Blood Gas Respiration Rate 24.0 Blood Gas Actual Respiration Rate 26 Blood Gas Modality MASK - BIPAP FiO2 40.0 Blood Gas Pressure Support 12 Blood Gas IPAP/EPAP Ratio 13/07 Blood Gas Notified Whom TM Blood Gas Notified Time 12/01/2018 8:43:10 AM Consultation Date/Type/Reason Admit Date/Time Nov 26, 2018 at 11:28 Initial Consult Date 11/27/18 Type of Consult Pulmonary Requesting Provider: KATIE MENDEZ 24 HR Interval Summary Free Text/Dictation Patient had an episode of hypoxemia this morning. Currently getting hem odialysis with improvement in symptoms. General exam; elderly female, getting hemodialysis at bedside. Currently no distress. Awake and alert. Exam/Review of Systems Vital Signs Vitals Vital Signs Date Temp Pulse Resp B/P (MAP) Pulse Ox O2 O2 Flow FiO2 Time Delivery Rate 12/01/18 Nasal 5.0 10:20 Cannula 12/01/18 106 09:46 12/01/18 95 40 08:17 12/01/18 24 08:03 12/01/18 98.0 130/67 07:41 (88) Intake and Output 11/30/18 11/30/18 12/01/18 1515:00 23:00 07:00 IntakeIntake Total 100 ml 480 ml 100 ml OutputOutput Total 2900 ml 200 ml 150 ml BalanceBalance -2800 ml 280 ml -50 ml Exam HEENT exam; supple neck, positive JVD. No lymphadenopathy. Midline trachea. No thyromegaly. Patient has carious teeth. Chest exam; diminished but clear breath sounds. S1-S2 audible, no murmurs. Irregular rhythm. Abdomen exam; soft, no organomegaly. Nontender. Bowel sounds audible. Extremity exam; no peripheral edema. DATA [employer] exam; no focal deficit. Medications Medications Current Medications Albuterol/ Ipratropium (Duoneb) 3 ml Q6HWA RESP THERAPY HHN Last administered on 12/01/18at 08:03; Admin Dose 3 ML; Start 11/26/18 at 08:00 Methylprednisolone Sodium Succinate (Solu-Medrol) 40 mg Q12 IV Last admi nistered on 12/01/18at 08:53; Admin Dose 40 MG; Start 11/25/18 at 22:30 Acetaminophen (Tylenol Tab) 500 mg Q6H PRN PO MILD PAIN(1-3)OR ELEVATED TEMP Last administered on 11/29/18 12:32; Admin Dose 500 MG; Start 11/25/18 at 22:30 Albumin Human 50 ml @ 100 mls/hr WITH DIALYSIS PRN IV SBP lower than 90 mm Hg ; Start 11/26/18 at 14:00 Sodium Chloride (NS) -To prime the dialy... DIRECTED FOR HD PRN IV SBP lower than 90 mm Hg ; Start 11/26/18 at 14:00 IV Flush (NS 10 ml) 10 ml PRN PRN IV IV PROTOCOL; Start 11/26/18 at 14:30 Levothyroxine Sodium (Synthroid Iv) 75 mcg DAILY@06 IV Last administered on 12/01/18 05:18; Admin Dose 75 MCG; Start 11/28/18 at 06:00 Hydralazine HCl (Apresoline) 20 mg Q6H PRN IV SBP > 160 Last administered on 11/29/18at 12:33; Admin Dose 20 MG; Start 11/28/18 at 07:00 Albuterol/ Ipratropium (Duoneb) 3 ml Q4H RESP THERAPY PRN HHN SHORTNESS OF BREATH; Start 11/29/18 at 01:00 Nifedipine (Procardia Xl) 60 mg BID PO Last administered on 11/30/18 21:37; Admin Dose 60 MG; Start 11/29/18 at 14:00 Cefepime HCl 50 ml @ 100 mls/hr Q24H IVPB Last administered on 11/30/18 15:23; Admin Dose 100 MLS/HR; Start 11/30/18 at 11:00 Metoprolol Tartrate (Lopressor) 25 mg BID PO Last administered on 11/30/18 21:37; Admin Dose 25 MG; Start 11/30/18 at 21:00 Metoprolol Tartrate (Lopressor) 5 mg Q4H PRN IV HR>110 Hold SBP<100; Start 11/30/18 at 12:30 Heparin Sodium (Porcine) (Heparin (5000 Units/1ml)) 5,000 unit Q8 SC Last administered on 12/01/18 05:34; Admin Dose 5,000 UNIT; Start 11/30/18 at 14:00 AVERY URBINA Dec 01, 2018 11:15
[2018-12-01] MEDS ORDERED: ALBUMIN HUMAN 25% 100 ML IV ONE (11:30)
--- NOTE | 2018-12-01 12:24 | PN ---
Date/Time of Note Date/Time of Note DATE: 12/01/18 TIME: 12:19 Assessment/Plan VTE Prophylaxis Risk score (from [facility] [place]0 risk: 10 SCD applied (from [facility] [place]): No SCD contraindicated: bilateral LE trauma Pharmacological prophylaxis: heparin Lines/Catheters IV Catheter Type (from [facility]): PICC Line Central line still needed: Yes Urinary Cath still in place: Yes Reason Cath still needed: urinary retention Assessment/Plan Hospital Course Patient respiratory distress diminished lung sounds chest, chest x-ray with an increased interstitial edema, and is getting urgent hemodialysis status post Lasix continue BiPAP as needed, pulmonology recommendations. Assessment/Plan -Acute respiratory failure. Dr. Garcia is following in pulmonology consultation. -Sepsis secondary to UTI. Continue antibiotics per ID. Dr. Jordan is following in infection disease consultation. -S/p septic and cardiogenic shock -Left lower lobe pneumonia -Acute on chronic systolic and diastolic congestive heart failure. Dr. Iraheta is following in cardiology consultation. -ARF on CKD. Patient started on hemodialysis during this admission. Continue hemodialysis per nephrology. Dr Hill is following in nephrology consultation. -Pulmonary edema -Hypothyroidism, continue Synthroid. -DNR status Further recommendations based on clinical course. Plan of care discussed with Dr. Olivier. Result Diagram: 12/01/183 12/01/183 Results 24hrs Laboratory Tests Test 12/01/18 04:43 12/01/18 08:13 White Blood Count 15.2 H Red Blood Count 3.00 L Hemoglobin 9.2 L Hematocrit 28.7 L Mean Corpuscular Volume 95.7 Mean Corpuscular Hemoglobin 30.7 Mean Corpuscular Hemoglobin Concent 32.1 Red Cell Distribution Width 15.9 H Platelet Count 133 L Mean Platelet Volume 10.4 Immature Granulocytes % 0.700 H Neutrophils % 93.4 H Lymphocytes % 3.6 L Monocytes % 2.2 Eosinophils % 0.0 Basophils % 0.1 Nucleated Red Blood Cells % 0.5 H Immature Granulocytes # 0.110 H Neutrophils # 14.1 H Lymphocytes # 0.6 L Monocytes # 0.3 Eosinophils # 0.0 Basophils # 0.0 Nucleated Red Blood Cells # 0.1 H Sodium Level 140 Potassium Level 3.7 Chloride Level 99 Carbon Dioxide Level 33 H Anion Gap 8 Blood Urea Nitrogen 57 H Creatinine 3.06 H Est Glomerular Filtrat Rate mL/min Glucose Level 133 Calcium Level 8.7 Blood Gas Specimen Source Blood arterial Arterial Blood Date Drawn 12/01/2018 8:35:25 AM Arterial Blood pH (Temp corrected) 7.515 H Arterial Blood pCO2 (Temp correct) 39.2 Arterial Blood pO2 (Temp corrected) 75.4 L Arterial Blood HCO3 30.9 H Arterial Blood Base Excess 7.5 H Arterial Blood Oxygen Saturation 95.4 Rei Test ACCEPTAB Arterial Blood Gas Puncture Site Left Radial Arterial Blood Carboxyhemoglobin 0.3 Arterial Blood Methemoglobin 0.3 Blood Gas A-a O2 Differential 164.7 H Oxyhemoglobin Percent 94.8 Blood Gas Temperature 37.0 Blood Gas Respiration Rate 24.0 Blood Gas Actual Respiration Rate 26 Blood Gas Modality MASK - BIPAP FiO2 40.0 Blood Gas Pressure Support 12 Blood Gas IPAP/EPAP Ratio 13/07 Blood Gas Notified Whom TM Blood Gas Notified Time 12/01/2018 8:43:10 AM Exam/Review of Systems Vital Signs Vitals Vital Signs Date Temp Pulse Resp B/P (MAP) Pulse Ox O2 O2 Flow FiO2 Time Delivery Rate 12/01/18 98.8 11:27 12/01/18 98 19 131/89 98 11:18 (103) 12/01/18 Nasal 5.0 10:20 Cannula 12/01/18 40 08:17 Intake and Output 11/30/18 11/30/18 12/01/18 1515:00 23:00 07:00 IntakeIntake Total 100 ml 480 ml 100 ml OutputOutput Total 2900 ml 200 ml 150 ml BalanceBalance -2800 ml 280 ml -50 ml Exam Constitutional: frail, generalized edema Neck: supple Respiratory: diminished breath sounds Cardiovascular: Irregular rhythm Gastrointestinal: soft, non-tender Extremities: normal pulses, edema 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: confused Medications Medications Current Medications Albuterol/ Ipratropium (Duoneb) 3 ml Q6HWA RESP THERAPY HHN Last administered on 12/01/18at 08:03; Admin Dose 3 ML; Start 11/26/18 at 08:00 Acetaminophen (Tylenol Tab) 500 mg Q6H PRN PO MILD PAIN(1-3)OR ELEVATED TEMP Last administered on 11/29/18at 12:32; Admin Dose 500 MG; Start 11/25/18 at 22:30 Albumin Human 50 ml @ 100 mls/hr WITH DIALYSIS PRN IV SBP lower than 90 mm Hg ; Start 11/26/18 at 14:00 Sodium Chloride (NS) -To prime the dialy... DIRECTED FOR HD PRN IV SBP lower than 90 mm Hg ; Start 11/26/18 at 14:00 IV Flush (NS 10 ml) 10 ml PRN PRN IV IV PROTOCOL; Start 11/26/18 at 14:30 Levothyroxine Sodium (Synthroid Iv) 75 mcg DAILY@06 IV Last administered on 12/01/18at 05:18; Admin Dose 75 MCG; Start 11/28/18 at 06:00 Hydralazine HCl (Apresoline) 20 mg Q6H PRN IV SBP > 160 Last administered on at 12:33; Admin Dose 20 MG; Start 11/28/18 at 07:00 Albuterol/ Ipratropium (Duoneb) 3 ml Q4H RESP THERAPY PRN HHN SHORTNESS OF BREATH; Start 11/29/18 at 01:00 Nifedipine (Procardia Xl) 60 mg BID PO Last administered on 11/30/18at 21:37; Admin Dose 60 MG; Start 11/29/18 at 14:00 Cefepime HCl 50 ml @ 100 mls/hr Q24H IVPB Last administered on 11/30/18at 15:23; Admin Dose 100 MLS/HR; Start 11/30/18 at 11:00 Metoprolol Tartrate (Lopressor) 25 mg BID PO Last administered on 11/30/18at 21:37; Admin Dose 25 MG; Start 11/30/18 at 21:00 Metoprolol Tartrate (Lopressor) 5 mg Q4H PRN IV HR>110 Hold SBP<100; Start 11/30/18 at 12:30 Heparin Sodium (Porcine) (Heparin (5000 Units/1ml)) 5,000 unit Q8 SC Last administered on 12/01/18at 05:34; Admin Dose 5,000 UNIT; Start 11/30/18 at 14:00 Heparin Sodium (Porcine) (Heparin (1000 Units/ml)) 2,800 unit AFTER DIALYSIS CATHETER ; Start 12/01/18 at 11:30 Albumin Human 100 ml @ 100 mls/hr WITH DIALYSIS ONCE IV ; Start 12/01/18 at 11:30; Stop 12/01/18 at 12:29 EDWAR VARGAS Dec 01, 2018 12:24
[2018-12-01] MEDS: HEPARIN 1000 UNITS/ML 10 ML INJ CATHETER SCH (13:08)
[2018-12-01] MEDS: METOPROLOL 25 MG TAB PO SCH ×2 (13:52→20:35)
[2018-12-01] MEDS: ACETAMINOPHEN 500 MG TAB PO PRN ×2 (13:53→20:36)
[2018-12-01] MEDS: CEFEPIME 1GM/50 ML (PMX) 50 ML IVPB SCH (13:53)
[2018-12-01] MEDS: NIFEdipine (XL) 60 MG TAB PO SCH ×2 (13:53→20:35)
--- NOTE | 2018-12-01 14:23 | CONS ---
Date/Time of Note Date/Time of Note DATE: 12/01/18 TIME: 14:20 Assessment/Plan Assessment/Plan Hospital Course Assessment/Impression: - leukocytosis, likely due to steroid 11/25/2018-12/01/2018 - sepsis due to UTI possibly bacteremia although the latter could be a contaminant - UTI due to klebsiella and proteus - bacteremia 1/2 sets from 11/25/2018 due to coag negative Staph - also a component of SIRS due to acute hypoxic resp failure, acute on chronic renal failure - acute hypoxic resp failure, probably due to CHF exacerbation, off bipap - CHF exacerbation, improved after HD - acute on chronic renal failure, started on HD on 11/26/2018 - underlying COPD - CAD - hypothyroidism - TSH elevated and FT4 depressed - gout - eschar of L 4th toe, probably ischemic eschar/ischemia - acute encephalopathy due to sepsis, improving a little recommendations: - continue ceftriaxone (11/26/2018) for UTI, will end tomorrow management d/w Pt's liquid sugar fortifier Result Diagram: 12/01/18 0443 12/01/18 0443 Results 24hrs Laboratory Tests Test 12/01/18 04:43 12/01/18 08:13 White Blood Count 15.2 H Red Blood Count 3.00 L Hemoglobin 9.2 L Hematocrit 28.7 L Mean Corpuscular Volume 95.7 Mean Corpuscular Hemoglobin 30.7 Mean Corpuscular Hemoglobin Concent 32.1 Red Cell Distribution Width 15.9 H Platelet Count 133 L Mean Platelet Volume 10.4 Immature Granulocytes % 0.700 H Neutrophils % 93.4 H Lymphocytes % 3.6 L Monocytes % 2.2 Eosinophils % 0.0 Basophils % 0.1 Nucleated Red Blood Cells % 0.5 H Immature Granulocytes # 0.110 H Neutrophils # 14.1 H Lymphocytes # 0.6 L Monocytes # 0.3 Eosinophils # 0.0 Basophils # 0.0 Nucleated Red Blood Cells # 0.1 H Sodium Level 140 Potassium Level 3.7 Chloride Level 99 Carbon Dioxide Level 33 H Anion Gap 8 Blood Urea Nitrogen 57 H Creatinine 3.06 H Est Glomerular Filtrat Rate mL/min Glucose Level 133 Calcium Level 8.7 Blood Gas Specimen Source Blood arterial Arterial Blood Date Drawn 12/01/2018 8:35:25 AM Arterial Blood pH (Temp corrected) 7.515 H Arterial Blood pCO2 (Temp correct) 39.2 Arterial Blood pO2 (Temp corrected) 75.4 L Arterial Blood HCO3 30.9 H Arterial Blood Base Excess 7.5 H Arterial Blood Oxygen Saturation 95.4 Rei Test ACCEPTAB Arterial Blood Gas Puncture Site Left Radial Arterial Blood Carboxyhemoglobin 0.3 Arterial Blood Methemoglobin 0.3 Blood Gas A-a O2 Differential 164.7 H Oxyhemoglobin Percent 94.8 Blood Gas Temperature 37.0 Blood Gas Respiration Rate 24.0 Blood Gas Actual Respiration Rate 26 Blood Gas Modality MASK - BIPAP FiO2 40.0 Blood Gas Pressure Support 12 Blood Gas IPAP/EPAP Ratio 13/07 Blood Gas Notified Whom TM Blood Gas Notified Time 12/01/2018 8:43:10 AM Consultation Date/Type/Reason Admit Date/Time Nov 26, 2018 at 11:28 Initial Consult Date 11/27/18 Type of Consult ID Requesting Provider: KATIE MENDEZ 24 HR Interval Summary Subjective hx not possible: other (confused ) Exam/Review of Systems Vital Signs Vitals Vital Signs Date Temp Pulse Resp B/P (MAP) Pulse Ox O2 O2 Flow FiO2 Time Delivery Rate 12/01/18 99.1 13:53 12/01/18 110 20 150/90 99 Nasal 3.0 13:34 (110) Cannula 12/01/18 40 08:17 Intake and Output 11/30/18 11/30/18 12/01/18 1515:00 23:00 07:00 IntakeIntake Total 100 ml 480 ml 100 ml OutputOutput Total 2900 ml 200 ml 150 ml BalanceBalance -2800 ml 280 ml -50 ml Exam Constitutional: frail, obese Psych: confusion Head: normocephalic, atraumatic Eyes: nl conjunctiva, nl lids ENMT: nl external ears & nose, nl nasal mucosa & septum, mucosa pink and moist, other (Pt did not open her mouth for exam) Neck: supple, other (not swollen) Respiratory: diminished breath sounds Cardiovascular: regular rate and rhythm, nl pulses Gastrointestinal: soft, non-tender; No distended, No tender Genitourinary - Female: other (FC) Musculoskeletal: No swelling Extremities: edema (non-pitting edema of b/l UEs) 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: confused, lethargic Skin: ecchymosis (b/l UE, R>L) Medications Medications Current Medications Albuterol/ Ipratropium (Duoneb) 3 ml Q6HWA RESP THERAPY HHN Last administered on 12/01/18 08:03; Admin Dose 3 ML; Start 11/26/18 at 08:00 Acetaminophen (Tylenol Tab) 500 mg Q6H PRN PO MILD PAIN(1-3)OR ELEVATED TEMP Last administered on 12/01/18 13:53; Admin Dose 500 MG; Start 11/25/18 at 22:30 Albumin Human 50 ml @ 100 mls/hr WITH DIALYSIS PRN IV SBP lower than 90 mm Hg ; Start 11/26/18 at 14:00 Sodium Chloride (NS) -To prime the dialy... DIRECTED FOR HD PRN IV SBP lower than 90 mm Hg ; Start 11/26/18 at 14:00 IV Flush (NS 10 ml) 10 ml PRN PRN IV IV PROTOCOL; Start 11/26/18 at 14:30 Levothyroxine Sodium (Synthroid Iv) 75 mcg DAILY@06 IV Last administered on 12/01/18 05:18; Admin Dose 75 MCG; Start 11/28/18 at 06:00 Hydralazine HCl (Apresoline) 20 mg Q6H PRN IV SBP > 160 Last administered on 11/29/18at 12:33; Admin Dose 20 MG; Start 11/28/18 at 07:00 Albuterol/ Ipratropium (Duoneb) 3 ml Q4H RESP THERAPY PRN HHN SHORTNESS OF BREATH; Start 11/29/18 at 01:00 Nifedipine (Procardia Xl) 60 mg BID PO Last administered on 12/01/18 13:53; Admin Dose 60 MG; Start 11/29/18 at 14:00 Cefepime HCl 50 ml @ 100 mls/hr Q24H IVPB Last administered on 12/01/18 13:53; Admin Dose 100 MLS/HR; Start 11/30/18 at 11:00 Metoprolol Tartrate (Lopressor) 25 mg BID PO Last administered on 12/01/18 13:52; Admin Dose 25 MG; Start 11/30/18 at 21:00 Metoprolol Tartrate (Lopressor) 5 mg Q4H PRN IV HR>110 Hold SBP<100; Start 11/30/18 at 12:30 Heparin Sodium (Porcine) (Heparin (5000 Units/1ml)) 5,000 unit Q8 SC Last administered on 12/01/18at 14:12; Admin Dose 5,000 UNIT; Start 11/30/18 at 14:00 Heparin Sodium (Porcine) (Heparin (1000 Units/ml)) 2,800 unit AFTER DIALYSIS CATHETER Last administered on 12/01/18at 13:08; Admin Dose 2,800 UNIT; Start 12/01/18 at 11:30 RICHARD MOBLEY M.D. Dec 01, 2018 14:23
[2018-12-01] MEDS ORDERED: HALOPERIDOL 5 MG INJ IV PRN (19:30)
[2018-12-02] VITALS (22 sets, daily range): BP systolic 91–145; BP diastolic 43–69; PULSE 53–113; RESP 18–24
[2018-12-02] MEDS: LEVOTHYROXINE 100 MCG VIAL IV SCH (05:19)
[2018-12-02] MEDS: HEPARIN 5,000 UNIT/1 ML VIAL SC SCH ×3 (05:42→20:37)
[2018-12-02] MEDS: ALBUTEROL/IPRATROPIUM (NEB) 3 ML AMP HHN SCH ×3 (08:00→21:04)
[2018-12-02] MEDS: METOPROLOL 25 MG TAB PO SCH ×2 (08:51→20:34)
[2018-12-02] MEDS: NIFEdipine (XL) 60 MG TAB PO SCH ×2 (08:51→20:34)
--- NOTE | 2018-12-02 11:07 | CONS ---
Date/Time of Note Date/Time of Note DATE: 12/02/18 TIME: 11:05 Assessment/Plan Assessment/Plan Assessment/Plan Assessment and recommendations; 1. Patient admitted with hypoxemia due to underlying cardiomyopathy with his tory of chronic renal failure requiring hemodialysis. 2. Persistent hypoxemia due to underlying persistent pulmonary edema. 3. History of hypertension, hypothyroidism. 4. Anemia and thrombocytopenia. 5. UTI. 6. Colace negative staph bacteremia. Likely contamination. Most recent cultures are negative. Continue current supportive care. Prognosis is poor. Consider hospice. Result Diagram: 12/02/18 0601 12/02/18 0601 Results 24hrs Laboratory Tests Test 12/02/18 06:01 White Blood Count 15.3 H Red Blood Count 2.40 L Hemoglobin 7.4 L Hematocrit 23.0 L Mean Corpuscular Volume 95.8 Mean Corpuscular Hemoglobin 30.8 Mean Corpuscular Hemoglobin Concent 32.2 Red Cell Distribution Width 15.8 H Platelet Count 120 L Mean Platelet Volume 11.1 H Immature Granulocytes % 1.000 H Neutrophils % 86.2 H Lymphocytes % 8.4 L Monocytes % 4.1 Eosinophils % 0.1 Basophils % 0.2 Nucleated Red Blood Cells % 0.3 H Immature Granulocytes # 0.150 H Neutrophils # 13.2 H Lymphocytes # 1.3 Monocytes # 0.6 Eosinophils # 0.0 Basophils # 0.0 Nucleated Red Blood Cells # 0.1 H Sodium Level 140 Potassium Level 3.4 L Chloride Level 104 Carbon Dioxide Level 29 Anion Gap 7 Blood Urea Nitrogen 74 H Creatinine 2.98 H Est Glomerular Filtrat Rate mL/min Glucose Level 99 Calcium Level 8.7 Consultation Date/Type/Reason Admit Date/Time Nov 26, 2018 at 11:28 Initial Consult Date 11/27/18 Type of Consult Pulmonary Requesting Provider: KATIE MENDEZ 24 HR Interval Summary Free Text/Dictation Patient condition is fairly stable. Patient again getting hemodialysis at bedside. General exam; elderly female, awake and responsive. Currently in no distress. Exam/Review of Systems Vital Signs Vitals Vital Signs Date Temp Pulse Resp B/P (MAP) Pulse Ox O2 O2 Flow FiO2 Time Delivery Rate 12/02/18 63 08:49 12/02/18 96 5.0 08:45 12/02/18 Nasal 08:20 Cannula 12/02/18 98.7 18 131/59 07:25 (83) 12/02/18 40 03:59 Intake and Output 12/01/18 12/01/18 12/02/18 1515:00 23:00 07:00 IntakeIntake Total 50 ml 450 ml 150 ml OutputOutput Total 3200 ml 400 ml 70 ml BalanceBalance -3150 ml 50 ml 80 ml Exam H EENT exam; supple neck, positive JVD. No lymphadenopathy. Midline trachea. No thyromegaly. Patient does have carious teeth. Chest exam; diminished breath sounds bilaterally. S1-S2 audible, no murmurs. Abdomen exam; soft, no organomegaly. Nontender. Bowel sounds audible. Extremity exam; no edema. BUYER AGENT exam; she is awake and responsive. Medications Medications Current Medications Albuterol/ Ipratropium (Duoneb) 3 ml Q6HWA RESP THERAPY HHN Last administered on 12/01/18at 21:36; Admin Dose 3 ML; Start 11/26/18 at 08:00 Acetaminophen (Tylenol Tab) 500 mg Q6H PRN PO MILD PAIN(1-3)OR ELEVATED TEMP Last administered on 12/01/18at 20:36; Admin Dose 500 MG; Start 11/25/18 at 22:30 Albumin Human 50 ml @ 100 mls/hr WITH DIALYSIS PRN IV SBP lower than 90 mm Hg ; Start 11/26/18 at 14:00 Sodium Chloride (NS) -To prime the dialy... DIRECTED FOR HD PRN IV SBP lower than 90 mm Hg ; Start 11/26/18 at 14:00 IV Flush (NS 10 ml) 10 ml PRN PRN IV IV PROTOCOL; Start 11/26/18 at 14:30 Hydralazine HCl (Apresoline) 20 mg Q6H PRN IV SBP > 160 Last administered on 11/29/18at 12:33; Admin Dose 20 MG; Start 11/28/18 at 07:00 Albuterol/ Ipratropium (Duoneb) 3 ml Q4H RESP THERAPY PRN HHN SHORTNESS OF BREATH Last administered on 12/02/18at 03:49; Admin Dose 3 ML; Start 11/29/18 at 01:00 Nifedipine (Procardia Xl) 60 mg BID PO Last administered on 12/01/18at 20:35; Admin Dose 60 MG; Start 11/29/18 at 14:00 Cefepime HCl 50 ml @ 100 mls/hr Q24H IVPB Last administered on 12/01/18 13:53; Admin Dose 100 MLS/HR; Start 11/30/18 at 11:00 Metoprolol Tartrate (Lopressor) 25 mg BID PO Last administered on 12/01/18at 20:35; Admin Dose 25 MG; Start 11/30/18 at 21:00 Metoprolol Tartrate (Lopressor) 5 mg Q4H PRN IV HR>110 Hold SBP<100; Start 11/30/18 at 12:30 Heparin Sodium (Porcine) (Heparin (5000 Units/1ml)) 5,000 unit Q8 SC Last administered on 12/02/18at 05:42; Admin Dose 5,000 UNIT; Start 11/30/18 at 14:00 Heparin Sodium (Porcine) (Heparin (1000 Units/ml)) 2,800 unit AFTER DIALYSIS CATHETER Last administered on 12/01/18at 13:08; Admin Dose 2,800 UNIT; Start 12/01/18 at 11:30 Levothyroxine Sodium (Synthroid Iv) 100 mcg DAILY@06 IV Last administered on 12/02/18 05:19; Admin Dose 100 MCG; Start 12/02/18 at 06:00 Haloperidol (Haldol) 2 mg Q6H PRN IV hallucinations Last administered on 12/02/18 03:21; Admin Dose 2 MG; Start 12/01/18 at 19:30 AVERY URBINA Dec 02, 2018 11:07
--- NOTE | 2018-12-02 11:25 | CONS ---
Date/Time of Note Date/Time of Note DATE: 12/02/18 TIME: 11:25 Assessment/Plan Assessment/Plan Assessment/Plan 1. Oliguric Acute kindey injury on CKD III due to ATN from septic shock, 2. Acute uremic encephalopathy 3. Acute hyperkalemia- resolved 4. Severe metabolic acidosis 5. Septic shock on pressors 2/2 UTI and bacteremia 6. acute hypoxemic respiraotry failure on BIPAP 7. acute on chronic,systolic and diastolic heart failure 8. H/o HTN 9. H/o COPD Plan: started on HD on 11/26/17- s/p HD 3 days in a row, -pt will be on MWF schedule - Mic Catheter did not work well,s/p tPA in catheter has been consulted for permacath IV abx as per PMD, renally dose all abx and monitor electrolytes will follow up Result Diagram: 12/02/18 0601 12/02/18 0601 Results 24hrs Laboratory Tests Test 12/02/18 06:01 White Blood Count 15.3 H Red Blood Count 2.40 L Hemoglobin 7.4 L Hematocrit 23.0 L Mean Corpuscular Volume 95.8 Mean Corpuscular Hemoglobin 30.8 Mean Corpuscular Hemoglobin Concent 32.2 Red Cell Distribution Width 15.8 H Platelet Count 120 L Mean Platelet Volume 11.1 H Immature Granulocytes % 1.000 H Neutrophils % 86.2 H Lymphocytes % 8.4 L Monocytes % 4.1 Eosinophils % 0.1 Basophils % 0.2 Nucleated Red Blood Cells % 0.3 H Immature Granulocytes # 0.150 H Neutrophils # 13.2 H Lymphocytes # 1.3 Monocytes # 0.6 Eosinophils # 0.0 Basophils # 0.0 Nucleated Red Blood Cells # 0.1 H Sodium Level 140 Potassium Level 3.4 L Chloride Level 104 Carbon Dioxide Level 29 Anion Gap 7 Blood Urea Nitrogen 74 H Creatinine 2.98 H Est Glomerular Filtrat Rate mL/min Glucose Level 99 Calcium Level 8.7 Consultation Date/Type/Reason Admit Date/Time Nov 26, 2018 at 11:28 Initial Consult Date 11/26/18 Type of Consult NEPHROLOGY Requesting Provider: KATIE MENDEZ Exam/Review of Systems Vital Signs Vitals Vital Signs Date Temp Pulse Resp B/P (MAP) Pulse Ox O2 O2 Flow FiO2 Time Delivery Rate 12/02/18 99.2 61 18 145/62 98 Nasal 11:19 (89) Cannula 12/02/18 4.0 09:40 12/02/18 40 03:59 Intake and Output 12/01/18 12/01/18 12/02/18 1515:00 23:00 07:00 IntakeIntake Total 50 ml 450 ml 150 ml OutputOutput Total 3200 ml 400 ml 70 ml BalanceBalance -3150 ml 50 ml 80 ml Exam Constitutional: moderate distress on BIPAP Respiratory: crackles/rales, diminished breath sounds Cardiovascular: regular rate and rhythm, nl pulses Gastrointestinal: soft, non-tender; ND, BS+ Musculoskeletal: other (eschar on L toe) Extremities: edema, pitting pedal edema, + right femoral Mic Catheter 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: lethargic, non focal Medications Medications Current Medications Albuterol/ Ipratropium (Duoneb) 3 ml Q6HWA RESP THERAPY HHN Last administered on 12/01/18at 21:36; Admin Dose 3 ML; Start 11/26/18 at 08:00 Acetaminophen (Tylenol Tab) 500 mg Q6H PRN PO MILD PAIN(1-3)OR ELEVATED TEMP Last administered on 12/01/18at 20:36; Admin Dose 500 MG; Start 11/25/18 at 22:30 Albumin Human 50 ml @ 100 mls/hr WITH DIALYSIS PRN IV SBP lower than 90 mm Hg ; Start 11/26/18 at 14:00 Sodium Chloride (NS) -To prime the dialy... DIRECTED FOR HD PRN IV SBP lower than 90 mm Hg ; Start 11/26/18 at 14:00 IV Flush (NS 10 ml) 10 ml PRN PRN IV IV PROTOCOL; Start 11/26/18 at 14:30 Hydralazine HCl (Apresoline) 20 mg Q6H PRN IV SBP > 160 Last administered on 11/29/18at 12:33; Admin Dose 20 MG; Start 11/28/18 at 07:00 Albuterol/ Ipratropium (Duoneb) 3 ml Q4H RESP THERAPY PRN HHN SHORTNESS OF BREATH Last administered on 12/02/18at 03:49; Admin Dose 3 ML; Start 11/29/18 at 01:00 Nifedipine (Procardia Xl) 60 mg BID PO Last administered on 12/01/18 20:35; Admin Dose 60 MG; Start 11/29/18 at 14:00 Cefepime HCl 50 ml @ 100 mls/hr Q24H IVPB Last administered on 12/01/18 13:53; Admin Dose 100 MLS/HR; Start 11/30/18 at 11:00 Metoprolol Tartrate (Lopressor) 25 mg BID PO Last administered on 12/01/18 20:35; Admin Dose 25 MG; Start 11/30/18 at 21:00 Metoprolol Tartrate (Lopressor) 5 mg Q4H PRN IV HR>110 Hold SBP<100; Start 11/30/18 at 12:30 Heparin Sodium (Porcine) (Heparin (5000 Units/1ml)) 5,000 unit Q8 SC Last administered on 12/02/18 05:42; Admin Dose 5,000 UNIT; Start 11/30/18 at 14:00 Heparin Sodium (Porcine) (Heparin (1000 Units/ml)) 2,800 unit AFTER DIALYSIS CATHETER Last administered on 12/01/18 13:08; Admin Dose 2,800 UNIT; Start 12/01/18 at 11:30 Levothyroxine Sodium (Synthroid Iv) 100 mcg DAILY@06 IV Last administered on 12/02/18 05:19; Admin Dose 100 MCG; Start 12/02/18 at 06:00 Haloperidol (Haldol) 2 mg Q6H PRN IV hallucinations Last administered on 12/02/18 03:21; Admin Dose 2 MG; Start 12/01/18 at 19:30 GI HARTMAN MD Dec 02, 2018 11:25
[2018-12-02] MEDS ORDERED: ALTEPLASE (CATHFLO) 2 MG INJ CATHETER ONE (12:00)
--- NOTE | 2018-12-02 12:01 | RADRPT ---
Vent Rate: 97 bpm RR Interval: 0 msec [place] Interval: 0 msec QRS Duration: 82 msec QT Interval: 372 msec QTC Interval: 472 msec P-R-T [place]: 0 - 36 - 0 degrees Atrial fibrillation Possible Anterior infarct , age undetermined Abnormal ECG Electronically Signed By: Abdoul Braxton [id number]
[2018-12-02] MEDS: CEFEPIME 1GM/50 ML (PMX) 50 ML IVPB SCH (12:29)
--- NOTE | 2018-12-02 14:28 | PN ---
Date/Time of Note Date/Time of Note DATE: 12/02/18 TIME: 14:23 Assessment/Plan VTE [place]axis [place] [facility] [place]: 13 [place]CD [place] [facility] [place] SCD contraindicated: bilateral LE trauma Pharmacological prophylaxis: heparin Lines/Catheters [facility] PICC Line Central line still needed: Yes Urinary Cath still in place: Yes Reason Cath still needed: urinary retention Assessment/Plan Hospital Course Patient with slight improvement in neuro status, able to tolerate meals, continues on supplemental oxygen, and BiPAP at night, status post hemodialysis today. We will recheck CBC tomorrow, if patient continues to have low hemoglobin we will transfuse. Assessment/Plan -Acute respiratory failure. Dr. Garcia is following in pulmonology consultation. -Sepsis secondary to UTI. Continue antibiotics per ID. Dr. Jordan is following in infection disease consultation. -S/p septic and cardiogenic shock -Left lower lobe pneumonia -Acute on chronic systolic and diastolic congestive heart failure. Dr. Iraheta is following in cardiology consultation. -ARF on CKD. Patient started on hemodialysis during this admission. Continue hemodialysis per nephrology. Dr Hill is following in nephrology consultation. -Pulmonary edema -Hypothyroidism, continue Synthroid. -DNR status Further recommendations based on clinical course. Plan of care discussed with Dr. Olivier. Result Diagram: 12/02/18 0601 12/02/18 0601 Results 24hrs Laboratory Tests Test 12/02/18 06:01 White Blood Count 15.3 H Red Blood Count 2.40 L Hemoglobin 7.4 L Hematocrit 23.0 L Mean Corpuscular Volume 95.8 Mean Corpuscular Hemoglobin 30.8 Mean Corpuscular Hemoglobin Concent 32.2 Red Cell Distribution Width 15.8 H Platelet Count 120 L Mean Platelet Volume 11.1 H Immature Granulocytes % 1.000 H Neutrophils % 86.2 H Lymphocytes % 8.4 L Monocytes % 4.1 Eosinophils % 0.1 Basophils % 0.2 Nucleated Red Blood Cells % 0.3 H Immature Granulocytes # 0.150 H Neutrophils # 13.2 H Lymphocytes # 1.3 Monocytes # 0.6 Eosinophils # 0.0 Basophils # 0.0 Nucleated Red Blood Cells # 0.1 H Sodium Level 140 Potassium Level 3.4 L Chloride Level 104 Carbon Dioxide Level 29 Anion Gap 7 Blood Urea Nitrogen 74 H Creatinine 2.98 H Est Glomerular Filtrat Rate mL/min Glucose Level 99 Calcium Level 8.7 Exam/Review of Systems Vital Signs Vitals Vital Signs Date Temp Pulse Resp B/P (MAP) Pulse Ox O2 O2 Flow FiO2 Time Delivery Rate 12/02/18 62 12:29 12/02/18 99.2 18 145/62 98 Nasal 11:19 (89) Cannula 12/02/18 4.0 09:40 12/02/18 40 03:59 Intake and Output 12/01/18 12/01/18 12/02/18 1515:00 23:00 07:00 IntakeIntake Total 50 ml 450 ml 150 ml OutputOutput Total 3200 ml 400 ml 70 ml BalanceBalance -3150 ml 50 ml 80 ml Exam Constitutional: frail, generalized edema Neck: supple Respiratory: diminished breath sounds Cardiovascular: Irregular rhythm Gastrointestinal: soft, non-tender Extremities: normal pulses, edema 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: confused Medications Medications Current Medications Albuterol/ Ipratropium (Duoneb) 3 ml Q6HWA RESP THERAPY HHN Last administered on 12/02/18at 14:22; Admin Dose 3 ML; Start 11/26/18 at 08:00 Acetaminophen (Tylenol Tab) 500 mg Q6H PRN PO MILD PAIN(1-3)OR ELEVATED TEMP Last administered on 12/01/18at 20:36; Admin Dose 500 MG; Start 11/25/18 at 22:30 Albumin Human 50 ml @ 100 mls/hr WITH DIALYSIS PRN IV SBP lower than 90 mm Hg ; Start 11/26/18 at 14:00 Sodium Chloride (NS) -To prime the dialy... DIRECTED FOR HD PRN IV SBP lower than 90 mm Hg ; Start 11/26/18 at 14:00 IV Flush (NS 10 ml) 10 ml PRN PRN IV IV PROTOCOL; Start 11/26/18 at 14:30 Hydralazine HCl (Apresoline) 20 mg Q6H PRN IV SBP > 160 Last administered on 11/29/18at 12:33; Admin Dose 20 MG; Start 11/28/18 at 07:00 Albuterol/ Ipratropium (Duoneb) 3 ml Q4H RESP THERAPY PRN HHN SHORTNESS OF BREATH Last administered on 12/02/18at 03:49; Admin Dose 3 ML; Start 11/29/18 at 01:00 Nifedipine (Procardia Xl) 60 mg BID PO Last administered on 12/01/18 20:35; Admin Dose 60 MG; Start 11/29/18 at 14:00 Cefepime HCl 50 ml @ 100 mls/hr Q24H IVPB Last administered on 12/02/18 12:29; Admin Dose 100 MLS/HR; Start 11/30/18 at 11:00 Metoprolol Tartrate (Lopressor) 25 mg BID PO Last administered on 12/01/18 20:35; Admin Dose 25 MG; Start 11/30/18 at 21:00 Metoprolol Tartrate (Lopressor) 5 mg Q4H PRN IV HR>110 Hold SBP<100; Start 11/30/18 at 12:30 Heparin Sodium (Porcine) (Heparin (5000 Units/1ml)) 5,000 unit Q8 SC Last admi nistered on 12/02/18 14:19; Admin Dose 5,000 UNIT; Start 11/30/18 at 14:00 Heparin Sodium (Porcine) (Heparin (1000 Units/ml)) 2,800 unit AFTER DIALYSIS CATHETER Last administered on 12/01/18 13:08; Admin Dose 2,800 UNIT; Start 12/01/18 at 11:30 Levothyroxine Sodium (Synthroid Iv) 100 mcg DAILY@06 IV Last administered on 12/02/18 05:19; Admin Dose 100 MCG; Start 12/02/18 at 06:00 Haloperidol (Haldol) 2 mg Q6H PRN IV hallucinations Last administered on 12/02/18 03:21; Admin Dose 2 MG; Start 12/01/18 at 19:30 EDWAR VARGAS Dec 02, 2018 14:28
--- NOTE | 2018-12-02 14:36 | CONS ---
Date/Time of Note Date/Time of Note DATE: 12/02/18 TIME: 14:32 Assessment/Plan Assessment/Plan Hospital Course IMPRESSION: 1. Shock, on dopamine pressor support at this time with previously preserved EF by most recent echo September 2018 of 60% to 65%.-improved off dopamine 2. Abnormal echocardiogram, assess for acute coronary syndrome. 3. Congestive heart failure, diastolic, acute on chronic, in the setting of renal failure. 4. Renal failure. 5. Anemia, status post transfusions. 6. Hyponatremia. 7. Urinary tract infection. 8. Tachycardia-c/w AF/AFL with RVR 9. Bradycardia- to 40's when converts to SR REcc: -Now on tele -follow BP closely on procardia XL and low dose BB as tolerated only -Continue abx's and f/u cx data -Follow volume status clsoely -Follow for recurrent significant bradycardia -Continue steroids/bronchodilators Result Diagram: 12/02/18 0601 12/02/18 0601 Results 24hrs Laboratory Tests Test 12/02/18 06:01 White Blood Count 15.3 H Red Blood Count 2.40 L Hemoglobin 7.4 L Hematocrit 23.0 L Mean Corpuscular Volume 95.8 Mean Corpuscular Hemoglobin 30.8 Mean Corpuscular Hemoglobin Concent 32.2 Red Cell Distribution Width 15.8 H Platelet Count 120 L Mean Platelet Volume 11.1 H Immature Granulocytes % 1.000 H Neutrophils % 86.2 H Lymphocytes % 8.4 L Monocytes % 4.1 Eosinophils % 0.1 Basophils % 0.2 Nucleated Red Blood Cells % 0.3 H Immature Granulocytes # 0.150 H Neutrophils # 13.2 H Lymphocytes # 1.3 Monocytes # 0.6 Eosinophils # 0.0 Basophils # 0.0 Nucleated Red Blood Cells # 0.1 H Sodium Level 140 Potassium Level 3.4 L Chloride Level 104 Carbon Dioxide Level 29 Anion Gap 7 Blood Urea Nitrogen 74 H Creatinine 2.98 H Est Glomerular Filtrat Rate mL/min Glucose Level 99 Calcium Level 8.7 Consultation Date/Type/Reason Admit Date/Time Nov 26, 2018 at 11:28 Initial Consult Date 11/26/18 Type of Consult cardiology Reason for Consultation AF Requesting Provider: KATIE MENDEZ Exam/Review of Systems Vital Signs Vitals Vital Signs Date Temp Pulse Resp B/P (MAP) Pulse Ox O2 O2 Flow FiO2 Time Delivery Rate 12/02/18 94 4.0 14:22 12/02/18 83 18 Nasal 14:22 Cannula 12/02/18 99.2 145/62 11:19 (89) 12/02/18 40 03:59 Intake and Output 12/01/18 12/01/18 12/02/18 1515:00 23:00 07:00 IntakeIntake Total 50 ml 450 ml 150 ml OutputOutput Total 3200 ml 400 ml 70 ml BalanceBalance -3150 ml 50 ml 80 ml Exam Review of Systems: CONSTITUTIONAL: No fevers, chills. PULMONARY: No sob CARDIOVASCULAR: No chest pain/palpitations GASTROINTESTINAL: No nausea/vomiting. GENITOURINARY: No hematuria/dysuria. MUSCULOSKELETAL: No myagias/arthalgias. PSYCHIATRIC: The patient denies depression. NEUROLOGIC: lethargic Constitutional: other (sleeping) Psych: no complaints Head: normocephalic ENMT: mucosa pink and moist Neck: supple, jvd (9 cm water) Respiratory: diminished breath sounds Cardiovascular: regular rate and rhythm Gastrointestinal: soft, non-tender Musculoskeletal: muscle tone Extremities: edema (none) 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: other (No focal deficits) Medications Medications Current Medications Albuterol/ Ipratropium (Duoneb) 3 ml Q6HWA RESP THERAPY HHN Last administered on 12/02/18at 14:22; Admin Dose 3 ML; Start 11/26/18 at 08:00 Acetaminophen (Tylenol Tab) 500 mg Q6H PRN PO MILD PAIN(1-3)OR ELEVATED TEMP Last administered on 12/01/18at 20:36; Admin Dose 500 MG; Start 11/25/18 at 22:30 Albumin Human 50 ml @ 100 mls/hr WITH DIALYSIS PRN IV SBP lower than 90 mm Hg ; Start 11/26/18 at 14:00 Sodium Chloride (NS) -To prime the dialy... DIRECTED FOR HD PRN IV SBP lower than 90 mm Hg ; Start 11/26/18 at 14:00 IV Flush (NS 10 ml) 10 ml PRN PRN IV IV PROTOCOL; Start 11/26/18 at 14:30 Hydralazine HCl (Apresoline) 20 mg Q6H PRN IV SBP > 160 Last administered on at 12:33; Admin Dose 20 MG; Start 11/28/18 at 07:00 Albuterol/ Ipratropium (Duoneb) 3 ml Q4H RESP THERAPY PRN HHN SHORTNESS OF BREATH Last administered on 12/02/18 03:49; Admin Dose 3 ML; Start 11/29/18 at 01:00 Nifedipine (Procardia Xl) 60 mg BID PO Last administered on 12/01/18 20:35; Admin Dose 60 MG; Start 11/29/18 at 14:00 Cefepime HCl 50 ml @ 100 mls/hr Q24H IVPB Last administered on 12/02/18 12:29; Admin Dose 100 MLS/HR; Start 11/30/18 at 11:00 Metoprolol Tartrate (Lopressor) 25 mg BID PO Last administered on 12/01/18 20:35; Admin Dose 25 MG; Start 11/30/18 at 21:00 Metoprolol Tartrate (Lopressor) 5 mg Q4H PRN IV HR>110 Hold SBP<100; Start 11/30/18 at 12:30 Heparin Sodium (Porcine) (Heparin (5000 Units/1ml)) 5,000 unit Q8 SC Last administered on 12/02/18 14:19; Admin Dose 5,000 UNIT; Start 11/30/18 at 14:00 Heparin Sodium (Porcine) (Heparin (1000 Units/ml)) 2,800 unit AFTER DIALYSIS CATHETER Last administered on 12/01/18 13:08; Admin Dose 2,800 UNIT; Start 12/01/18 at 11:30 Levothyroxine Sodium (Synthroid Iv) 100 mcg DAILY@06 IV Last administered on 12/02/18 05:19; Admin Dose 100 MCG; Start 12/02/18 at 06:00 Haloperidol (Haldol) 2 mg Q6H PRN IV hallucinations Last administered on 12/02/18 03:21; Admin Dose 2 MG; Start 12/01/18 at 19:30 ALVINA GARCIA Dec 02, 2018 14:36
--- NOTE | 2018-12-02 19:11 | CONS ---
Date/Time of Note Date/Time of Note DATE: 12/02/18 TIME: 19:08 Assessment/Plan Assessment/Plan Hospital Course Assessment/Impression: - leukocytosis, likely due to steroid 11/25/2018-12/01/2018 - sepsis due to UTI possibly bacteremia although the latter could be a contaminant - UTI due to klebsiella and proteus, resolving - bacteremia 1/2 sets from 11/25/2018 due to coag negative Staph - also a component of SIRS due to acute hypoxic resp failure, acute on chronic renal failure - acute hypoxic resp failure, probably due to CHF exacerbation +/- aspiration pneumonia/pneumonitis, off bipap - CHF exacerbation, improved after HD - acute on chronic renal failure, started on HD on 11/26/2018 - underlying COPD - CAD - hypothyroidism - TSH elevated and FT4 depressed - gout - eschar of L 4th toe, probably ischemic eschar/ischemia - acute encephalopathy due to sepsis, improving a little recommendations: - complete cefepime (11/30/2018-12/02/2018) today; Pt previously received ceftriaxone () management d/w Pt's daughter Result Diagram: 12/02/18 0601 12/02/18 0601 Results 24hrs Laboratory Tests Test 12/02/18 06:01 White Blood Count 15.3 H Red Blood Count 2.40 L Hemoglobin 7.4 L Hematocrit 23.0 L Mean Corpuscular Volume 95.8 Mean Corpuscular Hemoglobin 30.8 Mean Corpuscular Hemoglobin Concent 32.2 Red Cell Distribution Width 15.8 H Platelet Count 120 L Mean Platelet Volume 11.1 H Immature Granulocytes % 1.000 H Neutrophils % 86.2 H Lymphocytes % 8.4 L Monocytes % 4.1 Eosinophils % 0.1 Basophils % 0.2 Nucleated Red Blood Cells % 0.3 H Immature Granulocytes # 0.150 H Neutrophils # 13.2 H Lymphocytes # 1.3 Monocytes # 0.6 Eosinophils # 0.0 Basophils # 0.0 Nucleated Red Blood Cells # 0.1 H Sodium Level 140 Potassium Level 3.4 L Chloride Level 104 Carbon Dioxide Level 29 Anion Gap 7 Blood Urea Nitrogen 74 H Creatinine 2.98 H Est Glomerular Filtrat Rate mL/min Glucose Level 99 Calcium Level 8.7 Consultation Date/Type/Reason Admit Date/Time Nov 26, 2018 at 11:28 Initial Consult Date 11/27/18 Type of Consult ID Requesting Provider: KATIE MENDEZ 24 HR Interval Summary Subjective hx not possible: pt non-verbal (nearly. denied pain) Constitutional: poor po Exam/Review of Systems Vital Signs Vitals Vital Signs Date Temp Pulse Resp B/P (MAP) Pulse Ox O2 O2 Flow FiO2 Time Delivery Rate 12/02/18 91 16:19 12/02/18 97.6 18 144/69 97 Nasal 15:00 (94) Cannula 12/02/18 4.0 14:22 12/02/18 40 03:59 Intake and Output 12/01/18 12/01/18 12/02/18 1515:00 23:00 07:00 IntakeIntake Total 50 ml 450 ml 150 ml OutputOutput Total 3200 ml 400 ml 70 ml BalanceBalance -3150 ml 50 ml 80 ml Exam Constitutional: non-verbal, frail Psych: confusion Head: normocephalic, atraumatic Eyes: nl conjunctiva, nl lids ENMT: nl external ears & nose, nl nasal mucosa & septum, other (poor dentition) Neck: other (not swollen) Respiratory: clear to auscultation, normal air movement Cardiovascular: regular rate and rhythm, nl pulses, edema (b/l UEs) Gastrointestinal: soft, non-tender; No distended, No tender Genitourinary - Female: other (FC) Extremities: No edema 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: lethargic Skin: ecchymosis (ecchymoses of RLE) Medications Medications Current Medications Albuterol/ Ipratropium (Duoneb) 3 ml Q6HWA RESP THERAPY HHN Last administered on 12/02/18at 14:22; Admin Dose 3 ML; Start 11/26/18 at 08:00 Acetaminophen (Tylenol Tab) 500 mg Q6H PRN PO MILD PAIN(1-3)OR ELEVATED TEMP Last administered on 12/01/18at 20:36; Admin Dose 500 MG; Start 11/25/18 at 22:30 Albumin Human 50 ml @ 100 mls/hr WITH DIALYSIS PRN IV SBP lower than 90 mm Hg ; Start 11/26/18 at 14:00 Sodium Chloride (NS) -To prime the dialy... DIRECTED FOR HD PRN IV SBP lower than 90 mm Hg ; Start 11/26/18 at 14:00 IV Flush (NS 10 ml) 10 ml PRN PRN IV IV PROTOCOL; Start 11/26/18 at 14:30 Hydralazine HCl (Apresoline) 20 mg Q6H PRN IV SBP > 160 Last administered on 11/29/18 12:33; Admin Dose 20 MG; Start 11/28/18 at 07:00 Albuterol/ Ipratropium (Duoneb) 3 ml Q4H RESP THERAPY PRN HHN SHORTNESS OF BREATH Last administered on 12/02/18 03:49; Admin Dose 3 ML; Start 11/29/18 at 01:00 Nifedipine (Procardia Xl) 60 mg BID PO Last administered on 12/01/18 20:35; Adm in Dose 60 MG; Start 11/29/18 at 14:00 Cefepime HCl 50 ml @ 100 mls/hr Q24H IVPB Last administered on 12/02/18 12:29; Admin Dose 100 MLS/HR; Start 11/30/18 at 11:00 Metoprolol Tartrate (Lopressor) 25 mg BID PO Last administered on 12/01/18 20:35; Admin Dose 25 MG; Start 11/30/18 at 21:00 Metoprolol Tartrate (Lopressor) 5 mg Q4H PRN IV HR>110 Hold SBP<100; Start 11/30/18 at 12:30 Heparin Sodium (Porcine) (Heparin (5000 Units/1ml)) 5,000 unit Q8 SC Last administered on 12/02/18 14:19; Admin Dose 5,000 UNIT; Start 11/30/18 at 14:00 Heparin Sodium (Porcine) (Heparin (1000 Units/ml)) 2,800 unit AFTER DIALYSIS CATHETER Last administered on 12/01/18 13:08; Admin Dose 2,800 UNIT; Start 12/01/18 at 11:30 Levothyroxine Sodium (Synthroid Iv) 100 mcg DAILY@06 IV Last administered on 12/02/18 05:19; Admin Dose 100 MCG; Start 12/02/18 at 06:00 Haloperidol (Haldol) 2 mg Q6H PRN IV hallucinations Last administered on 12/02/18 03:21; Admin Dose 2 MG; Start 12/01/18 at 19:30 RICHARD MOBLEY M.D. Dec 02, 2018 19:11
[2018-12-03] VITALS (11 sets, daily range): BP systolic 113–141; BP diastolic 56–69; PULSE 50–92; RESP 18–20
[2018-12-03] MEDS: LEVOTHYROXINE 100 MCG VIAL IV SCH (05:46)
[2018-12-03] MEDS: HEPARIN 5,000 UNIT/1 ML VIAL SC SCH (05:53)
[2018-12-03] MEDS ORDERED: EPOETIN 10000 UNITS/1 ML INJ (ESRD) SC ONE (06:30)
--- NOTE | 2018-12-03 08:03 | CONS ---
Date/Time of Note Date/Time of Note DATE: 12/03/18 TIME: 08:03 Assessment/Plan Assessment/Plan Hospital Course Assessment/Impression: - leukocytosis, likely due to steroid 11/25/2018-12/01/2018 - sepsis due to UTI possibly bacteremia although the latter could be a contaminant - UTI due to klebsiella and proteus, resolving - bacteremia 1/2 sets from 11/25/2018 due to coag negative Staph - also a component of SIRS due to acute hypoxic resp failure, acute on chronic renal failure - acute hypoxic resp failure, probably due to CHF exacerbation +/- aspiration pneumonia/pneumonitis, off bipap - CHF exacerbation, improved after HD - bradycardia - acute on chronic renal failure, started on HD on 11/26/2018 - anemia - underlying COPD - CAD - hypothyroidism - TSH elevated and FT4 depressed - gout - eschar of L 4th toe, probably ischemic eschar/ischemia - acute encephalopathy due to sepsis, improving a little recommendations: - monitor Pt off systemic antibiotics, continue respiratory treatment, supportive care - Pt completed cefepime (11/30/2018-12/02/2018); Pt previously received ceftriaxone () management d/w Pt's RN. d/w Pt's daughter yesterday Result Diagram: 12/03/18 0706 12/03/18 0511 Results 24hrs Laboratory Tests Test 12/03/18 05:11 12/03/18 07:06 White Blood Count 16.9 H 16.6 H Red Blood Count 1.87 #L 1.87 L Hemoglobin 5.8 #*L 5.7 *L Hematocrit 18.1 #L 18.0 L Mean Corpuscular Volume 96.8 96.3 Mean Corpuscular Hemoglobin 31.0 30.5 Mean Corpuscular Hemoglobin Concent 32.0 31.7 L Red Cell Distribution Width 16.2 H 16.1 H Platelet Count 117 L 111 L Mean Platelet Volume 11.4 H 11.1 H Immature Granulocytes % 1.400 H 1.300 H Neutrophils % Segmented Neutrophils % (Manual) 92 H Band Neutrophils % (Manual) 2 Lymphocytes % Lymphocytes % (Manual) 3 L Monocytes % Monocytes % (Manual) 1 Eosinophils % Basophils % Myelocytes % (Manual) 2 H Nucleated Red Blood Cells % 0.0 0.0 Immature Granulocytes # 0.240 H 0.220 H Neutrophils # Neutrophils # (Manual) 15.6 H Band Neutrophils # 0.3 Lymphocytes (Manual) 0.5 L Lymphocytes # Monocytes # Monocytes # (Manual) 0.1 L Eosinophils # Basophils # Myelocytes # 0.3 H Nucleated Red Blood Cells # Toxic Granulation 1+ Platelet Estimate DECREASED Anisocytosis 1+ Macrocytosis 1+ Ovalocytes 1+ Sodium Level 140 Potassium Level 3.6 Chloride Level 105 Carbon Dioxide Level 28 Anion Gap 7 Blood Urea Nitrogen 92 H Creatinine 3.36 H Est Glomerular Filtrat Rate mL/min Glucose Level 95 Calcium Level 8.2 L Pathologist Review (Hematology) YES Consultation Date/Type/Reason Admit Date/Time Nov 26, 2018 at 11:28 Initial Consult Date 11/27/18 Type of Consult ID Requesting Provider: KATIE MENDEZ 24 HR Interval Summary Free Text/Dictation per Pt's RN, the sputum was blood tinged Subjective hx not possible: other (nearly non-verbal and limited) Detailed Summary Respiratory: other (blood that got on the blanket as a result of coughing); No shortness of breath Gastrointestinal: No pain Genitourinary: other (FC) Exam/Review of Systems Vital Signs Vitals Vital Signs Date Temp Pulse Resp B/P (MAP) Pulse Ox O2 O2 Flow FiO2 Time Delivery Rate 12/03/18 98.1 77 18 120/57 95 Nasal 07:30 (78) Cannula 12/03/18 4.0 05:50 12/02/18 40 03:59 Intake and Output 12/02/18 12/02/18 12/03/18 1515:00 23:00 07:00 IntakeIntake Total 370 ml OutputOutput Total 2140 ml 350 ml 75 ml BalanceBalance -2140 ml 20 ml -75 ml Exam Constitutional: frail Psych: other (smiling) Head: normocephalic, atraumatic Eyes: nl conjunctiva, nl lids ENMT: nl external ears & nose, nl nasal mucosa & septum, mucosa pink and moist Neck: other (not swollen) Respiratory: diminished breath sounds Cardiovascular: regular rate and rhythm, nl pulses, edema (UEs and hands) Gastrointestinal: soft; No distended, No tender Genitourinary - Female: other (FC) Musculoskeletal: nl extremities to inspection Extremities: edema (UEs and hands) 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: lethargic Skin: ecchymosis (b/l dorsal hands, and wrists) Medications Medications Current Medications Albuterol/ Ipratropium (Duoneb) 3 ml Q6HWA RESP THERAPY HHN Last administered on 12/02/18 21:04; Admin Dose 3 ML; Start 11/26/18 at 08:00 Acetaminophen (Tylenol Tab) 500 mg Q6H PRN PO MILD PAIN(1-3)OR ELEVATED TEMP Last administered on 12/01/18 20:36; Admin Dose 500 MG; Start 11/25/18 at 22:30 Albumin Human 50 ml @ 100 mls/hr WITH DIALYSIS PRN IV SBP lower than 90 mm Hg ; Start 11/26/18 at 14:00 Sodium Chloride (NS) -To prime the dialy... DIRECTED FOR HD PRN IV SBP lower than 90 mm Hg ; Start 11/26/18 at 14:00 IV Flush (NS 10 ml) 10 ml PRN PRN IV IV PROTOCOL; Start 11/26/18 at 14:30 Hydralazine HCl (Apresoline) 20 mg Q6H PRN IV SBP > 160 Last administered on 11/29/18at 12:33; Admin Dose 20 MG; Start 11/28/18 at 07:00 Albuterol/ Ipratropium (Duoneb) 3 ml Q4H RESP THERAPY PRN HHN SHORTNESS OF BREATH Last administered on 12/02/18 03:49; Admin Dose 3 ML; Start 11/29/18 at 01:00 Nifedipine (Procardia Xl) 60 mg BID PO Last administered on 12/02/18 20:34; Admin Dose 60 MG; Start 11/29/18 at 14:00 Metoprolol Tartrate (Lopressor) 25 mg BID PO Last administered on 12/02/18 20:34; Admin Dose 25 MG; Start 11/30/18 at 21:00 Metoprolol Tartrate (Lopressor) 5 mg Q4H PRN IV HR>110 Hold SBP<100; Start 11/30/18 at 12:30 Heparin Sodium (Porcine) (Heparin (5000 Units/1ml)) 5,000 unit Q8 SC Last administered on 12/03/18 05:53; Admin Dose 5,000 UNIT; Start 11/30/18 at 14:00 Heparin Sodium (Porcine) (Heparin (1000 Units/ml)) 2,800 unit AFTER DIALYSIS CATHETER Last administered on 12/01/18at 13:08; Admin Dose 2,800 UNIT; Start 12/01/18 at 11:30 Levothyroxine Sodium (Synthroid Iv) 100 mcg DAILY@06 IV Last administered on 12/03/18at 05:46; Admin Dose 100 MCG; Start 12/02/18 at 06:00 Haloperidol (Haldol) 2 mg Q6H PRN IV hallucinations Last administered on 12/02/18at 03:21; Admin Dose 2 MG; Start 12/01/18 at 19:30 RICHARD MOBLEY M.D. Dec 03, 2018 08:03
[2018-12-03] MEDS: METOPROLOL 25 MG TAB PO SCH ×2 (08:15→20:42)
--- NOTE | 2018-12-03 08:33 | CONS ---
Date/Time of Note Date/Time of Note DATE: 12/03/18 TIME: 08:33 Assessment/Plan Assessment/Plan Assessment/Plan 1. Oliguric Acute kindey injury on CKD III due to ATN from septic shock, 2. Acute uremic encephalopathy 3. Acute hyperkalemia- resolved 4. Severe metabolic acidosis 5. Septic shock on pressors 2/2 UTI and bacteremia 6. acute hypoxemic respiraotry failure on BIPAP 7. acute on chronic,systolic and diastolic heart failure 8. H/o HTN 9. H/o COPD Plan: started on HD on 11/26/17- -pt will be on MWF schedule- HD ordered for tomorrow Hb dropped to 5.7- Transfuse 1 unit PRBC now, will paln for another 2 units PRBC with HD in AM has been consulted for permacath IV abx as per PMD, renally dose all abx and monitor electrolytes will follow up Result Diagram: 12/03/18 0706 12/03/18 0511 Results 24hrs Laboratory Tests Test 12/03/18 05:11 12/03/18 07:06 White Blood Count 16.9 H 16.6 H Red Blood Count 1.87 #L 1.87 L Hemoglobin 5.8 #*L 5.7 *L Hematocrit 18.1 #L 18.0 L Mean Corpuscular Volume 96.8 96.3 Mean Corpuscular Hemoglobin 31.0 30.5 Mean Corpuscular Hemoglobin Concent 32.0 31.7 L Red Cell Distribution Width 16.2 H 16.1 H Platelet Count 117 L 111 L Mean Platelet Volume 11.4 H 11.1 H Immature Granulocytes % 1.400 H 1.300 H Neutrophils % Segmented Neutrophils % (Manual) 92 H 86 H Band Neutrophils % (Manual) 2 4 Lymphocytes % Lymphocytes % (Manual) 3 L 7 L Monocytes % Monocytes % (Manual) 1 1 Eosinophils % Basophils % Myelocytes % (Manual) 2 H 1 H Nucleated Red Blood Cells % 0.0 1 H Immature Granulocytes # 0.240 H 0.220 H Neutrophils # Neutrophils # (Manual) 15.6 H 14.4 H Band Neutrophils # 0.3 0.6 Lymphocytes (Manual) 0.5 L 1.1 Lymphocytes # Monocytes # Monocytes # (Manual) 0.1 L 0.1 L Eosinophils # Basophils # Myelocytes # 0.3 H 0.1 H Nucleated Red Blood Cells # Toxic Granulation 1+ Platelet Estimate DECREASED DECREASED Anisocytosis 1+ 1+ Macrocytosis 1+ 1+ Ovalocytes 1+ Sodium Level 140 Potassium Level 3.6 Chloride Level 105 Carbon Dioxide Level 28 Anion Gap 7 Blood Urea Nitrogen 92 H Creatinine 3.36 H Est Glomerular Filtrat Rate mL/min Glucose Level 95 Calcium Level 8.2 L Eosinophils % (Manual) 1 Pathologist Review (Hematology) YES Polychromasia 1+ Hypochromasia 1+ Poikilocytosis 1+ Basophilic Stippling 1+ Consultation Date/Type/Reason Admit Date/Time Nov 26, 2018 at 11:28 Initial Consult Date 11/26/18 Type of Consult NEPHROLOGY Requesting Provider: KATIE MENDEZ 24 HR Interval Summary Free Text/Dictation Hb dropped to 5.8, BP stable Exam/Review of Systems Vital Signs Vitals Vital Signs Date Temp Pulse Resp B/P (MAP) Pulse Ox O2 O2 Flow FiO2 Time Delivery Rate 12/03/18 98.1 77 18 120/57 95 Nasal 07:30 (78) Cannula 12/03/18 4.0 05:50 12/02/18 40 03:59 Intake and Output 12/02/18 12/02/18 12/03/18 1515:00 23:00 07:00 IntakeIntake Total 370 ml OutputOutput Total 2140 ml 350 ml 75 ml BalanceBalance -2140 ml 20 ml -75 ml Exam Constitutional: moderate distress Respiratory: crackles/rales, diminished breath sounds Cardiovascular: regular rate and rhythm, nl pulses Gastrointestinal: soft, non-tender; ND, BS+ Musculoskeletal: other (eschar on L toe) Extremities: edema, pitting pedal edema, + right femoral Mic Catheter 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: lethargic, non focal Medications Medications Current Medications Albuterol/ Ipratropium (Duoneb) 3 ml Q6HWA RESP THERAPY HHN Last administered on 12/02/18at 21:04; Admin Dose 3 ML; Start 11/26/18 at 08:00 Acetaminophen (Tylenol Tab) 500 mg Q6H PRN PO MILD PAIN(1-3)OR ELEVATED TEMP Last administered on 12/01/18at 20:36; Admin Dose 500 MG; Start 11/25/18 at 22:30 Albumin Human 50 ml @ 100 mls/hr WITH DIALYSIS PRN IV SBP lower than 90 mm Hg ; Start 11/26/18 at 14:00 Sodium Chloride (NS) -To prime the dialy... DIRECTED FOR HD PRN IV SBP lower than 90 mm Hg ; Start 11/26/18 at 14:00 IV Flush (NS 10 ml) 10 ml PRN PRN IV IV PROTOCOL; Start 11/26/18 at 14:30 Hydralazine HCl (Apresoline) 20 mg Q6H PRN IV SBP > 160 Last administered on 11/29/18at 12:33; Admin Dose 20 MG; Start 11/28/18 at 07:00 Albuterol/ Ipratropium (Duoneb) 3 ml Q4H RESP THERAPY PRN HHN SHORTNESS OF CHRISTIE ATH Last administered on 12/02/18at 03:49; Admin Dose 3 ML; Start 11/29/18 at 01:00 Nifedipine (Procardia Xl) 60 mg BID PO Last administered on 12/02/18 20:34; Admin Dose 60 MG; Start 11/29/18 at 14:00 Metoprolol Tartrate (Lopressor) 25 mg BID PO Last administered on 12/02/18 20:34; Admin Dose 25 MG; Start 11/30/18 at 21:00 Metoprolol Tartrate (Lopressor) 5 mg Q4H PRN IV HR>110 Hold SBP<100; Start 11/30/18 at 12:30 Heparin Sodium (Porcine) (Heparin (5000 Units/1ml)) 5,000 unit Q8 SC Last administered on 12/03/18 05:53; Admin Dose 5,000 UNIT; Start 11/30/18 at 14:00 Heparin Sodium (Porcine) (Heparin (1000 Units/ml)) 2,800 unit AFTER DIALYSIS CATHETER Last administered on 12/01/18 13:08; Admin Dose 2,800 UNIT; Start 12/01/18 at 11:30 Levothyroxine Sodium (Synthroid Iv) 100 mcg DAILY@06 IV Last administered on 12/03/18 05:46; Admin Dose 100 MCG; Start 12/02/18 at 06:00 Haloperidol (Haldol) 2 mg Q6H PRN IV hallucinations Last administered on 12/02/18 03:21; Admin Dose 2 MG; Start 12/01/18 at 19:30 GI HARTMAN MD Dec 03, 2018 08:33
[2018-12-03] MEDS: ALBUTEROL/IPRATROPIUM (NEB) 3 ML AMP HHN SCH ×3 (08:52→20:30)
[2018-12-03] MEDS: NIFEdipine (XL) 60 MG TAB PO SCH ×2 (09:00→20:38)
--- NOTE | 2018-12-03 10:59 | CONS ---
Date/Time of Note Date/Time of Note DATE: 12/03/18 TIME: 10:56 Assessment/Plan Assessment/Plan Assessment/Plan Assessment and recommendations; 1. Patient with history of cardiomyopathy admitted for hypoxemia due to com bination of CHF as well as chronic renal failure on hemodialysis. 2. Severe anemia. 3. UTI. 4. Coagulase-negative staph aureus bacteremia. Likely contamination. Recent cultures are negative. 5. History of hypothyroidism. Discontinue some cutaneous heparin. Start Protonix 40 mg IV daily. He modialysis per monotype operator. Prognosis is poor. Hospice should be considered. Result Diagram: 12/03/18 0706 12/03/18 0511 Results 24hrs Laboratory Tests Test 12/03/18 05:11 12/03/18 07:06 White Blood Count 16.9 H 16.6 H Red Blood Count 1.87 #L 1.87 L Hemoglobin 5.8 #*L 5.7 *L Hematocrit 18.1 #L 18.0 L Mean Corpuscular Volume 96.8 96.3 Mean Corpuscular Hemoglobin 31.0 30.5 Mean Corpuscular Hemoglobin Concent 32.0 31.7 L Red Cell Distribution Width 16.2 H 16.1 H Platelet Count 117 L 111 L Mean Platelet Volume 11.4 H 11.1 H Immature Granulocytes % 1.400 H 1.300 H Neutrophils % Segmented Neutrophils % (Manual) 92 H 86 H Band Neutrophils % (Manual) 2 4 Lymphocytes % Lymphocytes % (Manual) 3 L 7 L Monocytes % Monocytes % (Manual) 1 1 Eosinophils % Basophils % Myelocytes % (Manual) 2 H 1 H Nucleated Red Blood Cells % 0.0 1 H Immature Granulocytes # 0.240 H 0.220 H Neutrophils # Neutrophils # (Manual) 15.6 H 14.4 H Band Neutrophils # 0.3 0.6 Lymphocytes (Manual) 0.5 L 1.1 Lymphocytes # Monocytes # Monocytes # (Manual) 0.1 L 0.1 L Eosinophils # Basophils # Myelocytes # 0.3 H 0.1 H Nucleated Red Blood Cells # Toxic Granulation 1+ Platelet Estimate DECREASED DECREASED Anisocytosis 1+ 1+ Macrocytosis 1+ 1+ Ovalocytes 1+ Sodium Level 140 Potassium Level 3.6 Chloride Level 105 Carbon Dioxide Level 28 Anion Gap 7 Blood Urea Nitrogen 92 H Creatinine 3.36 H Est Glomerular Filtrat Rate mL/min Glucose Level 95 Calcium Level 8.2 L Eosinophils % (Manual) 1 Pathologist Review (Hematology) YES Polychromasia 1+ Hypochromasia 1+ Poikilocytosis 1+ Basophilic Stippling 1+ Consultation Date/Type/Reason Admit Date/Time Nov 26, 2018 at 11:28 Initial Consult Date 11/27/18 Type of Consult Pulmonary Requesting Provider: KATIE MNEDEZ 24 HR Interval Summary Free Text/Dictation Patient's condition is stable. Patient appears comfortable. Able to communicate. Denies any shortness of breath. General exam; elderly female, awake and alert. Currently in no distress. Exam/Review of Systems Vital Signs Vitals Vital Signs Date Temp Pulse Resp B/P (MAP) Pulse Ox O2 O2 Flow FiO2 Time Delivery Rate 12/03/18 57 09:10 12/03/18 20 95 Nasal 4.0 08:55 Cannula 12/03/18 98.1 120/57 07:30 (78) 12/02/18 40 03:59 Intake and Output 12/02/18 12/02/18 12/03/18 1515:00 23:00 07:00 IntakeIntake Total 370 ml OutputOutput Total 2140 ml 350 ml 75 ml BalanceBalance -2140 ml 20 ml -75 ml Exam HEENT exam; supple neck, positive JVD. No lymphadenopathy. Midline trachea. No thyromegaly. Chest exam; diminished breath sounds bilaterally. S1-S2 audible, no murmurs. Abdomen exam; soft, nontender. No organomegaly. Bowel sounds audible. Extremity exam; trace edema. APPRAISAL SPECIALIST exam; no focal motor deficit. Medications Medications Current Medications Albuterol/ Ipratropium (Duoneb) 3 ml Q6HWA RESP THERAPY HHN Last administered on 12/03/18at 08:52; Admin Dose 3 ML; Start 11/26/18 at 08:00 Acetaminophen (Tylenol Tab) 500 mg Q6H PRN PO MILD PAIN(1-3)OR ELEVATED TEMP Last administered on 12/01/18at 20:36; Admin Dose 500 MG; Start 11/25/18 at 22:30 Albumin Human 50 ml @ 100 mls/hr WITH DIALYSIS PRN IV SBP lower than 90 mm Hg ; Start 11/26/18 at 14:00 Sodium Chloride (NS) -To prime the dialy... DIRECTED FOR HD PRN IV SBP lower than 90 mm Hg ; Start 11/26/18 at 14:00 IV Flush (NS 10 ml) 10 ml PRN PRN IV IV PROTOCOL; Start 11/26/18 at 14:30 Hydralazine HCl (Apresoline) 20 mg Q6H PRN IV SBP > 160 Last administered on 11/29/18 12:33; Admin Dose 20 MG; Start 11/28/18 at 07:00 Albuterol/ Ipratropium (Duoneb) 3 ml Q4H RESP THERAPY PRN HHN SHORTNESS OF BREATH Last administered on 12/02/18 03:49; Admin Dose 3 ML; Start 11/29/18 at 01:00 Nifedipine (Procardia Xl) 60 mg BID PO Last administered on 12/02/18 20:34; Admin Dose 60 MG; Start 11/29/18 at 14:00 Metoprolol Tartrate (Lopressor) 25 mg BID PO Last administered on 12/02/18 20:34; Admin Dose 25 MG; Start 11/30/18 at 21:00 Metoprolol Tartrate (Lopressor) 5 mg Q4H PRN IV HR>110 Hold SBP<100; Start 11/30/18 at 12:30 Heparin Sodium (Porcine) (Heparin (5000 Units/1ml)) 5,000 unit Q8 SC Last administered on 12/03/18 05:53; Admin Dose 5,000 UNIT; Start 11/30/18 at 14:00 Heparin Sodium (Porcine) (Heparin (1000 Units/ml)) 2,800 unit AFTER DIALYSIS CATHETER Last administered on 12/01/18 13:08; Admin Dose 2,800 UNIT; Start 12/01/18 at 11:30 Levothyroxine Sodium (Synthroid Iv) 100 mcg DAILY@06 IV Last administered on 12/03/18 05:46; Admin Dose 100 MCG; Start 12/02/18 at 06:00 Haloperidol (Haldol) 2 mg Q6H PRN IV hallucinations Last administered on 12/02/18 03:21; Admin Dose 2 MG; Start 12/01/18 at 19:30 AVERY URBINA Dec 03, 2018 10:59
[2018-12-03] MEDS: ACETAMINOPHEN 500 MG TAB PO PRN (12:15)
--- NOTE | 2018-12-03 14:02 | CONS ---
Date/Time of Note Date/Time of Note DATE: 12/03/18 TIME: 13:59 Assessment/Plan Assessment/Plan Hospital Course IMPRESSION: 1. Shock, on dopamine pressor support at this time with previously preserved EF by most recent echo September 2018 of 60% to 65%.-improved off dopamine 2. Abnormal echocardiogram, assess for acute coronary syndrome. 3. Congestive heart failure, diastolic, acute on chronic, in the setting of colin al failure. 4. Renal failure. 5. Anemia, status post transfusions. 6. Hyponatremia. 7. Urinary tract infection. 8. Tachycardia-c/w AF/AFL with RVR 9. Bradycardia- to 40's when converts to SR REcc: -Now on tele -follow BP closely on procardia XL and low dose BB as tolerated only -Continue abx's and f/u cx data -Follow volume status clsoely -Follow for recurrent significant bradycardia -Continue steroids/bronchodilators Result Diagram: 12/03/18 0706 12/03/18 0511 Results 24hrs Laboratory Tests Test 12/03/18 05:11 12/03/18 06:35 12/03/18 07:06 White Blood Count 16.9 H 16.6 H Red Blood Count 1.87 #L 1.87 L Hemoglobin 5.8 #*L 5.7 *L Hematocrit 18.1 #L 18.0 L Mean Corpuscular Volume 96.8 96.3 Mean Corpuscular Hemoglobin 31.0 30.5 Mean Corpuscular Hemoglobin Concent 32.0 31.7 L Red Cell Distribution Width 16.2 H 16.1 H Platelet Count 117 L 111 L Mean Platelet Volume 11.4 H 11.1 H Immature Granulocytes % 1.400 H 1.300 H Neutrophils % Segmented Neutrophils % (Manual) 92 H 86 H Band Neutrophils % (Manual) 2 4 Lymphocytes % Lymphocytes % (Manual) 3 L 7 L Monocytes % Monocytes % (Manual) 1 1 Eosinophils % Basophils % Myelocytes % (Manual) 2 H 1 H Nucleated Red Blood Cells % 0.0 1 H Immature Granulocytes # 0.240 H 0.220 H Neutrophils # Neutrophils # (Manual) 15.6 H 14.4 H Band Neutrophils # 0.3 0.6 Lymphocytes (Manual) 0.5 L 1.1 Lymphocytes # Monocytes # Monocytes # (Manual) 0.1 L 0.1 L Eosinophils # Basophils # Myelocytes # 0.3 H 0.1 H Nucleated Red Blood Cells # Toxic Granulation 1+ Platelet Estimate DECREASED DECREASED Anisocytosis 1+ 1+ Macrocytosis 1+ 1+ Ovalocytes 1+ Sodium Level 140 Potassium Level 3.6 Chloride Level 105 Carbon Dioxide Level 28 Anion Gap 7 Blood Urea Nitrogen 92 H Creatinine 3.36 H Est Glomerular Filtrat Rate mL/min Glucose Level 95 Calcium Level 8.2 L Stool Occult Blood POSITIVE Eosinophils % (Manual) 1 Pathologist Review (Hematology) YES Polychromasia 1+ Hypochromasia 1+ Poikilocytosis 1+ Basophilic Stippling 1+ Consultation Date/Type/Reason Admit Date/Time Nov 26, 2018 at 11:28 Initial Consult Date 11/26/18 Type of Consult cardiology Reason for Consultation HTN Requesting Provider: KATIE MENDEZ Exam/Review of Systems Vital Signs Vitals Vital Signs Date Temp Pulse Resp B/P (MAP) Pulse Ox O2 O2 Flow FiO2 Time Delivery Rate 12/03/18 4.0 13:50 12/03/18 72 20 99 Nasal 13:48 Cannula 12/03/18 115/59 11:25 (77) 12/03/18 98.1 07:30 12/02/18 40 03:59 Intake and Output 12/02/18 12/02/18 12/03/18 1414:59 22:59 06:59 IntakeIntake Total 50 ml 370 ml OutputOutput Total 2140 ml 350 ml 75 ml BalanceBalance -2090 ml 20 ml -75 ml Exam Review of Systems: CONSTITUTIONAL: No fevers, chills. PULMONARY: No sob CARDIOVASCULAR: No chest pain/palpitations GASTROINTESTINAL: No nausea/vomiting. GENITOURINARY: No hematuria/dysuria. MUSCULOSKELETAL: No myagias/arthalgias. PSYCHIATRIC: The patient denies depression. NEUROLOGIC: No weakness Constitutional: alert Psych: no complaints Head: normocephalic ENMT: mucosa pink and moist Neck: supple, jvd Respiratory: diminished breath sounds Cardiovascular: regular rate and rhythm Gastrointestinal: soft, non-tender Musculoskeletal: muscle tone (normal) Extremities: edema (none) 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: other (No focalm deficits) Medications Medications Current Medications Albuterol/ Ipratropium (Duoneb) 3 ml Q6HWA RESP THERAPY HHN Last administered on 12/03/18at 13:46; Admin Dose 3 ML; Start 11/26/18 at 08:00 Acetaminophen (Tylenol Tab) 500 mg Q6H PRN PO MILD PAIN(1-3)OR ELEVATED TEMP Last administered on 12/03/18 12:15; Admin Dose 500 MG; Start 11/25/18 at 22:30 Albumin Human 50 ml @ 100 mls/hr WITH DIALYSIS PRN IV SBP lower than 90 mm Hg ; Start 11/26/18 at 14:00 Sodium Chloride (NS) -To prime the dialy... DIRECTED FOR HD PRN IV SBP lower than 90 mm Hg ; Start 11/26/18 at 14:00 IV Flush (NS 10 ml) 10 ml PRN PRN IV IV PROTOCOL; Start 11/26/18 at 14:30 Hydralazine HCl (Apresoline) 20 mg Q6H PRN IV SBP > 160 Last administered on 11/29/18 12:33; Admin Dose 20 MG; Start 11/28/18 at 07:00 Albuterol/ Ipratropium (Duoneb) 3 ml Q4H RESP THERAPY PRN HHN SHORTNESS OF BREATH Last administered on 12/02/18 03:49; Admin Dose 3 ML; Start 11/29/18 at 01:00 Nifedipine (Procardia Xl) 60 mg BID PO Last administered on 12/02/18 20:34; Admin Dose 60 MG; Start 11/29/18 at 14:00 Metoprolol Tartrate (Lopressor) 25 mg BID PO Last administered on 12/02/18 20:34; Admin Dose 25 MG; Start 11/30/18 at 21:00 Metoprolol Tartrate (Lopressor) 5 mg Q4H PRN IV HR>110 Hold SBP<100; Start 11/30/18 at 12:30 Heparin Sodium (Porcine) (Heparin (1000 Units/ml)) 2,800 unit AFTER DIALYSIS CATHETER Last administered on 12/01/18 13:08; Admin Dose 2,800 UNIT; Start 12/01/18 at 11:30 Levothyroxine Sodium (Synthroid Iv) 100 mcg DAILY@06 IV Last administered on 12/03/18 05:46; Admin Dose 100 MCG; Start 12/02/18 at 06:00 Haloperidol (Haldol) 2 mg Q6H PRN IV hallucinations Last administered on 1/9/19at 03:21; Admin Dose 2 MG; Start 12/01/18 at 19:30 Pantoprazole (Protonix Iv) 40 mg DAILY@06 IV ; Start 12/04/18 at 06:00 ALVINA GARCIA Dec 03, 2018 14:02
[2018-12-03] MEDS ORDERED: SOD CHLORIDE 0.9% 250 ML IV* ONE (15:14)
--- NOTE | 2018-12-03 16:34 | PN ---
Date/Time of Note Date/Time of Note DATE: 12/03/18 TIME: 16:25 Assessment/Plan VTE Prophylaxis Risk score (from [facility])>0 risk: 14 SCD applied (from [facility]): No SCD contraindicated: other Pharmacological prophylaxis: NA/contraindicated Pharm contraindication: bleeding Lines/Catheters IV Catheter Type (from [facility]): PICC Line Central line still needed: Yes Urinary Cath still in place: Yes Reason Cath still needed: urinary retention Assessment/Plan Hospital Course Patient's hemoglobin dropped to 5.7, stool for OB is positive, heparin is stopped, continue Protonix IV. Patient needs a total at least 3 units of packed red blood cells, given pulmonary edema and CHF , per discussion with Dr. Hill, will transfuse 1 unit stat and 2 units with hemodialysis. Patient is awake, confused, continues on supplemental oxygen via nasal cannula. Assessment/Plan -Anemia secondary to GI bleed. Protonix IV. Heparin is stopped. Transfuse as needed. Dr. Lewis is asked to see patient in gastroenterology consultation. -Acute respiratory failure. Dr. Garcia is following in pulmonology consultation. -Sepsis secondary to UTI. Continue antibiotics per ID. Dr. Jordan is following in infection disease consultation. -S/p septic and cardiogenic shock -Left lower lobe pneumonia -Acute on chronic systolic and diastolic congestive heart failure. Dr. Iraheta is following in cardiology consultation. -ARF on CKD. Patient started on hemodialysis during this admission. Continue hemodialysis per nephrology. Dr Hill is following in nephrology consultation. -Pulmonary edema -Hypothyroidism, continue Synthroid. -DNR status Further recommendations based on clinical course. Plan of care discussed with Dr. Olivier. Result Diagram: 12/03/18 0706 12/03/18 0511 Results 24hrs Laboratory Tests Test 12/03/18 05:11 12/03/18 06:35 12/03/18 07:06 White Blood Count 16.9 H 16.6 H Red Blood Count 1.87 #L 1.87 L Hemoglobin 5.8 #*L 5.7 *L Hematocrit 18.1 #L 18.0 L Mean Corpuscular Volume 96.8 96.3 Mean Corpuscular Hemoglobin 31.0 30.5 Mean Corpuscular Hemoglobin Concent 32.0 31.7 L Red Cell Distribution Width 16.2 H 16.1 H Platelet Count 117 L 111 L Mean Platelet Volume 11.4 H 11.1 H Immature Granulocytes % 1.400 H 1.300 H Neutrophils % Segmented Neutrophils % (Manual) 92 H 86 H Band Neutrophils % (Manual) 2 4 Lymphocytes % Lymphocytes % (Manual) 3 L 7 L Monocytes % Monocytes % (Manual) 1 1 Eosinophils % Basophils % Myelocytes % (Manual) 2 H 1 H Nucleated Red Blood Cells % 0.0 1 H Immature Granulocytes # 0.240 H 0.220 H Neutrophils # Neutrophils # (Manual) 15.6 H 14.4 H Band Neutrophils # 0.3 0.6 Lymphocytes (Manual) 0.5 L 1.1 Lymphocytes # Monocytes # Monocytes # (Manual) 0.1 L 0.1 L Eosinophils # Basophils # Myelocytes # 0.3 H 0.1 H Nucleated Red Blood Cells # Toxic Granulation 1+ Platelet Estimate DECREASED DECREASED Anisocytosis 1+ 1+ Macrocytosis 1+ 1+ Ovalocytes 1+ Sodium Level 140 Potassium Level 3.6 Chloride Level 105 Carbon Dioxide Level 28 Anion Gap 7 Blood Urea Nitrogen 92 H Creatinine 3.36 H Est Glomerular Filtrat Rate mL/min Glucose Level 95 Calcium Level 8.2 L Stool Occult Blood POSITIVE Eosinophils % (Manual) 1 Pathologist Review (Hematology) YES Polychromasia 1+ Hypochromasia 1+ Poikilocytosis 1+ Basophilic Stippling 1+ Exam/Review of Systems Vital Signs Vitals Vital Signs Date Temp Pulse Resp B/P (MAP) Pulse Ox O2 O2 Flow FiO2 Time Delivery Rate 12/03/18 98.3 56 18 141/60 100 Nasal 15:25 (87) Cannula 12/03/18 4.0 13:50 12/02/18 40 03:59 Intake and Output 12/02/18 12/02/18 12/03/18 1515:00 23:00 07:00 IntakeIntake Total 50 ml 370 ml OutputOutput Total 2140 ml 350 ml 75 ml BalanceBalance -2090 ml 20 ml -75 ml Exam Constitutional: frail, generalized edema Neck: supple Respiratory: diminished breath sounds Cardiovascular: Irregular rhythm Gastrointestinal: soft, non-tender Extremities: normal pulses, edema 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: confused Medications Medications Current Medications Albuterol/ Ipratropium (Duoneb) 3 ml Q6HWA RESP THERAPY HHN Last administered on 12/03/18at 13:46; Admin Dose 3 ML; Start 11/26/18 at 08:00 Acetaminophen (Tylenol Tab) 500 mg Q6H PRN PO MILD PAIN(1-3)OR ELEVATED TEMP L ast administered on 12/03/18 12:15; Admin Dose 500 MG; Start 11/25/18 at 22:30 Albumin Human 50 ml @ 100 mls/hr WITH DIALYSIS PRN IV SBP lower than 90 mm Hg ; Start 11/26/18 at 14:00 Sodium Chloride (NS) -To prime the dialy... DIRECTED FOR HD PRN IV SBP lower than 90 mm Hg ; Start 11/26/18 at 14:00 IV Flush (NS 10 ml) 10 ml PRN PRN IV IV PROTOCOL; Start 11/26/18 at 14:30 Hydralazine HCl (Apresoline) 20 mg Q6H PRN IV SBP > 160 Last administered on 11/29/18 12:33; Admin Dose 20 MG; Start 11/28/18 at 07:00 Albuterol/ Ipratropium (Duoneb) 3 ml Q4H RESP THERAPY PRN HHN SHORTNESS OF BREATH Last administered on 12/02/18 03:49; Admin Dose 3 ML; Start 11/29/18 at 01:00 Nifedipine (Procardia Xl) 60 mg BID PO Last administered on 12/02/18 20:34; Admin Dose 60 MG; Start 11/29/18 at 14:00 Metoprolol Tartrate (Lopressor) 25 mg BID PO Last administered on 12/02/18 20:34; Admin Dose 25 MG; Start 11/30/18 at 21:00 Metoprolol Tartrate (Lopressor) 5 mg Q4H PRN IV HR>110 Hold SBP<100; Start 11/30/18 at 12:30 Heparin Sodium (Porcine) (Heparin (1000 Units/ml)) 2,800 unit AFTER DIALYSIS CATHETER Last administered on 12/01/18 13:08; Admin Dose 2,800 UNIT; Start 12/01/18 at 11:30 Levothyroxine Sodium (Synthroid Iv) 100 mcg DAILY@06 IV Last administered on 12/03/18 05:46; Admin Dose 100 MCG; Start 12/02/18 at 06:00 Haloperidol (Haldol) 2 mg Q6H PRN IV hallucinations Last administered on 1/9/19at 03:21; Admin Dose 2 MG; Start 12/01/18 at 19:30 Pantoprazole (Protonix Iv) 40 mg DAILY@06 IV ; Start 12/04/18 at 06:00 EDWAR VARGAS Dec 03, 2018 16:34
[2018-12-04] VITALS (22 sets, daily range): BP systolic 103–135; BP diastolic 47–68; PULSE 64–112; RESP 18–20
[2018-12-04] MEDS ORDERED: VITAMIN A & D 5 GM OINT PACKET TOP ONE (04:45)
[2018-12-04] MEDS: LEVOTHYROXINE 100 MCG VIAL IV SCH (05:26)
[2018-12-04] MEDS: PANTOPRAZOLE 40 MG INJ IV SCH ×3 (05:26→22:22)
[2018-12-04] MEDS ORDERED: PANTOPRAZOLE 40 MG INJ IV SCH (06:00)
[2018-12-04] MEDS: ALBUTEROL/IPRATROPIUM (NEB) 3 ML AMP HHN SCH ×3 (08:00→20:22)
--- NOTE | 2018-12-04 08:30 | CONS ---
Date/Time of Note Date/Time of Note DATE: 12/04/18 TIME: 08:29 Assessment/Plan Assessment/Plan Hospital Course 88 yo female presented with SOB, found to have septic and cardiogenic shock, stable on telemetry floor with acute drop in HH with positive FOB 1. Anemia -acute on chronic secondary to blood loss -pos FOB -hematochezia, no melena 2. Acute respiratory failure -improved -followed by Dr. Garcia 3. VRE in urine -pt was septic, stable now, ID following 4. S/P septic and cardiogenic shock 5. CKD III with acute renal failure -started on HD during this admission. -Dr Hill, nephrology 6. Acute on chronic diastolic CHF -Dr Iraheta from cardiology 7. Left lower lobe pneumonia 8. Hypothyroidism -management by primary 9. DNR status Plan: Patient currently is not having N/V or active bleeding from rectum. EGD and/or colonoscopy I spoke with [place] the daughter who consent to which ever procedure, EGD /colonoscopy, that is necessary. Shara, patient's RN, witnessed consent. No anticoagulants Monitor HH and replace as needed, q [address] Hill, nephrology has ordered 2 units to be given with HD Dr Cuevas will be placing Mic catheter at 1500 and pt will be receiving dialysis right afterward. PPI BID IV Cardiac clearance NPO Pt examined and plan of care discussed with Dr. Lewis Result Diagram: 12/04/18 0525 12/04/18 0525 Results 24hrs Laboratory Tests Test 12/04/18 05:25 White Blood Count 14.9 H Red Blood Count 2.06 L Hemoglobin 6.3 *L Hematocrit 19.1 L Mean Corpuscular Volume 92.7 Mean Corpuscular Hemoglobin 30.6 Mean Corpuscular Hemoglobin Concent 33.0 Red Cell Distribution Width 15.9 H Platelet Count 134 #L Mean Platelet Volume 11.0 H Immature Granulocytes % 1.500 H Neutrophils % 90.8 H Lymphocytes % 4.4 L Monocytes % 2.6 Eosinophils % 0.6 Basophils % 0.1 Nucleated Red Blood Cells % 0.0 Immature Granulocytes # 0.220 H Neutrophils # 13.5 H Lymphocytes # 0.7 L Monocytes # 0.4 Eosinophils # 0.1 Basophils # 0.0 Nucleated Red Blood Cells # 0.0 Sodium Level 139 Potassium Level 3.4 L Chloride Level 105 Carbon Dioxide Level 24 Anion Gap 10 Blood Urea Nitrogen 108 H Creatinine 3.86 H Est Glomerular Filtrat Rate mL/min Glucose Level 157 Calcium Level 8.2 L Consultation Date/Type/Reason Admit Date/Time Nov 26, 2018 at 11:28 Hx of Present Illness 88 yo female with CHF, CKD stage 3, aortic stenosis, COPD, Hypertension, hyperlipidemia, anemia of chronic disease, hypothyroidism, gout and depression was transferred fro SNF for SOB and increased bilateral lower extremities edema. She was found to have cardiopulmonary congestion and bilateral pleural effusions. She was hypotensive, bradycardic, placed on dopamine gtt and transferred to ICU. She has been off dopamine and on telemetry floor. Patient was on heparin. Patient's hgb was trending down and then dropped from 7.4 to 5.8, requiring 3 units PRBC and FOB was positive. Today hgb 6.3. Platelet count 134. WBC 14.9 which is coming down. LFTs wnl except AST which is 63.BUN/creat 108/3.86.INR on 11/25 was 0.90. Hep panel negative. Patient c/o being cold. Denies nausea or vomiting. States her stomach hurts everywhere when palpated. RN states she was endorsed bloody stools not melena. Pt denies CP and SOB. Denies headaches or visuals changes. Denies dysuria. Past Medical History Medical History: congestive heart failure, coronary artery disease, GERD, high cholesterol, hypertension, hypothyroid, renal disease, urinary tract infection, other (COPD, neuropathy) Medications Current Medications Albuterol/ Ipratropium (Duoneb) 3 ml Q6HWA RESP THERAPY HHN Last administered on 12/03/18at 20:30; Admin Dose 3 ML; Start 11/26/18 at 08:00 Acetaminophen (Tylenol Tab) 500 mg Q6H PRN PO MILD PAIN(1-3)OR ELEVATED TEMP Last administered on 12/03/18at 12:15; Admin Dose 500 MG; Start 11/25/18 at 22:30 Albumin Human 50 ml @ 100 mls/hr WITH DIALYSIS PRN IV SBP lower than 90 mm Hg ; Start 11/26/18 at 14:00 Sodium Chloride (NS) -To prime the dialy... DIRECTED FOR HD PRN IV SBP lower than 90 mm Hg ; Start 11/26/18 at 14:00 IV Flush (NS 10 ml) 10 ml PRN PRN IV IV PROTOCOL; Start 11/26/18 at 14:30 Hydralazine HCl (Apresoline) 20 mg Q6H PRN IV SBP > 160 Last administered on 11/29/18at 12:33; Admin Dose 20 MG; Start 11/28/18 at 07:00 Albuterol/ Ipratropium (Duoneb) 3 ml Q4H RESP THERAPY PRN HHN SHORTNESS OF BREATH Last administered on 12/02/18 03:49; Admin Dose 3 ML; Start 11/29/18 at 01:00 Nifedipine (Procardia Xl) 60 mg BID PO Last administered on 12/03/18 20:38; Admin Dose 60 MG; Start 11/29/18 at 14:00 Metoprolol Tartrate (Lopressor) 25 mg BID PO Last administered on 12/02/18at 20:34; Admin Dose 25 MG; Start 11/30/18 at 21:00 Metoprolol Tartrate (Lopressor) 5 mg Q4H PRN IV HR>110 Hold SBP<100; Start 11/30/18 at 12:30 Heparin Sodium (Porcine) (Heparin (1000 Units/ml)) 2,800 unit AFTER DIALYSIS CATHETER Last administered on 12/01/18 13:08; Admin Dose 2,800 UNIT; Start 12/01/18 at 11:30 Levothyroxine Sodium (Synthroid Iv) 100 mcg DAILY@06 IV Last administered on 12/04/18 05:26; Admin Dose 100 MCG; Start 12/02/18 at 06:00 Haloperidol (Haldol) 2 mg Q6H PRN IV hallucinations Last administered on 12/02/18 03:21; Admin Dose 2 MG; Start 12/01/18 at 19:30 Pantoprazole (Protonix Iv) 40 mg BID IV Last administered on 12/04/18 05:26; Admin Dose 40 MG; Start 12/04/18 at 06:00 Allergies: Coded Allergies: aspirin (Verified Allergy, Unknown, 11/25/18) Past Surgical History Past Surgical Hx: appendectomy, cholecystectomy Social History Alcohol Use: none Smoking Status: Never smoker Drug Use: none Exam/Review of Systems Vital Signs Vitals Vital Signs Date Temp Pulse Resp B/P (MAP) Pulse Ox O2 O2 Flow FiO2 Time Delivery Rate 12/04/18 Nasal 3.0 08:09 Cannula 12/04/18 97.8 74 18 119/54 100 04:11 (75) 12/02/18 40 03:59 Intake and Output 12/03/18 12/03/18 12/04/18 1515:00 23:00 07:00 IntakeIntake Total 480 ml 250 ml OutputOutput Total 325 ml 350 ml BalanceBalance 155 ml -100 ml Exam Constitutional: alert, oriented Psych: no complaints Head: normocephalic Eyes: PERRL ENMT: mucosa pink and moist Respiratory: other (RUL rhonchi/congestion, BLL diminished breath sounds, mild rhonchi in JAGU[place]) Cardiovascular: regular rate and rhythm Gastrointestinal: soft, bowel sounds, tender Musculoskeletal: nl extremities to inspection Extremities: other (Mild edema in BLE) 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: nl mental status Medications Medications Current Medications Albuterol/ Ipratropium (Duoneb) 3 ml Q6HWA RESP THERAPY HHN Last administered on 12/03/18at 20:30; Admin Dose 3 ML; Start 11/26/18 at 08:00 Acetaminophen (Tylenol Tab) 500 mg Q6H PRN PO MILD PAIN(1-3)OR ELEVATED TEMP Last administered on 12/03/18at 12:15; Admin Dose 500 MG; Start 11/25/18 at 22:30 Albumin Human 50 ml @ 100 mls/hr WITH DIALYSIS PRN IV SBP lower than 90 mm Hg ; Start 11/26/18 at 14:00 Sodium Chloride (NS) -To prime the dialy... DIRECTED FOR HD PRN IV SBP lower than 90 mm Hg ; Start 11/26/18 at 14:00 IV Flush (NS 10 ml) 10 ml PRN PRN IV IV PROTOCOL; Start 11/26/18 at 14:30 Hydralazine HCl (Apresoline) 20 mg Q6H PRN IV SBP > 160 Last administered on 11/29/18at 12:33; Admin Dose 20 MG; Start 11/28/18 at 07:00 Albuterol/ Ipratropium (Duoneb) 3 ml Q4H RESP THERAPY PRN HHN SHORTNESS OF BREATH Last administered on 12/02/18at 03:49; Admin Dose 3 ML; Start 11/29/18 at 01:00 Nifedipine (Procardia Xl) 60 mg BID PO Last administered on 12/03/18 20:38; Admin Dose 60 MG; Start 11/29/18 at 14:00 Metoprolol Tartrate (Lopressor) 25 mg BID PO Last administered on 12/02/18 20:34; Admin Dose 25 MG; Start 11/30/18 at 21:00 Metoprolol Tartrate (Lopressor) 5 mg Q4H PRN IV HR>110 Hold SBP<100; Start 11/30/18 at 12:30 Heparin Sodium (Porcine) (Heparin (1000 Units/ml)) 2,800 unit AFTER DIALYSIS CATHETER Last administered on 12/01/18 13:08; Admin Dose 2,800 UNIT; Start 12/01/18 at 11:30 Levothyroxine Sodium (Synthroid Iv) 100 mcg DAILY@06 IV Last administered on 12/04/18 05:26; Admin Dose 100 MCG; Start 12/02/18 at 06:00 Haloperidol (Haldol) 2 mg Q6H PRN IV hallucinations Last administered on 12/02/18 03:21; Admin Dose 2 MG; Start 12/01/18 at 19:30 Pantoprazole (Protonix Iv) 40 mg BID IV Last administered on 12/04/18 05:26; Admin Dose 40 MG; Start 12/04/18 at 06:00 LAURA HERNANDEZ Dec 04, 2018 08:30
[2018-12-04] MEDS: METOPROLOL 25 MG TAB PO SCH ×2 (09:00→21:00)
[2018-12-04] MEDS: NIFEdipine (XL) 60 MG TAB PO SCH ×2 (09:00→21:00)
--- NOTE | 2018-12-04 09:37 | CONS ---
[facility] HCIS Consult Follow-up Patient Name: Rupinder Simon Unit Number: [id number] Date of : 1930 Patient Status: Admitted Inpatient Attending Doctor: Jaylen Olivier MD Edit: RICHARD ZUNIGA M.D. on 12/05/18 @ 23:03 Nadia attestation: I discussed the management with [employer] Val and agree with her Date/Time of Note Date/Time of Note DATE: 12/04/18 TIME: 09:27 Assessment/Plan Assessment/Plan Hospital Course Assessment/Impression: - Leukocytosis, likely due to steroid 11/25/2018-12/01/2018 - improving - Sepsis due to UTI possibly bacteremia although the latter could be a con taminant - UTI due to klebsiella and proteus, resolving - Bacteremia /2 sets from 11/25/2018 due to coag negative Staph - repeat blood cultures 11/28/18 were neg. - Also a component of SIRS due to acute hypoxic resp failure, acute on chronic renal failure - Acute hypoxic resp failure, probably due to CHF exacerbation +/- aspiration pneumonia/pneumonitis, off bipap - CHF exacerbation, improved after HD - Bradycardia - Acute on chronic renal failure, started on HD on 11/26/2018 - Anemia - Underlying COPD - CAD - Hypothyroidism - TSH elevated and FT4 depressed - Gout - Eschar of L 4th toe, probably ischemic eschar/ischemia - Acute encephalopathy due to sepsis, improving a little Recommendations: - Monitor Pt off systemic antibiotics, continue respiratory treatment, supportiv e care - Pt completed cefepime (11/30/2018-12/02/2018); Pt previously received ceftriaxone () Management d/w nsg and with Dr. Zuniga. Thank you. Result Diagram: 12/04/1825 12/04/18 0525 Results 24hrs Laboratory Tests Test 12/04/18 05:25 White Blood Count 14.9 H Red Blood Count 2.06 L Hemoglobin 6.3 *L Hematocrit 19.1 L Mean Corpuscular Volume 92.7 Mean Corpuscular Hemoglobin 30.6 Mean Corpuscular Hemoglobin Concent 33.0 Red Cell Distribution Width 15.9 H Platelet Count 134 #L Mean Platelet Volume 11.0 H Immature Granulocytes % 1.500 H Neutrophils % 90.8 H Lymphocytes % 4.4 L Monocytes % 2.6 Eosinophils % 0.6 Basophils % 0.1 Nucleated Red Blood Cells % 0.0 Immature Granulocytes # 0.220 H Neutrophils # 13.5 H Lymphocytes # 0.7 L Monocytes # 0.4 Eosinophils # 0.1 Basophils # 0.0 Nucleated Red Blood Cells # 0.0 Sodium Level 139 Potassium Level 3.4 L Chloride Level 105 Carbon Dioxide Level 24 Anion Gap 10 Blood Urea Nitrogen 108 H Creatinine 3.86 H Est Glomerular Filtrat Rate mL/min Glucose Level 157 Calcium Level 8.2 L Consultation Date/Type/Reason Admit Date/Time Nov 26, 2018 at 11:28 Initial Consult Date 11/27/18 Reason for Consultation Infectious Disease Requesting Provider: KATIE MENDEZ 24 HR Interval Summary Free Text/Dictation Pt shakes head "yes" re: cough, and spits out phlegm. Denied other ROS by shaking her head "no." She verbalized "restless leg syndrome." Has remained afebrile, WBC trending down 14.9 today. Pt was unable to receive HD this am d/t femoral cath malfunction, Dr Cuevas will be placing Mic catheter at 1500 and HD will be done afterwards. Exam/Review of Systems Vital Signs Vitals Vital Signs Date Temp Pulse Resp B/P (MAP) Pulse Ox O2 O2 Flow FiO2 Time Delivery Rate 12/04/18 97.6 72 19 103/53 93 08:58 (70) 12/04/18 Nasal 3.0 08:09 Cannula 12/02/18 40 03:59 Intake and Output 12/03/18 12/03/18 12/04/18 1515:00 23:00 07:00 IntakeIntake Total 480 ml 250 ml OutputOutput Total 325 ml 350 ml BalanceBalance 155 ml -100 ml Exam Constitutional: alert, well developed, frail, other (mostly nonverbal, followed simple commands and nodded head "yes" and "no" to questions) Psych: nl mood/affect, other (smiles to me) Head: normocephalic, atraumatic Eyes: nl conjunctiva, nl lids ENMT: nl external ears & nose, nl nasal mucosa & septum, mucosa pink and moist, other (poor dentition ) Neck: supple, non-tender, other (not swollen) Respiratory: congested cough, diminished breath sounds (anteriorly, no wheezing. Breaths appear shallow. ), other (expectorated sputum which was clear onto a tissue. ) Cardiovascular: regular rate and rhythm, nl pulses, other (BUE edema, 2+) Gastrointestinal: soft, non-tender, bowel sounds (normoactive ) Genitourinary - Female: other (F/c draining yellow urine noted. ) Musculoskeletal: nl extremities to inspection Extremities: normal pulses, edema (BUE ) 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: other (follows simple commands, mostly nonverbal but shook head "yes" and "no" to questions.) Skin: nl turgor, ecchymosis (Ephraim dorsal hands/wrists ) Medications Medications Current Medications Albuterol/ Ipratropium (Duoneb) 3 ml Q6HWA RESP THERAPY HHN Last administered on 12/03/18at 20:30; Admin Dose 3 ML; Start 11/26/18 at 08:00 Acetaminophen (Tylenol Tab) 500 mg Q6H PRN PO MILD PAIN(1-3)OR ELEVATED TEMP Last administered on 12/03/18at 12:15; Admin Dose 500 MG; Start 11/25/18 at 22:30 Albumin Human 50 ml @ 100 mls/hr WITH DIALYSIS PRN IV SBP lower than 90 mm Hg ; Start 11/26/18 at 14:00 Sodium Chloride (NS) -To prime the dialy... DIRECTED FOR HD PRN IV SBP lower than 90 mm Hg ; Start 11/26/18 at 14:00 IV Flush (NS 10 ml) 10 ml PRN PRN IV IV PROTOCOL; Start 11/26/18 at 14:30 Hydralazine HCl (Apresoline) 20 mg Q6H PRN IV SBP > 160 Last administered on 11/29/18at 12:33; Admin Dose 20 MG; Start 11/28/18 at 07:00 Albuterol/ Ipratropium (Duoneb) 3 ml Q4H RESP THERAPY PRN HHN SHORTNESS OF BREATH Last administered on 12/02/18 03:49; Admin Dose 3 ML; Start 11/29/18 at 01:00 Nifedipine (Procardia Xl) 60 mg BID PO Last administered on 12/03/18 20:38; Admin Dose 60 MG; Start 11/29/18 at 14:00 Metoprolol Tartrate (Lopressor) 25 mg BID PO Last administered on 12/02/18 20:34; Admin Dose 25 MG; Start 11/30/18 at 21:00 Metoprolol Tartrate (Lopressor) 5 mg Q4H PRN IV HR>110 Hold SBP<100; Start 11/30/18 at 12:30 Heparin Sodium (Porcine) (Heparin (1000 Units/ml)) 2,800 unit AFTER DIALYSIS CATHETER Last administered on 12/01/18 13:08; Admin Dose 2,800 UNIT; Start 12/01/18 at 11:30 Levothyroxine Sodium (Synthroid Iv) 100 mcg DAILY@06 IV Last administered on 12/04/18 05:26; Admin Dose 100 MCG; Start 12/02/18 at 06:00 Haloperidol (Haldol) 2 mg Q6H PRN IV hallucinations Last administered on 12/02/18 03:21; Admin Dose 2 MG; Start 12/01/18 at 19:30 Pantoprazole (Protonix Iv) 40 mg BID IV Last administered on 12/04/18 05:26; A dmin Dose 40 MG; Start 12/04/18 at 06:00 Imaging Imaging CXR 12/01/18 IMPRESSION: Increased interstitial edema suggesting cardiopulmonary congestion. Small right pleural effusion and associated consolidation are unchanged. PRINCE SMITH [employer] SETTER Dec 04, 2018 09:37
--- NOTE | 2018-12-04 14:03 | CONS ---
Date/Time of Note Date/Time of Note DATE: 12/04/18 TIME: 14:03 Assessment/Plan Assessment/Plan Assessment/Plan 1. Oliguric Acute kindey injury on CKD III due to ATN from septic shock, 2. Acute uremic encephalopathy 3. Acute hyperkalemia- resolved 4. Severe metabolic acidosis 5. Septic shock on pressors 2/2 UTI and bacteremia 6. acute hypoxemic respiraotry failure on BIPAP 7. acute on chronic,systolic and diastolic heart failure 8. H/o HTN 9. H/o COPD Plan: started on HD on 11/26/17- - Guanako catheter did not work well, s/p Removal and placement of new guanako, Hb still low- plan for HD today with 2 units PRBC another extra HD is ordered for friday morning IV abx as per PMD, renally dose all abx and monitor electrolytes will follow up Result Diagram: 12/04/18 1152 12/04/18 0525 Results 24hrs Laboratory Tests Test 12/04/18 05:25 12/04/18 11:52 White Blood Count 14.9 H Red Blood Count 2.06 L Hemoglobin 6.3 *L 6.5 *L Hematocrit 19.1 L 19.4 L Mean Corpuscular Volume 92.7 Mean Corpuscular Hemoglobin 30.6 Mean Corpuscular Hemoglobin Concent 33.0 Red Cell Distribution Width 15.9 H Platelet Count 134 #L Mean Platelet Volume 11.0 H Immature Granulocytes % 1.500 H Neutrophils % 90.8 H Lymphocytes % 4.4 L Monocytes % 2.6 Eosinophils % 0.6 Basophils % 0.1 Nucleated Red Blood Cells % 0.0 Immature Granulocytes # 0.220 H Neutrophils # 13.5 H Lymphocytes # 0.7 L Monocytes # 0.4 Eosinophils # 0.1 Basophils # 0.0 Nucleated Red Blood Cells # 0.0 Sodium Level 139 Potassium Level 3.4 L Chloride Level 105 Carbon Dioxide Level 24 Anion Gap 10 Blood Urea Nitrogen 108 H Creatinine 3.86 H Est Glomerular Filtrat Rate mL/min Glucose Level 157 Calcium Level 8.2 L Consultation Date/Type/Reason Admit Date/Time Nov 26, 2018 at 11:28 Initial Consult Date 11/26/18 Type of Consult NEPHROLOGY Requesting Provider: KATIE MENDEZ 24 HR Interval Summary Free Text/Dictation Guanako catheter did not work well, s/p Removal and placement of new guanako, Hb still low Exam/Review of Systems Vital Signs Vitals Vital Signs Date Temp Pulse Resp B/P (MAP) Pulse Ox O2 O2 Flow FiO2 Time Delivery Rate 12/04/18 4.0 13:57 12/04/18 104 20 92 Nasal 13:55 Cannula 12/04/18 98.9 131/58 11:21 (82) 12/02/18 40 03:59 Intake and Output 12/03/18 12/03/18 12/04/18 1515:00 23:00 07:00 IntakeIntake Total 480 ml 250 ml OutputOutput Total 325 ml 350 ml BalanceBalance 155 ml -100 ml Exam Constitutional: moderate distress Respiratory: crackles/rales, diminished breath sounds Cardiovascular: regular rate and rhythm, nl pulses Gastrointestinal: soft, non-tender; ND, BS+ Musculoskeletal: other (eschar on L toe) Extremities: edema, pitting pedal edema, + right femoral Guanako Catheter 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: lethargic, non focal Medications Medications Current Medications Albuterol/ Ipratropium (Duoneb) 3 ml Q6HWA RESP THERAPY HHN Last administered on 12/04/18at 13:51; Admin Dose 3 ML; Start 11/26/18 at 08:00 Acetaminophen (Tylenol Tab) 500 mg Q6H PRN PO MILD PAIN(1-3)OR ELEVATED TEMP Last administered on 12/03/18at 12:15; Admin Dose 500 MG; Start 11/25/18 at 22:30 Albumin Human 50 ml @ 100 mls/hr WITH DIALYSIS PRN IV SBP lower than 90 mm Hg ; Start 11/26/18 at 14:00 Sodium Chloride (NS) -To prime the dialy... DIRECTED FOR HD PRN IV SBP lower than 90 mm Hg ; Start 11/26/18 at 14:00 IV Flush (NS 10 ml) 10 ml PRN PRN IV IV PROTOCOL; Start 11/26/18 at 14:30 Hydralazine HCl (Apresoline) 20 mg Q6H PRN IV SBP > 160 Last administered on 11/29/18at 12:33; Admin Dose 20 MG; Start 11/28/18 at 07:00 Albuterol/ Ipratropium (Duoneb) 3 ml Q4H RESP THERAPY PRN HHN SHORTNESS OF BREATH Last administered on 12/02/18at 03:49; Admin Dose 3 ML; Start 11/29/18 at 01:00 Nifedipine (Procardia Xl) 60 mg BID PO Last administered on 12/03/18at 20:38; Admin Dose 60 MG; Start 11/29/18 at 14:00 Metoprolol Tartrate (Lopressor) 25 mg BID PO Last administered on 12/02/18at 20:34; Admin Dose 25 MG; Start 11/30/18 at 21:00 Metoprolol Tartrate (Lopressor) 5 mg Q4H PRN IV HR>110 Hold SBP<100; Start 11/30/18 at 12:30 Heparin Sodium (Porcine) (Heparin (1000 Units/ml)) 2,800 unit AFTER DIALYSIS CATHETER Last administered on 12/01/18at 13:08; Admin Dose 2,800 UNIT; Start 12/01/18 at 11:30 Levothyroxine Sodium (Synthroid Iv) 100 mcg DAILY@06 IV Last administered on 12/04/18at 05:26; Admin Dose 100 MCG; Start 12/02/18 at 06:00 Haloperidol (Haldol) 2 mg Q6H PRN IV hallucinations Last administered on 12/02/18at 03:21; Admin Dose 2 MG; Start 12/01/18 at 19:30 Pantoprazole (Protonix Iv) 40 mg BID IV Last administered on 12/04/18at 09:36; Admin Dose 40 MG; Start 12/04/18 at 06:00 Bisacodyl (Dulcolax) 10 mg ONCE ONCE PO ; Start 12/06/18 at 17:00; Stop 12/06/18 at 17:01 Polyethylene Glycol/ Electrolytes (Golytely) 2,000 ml ONCE ONCE PO ; Start 12/06/18 at 17:00; Stop 12/06/18 at 17:01 Polyethylene Glycol/ Electrolytes (Golytely) 2,000 ml 2nd Dose (GI Prep) ONCE PO ; Start 12/04/18 at 20:00; Stop 12/04/18 at 20:01 Bisacodyl (Dulcolax) 10 mg 2nd Dose (GI Prep) ONCE PO ; Start 12/04/18 at 20:00; Stop 12/04/18 at 20:01 GI HARTMAN MD Dec 04, 2018 14:03
--- NOTE | 2018-12-04 14:35 | PN ---
Date/Time of Note Date/Time of Note DATE: 12/04/18 TIME: 14:34 Assessment/Plan VTE Prophylaxis Risk score (from [facility] [place]0 risk: 11 SCD applied (from [facility] [place]): No SCD contraindicated: other Pharmacological prophylaxis: other Pharm contraindication: other Lines/Catheters [facility] Type (from [facility] PICC Line Central line still needed: Yes Urinary Cath still in place: Yes Reason Cath still needed: urinary retention Assessment/Plan Result Diagram: 12/04/18 1152 12/04/18 0525 Results 24hrs Laboratory Tests Test 12/04/18 05:25 12/04/18 11:52 White Blood Count 14.9 H Red Blood Count 2.06 L Hemoglobin 6.3 *L 6.5 *L Hematocrit 19.1 L 19.4 L Mean Corpuscular Volume 92.7 Mean Corpuscular Hemoglobin 30.6 Mean Corpuscular Hemoglobin Concent 33.0 Red Cell Distribution Width 15.9 H Platelet Count 134 #L Mean Platelet Volume 11.0 H Immature Granulocytes % 1.500 H Neutrophils % 90.8 H Lymphocytes % 4.4 L Monocytes % 2.6 Eosinophils % 0.6 Basophils % 0.1 Nucleated Red Blood Cells % 0.0 Immature Granulocytes # 0.220 H Neutrophils # 13.5 H Lymphocytes # 0.7 L Monocytes # 0.4 Eosinophils # 0.1 Basophils # 0.0 Nucleated Red Blood Cells # 0.0 Sodium Level 139 Potassium Level 3.4 L Chloride Level 105 Carbon Dioxide Level 24 Anion Gap 10 Blood Urea Nitrogen 108 H Creatinine 3.86 H Est Glomerular Filtrat Rate mL/min Glucose Level 157 Calcium Level 8.2 L Subjective 24 Hr Interval Summary Free Text/Dictation Plan for Mic . Dr Malone want blood transfusion with HD . EGD/Colonoscopy on Friday Exam/Review of Systems Vital Signs Vitals Vital Signs Date Temp Pulse Resp B/P (MAP) Pulse Ox O2 O2 Flow FiO2 Time Delivery Rate 12/04/18 4.0 13:57 12/04/18 104 20 92 Nasal 13:55 Cannula 12/04/18 98.9 131/58 11:21 (82) 12/02/18 40 03:59 Intake and Output 12/03/18 12/03/18 12/04/18 1515:00 23:00 07:00 IntakeIntake Total 480 ml 250 ml OutputOutput Total 325 ml 350 ml BalanceBalance 155 ml -100 ml Medications Medications Current Medications Albuterol/ Ipratropium (Duoneb) 3 ml Q6HWA RESP THERAPY HHN Last administered on 12/04/18 13:51; Admin Dose 3 ML; Start 11/26/18 at 08:00 Acetaminophen (Tylenol Tab) 500 mg Q6H PRN PO MILD PAIN(1-3)OR ELEVATED TEMP Last administered on 12/03/18 12:15; Admin Dose 500 MG; Start 11/25/18 at 22:30 Albumin Human 50 ml @ 100 mls/hr WITH DIALYSIS PRN IV SBP lower than 90 mm Hg ; Start 11/26/18 at 14:00 Sodium Chloride (NS) -To prime the dialy... DIRECTED FOR HD PRN IV SBP lower than 90 mm Hg ; Start 11/26/18 at 14:00 IV Flush (NS 10 ml) 10 ml PRN PRN IV IV PROTOCOL; Start 11/26/18 at 14:30 Hydralazine HCl (Apresoline) 20 mg Q6H PRN IV SBP > 160 Last administered on 11/29/18 12:33; Admin Dose 20 MG; Start 11/28/18 at 07:00 Albuterol/ Ipratropium (Duoneb) 3 ml Q4H RESP THERAPY PRN HHN SHORTNESS OF BREATH Last administered on 12/02/18 03:49; Admin Dose 3 ML; Start 11/29/18 at 01:00 Nifedipine (Procardia Xl) 60 mg BID PO Last administered on 12/03/18 20:38; Admin Dose 60 MG; Start 11/29/18 at 14:00 Metoprolol Tartrate (Lopressor) 25 mg BID PO Last administered on 12/02/18 20:34; Admin Dose 25 MG; Start 11/30/18 at 21:00 Metoprolol Tartrate (Lopressor) 5 mg Q4H PRN IV HR>110 Hold SBP<100; Start 11/30/18 at 12:30 Heparin Sodium (Porcine) (Heparin (1000 Units/ml)) 2,800 unit AFTER DIALYSIS CATHETER Last administered on 12/01/18 13:08; Admin Dose 2,800 UNIT; Start 12/01/18 at 11:30 Levothyroxine Sodium (Synthroid Iv) 100 mcg DAILY@06 IV Last administered on 12/04/18at 05:26; Admin Dose 100 MCG; Start 12/02/18 at 06:00 Haloperidol (Haldol) 2 mg Q6H PRN IV hallucinations Last administered on 12/02/18at 03:21; Admin Dose 2 MG; Start 12/01/18 at 19:30 Pantoprazole (Protonix Iv) 40 mg BID IV Last administered on 12/04/18at 09:36; Admin Dose 40 MG; Start 12/04/18 at 06:00 Bisacodyl (Dulcolax) 10 mg ONCE ONCE PO ; Start 12/06/18 at 17:00; Stop 12/06/18 at 17:01 Polyethylene Glycol/ Electrolytes (Golytely) 2,000 ml ONCE ONCE PO ; Start at 17:00; Stop 12/06/18 at 17:01 Polyethylene Glycol/ Electrolytes (Golytely) 2,000 ml 2nd Dose (GI Prep) ONCE PO ; Start 12/04/18 at 20:00; Stop 12/04/18 at 20:01 Bisacodyl (Dulcolax) 10 mg 2nd Dose (GI Prep) ONCE PO ; Start 12/04/18 at 20:00; Stop 12/04/18 at 20:01 KATIE MENDEZ Dec 04, 2018 14:35
[2018-12-04] MEDS ORDERED: POTASSIUM CHLORIDE (SR) 20 MEQ TAB PO STA (17:02)
--- NOTE | 2018-12-04 17:03 | CONS ---
Date/Time of Note Date/Time of Note DATE: 12/04/18 TIME: 16:57 Assessment/Plan Assessment/Plan Assessment/Plan 1. BP stable with previously preserved EF by most recent echo September 2018 of 60% to 65%.-improved off dopamine 2. Abnormal echocardiogram. 3. Congestive heart failure, diastolic, acute on chronic, in the setting of renal failure. 4. Renal failure. 5. Anemia, status post transfusions. 6. Hypokalemia: added KCl today. 7. Urinary tract infection. 8. Tachycardia-c/w PAF/AFL with RVR 9. Bradycardia- to 40's when converts to SR REcc: -Now on tele -follow BP closely on procardia XL and low dose BB as tolerated only -Follow volume status clsoely -Follow for recurrent significant bradycardia Result Diagram: 12/04/18 1152 12/04/18 0525 Results 24hrs Laboratory Tests Test 12/04/18 05:25 12/04/18 11:52 White Blood Count 14.9 H Red Blood Count 2.06 L Hemoglobin 6.3 *L 6.5 *L Hematocrit 19.1 L 19.4 L Mean Corpuscular Volume 92.7 Mean Corpuscular Hemoglobin 30.6 Mean Corpuscular Hemoglobin Concent 33.0 Red Cell Distribution Width 15.9 H Platelet Count 134 #L Mean Platelet Volume 11.0 H Immature Granulocytes % 1.500 H Neutrophils % 90.8 H Lymphocytes % 4.4 L Monocytes % 2.6 Eosinophils % 0.6 Basophils % 0.1 Nucleated Red Blood Cells % 0.0 Immature Granulocytes # 0.220 H Neutrophils # 13.5 H Lymphocytes # 0.7 L Monocytes # 0.4 Eosinophils # 0.1 Basophils # 0.0 Nucleated Red Blood Cells # 0.0 Sodium Level 139 Potassium Level 3.4 L Chloride Level 105 Carbon Dioxide Level 24 Anion Gap 10 Blood Urea Nitrogen 108 H Creatinine 3.86 H Est Glomerular Filtrat Rate mL/min Glucose Level 157 Calcium Level 8.2 L Consultation Date/Type/Reason Admit Date/Time Nov 26, 2018 at 11:28 Initial Consult Date 11/27/18 Requesting Provider: KATIE MENDEZ 24 HR Interval Summary Free Text/Dictation ROS: No fever, no chills, no nausea, no vomiting, no diarrhea/constipation No recent weight changes No edema, no palpitations No chest pain, no PND, no SOB No dizziness, blurred vision No thirst, no heat or cold intolerance Had dialysis cath replaced today in the left groin Exam/Review of Systems Vital Signs Vitals Vital Signs Date Temp Pulse Resp B/P (MAP) Pulse Ox O2 O2 Flow FiO2 Time Delivery Rate 12/04/18 112 16:34 12/04/18 99.1 19 113/51 93 15:57 (71) 12/04/18 4.0 13:57 12/04/18 Nasal 13:55 Cannula 12/02/18 40 03:59 Intake and Output 12/03/18 12/03/18 12/04/18 1515:00 23:00 07:00 IntakeIntake Total 480 ml 250 ml OutputOutput Total 325 ml 350 ml BalanceBalance 155 ml -100 ml Exam General: WN/WD HEENT: Unicetric/atraumatic/ no assymetry NECK: JVD not elevated, no thyromegaly, carotids revealed normal upstrokes Lymph: no lymphadenopathy HEART: regular with no S3, I/ systolic murmur at apex LUNGS: clear ABD: soft, NT, ND, +BS, no organomegaly Neuro: no deficit SKIN: no leisons EXT: no edema Medications Medications Current Medications Albuterol/ Ipratropium (Duoneb) 3 ml Q6HWA RESP THERAPY HHN Last administered on 12/04/18at 13:51; Admin Dose 3 ML; Start 11/26/18 at 08:00 Acetaminophen (Tylenol Tab) 500 mg Q6H PRN PO MILD PAIN(1-3)OR ELEVATED TEMP Last administered on 12/03/18at 12:15; Admin Dose 500 MG; Start 11/25/18 at 22:30 Albumin Human 50 ml @ 100 mls/hr WITH DIALYSIS PRN IV SBP lower than 90 mm Hg ; Start 11/26/18 at 14:00 Sodium Chloride (NS) -To prime the dialy... DIRECTED FOR HD PRN IV SBP lower than 90 mm Hg ; Start 11/26/18 at 14:00 IV Flush (NS 10 ml) 10 ml PRN PRN IV IV PROTOCOL; Start 11/26/18 at 14:30 Hydralazine HCl (Apresoline) 20 mg Q6H PRN IV SBP > 160 Last administered on 11/29/18at 12:33; Admin Dose 20 MG; Start 11/28/18 at 07:00 Albuterol/ Ipratropium (Duoneb) 3 ml Q4H RESP THERAPY PRN HHN SHORTNESS OF BREATH Last administered on 12/02/18 03:49; Admin Dose 3 ML; Start 11/29/18 at 01:00 Nifedipine (Procardia Xl) 60 mg BID PO Last administered on 12/03/18 20:38; Admin Dose 60 MG; Start 11/29/18 at 14:00 Metoprolol Tartrate (Lopressor) 25 mg BID PO Last administered on 12/02/18 20 :34; Admin Dose 25 MG; Start 11/30/18 at 21:00 Metoprolol Tartrate (Lopressor) 5 mg Q4H PRN IV HR>110 Hold SBP<100; Start 11/30/18 at 12:30 Heparin Sodium (Porcine) (Heparin (1000 Units/ml)) 2,800 unit AFTER DIALYSIS CATHETER Last administered on 12/01/18 13:08; Admin Dose 2,800 UNIT; Start 12/01/18 at 11:30 Levothyroxine Sodium (Synthroid Iv) 100 mcg DAILY@06 IV Last administered on 12/04/18 05:26; Admin Dose 100 MCG; Start 12/02/18 at 06:00 Haloperidol (Haldol) 2 mg Q6H PRN IV hallucinations Last administered on 12/02/18 03:21; Admin Dose 2 MG; Start 12/01/18 at 19:30 Pantoprazole (Protonix Iv) 40 mg BID IV Last administered on 12/04/18at 09:36; Admin Dose 40 MG; Start 12/04/18 at 06:00 Bisacodyl (Dulcolax) 10 mg ONCE ONCE PO ; Start 12/06/18 at 17:00; Stop 12/06/18 at 17:01 Polyethylene Glycol/ Electrolytes (Golytely) 2,000 ml ONCE ONCE PO ; Start 12/06/18 at 17:00; Stop 12/06/18 at 17:01 JENNIFER MCCLENDON MD Dec 04, 2018 17:03
--- NOTE | 2018-12-04 19:25 | OPR ---
DATE OF OPERATION: PREOPERATIVE DIAGNOSIS: Renal failure. POSTOPERATIVE DIAGNOSIS: Renal failure. PROCEDURE: Left femoral hemodialysis catheter placement. SURGEON: Sterling Olson MD ANESTHESIA: Local. CONSENT: Risks, benefits, complications, alternative therapies were explained to the patient. Conse nt was obtained. OPERATIVE TECHNIQUE: The patient was placed in supine position, prepped and draped in usual sterile fashion. A 1% lidocaine was used throughout the operation for local anesthesia. Access was gained i n the left common femoral vein. Guidewire was advanced through without any difficulty. Subcutaneous tissues were dilated. A 20 cm dialysis catheter was advanced over guidewire, secured to skin using silk sutures. Both ports of the catheter were aspirated and injected using saline solution. The pat ient tolerated procedure well. Dictated By: STERLING OLSON MD FM/NTS Conf#: [id number] DID#: [id number] CC: LOREN ROSE MD; RICHARD MOBLEY MD;*EndCC*
[2018-12-04] MEDS ORDERED: BISACODYL (EC) 5 MG TAB PO ONE (20:00)
[2018-12-04] MEDS ORDERED: PEG/ELECTROLYTES 4L BTL PO ONE (20:00)
[2018-12-05] VITALS (28 sets, daily range): BP systolic 92–135; BP diastolic 44–58; PULSE 64–99; RESP 19–20
[2018-12-05] MEDS: HEPARIN 1000 UNITS/ML 10 ML INJ CATHETER SCH ×2 (01:27→13:24)
[2018-12-05] MEDS: LEVOTHYROXINE 100 MCG VIAL IV SCH (05:32)
[2018-12-05] MEDS: PANTOPRAZOLE 40 MG INJ IV SCH ×2 (08:30→20:26)
[2018-12-05] MEDS: METOPROLOL 25 MG TAB PO SCH ×2 (08:32→20:31)
[2018-12-05] MEDS: NIFEdipine (XL) 60 MG TAB PO SCH (08:32)
[2018-12-05] MEDS: ALBUTEROL/IPRATROPIUM (NEB) 3 ML AMP HHN SCH ×3 (08:34→20:04)
--- NOTE | 2018-12-05 11:02 | PN ---
Date/Time of Note Date/Time of Note DATE: 12/05/18 TIME: 11:01 Assessment/Plan VTE Prophylaxis Risk score (from [facility])>0 risk: 4 SCD applied (from [facility]): No SCD contraindicated: other Pharmacological prophylaxis: NA/contraindicated Pharm contraindication: bleeding Lines/Catheters [facility] aron Urinary Cath still in place: Yes Reason Cath still needed: skin wounds contaminated by urine Assessment/Plan Hospital Course -Anemia secondary to GI bleed. Protonix IV. Heparin is stopped. Transfuse as needed. Dr. Lewis is asked to see patient in gastroenterology consultation. -Acute respiratory failure. Dr. Garcia is following in pulmonology consultation. -Sepsis secondary to UTI. Continue antibiotics per ID. Dr. Jordan is following in infection disease consultation. -S/p septic and cardiogenic shock -Left lower lobe pneumonia -Acute on chronic systolic and diastolic congestive heart failure. Dr. Iraheta is following in cardiology consultation. -ARF on CKD. Patient started on hemodialysis during this admission. Continue hemodialysis per nephrology. Dr Hill is following in nephrology consultation. -Pulmonary edema -Hypothyroidism, continue Synthroid. -DNR status Result Diagram: 12/05/18 0516 12/05/18 0516 Results 24hrs Laboratory Tests Test 12/04/18 11:52 12/04/18 18:25 12/05/18 05:16 Hemoglobin 6.5 *L 6.0 *L 9.4 #L Hematocrit 19.4 L 18.4 L 27.7 #L White Blood Count 13.9 H Red Blood Count 3.19 #L Mean Corpuscular Volume 86.8 Mean Corpuscular Hemoglobin 29.5 Mean Corpuscular Hemoglobin Concent 33.9 Red Cell Distribution Width 15.9 H Platelet Count 134 L Mean Platelet Volume 11.3 H Immature Granulocytes % 1.200 H Neutrophils % 85.2 H Lymphocytes % 5.2 L Monocytes % 7.8 Eosinophils % 0.5 Basophils % 0.1 Nucleated Red Blood Cells % 0.0 Immature Granulocytes # 0.170 H Neutrophils # 11.9 H Lymphocytes # 0.7 L Monocytes # 1.1 H Eosinophils # 0.1 Basophils # 0.0 Nucleated Red Blood Cells # 0.0 Sodium Level 138 Potassium Level 3.3 L Chloride Level 102 Carbon Dioxide Level 27 Anion Gap 9 Blood Urea Nitrogen 58 #H Creatinine 3.00 H Est Glomerular Filtrat Rate mL/min Glucose Level 166 Calcium Level 8.4 Subjective 24 Hr Interval Summary Free Text/Dictation Patient has no complaints, currently receiving hemodialysis Exam/Review of Systems Vital Signs Vitals Vital Signs Date Temp Pulse Resp B/P (MAP) Pulse Ox O2 O2 Flow FiO2 Time Delivery Rate 12/05/18 80 09:05 12/05/18 18 98 Nasal 2.0 08:44 Cannula 12/05/18 98.9 116/58 07:37 (77) 12/02/18 40 03:59 Intake and Output 12/04/18 12/04/18 12/05/18 1414:59 22:59 06:59 IntakeIntake Total 300 ml 360 ml OutputOutput Total 200 ml 4150 ml BalanceBalance 100 ml -3790 ml Exam Constitutional: well developed Head: normocephalic, atraumatic Neck: supple Respiratory: diminished breath sounds Cardiovascular: regular rate and rhythm Gastrointestinal: soft, non-tender Extremities: normal pulses Medications Medications Current Medications Albuterol/ Ipratropium (Duoneb) 3 ml Q6HWA RESP THERAPY HHN Last administered on 12/05/18at 08:34; Admin Dose 3 ML; Start 11/26/18 at 08:00 Acetaminophen (Tylenol Tab) 500 mg Q6H PRN PO MILD PAIN(1-3)OR ELEVATED TEMP Last administered on 12/03/18at 12:15; Admin Dose 500 MG; Start 11/25/18 at 22:30 Albumin Human 50 ml @ 100 mls/hr WITH DIALYSIS PRN IV SBP lower than 90 mm Hg ; Start 11/26/18 at 14:00 Sodium Chloride (NS) -To prime the dialy... DIRECTED FOR HD PRN IV SBP lower than 90 mm Hg ; Start 11/26/18 at 14:00 IV Flush (NS 10 ml) 10 ml PRN PRN IV IV PROTOCOL; Start 11/26/18 at 14:30 Hydralazine HCl (Apresoline) 20 mg Q6H PRN IV SBP > 160 Last administered on 11/29/18at 12:33; Admin Dose 20 MG; Start 11/28/18 at 07:00 Albuterol/ Ipratropium (Duoneb) 3 ml Q4H RESP THERAPY PRN HHN SHORTNESS OF BREATH Last administered on 12/02/18 03:49; Admin Dose 3 ML; Start 11/29/18 at 01:00 Nifedipine (Procardia Xl) 60 mg BID PO Last administered on 12/03/18 20:38; Admin Dose 60 MG; Start 11/29/18 at 14:00 Metoprolol Tartrate (Lopressor) 25 mg BID PO Last administered on 12/02/18 20:34; Admin Dose 25 MG; Start 11/30/18 at 21:00 Metoprolol Tartrate (Lopressor) 5 mg Q4H PRN IV HR>110 Hold SBP<100; Start 11/30/18 at 12:30 Heparin Sodium (Porcine) (Heparin (1000 Units/ml)) 2,800 unit AFTER DIALYSIS CATHETER Last administered on 12/05/18 01:27; Admin Dose 2,800 UNIT; Start 12/01/18 at 11:30 Levothyroxine Sodium (Synthroid Iv) 100 mcg DAILY@06 IV Last administered on 12/05/18 05:32; Admin Dose 100 MCG; Start 12/02/18 at 06:00 Haloperidol (Haldol) 2 mg Q6H PRN IV hallucinations Last administered on 12/02/18 03:21; Admin Dose 2 MG; Start 12/01/18 at 19:30 Pantoprazole (Protonix Iv) 40 mg BID IV Last administered on 12/05/18 08:30; Admin Dose 40 MG; Start 12/04/18 at 06:00 Bisacodyl (Dulcolax) 10 mg ONCE ONCE PO ; Start 12/06/18 at 17:00; Stop 12/06/18 at 17:01 Polyethylene Glycol/ Electrolytes (Golytely) 2,000 ml ONCE ONCE PO ; Start 12/06/18 at 17:00; Stop 12/06/18 at 17:01 LAMONT BREWER Dec 05, 2018 11:02
[2018-12-05] MEDS ORDERED: ALBUMIN HUMAN 25% 100 ML IV STA (11:05)
--- NOTE | 2018-12-05 11:17 | CONS ---
Date/Time of Note Date/Time of Note DATE: 12/05/18 TIME: 11:16 Assessment/Plan Assessment/Plan Assessment/Plan 88 yo female presented with SOB, found to have septic and cardiogenic shock, stable on telemetry floor with acute drop in HH with positive FOB 1. Anemia -acute on chronic secondary to blood loss -pos FOB -hematochezia, no melena 2. Acute respiratory failure -improved -followed by Dr. Garcia 3. VRE in urine -pt was septic, stable now, ID following 4. S/P septic and cardiogenic shock 5. CKD III with acute renal failure -started on HD during this admission. -Dr Hill, nephrology 6. Acute on chronic diastolic CHF -Dr Iraheta from cardiology 7. Left lower lobe pneumonia 8. Hypothyroidism -management by primary 9. DNR status Plan: Patient currently is not having N/V or active bleeding from rectum. EGD and/or colonoscopy I spoke with [place] the daughter who consent to which ever procedure, EGD /colonoscopy, that is necessary. Shara, patient's RN, witnessed consent. No anticoagulants Monitor HH and replace as needed, q [address] Hill, nephrology has ordered 2 units to be given with HD Dr Cuevas will be placing Mic catheter at 1500 and pt will be receiving dialysis right afterward. PPI BID IV Cardiac clearance, patient's ejection fraction is good at 60-65% NPO Patient is scheduled for EGD and colonoscopy on Friday Result Diagram: 12/05/18 0516 12/05/18 0516 Results 24hrs Laboratory Tests Test 12/04/18 11:52 12/04/18 18:25 12/05/18 05:16 Hemoglobin 6.5 *L 6.0 *L 9.4 #L Hematocrit 19.4 L 18.4 L 27.7 #L White Blood Count 13.9 H Red Blood Count 3.19 #L Mean Corpuscular Volume 86.8 Mean Corpuscular Hemoglobin 29.5 Mean Corpuscular Hemoglobin Concent 33.9 Red Cell Distribution Width 15.9 H Platelet Count 134 L Mean Platelet Volume 11.3 H Immature Granulocytes % 1.200 H Neutrophils % 85.2 H Lymphocytes % 5.2 L Monocytes % 7.8 Eosinophils % 0.5 Basophils % 0.1 Nucleated Red Blood Cells % 0.0 Immature Granulocytes # 0.170 H Neutrophils # 11.9 H Lymphocytes # 0.7 L Monocytes # 1.1 H Eosinophils # 0.1 Basophils # 0.0 Nucleated Red Blood Cells # 0.0 Sodium Level 138 Potassium Level 3.3 L Chloride Level 102 Carbon Dioxide Level 27 Anion Gap 9 Blood Urea Nitrogen 58 #H Creatinine 3.00 H Est Glomerular Filtrat Rate mL/min Glucose Level 166 Calcium Level 8.4 Consultation Date/Type/Reason Admit Date/Time Nov 26, 2018 at 11:28 Initial Consult Date 11/27/18 Requesting Provider: KATIE MENDEZ 24 HR Interval Summary Constitutional: no complaints Exam/Review of Systems Vital Signs Vitals Vital Signs Date Temp Pulse Resp B/P (MAP) Pulse Ox O2 O2 Flow FiO2 Time Delivery Rate 12/05/18 80 09:05 12/05/18 18 98 Nasal 2.0 08:44 Cannula 12/05/18 98.9 116/58 07:37 (77) 12/02/18 40 03:59 Intake and Output 12/04/18 12/04/18 12/05/18 1515:00 23:00 07:00 IntakeIntake Total 300 ml 360 ml OutputOutput Total 200 ml 4150 ml BalanceBalance 100 ml -3790 ml Exam Constitutional: alert, oriented, well developed Psych: no complaints, nl mood/affect Head: normocephalic, atraumatic Eyes: nl conjunctiva, EOMI, nl lids, nl sclera, PERRL ENMT: nl external ears & nose, nl lips & teeth, nl nasal mucosa & septum Neck: supple, non-tender Respiratory: clear to auscultation, normal air movement Cardiovascular: regular rate and rhythm, nl pulses Gastrointestinal: soft, nl liver, spleen, non-tender Musculoskeletal: nl extremities to inspection, nl gait and stance Extremities: normal pulses 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: LINER CHECKER II-XII intact, nl mental status, nl speech, nl strength Skin: nl turgor; No rash or lesions Lymph: nl lymph nodes Medications Medications Current Medications Albuterol/ Ipratropium (Duoneb) 3 ml Q6HWA RESP THERAPY HHN Last administered on 12/05/18at 08:34; Admin Dose 3 ML; Start 11/26/18 at 08:00 Acetaminophen (Tylenol Tab) 500 mg Q6H PRN PO MILD PAIN(1-3)OR ELEVATED TEMP Last administered on 12/03/18 12:15; Admin Dose 500 MG; Start 11/25/18 at 22:30 Albumin Human 50 ml @ 100 mls/hr WITH DIALYSIS PRN IV SBP lower than 90 mm Hg ; Start 11/26/18 at 14:00 Sodium Chloride (NS) -To prime the dialy... DIRECTED FOR HD PRN IV SBP lower than 90 mm Hg ; Start 11/26/18 at 14:00 IV Flush (NS 10 ml) 10 ml PRN PRN IV IV PROTOCOL; Start 11/26/18 at 14:30 Hydralazine HCl (Apresoline) 20 mg Q6H PRN IV SBP > 160 Last administered on 11/29/18 12:33; Admin Dose 20 MG; Start 11/28/18 at 07:00 Albuterol/ Ipratropium (Duoneb) 3 ml Q4H RESP THERAPY PRN HHN SHORTNESS OF BREATH Last administered on 12/02/18 03:49; Admin Dose 3 ML; Start 11/29/18 at 01:00 Nifedipine (Procardia Xl) 60 mg BID PO Last administered on 12/03/18 20:38; Admin Dose 60 MG; Start 11/29/18 at 14:00 Metoprolol Tartrate (Lopressor) 25 mg BID PO Last administered on 12/02/18 20:34; Admin Dose 25 MG; Start 11/30/18 at 21:00 Metoprolol Tartrate (Lopressor) 5 mg Q4H PRN IV HR>110 Hold SBP<100; Start 11/30/18 at 12:30 Heparin Sodium (Porcine) (Heparin (1000 Units/ml)) 2,800 unit AFTER DIALYSIS CATHETER Last administered on 12/05/18 01:27; Admin Dose 2,800 UNIT; Start 12/01/18 at 11:30 Levothyroxine Sodium (Synthroid Iv) 100 mcg DAILY@06 IV Last administered on 12/05/18 05:32; Admin Dose 100 MCG; Start 12/02/18 at 06:00 Haloperidol (Haldol) 2 mg Q6H PRN IV hallucinations Last administered on 12/02/18 03:21; Admin Dose 2 MG; Start 12/01/18 at 19:30 Pantoprazole (Protonix Iv) 40 mg BID IV Last administered on 12/05/18at 08:30; Admin Dose 40 MG; Start 12/04/18 at 06:00 Bisacodyl (Dulcolax) 10 mg ONCE ONCE PO ; Start 12/06/18 at 17:00; Stop 9 at 17:01 Polyethylene Glycol/ Electrolytes (Golytely) 2,000 ml ONCE ONCE PO ; Start 12/06/18 at 17:00; Stop 12/06/18 at 17:01 LUCILA JACKSON MD Dec 05, 2018 11:17
[2018-12-05] MEDS: ALBUMIN HUMAN 25% 50 ML IV PRN (12:07)
--- NOTE | 2018-12-05 12:58 | CONS ---
Date/Time of Note Date/Time of Note DATE: 12/05/18 TIME: 12:56 Assessment/Plan Assessment/Plan Assessment/Plan - Hypokalemia- K is adjusted during HD per Dialysis nurse; monitor am lab 1. Oliguric Acute kindey injury on CKD III due to ATN from septic shock, 2. Acute uremic encephalopathy 3. Acute hyperkalemia- resolved 4. Severe metabolic acidosis 5. Septic shock on pressors 2/2 UTI and bacteremia 6. acute hypoxemic respiraotry failure on BIPAP 7. acute on chronic,systolic and diastolic heart failure 8. H/o HTN 9. H/o COPD Plan: started on HD on 11/26/17 Gu[place] catheter did not work well, s/p Removal and placement of new guanako, Hb was low- plan for HD yesterday with 2 units PRBC Extra HD TODAY IV abx as per PMD, renally dose all abx and monitor electrolytes will follow up Patient seen in collaboration with Dr Hilda kumar Result Diagram: 12/05/18 0516 12/05/18 0516 Results 24hrs Laboratory Tests Test 12/04/18 18:25 12/05/18 05:16 Hemoglobin 6.0 *L 9.4 #L Hematocrit 18.4 L 27.7 #L White Blood Count 13.9 H Red Blood Count 3.19 #L Mean Corpuscular Volume 86.8 Mean Corpuscular Hemoglobin 29.5 Mean Corpuscular Hemoglobin Concent 33.9 Red Cell Distribution Width 15.9 H Platelet Count 134 L Mean Platelet Volume 11.3 H Immature Granulocytes % 1.200 H Neutrophils % 85.2 H Lymphocytes % 5.2 L Monocytes % 7.8 Eosinophils % 0.5 Basophils % 0.1 Nucleated Red Blood Cells % 0.0 Immature Granulocytes # 0.170 H Neutrophils # 11.9 H Lymphocytes # 0.7 L Monocytes # 1.1 H Eosinophils # 0.1 Basophils # 0.0 Nucleated Red Blood Cells # 0.0 Sodium Level 138 Potassium Level 3.3 L Chloride Level 102 Carbon Dioxide Level 27 Anion Gap 9 Blood Urea Nitrogen 58 #H Creatinine 3.00 H Est Glomerular Filtrat Rate mL/min Glucose Level 166 Calcium Level 8.4 Consultation Date/Type/Reason Admit Date/Time Nov 26, 2018 at 11:28 Initial Consult Date 11/27/18 Requesting Provider: SADEORA,KATIE 24 HR Interval Summary Free Text/Dictation - nad - getting HD now - right /left HD cat noted but left one is patent to be used - no new issues reported last night Constitutional: requiring IVF Detailed Summary Eyes: no complaints ENT: no complaints Respiratory: no complaints Cardiovascular: no complaints Gastrointestinal: no complaints Exam/Review of Systems Vital Signs Vitals Vital Signs Date Temp Pulse Resp B/P (MAP) Pulse Ox O2 O2 Flow FiO2 Time Delivery Rate 12/05/18 82 20 116/58 98 Nasal 3.0 10:10 (77) Cannula 12/05/18 98.9 07:37 12/02/18 40 03:59 Intake and Output 12/04/18 12/04/18 12/05/18 1515:00 23:00 07:00 IntakeIntake Total 300 ml 360 ml OutputOutput Total 200 ml 4150 ml BalanceBalance 100 ml -3790 ml Exam Constitutional: alert, well developed, obese Psych: nl mood/affect Head: atraumatic Eyes: EOMI, nl lids, nl sclera ENMT: nl external ears & nose Neck: non-tender Respiratory: diminished breath sounds (at bases) Cardiovascular: nl pulses, other (s1s2) Gastrointestinal: soft, non-tender Musculoskeletal: muscle weakness Extremities: normal pulses 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: nl speech, other (alert/responsiive) Skin: nl turgor Lymph: nontender Medications Medications Current Medications Albuterol/ Ipratropium (Duoneb) 3 ml Q6HWA RESP THERAPY HHN Last administered on 12/05/18at 08:34; Admin Dose 3 ML; Start 11/26/18 at 08:00 Acetaminophen (Tylenol Tab) 500 mg Q6H PRN PO MILD PAIN(1-3)OR ELEVATED TEMP Last administered on 12/03/18at 12:15; Admin Dose 500 MG; Start 11/25/18 at 22:30 Albumin Human 50 ml @ 100 mls/hr WITH DIALYSIS PRN IV SBP lower than 90 mm Hg Last administered on 12/05/18at 12:07; Admin Dose 100 MLS/HR; Start 11/26/18 at 14:00 Sodium Chloride (NS) -To prime the dialy... DIRECTED FOR HD PRN IV SBP lower than 90 mm Hg ; Start 11/26/18 at 14:00 IV Flush (NS 10 ml) 10 ml PRN PRN IV IV PROTOCOL; Start 11/26/18 at 14:30 Hydralazine HCl (Apresoline) 20 mg Q6H PRN IV SBP > 160 Last administered on 11/29/18 12:33; Admin Dose 20 MG; Start 11/28/18 at 07:00 Albuterol/ Ipratropium (Duoneb) 3 ml Q4H RESP THERAPY PRN HHN SHORTNESS OF BREATH Last administered on 12/02/18 03:49; Admin Dose 3 ML; Start 11/29/18 at 01:00 Nifedipine (Procardia Xl) 60 mg BID PO Last administered on 12/03/18 20:38; Admin Dose 60 MG; Start 11/29/18 at 14:00 Metoprolol Tartrate (Lopressor) 25 mg BID PO Last administered on 12/02/18 20:34; Admin Dose 25 MG; Start 11/30/18 at 21:00 Metoprolol Tartrate (Lopressor) 5 mg Q4H PRN IV HR>110 Hold SBP<100; Start 11/30/18 at 12:30 Heparin Sodium (Porcine) (Heparin (1000 Units/ml)) 2,800 unit AFTER DIALYSIS CATHETER Last administered on 12/05/18 01:27; Admin Dose 2,800 UNIT; Start 12/01/18 at 11:30 Levothyroxine Sodium (Synthroid Iv) 100 mcg DAILY@06 IV Last administered on 05:32; Admin Dose 100 MCG; Start 12/02/18 at 06:00 Haloperidol (Haldol) 2 mg Q6H PRN IV hallucinations Last administered on 12/02/18 03:21; Admin Dose 2 MG; Start 12/01/18 at 19:30 Pantoprazole (Protonix Iv) 40 mg BID IV Last administered on 12/05/18 08:30; Admin Dose 40 MG; Start 12/04/18 at 06:00 Bisacodyl (Dulcolax) 10 mg ONCE ONCE PO ; Start 12/06/18 at 17:00; Stop 12/06/18 at 17:01 Polyethylene Glycol/ Electrolytes (Golytely) 2,000 ml ONCE ONCE PO ; Start 12/06/18 at 17:00; Stop 12/06/18 at 17:01 KATIE MENDEZ Dec 05, 2018 12:58
--- NOTE | 2018-12-05 14:28 | CONS ---
Date/Time of Note Date/Time of Note DATE: 12/05/18 TIME: 14:25 Assessment/Plan Assessment/Plan Hospital Course IMPRESSION: 1. Shock, on dopamine pressor support at this time with previously preserved EF by most recent echo September 2018 of 60% to 65%.-improved off dopamine and tolerating BP medications 2. Abnormal echocardiogram, assess for acute coronary syndrome. 3. Congestive heart failure, diastolic, acute on chronic, in the setting of renal failure. 4. Renal failure now on HD 5. Anemia-requiring transfusions 6. Hyponatremia-improved 7. Urinary tract infection. 8. Tachycardia-c/w AF/AFL with RVR 9. Bradycardia- to 40's when converts to SR REcc: -Now on tele -follow BP closely on procardia XL and low dose BB as tolerated only -Continue abx's and f/u cx data -Follow volume status clsoely -Follow for recurrent significant bradycardia -Continue steroids/bronchodilators -HD for volume removal Result Diagram: 12/05/18 0516 12/05/18 0516 Results 24hrs Laboratory Tests Test 12/04/18 18:25 12/05/18 05:16 Hemoglobin 6.0 *L 9.4 #L Hematocrit 18.4 L 27.7 #L White Blood Count 13.9 H Red Blood Count 3.19 #L Mean Corpuscular Volume 86.8 Mean Corpuscular Hemoglobin 29.5 Mean Corpuscular Hemoglobin Concent 33.9 Red Cell Distribution Width 15.9 H Platelet Count 134 L Mean Platelet Volume 11.3 H Immature Granulocytes % 1.200 H Neutrophils % 85.2 H Lymphocytes % 5.2 L Monocytes % 7.8 Eosinophils % 0.5 Basophils % 0.1 Nucleated Red Blood Cells % 0.0 Immature Granulocytes # 0.170 H Neutrophils # 11.9 H Lymphocytes # 0.7 L Monocytes # 1.1 H Eosinophils # 0.1 Basophils # 0.0 Nucleated Red Blood Cells # 0.0 Sodium Level 138 Potassium Level 3.3 L Chloride Level 102 Carbon Dioxide Level 27 Anion Gap 9 Blood Urea Nitrogen 58 #H Creatinine 3.00 H Est Glomerular Filtrat Rate mL/min Glucose Level 166 Calcium Level 8.4 Consultation Date/Type/Reason Admit Date/Time Nov 26, 2018 at 11:28 Initial Consult Date 11/26/18 Type of Consult cardiology Reason for Consultation CHF Requesting Provider: KATIE MENDEZ Exam/Review of Systems Vital Signs Vitals Vital Signs Date Temp Pulse Resp B/P (MAP) Pulse Ox O2 O2 Flow FiO2 Time Delivery Rate 12/05/18 80 20 108/52 98 Nasal 2.0 13:48 (70) Cannula 12/05/18 98.9 07:37 12/02/18 40 03:59 Intake and Output 12/04/18 12/04/18 12/05/18 1515:00 23:00 07:00 IntakeIntake Total 300 ml 360 ml OutputOutput Total 200 ml 4150 ml BalanceBalance 100 ml -3790 ml Exam Review of Systems: CONSTITUTIONAL: No fevers, chills. PULMONARY: No sob CARDIOVASCULAR: No chest pain/palpitations GASTROINTESTINAL: No nausea/vomiting. GENITOURINARY: No hematuria/dysuria. MUSCULOSKELETAL: No myagias/arthalgias. PSYCHIATRIC: The patient denies depression. NEUROLOGIC: No weakness Constitutional: alert Psych: no complaints Head: normocephalic ENMT: mucosa pink and moist Neck: supple, jvd (9 cm water) Respiratory: diminished breath sounds (at bases/B) Cardiovascular: regular rate and rhythm Gastrointestinal: soft, non-tender Musculoskeletal: muscle weakness (generalized) Extremities: pitting pedal edema (bilateral) 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: lethargic Medications Medications Current Medications Albuterol/ Ipratropium (Duoneb) 3 ml Q6HWA RESP THERAPY HHN Last administered on 12/05/18at 13:32; Admin Dose 3 ML; Start 11/26/18 at 08:00 Acetaminophen (Tylenol Tab) 500 mg Q6H PRN PO MILD PAIN(1-3)OR ELEVATED TEMP Last administered on 12/03/18at 12:15; Admin Dose 500 MG; Start 11/25/18 at 22:30 Albumin Human 50 ml @ 100 mls/hr WITH DIALYSIS PRN IV SBP lower than 90 mm Hg Last administered on 12/05/18at 12:07; Admin Dose 100 MLS/HR; Start 11/26/18 at 14:00 Sodium Chloride (NS) -To prime the dialy... DIRECTED FOR HD PRN IV SBP lower than 90 mm Hg ; Start 11/26/18 at 14:00 IV Flush (NS 10 ml) 10 ml PRN PRN IV IV PROTOCOL; Start 11/26/18 at 14:30 Hydralazine HCl (Apresoline) 20 mg Q6H PRN IV SBP > 160 Last administered on 11/29/18 12:33; Admin Dose 20 MG; Start 11/28/18 at 07:00 Albuterol/ Ipratropium (Duoneb) 3 ml Q4H RESP THERAPY PRN HHN SHORTNESS OF BREATH Last administered on 12/02/18 03:49; Admin Dose 3 ML; Start 11/29/18 at 01:00 Nifedipine (Procardia Xl) 60 mg BID PO Last administered on 12/03/18 20:38; Admin Dose 60 MG; Start 11/29/18 at 14:00 Metoprolol Tartrate (Lopressor) 25 mg BID PO Last administered on 12/02/18 20:34; Admin Dose 25 MG; Start 11/30/18 at 21:00 Metoprolol Tartrate (Lopressor) 5 mg Q4H PRN IV HR>110 Hold SBP<100; Start 11/30/18 at 12:30 Heparin Sodium (Porcine) (Heparin (1000 Units/ml)) 2,800 unit AFTER DIALYSIS CATHETER Last administered on 12/05/18 13:24; Admin Dose 2,800 UNIT; Start 12/01/18 at 11:30 Levothyroxine Sodium (Synthroid Iv) 100 mcg DAILY@06 IV Last administered on 05:32; Admin Dose 100 MCG; Start 12/02/18 at 06:00 Haloperidol (Haldol) 2 mg Q6H PRN IV hallucinations Last administered on 12/02/18 03:21; Admin Dose 2 MG; Start 12/01/18 at 19:30 Pantoprazole (Protonix Iv) 40 mg BID IV Last administered on 12/05/18 08:30; Admin Dose 40 MG; Start 12/04/18 at 06:00 Bisacodyl (Dulcolax) 10 mg ONCE ONCE PO ; Start 12/06/18 at 17:00; Stop 12/06/18 at 17:01 Polyethylene Glycol/ Electrolytes (Golytely) 2,000 ml ONCE ONCE PO ; Start 12/06/18 at 17:00; Stop 12/06/18 at 17:01 ALVINA GARCIA Dec 05, 2018 14:28
[2018-12-05] MEDS: NIFEdipine (XL) 30 MG TAB PO SCH (20:30)
--- NOTE | 2018-12-05 21:49 | CONS ---
Date/Time of Note Date/Time of Note DATE: 12/05/18 TIME: 21:49 Assessment/Plan Assessment/Plan Hospital Course Assessment/Impression: - leukocytosis on 12/05/2018 may reflect receipt of pRBC x2 units - leukocytosis prior to that was likely due to steroid 11/25/2018-12/01/2018 - sepsis due to UTI possibly bacteremia although the latter could be a contaminant - UTI due to klebsiella and proteus, resolving - bacteremia 1/2 sets from 11/25/2018 due to coag negative Staph - also a component of SIRS due to acute hypoxic resp failure, acute on chronic renal failure - acute hypoxic resp failure, probably due to CHF exacerbation +/- aspiration pneumonia/pneumonitis, off bipap - CHF exacerbation, improved after HD - bradycardia - acute on chronic renal failure, started on HD on 11/26/2018 - anemia - underlying COPD - CAD - hypothyroidism - TSH elevated and FT4 depressed - gout - eschar of L 4th toe, probably ischemic eschar/ischemia - acute encephalopathy due to sepsis, improving recommendations: - ordered: venous doppler CARINE of b/l UEs - monitor Pt off systemic antibiotics, continue respiratory treatment, supportive care - Pt completed cefepime (11/30/2018-12/02/2018); Pt previously received ceftriaxone () management d/w Pt's [place] Result Diagram: 12/05/18192712/05/18 0516 Results 24hrs Laboratory Tests Test 12/05/18 05:16 12/05/18 13:22 12/05/18 19:28 White Blood Count 13.9 H Red Blood Count 3.19 #L Hemoglobin 9.4 #L 10.6 L 10.1 L Hematocrit 27.7 #L 31.6 L 30.0 L Mean Corpuscular Volume 86.8 Mean Corpuscular Hemoglobin 29.5 Mean Corpuscular Hemoglobin Concent 33.9 Red Cell Distribution Width 15.9 H Platelet Count 134 L Mean Platelet Volume 11.3 H Immature Granulocytes % 1.200 H Neutrophils % 85.2 H Lymphocytes % 5.2 L Monocytes % 7.8 Eosinophils % 0.5 Basophils % 0.1 Nucleated Red Blood Cells % 0.0 Immature Granulocytes # 0.170 H Neutrophils # 11.9 H Lymphocytes # 0.7 L Monocytes # 1.1 H Eosinophils # 0.1 Basophils # 0.0 Nucleated Red Blood Cells # 0.0 Sodium Level 138 Potassium Level 3.3 L Chloride Level 102 Carbon Dioxide Level 27 Anion Gap 9 Blood Urea Nitrogen 58 #H Creatinine 3.00 H Est Glomerular Filtrat Rate mL/min Glucose Level 166 Calcium Level 8.4 Consultation Date/Type/Reason Admit Date/Time Nov 26, 2018 at 11:28 Initial Consult Date 11/27/18 Type of Consult ID Requesting Provider: KATIE MENDEZ 24 HR Interval Summary Free Text/Dictation received two units of pRBC Constitutional: requiring O2, other (dizzy); No febrile Detailed Summary Eyes: no complaints ENT: no complaints Respiratory: no complaints Cardiovascular: no complaints Gastrointestinal: no complaints Genitourinary: other (FC) Musculoskeletal: no complaints Skin: no complaints Exam/Review of Systems Vital Signs Vitals Vital Signs Date Temp Pulse Resp B/P (MAP) Pulse Ox O2 O2 Flow FiO2 Time Delivery Rate 12/05/18 2.0 20:04 12/05/18 84 18 97 Nasal 20:04 Cannula 12/05/18 99.5 118/57 20:00 (77) 12/02/18 40 03:59 Intake and Output 12/04/18 12/04/18 12/05/18 1515:00 23:00 07:00 IntakeIntake Total 300 ml 360 ml OutputOutput Total 200 ml 4150 ml BalanceBalance 100 ml -3790 ml Exam Constitutional: frail, obese Psych: no complaints, nl mood/affect Head: normocephalic, atraumatic Eyes: nl conjunctiva, nl lids ENMT: nl external ears & nose, nl nasal mucosa & septum, mucosa pink and moist Neck: other (not swollen) Respiratory: diminished breath sounds Cardiovascular: regular rate and rhythm, nl pulses, edema (b/l UEs) Gastrointestinal: soft, non-tender Extremities: edema, pitting pedal edema 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: lethargic Skin: ecchymosis (b/l UE and hands) Medications Medications Current Medications Albuterol/ Ipratropium (Duoneb) 3 ml Q6HWA RESP THERAPY HHN Last administered on 12/05/18at 20:04; Admin Dose 3 ML; Start 11/26/18 at 08:00 Acetaminophen (Tylenol Tab) 500 mg Q6H PRN PO MILD PAIN(1-3)OR ELEVATED TEMP Last administered on 12/03/18 12:15; Admin Dose 500 MG; Start 11/25/18 at 22:30 Albumin Human 50 ml @ 100 mls/hr WITH DIALYSIS PRN IV SBP lower than 90 mm Hg Last administered on 12/05/18 12:07; Admin Dose 100 MLS/HR; Start 11/26/18 at 14:00 Sodium Chloride (NS) -To prime the dialy... DIRECTED FOR HD PRN IV SBP lower than 90 mm Hg ; Start 11/26/18 at 14:00 IV Flush (NS 10 ml) 10 ml PRN PRN IV IV PROTOCOL; Start 11/26/18 at 14:30 Hydralazine HCl (Apresoline) 20 mg Q6H PRN IV SBP > 160 Last administered on 11/29/18 12:33; Admin Dose 20 MG; Start 11/28/18 at 07:00 Albuterol/ Ipratropium (Duoneb) 3 ml Q4H RESP THERAPY PRN HHN SHORTNESS OF BREATH Last administered on 12/02/18 03:49; Admin Dose 3 ML; Start 11/29/18 at 01:00 Metoprolol Tartrate (Lopressor) 25 mg BID PO Last administered on 12/05/18 20:31; Admin Dose 25 MG; Start 11/30/18 at 21:00 Metoprolol Tartrate (Lopressor) 5 mg Q4H PRN IV HR>110 Hold SBP<100; Start 11/30/18 at 12:30 Heparin Sodium (Porcine) (Heparin (1000 Units/ml)) 2,800 unit AFTER DIALYSIS CATHETER Last administered on 12/05/18 13:24; Admin Dose 2,800 UNIT; Start 12/01/18 at 11:30 Levothyroxine Sodium (Synthroid Iv) 100 mcg DAILY@06 IV Last administered on 12/05/18 05:32; Admin Dose 100 MCG; Start 12/02/18 at 06:00 Haloperidol (Haldol) 2 mg Q6H PRN IV hallucinations Last administered on 12/02/18 03:21; Admin Dose 2 MG; Start 12/01/18 at 19:30 Pantoprazole (Protonix Iv) 40 mg BID IV Last administered on 12/05/18 20:26; Admin Dose 40 MG; Start 12/04/18 at 06:00 Bisacodyl (Dulcolax) 10 mg ONCE ONCE PO ; Start 12/06/18 at 17:00; Stop 12/06/18 at 17:01 Polyethylene Glycol/ Electrolytes (Golytely) 2,000 ml ONCE ONCE PO ; Start 12/06/18 at 17:00; Stop 12/06/18 at 17:01 Nifedipine (Procardia Xl) 30 mg BID PO ; Start 12/05/18 at 21:00 RICHARD MOBLEY M.D. Dec 05, 2018 21:49
[2018-12-06] VITALS (11 sets, daily range): BP systolic 95–128; BP diastolic 53–73; PULSE 65–173; RESP 18–20
[2018-12-06] MEDS: LEVOTHYROXINE 100 MCG VIAL IV SCH (05:31)
[2018-12-06] MEDS: PANTOPRAZOLE 40 MG INJ IV SCH ×2 (08:09→20:28)
[2018-12-06] MEDS: METOPROLOL 25 MG TAB PO SCH ×2 (08:09→20:28)
[2018-12-06] MEDS: NIFEdipine (XL) 30 MG TAB PO SCH (08:10)
[2018-12-06] MEDS: ALBUTEROL/IPRATROPIUM (NEB) 3 ML AMP HHN SCH ×3 (08:53→20:50)
--- NOTE | 2018-12-06 11:43 | PN ---
Date/Time of Note Date/Time of Note DATE: 12/06/18 TIME: 11:43 Assessment/Plan VTE Prophylaxis Risk score (from Ns)>0 risk: 4 SCD applied (from Ns): Yes Pharmacological prophylaxis: LMWH Lines/Catheters IV Catheter Type (from [facility]): aron Urinary Cath still in place: Yes Reason Cath still needed: skin wounds contaminated by urine Assessment/Plan Hospital Course -Anemia secondary to GI bleed. Protonix IV. Heparin is stopped. Transfuse as needed. Dr. Lewis is asked to see patient in gastroenterology consultation. -Acute respiratory failure. Dr. Garcia is following in pulmonology consultation. -Sepsis secondary to UTI. Continue antibiotics per ID. Dr. Jordan is following in infection disease consultation. -S/p septic and cardiogenic shock -Left lower lobe pneumonia -Acute on chronic systolic and diastolic congestive heart failure. Dr. Iraheta is following in cardiology consultation. -ARF on CKD. Patient started on hemodialysis during this admission. Continue hemodialysis per nephrology. Dr Hill is following in nephrology consultation. -Pulmonary edema -Hypothyroidism, continue Synthroid. -DNR status Result Diagram: 12/06/18 0524 12/06/18 0523 Results 24hrs Laboratory Tests Test 12/05/18 13:22 12/05/18 19:28 12/06/18 05:23 12/06/18 05:24 Hemoglobin 10.6 L 10.1 L 9.5 L Hematocrit 31.6 L 30.0 L 29.1 L Prothrombin Time 12.5 Prothrombin Time 1.0 Ratio INR International 0.92 Normalized Ratio Activated 31.4 Partial Thromboplast Time Sodium Level 137 Potassium Level 3.6 Chloride Level 99 Carbon Dioxide Level 29 Anion Gap 9 Blood Urea Nitrogen 43 #H Creatinine 3.41 H Est Glomerular Filtrat Rate mL/min Glucose Level 116 # Calcium Level 8.7 White Blood Count 9.8 # Red Blood Count 3.27 L Mean Corpuscular 89.0 Volume Mean Corpuscular 29.1 Hemoglobin Mean Corpuscular 32.6 Hemoglobin Concent Red Cell 16.1 H Distribution Width Platelet Count 156 Mean Platelet Volume 10.3 Immature 1.000 H Granulocytes % Neutrophils % 75.1 Lymphocytes % 8.9 L Monocytes % 13.8 H Eosinophils % 1.0 Basophils % 0.2 Nucleated Red Blood 0.0 Cells % Immature 0.100 H Granulocytes # Neutrophils # 7.4 Lymphocytes # 0.9 Monocytes # 1.4 H Eosinophils # 0.1 Basophils # 0.0 Nucleated Red Blood 0.0 Cells # Subjective 24 Hr Interval Summary Free Text/Dictation Patient has no complaints Exam/Review of Systems Vital Signs Vitals Vital Signs Date Temp Pulse Resp B/P (MAP) Pulse Ox O2 O2 Flow FiO2 Time Delivery Rate 12/06/18 82 08:37 12/06/18 Nasal 3.0 07:38 Cannula 12/06/18 99.3 95/53 (67) 96 07:31 12/06/18 18 04:00 Intake and Output 12/05/18 12/05/18 12/06/18 1515:00 23:00 07:00 IntakeIntake Total 300 ml 450 ml OutputOutput Total 2450 ml 300 ml 100 ml BalanceBalance -2450 ml 0 ml 350 ml Exam Constitutional: well developed Head: normocephalic, atraumatic Neck: supple Respiratory: diminished breath sounds Cardiovascular: regular rate and rhythm Gastrointestinal: soft, non-tender Extremities: normal pulses Medications Medications Current Medications Albuterol/ Ipratropium (Duoneb) 3 ml Q6HWA RESP THERAPY HHN Last administered on 12/06/18at 08:53; Admin Dose 3 ML; Start 11/26/18 at 08:00 Acetaminophen (Tylenol Tab) 500 mg Q6H PRN PO MILD PAIN(1-3)OR ELEVATED TEMP Last administered on 12/03/18at 12:15; Admin Dose 500 MG; Start 11/25/18 at 22:30 Albumin Human 50 ml @ 100 mls/hr WITH DIALYSIS PRN IV SBP lower than 90 mm Hg Last administered on 12/05/18at 12:07; Admin Dose 100 MLS/HR; Start 11/26/18 at 14:00 Sodium Chloride (NS) -To prime the dialy... DIRECTED FOR HD PRN IV SBP lower than 90 mm Hg ; Start 11/26/18 at 14:00 IV Flush (NS 10 ml) 10 ml PRN PRN IV IV PROTOCOL; Start 11/26/18 at 14:30 Hydralazine HCl (Apresoline) 20 mg Q6H PRN IV SBP > 160 Last administered on 11/29/18at 12:33; Admin Dose 20 MG; Start 11/28/18 at 07:00 Albuterol/ Ipratropium (Duoneb) 3 ml Q4H RESP THERAPY PRN HHN SHORTNESS OF BREATH Last administered on 12/02/18at 03:49; Admin Dose 3 ML; Start 11/29/18 at 01:00 Metoprolol Tartrate (Lopressor) 25 mg BID PO Last administered on 12/05/18at 20:31; Admin Dose 25 MG; Start 11/30/18 at 21:00 Metoprolol Tartrate (Lopressor) 5 mg Q4H PRN IV HR>110 Hold SBP<100; Start 11/30/18 at 12:30 Heparin Sodium (Porcine) (Heparin (1000 Units/ml)) 2,800 unit AFTER DIALYSIS CATHETER Last administered on 12/05/18 13:24; Admin Dose 2,800 UNIT; Start 12/01/18 at 11:30 Levothyroxine Sodium (Synthroid Iv) 100 mcg DAILY@06 IV Last administered on 12/06/18 05:31; Admin Dose 100 MCG; Start 12/02/18 at 06:00 Haloperidol (Haldol) 2 mg Q6H PRN IV hallucinations Last administered on 12/02/18 03:21; Admin Dose 2 MG; Start 12/01/18 at 19:30 Pantoprazole (Protonix Iv) 40 mg BID IV Last administered on 12/06/18at 08:09; Admin Dose 40 MG; Start 12/04/18 at 06:00 Bisacodyl (Dulcolax) 10 mg ONCE ONCE PO ; Start 12/06/18 at 17:00; Stop 12/06/18 at 17:01 Polyethylene Glycol/ Electrolytes (Golytely) 2,000 ml ONCE ONCE PO ; Start 12/06/18 at 17:00; Stop 12/06/18 at 17:01 Nifedipine (Procardia Xl) 30 mg BID PO ; Start 12/05/18 at 21:00 LAMONT BREWER Dec 06, 2018 11:43
--- NOTE | 2018-12-06 12:52 | CONS ---
Date/Time of Note Date/Time of Note DATE: 12/06/18 TIME: 12:50 Assessment/Plan Assessment/Plan Assessment/Plan - Hypokalemia -resolved 1. Oliguric Acute kindey injury on CKD III due to ATN from septic shock, 2. Acute uremic encephalopathy 3. Acute hyperkalemia- resolved 4. Severe metabolic acidosis 5. Septic shock on pressors 2/2 UTI and bacteremia 6. acute hypoxemic respiraotry failure on BIPAP 7. acute on chronic,systolic and diastolic heart failure 8. H/o HTN 9. H/o COPD Plan: Hgb 10.1 started on HD on 11/26/17- - Mic catheter did not work well, s/p Removal and placement of new mic, Hb was low- plan for HD yesterday with 2 units PRBC Extra HD TODAY IV abx as per PMD, renally dose all abx and monitor electrolytes will follow up Patient [place] [facility] [place] [facility] Hilda Jeong/. [facility] staff Result Diagram: 12/06/18 1225 12/06/18 0523 Results 24hrs Laboratory Tests Test 12/05/18 13:22 12/05/18 19:28 12/06/18 05:23 12/06/18 05:24 Hemoglobin 10.6 L 10.1 L 9.5 L Hematocrit 31.6 L 30.0 L 29.1 L Prothrombin Time 12.5 Prothrombin Time 1.0 Ratio INR International 0.92 Normalized Ratio Activated 31.4 Partial Thromboplast Time Sodium Level 137 Potassium Level 3.6 Chloride Level 99 Carbon Dioxide Level 29 Anion Gap 9 Blood Urea Nitrogen 43 #H Creatinine 3.41 H Est Glomerular Filtrat Rate mL/min Glucose Level 116 # Calcium Level 8.7 White Blood Count 9.8 # Red Blood Count 3.27 L Mean Corpuscular 89.0 Volume Mean Corpuscular 29.1 Hemoglobin Mean Corpuscular 32.6 Hemoglobin Concent Red Cell 16.1 H Distribution Width Platelet Count 156 Mean Platelet Volume 10.3 Immature 1.000 H Granulocytes % Neutrophils % 75.1 Lymphocytes % 8.9 L Monocytes % 13.8 H Eosinophils % 1.0 Basophils % 0.2 Nucleated Red Blood 0.0 Cells % Immature 0.100 H Granulocytes # Neutrophils # 7.4 Lymphocytes # 0.9 Monocytes # 1.4 H Eosinophils # 0.1 Basophils # 0.0 Nucleated Red Blood 0.0 Cells # Test 12/06/18 12:25 Hemoglobin 10.1 L Hematocrit 30.5 L Consultation Date/Type/Reason Admit Date/Time Nov 26, 2018 at 11:28 Initial Consult Date 11/27/18 Requesting Provider: KATIE MENDEZ 24 HR Interval Summary Free Text/Dictation - nad - feels better - right /left HD cat noted but left one is patent to be used - no new events reported last night per staff Constitutional: requiring O2 Detailed Summary Eyes: no complaints ENT: no complaints Respiratory: no complaints Cardiovascular: no complaints Gastrointestinal: no complaints Exam/Review of Systems Vital Signs Vitals Vital Signs Date Temp Pulse Resp B/P (MAP) Pulse Ox O2 O2 Flow FiO2 Time Delivery Rate 12/06/18 90 12:29 12/06/18 98.2 20 128/60 97 Nasal 11:45 (82) Cannula 12/06/18 3.0 07:38 Intake and Output 12/05/18 12/05/18 12/06/18 1515:00 23:00 07:00 IntakeIntake Total 300 ml 450 ml OutputOutput Total 2450 ml 300 ml 100 ml BalanceBalance -2450 ml 0 ml 350 ml Exam Constitutional: alert, well developed Psych: nl mood/affect Head: atraumatic Eyes: nl conjunctiva, EOMI, nl lids, nl sclera ENMT: nl external ears & nose Neck: non-tender Respiratory: diminished breath sounds (at bases bilaterlly) Cardiovascular: nl pulses, other (s1s2) Gastrointestinal: soft, non-tender Musculoskeletal: muscle weakness Extremities: normal pulses 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: nl speech, other (alert/responsive) Skin: nl turgor Lymph: nontender Medications Medications Current Medications Albuterol/ Ipratropium (Duoneb) 3 ml Q6HWA RESP THERAPY HHN Last administered on 12/06/18at 08:53; Admin Dose 3 ML; Start 11/26/18 at 08:00 Acetaminophen (Tylenol Tab) 500 mg Q6H PRN PO MILD PAIN(1-3)OR ELEVATED TEMP Last administered on 12/03/18at 12:15; Admin Dose 500 MG; Start 11/25/18 at 22:30 Albumin Human 50 ml @ 100 mls/hr WITH DIALYSIS PRN IV SBP lower than 90 mm Hg Last administered on 12/05/18at 12:07; Admin Dose 100 MLS/HR; Start 11/26/18 at 14:00 Sodium Chloride (NS) -To prime the dialy... DIRECTED FOR HD PRN IV SBP lower than 90 mm Hg ; Start 11/26/18 at 14:00 IV Flush (NS 10 ml) 10 ml PRN PRN IV IV PROTOCOL; Start 11/26/18 at 14:30 Hydralazine HCl (Apresoline) 20 mg Q6H PRN IV SBP > 160 Last administered on 11/29/18at 12:33; Admin Dose 20 MG; Start 11/28/18 at 07:00 Albuterol/ Ipratropium (Duoneb) 3 ml Q4H RESP THERAPY PRN HHN SHORTNESS OF BREATH Last administered on 12/02/18 03:49; Admin Dose 3 ML; Start 11/29/18 at 01:00 Metoprolol Tartrate (Lopressor) 25 mg BID PO Last administered on 12/05/18 20:31; Admin Dose 25 MG; Start 11/30/18 at 21:00 Metoprolol Tartrate (Lopressor) 5 mg Q4H PRN IV HR>110 Hold SBP<100; Start 11/30/18 at 12:30 Heparin Sodium (Porcine) (Heparin (1000 Units/ml)) 2,800 unit AFTER DIALYSIS CATHETER Last administered on 12/05/18at 13:24; Admin Dose 2,800 UNIT; Start 12/01/18 at 11:30 Levothyroxine Sodium (Synthroid Iv) 100 mcg DAILY@06 IV Last administered on 12/06/18at 05:31; Admin Dose 100 MCG; Start 12/02/18 at 06:00 Haloperidol (Haldol) 2 mg Q6H PRN IV hallucinations Last administered on 12/02/18 03:21; Admin Dose 2 MG; Start 12/01/18 at 19:30 Pantoprazole (Protonix Iv) 40 mg BID IV Last administered on 12/06/18 08:09; Admin Dose 40 MG; Start 12/04/18 at 06:00 Bisacodyl (Dulcolax) 10 mg ONCE ONCE PO ; Start 12/06/18 at 17:00; Stop 12/06/18 at 17:01 Polyethylene Glycol/ Electrolytes (Golytely) 2,000 ml ONCE ONCE PO ; Start 12/06/18 at 17:00; Stop 12/06/18 at 17:01 Nifedipine (Procardia Xl) 30 mg BID PO ; Start 12/05/18 at 21:00 KATIE MENDEZ Dec 06, 2018 12:52
--- NOTE | 2018-12-06 14:40 | CONS ---
Date/Time of Note Date/Time of Note DATE: 12/06/18 TIME: 14:37 Assessment/Plan Assessment/Plan Hospital Course IMPRESSION: 1. Shock, on dopamine pressor support at this time with previously preserved EF by most recent echo September 2018 of 60% to 65%.-improved off dopamine and tolerating BP medications 2. Abnormal echocardiogram, assess for acute coronary syndrome. 3. Congestive heart failure, diastolic, acute on chronic, in the setting of renal failure. 4. Renal failure now on HD 5. Anemia-requiring transfusions 6. Hyponatremia-improved 7. Urinary tract infection. 8. Tachycardia-c/w AF/AFL with RVR 9. Bradycardia- to 40's when converts to SR REcc: -Now on tele -Continue abx's and f/u cx data -Follow volume status clsoely -Follow for recurrent significant bradycardia -Continue steroids/bronchodilators -Will further decrease dose of procardia XL and continue BB as tolerated -HD for volume removal Result Diagram: 12/06/18 1225 12/06/18 0523 Results 24hrs Laboratory Tests Test 12/05/18 19:28 12/06/18 05:23 12/06/18 05:24 12/06/18 12:25 Hemoglobin 10.1 L 9.5 L 10.1 L Hematocrit 30.0 L 29.1 L 30.5 L Prothrombin Time 12.5 Prothrombin Time 1.0 Ratio INR International 0.92 Normalized Ratio Activated 31.4 Partial Thromboplast Time Sodium Level 137 Potassium Level 3.6 Chloride Level 99 Carbon Dioxide Level 29 Anion Gap 9 Blood Urea Nitrogen 43 #H Creatinine 3.41 H Est Glomerular Filtrat Rate mL/min Glucose Level 116 # Calcium Level 8.7 White Blood Count 9.8 # Red Blood Count 3.27 L Mean Corpuscular 89.0 Volume Mean Corpuscular 29.1 Hemoglobin Mean Corpuscular 32.6 Hemoglobin Concent Red Cell 16.1 H Distribution Width Platelet Count 156 Mean Platelet Volume 10.3 Immature 1.000 H Granulocytes % Neutrophils % 75.1 Lymphocytes % 8.9 L Monocytes % 13.8 H Eosinophils % 1.0 Basophils % 0.2 Nucleated Red Blood 0.0 Cells % Immature 0.100 H Granulocytes # Neutrophils # 7.4 Lymphocytes # 0.9 Monocytes # 1.4 H Eosinophils # 0.1 Basophils # 0.0 Nucleated Red Blood 0.0 Cells # Consultation Date/Type/Reason Admit Date/Time Nov 26, 2018 at 11:28 Initial Consult Date 11/26/18 Type of Consult cardiology Reason for Consultation CHF Requesting Provider: KATIE MENDEZ Exam/Review of Systems Vital Signs Vitals Vital Signs Date Temp Pulse Resp B/P (MAP) Pulse Ox O2 O2 Flow FiO2 Time Delivery Rate 12/06/18 74 20 96 Nasal 2.0 13:58 Cannula 12/06/18 98.2 128/60 11:45 (82) Intake and Output 12/05/18 12/05/18 12/06/18 1515:00 23:00 07:00 IntakeIntake Total 300 ml 450 ml OutputOutput Total 2450 ml 300 ml 100 ml BalanceBalance -2450 ml 0 ml 350 ml Exam Review of Systems: CONSTITUTIONAL: No fevers, chills. PULMONARY: No sob CARDIOVASCULAR: No chest pain/palpitations GASTROINTESTINAL: No nausea/vomiting. GENITOURINARY: No hematuria/dysuria. MUSCULOSKELETAL: No myagias/arthalgias. PSYCHIATRIC: The patient denies depression. NEUROLOGIC: No weakness Constitutional: alert, oriented Psych: no complaints Head: normocephalic ENMT: mucosa pink and moist Neck: supple, jvd (9 cm water) Respiratory: diminished breath sounds Cardiovascular: regular rate and rhythm Gastrointestinal: soft, non-tender Musculoskeletal: muscle tone (normal) Extremities: pitting pedal edema (bilateral) 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: other (Focal deficits) Medications Medications Current Medications Albuterol/ Ipratropium (Duoneb) 3 ml Q6HWA RESP THERAPY HHN Last administered on 12/06/18at 13:57; Admin Dose 3 ML; Start 11/26/18 at 08:00 Acetaminophen (Tylenol Tab) 500 mg Q6H PRN PO MILD PAIN(1-3)OR ELEVATED TEMP Last administered on 12/03/18at 12:15; Admin Dose 500 MG; Start 11/25/18 at 22:30 Albumin Human 50 ml @ 100 mls/hr WITH DIALYSIS PRN IV SBP lower than 90 mm Hg Last administered on 12/05/18at 12:07; Admin Dose 100 MLS/HR; Start 11/26/18 at 14:00 Sodium Chloride (NS) -To prime the dialy... DIRECTED FOR HD PRN IV SBP lower than 90 mm Hg ; Start 11/26/18 at 14:00 IV Flush (NS 10 ml) 10 ml PRN PRN IV IV PROTOCOL; Start 11/26/18 at 14:30 Hydralazine HCl (Apresoline) 20 mg Q6H PRN IV SBP > 160 Last administered on 11/29/18at 12:33; Admin Dose 20 MG; Start 11/28/18 at 07:00 Albuterol/ Ipratropium (Duoneb) 3 ml Q4H RESP THERAPY PRN HHN SHORTNESS OF BREATH Last administered on 12/02/18at 03:49; Admin Dose 3 ML; Start 11/29/18 at 01:00 Metoprolol Tartrate (Lopressor) 25 mg BID PO Last administered on 12/05/18at 20:31; Admin Dose 25 MG; Start 11/30/18 at 21:00 Metoprolol Tartrate (Lopressor) 5 mg Q4H PRN IV HR>110 Hold SBP<100; Start 11/30/18 at 12:30 Heparin Sodium (Porcine) (Heparin (1000 Units/ml)) 2,800 unit AFTER DIALYSIS CATHETER Last administered on 12/05/18at 13:24; Admin Dose 2,800 UNIT; Start 12/01/18 at 11:30 Levothyroxine Sodium (Synthroid Iv) 100 mcg DAILY@06 IV Last administered on 12/06/18at 05:31; Admin Dose 100 MCG; Start 12/02/18 at 06:00 Haloperidol (Haldol) 2 mg Q6H PRN IV hallucinations Last administered on 12/02/18at 03:21; Admin Dose 2 MG; Start 12/01/18 at 19:30 Pantoprazole (Protonix Iv) 40 mg BID IV Last administered on 12/06/18at 08:09; Admin Dose 40 MG; Start 12/04/18 at 06:00 Bisacodyl (Dulcolax) 10 mg ONCE ONCE PO ; Start 12/06/18 at 17:00; Stop 12/06/18 at 17:01 Polyethylene Glycol/ Electrolytes (Golytely) 2,000 ml ONCE ONCE PO ; Start 12/06/18 at 17:00; Stop 12/06/18 at 17:01 Nifedipine (Procardia Xl) 30 mg BID PO ; Start 12/05/18 at 21:00 ALVINA GARCIA Dec 06, 2018 14:40
--- NOTE | 2018-12-06 14:48 | CONS ---
[facility] HCIS Consult Follow-up Patient Name: Rupinder Simon Unit Number: [id number] Date of : 1930 Patient Status: Admitted Inpatient Attending Doctor: Jaylen Olivier MD Edit: RICHARD ZUNIGA M.D. on 12/07/18 @ 00:48 Nadia attestation: I discussed the management with [employer]OD HAND[employer]ER Val and agree with her. Will review the results of EGD and colonoscopy once they get done ___ Date/Time of Note Date/Time of Note DATE: 12/06/18 TIME: 14:37 Assessment/Plan Assessment/Plan Hospital Course Assessment/Impression: - leukocytosis on 12/05/2018 may reflect receipt of pRBC x2 units - leukocytosis prior to that was likely due to steroid 11/25/2018-12/01/2018 - sepsis due to UTI possibly bacteremia although the latter could be a contaminant - UTI due to klebsiella and proteus, resolving - bacteremia /2 sets from 11/25/2018 due to coag negative Staph - also a component of SIRS due to acute hypoxic resp failure, acute on chronic renal failure - acute hypoxic resp failure, probably due to CHF exacerbation +/- aspiration pneumonia/pneumonitis, off bipap - CHF exacerbation, improved after HD - bradycardia - acute on chronic renal failure, started on HD on 11/26/2018 - anemia - underlying COPD - CAD - hypothyroidism - TSH elevated and FT4 depressed - gout - eschar of L 4th toe, probably ischemic eschar/ischemia - acute encephalopathy due to sepsis, improving Recommendations: - monitor Pt off systemic antibiotics, continue respiratory treatment, supportive care - Pt completed cefepime (11/30/2018-12/02/2018); Pt previously received ceftriaxone () Management was d/w Dr. Zuniga Thank you Result Diagram: 12/06/18 1225 12/06/18 0523 Results 24hrs Laboratory Tests Test 1/12/19 19:28 12/06/18 05:23 12/06/18 05:24 12/06/18 12:25 Hemoglobin 10.1 L 9.5 L 10.1 L Hematocrit 30.0 L 29.1 L 30.5 L Prothrombin Time 12.5 Prothrombin Time 1.0 Ratio INR International 0.92 Normalized Ratio Activated 31.4 Partial Thromboplast Time Sodium Level 137 Potassium Level 3.6 Chloride Level 99 Carbon Dioxide Level 29 Anion Gap 9 Blood Urea Nitrogen 43 #H Creatinine 3.41 H Est Glomerular Filtrat Rate mL/min Glucose Level 116 # Calcium Level 8.7 White Blood Count 9.8 # Red Blood Count 3.27 L Mean Corpuscular 89.0 Volume Mean Corpuscular 29.1 Hemoglobin Mean Corpuscular 32.6 Hemoglobin Concent Red Cell 16.1 H Distribution Width Platelet Count 156 Mean Platelet Volume 10.3 Immature 1.000 H Granulocytes % Neutrophils % 75.1 Lymphocytes % 8.9 L Monocytes % 13.8 H Eosinophils % 1.0 Basophils % 0.2 Nucleated Red Blood 0.0 Cells % Immature 0.100 H Granulocytes # Neutrophils # 7.4 Lymphocytes # 0.9 Monocytes # 1.4 H Eosinophils # 0.1 Basophils # 0.0 Nucleated Red Blood 0.0 Cells # Consultation Date/Type/Reason Admit Date/Time Nov 26, 2018 at 11:28 Initial Consult Date 11/27/18 Type of Consult ID Requesting Provider: KATIE MENDEZ 24 HR Interval Summary Free Text/Dictation Patient and her daughter at the bedside deny any ROS today. Patient does c/o restless leg syndrome again. Patient has remained afebrile with no acute issues reported by nursing. HD yesterday 2L out. Exam/Review of Systems Vital Signs Vitals Vital Signs Date Temp Pulse Resp B/P (MAP) Pulse Ox O2 O2 Flow FiO2 Time Delivery Rate 12/06/18 74 20 96 Nasal 2.0 13:58 Cannula 12/06/18 98.2 128/60 11:45 (82) Intake and Output 12/05/18 12/05/18 12/06/18 1515:00 23:00 07:00 IntakeIntake Total 300 ml 450 ml OutputOutput Total 2450 ml 300 ml 100 ml BalanceBalance -2450 ml 0 ml 350 ml Allergies Coded Allergies aspirin (Verified Allergy, Unknown, 11/25/18) Exam Constitutional: alert, oriented, well developed, frail, other (resting comfortably in no acute distress ) Psych: no complaints, nl mood/affect (smiles when she sees me ) Head: normocephalic, atraumatic Eyes: nl conjunctiva, nl lids ENMT: nl external ears & nose, nl nasal mucosa & septum, mucosa pink and moist (no thrush noted; poor dentition ) Neck: supple, non-tender (not swollen ) Respiratory: clear to auscultation, normal air movement, diminished breath sounds (bibasilarlly,anteriorly, no wheezing; ) Cardiovascular: regular rate and rhythm, nl pulses Gastrointestinal: soft (nontender), non-tender, bowel sounds (normoactive ) Genitourinary - Female: other (+f/c) Musculoskeletal: nl extremities to inspection Extremities: normal pulses 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: nl mental status, nl speech, nl strength Skin: nl turgor, ecchymosis (tacos dorsal hands and wrists ) Medications Medications Current Medications Albuterol/ Ipratropium (Duoneb) 3 ml Q6HWA RESP THERAPY HHN Last administered on 12/06/18at 13:57; Admin Dose 3 ML; Start 11/26/18 at 08:00 Acetaminophen (Tylenol Tab) 500 mg Q6H PRN PO MILD PAIN(1-3)OR ELEVATED TEMP Last administered on 12/03/18at 12:15; Admin Dose 500 MG; Start 11/25/18 at 22:30 Albumin Human 50 ml @ 100 mls/hr WITH DIALYSIS PRN IV SBP lower than 90 mm Hg Last administered on 12/05/18at 12:07; Admin Dose 100 MLS/HR; Start 11/26/18 at 14:00 Sodium Chloride (NS) -To prime the dialy... DIRECTED FOR HD PRN IV SBP lower than 90 mm Hg ; Start 11/26/18 at 14:00 IV Flush (NS 10 ml) 10 ml PRN PRN IV IV PROTOCOL; Start 11/26/18 at 14:30 Hydralazine HCl (Apresoline) 20 mg Q6H PRN IV SBP > 160 Last administered on 11/29/18at 12:33; Admin Dose 20 MG; Start 11/28/18 at 07:00 Albuterol/ Ipratropium (Duoneb) 3 ml Q4H RESP THERAPY PRN HHN SHORTNESS OF BREATH Last administered on 12/02/18at 03:49; Admin Dose 3 ML; Start 11/29/18 at 01:00 Metoprolol Tartrate (Lopressor) 25 mg BID PO Last administered on 12/05/18at 20:31; Admin Dose 25 MG; Start 11/30/18 at 21:00 Metoprolol Tartrate (Lopressor) 5 mg Q4H PRN IV HR>110 Hold SBP<100; Start 11/30/18 at 12:30 Heparin Sodium (Porcine) (Heparin (1000 Units/ml)) 2,800 unit AFTER DIALYSIS CATHETER Last administered on 12/05/18at 13:24; Admin Dose 2,800 UNIT; Start 12/01/18 at 11:30 Levothyroxine Sodium (Synthroid Iv) 100 mcg DAILY@06 IV Last administered on 12/06/18at 05:31; Admin Dose 100 MCG; Start 12/02/18 at 06:00 Haloperidol (Haldol) 2 mg Q6H PRN IV hallucinations Last administered on 12/02/18at 03:21; Admin Dose 2 MG; Start 12/01/18 at 19:30 Pantoprazole (Protonix Iv) 40 mg BID IV Last administered on 12/06/18at 08:09; Admin Dose 40 MG; Start 12/04/18 at 06:00 Bisacodyl (Dulcolax) 10 mg ONCE ONCE PO ; Start 12/06/18 at 17:00; Stop 12/06/18 at 17:01 Polyethylene Glycol/ Electrolytes (Golytely) 2,000 ml ONCE ONCE PO ; Start 12/06/18 at 17:00; Stop 12/06/18 at 17:01 Nifedipine (Procardia Xl) 30 mg BID PO ; Start 12/05/18 at 21:00 Imaging Imaging 12/06/18 US Upper extremity venous IMPRESSION: No sonographic evidence for venous thrombosis. Limited visualization left upper extremity venous system. PRINCE SMITH NP Dec 06, 2018 14:47
[2018-12-06] MEDS ORDERED: PEG/ELECTROLYTES 4L BTL PO ONE (17:00)
[2018-12-06] MEDS ORDERED: BISACODYL (EC) 5 MG TAB PO ONE (17:00)
--- NOTE | 2018-12-06 17:19 | CONS ---
Date/Time of Note Date/Time of Note DATE: 12/06/18 TIME: 17:18 Assessment/Plan Assessment/Plan Assessment/Plan Assessment/Plan 88 yo female presented with SOB, found to have septic and cardiogenic shock, stable on telemetry floor with acute drop in HH with positive FOB 1. Anemia -acute on chronic secondary to blood loss -pos FOB -hematochezia, no melena 2. Acute respiratory failure -improved -followed by Dr. Garcia 3. VRE in urine -pt was septic, stable now, ID following 4. S/P septic and cardiogenic shock 5. CKD III with acute renal failure -started on HD during this admission. -Dr Hill, nephrology 6. Acute on chronic diastolic CHF -Dr Iraheta from cardiology 7. Left lower lobe pneumonia 8. Hypothyroidism -management by primary 9. DNR status Plan: Patient currently is not having N/V or active bleeding from rectum. EGD and/or colonoscopy I spoke with [place] the daughter who consent to which ever procedure, EGD/colonoscopy, that is necessary. Shara, patient's RN, witnessed consent. No anticoagulants Monitor HH and replace as needed, q [address] Hill, nephrology has ordered 2 units to be given with HD Dr Cuevas will be placing Mic catheter at 1500 and pt will be receiving dialysis right afterward. PPI BID IV Cardiac clearance, patient's ejection fraction is good at 60-65% NPO Patient is scheduled for EGD and colonoscopy on Friday Result Diagram: 12/06/18 1225 12/06/18 0523 Results 24hrs Laboratory Tests Test 12/05/18 19:28 12/06/18 05:23 12/06/18 05:24 12/06/18 12:25 Hemoglobin 10.1 L 9.5 L 10.1 L Hematocrit 30.0 L 29.1 L 30.5 L Prothrombin Time 12.5 Prothrombin Time 1.0 Ratio INR International 0.92 Normalized Ratio Activated 31.4 Partial Thromboplast Time Sodium Level 137 Potassium Level 3.6 Chloride Level 99 Carbon Dioxide Level 29 Anion Gap 9 Blood Urea Nitrogen 43 #H Creatinine 3.41 H Est Glomerular Filtrat Rate mL/min Glucose Level 116 # Calcium Level 8.7 White Blood Count 9.8 # Red Blood Count 3.27 L Mean Corpuscular 89.0 Volume Mean Corpuscular 29.1 Hemoglobin Mean Corpuscular 32.6 Hemoglobin Concent Red Cell 16.1 H Distribution Width Platelet Count 156 Mean Platelet Volume 10.3 Immature 1.000 H Granulocytes % Neutrophils % 75.1 Lymphocytes % 8.9 L Monocytes % 13.8 H Eosinophils % 1.0 Basophils % 0.2 Nucleated Red Blood 0.0 Cells % Immature 0.100 H Granulocytes # Neutrophils # 7.4 Lymphocytes # 0.9 Monocytes # 1.4 H Eosinophils # 0.1 Basophils # 0.0 Nucleated Red Blood 0.0 Cells # Consultation Date/Type/Reason Admit Date/Time Nov 26, 2018 at 11:28 Initial Consult Date 11/27/18 Requesting Provider: KATIE MENDEZ 24 HR Interval Summary Constitutional: no complaints, improved Exam/Review of Systems Vital Signs Vitals Vital Signs Date Temp Pulse Resp B/P (MAP) Pulse Ox O2 O2 Flow FiO2 Time Delivery Rate 12/06/18 94 16:22 12/06/18 100.0 18 118/58 96 Nasal 15:46 (78) Cannula 12/06/18 2.0 13:58 Intake and Output 12/05/18 12/05/18 12/06/18 1515:00 23:00 07:00 IntakeIntake Total 300 ml 450 ml OutputOutput Total 2450 ml 300 ml 100 ml BalanceBalance -2450 ml 0 ml 350 ml Exam Constitutional: alert, oriented, well developed Psych: no complaints, nl mood/affect Head: normocephalic, atraumatic Eyes: nl conjunctiva, EOMI, nl lids, nl sclera, PERRL ENMT: nl external ears & nose, nl lips & teeth, nl nasal mucosa & septum Neck: supple, non-tender Respiratory: clear to auscultation, normal air movement Cardiovascular: regular rate and rhythm, nl pulses Gastrointestinal: soft, nl liver, spleen, non-tender Musculoskeletal: nl extremities to inspection, nl gait and stance Extremities: normal pulses 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: BRIEF WRITER II-XII intact, nl mental status, nl speech, nl strength Skin: nl turgor; No rash or lesions Lymph: nl lymph nodes Medications Medications Current Medications Albuterol/ Ipratropium (Duoneb) 3 ml Q6HWA RESP THERAPY HHN Last administered on 12/06/18at 13:57; Admin Dose 3 ML; Start 11/26/18 at 08:00 Acetaminophen (Tylenol Tab) 500 mg Q6H PRN PO MILD PAIN(1-3)OR ELEVATED TEMP Last administered on 12/03/18at 12:15; Admin Dose 500 MG; Start 11/25/18 at 22:30 Albumin Human 50 ml @ 100 mls/hr WITH DIALYSIS PRN IV SBP lower than 90 mm Hg Last administered on 12/05/18at 12:07; Admin Dose 100 MLS/HR; Start 11/26/18 at 14:00 Sodium Chloride (NS) -To prime the dialy... DIRECTED FOR HD PRN IV SBP lower than 90 mm Hg ; Start 11/26/18 at 14:00 IV Flush (NS 10 ml) 10 ml PRN PRN IV IV PROTOCOL; Start 11/26/18 at 14:30 Hydralazine HCl (Apresoline) 20 mg Q6H PRN IV SBP > 160 Last administered on 11/29/18at 12:33; Admin Dose 20 MG; Start 11/28/18 at 07:00 Albuterol/ Ipratropium (Duoneb) 3 ml Q4H RESP THERAPY PRN HHN SHORTNESS OF BREATH Last administered on 12/02/18at 03:49; Admin Dose 3 ML; Start 11/29/18 at 01:00 Metoprolol Tartrate (Lopressor) 25 mg BID PO Last administered on 12/05/18at 20:31; Admin Dose 25 MG; Start 11/30/18 at 21:00 Metoprolol Tartrate (Lopressor) 5 mg Q4H PRN IV HR>110 Hold SBP<100; Start 11/30/18 at 12:30 Heparin Sodium (Porcine) (Heparin (1000 Units/ml)) 2,800 unit AFTER DIALYSIS CATHETER Last administered on 12/05/18 13:24; Admin Dose 2,800 UNIT; Start 12/01/18 at 11:30 Levothyroxine Sodium (Synthroid Iv) 100 mcg DAILY@06 IV Last administered on 12/06/18 05:31; Admin Dose 100 MCG; Start 12/02/18 at 06:00 Haloperidol (Haldol) 2 mg Q6H PRN IV hallucinations Last administered on 12/02/18 03:21; Admin Dose 2 MG; Start 12/01/18 at 19:30 Pantoprazole (Protonix Iv) 40 mg BID IV Last administered on 12/06/18at 08:09; Admin Dose 40 MG; Start 12/04/18 at 06:00 Nifedipine (Procardia Xl) 30 mg DAILY PO ; Start 12/07/18 at 09:00 LUCILA JACKSON MD Dec 06, 2018 17:19
[2018-12-07] VITALS (23 sets, daily range): BP systolic 92–141; BP diastolic 47–77; PULSE 65–164; RESP 14–20
[2018-12-07] MEDS: LEVOTHYROXINE 100 MCG VIAL IV SCH (06:02)
[2018-12-07] MEDS: ALBUTEROL/IPRATROPIUM (NEB) 3 ML AMP HHN SCH ×3 (08:42→20:11)
[2018-12-07] MEDS: NIFEdipine (XL) 30 MG TAB PO SCH (09:00)
[2018-12-07] MEDS: METOPROLOL 25 MG TAB PO SCH ×3 (09:00→22:45)
[2018-12-07] MEDS: PANTOPRAZOLE 40 MG INJ IV SCH (09:40)
--- NOTE | 2018-12-07 10:53 | CONS ---
Date/Time of Note Date/Time of Note DATE: 12/07/18 TIME: 10:50 Assessment/Plan Assessment/Plan Assessment/Plan Assessment and recommendations; 1. Patient admitted with hypoxemia due to pulmonary edema with history of renal failure on chronic hemodialysis. Patient has improved clinically. 2. Chronic anemia and thrombocytopenia. 3. Status post treatment for coagulase-negative staph aureus bacteremia. 4. Status post treatment for UTI. 5. History of hypothyroidism. 6. History of hypertension. Continue current supportive care. Consider discharge. Hemodialysis per roof technician. Result Diagram: 12/07/18 0512 12/07/18 0512 Results 24hrs Laboratory Tests Test 12/06/18 12:25 12/06/18 18:35 12/07/18 05:12 Hemoglobin 10.1 L 10.2 L 9.5 L Hematocrit 30.5 L 30.8 L 28.3 L White Blood Count 7.9 Red Blood Count 3.23 L Mean Corpuscular Volume 87.6 Mean Corpuscular Hemoglobin 29.4 Mean Corpuscular Hemoglobin Concent 33.6 Red Cell Distribution Width 16.2 H Platelet Count 175 Mean Platelet Volume 9.9 Immature Granulocytes % 1.000 H Neutrophils % 71.5 Lymphocytes % 12.2 L Monocytes % 14.2 H Eosinophils % 1.0 Basophils % 0.1 Nucleated Red Blood Cells % 0.0 Immature Granulocytes # 0.080 H Neutrophils # 5.7 Lymphocytes # 1.0 Monocytes # 1.1 H Eosinophils # 0.1 Basophils # 0.0 Nucleated Red Blood Cells # 0.0 Sodium Level 138 Potassium Level 3.6 Chloride Level 99 Carbon Dioxide Level 26 Anion Gap 13 Blood Urea Nitrogen 62 H Creatinine 4.93 #H Est Glomerular Filtrat Rate mL/min Glucose Level 112 Calcium Level 8.6 Consultation Date/Type/Reason Admit Date/Time Nov 26, 2018 at 11:28 Initial Consult Date 11/27/18 Type of Consult Pulmonary Requesting Provider: KTAIE MENDEZ 24 HR Interval Summary Free Text/Dictation Patient's condition is stable. Remains awake and fairly alert. Has remained hemodynamically stable. General exam; elderly female, awake, currently in no distress. Patient is conversant. Exam/Review of Systems Vital Signs Vitals Vital Signs Date Temp Pulse Resp B/P (MAP) Pulse Ox O2 O2 Flow FiO2 Time Delivery Rate 12/07/18 106 09:19 12/07/18 Nasal 3.0 09:10 Cannula 12/07/18 20 99 08:45 12/07/18 97.3 141/62 07:38 (88) Intake and Output 12/06/18 12/06/18 12/07/18 1515:00 23:00 07:00 IntakeIntake Total 540 ml 2000 ml OutputOutput Total 50 ml BalanceBalance 540 ml 1950 ml Exam H EENT exam; supple neck, positive JVD. No lymphadenopathy. Midline trachea. No thyromegaly. Patient does have multiple carious teeth. Chest exam; diminished breath sounds bilaterally. S1-S2 audible, no murmurs. Abdomen exam; soft, no organomegaly. Bowel sounds audible. Extremity exam; no peripheral edema or clubbing. SENIOR COST ANALYST exam; patient awake and responsive appropriately. Exhibiting generalized weakness though. Medications Medications Current Medications Albuterol/ Ipratropium (Duoneb) 3 ml Q6HWA RESP THERAPY HHN Last administered on 12/07/18at 08:42; Admin Dose 3 ML; Start 11/26/18 at 08:00 Acetaminophen (Tylenol Tab) 500 mg Q6H PRN PO MILD PAIN(1-3)OR ELEVATED TEMP Last administered on 12/03/18at 12:15; Admin Dose 500 MG; Start 11/25/18 at 22:30 Albumin Human 50 ml @ 100 mls/hr WITH DIALYSIS PRN IV SBP lower than 90 mm Hg Last administered on 12/05/18at 12:07; Admin Dose 100 MLS/HR; Start 11/26/18 at 14:00 Sodium Chloride (NS) -To prime the dialy... DIRECTED FOR HD PRN IV SBP lower than 90 mm Hg ; Start 11/26/18 at 14:00 IV Flush (NS 10 ml) 10 ml PRN PRN IV IV PROTOCOL; Start 11/26/18 at 14:30 Hydralazine HCl (Apresoline) 20 mg Q6H PRN IV SBP > 160 Last administered on 11/29/18at 12:33; Admin Dose 20 MG; Start 11/28/18 at 07:00 Albuterol/ Ipratropium (Duoneb) 3 ml Q4H RESP THERAPY PRN HHN SHORTNESS OF BREATH Last administered on 12/02/18at 03:49; Admin Dose 3 ML; Start 11/29/18 at 01:00 Metoprolol Tartrate (Lopressor) 25 mg BID PO Last administered on 12/06/18at 20:28; Admin Dose 25 MG; Start 11/30/18 at 21:00 Metoprolol Tartrate (Lopressor) 5 mg Q4H PRN IV HR>110 Hold SBP<100; Start 11/30/18 at 12:30 Heparin Sodium (Porcine) (Heparin (1000 Units/ml)) 2,800 unit AFTER DIALYSIS CATHETER Last administered on 12/05/18at 13:24; Admin Dose 2,800 UNIT; Start 12/01/18 at 11:30 Levothyroxine Sodium (Synthroid Iv) 100 mcg DAILY@06 IV Last administered on 12/07/18at 06:02; Admin Dose 100 MCG; Start 12/02/18 at 06:00 Haloperidol (Haldol) 2 mg Q6H PRN IV hallucinations Last administered on 12/02/18at 03:21; Admin Dose 2 MG; Start 12/01/18 at 19:30 Pantoprazole (Protonix Iv) 40 mg BID IV Last administered on 12/07/18at 09:40; Admin Dose 40 MG; Start 12/04/18 at 06:00 Nifedipine (Procardia Xl) 30 mg DAILY PO ; Start 12/07/18 at 09:00 AVERY URBINA Dec 07, 2018 10:53
--- NOTE | 2018-12-07 10:57 | CONS ---
Date/Time of Note Date/Time of Note DATE: 12/07/18 TIME: 10:53 Assessment/Plan Assessment/Plan Hospital Course IMPRESSION: 1. Shock, on dopamine pressor support at this time with previously preserved EF by most recent echo September 2018 of 60% to 65%.-improved off dopamine and tolerating BP medications 2. Abnormal echocardiogram, assess for acute coronary syndrome. 3. Congestive heart failure, diastolic, acute on chronic, in the setting of renal failure. 4. Renal failure now on HD 5. Anemia-requiring transfusions 6. Hyponatremia-improved 7. Urinary tract infection. 8. Tachycardia-c/w AF/AFL with RVR 9. Bradycardia- to 40's when converts to SR REcc: -Now on tele -Continue abx's and f/u cx data -Follow volume status clsoely -Follow for recurrent significant bradycardia -Continue steroids/bronchodilators -HD for volume removal s/p placement of guanako catheter -For EGD/colonscopy today ok to proceed moderate CV risk -Dose digoxin IVP to improve HR while BB held for procedure today Result Diagram: 12/07/18 0512 12/07/18 0512 Results 24hrs Laboratory Tests Test 12/06/18 12:25 12/06/18 18:35 12/07/18 05:12 Hemoglobin 10.1 L 10.2 L 9.5 L Hematocrit 30.5 L 30.8 L 28.3 L White Blood Count 7.9 Red Blood Count 3.23 L Mean Corpuscular Volume 87.6 Mean Corpuscular Hemoglobin 29.4 Mean Corpuscular Hemoglobin Concent 33.6 Red Cell Distribution Width 16.2 H Platelet Count 175 Mean Platelet Volume 9.9 Immature Granulocytes % 1.000 H Neutrophils % 71.5 Lymphocytes % 12.2 L Monocytes % 14.2 H Eosinophils % 1.0 Basophils % 0.1 Nucleated Red Blood Cells % 0.0 Immature Granulocytes # 0.080 H Neutrophils # 5.7 Lymphocytes # 1.0 Monocytes # 1.1 H Eosinophils # 0.1 Basophils # 0.0 Nucleated Red Blood Cells # 0.0 Sodium Level 138 Potassium Level 3.6 Chloride Level 99 Carbon Dioxide Level 26 Anion Gap 13 Blood Urea Nitrogen 62 H Creatinine 4.93 #H Est Glomerular Filtrat Rate mL/min Glucose Level 112 Calcium Level 8.6 Consultation Date/Type/Reason Admit Date/Time Nov 26, 2018 at 11:28 Initial Consult Date 11/26/18 Type of Consult cardiology Reason for Consultation AF Requesting Provider: KATIE MENDEZ Exam/Review of Systems Vital Signs Vitals Vital Signs Date Temp Pulse Resp B/P (MAP) Pulse Ox O2 O2 Flow FiO2 Time Delivery Rate 12/07/18 106 09:19 12/07/18 Nasal 3.0 09:10 Cannula 12/07/18 20 99 08:45 12/07/18 97.3 141/62 07:38 (88) Intake and Output 12/06/18 12/06/18 12/07/18 1414:59 22:59 06:59 IntakeIntake Total 540 ml 2000 ml OutputOutput Total 50 ml BalanceBalance 540 ml 1950 ml Exam Review of Systems: CONSTITUTIONAL: No fevers, chills. PULMONARY: No sob CARDIOVASCULAR: No chest pain/palpitations GASTROINTESTINAL: No nausea/vomiting. GENITOURINARY: No hematuria/dysuria. MUSCULOSKELETAL: c/o pain at catheter site PSYCHIATRIC: The patient denies depression. NEUROLOGIC: No weakness Constitutional: alert Psych: no complaints Head: normocephalic ENMT: mucosa pink and moist Neck: supple, jvd (9 cm water) Respiratory: diminished breath sounds Cardiovascular: irregular rhythm Gastrointestinal: soft, non-tender Musculoskeletal: muscle tone Extremities: edema (none) 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: other (No focal deficits) Medications Medications Current Medications Albuterol/ Ipratropium (Duoneb) 3 ml Q6HWA RESP THERAPY HHN Last administered on 12/07/18at 08:42; Admin Dose 3 ML; Start 11/26/18 at 08:00 Acetaminophen (Tylenol Tab) 500 mg Q6H PRN PO MILD PAIN(1-3)OR ELEVATED TEMP [place] [facility] administered on 12/03/18at 12:15; Admin Dose 500 MG; Start 11/25/18 at 22:30 Albumin Human 50 ml @ 100 mls/hr WITH DIALYSIS PRN IV SBP lower than 90 mm Hg Last administered on 12/05/18at 12:07; Admin Dose 100 MLS/HR; Start 11/26/18 at 14:00 Sodium Chloride (NS) -To prime the dialy... DIRECTED FOR HD PRN IV SBP lower than 90 mm Hg ; Start 11/26/18 at 14:00 IV Flush (NS 10 ml) 10 ml PRN PRN IV IV PROTOCOL; Start 11/26/18 at 14:30 Hydralazine HCl (Apresoline) 20 mg Q6H PRN IV SBP > 160 Last administered on 11/29/18at 12:33; Admin Dose 20 MG; Start 11/28/18 at 07:00 Albuterol/ Ipratropium (Duoneb) 3 ml Q4H RESP THERAPY PRN HHN SHORTNESS OF BREATH Last administered on 12/02/18at 03:49; Admin Dose 3 ML; Start 11/29/18 at 01:00 Metoprolol Tartrate (Lopressor) 25 mg BID PO Last administered on 12/06/18at 20:28; Admin Dose 25 MG; Start 11/30/18 at 21:00 Metoprolol Tartrate (Lopressor) 5 mg Q4H PRN IV HR>110 Hold SBP<100; Start 11/30/18 at 12:30 Heparin Sodium (Porcine) (Heparin (1000 Units/ml)) 2,800 unit AFTER DIALYSIS CATHETER Last administered on 12/05/18at 13:24; Admin Dose 2,800 UNIT; Start 12/01/18 at 11:30 Levothyroxine Sodium (Synthroid Iv) 100 mcg DAILY@06 IV Last administered on 06:02; Admin Dose 100 MCG; Start 12/02/18 at 06:00 Haloperidol (Haldol) 2 mg Q6H PRN IV hallucinations Last administered on 12/02/18 03:21; Admin Dose 2 MG; Start 12/01/18 at 19:30 Pantoprazole (Protonix Iv) 40 mg BID IV Last administered on 12/07/18at 09:40; Admin Dose 40 MG; Start 12/04/18 at 06:00 Nifedipine (Procardia Xl) 30 mg DAILY PO ; Start 12/07/18 at 09:00 ALVINA GARCIA Dec 07, 2018 10:57
[2018-12-07] MEDS ORDERED: DIGOXIN 500 MCG INJ IV ONE (11:00)
[2018-12-07] MEDS ORDERED: morphine SULFATE/PF (2 MG/2 ML) SYG IV STA (11:16)
--- NOTE | 2018-12-07 11:47 | CONS ---
Date/Time of Note Date/Time of Note DATE: 12/07/18 TIME: 11:40 Assessment/Plan Assessment/Plan Hospital Course Assessment/Impression: - leukocytosis on 12/05/2018 may reflect receipt of pRBC x2 units - leukocytosis prior to that was likely due to steroid 11/25/2018-12/01/2018 - sepsis due to UTI possibly bacteremia although the latter could be a contaminant - UTI due to klebsiella and proteus, resolving - bacteremia 1/2 sets from 11/25/2018 due to coag negative Staph - also a component of SIRS due to acute hypoxic resp failure, acute on chronic renal failure - acute hypoxic resp failure, probably due to CHF exacerbation +/- aspiration pneumonia/pneumonitis, off bipap - CHF exacerbation, improved after HD - bradycardia - acute on chronic renal failure, started on HD on 11/26/2018 - anemia - underlying COPD - CAD - hypothyroidism - TSH elevated and FT4 depressed - gout - eschar of L 4th toe, probably ischemic eschar/ischemia - acute encephalopathy due to sepsis, improving Recommendations: - Monitor Pt off systemic antibiotics, continue respiratory treatment, supportive care - F/u results of EGD/Colonoscopy when completed - Pt completed cefepime (11/30/2018-12/02/2018); Pt previously received ceftriaxone () Management was d/w RN of the patient, and with Dr. Haile Thank you Result Diagram: 12/07/18 0512 12/07/18 0512 Results 24hrs Laboratory Tests Test 12/06/18 12:25 12/06/18 18:35 12/07/18 05:12 Hemoglobin 10.1 L 10.2 L 9.5 L Hematocrit 30.5 L 30.8 L 28.3 L White Blood Count 7.9 Red Blood Count 3.23 L Mean Corpuscular Volume 87.6 Mean Corpuscular Hemoglobin 29.4 Mean Corpuscular Hemoglobin Concent 33.6 Red Cell Distribution Width 16.2 H Platelet Count 175 Mean Platelet Volume 9.9 Immature Granulocytes % 1.000 H Neutrophils % 71.5 Lymphocytes % 12.2 L Monocytes % 14.2 H Eosinophils % 1.0 Basophils % 0.1 Nucleated Red Blood Cells % 0.0 Immature Granulocytes # 0.080 H Neutrophils # 5.7 Lymphocytes # 1.0 Monocytes # 1.1 H Eosinophils # 0.1 Basophils # 0.0 Nucleated Red Blood Cells # 0.0 Sodium Level 138 Potassium Level 3.6 Chloride Level 99 Carbon Dioxide Level 26 Anion Gap 13 Blood Urea Nitrogen 62 H Creatinine 4.93 #H Est Glomerular Filtrat Rate mL/min Glucose Level 112 Calcium Level 8.6 Consultation Date/Type/Reason Admit Date/Time Nov 26, 2018 at 11:28 Initial Consult Date 11/27/18 Type of Consult ID Requesting Provider: KATIE MENDEZ 24 HR Interval Summary Free Text/Dictation Patient being taken for EGD/Colonoscopy. When I arrived she was not in the room but I found her in the hallway by the elevator with transport going to GI lab. Patient was mostly nonverbal but denied ROS questions when I asked her by shaking her head "no" She has been afebrile with no acute issues reported by nursing. New guanako was placed yesterday, she will have HD today after she returns from GI procedure. WBC 7.9. Exam/Review of Systems Vital Signs Vitals Vital Signs Date Temp Pulse Resp B/P (MAP) Pulse Ox O2 O2 Flow FiO2 Time Delivery Rate 12/07/18 97.4 85 19 124/60 98 Nasal 11:31 (81) Cannula 12/07/18 3.0 09:10 Intake and Output 12/06/18 12/06/18 12/07/18 1515:00 23:00 07:00 IntakeIntake Total 540 ml 2000 ml OutputOutput Total 50 ml BalanceBalance 540 ml 1950 ml Allergies Coded Allergies aspirin (Verified Allergy, Unknown, 11/25/18) Exam Patient was seen and assessed next to the elevators as she was being taken down to GI lab. Constitutional: alert, oriented, well developed, frail, other (smiles, keeps her eyes closed, stays nonverbal when I am assessing her) Psych: no complaints, nl mood/affect Head: normocephalic, atraumatic Eyes: nl conjunctiva, nl lids ENMT: nl external ears & nose, nl nasal mucosa & septum, mucosa pink and moist (no thrush noted, poor dentition) Neck: supple, non-tender Respiratory: clear to auscultation, normal air movement (no wheezing; anteriorly) Cardiovascular: regular rate and rhythm, nl pulses Gastrointestinal: soft, non-tender, bowel sounds (normoactive ) Genitourinary - Female: other (+ f/c ) Musculoskeletal: nl extremities to inspection Extremities: normal pulses 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: nl mental status, nl speech (was mainly nonverbal with me today), nl strength Skin: nl turgor, ecchymosis (BUE/hands); No rash or lesions Medications Medications Current Medications Albuterol/ Ipratropium (Duoneb) 3 ml Q6HWA RESP THERAPY HHN Last administered on 12/07/18 08:42; Admin Dose 3 ML; Start 11/26/18 at 08:00 Acetaminophen (Tylenol Tab) 500 mg Q6H PRN PO MILD PAIN(1-3)OR ELEVATED TEMP Last administered on 12/03/18 12:15; Admin Dose 500 MG; Start 11/25/18 at 22:30 Albumin Human 50 ml @ 100 mls/hr WITH DIALYSIS PRN IV SBP lower than 90 mm Hg Last administered on 12/05/18 12:07; Admin Dose 100 MLS/HR; Start 11/26/18 at 14:00 Sodium Chloride (NS) -To prime the dialy... DIRECTED FOR HD PRN IV SBP lower than 90 mm Hg ; Start 11/26/18 at 14:00 IV Flush (NS 10 ml) 10 ml PRN PRN IV IV PROTOCOL; Start 11/26/18 at 14:30 Hydralazine HCl (Apresoline) 20 mg Q6H PRN IV SBP > 160 Last administered on 11/29/18 12:33; Admin Dose 20 MG; Start 11/28/18 at 07:00 Albuterol/ Ipratropium (Duoneb) 3 ml Q4H RESP THERAPY PRN HHN SHORTNESS OF BREATH Last administered on 12/02/18 03:49; Admin Dose 3 ML; Start 11/29/18 at 01:00 Metoprolol Tartrate (Lopressor) 25 mg BID PO Last administered on 12/06/18 20:28; Admin Dose 25 MG; Start 11/30/18 at 21:00 Metoprolol Tartrate (Lopressor) 5 mg Q4H PRN IV HR>110 Hold SBP<100; Start at 12:30 Heparin Sodium (Porcine) (Heparin (1000 Units/ml)) 2,800 unit AFTER DIALYSIS CATHETER Last administered on 1/12/19at 13:24; Admin Dose 2,800 UNIT; Start 12/01/18 at 11:30 Levothyroxine Sodium (Synthroid Iv) 100 mcg DAILY@06 IV Last administered on 12/07/18at 06:02; Admin Dose 100 MCG; Start 12/02/18 at 06:00 Haloperidol (Haldol) 2 mg Q6H PRN IV hallucinations Last administered on 12/02/18at 03:21; Admin Dose 2 MG; Start 12/01/18 at 19:30 Pantoprazole (Protonix Iv) 40 mg BID IV Last administered on 12/07/18at 09:40; Admin Dose 40 MG; Start 12/04/18 at 06:00 Nifedipine (Procardia Xl) 30 mg DAILY PO ; Start 12/07/18 at 09:00 Imaging Imaging No new imaging. PRINCE SMITH NP Dec 07, 2018 11:47
--- NOTE | 2018-12-07 12:45 | PREAC ---
Date/Time of Note Date/Time of Note DATE: 12/07/18 TIME: 12:42 Anesthesia Eval and Record Evaluation Time Pre-Procedure Interview DATE: 12/07/18 TIME: 12:42 Age 88 Sex female NPO: 8 hrs Preoperative diagnosis GI bleeding Planned procedure EGD, colonoscopy Past Medical History Past Medical History: Includes Cardio: CHF Pulm: Other (res failure) Renal: CKD Surgery & Anesthesia Issues No known issue Meds Anticoagulation: No Beta Vivian within 24 hr: No Reason Beta Vivian not given: Pt. not on B-Vivian Reported Medications Clopidogrel Bisulfate* (Clopidogrel Bisulfate*) 75 Mg Tablet, 75 MG PO DAILY, #30 TAB 11/25/18 Furosemide* (Furosemide*) 40 Mg Tablet, 40 MG PO BID, TAB HOLD FOR SBP<110 11/25/18 Mupirocin* (Bactroban*) 2% -22 Gram Oint...g., 1 APPLIC TOP BID, #1 TUB SITE OF APPLICATION: 11/25/18 Pantoprazole* (Pantoprazole*) 40 Mg Tablet.dr, 40 MG PO AC BREAKFAST, TAB 11/25/18 Prednisone* (Prednisone*) 20 Mg Tab, 40 MG PO DAILY, TAB FOR 4 DAYS,START DATE 11/23/18, END DATE 11/27/18 11/25/18 Guaifenesin-Dextromethorphan* (Robitussin* DM) 100MG/10MG/5ML Syrup, 10 ML PO Q4H PRN for COUGH, ML 02/15/18 Gabapentin* (Gabapentin*) 300 Mg Capsule, 300 MG PO QHS, #60 CAP 02/15/18 Pramipexole* (Mirapex*) 0.5 Mg Tablet, 0.5 MG PO QHS, TAB 02/15/18 Hydralazine Hcl* (Hydralazine Hcl*) 25 Mg Tab, 25 MG PO Q6H PRN for FOR BP>160/95, #60 TAB 02/15/18 Tamsulosin Hcl* (Flomax*) 0.4 Mg Cap.er.24h, 0.4 MG PO DAILY, CAP 02/15/18 Ferrous Sulfate* (Ferrous Sulfate*) 325 Mg Tabec, 325 MG PO DAILY, TAB 02/15/18 Bisacodyl* (Bisacodyl*) 10 Mg Supp, 10 MG MO Q48H, SUPP 02/15/18 Docusate Sodium* (Docusate Sodium*) 100 Mg Capsule, 100 MG PO BID, #60 CAP 02/15/18 Atorvastatin Calcium (Atorvastatin Calcium) 10 Mg Tablet, 10 MG PO QHS, #30 TAB 02/15/18 Aspirin* (Aspirin* EC) 325 Mg Tab, 325 MG PO DAILY, TAB 02/15/18 Amiodarone Hcl* (Amiodarone Hcl*) 200 Mg Tablet, 200 MG PO DAILY, #30 TAB HOLD IF APICAL PULSE IS<60 02/15/18 Allopurinol* (Allopurinol*) 100 Mg Tablet, 200 MG PO DAILY, TAB 02/15/18 Acetaminophen* (Acetaminophen*) 325 Mg Tablet, 650 MG PO Q4H PRN for MILD PAIN LEVEL 1-3, #30 TAB AND FOR FEVER 02/15/18 Current Medications Albuterol/ Ipratropium (Duoneb) 3 ml Q6HWA RESP THERAPY HHN Last administered on 12/07/18at 08:42; Admin Dose 3 ML; Start 11/26/18 at 08:00 Acetaminophen (Tylenol Tab) 500 mg Q6H PRN PO MILD PAIN(1-3)OR ELEVATED TEMP Last administered on 12/03/18at 12:15; Admin Dose 500 MG; Start 11/25/18 at 22:30 Albumin Human 50 ml @ 100 mls/hr WITH DIALYSIS PRN IV SBP lower than 90 mm Hg Last administered on 12/05/18at 12:07; Admin Dose 100 MLS/HR; Start 11/26/18 at 14:00 Sodium Chloride (NS) -To prime the dialy... DIRECTED FOR HD PRN IV SBP lower than 90 mm Hg ; Start 11/26/18 at 14:00 IV Flush (NS 10 ml) 10 ml PRN PRN IV IV PROTOCOL; Start 11/26/18 at 14:30 Hydralazine HCl (Apresoline) 20 mg Q6H PRN IV SBP > 160 Last administered on 11/29/18at 12:33; Admin Dose 20 MG; Start 11/28/18 at 07:00 Albuterol/ Ipratropium (Duoneb) 3 ml Q4H RESP THERAPY PRN HHN SHORTNESS OF BR EATH Last administered on 12/02/18at 03:49; Admin Dose 3 ML; Start 11/29/18 at 01:00 Metoprolol Tartrate (Lopressor) 25 mg BID PO Last administered on 12/06/18at 20:28; Admin Dose 25 MG; Start 11/30/18 at 21:00 Metoprolol Tartrate (Lopressor) 5 mg Q4H PRN IV HR>110 Hold SBP<100; Start 11/30/18 at 12:30 Heparin Sodium (Porcine) (Heparin (1000 Units/ml)) 2,800 unit AFTER DIALYSIS CATHETER Last administered on 12/05/18at 13:24; Admin Dose 2,800 UNIT; Start 12/01/18 at 11:30 Levothyroxine Sodium (Synthroid Iv) 100 mcg DAILY@06 IV Last administered on 12/07/18at 06:02; Admin Dose 100 MCG; Start 12/02/18 at 06:00 Haloperidol (Haldol) 2 mg Q6H PRN IV hallucinations Last administered on 12/02/18at 03:21; Admin Dose 2 MG; Start 12/01/18 at 19:30 Pantoprazole (Protonix Iv) 40 mg BID IV Last administered on 12/07/18at 09:40; Admin Dose 40 MG; Start 12/04/18 at 06:00 Nifedipine (Procardia Xl) 30 mg DAILY PO ; Start 12/07/18 at 09:00 Meds reviewed: No Allergies Coded Allergies: aspirin (Verified Allergy, Unknown, 11/25/18) Allergies Reviewed: Yes Labs/Studies Labs Reviewed: Reviewed by anesthesiologist Result Diagram: 12/07/18 0512 12/07/18 0512 Laboratory Tests 12/07/18 05:12 test: N/A Studies: ECG (A fib), CXR (congestion) Pre-procedure Exam Last vitals Vital Signs Date Temp Pulse Resp B/P (MAP) Pulse Ox O2 O2 Flow FiO2 Time Delivery Rate 12/07/18 99.1 92 14 111/56 100 Room Air 12:05 (74) 12/07/18 3.0 09:10 Airway: Adequate mouth opening Mallampati: Mallampati I Teeth: Normal Lung: Normal Heart: Normal ASA Physical Status ASA physical status: 3 Emergency: None Planned Anesthetic General/MAC: MAC Planned Pain Management Parenteral pain med Pre-operative Attestations Prior to commencing anesthesia and surgery, the patient was re-evaluated, there was verification of: *The patient's identity *The results of appropriate recent lab work and preoperative vital signs *The above evaluation not changing prior to induction *Anesthetic plan, risk benefits, alternative and complications discussed with patient/family; questions answered; patient/family understands, accepts and wishes to proceed. KENYETTA PAGAN MD Dec 07, 2018 12:45
[2018-12-07] MEDS ORDERED: PROPOFOL 20 ML ONE (12:46)
[2018-12-07] MEDS ORDERED: FENTAnyl 50 MCG/ML VIAL ONE (12:46)
--- NOTE | 2018-12-07 12:46 | CONS ---
Date/Time of Note Date/Time of Note DATE: 12/07/18 TIME: 12:46 Assessment/Plan Assessment/Plan Assessment/Plan 1. Oliguric Acute kindey injury on CKD III due to ATN from septic shock, 2. Acute uremic encephalopathy 3. Acute hyperkalemia- resolved 4. Severe metabolic acidosis 5. Septic shock on pressors 2/2 UTI and bacteremia 6. acute hypoxemic respiraotry failure on BIPAP 7. acute on chronic,systolic and diastolic heart failure 8. H/o HTN 9. H/o COPD 10. Acute GI bleeding s/p 3 U PRBC , s/p EGD and Colonoscopy Plan: started on HD on 11/26/17- HD ordered for today Guanako catheter did not work well, s/p Removal and placement of new guanako on 12/04/18- Hb 9.9, now stable IV abx as per PMD, renally dose all abx and monitor electrolytes will follow up Result Diagram: 12/07/18 0512 12/07/18 0512 Results 24hrs Laboratory Tests Test 12/06/18 18:35 12/07/18 05:12 Hemoglobin 10.2 L 9.5 L Hematocrit 30.8 L 28.3 L White Blood Count 7.9 Red Blood Count 3.23 L Mean Corpuscular Volume 87.6 Mean Corpuscular Hemoglobin 29.4 Mean Corpuscular Hemoglobin Concent 33.6 Red Cell Distribution Width 16.2 H Platelet Count 175 Mean Platelet Volume 9.9 Immature Granulocytes % 1.000 H Neutrophils % 71.5 Lymphocytes % 12.2 L Monocytes % 14.2 H Eosinophils % 1.0 Basophils % 0.1 Nucleated Red Blood Cells % 0.0 Immature Granulocytes # 0.080 H Neutrophils # 5.7 Lymphocytes # 1.0 Monocytes # 1.1 H Eosinophils # 0.1 Basophils # 0.0 Nucleated Red Blood Cells # 0.0 Sodium Level 138 Potassium Level 3.6 Chloride Level 99 Carbon Dioxide Level 26 Anion Gap 13 Blood Urea Nitrogen 62 H Creatinine 4.93 #H Est Glomerular Filtrat Rate mL/min Glucose Level 112 Calcium Level 8.6 Consultation Date/Type/Reason Admit Date/Time Nov 26, 2018 at 11:28 Initial Consult Date 11/26/18 Type of Consult NEPHROLOGY Requesting Provider: KATIE MENDEZ Exam/Review of Systems Vital Signs Vitals Vital Signs Date Temp Pulse Resp B/P (MAP) Pulse Ox O2 O2 Flow FiO2 Time Delivery Rate 12/07/18 99.1 92 14 111/56 100 Room Air 12:05 (74) 12/07/18 3.0 09:10 Intake and Output 12/06/18 12/06/18 12/07/18 1515:00 23:00 07:00 IntakeIntake Total 540 ml 2000 ml OutputOutput Total 50 ml BalanceBalance 540 ml 1950 ml Medications Medications Current Medications Albuterol/ Ipratropium (Duoneb) 3 ml Q6HWA RESP THERAPY HHN Last administered on 12/07/18at 08:42; Admin Dose 3 ML; Start 11/26/18 at 08:00 Acetaminophen (Tylenol Tab) 500 mg Q6H PRN PO MILD PAIN(1-3)OR ELEVATED TEMP Last administered on 12/03/18at 12:15; Admin Dose 500 MG; Start 11/25/18 at 22:30 Albumin Human 50 ml @ 100 mls/hr WITH DIALYSIS PRN IV SBP lower than 90 mm Hg Last administered on 12/05/18at 12:07; Admin Dose 100 MLS/HR; Start 11/26/18 at 14:00 Sodium Chloride (NS) -To prime the dialy... DIRECTED FOR HD PRN IV SBP lower than 90 mm Hg ; Start 11/26/18 at 14:00 IV Flush (NS 10 ml) 10 ml PRN PRN IV IV PROTOCOL; Start 11/26/18 at 14:30 Hydralazine HCl (Apresoline) 20 mg Q6H PRN IV SBP > 160 Last administered on 11/29/18at 12:33; Admin Dose 20 MG; Start 11/28/18 at 07:00 Albuterol/ Ipratropium (Duoneb) 3 ml Q4H RESP THERAPY PRN HHN SHORTNESS OF BREATH Last administered on 12/02/18at 03:49; Admin Dose 3 ML; Start 11/29/18 at 01:00 Metoprolol Tartrate (Lopressor) 25 mg BID PO Last administered on 12/06/18at 20:28; Admin Dose 25 MG; Start 11/30/18 at 21:00 Metoprolol Tartrate (Lopressor) 5 mg Q4H PRN IV HR>110 Hold SBP<100; Start 11/30/18 at 12:30 Heparin Sodium (Porcine) (Heparin (1000 Units/ml)) 2,800 unit AFTER DIALYSIS CATHETER Last administered on 12/05/18at 13:24; Admin Dose 2,800 UNIT; Start 12/01/18 at 11:30 Levothyroxine Sodium (Synthroid Iv) 100 mcg DAILY@06 IV Last administered on 12/07/18at 06:02; Admin Dose 100 MCG; Start 12/02/18 at 06:00 Haloperidol (Haldol) 2 mg Q6H PRN IV hallucinations Last administered on 12/02/18at 03:21; Admin Dose 2 MG; Start 12/01/18 at 19:30 Pantoprazole (Protonix Iv) 40 mg BID IV Last administered on 12/07/18at 09:40; Admin Dose 40 MG; Start 12/04/18 at 06:00 Nifedipine (Procardia Xl) 30 mg DAILY PO ; Start 12/07/18 at 09:00 GI HARTMAN MD Dec 07, 2018 12:46
[2018-12-07] MEDS ORDERED: ONDANSETRON 4 MG INJ IV PRN (13:00)
[2018-12-07] MEDS ORDERED: PHENYLephrine (100 MCG/ML) 5ML SYG ONE (13:01)
--- NOTE | 2018-12-07 14:04 | PN ---
Date/Time of Note Date/Time of Note DATE: 12/07/18 TIME: 14:02 Assessment/Plan VTE Prophylaxis Risk score (from [facility] [place])>0 risk: 9 SCD applied (from [facility]): Yes Pharmacological prophylaxis: NA/contraindicated Pharm contraindication: bleeding Lines/Catheters IV Catheter Type (from [facility]): ROBIN CATH Urinary Cath still in place: Yes Reason Cath still needed: urinary retention Assessment/Plan Hospital Course Patient was taken to GI lab for EGD and colonoscopy, no acute events reported prior to procedure. Assessment/Plan -Anemia secondary to GI bleed. Protonix IV. Heparin is stopped. Transfuse as needed. Dr. Lewis is following in gastroenterology consultation. -Acute respiratory failure. Dr. Garcia is following in pulmonology consultation. -Sepsis secondary to UTI. Continue antibiotics per ID. Dr. Jordan is f ollowing in infection disease consultation. -S/p septic and cardiogenic shock -Left lower lobe pneumonia -Acute on chronic systolic and diastolic congestive heart failure. Dr. Iraheta is following in cardiology consultation. -ARF on CKD. Patient started on hemodialysis during this admission. Continue hemodialysis per nephrology. Dr Hill is following in nephrology consultation. -Pulmonary edema -Hypothyroidism, continue Synthroid. -DNR status Further recommendations based on clinical course. Plan of care discussed with Dr. Olivier. Result Diagram: 12/07/18 0512 12/07/18 0512 Results 24hrs Laboratory Tests Test 12/06/18 18:35 12/07/18 05:12 Hemoglobin 10.2 L 9.5 L Hematocrit 30.8 L 28.3 L White Blood Count 7.9 Red Blood Count 3.23 L Mean Corpuscular Volume 87.6 Mean Corpuscular Hemoglobin 29.4 Mean Corpuscular Hemoglobin Concent 33.6 Red Cell Distribution Width 16.2 H Platelet Count 175 Mean Platelet Volume 9.9 Immature Granulocytes % 1.000 H Neutrophils % 71.5 Lymphocytes % 12.2 L Monocytes % 14.2 H Eosinophils % 1.0 Basophils % 0.1 Nucleated Red Blood Cells % 0.0 Immature Granulocytes # 0.080 H Neutrophils # 5.7 Lymphocytes # 1.0 Monocytes # 1.1 H Eosinophils # 0.1 Basophils # 0.0 Nucleated Red Blood Cells # 0.0 Sodium Level 138 Potassium Level 3.6 Chloride Level 99 Carbon Dioxide Level 26 Anion Gap 13 Blood Urea Nitrogen 62 H Creatinine 4.93 #H Est Glomerular Filtrat Rate mL/min Glucose Level 112 Calcium Level 8.6 Exam/Review of Systems Vital Signs Vitals Vital Signs Date Temp Pulse Resp B/P (MAP) Pulse Ox O2 O2 Flow FiO2 Time Delivery Rate 12/07/18 89 20 120/74 99 Nasal 2.0 13:55 (89) Cannula 12/07/18 98.3 13:38 Intake and Output 12/06/18 12/06/18 12/07/18 1515:00 23:00 07:00 IntakeIntake Total 540 ml 2000 ml OutputOutput Total 50 ml BalanceBalance 540 ml 1950 ml Medications Medications Current Medications Albuterol/ Ipratropium (Duoneb) 3 ml Q6HWA RESP THERAPY HHN Last administered on 12/07/18at 08:42; Admin Dose 3 ML; Start 11/26/18 at 08:00 Acetaminophen (Tylenol Tab) 500 mg Q6H PRN PO MILD PAIN(1-3)OR ELEVATED TEMP Last administered on 12/03/18 12:15; Admin Dose 500 MG; Start 11/25/18 at 22:30 Albumin Human 50 ml @ 100 mls/hr WITH DIALYSIS PRN IV SBP lower than 90 mm Hg Last administered on 12/05/18 12:07; Admin Dose 100 MLS/HR; Start 11/26/18 at 14:00 Sodium Chloride (NS) -To prime the dialy... DIRECTED FOR HD PRN IV SBP lower than 90 mm Hg ; Start 11/26/18 at 14:00 IV Flush (NS 10 ml) 10 ml PRN PRN IV IV PROTOCOL; Start 11/26/18 at 14:30 Hydralazine HCl (Apresoline) 20 mg Q6H PRN IV SBP > 160 Last administered on 11/29/18 12:33; Admin Dose 20 MG; Start 11/28/18 at 07:00 Albuterol/ Ipratropium (Duoneb) 3 ml Q4H RESP THERAPY PRN HHN SHORTNESS OF BREATH Last administered on 12/02/18 03:49; Admin Dose 3 ML; Start 11/29/18 at 01:00 Metoprolol Tartrate (Lopressor) 25 mg BID PO Last administered on 12/06/18at 20:28; Admin Dose 25 MG; Start 11/30/18 at 21:00 Metoprolol Tartrate (Lopressor) 5 mg Q4H PRN IV HR>110 Hold SBP<100; Start 11/30/18 at 12:30 Heparin Sodium (Porcine) (Heparin (1000 Units/ml)) 2,800 unit AFTER DIALYSIS CATHETER Last administered on 12/05/18 13:24; Admin Dose 2,800 UNIT; Start 12/01/18 at 11:30 Levothyroxine Sodium (Synthroid Iv) 100 mcg DAILY@06 IV Last administered on 12/07/18 06:02; Admin Dose 100 MCG; Start 12/02/18 at 06:00 Haloperidol (Haldol) 2 mg Q6H PRN IV hallucinations Last administered on 12/02/18 03:21; Admin Dose 2 MG; Start 12/01/18 at 19:30 Pantoprazole (Protonix Iv) 40 mg BID IV Last administered on 12/07/18at 09:40; Admin Dose 40 MG; Start 12/04/18 at 06:00 Nifedipine (Procardia Xl) 30 mg DAILY PO ; Start 12/07/18 at 09:00 Ondansetron HCl (Zofran Inj) 4 mg PACU ORDER PRN IV NAUSEA AND/OR VOMITING; Start 12/07/18 at 13:00; Stop 12/07/18 at 18:00 EDWAR VARGAS Dec 07, 2018 14:04
[2018-12-07] MEDS: PANTOPRAZOLE (EC) 40 MG TAB PO SCH (18:02)
--- NOTE | 2018-12-07 21:42 | PAC ---
Date/Time of Note Date/Time of Note DATE: 12/07/18 TIME: 21:41 Post-Anesthesia Notes Post-Anesthesia Note Last documented vital signs Vital Signs Date Temp Pulse Resp B/P (MAP) Pulse Ox O2 O2 Flow FiO2 Time Delivery Rate 12/07/18 98.1 80 18 129/70 95 Nasal 2.0 20:12 Cannula 12/07/18 98.0 132/60 20:00 (84) Activity: WNL Respiratory function: WNL Cardiovascular function: WNL Mental status: Baseline Pain reasonably controlled: Yes Hydration appropriate: Yes Nausea/Vomiting absent: No KENYETTA PAGAN MD Dec 07, 2018 21:42
[2018-12-07] MEDS ORDERED: ALTEPLASE (CATHFLO) 2 MG INJ CATHETER ONE (22:30)
[2018-12-07] MEDS: ACETAMINOPHEN 500 MG TAB PO PRN (22:43)
[2018-12-08] VITALS (37 sets, daily range): BP systolic 98–141; BP diastolic 46–61; PULSE 0–79; RESP 11–20
[2018-12-08] MEDS: LEVOTHYROXINE 150 MCG TAB PO SCH (06:29)
[2018-12-08] MEDS: PANTOPRAZOLE (EC) 40 MG TAB PO SCH ×2 (06:29→18:00)
--- NOTE | 2018-12-08 07:57 | PN ---
Date/Time of Note Date/Time of Note DATE: 12/08/18 TIME: 07:52 Assessment/Plan VTE Prophylaxis Risk score (from [facility]0 risk: 9 SCD applied (from [facility]): Yes Pharmacological prophylaxis: NA/contraindicated Pharm contraindication: bleeding Lines/Catheters IV Catheter Type (from [facility]): Mic cath Urinary Cath still in place: Yes Reason Cath still needed: urinary retention Assessment/Plan Hospital Course 88 yo female presented with SOB, found to have septic and cardiogenic shock, stable on telemetry floor with acute drop in HH with positive FOB, S/P EGD/colon 12/07/18 1. Anemia -acute on chronic secondary to blood loss -pos FOB -hematochezia, no melena 2. Acute respiratory failure -improved -followed by Dr. Garcia 3. VRE in urine -pt was septic, stable now, ID following 4. S/P septic and cardiogenic shock 5. CKD III with acute renal failure -started on HD during this admission. -Dr Hill, nephrology 6. Acute on chronic diastolic CHF -Dr Iraheta from cardiology 7. Left lower lobe pneumonia 8. Hypothyroidism -management by primary 9. DNR status 10. External hemorrhoid 11. Moderate diverticulosis 12. Polyp, s/p polypectomy 13. Extensive esophageal ulcerations 14. 5cm hiatal hernia 15. Erosive gastritis 16. Moderate duodenitis Plan: High fiber diet PPI BID Pending pathology Diet as tolerated Pt examined and plan of care discussed with Dr. Lewis Result Diagram: 12/08/18 0536 12/08/18 0536 Results 24hrs Laboratory Tests Test 12/07/18 14:38 12/07/18 19:31 12/08/18 05:36 Hemoglobin 9.9 L 9.9 L 8.6 L Hematocrit 30.5 L 29.8 L 26.1 L White Blood Count 6.9 Red Blood Count 2.91 L Mean Corpuscular Volume 89.7 Mean Corpuscular Hemoglobin 29.6 Mean Corpuscular Hemoglobin Concent 33.0 Red Cell Distribution Width 16.4 H Platelet Count 187 Mean Platelet Volume 9.9 Immature Granulocytes % 0.900 H Neutrophils % 70.8 Lymphocytes % 14.0 L Monocytes % 12.4 H Eosinophils % 1.6 Basophils % 0.3 Nucleated Red Blood Cells % 0.0 Immature Granulocytes # 0.060 H Neutrophils # 4.9 Lymphocytes # 1.0 Monocytes # 0.9 Eosinophils # 0.1 Basophils # 0.0 Nucleated Red Blood Cells # 0.0 Sodium Level 140 Potassium Level 4.6 Chloride Level 99 Carbon Dioxide Level 25 Anion Gap 16 H Blood Urea Nitrogen 72 H Creatinine 6.08 H Est Glomerular Filtrat Rate mL/min Glucose Level 106 Calcium Level 8.7 Subjective 24 Hr Interval Summary Free Text/Dictation Pt denies N/V and abd pain. She c/o BLE pain Exam/Review of Systems Vital Signs Vitals Vital Signs Date Temp Pulse Resp B/P (MAP) Pulse Ox O2 O2 Flow FiO2 Time Delivery Rate 12/08/18 98.1 64 20 135/61 100 07:28 (85) 12/08/18 2.0 03:40 12/07/18 Room Air 23:11 Intake and Output 12/07/18 12/07/18 12/08/18 1515:00 23:00 07:00 IntakeIntake Total 0 ml BalanceBalance 0 ml Exam Constitutional: alert, oriented Psych: no complaints Head: normocephalic Eyes: nl sclera, PERRL ENMT: mucosa pink and moist Respiratory: diminished breath sounds Cardiovascular: regular rate and rhythm Gastrointestinal: soft, non-tender Extremities: other (Mild BLE) 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: nl mental status Medications Medications Current Medications Albuterol/ Ipratropium (Duoneb) 3 ml Q6HWA RESP THERAPY HHN Last administered on 12/07/18at 20:11; Admin Dose 3 ML; Start 11/26/18 at 08:00 Acetaminophen (Tylenol Tab) 500 mg Q6H PRN PO MILD PAIN(1-3)OR ELEVATED TEMP Last administered on 12/07/18at 22:43; Admin Dose 500 MG; Start 11/25/18 at 22:30 Albumin Human 50 ml @ 100 mls/hr WITH DIALYSIS PRN IV SBP lower than 90 mm Hg Last administered on 12/05/18at 12:07; Admin Dose 100 MLS/HR; Start 11/26/18 at 14:00 Sodium Chloride (NS) -To prime the dialy... DIRECTED FOR HD PRN IV SBP lower than 90 mm Hg ; Start 11/26/18 at 14:00 IV Flush (NS 10 ml) 10 ml PRN PRN IV IV PROTOCOL; Start 11/26/18 at 14:30 Hydralazine HCl (Apresoline) 20 mg Q6H PRN IV SBP > 160 Last administered on 11/29/18 12:33; Admin Dose 20 MG; Start 11/28/18 at 07:00 Albuterol/ Ipratropium (Duoneb) 3 ml Q4H RESP THERAPY PRN HHN SHORTNESS OF BREATH Last administered on 12/02/18 03:49; Admin Dose 3 ML; Start 11/29/18 at 01:00 Metoprolol Tartrate (Lopressor) 25 mg BID PO Last administered on 12/07/18 22:45; Admin Dose 25 MG; Start 11/30/18 at 21:00 Metoprolol Tartrate (Lopressor) 5 mg Q4H PRN IV HR>110 Hold SBP<100; Start 11/30/18 at 12:30 Heparin Sodium (Porcine) (Heparin (1000 Units/ml)) 2,800 unit AFTER DIALYSIS CATHETER Last administered on 12/05/18 13:24; Admin Dose 2,800 UNIT; Start 12/01/18 at 11:30 Haloperidol (Haldol) 2 mg Q6H PRN IV hallucinations Last administered on 12/02/18 03:21; Admin Dose 2 MG; Start 12/01/18 at 19:30 Nifedipine (Procardia Xl) 30 mg DAILY PO ; Start 12/07/18 at 09:00 Pantoprazole (Protonix Tab) 40 mg BID@0600,1800 PO Last administered on 12/08/18 06:29; Admin Dose 40 MG; Start 12/07/18 at 18:00 Levothyroxine Sodium (Synthroid) 150 mcg DAILY@06 PO Last administered on 12/08/18 06:29; Admin Dose 150 MCG; Start 12/08/18 at 06:00 LAURA HERNANDEZ Dec 08, 2018 07:57
[2018-12-08] MEDS: NIFEdipine (XL) 30 MG TAB PO SCH (08:04)
[2018-12-08] MEDS: METOPROLOL 25 MG TAB PO SCH ×2 (08:05→21:19)
--- NOTE | 2018-12-08 08:13 | CONS ---
Date/Time of Note Date/Time of Note DATE: 12/08/18 TIME: 08:11 Assessment/Plan Assessment/Plan Assessment/Plan 1. Shock, on dopamine pressor support at this time with previously preserved EF by most recent echo September 2018 of 60% to 65%.-improved off dopamine and tolerating BP medications - better now. 2. Abnormal echocardiogram, assess for acute coronary syndrome - no CP noted - no intervention planned now. 3. Congestive heart failure, diastolic, acute on chronic, in the setting of renal failure - acute on chronic, + some urine output - HD to follow. 4. Renal failure now on HD - renal team on case. 5. Anemia-requiring transfusions - no blood tx planned. 6. Hyponatremia-improved 7. Urinary tract infection - on anti-Bx. 8. Tachycardia-c/w AF/AFL with RVR - now in sinus. 9. Bradycardia- to 40's when converts to SR Result Diagram: 12/08/18 0536 12/08/18 0536 Results 24hrs Laboratory Tests Test 12/07/18 14:38 12/07/18 19:31 12/08/18 05:36 Hemoglobin 9.9 L 9.9 L 8.6 L Hematocrit 30.5 L 29.8 L 26.1 L White Blood Count 6.9 Red Blood Count 2.91 L Mean Corpuscular Volume 89.7 Mean Corpuscular Hemoglobin 29.6 Mean Corpuscular Hemoglobin Concent 33.0 Red Cell Distribution Width 16.4 H Platelet Count 187 Mean Platelet Volume 9.9 Immature Granulocytes % 0.900 H Neutrophils % 70.8 Lymphocytes % 14.0 L Monocytes % 12.4 H Eosinophils % 1.6 Basophils % 0.3 Nucleated Red Blood Cells % 0.0 Immature Granulocytes # 0.060 H Neutrophils # 4.9 Lymphocytes # 1.0 Monocytes # 0.9 Eosinophils # 0.1 Basophils # 0.0 Nucleated Red Blood Cells # 0.0 Sodium Level 140 Potassium Level 4.6 Chloride Level 99 Carbon Dioxide Level 25 Anion Gap 16 H Blood Urea Nitrogen 72 H Creatinine 6.08 H Est Glomerular Filtrat Rate mL/min Glucose Level 106 Calcium Level 8.7 Consultation Date/Type/Reason Admit Date/Time Nov 26, 2018 at 11:28 Initial Consult Date 11/27/18 Requesting Provider: KATIE MENDEZ 24 HR Interval Summary Free Text/Dictation NO acute events - no tachyarrhythmia now - remove fluid as tolerated. ROS: No fever, no chills, no nausea, no vomiting, no diarrhea/constipation No recent weight changes No chest pain, no PND, no orthopnea - + SOB, better now No dizziness, blurred vision No thirst, no heat or cold intolerance Exam/Review of Systems Vital Signs Vitals Vital Signs Date Temp Pulse Resp B/P (MAP) Pulse Ox O2 O2 Flow FiO2 Time Delivery Rate 12/08/18 98.1 64 20 135/61 100 07:28 (85) 12/08/18 2.0 03:40 12/07/18 Room Air 23:11 Intake and Output 12/07/18 12/07/18 12/08/18 1515:00 23:00 07:00 IntakeIntake Total 0 ml BalanceBalance 0 ml Exam General: WN/WD/NAD, AOx 1-2 HEENT: Unicetric/atraumatic/EOMI (follow commands) NECK: JVD elevated, no thyromegaly Lymph: no lymphadenopathy HEART: regular with no S3, II/ systolic murmur at apex, PMI L LUNGS: Coarse sounds ABD: soft, NT, ND, +BS : Intact Neuro: non focal SKIN: chronic changes EXT: trace edema, bruising Medications Medications Current Medications Albuterol/ Ipratropium (Duoneb) 3 ml Q6HWA RESP THERAPY HHN Last administered on 12/07/18at 20:11; Admin Dose 3 ML; Start 11/26/18 at 08:00 Acetaminophen (Tylenol Tab) 500 mg Q6H PRN PO MILD PAIN(1-3)OR ELEVATED TEMP Last administered on 12/07/18at 22:43; Admin Dose 500 MG; Start 11/25/18 at 22:30 Albumin Human 50 ml @ 100 mls/hr WITH DIALYSIS PRN IV SBP lower than 90 mm Hg Last administered on 12/05/18at 12:07; Admin Dose 100 MLS/HR; Start 11/26/18 at 14:00 Sodium Chloride (NS) -To prime the dialy... DIRECTED FOR HD PRN IV SBP lower than 90 mm Hg ; Start 11/26/18 at 14:00 IV Flush (NS 10 ml) 10 ml PRN PRN IV IV PROTOCOL; Start 11/26/18 at 14:30 Hydralazine HCl (Apresoline) 20 mg Q6H PRN IV SBP > 160 Last administered on 11/29/18 12:33; Admin Dose 20 MG; Start 11/28/18 at 07:00 Albuterol/ Ipratropium (Duoneb) 3 ml Q4H RESP THERAPY PRN HHN SHORTNESS OF BREATH Last administered on 12/02/18 03:49; Admin Dose 3 ML; Start 11/29/18 at 01:00 Metoprolol Tartrate (Lopressor) 25 mg BID PO Last administered on 12/08/18 08:05; Admin Dose 25 MG; Start 11/30/18 at 21:00 Metoprolol Tartrate (Lopressor) 5 mg Q4H PRN IV HR>110 Hold SBP<100; Start 11/30/18 at 12:30 Heparin Sodium (Porcine) (Heparin (1000 Units/ml)) 2,800 unit AFTER DIALYSIS CATHETER Last administered on 12/05/18 13:24; Admin Dose 2,800 UNIT; Start 12/01/18 at 11:30 Haloperidol (Haldol) 2 mg Q6H PRN IV hallucinations Last administered on 12/02/18 03:21; Admin Dose 2 MG; Start 12/01/18 at 19:30 Nifedipine (Procardia Xl) 30 mg DAILY PO Last administered on 12/08/18 08:04; Admin Dose 30 MG; Start 12/07/18 at 09:00 Pantoprazole (Protonix Tab) 40 mg BID@0600,1800 PO Last administered on 12/08/18 06:29; Admin Dose 40 MG; Start 12/07/18 at 18:00 Levothyroxine Sodium (Synthroid) 150 mcg DAILY@06 PO Last administered on 12/08/18 06:29; Admin Dose 150 MCG; Start 12/08/18 at 06:00 MICHELLE COLEMAN MD Dec 08, 2018 08:13
[2018-12-08] MEDS: ALBUTEROL/IPRATROPIUM (NEB) 3 ML AMP HHN SCH ×3 (08:30→20:00)
[2018-12-08] MEDS ORDERED: LIDOCAINE 1% (MPF) 30 ML INJ ONE (09:09)
[2018-12-08] MEDS ORDERED: HEPARIN 1000 UNITS/ML 10 ML INJ ONE (09:09)
--- NOTE | 2018-12-08 10:07 | PREAC ---
Date/Time of Note Date/Time of Note DATE: 12/08/18 TIME: 10:01 Anesthesia Eval and Record Evaluation Time Pre-Procedure Interview DATE: 12/08/18 TIME: 10:01 Age 88 Sex female NPO: 8 hrs Preoperative diagnosis ESRD Planned procedure Permacath placement Past Medical History Past Medical History: Includes Cardio: HTN, Dyslipidemia Endo: Diabetes, Hypothyroid Pulm: COPD Renal: CKD, ESRD on dialysis GI: Morbid obesity Surgery & Anesthesia Issues No known issue Meds Anticoagulation: Yes Beta Vivian within 24 hr: No Reason Beta Vivian not given: Pt. not on B-Vivian Reported Medications Clopidogrel Bisulfate* (Clopidogrel Bisulfate*) 75 Mg Tablet, 75 MG PO DAILY, #30 TAB 11/25/18 Furosemide* (Furosemide*) 40 Mg Tablet, 40 MG PO BID, TAB HOLD FOR SBP<110 11/25/18 Mupirocin* (Bactroban*) 2% -22 Gram Oint...g., 1 APPLIC TOP BID, #1 TUB SITE OF APPLICATION: 11/25/18 Pantoprazole* (Pantoprazole*) 40 Mg Tablet.dr, 40 MG PO AC BREAKFAST, TAB 11/25/18 Prednisone* (Prednisone*) 20 Mg Tab, 40 MG PO DAILY, TAB FOR 4 DAYS,START DATE 11/23/18, END DATE 11/27/18 11/25/18 Guaifenesin-Dextromethorphan* (Robitussin* DM) 100MG/10MG/5ML Syrup, 10 ML PO Q4H PRN for COUGH, ML 02/15/18 Gabapentin* (Gabapentin*) 300 Mg Capsule, 300 MG PO QHS, #60 CAP 02/15/18 Pramipexole* (Mirapex*) 0.5 Mg Tablet, 0.5 MG PO QHS, TAB 02/15/18 Hydralazine Hcl* (Hydralazine Hcl*) 25 Mg Tab, 25 MG PO Q6H PRN for FOR BP>160/95, #60 TAB 02/15/18 Tamsulosin Hcl* (Flomax*) 0.4 Mg Cap.er.24h, 0.4 MG PO DAILY, CAP 02/15/18 Ferrous Sulfate* (Ferrous Sulfate*) 325 Mg Tabec, 325 MG PO DAILY, TAB 02/15/18 Bisacodyl* (Bisacodyl*) 10 Mg Supp, 10 MG OH Q48H, SUPP 02/15/18 Docusate Sodium* (Docusate Sodium*) 100 Mg Capsule, 100 MG PO BID, #60 CAP 02/15/18 Atorvastatin Calcium (Atorvastatin Calcium) 10 Mg Tablet, 10 MG PO QHS, #30 TAB 02/15/18 Aspirin* (Aspirin* EC) 325 Mg Tab, 325 MG PO DAILY, TAB 02/15/18 Amiodarone Hcl* (Amiodarone Hcl*) 200 Mg Tablet, 200 MG PO DAILY, #30 TAB HOLD IF APICAL PULSE IS<60 02/15/18 Allopurinol* (Allopurinol*) 100 Mg Tablet, 200 MG PO DAILY, TAB 02/15/18 Acetaminophen* (Acetaminophen*) 325 Mg Tablet, 650 MG PO Q4H PRN for MILD PAIN LEVEL 1-3, #30 TAB AND FOR FEVER 02/15/18 Current Medications Albuterol/ Ipratropium (Duoneb) 3 ml Q6HWA RESP THERAPY HHN Last administered on 12/07/18at 20:11; Admin Dose 3 ML; Start 11/26/18 at 08:00 Acetaminophen (Tylenol Tab) 500 mg Q6H PRN PO MILD PAIN(1-3)OR ELEVATED TEMP Last administered on 12/07/18at 22:43; Admin Dose 500 MG; Start 11/25/18 at 22:30 Albumin Human 50 ml @ 100 mls/hr WITH DIALYSIS PRN IV SBP lower than 90 mm Hg Last administered on 12/05/18at 12:07; Admin Dose 100 MLS/HR; Start 11/26/18 at 14:00 Sodium Chloride (NS) -To prime the dialy... DIRECTED FOR HD PRN IV SBP lower than 90 mm Hg ; Start 11/26/18 at 14:00 IV Flush (NS 10 ml) 10 ml PRN PRN IV IV PROTOCOL; Start 11/26/18 at 14:30 Hydralazine HCl (Apresoline) 20 mg Q6H PRN IV SBP > 160 Last administered on 11/29/18at 12:33; Admin Dose 20 MG; Start 11/28/18 at 07:00 Albuterol/ Ipratropium (Duoneb) 3 ml Q4H RESP THERAPY PRN HHN SHORTNESS OF B REATH Last administered on 12/02/18 03:49; Admin Dose 3 ML; Start 11/29/18 at 01:00 Metoprolol Tartrate (Lopressor) 25 mg BID PO Last administered on 12/08/18 08:05; Admin Dose 25 MG; Start 11/30/18 at 21:00 Metoprolol Tartrate (Lopressor) 5 mg Q4H PRN IV HR>110 Hold SBP<100; Start 11/30/18 at 12:30 Heparin Sodium (Porcine) (Heparin (1000 Units/ml)) 2,800 unit AFTER DIALYSIS CATHETER Last administered on 12/05/18 13:24; Admin Dose 2,800 UNIT; Start 12/01/18 at 11:30 Haloperidol (Haldol) 2 mg Q6H PRN IV hallucinations Last administered on 12/02/18 03:21; Admin Dose 2 MG; Start 12/01/18 at 19:30 Nifedipine (Procardia Xl) 30 mg DAILY PO Last administered on 12/08/18 08:04; Admin Dose 30 MG; Start 12/07/18 at 09:00 Pantoprazole (Protonix Tab) 40 mg BID@0600,1800 PO Last administered on 06:29; Admin Dose 40 MG; Start 12/07/18 at 18:00 Levothyroxine Sodium (Synthroid) 150 mcg DAILY@06 PO Last administered on 12/08/18at 06:29; Admin Dose 150 MCG; Start 12/08/18 at 06:00 Meds reviewed: Yes Allergies Coded Allergies: aspirin (Verified Allergy, Unknown, 11/25/18) Allergies Reviewed: Yes Labs/Studies Labs Reviewed: Reviewed by anesthesiologist Result Diagram: 12/08/18 0536 12/08/18 0536 Laboratory Tests 12/08/18 05:36 test: N/A Studies: ECG Pre-procedure Exam Last vitals Vital Signs Date Temp Pulse Resp B/P (MAP) Pulse Ox O2 O2 Flow FiO2 Time Delivery Rate 12/08/18 64 09:14 12/08/18 98.1 20 135/61 100 07:28 (85) 12/08/18 2.0 03:40 12/07/18 Room Air 23:11 Airway: Adequate mouth opening, Adequate thyromental dist Mallampati: Mallampati III Teeth: Normal Lung: Normal Heart: Normal ASA Physical Status ASA physical status: 4 Emergency: None Planned Anesthetic General/MAC: LMA Planned Pain Management Parenteral pain med, Local by surgeon Pre-operative Attestations Prior to commencing anesthesia and surgery, the patient was re-evaluated, there was verification of: *The patient's identity *The results of appropriate recent lab work and preoperative vital signs *The above evaluation not changing prior to induction *Anesthetic plan, risk benefits, alternative and complications discussed with patient/family; questions answered; patient/family understands, accepts and wishes to proceed. LAXMI ROTIZ MD Dec 08, 2018 10:07
[2018-12-08] MEDS ORDERED: FENTAnyl 50 MCG/ML VIAL ONE (10:32)
[2018-12-08] MEDS ORDERED: MIDAZOLAM 1 MG/ML 2 ML INJ ONE (10:32)
--- NOTE | 2018-12-08 11:27 | CONS ---
Date/Time of Note Date/Time of Note DATE: 12/08/18 TIME: 11:06 Assessment/Plan Assessment/Plan Hospital Course Pt getting new HD catheter; HD not performed yesterday as HD catheter was not working per d/w nursing. Chart reviewed. Assessment/Plan - s/p leukocytosis on 12/05/2018 may reflect receipt of pRBC x2 units - s/p leukocytosis likely due to steroid margination 11/25/2018-12/01/2018 - s/p severe sepsis with septic shock due to UTI +/- bacteremia; s/p Dopamine - s/p UTI due to klebsiella and proteus - treated with ceftriaxone (11/25/2018- 11/29/2018) - s/p bacteremia 1/2 sets from 11/25/2018 due to coag negative Staph, likely contaminant - s/p SIRS due to acute hypoxic resp failure and acute on chronic renal failure - acute hypoxic resp failure, probably due to CHF exacerbation +/- aspiration pneumonia/pneumonitis, off bipap - acute on chronic diastolic CHF, improved after HD - s/p tachycardia c/w AF/AFL with RVR - now in sinus - s/p bradycardia to 40's, now SR - acute on chronic renal failure, started on HD on 11/26/2018 - acute on chronic anemia requiring PRBC - s/p GIB - gastritis, duodenitis, esophagitis and hiatal hernia per EGD with biopsy on 12/07/2018 - external hemorrhoids, mild to moderate diverticulosis per Colonoscopy and polypectomy 12/07/2018 - underlying COPD - CAD - hypothyroidism - TSH elevated and FT4 depressed - gout - eschar of L 4th toe, probably ischemic eschar/ischemia - acute encephalopathy due to sepsis, improving Recommendations: - Monitor Pt off systemic antibiotics. Pt completed cefepime (11/30/2018-12/02/2018) and ceftriaxone (11/25/2018-11/29/2018) - F/u biopsy/path from EGD/Colonoscopy Management d/w pt's NARINDER Mon and with Dr. Haile Result Diagram: 12/08/18 0536 12/08/18 0536 Results 24hrs Laboratory Tests Test 12/07/18 14:38 12/07/18 19:31 12/08/18 05:36 Hemoglobin 9.9 L 9.9 L 8.6 L Hematocrit 30.5 L 29.8 L 26.1 L White Blood Count 6.9 Red Blood Count 2.91 L Mean Corpuscular Volume 89.7 Mean Corpuscular Hemoglobin 29.6 Mean Corpuscular Hemoglobin Concent 33.0 Red Cell Distribution Width 16.4 H Platelet Count 187 Mean Platelet Volume 9.9 Immature Granulocytes % 0.900 H Neutrophils % 70.8 Lymphocytes % 14.0 L Monocytes % 12.4 H Eosinophils % 1.6 Basophils % 0.3 Nucleated Red Blood Cells % 0.0 Immature Granulocytes # 0.060 H Neutrophils # 4.9 Lymphocytes # 1.0 Monocytes # 0.9 Eosinophils # 0.1 Basophils # 0.0 Nucleated Red Blood Cells # 0.0 Sodium Level 140 Potassium Level 4.6 Chloride Level 99 Carbon Dioxide Level 25 Anion Gap 16 H Blood Urea Nitrogen 72 H Creatinine 6.08 H Est Glomerular Filtrat Rate mL/min Glucose Level 106 Calcium Level 8.7 Consultation Date/Type/Reason Admit Date/Time Nov 26, 2018 at 11:28 Initial Consult Date 11/27/18 Type of Consult Infectious Disease Requesting Provider: KATIE MENDEZ 24 HR Interval Summary Free Text/Dictation HD catheter not working and pt went for new HD catheter placement. Exam/Review of Systems Vital Signs Vitals Vital Signs Date Temp Pulse Resp B/P (MAP) Pulse Ox O2 O2 Flow FiO2 Time Delivery Rate 12/08/18 64 09:14 12/08/18 Nasal 3.0 09:10 Cannula 12/08/18 98.1 20 135/61 100 07:28 (85) Intake and Output 12/07/18 12/07/18 12/08/18 1515:00 23:00 07:00 IntakeIntake Total 0 ml BalanceBalance 0 ml Exam Pt not in room Medications Medications Current Medications Albuterol/ Ipratropium (Duoneb) 3 ml Q6HWA RESP THERAPY HHN Last administered on 12/07/18at 20:11; Admin Dose 3 ML; Start 11/26/18 at 08:00 Acetaminophen (Tylenol Tab) 500 mg Q6H PRN PO MILD PAIN(1-3)OR ELEVATED TEMP Last administered on 12/07/18at 22:43; Admin Dose 500 MG; Start 11/25/18 at 22:30 Albumin Human 50 ml @ 100 mls/hr WITH DIALYSIS PRN IV SBP lower than 90 mm Hg Last administered on 12/05/18 12:07; Admin Dose 100 MLS/HR; Start 11/26/18 at 14:00 Sodium Chloride (NS) -To prime the dialy... DIRECTED FOR HD PRN IV SBP lower than 90 mm Hg ; Start 11/26/18 at 14:00 IV Flush (NS 10 ml) 10 ml PRN PRN IV IV PROTOCOL; Start 11/26/18 at 14:30 Hydralazine HCl (Apresoline) 20 mg Q6H PRN IV SBP > 160 Last administered on 11/29/18 12:33; Admin Dose 20 MG; Start 11/28/18 at 07:00 Albuterol/ Ipratropium (Duoneb) 3 ml Q4H RESP THERAPY PRN HHN SHORTNESS OF BREATH Last administered on 12/02/18 03:49; Admin Dose 3 ML; Start 11/29/18 at 01:00 Metoprolol Tartrate (Lopressor) 25 mg BID PO Last administered on 12/08/18 08:05; Admin Dose 25 MG; Start 11/30/18 at 21:00 Metoprolol Tartrate (Lopressor) 5 mg Q4H PRN IV HR>110 Hold SBP<100; Start 11/30/18 at 12:30 Heparin Sodium (Porcine) (Heparin (1000 Units/ml)) 2,800 unit AFTER DIALYSIS CATHETER Last administered on 12/05/18 13:24; Admin Dose 2,800 UNIT; Start 12/01/18 at 11:30 Haloperidol (Haldol) 2 mg Q6H PRN IV hallucinations Last administered on 12/02/18 03:21; Admin Dose 2 MG; Start 12/01/18 at 19:30 Nifedipine (Procardia Xl) 30 mg DAILY PO Last administered on 12/08/18 08:04; Admin Dose 30 MG; Start 12/07/18 at 09:00 Pantoprazole (Protonix Tab) 40 mg BID@0600,1800 PO Last administered on 12/08/18 06:29; Admin Dose 40 MG; Start 12/07/18 at 18:00 Levothyroxine Sodium (Synthroid) 150 mcg DAILY@06 PO Last administered on 12/08/18 06:29; Admin Dose 150 MCG; Start 12/08/18 at 06:00 MING HUSTNO NP Dec 08, 2018 11:17
[2018-12-08] MEDS ORDERED: SODIUM CL BACTERIOSTATIC 30 ML INJ ONE (11:35)
[2018-12-08] MEDS ORDERED: CEFAZOLIN 1 GM INJ ONE (11:54)
--- NOTE | 2018-12-08 12:09 | PAC ---
Date/Time of Note Date/Time of Note DATE: 12/08/18 TIME: 12:08 Post-Anesthesia Notes Post-Anesthesia Note Last documented vital signs Vital Signs Date Temp Pulse Resp B/P (MAP) Pulse Ox O2 O2 Flow FiO2 Time Delivery Rate 12/08/18 64 09:14 12/08/18 Nasal 3.0 09:10 Cannula 12/08/18 98.1 20 135/61 100 07:28 (85) Activity: WNL Respiratory function: WNL Cardiovascular function: WNL Mental status: Baseline Pain reasonably controlled: Yes Hydration appropriate: Yes Nausea/Vomiting absent: Yes Comments BP:145/58, pulse:64, spo2:100%, T:98,8 LAXMI ORTIZ MD Dec 08, 2018 12:09
[2018-12-08] MEDS ORDERED: DIPHENHYDRAMINE 50 MG INJ IV PRN (12:30)
[2018-12-08] MEDS ORDERED: HYDROmorphONE 1 MG/5 ML IV SYRINGE IV PRN (12:30)
[2018-12-08] MEDS ORDERED: FENTAnyl 50 MCG/ML VIAL IV PRN (12:30)
--- NOTE | 2018-12-08 14:26 | CONS ---
Date/Time of Note Date/Time of Note DATE: 12/08/18 TIME: 14:26 Assessment/Plan Assessment/Plan Assessment/Plan 1. Oliguric Acute kindey injury on CKD III due to ATN from septic shock, 2. Acute uremic encephalopathy 3. Acute hyperkalemia- resolved 4. Severe metabolic acidosis 5. Septic shock on pressors 2/2 UTI and bacteremia 6. acute hypoxemic respiraotry failure on BIPAP 7. acute on chronic,systolic and diastolic heart failure 8. H/o HTN 9. H/o COPD 10. Acute GI bleeding s/p 3 U PRBC , s/p EGD and Colonoscopy Plan: started on HD on 11/26/17- s/p Right chest permacath on 12/08/18- S/p HD today 2 L removed, will keep pt on Fri, , Friday schedule Primary Nurse and Charge Nurse rupinder has been instructed to remove Right groin Mic HD catheter IV abx as per PMD, renally dose all abx and monitor electrolytes will follow up Result Diagram: 12/08/18 0536 12/08/18 0536 Results 24hrs Laboratory Tests Test 12/07/18 14:38 12/07/18 19:31 12/08/18 05:36 Hemoglobin 9.9 L 9.9 L 8.6 L Hematocrit 30.5 L 29.8 L 26.1 L White Blood Count 6.9 Red Blood Count 2.91 L Mean Corpuscular Volume 89.7 Mean Corpuscular Hemoglobin 29.6 Mean Corpuscular Hemoglobin Concent 33.0 Red Cell Distribution Width 16.4 H Platelet Count 187 Mean Platelet Volume 9.9 Immature Granulocytes % 0.900 H Neutrophils % 70.8 Lymphocytes % 14.0 L Monocytes % 12.4 H Eosinophils % 1.6 Basophils % 0.3 Nucleated Red Blood Cells % 0.0 Immature Granulocytes # 0.060 H Neutrophils # 4.9 Lymphocytes # 1.0 Monocytes # 0.9 Eosinophils # 0.1 Basophils # 0.0 Nucleated Red Blood Cells # 0.0 Sodium Level 140 Potassium Level 4.6 Chloride Level 99 Carbon Dioxide Level 25 Anion Gap 16 H Blood Urea Nitrogen 72 H Creatinine 6.08 H Est Glomerular Filtrat Rate mL/min Glucose Level 106 Calcium Level 8.7 Consultation Date/Type/Reason Admit Date/Time Nov 26, 2018 at 11:28 Initial Consult Date 11/26/18 Type of Consult NEPHROLOGY Requesting Provider: KATIE MENDEZ 24 HR Interval Summary Free Text/Dictation S/p Right chest permacath worked today wiht HD 2 Liter removed Exam/Review of Systems Vital Signs Vitals Vital Signs Date Temp Pulse Resp B/P (MAP) Pulse Ox O2 O2 Flow FiO2 Time Delivery Rate 12/08/18 85 18 94 21 13:39 12/08/18 98.9 12:55 12/08/18 132/55 Room Air 12:38 (80) 12/08/18 8.0 12:13 Intake and Output 12/07/18 12/07/18 12/08/18 1515:00 23:00 07:00 IntakeIntake Total 0 ml BalanceBalance 0 ml Exam Constitutional: alert, well developed Respiratory: diminished breath sounds (at bases bilaterlly), + right chest permacath Cardiovascular: nl pulses, other (s1s2) Gastrointestinal: soft, non-tender Musculoskeletal: muscle weakness Extremities: normal pulses 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: nl speech, other (alert/responsive) Medications Medications Current Medications Albuterol/ Ipratropium (Duoneb) 3 ml Q6HWA RESP THERAPY HHN Last administered on 12/08/18at 13:30; Admin Dose 3 ML; Start 11/26/18 at 08:00 Acetaminophen (Tylenol Tab) 500 mg Q6H PRN PO MILD PAIN(1-3)OR ELEVATED TEMP Last administered on 12/07/18at 22:43; Admin Dose 500 MG; Start 11/25/18 at 22:30 Albumin Human 50 ml @ 100 mls/hr WITH DIALYSIS PRN IV SBP lower than 90 mm Hg Last administered on 12/05/18at 12:07; Admin Dose 100 MLS/HR; Start 11/26/18 at 14:00 Sodium Chloride (NS) -To prime the dialy... DIRECTED FOR HD PRN IV SBP lower than 90 mm Hg ; Start 11/26/18 at 14:00 IV Flush (NS 10 ml) 10 ml PRN PRN IV IV PROTOCOL; Start 11/26/18 at 14:30 Hydralazine HCl (Apresoline) 20 mg Q6H PRN IV SBP > 160 Last administered on 11/29/18at 12:33; Admin Dose 20 MG; Start 11/28/18 at 07:00 Albuterol/ Ipratropium (Duoneb) 3 ml Q4H RESP THERAPY PRN HHN SHORTNESS OF BREATH Last administered on 12/02/18at 03:49; Admin Dose 3 ML; Start 11/29/18 at 01:00 Metoprolol Tartrate (Lopressor) 25 mg BID PO Last administered on 12/08/18 08: 05; Admin Dose 25 MG; Start 11/30/18 at 21:00 Metoprolol Tartrate (Lopressor) 5 mg Q4H PRN IV HR>110 Hold SBP<100; Start 11/30/18 at 12:30 Heparin Sodium (Porcine) (Heparin (1000 Units/ml)) 2,800 unit AFTER DIALYSIS CATHETER Last administered on 12/05/18 13:24; Admin Dose 2,800 UNIT; Start 12/01/18 at 11:30 Haloperidol (Haldol) 2 mg Q6H PRN IV hallucinations Last administered on 12/02/18 03:21; Admin Dose 2 MG; Start 12/01/18 at 19:30 Nifedipine (Procardia Xl) 30 mg DAILY PO Last administered on 12/08/18 08:04; Admin Dose 30 MG; Start 12/07/18 at 09:00 Pantoprazole (Protonix Tab) 40 mg BID@0600,1800 PO Last administered on 12/08/18 06:29; Admin Dose 40 MG; Start 12/07/18 at 18:00 Levothyroxine Sodium (Synthroid) 150 mcg DAILY@06 PO Last administered on 12/08/18 06:29; Admin Dose 150 MCG; Start 12/08/18 at 06:00 Hydromorphone HCl (Dilaudid) 0.2 mg PACU PRN IV MILD PAIN LEVEL 1-3; Start 12/08/18 at 12:30; Stop 12/08/18 at 16:30 Fentanyl (Sublimaze) 25 mcg PACU ORDER PRN IV MILD PAIN LEVEL 1-3; Start 12/08/18 at 12:30; Stop 12/08/18 at 16:30 Diphenhydramine HCl (Benadryl) 25 mg PACU ORDER PRN IV PRURITUS; Start 12/08/18 at 12:30; Stop 12/08/18 at 16:30 GI HARTMAN MD Dec 08, 2018 14:26
--- NOTE | 2018-12-08 15:45 | PN ---
Date/Time of Note Date/Time of Note DATE: 12/08/18 TIME: 15:39 Assessment/Plan VTE Prophylaxis Risk score (from Ns)>0 risk: 5 SCD applied (from [facility] [place]): Yes Pharmacological prophylaxis: NA/contraindicated Pharm contraindication: bleeding Lines/Catheters IV Catheter Type (from [facility] Mid Line Central line still needed: Yes Urinary Cath still in place: Yes Reason Cath still needed: urinary retention Assessment/Plan Hospital Course Patient status post right chest permacath placement. She remains hemodynamically stable afebrile. Assessment/Plan -Anemia secondary to GI bleed. Protonix IV. Heparin is stopped. Transfuse as needed. -Status post EGD with notion of erosive gastritis and moderate duodenitis as well as hiatal hernia continue PPI. Status post colonoscopy with polypectomy and notion of moderate diverticulosis on 12/07/2018. Dr. Lewis is following in gastroenterology consultation. -Acute respiratory failure, resolved. Dr. Garcia is following in pulmonology consultation. -S/p sepsis secondary to UTI. Continue antibiotics per ID. Dr. Jordan is following in infection disease consultation. -S/p septic and cardiogenic shock -s/p Left lower lobe pneumonia -Acute on chronic systolic and diastolic congestive heart failure, improved with hemodialysis. Dr. Iraheta is following in cardiology consultation. -ARF on CKD. Patient started on hemodialysis during this admission. Continue hemodialysis per nephrology. Dr Hill is following in nephrology consultation. -Pulmonary edema -Hypothyroidism, continue Synthroid. -DNR status Further recommendations based on clinical course. Plan of care discussed with Dr. Olivier. Result Diagram: 12/08/18 0536 12/08/18 0536 Results 24hrs Laboratory Tests Test 12/07/18 19:31 12/08/18 05:36 Hemoglobin 9.9 L 8.6 L Hematocrit 29.8 L 26.1 L White Blood Count 6.9 Red Blood Count 2.91 L Mean Corpuscular Volume 89.7 Mean Corpuscular Hemoglobin 29.6 Mean Corpuscular Hemoglobin Concent 33.0 Red Cell Distribution Width 16.4 H Platelet Count 187 Mean Platelet Volume 9.9 Immature Granulocytes % 0.900 H Neutrophils % 70.8 Lymphocytes % 14.0 L Monocytes % 12.4 H Eosinophils % 1.6 Basophils % 0.3 Nucleated Red Blood Cells % 0.0 Immature Granulocytes # 0.060 H Neutrophils # 4.9 Lymphocytes # 1.0 Monocytes # 0.9 Eosinophils # 0.1 Basophils # 0.0 Nucleated Red Blood Cells # 0.0 Sodium Level 140 Potassium Level 4.6 Chloride Level 99 Carbon Dioxide Level 25 Anion Gap 16 H Blood Urea Nitrogen 72 H Creatinine 6.08 H Est Glomerular Filtrat Rate mL/min Glucose Level 106 Calcium Level 8.7 Exam/Review of Systems Vital Signs Vitals Vital Signs Date Temp Pulse Resp B/P (MAP) Pulse Ox O2 O2 Flow FiO2 Time Delivery Rate 12/08/18 98.3 69 20 115/53 97 15:34 (73) 12/08/18 21 13:39 12/08/18 Room Air 13:08 12/08/18 8.0 12:13 Intake and Output 12/07/18 12/07/18 12/08/18 1515:00 23:00 07:00 IntakeIntake Total 0 ml BalanceBalance 0 ml Exam Constitutional: frail, generalized edema Neck: supple Respiratory: diminished breath sounds Cardiovascular: Irregular rhythm Gastrointestinal: soft, non-tender Extremities: normal pulses, edema 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: confused Right chest permacath Medications Medications Current Medications Albuterol/ Ipratropium (Duoneb) 3 ml Q6HWA RESP THERAPY HHN Last administered on 12/08/18at 13:30; Admin Dose 3 ML; Start 11/26/18 at 08:00 Acetaminophen (Tylenol Tab) 500 mg Q6H PRN PO MILD PAIN(1-3)OR ELEVATED TEMP Last administered on 12/07/18at 22:43; Admin Dose 500 MG; Start 11/25/18 at 22:30 Albumin Human 50 ml @ 100 mls/hr WITH DIALYSIS PRN IV SBP lower than 90 mm Hg Last administered on 12/05/18at 12:07; Admin Dose 100 MLS/HR; Start 11/26/18 at 14:00 Sodium Chloride (NS) -To prime the dialy... DIRECTED FOR HD PRN IV SBP lower than 90 mm Hg ; Start 11/26/18 at 14:00 IV Flush (NS 10 ml) 10 ml PRN PRN IV IV PROTOCOL; Start 11/26/18 at 14:30 Hydralazine HCl (Apresoline) 20 mg Q6H PRN IV SBP > 160 Last administered on 11/29/18 12:33; Admin Dose 20 MG; Start 11/28/18 at 07:00 Albuterol/ Ipratropium (Duoneb) 3 ml Q4H RESP THERAPY PRN HHN SHORTNESS OF BREATH Last administered on 12/02/18 03:49; Admin Dose 3 ML; Start 11/29/18 at 01:00 Metoprolol Tartrate (Lopressor) 25 mg BID PO Last administered on 12/08/18 08:05; Admin Dose 25 MG; Start 11/30/18 at 21:00 Metoprolol Tartrate (Lopressor) 5 mg Q4H PRN IV HR>110 Hold SBP<100; Start 11/30/18 at 12:30 Heparin Sodium (Porcine) (Heparin (1000 Units/ml)) 2,800 unit AFTER DIALYSIS CATHETER Last administered on 12/05/18 13:24; Admin Dose 2,800 UNIT; Start 12/01/18 at 11:30 Haloperidol (Haldol) 2 mg Q6H PRN IV hallucinations Last administered on 12/02/18 03:21; Admin Dose 2 MG; Start 12/01/18 at 19:30 Nifedipine (Procardia Xl) 30 mg DAILY PO Last administered on 12/08/18 08:04; Admin Dose 30 MG; Start 12/07/18 at 09:00 Pantoprazole (Protonix Tab) 40 mg BID@0600,1800 PO Last administered on 12/08/18 06:29; Admin Dose 40 MG; Start 12/07/18 at 18:00 Levothyroxine Sodium (Synthroid) 150 mcg DAILY@06 PO Last administered on 12/08/18 06:29; Admin Dose 150 MCG; Start 12/08/18 at 06:00 Hydromorphone HCl (Dilaudid) 0.2 mg PACU PRN IV MILD PAIN LEVEL 1-3; Start 12/08/18 at 12:30; Stop 12/08/18 at 16:30 Fentanyl (Sublimaze) 25 mcg PACU ORDER PRN IV MILD PAIN LEVEL 1-3; Start 12/08/18 at 12:30; Stop 12/08/18 at 16:30 Diphenhydramine HCl (Benadryl) 25 mg PACU ORDER PRN IV PRURITUS; Start 12/08/18 at 12:30; Stop 12/08/18 at 16:30 EDWAR VARGAS Dec 08, 2018 15:45
[2018-12-08] MEDS: HEPARIN 1000 UNITS/ML 10 ML INJ CATHETER SCH (18:29)
[2018-12-08] MEDS: ACETAMINOPHEN 500 MG TAB PO PRN (21:19)
[2018-12-09] VITALS (10 sets, daily range): BP systolic 105–136; BP diastolic 54–61; PULSE 62–80; RESP 19–20
[2018-12-09] MEDS: PANTOPRAZOLE (EC) 40 MG TAB PO SCH (05:18)
[2018-12-09] MEDS: LEVOTHYROXINE 150 MCG TAB PO SCH (05:18)
[2018-12-09] MEDS: ALBUTEROL/IPRATROPIUM (NEB) 3 ML AMP HHN SCH ×3 (08:14→19:53)
[2018-12-09] MEDS: NIFEdipine (XL) 30 MG TAB PO SCH (09:28)
[2018-12-09] MEDS: METOPROLOL 25 MG TAB PO SCH ×2 (09:29→21:57)
--- NOTE | 2018-12-09 09:40 | CONS ---
Date/Time of Note Date/Time of Note DATE: 12/09/18 TIME: 09:40 Assessment/Plan Assessment/Plan Assessment/Plan 1. Oliguric Acute kindey injury on CKD III due to ATN from septic shock, 2. Acute uremic encephalopathy 3. Acute hyperkalemia- resolved 4. Severe metabolic acidosis 5. Septic shock on pressors 2/2 UTI and bacteremia 6. acute hypoxemic respiraotry failure on BIPAP 7. acute on chronic,systolic and diastolic heart failure 8. H/o HTN 9. H/o COPD 10. Acute GI bleeding s/p 3 U PRBC , s/p EGD and Colonoscopy Plan: started on HD on 11/26/17- s/p Right chest permacath on 12/08/18- will keep pt on Fri, , Friday schedule - HD Ordered for Outpatient HD placement has been requested to be at [facility] [place] HD center IV abx as per PMD, renally dose all abx and monitor electrolytes will follow up Result Diagram: 12/09/18 0516 12/09/18 0516 Results 24hrs Laboratory Tests Test 12/09/18 05:16 White Blood Count 6.5 Red Blood Count 3.09 L Hemoglobin 9.1 L Hematocrit 28.1 L Mean Corpuscular Volume 90.9 Mean Corpuscular Hemoglobin 29.4 Mean Corpuscular Hemoglobin Concent 32.4 Red Cell Distribution Width 16.4 H Platelet Count 177 Mean Platelet Volume 9.8 Immature Granulocytes % 0.800 H Neutrophils % 74.7 Lymphocytes % 11.1 L Monocytes % 10.6 Eosinophils % 2.5 Basophils % 0.3 Nucleated Red Blood Cells % 0.0 Immature Granulocytes # 0.050 H Neutrophils # 4.9 Lymphocytes # 0.7 L Monocytes # 0.7 Eosinophils # 0.2 Basophils # 0.0 Nucleated Red Blood Cells # 0.0 Sodium Level 138 Potassium Level 4.3 Chloride Level 100 Carbon Dioxide Level 29 Anion Gap 9 # Blood Urea Nitrogen 32 #H Creatinine 3.54 #H Est Glomerular Filtrat Rate mL/min Glucose Level 104 Calcium Level 8.8 Consultation Date/Type/Reason Admit Date/Time Nov 26, 2018 at 11:28 Initial Consult Date 11/26/18 Type of Consult NEPHROLOGY Requesting Provider: KATIE MENDEZ Exam/Review of Systems Vital Signs Vitals Vital Signs Date Temp Pulse Resp B/P (MAP) Pulse Ox O2 O2 Flow FiO2 Time Delivery Rate 12/09/18 82 18 95 Nasal 2.0 08:17 Cannula 12/09/18 98.3 136/60 07:16 (85) 12/08/18 21 21:28 Intake and Output 12/08/18 12/08/18 12/09/18 1515:00 23:00 07:00 IntakeIntake Total 390 ml 600 ml 30 ml OutputOutput Total 60 ml 2750 ml 150 ml BalanceBalance 330 ml -2150 ml -120 ml Medications Medications Current Medications Albuterol/ Ipratropium (Duoneb) 3 ml Q6HWA RESP THERAPY HHN Last administered on 12/09/18at 08:14; Admin Dose 3 ML; Start 11/26/18 at 08:00 Acetaminophen (Tylenol Tab) 500 mg Q6H PRN PO MILD PAIN(1-3)OR ELEVATED TEMP Last administered on 12/08/18at 21:19; Admin Dose 500 MG; Start 11/25/18 at 22:30 Albumin Human 50 ml @ 100 mls/hr WITH DIALYSIS PRN IV SBP lower than 90 mm Hg Last administered on 12/05/18at 12:07; Admin Dose 100 MLS/HR; Start 11/26/18 at 14:00 Sodium Chloride (NS) -To prime the dialy... DIRECTED FOR HD PRN IV SBP lower than 90 mm Hg ; Start 11/26/18 at 14:00 IV Flush (NS 10 ml) 10 ml PRN PRN IV IV PROTOCOL; Start 11/26/18 at 14:30 Hydralazine HCl (Apresoline) 20 mg Q6H PRN IV SBP > 160 Last administered on 11/29/18at 12:33; Admin Dose 20 MG; Start 11/28/18 at 07:00 Albuterol/ Ipratropium (Duoneb) 3 ml Q4H RESP THERAPY PRN HHN SHORTNESS OF BREATH Last administered on 12/02/18at 03:49; Admin Dose 3 ML; Start 11/29/18 at 01:00 Metoprolol Tartrate (Lopressor) 25 mg BID PO Last administered on 12/09/18at 09:29; Admin Dose 25 MG; Start 11/30/18 at 21:00 Metoprolol Tartrate (Lopressor) 5 mg Q4H PRN IV HR>110 Hold SBP<100; Start 11/30/18 at 12:30 Haloperidol (Haldol) 2 mg Q6H PRN IV hallucinations Last administered on 12/02/18at 03:21; Admin Dose 2 MG; Start 12/01/18 at 19:30 Nifedipine (Procardia Xl) 30 mg DAILY PO Last administered on 12/09/18at 09:28; Admin Dose 30 MG; Start 12/07/18 at 09:00 Pantoprazole (Protonix Tab) 40 mg BID@0600,1800 PO Last administered on 12/09/18 05:18; Admin Dose 40 MG; Start 12/07/18 at 18:00 Levothyroxine Sodium (Synthroid) 150 mcg DAILY@06 PO Last administered on 12/09/18at 05:18; Admin Dose 150 MCG; Start 12/08/18 at 06:00 Heparin Sodium (Porcine) (Heparin (1000 Units/ml)) 3,700 unit AFTER DIALYSIS CATHETER Last administered on 12/08/18at 18:29; Admin Dose 3,700 UNIT; Start 12/08/18 at 16:00 GI HARTMAN MD Dec 09, 2018 09:40
--- NOTE | 2018-12-09 11:20 | PN ---
Date/Time of Note Date/Time of Note DATE: 12/09/18 TIME: 11:13 Assessment/Plan VTE Prophylaxis Risk score (from Ns)>0 risk: 10 SCD applied (from [facility] [place]): Yes Pharmacological prophylaxis: NA/contraindicated Pharm contraindication: bleeding Lines/Catheters IV Catheter Type (from [facility]): Permcath Urinary Cath still in place: Yes Reason Cath still needed: urinary retention Assessment/Plan Hospital Course 88 yo female presented with SOB, found to have septic and cardiogenic shock, stable on telemetry floor with acute drop in HH with positive FOB, S/P EGD/colon 12/07/18 1. Anemia -acute on chronic secondary to blood loss -pos FOB -hematochezia, no melena 2. Acute respiratory failure -improved -followed by Dr. Garcia 3. VRE in urine -pt was septic, stable now, ID following 4. S/P septic and cardiogenic shock 5. CKD III with acute renal failure -started on HD during this admission. -Dr Hill, nephrology 6. Acute on chronic diastolic CHF -Dr Iraheta from cardiology 7. Left lower lobe pneumonia 8. Hypothyroidism -management by primary 9. DNR status 10. External hemorrhoid 11. Moderate diverticulosis 12. Polyp, s/p polypectomy 13. 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 5cm hiatal hernia 15. Erosive gastritis 16. Moderate duodenitis Pathology 12/08: A-Stomach, biopsy: -- Oxyntic mucosa showing no significant histopathological abnormality. B-Esophagus, biopsy: -- Squamous mucosa showing mild acute inflammation and separate fragments of inflammatory exudate comprised of histiocytes, lymphocytes and neutrophils. -- No glandular mucosa is identified. -- Fungal yeast and pseudohyphae compatible with celeste species are identified in Alcian Blue/PAS stain (positive control concurrently reviewed). -- No evidence of dysplasia or malignancy. C-Cecum, polyp, biopsy: -- Diminutive tubular adenoma. -- No evidence of high grade dysplasia or malignancy. Plan: Nystatin swish and swallow High fiber diet PPI BID Swallow evaluation Diet as tolerated Pt examined and plan of care discussed with Dr. Lewis Result Diagram: 12/09/18 0516 12/09/18 0516 Results 24hrs Laboratory Tests Test 12/09/18 05:16 White Blood Count 6.5 Red Blood Count 3.09 L Hemoglobin 9.1 L Hematocrit 28.1 L Mean Corpuscular Volume 90.9 Mean Corpuscular Hemoglobin 29.4 Mean Corpuscular Hemoglobin Concent 32.4 Red Cell Distribution Width 16.4 H Platelet Count 177 Mean Platelet Volume 9.8 Immature Granulocytes % 0.800 H Neutrophils % 74.7 Lymphocytes % 11.1 L Monocytes % 10.6 Eosinophils % 2.5 Basophils % 0.3 Nucleated Red Blood Cells % 0.0 Immature Granulocytes # 0.050 H Neutrophils # 4.9 Lymphocytes # 0.7 L Monocytes # 0.7 Eosinophils # 0.2 Basophils # 0.0 Nucleated Red Blood Cells # 0.0 Sodium Level 138 Potassium Level 4.3 Chloride Level 100 Carbon Dioxide Level 29 Anion Gap 9 # Blood Urea Nitrogen 32 #H Creatinine 3.54 #H Est Glomerular Filtrat Rate mL/min Glucose Level 104 Calcium Level 8.8 Subjective 24 Hr Interval Summary Free Text/Dictation Pt states her epigastric pain improved, no n/v. Tolerating PO diet. No evidence of GI bleeding per RN Exam/Review of Systems Vital Signs Vitals Vital Signs Date Temp Pulse Resp B/P (MAP) Pulse Ox O2 O2 Flow FiO2 Time Delivery Rate 12/09/18 82 18 95 Nasal 2.0 08:17 Cannula 12/09/18 98.3 136/60 07:16 (85) 12/08/18 21 21:28 Intake and Output 12/08/18 12/08/18 12/09/18 1515:00 23:00 07:00 IntakeIntake Total 390 ml 600 ml 30 ml OutputOutput Total 60 ml 2750 ml 150 ml BalanceBalance 330 ml -2150 ml -120 ml Exam Constitutional: alert Psych: no complaints Head: normocephalic Eyes: PERRL Gastrointestinal: soft, non-tender Extremities: edema (mild) Medications Medications Current Medications Albuterol/ Ipratropium (Duoneb) 3 ml Q6HWA RESP THERAPY HHN Last administered on 12/09/18at 08:14; Admin Dose 3 ML; Start 11/26/18 at 08:00 Acetaminophen (Tylenol Tab) 500 mg Q6H PRN PO MILD PAIN(1-3)OR ELEVATED TEMP Last administered on 12/08/18at 21:19; Admin Dose 500 MG; Start 11/25/18 at 22:30 Albumin Human 50 ml @ 100 mls/hr WITH DIALYSIS PRN IV SBP lower than 90 mm Hg Last administered on 12/05/18at 12:07; Admin Dose 100 MLS/HR; Start 11/26/18 at 14:00 Sodium Chloride (NS) -To prime the dialy... DIRECTED FOR HD PRN IV SBP lower than 90 mm Hg ; Start 11/26/18 at 14:00 IV Flush (NS 10 ml) 10 ml PRN PRN IV IV PROTOCOL; Start 11/26/18 at 14:30 Hydralazine HCl (Apresoline) 20 mg Q6H PRN IV SBP > 160 Last administered on 11/29/18at 12:33; Admin Dose 20 MG; Start 11/28/18 at 07:00 Albuterol/ Ipratropium (Duoneb) 3 ml Q4H RESP THERAPY PRN HHN SHORTNESS OF BREATH Last administered on 12/02/18 03:49; Admin Dose 3 ML; Start 11/29/18 at 01:00 Metoprolol Tartrate (Lopressor) 25 mg BID PO Last administered on 12/09/18 09:29; Admin Dose 25 MG; Start 11/30/18 at 21:00 Metoprolol Tartrate (Lopressor) 5 mg Q4H PRN IV HR>110 Hold SBP<100; Start 11/30/18 at 12:30 Haloperidol (Haldol) 2 mg Q6H PRN IV hallucinations Last administered on 12/02/18 03:21; Admin Dose 2 MG; Start 12/01/18 at 19:30 Nifedipine (Procardia Xl) 30 mg DAILY PO Last administered on 12/09/18 09:28; Admin Dose 30 MG; Start 12/07/18 at 09:00 Pantoprazole (Protonix Tab) 40 mg BID@0600,1800 PO Last administered on 12/09/18 05:18; Admin Dose 40 MG; Start 12/07/18 at 18:00 Levothyroxine Sodium (Synthroid) 150 mcg DAILY@06 PO Last administered on 12/09/18 05:18; Admin Dose 150 MCG; Start 12/08/18 at 06:00 Heparin Sodium (Porcine) (Heparin (1000 Units/ml)) 3,700 unit AFTER DIALYSIS CATHETER Last administered on 12/08/18 18:29; Admin Dose 3,700 UNIT; Start 12/08/18 at 16:00 LAURA HERNANDEZ Dec 09, 2018 11:20
--- NOTE | 2018-12-09 12:03 | CONS ---
Date/Time of Note Date/Time of Note DATE: 12/09/18 TIME: 12:00 Assessment/Plan Assessment/Plan Hospital Course IMPRESSION: 1. Shock, on dopamine pressor support at this time with previously preserved EF by most recent echo September 2018 of 60% to 65%.-improved off dopamine and tolerating BP medications 2. Abnormal echocardiogram, assess for acute coronary syndrome. 3. Congestive heart failure, diastolic, acute on chronic, in the setting of renal failure. 4. Renal failure now on HD 5. Anemia-requiring transfusions 6. Hyponatremia-improved 7. Urinary tract infection. 8. Tachycardia-c/w AF/AFL with RVR 9. Bradycardia- to 40's when converts to SR 10. Esophagitis-by endoscopy celeste REcc: -Tele -Continue abx's and f/u cx data -Follow volume status clsoely -Follow for recurrent significant bradycardia -Continue steroids/bronchodilators -HD for volume removal s/p placement of guanako catheter -started on nystatin Result Diagram: 12/09/18 0516 12/09/18 0516 Results 24hrs Laboratory Tests Test 12/09/18 05:16 White Blood Count 6.5 Red Blood Count 3.09 L Hemoglobin 9.1 L Hematocrit 28.1 L Mean Corpuscular Volume 90.9 Mean Corpuscular Hemoglobin 29.4 Mean Corpuscular Hemoglobin Concent 32.4 Red Cell Distribution Width 16.4 H Platelet Count 177 Mean Platelet Volume 9.8 Immature Granulocytes % 0.800 H Neutrophils % 74.7 Lymphocytes % 11.1 L Monocytes % 10.6 Eosinophils % 2.5 Basophils % 0.3 Nucleated Red Blood Cells % 0.0 Immature Granulocytes # 0.050 H Neutrophils # 4.9 Lymphocytes # 0.7 L Monocytes # 0.7 Eosinophils # 0.2 Basophils # 0.0 Nucleated Red Blood Cells # 0.0 Sodium Level 138 Potassium Level 4.3 Chloride Level 100 Carbon Dioxide Level 29 Anion Gap 9 # Blood Urea Nitrogen 32 #H Creatinine 3.54 #H Est Glomerular Filtrat Rate mL/min Glucose Level 104 Calcium Level 8.8 Consultation Date/Type/Reason Admit Date/Time Nov 26, 2018 at 11:28 Initial Consult Date 11/26/18 Type of Consult cardiology Reason for Consultation CHF Requesting Provider: KATIE MENDEZ Exam/Review of Systems Vital Signs Vitals Vital Signs Date Temp Pulse Resp B/P (MAP) Pulse Ox O2 O2 Flow FiO2 Time Delivery Rate 12/09/18 98.0 69 20 132/59 96 11:24 (83) 12/09/18 Nasal 2.0 08:17 Cannula 12/08/18 21 21:28 Intake and Output 12/08/18 12/08/18 12/09/18 1515:00 23:00 07:00 IntakeIntake Total 390 ml 600 ml 30 ml OutputOutput Total 60 ml 2750 ml 150 ml BalanceBalance 330 ml -2150 ml -120 ml Exam Review of Systems: CONSTITUTIONAL: No fevers, chills. PULMONARY: No sob CARDIOVASCULAR: No chest pain/palpitations GASTROINTESTINAL: No nausea/vomiting. GENITOURINARY: No hematuria/dysuria. MUSCULOSKELETAL: No myagias/arthalgias. PSYCHIATRIC: The patient denies depression. NEUROLOGIC: mild generalized weakness Constitutional: alert Psych: no complaints Head: normocephalic ENMT: mucosa pink and moist Neck: supple, jvd (9 cm water) Respiratory: diminished breath sounds (at bases/B) Cardiovascular: regular rate and rhythm Gastrointestinal: soft, non-tender Musculoskeletal: muscle weakness (generalized) Extremities: edema (trace/B) 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: other (No focal deficits) Medications Medications Current Medications Albuterol/ Ipratropium (Duoneb) 3 ml Q6HWA RESP THERAPY HHN Last administered on 12/09/18at 08:14; Admin Dose 3 ML; Start 11/26/18 at 08:00 Acetaminophen (Tylenol Tab) 500 mg Q6H PRN PO MILD PAIN(1-3)OR ELEVATED TEMP Last administered on 12/08/18at 21:19; Admin Dose 500 MG; Start 11/25/18 at 22:30 Albumin Human 50 ml @ 100 mls/hr WITH DIALYSIS PRN IV SBP lower than 90 mm Hg Last administered on 12/05/18at 12:07; Admin Dose 100 MLS/HR; Start 11/26/18 at 14:00 Sodium Chloride (NS) -To prime the dialy... DIRECTED FOR HD PRN IV SBP lower than 90 mm Hg ; Start 11/26/18 at 14:00 IV Flush (NS 10 ml) 10 ml PRN PRN IV IV PROTOCOL; Start 11/26/18 at 14:30 Hydralazine HCl (Apresoline) 20 mg Q6H PRN IV SBP > 160 Last administered on 11/29/18 12:33; Admin Dose 20 MG; Start 11/28/18 at 07:00 Albuterol/ Ipratropium (Duoneb) 3 ml Q4H RESP THERAPY PRN HHN SHORTNESS OF BREATH Last administered on 12/02/18 03:49; Admin Dose 3 ML; Start 11/29/18 at 01:00 Metoprolol Tartrate (Lopressor) 25 mg BID PO Last administered on 12/09/18 09:29; Admin Dose 25 MG; Start 11/30/18 at 21:00 Metoprolol Tartrate (Lopressor) 5 mg Q4H PRN IV HR>110 Hold SBP<100; Start 11/30/18 at 12:30 Haloperidol (Haldol) 2 mg Q6H PRN IV hallucinations Last administered on 12/02/18 03:21; Admin Dose 2 MG; Start 12/01/18 at 19:30 Nifedipine (Procardia Xl) 30 mg DAILY PO Last administered on 12/09/18 09:28; Admin Dose 30 MG; Start 12/07/18 at 09:00 Pantoprazole (Protonix Tab) 40 mg BID@0600,1800 PO Last administered on 12/09/18 05:18; Admin Dose 40 MG; Start 12/07/18 at 18:00 Levothyroxine Sodium (Synthroid) 150 mcg DAILY@06 PO Last administered on 12/09/18 05:18; Admin Dose 150 MCG; Start 12/08/18 at 06:00 Heparin Sodium (Porcine) (Heparin (1000 Units/ml)) 3,700 unit AFTER DIALYSIS CATHETER Last administered on 12/08/18 18:29; Admin Dose 3,700 UNIT; Start 12/08/18 at 16:00 Nystatin (Nystatin Susp) 5 ml QID PO ; Start 12/09/18 at 13:00 ALVINA GARCIA Dec 09, 2018 12:03
--- NOTE | 2018-12-09 12:51 | PN ---
Date/Time of Note Date/Time of Note DATE: 12/09/18 TIME: 12:50 Assessment/Plan VTE Prophylaxis Risk score (from [facility] [place])>0 risk: 10 SCD applied (from [facility] [place]): Yes Pharmacological prophylaxis: NA/contraindicated Pharm contraindication: bleeding Lines/Catheters IV Catheter Type (from [place]): Permcath Urinary Cath still in place: Yes Reason Cath still needed: urinary retention Assessment/Plan Hospital Course Patient is more awake comfortable, comfortable on supplemental oxygen via nasal cannula, stable vital signs, no fever. Assessment/Plan -Anemia secondary to GI bleed. Protonix IV. Heparin is stopped. Transfuse as needed. -Status post EGD with notion of erosive gastritis and moderate duodenitis as well as hiatal hernia continue PPI. Status post colonoscopy with polypectomy and notion of moderate diverticulosis on 12/07/2018. Dr. Lewis is following in gastroenterology consultation. -Lissy esophagitis, continue nystatin swish and swallow. -Acute respiratory failure, resolved. Dr. Garcia is following in pulmonology consultation. -S/p sepsis secondary to UTI. Continue antibiotics per ID. Dr. Jordan is fo llowing in infection disease consultation. -S/p septic and cardiogenic shock -s/p Left lower lobe pneumonia -Acute on chronic systolic and diastolic congestive heart failure, improved with hemodialysis. Dr. Iraheta is following in cardiology consultation. -ARF on CKD. Patient started on hemodialysis during this admission. Continue hemodialysis per nephrology. Dr Hill is following in nephrology consultation. -Pulmonary edema -Hypothyroidism, continue Synthroid. -DNR status Further recommendations based on clinical course. Plan of care discussed with Dr. Olivier. Result Diagram: 12/09/18 0516 12/09/18 0516 Results 24hrs Laboratory Tests Test 12/09/18 05:16 White Blood Count 6.5 Red Blood Count 3.09 L Hemoglobin 9.1 L Hematocrit 28.1 L Mean Corpuscular Volume 90.9 Mean Corpuscular Hemoglobin 29.4 Mean Corpuscular Hemoglobin Concent 32.4 Red Cell Distribution Width 16.4 H Platelet Count 177 Mean Platelet Volume 9.8 Immature Granulocytes % 0.800 H Neutrophils % 74.7 Lymphocytes % 11.1 L Monocytes % 10.6 Eosinophils % 2.5 Basophils % 0.3 Nucleated Red Blood Cells % 0.0 Immature Granulocytes # 0.050 H Neutrophils # 4.9 Lymphocytes # 0.7 L Monocytes # 0.7 Eosinophils # 0.2 Basophils # 0.0 Nucleated Red Blood Cells # 0.0 Sodium Level 138 Potassium Level 4.3 Chloride Level 100 Carbon Dioxide Level 29 Anion Gap 9 # Blood Urea Nitrogen 32 #H Creatinine 3.54 #H Est Glomerular Filtrat Rate mL/min Glucose Level 104 Calcium Level 8.8 Exam/Review of Systems Vital Signs Vitals Vital Signs Date Temp Pulse Resp B/P (MAP) Pulse Ox O2 O2 Flow FiO2 Time Delivery Rate 12/09/18 98.0 69 20 132/59 96 11:24 (83) 12/09/18 Nasal 2.0 08:17 Cannula 12/08/18 21 21:28 Intake and Output 12/08/18 12/08/18 12/09/18 1515:00 23:00 07:00 IntakeIntake Total 390 ml 600 ml 30 ml OutputOutput Total 60 ml 2750 ml 150 ml BalanceBalance 330 ml -2150 ml -120 ml Exam Constitutional: frail, generalized edema Neck: supple Respiratory: diminished breath sounds Cardiovascular: Irregular rhythm Gastrointestinal: soft, non-tender Extremities: normal pulses, edema 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: confused Right chest permacath Medications Medications Current Medications Albuterol/ Ipratropium (Duoneb) 3 ml Q6HWA RESP THERAPY HHN Last administered on 12/09/18at 08:14; Admin Dose 3 ML; Start 11/26/18 at 08:00 Acetaminophen (Tylenol Tab) 500 mg Q6H PRN PO MILD PAIN(1-3)OR ELEVATED TEMP Last administered on 12/08/18at 21:19; Admin Dose 500 MG; Start 11/25/18 at 22:30 Albumin Human 50 ml @ 100 mls/hr WITH DIALYSIS PRN IV SBP lower than 90 mm Hg Last administered on 12/05/18at 12:07; Admin Dose 100 MLS/HR; Start 11/26/18 at 14:00 Sodium Chloride (NS) -To prime the dialy... DIRECTED FOR HD PRN IV SBP lower than 90 mm Hg ; Start 11/26/18 at 14:00 IV Flush (NS 10 ml) 10 ml PRN PRN IV IV PROTOCOL; Start 11/26/18 at 14:30 Hydralazine HCl (Apresoline) 20 mg Q6H PRN IV SBP > 160 Last administered on 11/29/18 12:33; Admin Dose 20 MG; Start 11/28/18 at 07:00 Albuterol/ Ipratropium (Duoneb) 3 ml Q4H RESP THERAPY PRN HHN SHORTNESS OF BREATH Last administered on 12/02/18 03:49; Admin Dose 3 ML; Start 11/29/18 at 01:00 Metoprolol Tartrate (Lopressor) 25 mg BID PO Last administered on 12/09/18 09:29; Admin Dose 25 MG; Start 11/30/18 at 21:00 Metoprolol Tartrate (Lopressor) 5 mg Q4H PRN IV HR>110 Hold SBP<100; Start 11/30/18 at 12:30 Haloperidol (Haldol) 2 mg Q6H PRN IV hallucinations Last administered on 03:21; Admin Dose 2 MG; Start 12/01/18 at 19:30 Nifedipine (Procardia Xl) 30 mg DAILY PO Last administered on 12/09/18 09:28; Admin Dose 30 MG; Start 12/07/18 at 09:00 Pantoprazole (Protonix Tab) 40 mg BID@0600,1800 PO Last administered on 12/09/18 05:18; Admin Dose 40 MG; Start 12/07/18 at 18:00 Levothyroxine Sodium (Synthroid) 150 mcg DAILY@06 PO Last administered on 12/09/18 05:18; Admin Dose 150 MCG; Start 12/08/18 at 06:00 Heparin Sodium (Porcine) (Heparin (1000 Units/ml)) 3,700 unit AFTER DIALYSIS CATHETER Last administered on 12/08/18 18:29; Admin Dose 3,700 UNIT; Start at 16:00 Nystatin (Nystatin Susp) 5 ml QID PO ; Start 12/09/18 at 13:00 EDWAR VARGAS Dec 09, 2018 12:51
[2018-12-09] MEDS: NYSTATIN SUSP 5 ML CUP PO SCH ×3 (13:35→21:57)
--- NOTE | 2018-12-09 15:46 | CONS ---
Date/Time of Note Date/Time of Note DATE: 12/09/18 TIME: 15:45 Assessment/Plan Assessment/Plan Hospital Course - s/p leukocytosis on 12/05/2018 may reflect receipt of pRBC x2 units - s/p leukocytosis likely due to steroid margination 11/25/2018-12/01/2018 - s/p severe sepsis with septic shock due to UTI +/- bacteremia; s/p Dopamine - s/p UTI due to klebsiella and proteus - treated with ceftriaxone (11/25/2018- 11/29/2018) - s/p bacteremia 1/2 sets from 11/25/2018 due to coag negative Staph, likely contaminant - s/p SIRS due to acute hypoxic resp failure and acute on chronic renal failure - acute hypoxic resp failure, probably due to CHF exacerbation +/- aspiration pneumonia/pneumonitis, off bipap - acute on chronic diastolic CHF, improved after HD - s/p tachycardia c/w AF/AFL with RVR - now in sinus - s/p bradycardia to 40's, now SR - acute on chronic renal failure, started on HD on 11/26/2018 - acute on chronic anemia requiring PRBC - s/p GIB - gastritis, duodenitis, esophagitis and hiatal hernia per EGD with biopsy on 12/07/2018 - external hemorrhoids, mild to moderate diverticulosis per Colonoscopy and polypectomy 12/07/2018 - underlying COPD - CAD - hypothyroidism - TSH elevated and FT4 depressed - gout - eschar of L 4th toe, probably ischemic eschar/ischemia - acute encephalopathy due to sepsis, improving Recommendations: - Monitor Pt off systemic antibiotics. Pt completed cefepime (11/30/2018-12/02/2018) and ceftriaxone (11/25/2018-11/29/2018) - F/u biopsy/path from EGD/Colonoscopy ---> Fluconazole for esophageal candidiasis Result Diagram: 12/09/18 0516 12/09/18 0516 Results 24hrs Laboratory Tests Test 12/09/18 05:16 White Blood Count 6.5 Red Blood Count 3.09 L Hemoglobin 9.1 L Hematocrit 28.1 L Mean Corpuscular Volume 90.9 Mean Corpuscular Hemoglobin 29.4 Mean Corpuscular Hemoglobin Concent 32.4 Red Cell Distribution Width 16.4 H Platelet Count 177 Mean Platelet Volume 9.8 Immature Granulocytes % 0.800 H Neutrophils % 74.7 Lymphocytes % 11.1 L Monocytes % 10.6 Eosinophils % 2.5 Basophils % 0.3 Nucleated Red Blood Cells % 0.0 Immature Granulocytes # 0.050 H Neutrophils # 4.9 Lymphocytes # 0.7 L Monocytes # 0.7 Eosinophils # 0.2 Basophils # 0.0 Nucleated Red Blood Cells # 0.0 Sodium Level 138 Potassium Level 4.3 Chloride Level 100 Carbon Dioxide Level 29 Anion Gap 9 # Blood Urea Nitrogen 32 #H Creatinine 3.54 #H Est Glomerular Filtrat Rate mL/min Glucose Level 104 Calcium Level 8.8 Consultation Date/Type/Reason Admit Date/Time Nov 26, 2018 at 11:28 Initial Consult Date 11/27/18 Requesting Provider: KATIE MENDEZ 24 HR Interval Summary Free Text/Dictation path shows Lissy Exam/Review of Systems Vital Signs Vitals Vital Signs Date Temp Pulse Resp B/P (MAP) Pulse Ox O2 O2 Flow FiO2 Time Delivery Rate 12/09/18 97.6 72 20 115/54 95 15:12 (74) 12/09/18 Nasal 2.0 08:17 Cannula 12/08/18 21 21:28 Intake and Output 12/08/18 12/08/18 12/09/18 1515:00 23:00 07:00 IntakeIntake Total 390 ml 600 ml 30 ml OutputOutput Total 60 ml 2750 ml 150 ml BalanceBalance 330 ml -2150 ml -120 ml Exam Constitutional: alert, oriented, well developed Psych: no complaints, nl mood/affect Eyes: nl conjunctiva, EOMI, nl lids, nl sclera, PERRL Neck: supple, non-tender Cardiovascular: regular rate and rhythm, nl pulses Gastrointestinal: soft, nl liver, spleen, non-tender Medications Medications Current Medications Albuterol/ Ipratropium (Duoneb) 3 ml Q6HWA RESP THERAPY HHN Last administered on 12/09/18at 13:16; Admin Dose 3 ML; Start 11/26/18 at 08:00 Acetaminophen (Tylenol Tab) 500 mg Q6H PRN PO MILD PAIN(1-3)OR ELEVATED TEMP Last administered on 12/08/18at 21:19; Admin Dose 500 MG; Start 11/25/18 at 22:30 Albumin Human 50 ml @ 100 mls/hr WITH DIALYSIS PRN IV SBP lower than 90 mm Hg Last administered on 12/05/18 12:07; Admin Dose 100 MLS/HR; Start 11/26/18 at 14:00 Sodium Chloride (NS) -To prime the dialy... DIRECTED FOR HD PRN IV SBP lower than 90 mm Hg ; Start 11/26/18 at 14:00 IV Flush (NS 10 ml) 10 ml PRN PRN IV IV PROTOCOL; Start 11/26/18 at 14:30 Hydralazine HCl (Apresoline) 20 mg Q6H PRN IV SBP > 160 Last administered on 11/29/18 12:33; Admin Dose 20 MG; Start 11/28/18 at 07:00 Albuterol/ Ipratropium (Duoneb) 3 ml Q4H RESP THERAPY PRN HHN SHORTNESS OF BREATH Last administered on 12/02/18 03:49; Admin Dose 3 ML; Start 11/29/18 at 01:00 Metoprolol Tartrate (Lopressor) 25 mg BID PO Last administered on 12/09/18 09:29; Admin Dose 25 MG; Start 11/30/18 at 21:00 Metoprolol Tartrate (Lopressor) 5 mg Q4H PRN IV HR>110 Hold SBP<100; Start 11/30/18 at 12:30 Haloperidol (Haldol) 2 mg Q6H PRN IV hallucinations Last administered on 12/02/18 03:21; Admin Dose 2 MG; Start 12/01/18 at 19:30 Nifedipine (Procardia Xl) 30 mg DAILY PO Last administered on 12/09/18 09:28; Admin Dose 30 MG; Start 12/07/18 at 09:00 Levothyroxine Sodium (Synthroid) 150 mcg DAILY@06 PO Last administered on 12/09/18 05:18; Admin Dose 150 MCG; Start 12/08/18 at 06:00 Heparin Sodium (Porcine) (Heparin (1000 Units/ml)) 3,700 unit AFTER DIALYSIS CATHETER Last administered on 12/08/18 18:29; Admin Dose 3,700 UNIT; Start 12/08/18 at 16:00 Nystatin (Nystatin Susp) 5 ml QID PO Last administered on 12/09/18 13:35; Admin Dose 5 ML; Start 12/09/18 at 13:00 Pantoprazole (Protonix Tab) 40 mg DAILY@0600 PO ; Start 12/10/18 at 06:00 Gabapentin (Neurontin) 300 mg QHS PO ; Start 12/09/18 at 21:00 Aspirin (Halfprin) 81 mg DAILY PO ; Start 12/10/18 at 09:00; Status UNV ZAIRE CORDOVA MD Dec 09, 2018 15:46
[2018-12-09] MEDS: ACETAMINOPHEN 500 MG TAB PO PRN (21:58)
[2018-12-09] MEDS: GABAPENTIN 300 MG CAP PO SCH (21:58)
[2018-12-09] MEDS: FLUCONAZOLE 100 MG/50 ML (PMX) 50 ML IVPB SCH (22:05)
[2018-12-10] VITALS (27 sets, daily range): BP systolic 90–126; BP diastolic 45–64; PULSE 62–90; RESP 17–20
[2018-12-10] MEDS: PANTOPRAZOLE (EC) 40 MG TAB PO SCH (05:22)
[2018-12-10] MEDS: LEVOTHYROXINE 150 MCG TAB PO SCH (05:22)
[2018-12-10] MEDS: ALBUTEROL/IPRATROPIUM (NEB) 3 ML AMP HHN SCH ×3 (08:00→20:43)
[2018-12-10] MEDS: NYSTATIN SUSP 5 ML CUP PO SCH ×4 (08:03→20:38)
[2018-12-10] MEDS: METOPROLOL 25 MG TAB PO SCH ×2 (08:06→20:39)
[2018-12-10] MEDS: NIFEdipine (XL) 30 MG TAB PO SCH (08:07)
[2018-12-10] MEDS ORDERED: ASPIRIN (EC) 81 MG TAB PO SCH (09:00)
[2018-12-10] MEDS: ALBUMIN HUMAN 25% 50 ML IV PRN (10:46)
--- NOTE | 2018-12-10 12:15 | PN ---
Date/Time of Note Date/Time of Note DATE: 12/10/18 TIME: 12:09 Assessment/Plan VTE Prophylaxis Risk score (from [facility] [place])>0 risk: 7 SCD applied (from [facility] [place]): Yes Pharmacological prophylaxis: NA/contraindicated Pharm contraindication: bleeding Lines/Catheters IV [facility]ter Type (from [facility]): PICC Line Central line still needed: Yes Urinary Cath still in place: Yes Reason Cath still needed: urinary retention Assessment/Plan Hospital Course Patient is undergoing hemodialysis, patient is currently on room air, looks comfortable, afebrile. Assessment/Plan -Anemia secondary to GI bleed. Protonix IV. Heparin is stopped. Transfuse as needed. -Status post EGD with notion of erosive gastritis and moderate duodenitis as well as hiatal hernia continue PPI. Status post colonoscopy with polypectomy and notion of moderate diverticulosis on 12/07/2018. Dr. Lewis is following in gastroenterology consultation. -Lissy esophagitis, continue nystatin swish and swallow. -Acute respiratory failure, resolved. Dr. Garcia is following in pulmonology consultation. -S/p sepsis secondary to UTI. Continue antibiotics per ID. Dr. Jordan is following in infection disease consultation. -S/p septic and cardiogenic shock -s/p Left lower lobe pneumonia -Acute on chronic systolic and diastolic congestive heart failure, improved with hemodialysis. Dr. Iraheta is following in cardiology consultation. -ARF on CKD. Patient started on hemodialysis during this admission. Continue hemodialysis per nephrology. Dr Hill is following in nephrology consultation. -Pulmonary edema -Hypothyroidism, continue Synthroid. -DNR status Further recommendations based on clinical course. Plan of care discussed with Dr. Olivier. Result Diagram: 12/10/18 0506 12/10/18 0506 Results 24hrs Laboratory Tests Test 12/10/18 05:06 White Blood Count 6.0 Red Blood Count 2.95 L Hemoglobin 8.6 L Hematocrit 27.0 L Mean Corpuscular Volume 91.5 Mean Corpuscular Hemoglobin 29.2 Mean Corpuscular Hemoglobin Concent 31.9 L Red Cell Distribution Width 16.4 H Platelet Count 176 Mean Platelet Volume 9.4 Immature Granulocytes % 0.800 H Neutrophils % 73.5 Lymphocytes % 13.3 L Monocytes % 9.6 Eosinophils % 2.5 Basophils % 0.3 Nucleated Red Blood Cells % 0.0 Immature Granulocytes # 0.050 H Neutrophils # 4.4 Lymphocytes # 0.8 Monocytes # 0.6 Eosinophils # 0.2 Basophils # 0.0 Nucleated Red Blood Cells # 0.0 Sodium Level 135 Potassium Level 4.5 Chloride Level 98 Carbon Dioxide Level 26 Anion Gap 11 Blood Urea Nitrogen 46 #H Creatinine 4.64 #H Est Glomerular Filtrat Rate mL/min Glucose Level 98 Calcium Level 8.4 Exam/Review of Systems Vital Signs Vitals Vital Signs Date Temp Pulse Resp B/P (MAP) Pulse Ox O2 O2 Flow FiO2 Time Delivery Rate 12/10/18 69 11:45 12/10/18 97.8 18 115/56 97 Room Air 11:20 (75) 12/10/18 2.0 08:00 12/09/18 21 19:53 Intake and Output 12/09/18 12/09/18 12/10/18 1414:59 22:59 06:59 IntakeIntake Total 360 ml 130 ml OutputOutput Total 120 ml 100 ml BalanceBalance 240 ml 30 ml Exam Constitutional: frail, generalized edema Neck: supple Respiratory: diminished breath sounds Cardiovascular: Irregular rhythm Gastrointestinal: soft, non-tender Extremities: normal pulses, edema 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: confused Right chest permacath Medications Medications Current Medications Albuterol/ Ipratropium (Duoneb) 3 ml Q6HWA RESP THERAPY HHN Last administered on 12/09/18at 19:53; Admin Dose 3 ML; Start 11/26/18 at 08:00 Acetaminophen (Tylenol Tab) 500 mg Q6H PRN PO MILD PAIN(1-3)OR ELEVATED TEMP L ast administered on 12/09/18at 21:58; Admin Dose 500 MG; Start 11/25/18 at 22:30 Albumin Human 50 ml @ 100 mls/hr WITH DIALYSIS PRN IV SBP lower than 90 mm Hg Last administered on 12/10/18at 10:46; Admin Dose 100 MLS/HR; Start 11/26/18 at 14:00 Sodium Chloride (NS) -To prime the dialy... DIRECTED FOR HD PRN IV SBP lower than 90 mm Hg ; Start 11/26/18 at 14:00 IV Flush (NS 10 ml) 10 ml PRN PRN IV IV PROTOCOL; Start 11/26/18 at 14:30 Hydralazine HCl (Apresoline) 20 mg Q6H PRN IV SBP > 160 Last administered on 11/29/18 12:33; Admin Dose 20 MG; Start 11/28/18 at 07:00 Albuterol/ Ipratropium (Duoneb) 3 ml Q4H RESP THERAPY PRN HHN SHORTNESS OF BREATH Last administered on 12/02/18 03:49; Admin Dose 3 ML; Start 11/29/18 at 01:00 Metoprolol Tartrate (Lopressor) 25 mg BID PO Last administered on 12/09/18 21:57; Admin Dose 25 MG; Start 11/30/18 at 21:00 Metoprolol Tartrate (Lopressor) 5 mg Q4H PRN IV HR>110 Hold SBP<100; Start 11/30/18 at 12:30 Haloperidol (Haldol) 2 mg Q6H PRN IV hallucinations Last administered on 12/02/18 03:21; Admin Dose 2 MG; Start 12/01/18 at 19:30 Nifedipine (Procardia Xl) 30 mg DAILY PO Last administered on 12/09/18 09:28; Admin Dose 30 MG; Start 12/07/18 at 09:00 Levothyroxine Sodium (Synthroid) 150 mcg DAILY@06 PO Last administered on 12/10/18 05:22; Admin Dose 150 MCG; Start 12/08/18 at 06:00 Heparin Sodium (Porcine) (Heparin (1000 Units/ml)) 3,700 unit AFTER DIALYSIS CATHETER Last administered on 12/08/18 18:29; Admin Dose 3,700 UNIT; Start 12/08/18 at 16:00 Nystatin (Nystatin Susp) 5 ml QID PO Last administered on 12/10/18 08:03; Admin Dose 5 ML; Start 12/09/18 at 13:00 Pantoprazole (Protonix Tab) 40 mg DAILY@0600 PO Last administered on 12/10/18 05:22; Admin Dose 40 MG; Start 12/10/18 at 06:00 Gabapentin (Neurontin) 300 mg QHS PO Last administered on 12/09/18 21:58; Admin Dose 300 MG; Start 12/09/18 at 21:00 Fluconazole/ Sodium Chloride 50 ml @ 50 mls/hr Q24H IVPB Last administered on 12/09/18 22:05; Admin Dose 50 MLS/HR; Start 12/09/18 at 17:30 Miscellaneous Information (*Order Clarification Bulletin) MEDICATION REQUIRES CLARIFICATION: Q8H XX ; Start 12/10/18 at 11:00 Clopidogrel Bisulfate (plaVIX) 75 mg DAILY GTB ; Start 12/11/18 at 09:00 EDWAR VARGAS Dec 10, 2018 12:15
--- NOTE | 2018-12-10 12:37 | CONS ---
Date/Time of Note Date/Time of Note DATE: 12/10/18 TIME: 12:37 Assessment/Plan Assessment/Plan Assessment/Plan 1. Oliguric Acute kindey injury on CKD III due to ATN from septic shock, 2. Acute uremic encephalopathy 3. Acute hyperkalemia- resolved 4. Severe metabolic acidosis 5. Septic shock on pressors 2/2 UTI and bacteremia 6. acute hypoxemic respiraotry failure on BIPAP 7. acute on chronic,systolic and diastolic heart failure 8. H/o HTN 9. H/o COPD 10. Acute GI bleeding s/p 3 U PRBC , s/p EGD and Colonoscopy Plan: started on HD on 11/26/17- s/p Right chest permacath on 12/08/18- s/p HD today 1 L removed, will keep pt on Fri, , Friday schedule Outpatient HD placement has been confirmed at [facility] - Fri, friday at 4 pm IV abx as per PMD, renally dose all abx and monitor electrolytes will follow up Result Diagram: 12/10/18 0506 12/10/18 0506 Results 24hrs Laboratory Tests Test 12/10/18 05:06 White Blood Count 6.0 Red Blood Count 2.95 L Hemoglobin 8.6 L Hematocrit 27.0 L Mean Corpuscular Volume 91.5 Mean Corpuscular Hemoglobin 29.2 Mean Corpuscular Hemoglobin Concent 31.9 L Red Cell Distribution Width 16.4 H Platelet Count 176 Mean Platelet Volume 9.4 Immature Granulocytes % 0.800 H Neutrophils % 73.5 Lymphocytes % 13.3 L Monocytes % 9.6 Eosinophils % 2.5 Basophils % 0.3 Nucleated Red Blood Cells % 0.0 Immature Granulocytes # 0.050 H Neutrophils # 4.4 Lymphocytes # 0.8 Monocytes # 0.6 Eosinophils # 0.2 Basophils # 0.0 Nucleated Red Blood Cells # 0.0 Sodium Level 135 Potassium Level 4.5 Chloride Level 98 Carbon Dioxide Level 26 Anion Gap 11 Blood Urea Nitrogen 46 #H Creatinine 4.64 #H Est Glomerular Filtrat Rate mL/min Glucose Level 98 Calcium Level 8.4 Consultation Date/Type/Reason Admit Date/Time Nov 26, 2018 at 11:28 Initial Consult Date 11/26/18 Type of Consult NEPHROLOGY Requesting Provider: KATIE MENDEZ Exam/Review of Systems Vital Signs Vitals Vital Signs Date Temp Pulse Resp B/P (MAP) Pulse Ox O2 O2 Flow FiO2 Time Delivery Rate 12/10/18 85 12:30 12/10/18 97.8 18 115/56 97 Room Air 11:20 (75) 12/10/18 2.0 08:00 12/09/18 21 19:53 Intake and Output 12/09/18 12/09/18 12/10/18 1515:00 23:00 07:00 IntakeIntake Total 360 ml 130 ml OutputOutput Total 120 ml 100 ml BalanceBalance 240 ml 30 ml Exam Constitutional: alert, well developed Respiratory: diminished breath sounds (at bases bilaterlly), + right chest permacath Cardiovascular: nl pulses, other (s1s2) Gastrointestinal: soft, non-tender Musculoskeletal: muscle weakness Extremities: normal pulses 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: nl speech, other (alert/responsive) Medications Medications Current Medications Albuterol/ Ipratropium (Duoneb) 3 ml Q6HWA RESP THERAPY HHN Last administered on 12/09/18at 19:53; Admin Dose 3 ML; Start 11/26/18 at 08:00 Acetaminophen (Tylenol Tab) 500 mg Q6H PRN PO MILD PAIN(1-3)OR ELEVATED TEMP Last administered on 12/09/18at 21:58; Admin Dose 500 MG; Start 11/25/18 at 22:30 Albumin Human 50 ml @ 100 mls/hr WITH DIALYSIS PRN IV SBP lower than 90 mm Hg Last administered on 12/10/18at 10:46; Admin Dose 100 MLS/HR; Start 11/26/18 at 14:00 Sodium Chloride (NS) -To prime the dialy... DIRECTED FOR HD PRN IV SBP lower than 90 mm Hg ; Start 11/26/18 at 14:00 IV Flush (NS 10 ml) 10 ml PRN PRN IV IV PROTOCOL; Start 11/26/18 at 14:30 Hydralazine HCl (Apresoline) 20 mg Q6H PRN IV SBP > 160 Last administered on 11/29/18at 12:33; Admin Dose 20 MG; Start 11/28/18 at 07:00 Albuterol/ Ipratropium (Duoneb) 3 ml Q4H RESP THERAPY PRN HHN SHORTNESS OF BREATH Last administered on 12/02/18 03:49; Admin Dose 3 ML; Start 11/29/18 at 01:00 Metoprolol Tartrate (Lopressor) 25 mg BID PO Last administered on 12/09/18 21:57; Admin Dose 25 MG; Start 11/30/18 at 21:00 Metoprolol Tartrate (Lopressor) 5 mg Q4H PRN IV HR>110 Hold SBP<100; Start 11/30/18 at 12:30 Haloperidol (Haldol) 2 mg Q6H PRN IV hallucinations Last administered on 12/02/18 03:21; Admin Dose 2 MG; Start 12/01/18 at 19:30 Nifedipine (Procardia Xl) 30 mg DAILY PO Last administered on 12/09/18 09:28; Admin Dose 30 MG; Start 12/07/18 at 09:00 Levothyroxine Sodium (Synthroid) 150 mcg DAILY@06 PO Last administered on 12/10/18 05:22; Admin Dose 150 MCG; Start 12/08/18 at 06:00 Heparin Sodium (Porcine) (Heparin (1000 Units/ml)) 3,700 unit AFTER DIALYSIS CATHETER Last administered on 12/08/18 18:29; Admin Dose 3,700 UNIT; Start 12/08/18 at 16:00 Nystatin (Nystatin Susp) 5 ml QID PO Last administered on 12/10/18 12:10; Admin Dose 5 ML; Start 12/09/18 at 13:00 Pantoprazole (Protonix Tab) 40 mg DAILY@0600 PO Last administered on 12/10/18 05:22; Admin Dose 40 MG; Start 12/10/18 at 06:00 Gabapentin (Neurontin) 300 mg QHS PO Last administered on 12/09/18 21:58; Admin Dose 300 MG; Start 12/09/18 at 21:00 Fluconazole/ Sodium Chloride 50 ml @ 50 mls/hr Q24H IVPB Last administered on 12/09/18 22:05; Admin Dose 50 MLS/HR; Start 12/09/18 at 17:30 Miscellaneous Information (*Order Clarification Bulletin) MEDICATION REQUIRES CLARIFICATION: Q8H XX ; Start 12/10/18 at 11:00 GI HARTMAN MD Dec 10, 2018 12:37
--- NOTE | 2018-12-10 12:42 | CONS ---
Date/Time of Note Date/Time of Note DATE: 12/10/18 TIME: 12:40 Assessment/Plan Assessment/Plan Hospital Course IMPRESSION: 1. Shock, on dopamine pressor support at this time with previously preserved EF by most recent echo September 2018 of 60% to 65%.-improved off dopamine and tolerating BP medications 2. Abnormal echocardiogram, assess for acute coronary syndrome. 3. Congestive heart failure, diastolic, acute on chronic, in the setting of renal failure. 4. Renal failure now on HD 5. Anemia-requiring transfusions 6. Hyponatremia-improved 7. Urinary tract infection. 8. Tachycardia-c/w AF/AFL with RVR 9. Bradycardia- to 40's when converts to SR 10. Esophagitis-by endoscopy celeste REcc: -Tele -Continue abx's and f/u cx data -Continue CCB/BB as tolerated -Follow volume status clsoely -Follow for recurrent significant bradycardia -Continue steroids/bronchodilators -HD for volume removal s/p placement of guanako catheter -started on nystatin Result Diagram: 12/10/18 0506 12/10/18 0506 Results 24hrs Laboratory Tests Test 12/10/18 05:06 White Blood Count 6.0 Red Blood Count 2.95 L Hemoglobin 8.6 L Hematocrit 27.0 L Mean Corpuscular Volume 91.5 Mean Corpuscular Hemoglobin 29.2 Mean Corpuscular Hemoglobin Concent 31.9 L Red Cell Distribution Width 16.4 H Platelet Count 176 Mean Platelet Volume 9.4 Immature Granulocytes % 0.800 H Neutrophils % 73.5 Lymphocytes % 13.3 L Monocytes % 9.6 Eosinophils % 2.5 Basophils % 0.3 Nucleated Red Blood Cells % 0.0 Immature Granulocytes # 0.050 H Neutrophils # 4.4 Lymphocytes # 0.8 Monocytes # 0.6 Eosinophils # 0.2 Basophils # 0.0 Nucleated Red Blood Cells # 0.0 Sodium Level 135 Potassium Level 4.5 Chloride Level 98 Carbon Dioxide Level 26 Anion Gap 11 Blood Urea Nitrogen 46 #H Creatinine 4.64 #H Est Glomerular Filtrat Rate mL/min Glucose Level 98 Calcium Level 8.4 Consultation Date/Type/Reason Admit Date/Time Nov 26, 2018 at 11:28 Initial Consult Date 11/26/18 Type of Consult cardiology Reason for Consultation CHF Requesting Provider: KATIE MENDEZ Exam/Review of Systems Vital Signs Vitals Vital Signs Date Temp Pulse Resp B/P (MAP) Pulse Ox O2 O2 Flow FiO2 Time Delivery Rate 12/10/18 85 12:30 12/10/18 97.8 18 115/56 97 Room Air 11:20 (75) 12/10/18 2.0 08:00 12/09/18 21 19:53 Intake and Output 12/09/18 12/09/18 12/10/18 1515:00 23:00 07:00 IntakeIntake Total 360 ml 130 ml OutputOutput Total 120 ml 100 ml BalanceBalance 240 ml 30 ml Exam Review of Systems: CONSTITUTIONAL: No fevers, chills. PULMONARY: No sob CARDIOVASCULAR: No chest pain/palpitations GASTROINTESTINAL: No nausea/vomiting. GENITOURINARY: No hematuria/dysuria. MUSCULOSKELETAL: No myagias/arthalgias. PSYCHIATRIC: The patient denies depression. NEUROLOGIC: No weakness Constitutional: alert Psych: no complaints Head: normocephalic ENMT: mucosa pink and moist Neck: supple, jvd (9 cm water) Respiratory: diminished breath sounds (at bases/B) Cardiovascular: regular rate and rhythm Gastrointestinal: soft, non-tender Musculoskeletal: muscle tone (normal) Extremities: edema (trace/B) 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: other (No focal deficits) Medications Medications Current Medications Albuterol/ Ipratropium (Duoneb) 3 ml Q6HWA RESP THERAPY HHN Last administered on 12/09/18at 19:53; Admin Dose 3 ML; Start 11/26/18 at 08:00 Acetaminophen (Tylenol Tab) 500 mg Q6H PRN PO MILD PAIN(1-3)OR ELEVATED TEMP Last administered on 12/09/18at 21:58; Admin Dose 500 MG; Start 11/25/18 at 22:30 Albumin Human 50 ml @ 100 mls/hr WITH DIALYSIS PRN IV SBP lower than 90 mm Hg Last administered on 12/10/18at 10:46; Admin Dose 100 MLS/HR; Start 11/26/18 at 14:00 Sodium Chloride (NS) -To prime the dialy... DIRECTED FOR HD PRN IV SBP lower than 90 mm Hg ; Start 11/26/18 at 14:00 IV Flush (NS 10 ml) 10 ml PRN PRN IV IV PROTOCOL; Start 11/26/18 at 14:30 Hydralazine HCl (Apresoline) 20 mg Q6H PRN IV SBP > 160 Last administered on 11/29/18 12:33; Admin Dose 20 MG; Start 11/28/18 at 07:00 Albuterol/ Ipratropium (Duoneb) 3 ml Q4H RESP THERAPY PRN HHN SHORTNESS OF BREATH Last administered on 12/02/18 03:49; Admin Dose 3 ML; Start 11/29/18 at 01:00 Metoprolol Tartrate (Lopressor) 25 mg BID PO Last administered on 12/09/18 21:57; Admin Dose 25 MG; Start 11/30/18 at 21:00 Metoprolol Tartrate (Lopressor) 5 mg Q4H PRN IV HR>110 Hold SBP<100; Start 11/30/18 at 12:30 Haloperidol (Haldol) 2 mg Q6H PRN IV hallucinations Last administered on 12/02/18 03:21; Admin Dose 2 MG; Start 12/01/18 at 19:30 Nifedipine (Procardia Xl) 30 mg DAILY PO Last administered on 12/09/18 09:28; Admin Dose 30 MG; Start 12/07/18 at 09:00 Levothyroxine Sodium (Synthroid) 150 mcg DAILY@06 PO Last administered on 12/10/18 05:22; Admin Dose 150 MCG; Start 12/08/18 at 06:00 Heparin Sodium (Porcine) (Heparin (1000 Units/ml)) 3,700 unit AFTER DIALYSIS CATHETER Last administered on 12/08/18 18:29; Admin Dose 3,700 UNIT; Start 12/08/18 at 16:00 Nystatin (Nystatin Susp) 5 ml QID PO Last administered on 12/10/18 12:10; Admin Dose 5 ML; Start 12/09/18 at 13:00 Pantoprazole (Protonix Tab) 40 mg DAILY@0600 PO Last administered on 12/10/18 05:22; Admin Dose 40 MG; Start 12/10/18 at 06:00 Gabapentin (Neurontin) 300 mg QHS PO Last administered on 12/09/18 21:58; Admin Dose 300 MG; Start 12/09/18 at 21:00 Fluconazole/ Sodium Chloride 50 ml @ 50 mls/hr Q24H IVPB Last administered on 1/16/19at 22:05; Admin Dose 50 MLS/HR; Start 12/09/18 at 17:30 Miscellaneous Information (*Order Clarification Bulletin) MEDICATION REQUIRES CLARIFICATION: Q8H XX ; Start 12/10/18 at 11:00 ALVINA GARCIA Dec 10, 2018 12:42
[2018-12-10] MEDS: HEPARIN 1000 UNITS/ML 10 ML INJ CATHETER SCH (13:01)
[2018-12-10] MEDS: FLUCONAZOLE 100 MG/50 ML (PMX) 50 ML IVPB SCH (16:56)
--- NOTE | 2018-12-10 17:35 | CONS ---
Date/Time of Note Date/Time of Note DATE: 12/10/18 TIME: 17:35 Assessment/Plan Assessment/Plan Hospital Course - s/p leukocytosis on 12/05/2018 may reflect receipt of pRBC x2 units - s/p leukocytosis likely due to steroid margination 11/25/2018-12/01/2018 - s/p severe sepsis with septic shock due to UTI +/- bacteremia; s/p Dopamine - s/p UTI due to klebsiella and proteus - treated with ceftriaxone (11/25/2018- 11/29/2018) - s/p bacteremia 1/2 sets from 11/25/2018 due to coag negative Staph, likely contaminant - s/p SIRS due to acute hypoxic resp failure and acute on chronic renal failure - acute hypoxic resp failure, probably due to CHF exacerbation +/- aspiration pneumonia/pneumonitis, off bipap - acute on chronic diastolic CHF, improved after HD - s/p tachycardia c/w AF/AFL with RVR - now in sinus - s/p bradycardia to 40's, now SR - acute on chronic renal failure, started on HD on 11/26/2018 - s/p R IJ permacath placement 12/08/2018 - acute on chronic anemia requiring PRBC - s/p upper GIB - gastritis, duodenitis, esophagitis and moderate size hiatal hernia per EGD with biopsy on 12/07/2018; Path +fungal yeast in esophagus - esophageal candidiasis - on Fluconazole and po nystatin - external hemorrhoids, mild to moderate diverticulosis per Colonoscopy and polypectomy 12/07/2018; Path negative for dysplasia or malignancy - intertrigo in groin area - underlying COPD - CAD - hypothyroidism - TSH elevated and FT4 depressed - gout - eschar of L 4th toe, probably ischemic eschar/ischemia - acute encephalopathy due to sepsis, improving Recommendations: - Continue IV fluconazole (12/09/2018-) for esophageal candidiasis. Pt is also on po nystatin - Pt completed cefepime (11/30/2018-12/02/2018) and ceftriaxone (11/25/2018-11/29/2018) - Start nystatin powder (12/10/2018-) for intertrigo Management d/w patient, NARINDER Goncalves, and with Dr. Haile Result Diagram: 12/10/18 0506 12/10/18 0506 Results 24hrs PATHOLOGY 12/07/2018: A-Gastric biopsy B-Esophageal biopsy C-Cecal polyp biopsy CLINICAL: Anemia; gastrointestinal bleed; rule H. pylori (A); rule out Ramirez ett's (B) GROSS EXAMINATION: A-Received in formalin are five fragments of sheridan-pink, soft tissue that measure from less than 0.1 cm in greatest dimension up to 0.6 x 0.2 x 0.1 cm. Totally submitted in cassette A. B-Received in formalin are two fragments of sheridan-pink, soft tissue that measure less than 0.1 cm in greatest dimension and 0.6 x 0.2 x 0.1 cm. Totally submitted in cassette B. C-Received in formalin is a fragment of vela-sheridan, soft tissue that measures 0.6 x 0.2 x 0.1 cm. Totally submitted in cassette C. MICROSCOPIC DIAGNOSIS: A-Stomach, biopsy: -- Oxyntic mucosa showing no significant histopathological abnormality. B-Esophagus, biopsy: -- Squamous mucosa showing mild acute inflammation and separate fragments of inflammatory exudate comprised of histiocytes, lymphocytes and neutrophils. -- No glandular mucosa is identified. -- Fungal yeast and pseudohyphae compatible with celeste species are identified in Alcian Blue/PAS stain (positive control concurrently reviewed). -- No evidence of dysplasia or malignancy. C-Cecum, polyp, biopsy: -- Diminutive tubular adenoma. -- No evidence of high grade dysplasia or malignancy. Laboratory Tests Test 12/10/18 05:06 White Blood Count 6.0 Red Blood Count 2.95 L Hemoglobin 8.6 L Hematocrit 27.0 L Mean Corpuscular Volume 91.5 Mean Corpuscular Hemoglobin 29.2 Mean Corpuscular Hemoglobin Concent 31.9 L Red Cell Distribution Width 16.4 H Platelet Count 176 Mean Platelet Volume 9.4 Immature Granulocytes % 0.800 H Neutrophils % 73.5 Lymphocytes % 13.3 L Monocytes % 9.6 Eosinophils % 2.5 Basophils % 0.3 Nucleated Red Blood Cells % 0.0 Immature Granulocytes # 0.050 H Neutrophils # 4.4 Lymphocytes # 0.8 Monocytes # 0.6 Eosinophils # 0.2 Basophils # 0.0 Nucleated Red Blood Cells # 0.0 Sodium Level 135 Potassium Level 4.5 Chloride Level 98 Carbon Dioxide Level 26 Anion Gap 11 Blood Urea Nitrogen 46 #H Creatinine 4.64 #H Est Glomerular Filtrat Rate mL/min Glucose Level 98 Calcium Level 8.4 Consultation Date/Type/Reason Admit Date/Time Nov 26, 2018 at 11:28 Initial Consult Date 11/27/18 Type of Consult Infectious Disease Requesting Provider: KATIE MENDEZ 24 HR Interval Summary Free Text/Dictation Pt c/o with probable fungal infection in perineal area per d/w nursing. Pt c/o neck pain likely r/t R IJ HD catheter. Declines pain medicine. Denies SOB, n/v/d. Exam/Review of Systems Vital Signs Vitals Vital Signs Date Temp Pulse Resp B/P (MAP) Pulse Ox O2 O2 Flow FiO2 Time Delivery Rate 12/10/18 98.0 62 18 109/59 98 Room Air 15:27 (76) 12/10/18 21 13:51 12/10/18 2.0 08:00 Intake and Output 12/09/18 12/09/18 12/10/18 1515:00 23:00 07:00 IntakeIntake Total 360 ml 130 ml OutputOutput Total 120 ml 100 ml BalanceBalance 240 ml 30 ml Exam Constitutional: alert, oriented, well developed, frail, obese Psych: no complaints, nl mood/affect Head: normocephalic, atraumatic Eyes: nl conjunctiva, nl lids, nl sclera ENMT: nl external ears & nose, nl nasal mucosa & septum, mucosa pink and moist (poor dentition. No obvious thrush) Neck: supple (able to flex without difficulty ), other (R IJ HD catheter c/d/i) Respiratory: clear to auscultation, normal air movement, diminished breath sounds (at bases) Cardiovascular: regular rate and rhythm, nl pulses Gastrointestinal: soft, non-tender, other (scattered ecchymosis on abdomen) Genitourinary - Female: other (Alvarado in place with small amount of yellow urine) Musculoskeletal: nl extremities to inspection Extremities: normal pulses, other (LUE PICC c/d/i) 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: nl mental status, nl speech Skin: nl turgor, rash or lesions (fungal rash noted on perinal area and upper medial thighs), ecchymosis (Scattered ecchymosis on BUE, R>L) Medications Medications Current Medications Albuterol/ Ipratropium (Duoneb) 3 ml Q6HWA RESP THERAPY HHN Last administered on 12/10/18at 13:44; Admin Dose 3 ML; Start 11/26/18 at 08:00 Acetaminophen (Tylenol Tab) 500 mg Q6H PRN PO MILD PAIN(1-3)OR ELEVATED TEMP Last administered on 12/09/18at 21:58; Admin Dose 500 MG; Start 11/25/18 at 22:30 Albumin Human 50 ml @ 100 mls/hr WITH DIALYSIS PRN IV SBP lower than 90 mm Hg Last administered on 12/10/18at 10:46; Admin Dose 100 MLS/HR; Start 11/26/18 at 14:00 Sodium Chloride (NS) -To prime the dialy... DIRECTED FOR HD PRN IV SBP lower than 90 mm Hg ; Start 11/26/18 at 14:00 IV Flush (NS 10 ml) 10 ml PRN PRN IV IV PROTOCOL; Start 11/26/18 at 14:30 Hydralazine HCl (Apresoline) 20 mg Q6H PRN IV SBP > 160 Last administered on 11/29/18at 12:33; Admin Dose 20 MG; Start 11/28/18 at 07:00 Albuterol/ Ipratropium (Duoneb) 3 ml Q4H RESP THERAPY PRN HHN SHORTNESS OF BREATH Last administered on 12/02/18 03:49; Admin Dose 3 ML; Start 11/29/18 at 01:00 Metoprolol Tartrate (Lopressor) 25 mg BID PO Last administered on 12/09/18at 21:57; Admin Dose 25 MG; Start 11/30/18 at 21:00 Metoprolol Tartrate (Lopressor) 5 mg Q4H PRN IV HR>110 Hold SBP<100; Start 11/30/18 at 12:30 Haloperidol (Haldol) 2 mg Q6H PRN IV hallucinations Last administered on 12/02/18 03:21; Admin Dose 2 MG; Start 12/01/18 at 19:30 Nifedipine (Procardia Xl) 30 mg DAILY PO Last administered on 12/09/18at 09:28; Admin Dose 30 MG; Start 12/07/18 at 09:00 Levothyroxine Sodium (Synthroid) 150 mcg DAILY@06 PO Last administered on 12/10/18 05:22; Admin Dose 150 MCG; Start 12/08/18 at 06:00 Heparin Sodium (Porcine) (Heparin (1000 Units/ml)) 3,700 unit AFTER DIALYSIS CATHETER Last administered on 12/10/18at 13:01; Admin Dose 3,700 UNIT; Start 12/08/18 at 16:00 Nystatin (Nystatin Susp) 5 ml QID PO Last administered on 12/10/18at 16:56; Admin Dose 5 ML; Start 12/09/18 at 13:00 Pantoprazole (Protonix Tab) 40 mg DAILY@0600 PO Last administered on 12/10/18at 05:22; Admin Dose 40 MG; Start 12/10/18 at 06:00 Gabapentin (Neurontin) 300 mg QHS PO Last administered on 12/09/18at 21:58; Admin Dose 300 MG; Start 12/09/18 at 21:00 Fluconazole/ Sodium Chloride 50 ml @ 50 mls/hr Q24H IVPB Last administered on 12/10/18at 16:56; Admin Dose 50 MLS/HR; Start 12/09/18 at 17:30 Miscellaneous Information (*Order Clarification Bulletin) MEDICATION REQUIRES CLARIFICATION: Q8H XX ; Start 12/10/18 at 11:00 Imaging Imaging CXR 12/08/2018: IMPRESSION: Right-sided dialysis catheter and left-sided PICC line in satisfactory position. Minimal interstitial edema suggesting cardiopulmonary congestion is improving. No pneumothorax MING HUSTON NP Dec 10, 2018 17:35
[2018-12-10] MEDS: GABAPENTIN 300 MG CAP PO SCH (20:38)
[2018-12-10] MEDS: ACETAMINOPHEN 500 MG TAB PO PRN (20:39)
[2018-12-10] MEDS: NYSTATIN 30 GM POWDER BTL TOP SCH (20:40)
[2018-12-11] VITALS (12 sets, daily range): BP systolic 95–128; BP diastolic 46–62; PULSE 60–84; RESP 18
[2018-12-11] MEDS: PANTOPRAZOLE (EC) 40 MG TAB PO SCH (05:44)
[2018-12-11] MEDS: LEVOTHYROXINE 150 MCG TAB PO SCH (05:44)
[2018-12-11] MEDS: ALBUTEROL/IPRATROPIUM (NEB) 3 ML AMP HHN SCH ×3 (08:03→21:11)
[2018-12-11] MEDS: NYSTATIN SUSP 5 ML CUP PO SCH ×4 (08:32→21:19)
[2018-12-11] MEDS: NIFEdipine (XL) 30 MG TAB PO SCH ×2 (08:33→08:35)
[2018-12-11] MEDS: METOPROLOL 25 MG TAB PO SCH ×3 (08:34→21:20)
[2018-12-11] MEDS: NYSTATIN 30 GM POWDER BTL TOP SCH ×2 (08:36→21:19)
[2018-12-11] MEDS ORDERED: CLOPIDOGREL 75 MG TAB GTB SCH (09:00)
--- NOTE | 2018-12-11 09:03 | CONS ---
Date/Time of Note Date/Time of Note DATE: 12/11/18 TIME: 09:01 Assessment/Plan Assessment/Plan Hospital Course 88 yo female presented with SOB, found to have septic and cardiogenic shock, stable on telemetry floor with acute drop in HH with positive FOB, S/P EGD/colon 12/07/18 1. Anemia -acute on chronic secondary to blood loss -pos FOB -hematochezia, no melena -s/p egd/colon 2. Acute respiratory failure -resolved -followed by Dr. Garcia 3. VRE in urine -pt was septic, stable now, ID following 4. S/P septic and cardiogenic shock 5. CKD III with acute renal failure -started on HD during this admission. -Dr Hill, nephrology 6. Acute on chronic diastolic CHF -Dr Iraheat from cardiology 7. Left lower lobe pneumonia 8. Hypothyroidism -management by primary 9. DNR status 10. External hemorrhoid 11. Moderate diverticulosis 12. Polyp, s/p polypectomy 13. 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 5cm hiatal hernia 15. Erosive gastritis 16. Moderate duodenitis Pathology 12/08: A-Stomach, biopsy: -- Oxyntic mucosa showing no significant histopathological abnormality. B-Esophagus, biopsy: -- Squamous mucosa showing mild acute inflammation and separate fragments of inflammatory exudate comprised of histiocytes, lymphocytes and neutrophils. -- No glandular mucosa is identified. -- Fungal yeast and pseudohyphae compatible with celeste species are identified in Alcian Blue/PAS stain (positive control concurrently reviewed). -- No evidence of dysplasia or malignancy. C-Cecum, polyp, biopsy: -- Diminutive tubular adenoma. -- No evidence of high grade dysplasia or malignancy. Plan: Continue with Nystatin swish and swallow High fiber diet PPI BID Diet as tolerated Pt examined and plan of care discussed with Dr. Lewis Result Diagram: 12/10/18 0506 12/10/18 0506 Results 24hrs Laboratory Tests Test 12/11/18 07:14 Lab Scanned Report BLOOD TRANSFUSION Consultation Date/Type/Reason Admit Date/Time Nov 26, 2018 at 11:28 Initial Consult Date 11/27/18 Requesting Provider: KATIE MENDEZ 24 HR Interval Summary Free Text/Dictation Pt denies N/V and abd pain. States her tongue swollen. Helped pt with nystatin swish and swallow. Exam/Review of Systems Vital Signs Vitals Vital Signs Date Temp Pulse Resp B/P (MAP) Pulse Ox O2 O2 Flow FiO2 Time Delivery Rate 12/11/18 95 21 08:07 12/11/18 68 20 08:06 12/11/18 Nasal 2.0 07:42 Cannula 12/11/18 97.4 119/58 07:35 (78) Intake and Output 12/10/18 12/10/18 12/11/18 1414:59 22:59 06:59 IntakeIntake Total 600 ml 300 ml OutputOutput Total 1450 ml 150 ml 100 ml BalanceBalance -1450 ml 450 ml 200 ml Exam Constitutional: alert, oriented Psych: no complaints Head: normocephalic Eyes: nl sclera, PERRL ENMT: other (toungue swollen and red) Respiratory: diminished breath sounds Cardiovascular: regular rate and rhythm Gastrointestinal: soft, non-tender Extremities: other (BLE mild edema) 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: nl mental status Medications Medications Current Medications Albuterol/ Ipratropium (Duoneb) 3 ml Q6HWA RESP THERAPY HHN Last administered on 12/11/18at 08:03; Admin Dose 3 ML; Start 11/26/18 at 08:00 Acetaminophen (Tylenol Tab) 500 mg Q6H PRN PO MILD PAIN(1-3)OR ELEVATED TEMP Last administered on 12/10/18at 20:39; Admin Dose 500 MG; Start 11/25/18 at 22:30 Albumin Human 50 ml @ 100 mls/hr WITH DIALYSIS PRN IV SBP lower than 90 mm Hg Last administered on 12/10/18at 10:46; Admin Dose 100 MLS/HR; Start 11/26/18 at 14:00 Sodium Chloride (NS) -To prime the dialy... DIRECTED FOR HD PRN IV SBP lower than 90 mm Hg ; Start 11/26/18 at 14:00 IV Flush (NS 10 ml) 10 ml PRN PRN IV IV PROTOCOL; Start 11/26/18 at 14:30 Hydralazine HCl (Apresoline) 20 mg Q6H PRN IV SBP > 160 Last administered on 11/29/18at 12:33; Admin Dose 20 MG; Start 11/28/18 at 07:00 Albuterol/ Ipratropium (Duoneb) 3 ml Q4H RESP THERAPY PRN HHN SHORTNESS OF BREATH Last administered on 12/02/18 03:49; Admin Dose 3 ML; Start 11/29/18 at 01:00 Metoprolol Tartrate (Lopressor) 25 mg BID PO Last administered on 12/10/18 20:39; Admin Dose 25 MG; Start 11/30/18 at 21:00 Metoprolol Tartrate (Lopressor) 5 mg Q4H PRN IV HR>110 Hold SBP<100; Start 11/30/18 at 12:30 Haloperidol (Haldol) 2 mg Q6H PRN IV hallucinations Last administered on 03:21; Admin Dose 2 MG; Start 12/01/18 at 19:30 Nifedipine (Procardia Xl) 30 mg DAILY PO Last administered on 12/09/18 09:28; Admin Dose 30 MG; Start 12/07/18 at 09:00 Levothyroxine Sodium (Synthroid) 150 mcg DAILY@06 PO Last administered on 12/11/18 05:44; Admin Dose 150 MCG; Start 12/08/18 at 06:00 Heparin Sodium (Porcine) (Heparin (1000 Units/ml)) 3,700 unit AFTER DIALYSIS CATHETER Last administered on 12/10/18 13:01; Admin Dose 3,700 UNIT; Start 12/08/18 at 16:00 Nystatin (Nystatin Susp) 5 ml QID PO Last administered on 12/11/18 08:32; Admin Dose 5 ML; Start 12/09/18 at 13:00 Pantoprazole (Protonix Tab) 40 mg DAILY@0600 PO Last administered on 12/11/18 05:44; Admin Dose 40 MG; Start 12/10/18 at 06:00 Gabapentin (Neurontin) 300 mg QHS PO Last administered on 12/10/18 20:38; Admin Dose 300 MG; Start 12/09/18 at 21:00 Fluconazole/ Sodium Chloride 50 ml @ 50 mls/hr Q24H IVPB Last administered on 12/10/18 16:56; Admin Dose 50 MLS/HR; Start 12/09/18 at 17:30 Miscellaneous Information (*Order Clarification Bulletin) MEDICATION REQUIRES CLARIFICATION: Q8H XX ; Start 12/10/18 at 11:00 Nystatin (Nystatin Powder) 1 applic BID TOP Last administered on 12/11/18at 08:36; Admin Dose 1 APPLIC; Start 12/10/18 at 21:00 LAURA HERNANDEZ Dec 11, 2018 09:03
--- NOTE | 2018-12-11 12:29 | CONS ---
Date/Time of Note Date/Time of Note DATE: 12/11/18 TIME: 12:28 Assessment/Plan Assessment/Plan Assessment/Plan 1. Oliguric Acute kindey injury on CKD III due to ATN from septic shock, 2. Acute uremic encephalopathy 3. Acute hyperkalemia- resolved 4. Severe metabolic acidosis 5. Septic shock on pressors 2/2 UTI and bacteremia 6. acute hypoxemic respiraotry failure on BIPAP 7. acute on chronic,systolic and diastolic heart failure 8. H/o HTN 9. H/o COPD 10. Acute GI bleeding s/p 3 U PRBC , s/p EGD and Colonoscopy Plan: started on HD on 11/26/17- s/p Right chest permacath on 12/08/18- Plan for HD on friday then, will keep pt on Fri, , Friday schedule Outpatient HD placement has been confirmed at [facility] - Fri, friday at 4 pm IV abx as per PMD, renally dose all abx and monitor electrolytes will follow up Result Diagram: 12/10/18 0506 12/10/18 0506 Results 24hrs Laboratory Tests Test 12/11/18 07:14 Lab Scanned Report BLOOD TRANSFUSION Consultation Date/Type/Reason Admit Date/Time Nov 26, 2018 at 11:28 Initial Consult Date 11/26/18 Type of Consult NEPHROLOGY Requesting Provider: KATIE MENDEZ 24 HR Interval Summary Free Text/Dictation doing ok, BP stable, plan for HD on friday Exam/Review of Systems Vital Signs Vitals Vital Signs Date Temp Pulse Resp B/P (MAP) Pulse Ox O2 O2 Flow FiO2 Time Delivery Rate 12/11/18 98.3 72 18 123/56 96 Room Air 11:25 (78) 12/11/18 21 08:07 12/11/18 2.0 07:42 Intake and Output 12/10/18 12/10/18 12/11/18 1515:00 23:00 07:00 IntakeIntake Total 600 ml 300 ml OutputOutput Total 1450 ml 150 ml 100 ml BalanceBalance -1450 ml 450 ml 200 ml Exam Constitutional: alert, well developed Respiratory: diminished breath sounds (at bases bilaterlly), + right chest permacath Cardiovascular: nl pulses, other (s1s2) Gastrointestinal: soft, non-tender Musculoskeletal: muscle weakness Extremities: normal pulses 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: nl speech, other (alert/responsive) Medications Medications Current Medications Albuterol/ Ipratropium (Duoneb) 3 ml Q6HWA RESP THERAPY HHN Last administered on 12/11/18 08:03; Admin Dose 3 ML; Start 11/26/18 at 08:00 Acetaminophen (Tylenol Tab) 500 mg Q6H PRN PO MILD PAIN(1-3)OR ELEVATED TEMP Last administered on 12/10/18 20:39; Admin Dose 500 MG; Start 11/25/18 at 22:30 Albumin Human 50 ml @ 100 mls/hr WITH DIALYSIS PRN IV SBP lower than 90 mm Hg Last administered on 12/10/18 10:46; Admin Dose 100 MLS/HR; Start 11/26/18 at 14:00 Sodium Chloride (NS) -To prime the dialy... DIRECTED FOR HD PRN IV SBP lower than 90 mm Hg ; Start 11/26/18 at 14:00 IV Flush (NS 10 ml) 10 ml PRN PRN IV IV PROTOCOL; Start 11/26/18 at 14:30 Hydralazine HCl (Apresoline) 20 mg Q6H PRN IV SBP > 160 Last administered on 11/29/18 12:33; Admin Dose 20 MG; Start 11/28/18 at 07:00 Albuterol/ Ipratropium (Duoneb) 3 ml Q4H RESP THERAPY PRN HHN SHORTNESS OF BREATH Last administered on 12/02/18 03:49; Admin Dose 3 ML; Start 11/29/18 at 01:00 Metoprolol Tartrate (Lopressor) 25 mg BID PO Last administered on 12/10/18 20:39; Admin Dose 25 MG; Start 11/30/18 at 21:00 Metoprolol Tartrate (Lopressor) 5 mg Q4H PRN IV HR>110 Hold SBP<100; Start 11/30/18 at 12:30 Haloperidol (Haldol) 2 mg Q6H PRN IV hallucinations Last administered on 12/02/18 03:21; Admin Dose 2 MG; Start 12/01/18 at 19:30 Nifedipine (Procardia Xl) 30 mg DAILY PO Last administered on 12/09/18 09:28; Admin Dose 30 MG; Start 12/07/18 at 09:00 Levothyroxine Sodium (Synthroid) 150 mcg DAILY@06 PO Last administered on 12/11/18 05:44; Admin Dose 150 MCG; Start 12/08/18 at 06:00 Heparin Sodium (Porcine) (Heparin (1000 Units/ml)) 3,700 unit AFTER DIALYSIS CATHETER Last administered on 12/10/18at 13:01; Admin Dose 3,700 UNIT; Start 12/08/18 at 16:00 Nystatin (Nystatin Susp) 5 ml QID PO Last administered on 12/11/18at 08:32; Admin Dose 5 ML; Start 12/09/18 at 13:00 Pantoprazole (Protonix Tab) 40 mg DAILY@0600 PO Last administered on 12/11/18 05:44; Admin Dose 40 MG; Start 12/10/18 at 06:00 Gabapentin (Neurontin) 300 mg QHS PO Last administered on 12/10/18at 20:38; Admin Dose 300 MG; Start 12/09/18 at 21:00 Fluconazole/ Sodium Chloride 50 ml @ 50 mls/hr Q24H IVPB Last administered on 12/10/18 16:56; Admin Dose 50 MLS/HR; Start 12/09/18 at 17:30 Miscellaneous Information (*Order Clarification Bulletin) MEDICATION REQUIRES CLARIFICATION: Q8H XX ; Start 12/10/18 at 11:00 Nystatin (Nystatin Powder) 1 applic BID TOP Last administered on 12/11/18at 08:36; Admin Dose 1 APPLIC; Start 12/10/18 at 21:00 GI HARTMAN MD Dec 11, 2018 12:29
--- NOTE | 2018-12-11 14:15 | CONS ---
Date/Time of Note Date/Time of Note DATE: 12/11/18 TIME: 14:10 Assessment/Plan Assessment/Plan Hospital Course IMPRESSION: 1. Shock, on dopamine pressor support at this time with previously preserved EF by most recent echo September 2018 of 60% to 65%.-improved off dopamine and tolerating BP medications 2. Abnormal echocardiogram, assess for acute coronary syndrome. 3. Congestive heart failure, diastolic, acute on chronic, in the setting of renal failure. 4. Renal failure now on HD 5. Anemia-requiring transfusions 6. Hyponatremia-improved 7. Urinary tract infection. 8. Tachycardia-c/w AF/AFL with RVR 9. Bradycardia- to 40's when converts to SR 10. Esophagitis-by endoscopy celeste REcc: -Tele -Continue abx's and f/u cx data -Continue CCB/BB as tolerated -Follow volume status clsoely -Follow for recurrent significant bradycardia -Continue steroids/bronchodilators -HD for volume removal s/p placement of guanako catheter -started on nystatin ? ability to resume anticoagulation/antiplatelet agents for AF/AFL Result Diagram: 12/10/18 0506 12/10/18 0506 Results 24hrs Laboratory Tests Test 12/11/18 07:14 Lab Scanned Report BLOOD TRANSFUSION Consultation Date/Type/Reason Admit Date/Time Nov 26, 2018 at 11:28 Initial Consult Date 11/26/18 Type of Consult cardiology Reason for Consultation CHF Requesting Provider: KATIE MENDEZ Exam/Review of Systems Vital Signs Vitals Vital Signs Date Temp Pulse Resp B/P (MAP) Pulse Ox O2 O2 Flow FiO2 Time Delivery Rate 12/11/18 74 12:00 12/11/18 98.3 18 123/56 96 Room Air 11:25 (78) 12/11/18 21 08:07 12/11/18 2.0 07:42 Intake and Output 12/10/18 12/10/18 12/11/18 1515:00 23:00 07:00 IntakeIntake Total 600 ml 300 ml OutputOutput Total 1450 ml 150 ml 100 ml BalanceBalance -1450 ml 450 ml 200 ml Exam Review of Systems: CONSTITUTIONAL: No fevers, chills. PULMONARY: No sob CARDIOVASCULAR: No chest pain/palpitations GASTROINTESTINAL: No nausea/vomiting. GENITOURINARY: No hematuria/dysuria. MUSCULOSKELETAL: No myagias/arthalgias. PSYCHIATRIC: The patient denies depression. NEUROLOGIC: No weakness Constitutional: alert Psych: no complaints Head: normocephalic ENMT: mucosa pink and moist Neck: supple, jvd Respiratory: clear to auscultation Cardiovascular: regular rate and rhythm Gastrointestinal: soft, non-tender Musculoskeletal: muscle weakness (normal) Extremities: edema (None) 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: other (No focal deficits) Medications Medications Current Medications Albuterol/ Ipratropium (Duoneb) 3 ml Q6HWA RESP THERAPY HHN Last administered on 12/11/18at 08:03; Admin Dose 3 ML; Start 11/26/18 at 08:00 Acetaminophen (Tylenol Tab) 500 mg Q6H PRN PO MILD PAIN(1-3)OR ELEVATED TEMP Last administered on 12/10/18 20:39; Admin Dose 500 MG; Start 11/25/18 at 22:30 Albumin Human 50 ml @ 100 mls/hr WITH DIALYSIS PRN IV SBP lower than 90 mm Hg Last administered on 12/10/18at 10:46; Admin Dose 100 MLS/HR; Start 11/26/18 at 14:00 Sodium Chloride (NS) -To prime the dialy... DIRECTED FOR HD PRN IV SBP lower than 90 mm Hg ; Start 11/26/18 at 14:00 IV Flush (NS 10 ml) 10 ml PRN PRN IV IV PROTOCOL; Start 11/26/18 at 14:30 Hydralazine HCl (Apresoline) 20 mg Q6H PRN IV SBP > 160 Last administered on 11/29/18at 12:33; Admin Dose 20 MG; Start 11/28/18 at 07:00 Albuterol/ Ipratropium (Duoneb) 3 ml Q4H RESP THERAPY PRN HHN SHORTNESS OF JAMIL TH Last administered on 12/02/18 03:49; Admin Dose 3 ML; Start 11/29/18 at 01:00 Metoprolol Tartrate (Lopressor) 25 mg BID PO Last administered on 12/10/18at 20:39; Admin Dose 25 MG; Start 11/30/18 at 21:00 Metoprolol Tartrate (Lopressor) 5 mg Q4H PRN IV HR>110 Hold SBP<100; Start 11/30/18 at 12:30 Haloperidol (Haldol) 2 mg Q6H PRN IV hallucinations Last administered on 12/02/18 03:21; Admin Dose 2 MG; Start 12/01/18 at 19:30 Nifedipine (Procardia Xl) 30 mg DAILY PO Last administered on 12/09/18 09:28; Admin Dose 30 MG; Start 12/07/18 at 09:00 Levothyroxine Sodium (Synthroid) 150 mcg DAILY@06 PO Last administered on 12/11/18 05:44; Admin Dose 150 MCG; Start 12/08/18 at 06:00 Heparin Sodium (Porcine) (Heparin (1000 Units/ml)) 3,700 unit AFTER DIALYSIS CATHETER Last administered on 12/10/18 13:01; Admin Dose 3,700 UNIT; Start 12/08/18 at 16:00 Nystatin (Nystatin Susp) 5 ml QID PO Last administered on 12/11/18 12:44; Admin Dose 5 ML; Start 12/09/18 at 13:00 Pantoprazole (Protonix Tab) 40 mg DAILY@0600 PO Last administered on 12/11/18 05:44; Admin Dose 40 MG; Start 12/10/18 at 06:00 Gabapentin (Neurontin) 300 mg QHS PO Last administered on 12/10/18 20:38; Admin Dose 300 MG; Start 12/09/18 at 21:00 Fluconazole/ Sodium Chloride 50 ml @ 50 mls/hr Q24H IVPB Last administered on 12/10/18 16:56; Admin Dose 50 MLS/HR; Start 12/09/18 at 17:30 Miscellaneous Information (*Order Clarification Bulletin) MEDICATION REQUIRES CLARIFICATION: Q8H XX ; Start 12/10/18 at 11:00 Nystatin (Nystatin Powder) 1 applic BID TOP Last administered on 12/11/18 08:36; Admin Dose 1 APPLIC; Start 12/10/18 at 21:00 ALVINA GARCIA Dec 11, 2018 14:15
--- NOTE | 2018-12-11 14:28 | PN ---
Date/Time of Note Date/Time of Note DATE: 12/11/18 TIME: 14:27 Assessment/Plan VTE Prophylaxis Risk score (from [facility] [place])>0 risk: 10 SCD applied (from [facility] [place]): Yes SCD contraindicated: other Pharmacological prophylaxis: other Pharm contraindication: other Lines/Catheters IV Catheter Type (from [facility]): permacath Central line still needed: Yes Urinary Cath still in place: Yes Reason Cath still needed: urinary retention Assessment/Plan Assessment/Plan -Anemia secondary to GI bleed. Protonix IV. Heparin is stopped. Transfuse as needed. -Status post EGD with notion of erosive gastritis and moderate duodenitis as well as hiatal hernia continue PPI. Status post colonoscopy with polypectomy and notion of moderate diverticulosis on 12/07/2018. Dr. Lewis is following in gastroenterology consultation. -Lissy esophagitis, continue nystatin swish and swallow. -Acute respiratory failure, resolved. Dr. Garcia is following in pulmonology consultation. -S/p sepsis secondary to UTI. Continue antibiotics per ID. Dr. Jordan is following in infection disease consultation. -S/p septic and cardiogenic shock -s/p Left lower lobe pneumonia -Acute on chronic systolic and diastolic congestive heart failure, improved with hemodialysis. Dr. Iraheta is following in cardiology consultation. -ARF on CKD. Patient started on hemodialysis during this admission. Continue hemodialysis per nephrology. Dr Hill is following in nephrology consultation. -Pulmonary edema -Hypothyroidism, continue Synthroid. -DNR status Further recommendations based on clinical course. Plan of care discussed with Dr. Olivier. Result Diagram: 12/10/18 0506 12/10/18 0506 Results 24hrs Laboratory Tests Test 12/11/18 07:14 Lab Scanned Report BLOOD TRANSFUSION Subjective 24 Hr Interval Summary Free Text/Dictation hd am Exam/Review of Systems Vital Signs Vitals Vital Signs Date Temp Pulse Resp B/P (MAP) Pulse Ox O2 O2 Flow FiO2 Time Delivery Rate 12/11/18 74 12:00 12/11/18 98.3 18 123/56 96 Room Air 11:25 (78) 12/11/18 21 08:07 12/11/18 2.0 07:42 Intake and Output 12/10/18 12/10/18 12/11/18 1515:00 23:00 07:00 IntakeIntake Total 600 ml 300 ml OutputOutput Total 1450 ml 150 ml 100 ml BalanceBalance -1450 ml 450 ml 200 ml Medications Medications Current Medications Albuterol/ Ipratropium (Duoneb) 3 ml Q6HWA RESP THERAPY HHN Last administered on 12/11/18 08:03; Admin Dose 3 ML; Start 11/26/18 at 08:00 Acetaminophen (Tylenol Tab) 500 mg Q6H PRN PO MILD PAIN(1-3)OR ELEVATED TEMP Last administered on 12/10/18 20:39; Admin Dose 500 MG; Start 11/25/18 at 22:30 Albumin Human 50 ml @ 100 mls/hr WITH DIALYSIS PRN IV SBP lower than 90 mm Hg Last administered on 12/10/18 10:46; Admin Dose 100 MLS/HR; Start 11/26/18 at 14:00 Sodium Chloride (NS) -To prime the dialy... DIRECTED FOR HD PRN IV SBP lower than 90 mm Hg ; Start 11/26/18 at 14:00 IV Flush (NS 10 ml) 10 ml PRN PRN IV IV PROTOCOL; Start 11/26/18 at 14:30 Hydralazine HCl (Apresoline) 20 mg Q6H PRN IV SBP > 160 Last administered on 11/29/18 12:33; Admin Dose 20 MG; Start 11/28/18 at 07:00 Albuterol/ Ipratropium (Duoneb) 3 ml Q4H RESP THERAPY PRN HHN SHORTNESS OF BREATH Last administered on 12/02/18 03:49; Admin Dose 3 ML; Start 11/29/18 at 01:00 Metoprolol Tartrate (Lopressor) 25 mg BID PO Last administered on 12/10/18 20:39; Admin Dose 25 MG; Start 11/30/18 at 21:00 Metoprolol Tartrate (Lopressor) 5 mg Q4H PRN IV HR>110 Hold SBP<100; Start 11/30/18 at 12:30 Haloperidol (Haldol) 2 mg Q6H PRN IV hallucinations Last administered on 12/02/18 03:21; Admin Dose 2 MG; Start 12/01/18 at 19:30 Nifedipine (Procardia Xl) 30 mg DAILY PO Last administered on 12/09/18 09:28; Admin Dose 30 MG; Start 12/07/18 at 09:00 Levothyroxine Sodium (Synthroid) 150 mcg DAILY@06 PO Last administered on 12/11/18 05:44; Admin Dose 150 MCG; Start 12/08/18 at 06:00 Heparin Sodium (Porcine) (Heparin (1000 Units/ml)) 3,700 unit AFTER DIALYSIS CATHETER Last administered on 12/10/18 13:01; Admin Dose 3,700 UNIT; Start 12/08/18 at 16:00 Nystatin (Nystatin Susp) 5 ml QID PO Last administered on 12/11/18 12:44; Admin Dose 5 ML; Start 12/09/18 at 13:00 Pantoprazole (Protonix Tab) 40 mg DAILY@0600 PO Last administered on 12/11/18 05:44; Admin Dose 40 MG; Start 12/10/18 at 06:00 Gabapentin (Neurontin) 300 mg QHS PO Last administered on 12/10/18 20:38; Admin Dose 300 MG; Start 12/09/18 at 21:00 Fluconazole/ Sodium Chloride 50 ml @ 50 mls/hr Q24H IVPB Last administered on 12/10/18 16:56; Admin Dose 50 MLS/HR; Start 12/09/18 at 17:30 Miscellaneous Information (*Order Clarification Bulletin) MEDICATION REQUIRES CLARIFICATION: Q8H XX ; Start 12/10/18 at 11:00 Nystatin (Nystatin Powder) 1 applic BID TOP Last administered on 12/11/18at 08:36; Admin Dose 1 APPLIC; Start 12/10/18 at 21:00 KATIE MENDEZ Dec 11, 2018 14:28
--- NOTE | 2018-12-11 15:11 | CONS ---
Date/Time of Note Date/Time of Note DATE: 12/11/18 TIME: 15:11 Assessment/Plan Assessment/Plan Hospital Course - s/p leukocytosis on 12/05/2018 may reflect receipt of pRBC x2 units - s/p leukocytosis likely due to steroid margination 11/25/2018-12/01/2018 - s/p severe sepsis with septic shock due to UTI +/- bacteremia; s/p Dopamine - s/p UTI due to klebsiella and proteus - treated with ceftriaxone (11/25/2018- 11/29/2018) - s/p bacteremia 1/2 sets from 11/25/2018 due to coag negative Staph, likely contaminant - s/p SIRS due to acute hypoxic resp failure and acute on chronic renal failure - acute hypoxic resp failure, probably due to CHF exacerbation +/- aspiration pneumonia/pneumonitis, off bipap - acute on chronic diastolic CHF, improved after HD - s/p tachycardia c/w AF/AFL with RVR - now in sinus - s/p bradycardia to 40's, now SR - acute on chronic renal failure, started on HD on 11/26/2018 - s/p R IJ permacath placement 12/08/2018 - acute on chronic anemia requiring PRBC - s/p upper GIB - gastritis, duodenitis, esophagitis and moderate size hiatal hernia per EGD with biopsy on 12/07/2018; Path +fungal yeast in esophagus - esophageal candidiasis - on Fluconazole and po nystatin - external hemorrhoids, mild to moderate diverticulosis per Colonoscopy and polypectomy 12/07/2018; Path negative for dysplasia or malignancy - intertrigo in groin area - underlying COPD - CAD - hypothyroidism - TSH elevated and FT4 depressed - gout - eschar of L 4th toe, probably ischemic eschar/ischemia - acute encephalopathy due to sepsis, improving Recommendations: - Continue IV fluconazole (12/09/2018-) for esophageal candidiasis. Pt is also on po nystatin. Ok to transition to po if tolerable - Pt completed cefepime (11/30/2018-12/02/2018) and ceftriaxone (11/25/2018-11/29/2018) - Start nystatin powder (12/10/2018-) for intertrigo Result Diagram: 12/10/18 0506 12/10/18 0506 Results 24hrs Laboratory Tests Test 12/11/18 07:14 Lab Scanned Report BLOOD TRANSFUSION Consultation Date/Type/Reason Admit Date/Time Nov 26, 2018 at 11:28 Initial Consult Date 11/27/18 Requesting Provider: KATIE MENDEZ Exam/Review of Systems Vital Signs Vitals Vital Signs Date Temp Pulse Resp B/P (MAP) Pulse Ox O2 O2 Flow FiO2 Time Delivery Rate 12/11/18 74 12:00 12/11/18 98.3 18 123/56 96 Room Air 11:25 (78) 12/11/18 21 08:07 12/11/18 2.0 07:42 Intake and Output 12/10/18 12/10/18 12/11/18 1515:00 23:00 07:00 IntakeIntake Total 600 ml 300 ml OutputOutput Total 1450 ml 150 ml 100 ml BalanceBalance -1450 ml 450 ml 200 ml Exam sleeping peacefully Medications Medications Current Medications Albuterol/ Ipratropium (Duoneb) 3 ml Q6HWA RESP THERAPY HHN Last administered on 12/11/18at 08:03; Admin Dose 3 ML; Start 11/26/18 at 08:00 Acetaminophen (Tylenol Tab) 500 mg Q6H PRN PO MILD PAIN(1-3)OR ELEVATED TEMP Last administered on 12/10/18at 20:39; Admin Dose 500 MG; Start 11/25/18 at 22:30 Albumin Human 50 ml @ 100 mls/hr WITH DIALYSIS PRN IV SBP lower than 90 mm Hg Last administered on 12/10/18at 10:46; Admin Dose 100 MLS/HR; Start 11/26/18 at 14:00 Sodium Chloride (NS) -To prime the dialy... DIRECTED FOR HD PRN IV SBP lower than 90 mm Hg ; Start 11/26/18 at 14:00 IV Flush (NS 10 ml) 10 ml PRN PRN IV IV PROTOCOL; Start 11/26/18 at 14:30 Hydralazine HCl (Apresoline) 20 mg Q6H PRN IV SBP > 160 Last administered on 11/29/18at 12:33; Admin Dose 20 MG; Start 11/28/18 at 07:00 Albuterol/ Ipratropium (Duoneb) 3 ml Q4H RESP THERAPY PRN HHN SHORTNESS OF BREATH Last administered on 12/02/18at 03:49; Admin Dose 3 ML; Start 11/29/18 at 01:00 Metoprolol Tartrate (Lopressor) 25 mg BID PO Last administered on 12/10/18 20:39; Admin Dose 25 MG; Start 11/30/18 at 21:00 Metoprolol Tartrate (Lopressor) 5 mg Q4H PRN IV HR>110 Hold SBP<100; Start 11/30/18 at 12:30 Haloperidol (Haldol) 2 mg Q6H PRN IV hallucinations Last administered on 12/02/18 03:21; Admin Dose 2 MG; Start 12/01/18 at 19:30 Nifedipine (Procardia Xl) 30 mg DAILY PO Last administered on 12/09/18 09:28; Admin Dose 30 MG; Start 12/07/18 at 09:00 Levothyroxine Sodium (Synthroid) 150 mcg DAILY@06 PO Last administered on 12/11/18 05:44; Admin Dose 150 MCG; Start 12/08/18 at 06:00 Heparin Sodium (Porcine) (Heparin (1000 Units/ml)) 3,700 unit AFTER DIALYSIS CATHETER Last administered on 12/10/18 13:01; Admin Dose 3,700 UNIT; Start 12/08/18 at 16:00 Nystatin (Nystatin Susp) 5 ml QID PO Last administered on 12/11/18 12:44; Admin Dose 5 ML; Start 12/09/18 at 13:00 Pantoprazole (Protonix Tab) 40 mg DAILY@0600 PO Last administered on 12/11/18 05:44; Admin Dose 40 MG; Start 12/10/18 at 06:00 Gabapentin (Neurontin) 300 mg QHS PO Last administered on 12/10/18 20:38; Admin Dose 300 MG; Start 12/09/18 at 21:00 Fluconazole/ Sodium Chloride 50 ml @ 50 mls/hr Q24H IVPB Last administered on 12/10/18 16:56; Admin Dose 50 MLS/HR; Start 12/09/18 at 17:30 Miscellaneous Information (*Order Clarification Bulletin) MEDICATION REQUIRES CLARIFICATION: Q8H XX ; Start 12/10/18 at 11:00 Nystatin (Nystatin Powder) 1 applic BID TOP Last administered on 12/11/18at 08:36; Admin Dose 1 APPLIC; Start 12/10/18 at 21:00 ZAIRE CORDOVA MD Dec 11, 2018 15:11
[2018-12-11] MEDS: FLUCONAZOLE 100 MG/50 ML (PMX) 50 ML IVPB SCH (16:56)
[2018-12-11] MEDS: GABAPENTIN 300 MG CAP PO SCH (21:19)
[2018-12-11] MEDS: PROMETHAZINE/CODEINE 5ML CUP PO PRN (22:44)
[2018-12-12] VITALS (25 sets, daily range): BP systolic 96–138; BP diastolic 50–67; PULSE 70–87; RESP 18–20
[2018-12-12] MEDS: PANTOPRAZOLE (EC) 40 MG TAB PO SCH (06:00)
[2018-12-12] MEDS: LEVOTHYROXINE 150 MCG TAB PO SCH (06:00)
[2018-12-12] MEDS: ALBUTEROL/IPRATROPIUM (NEB) 3 ML AMP HHN SCH ×3 (07:47→20:20)
[2018-12-12] MEDS: METOPROLOL 25 MG TAB PO SCH ×2 (08:30→21:00)
[2018-12-12] MEDS: NYSTATIN SUSP 5 ML CUP PO SCH ×3 (08:30→17:47)
[2018-12-12] MEDS: NIFEdipine (XL) 30 MG TAB PO SCH (08:31)
[2018-12-12] MEDS: FLUCONAZOLE 100 MG TAB PO SCH (08:31)
[2018-12-12] MEDS: NYSTATIN 30 GM POWDER BTL TOP SCH (08:32)
[2018-12-12] MEDS: PROMETHAZINE/CODEINE 5ML CUP PO PRN (08:34)
--- NOTE | 2018-12-12 16:48 | CONS ---
Date/Time of Note Date/Time of Note DATE: 12/12/18 TIME: 16:48 Assessment/Plan Assessment/Plan Assessment/Plan -Anemia secondary to GI bleed. Protonix IV. Heparin is stopped. Transfuse as needed. -Status post EGD with notion of erosive gastritis and moderate duodenitis as well as hiatal hernia continue PPI. Status post colonoscopy with polypectomy and notion of moderate diverticulosis on 12/07/2018. Dr. Lewis is following in gastroenterology consultation. -Lissy esophagitis, continue nystatin swish and swallow. -Acute respiratory failure, resolved. Dr. Garcia is following in pulmonology consultation. -S/p sepsis secondary to UTI. Continue antibiotics per ID. Dr. Jordan is following in infection disease consultation. -S/p septic and cardiogenic shock -s/p Left lower lobe pneumonia -Acute on chronic systolic and diastolic congestive heart failure, improved with hemodialysis. Dr. Iraheta is following in cardiology consultation. -ARF on CKD. Patient started on hemodialysis during this admission. Continue hemodialysis per nephrology. Dr Hill is following in nephrology consultation. -Pulmonary edema -Hypothyroidism, continue Synthroid. -DNR status Further recommendations based on clinical course. Plan of care discussed with Dr. Olivier. Result Diagram: 12/10/18 0506 12/10/18 0506 Consultation Date/Type/Reason Admit Date/Time Nov 26, 2018 at 11:28 Initial Consult Date 11/27/18 Requesting Provider: KATIE MENDEZ Exam/Review of Systems Vital Signs Vitals Vital Signs Date Temp Pulse Resp B/P (MAP) Pulse Ox O2 O2 Flow FiO2 Time Delivery Rate 12/12/18 98.4 81 19 126/67 98 15:30 (86) 12/12/18 21 14:07 12/12/18 Nasal 2.0 08:01 Cannula Intake and Output 12/11/18 12/11/18 12/12/18 1515:00 23:00 07:00 IntakeIntake Total 620 ml 420 ml OutputOutput Total 100 ml 180 ml BalanceBalance 520 ml 240 ml Medications Medications Current Medications Albuterol/ Ipratropium (Duoneb) 3 ml Q6HWA RESP THERAPY HHN Last administered on 12/12/18at 14:05; Admin Dose 3 ML; Start 11/26/18 at 08:00 Acetaminophen (Tylenol Tab) 500 mg Q6H PRN PO MILD PAIN(1-3)OR ELEVATED TEMP Last administered on 12/10/18 20:39; Admin Dose 500 MG; Start 11/25/18 at 22:30 Albumin Human 50 ml @ 100 mls/hr WITH DIALYSIS PRN IV SBP lower than 90 mm Hg Last administered on 12/10/18at 10:46; Admin Dose 100 MLS/HR; Start 11/26/18 at 14:00 Sodium Chloride (NS) -To prime the dialy... DIRECTED FOR HD PRN IV SBP lower than 90 mm Hg ; Start 11/26/18 at 14:00 IV Flush (NS 10 ml) 10 ml PRN PRN IV IV PROTOCOL; Start 11/26/18 at 14:30 Hydralazine HCl (Apresoline) 20 mg Q6H PRN IV SBP > 160 Last administered on 11/29/18at 12:33; Admin Dose 20 MG; Start 11/28/18 at 07:00 Albuterol/ Ipratropium (Duoneb) 3 ml Q4H RESP THERAPY PRN HHN SHORTNESS OF BREATH Last administered on 12/02/18 03:49; Admin Dose 3 ML; Start 11/29/18 at 01:00 Metoprolol Tartrate (Lopressor) 25 mg BID PO Last administered on 12/12/18 08:30; Admin Dose 25 MG; Start 11/30/18 at 21:00 Metoprolol Tartrate (Lopressor) 5 mg Q4H PRN IV HR>110 Hold SBP<100; Start 11/30/18 at 12:30 Haloperidol (Haldol) 2 mg Q6H PRN IV hallucinations Last administered on 12/02/18 03:21; Admin Dose 2 MG; Start 12/01/18 at 19:30 Nifedipine (Procardia Xl) 30 mg DAILY PO Last administered on 12/12/18 08:31; Admin Dose 30 MG; Start 12/07/18 at 09:00 Levothyroxine Sodium (Synthroid) 150 mcg DAILY@06 PO Last administered on 06:00; Admin Dose 150 MCG; Start 12/08/18 at 06:00 Heparin Sodium (Porcine) (Heparin (1000 Units/ml)) 3,700 unit AFTER DIALYSIS CATHETER Last administered on 12/10/18 13:01; Admin Dose 3,700 UNIT; Start 12/08/18 at 16:00 Nystatin (Nystatin Susp) 5 ml QID PO Last administered on 12/12/18 08:30; Admin Dose 5 ML; Start 12/09/18 at 13:00 Pantoprazole (Protonix Tab) 40 mg DAILY@0600 PO Last administered on 12/12/18 06:00; Admin Dose 40 MG; Start 12/10/18 at 06:00 Gabapentin (Neurontin) 300 mg QHS PO Last administered on 12/11/18 21:19; Admin Dose 300 MG; Start 12/09/18 at 21:00 Miscellaneous Information (*Order Clarification Bulletin) MEDICATION REQUIRES CLARIFICATION: Q8H XX ; Start 12/10/18 at 11:00 Nystatin (Nystatin Powder) 1 applic BID TOP Last administered on 12/12/18 08:32; Admin Dose 1 APPLIC; Start 12/10/18 at 21:00 Fluconazole (Diflucan) 100 mg DAILY PO Last administered on 12/12/18 08:31; Admin Dose 100 MG; Start 12/12/18 at 09:00 Promethazine HCl/ Codeine (Phenergan/ Codeine) 10 ml Q6 PRN PO COUGH Last administered on 12/12/18 08:34; Admin Dose 10 ML; Start 12/11/18 at 20:30 KATIE MENDEZ Dec 12, 2018 16:48
--- NOTE | 2018-12-12 21:50 | CONS ---
Date/Time of Note Date/Time of Note DATE: 12/12/18 TIME: 21:44 Assessment/Plan Assessment/Plan Assessment/Plan 1. Oliguric Acute kindey injury on CKD III due to ATN from septic shock, 2. Acute uremic encephalopathy 3. Acute hyperkalemia- resolved 4. Severe metabolic acidosis 5. Septic shock on pressors 2/2 UTI and bacteremia 6. acute hypoxemic respiraotry failure on BIPAP 7. acute on chronic,systolic and diastolic heart failure 8. H/o HTN 9. H/o COPD 10. Acute GI bleeding s/p 3 U PRBC , s/p EGD and Colonoscopy Plan: started on HD on 11/26/17- s/p Right chest permacath on 12/08/18- Plan for HD on Friday then, will keep pt on Fri, , Friday schedule Outpatient HD placement has been confirmed at [facility] [place] [facility] - Fri, friday at 4 pm IV abx as per PMD, renally dose all abx and monitor electrolytes will follow up Result Diagram: 12/10/18 0506 12/10/18 0506 Consultation Date/Type/Reason Admit Date/Time Nov 26, 2018 at 11:28 Initial Consult Date 11/26/18 Type of Consult NEPHROLOGY Requesting Provider: KATIE MENDEZ 24 HR Interval Summary Free Text/Dictation Still HD not done yet, BP stable, afebrile Exam/Review of Systems Vital Signs Vitals Vital Signs Date Temp Pulse Resp B/P (MAP) Pulse Ox O2 O2 Flow FiO2 Time Delivery Rate 12/12/18 96 21 20:20 12/12/18 72 20 20:20 12/12/18 98.3 130/60 Room Air 19:30 (83) 12/12/18 2.0 08:01 Intake and Output 12/11/18 12/11/18 12/12/18 1515:00 23:00 07:00 IntakeIntake Total 620 ml 420 ml OutputOutput Total 100 ml 180 ml BalanceBalance 520 ml 240 ml Exam Constitutional: alert, well developed Respiratory: diminished breath sounds (at bases bilaterlly), + right chest permacath Cardiovascular: nl pulses, other (s1s2) Gastrointestinal: soft, non-tender Musculoskeletal: muscle weakness Extremities: normal pulses 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: nl speech, other (alert/responsive) Medications Medications Current Medications Albuterol/ Ipratropium (Duoneb) 3 ml Q6HWA RESP THERAPY HHN Last administered on 12/12/18at 20:20; Admin Dose 3 ML; Start 11/26/18 at 08:00 Acetaminophen (Tylenol Tab) 500 mg Q6H PRN PO MILD PAIN(1-3)OR ELEVATED TEMP Last administered on 12/10/18at 20:39; Admin Dose 500 MG; Start 11/25/18 at 22:30 Albumin Human 50 ml @ 100 mls/hr WITH DIALYSIS PRN IV SBP lower than 90 mm Hg Last administered on 12/10/18at 10:46; Admin Dose 100 MLS/HR; Start 11/26/18 at 14:00 Sodium Chloride (NS) -To prime the dialy... DIRECTED FOR HD PRN IV SBP lower than 90 mm Hg ; Start 11/26/18 at 14:00 IV Flush (NS 10 ml) 10 ml PRN PRN IV IV PROTOCOL; Start 11/26/18 at 14:30 Hydralazine HCl (Apresoline) 20 mg Q6H PRN IV SBP > 160 Last administered on 11/29/18at 12:33; Admin Dose 20 MG; Start 11/28/18 at 07:00 Albuterol/ Ipratropium (Duoneb) 3 ml Q4H RESP THERAPY PRN HHN SHORTNESS OF BREATH Last administered on 12/02/18at 03:49; Admin Dose 3 ML; Start 11/29/18 at 01:00 Metoprolol Tartrate (Lopressor) 25 mg BID PO Last administered on 12/12/18at 08:30; Admin Dose 25 MG; Start 11/30/18 at 21:00 Metoprolol Tartrate (Lopressor) 5 mg Q4H PRN IV HR>110 Hold SBP<100; Start 11/30/18 at 12:30 Haloperidol (Haldol) 2 mg Q6H PRN IV hallucinations Last administered on 12/02/18 03:21; Admin Dose 2 MG; Start 12/01/18 at 19:30 Nifedipine (Procardia Xl) 30 mg DAILY PO Last administered on 12/12/18 08:31; Admin Dose 30 MG; Start 12/07/18 at 09:00 Levothyroxine Sodium (Synthroid) 150 mcg DAILY@06 PO Last administered on 12/12/18 06:00; Admin Dose 150 MCG; Start 12/08/18 at 06:00 Heparin Sodium (Porcine) (Heparin (1000 Units/ml)) 3,700 unit AFTER DIALYSIS CATHETER Last administered on 12/10/18 13:01; Admin Dose 3,700 UNIT; Start 12/08/18 at 16:00 Nystatin (Nystatin Susp) 5 ml QID PO Last administered on 12/12/18 17:47; Admin Dose 5 ML; Start 12/09/18 at 13:00 Pantoprazole (Protonix Tab) 40 mg DAILY@0600 PO Last administered on 12/12/18 06:00; Admin Dose 40 MG; Start 12/10/18 at 06:00 Gabapentin (Neurontin) 300 mg QHS PO Last administered on 12/11/18 21:19; Admin Dose 300 MG; Start 12/09/18 at 21:00 Miscellaneous Information (*Order Clarification Bulletin) MEDICATION REQUIRES CLARIFICATION: Q8H XX ; Start 12/10/18 at 11:00 Nystatin (Nystatin Powder) 1 applic BID TOP Last administered on 12/12/18 08:32; Admin Dose 1 APPLIC; Start 12/10/18 at 21:00 Fluconazole (Diflucan) 100 mg DAILY PO Last administered on 12/12/18 08:31; Admin Dose 100 MG; Start 12/12/18 at 09:00 Promethazine HCl/ Codeine (Phenergan/ Codeine) 10 ml Q6 PRN PO COUGH Last administered on 12/12/18 08:34; Admin Dose 10 ML; Start 12/11/18 at 20:30 GI HARTMAN MD Dec 12, 2018 21:50
[2018-12-12] MEDS: ALBUMIN HUMAN 25% 50 ML IV PRN (22:30)
--- NOTE | 2018-12-12 23:07 | CONS ---
Date/Time of Note Date/Time of Note DATE: 12/12/18 TIME: 23:02 Assessment/Plan Assessment/Plan Hospital Course - s/p leukocytosis on 12/05/2018 may reflect receipt of pRBC x2 units - s/p leukocytosis likely due to steroid margination 11/25/2018-12/01/2018 - s/p severe sepsis with septic shock due to UTI +/- bacteremia; s/p Dopamine - s/p UTI due to klebsiella and proteus - treated with ceftriaxone (11/25/2018- 11/29/2018) - s/p bacteremia 1/2 sets from 11/25/2018 due to coag negative Staph, likely contaminant - s/p SIRS due to acute hypoxic resp failure and acute on chronic renal failure - acute hypoxic resp failure, probably due to CHF exacerbation +/- aspiration pneumonia/pneumonitis, off bipap - acute on chronic diastolic CHF, improved after HD - s/p tachycardia c/w AF/AFL with RVR - now in sinus - s/p bradycardia to 40's, now SR - acute on chronic renal failure, started on HD on 11/26/2018 - s/p R IJ permacath placement 12/08/2018 - acute on chronic anemia requiring PRBC - s/p upper GIB - gastritis, duodenitis, esophagitis and moderate size hiatal hernia per EGD with biopsy on 12/07/2018; Path +fungal yeast in esophagus - esophageal candidiasis - on Fluconazole and po nystatin - external hemorrhoids, mild to moderate diverticulosis per Colonoscopy and polypectomy 12/07/2018; Path negative for dysplasia or malignancy - intertrigo in groin area - underlying COPD - CAD - hypothyroidism - TSH elevated and FT4 depressed - gout - eschar of L 4th toe, probably ischemic eschar/ischemia - acute encephalopathy due to sepsis, improving - note: Pt completed cefepime (11/30/2018-12/02/2018) and ceftriaxone (11/25/2018-11/29/2018) Recommendations: - Continue fluconazole (12/09/2018-, switched to PO on 12/12/2018) and PO nystatin for oral candidiasis - continue nystatin powder (12/10/2018-) for intertrigo of b/l groin management d/w Pt, her RN Yane and HD nurse Result Diagram: 12/10/18 0506 12/10/18 0506 Consultation Date/Type/Reason Admit Date/Time Nov 26, 2018 at 11:28 Initial Consult Date 11/27/18 Type of Consult ID Requesting Provider: KATIE MENDEZ 24 HR Interval Summary Free Text/Dictation lethargic and limited Constitutional: improved Detailed Summary Respiratory: No cough, No shortness of breath Cardiovascular: no complaints Gastrointestinal: no complaints Musculoskeletal: other (experiencing restless leg syndrome) Neurologic: No headache Exam/Review of Systems Vital Signs Vitals Vital Signs Date Temp Pulse Resp B/P (MAP) Pulse Ox O2 O2 Flow FiO2 Time Delivery Rate 12/12/18 75 22:00 12/12/18 18 121/63 97 Room Air 20:45 (82) 12/12/18 21 20:20 12/12/18 98.3 19:30 12/12/18 2.0 08:01 Intake and Output 12/11/18 12/11/18 12/12/18 1515:00 23:00 07:00 IntakeIntake Total 620 ml 420 ml OutputOutput Total 100 ml 180 ml BalanceBalance 520 ml 240 ml Exam Constitutional: frail Psych: nl mood/affect Head: normocephalic, atraumatic Eyes: nl conjunctiva, nl lids ENMT: nl external ears & nose, nl nasal mucosa & septum, other (wearing a mask) Neck: other (not swollen) Respiratory: diminished breath sounds Cardiovascular: regular rate and rhythm, nl pulses Gastrointestinal: soft, non-tender; No tender Extremities: No edema 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: other (moving her b/l LEs (restless leg syndrome)) Skin: rash or lesions (intertrigo of b/l groin) Medications Medications Current Medications Albuterol/ Ipratropium (Duoneb) 3 ml Q6HWA RESP THERAPY HHN Last administered on 12/12/18at 20:20; Admin Dose 3 ML; Start 11/26/18 at 08:00 Acetaminophen (Tylenol Tab) 500 mg Q6H PRN PO MILD PAIN(1-3)OR ELEVATED TEMP Last administered on 12/10/18at 20:39; Admin Dose 500 MG; Start 11/25/18 at 22:30 Albumin Human 50 ml @ 100 mls/hr WITH DIALYSIS PRN IV SBP lower than 90 mm Hg Last administered on 12/12/18at 22:30; Admin Dose 100 MLS/HR; Start 11/26/18 at 14:00 Sodium Chloride (NS) -To prime the dialy... DIRECTED FOR HD PRN IV SBP lower than 90 mm Hg ; Start 11/26/18 at 14:00 IV Flush (NS 10 ml) 10 ml PRN PRN IV IV PROTOCOL; Start 11/26/18 at 14:30 Hydralazine HCl (Apresoline) 20 mg Q6H PRN IV SBP > 160 Last administered on 11/29/18at 12:33; Admin Dose 20 MG; Start 11/28/18 at 07:00 Albuterol/ Ipratropium (Duoneb) 3 ml Q4H RESP THERAPY PRN HHN SHORTNESS OF BREATH Last administered on 12/02/18at 03:49; Admin Dose 3 ML; Start 11/29/18 at 01:00 Metoprolol Tartrate (Lopressor) 25 mg BID PO Last administered on 12/12/18at 08:30; Admin Dose 25 MG; Start 11/30/18 at 21:00 Metoprolol Tartrate (Lopressor) 5 mg Q4H PRN IV HR>110 Hold SBP<100; Start 11/30/18 at 12:30 Haloperidol (Haldol) 2 mg Q6H PRN IV hallucinations Last administered on 12/02/18at 03:21; Admin Dose 2 MG; Start 12/01/18 at 19:30 Nifedipine (Procardia Xl) 30 mg DAILY PO Last administered on 12/12/18at 08:31; Admin Dose 30 MG; Start 12/07/18 at 09:00 Levothyroxine Sodium (Synthroid) 150 mcg DAILY@06 PO Last administered on 12/12/18at 06:00; Admin Dose 150 MCG; Start 12/08/18 at 06:00 Heparin Sodium (Porcine) (Heparin (1000 Units/ml)) 3,700 unit AFTER DIALYSIS CATHETER Last administered on 12/10/18at 13:01; Admin Dose 3,700 UNIT; Start 12/08/18 at 16:00 Nystatin (Nystatin Susp) 5 ml QID PO Last administered on 12/12/18at 17:47; Admin Dose 5 ML; Start 12/09/18 at 13:00 Pantoprazole (Protonix Tab) 40 mg DAILY@0600 PO Last administered on 12/12/18at 06:00; Admin Dose 40 MG; Start 12/10/18 at 06:00 Gabapentin (Neurontin) 300 mg QHS PO Last administered on 12/11/18at 21:19; Admin Dose 300 MG; Start 12/09/18 at 21:00 Miscellaneous Information (*Order Clarification Bulletin) MEDICATION REQUIRES CLARIFICATION: Q8H XX ; Start 12/10/18 at 11:00 Nystatin (Nystatin Powder) 1 applic BID TOP Last administered on 12/12/18at 08:32; Admin Dose 1 APPLIC; Start 12/10/18 at 21:00 Fluconazole (Diflucan) 100 mg DAILY PO Last administered on 12/12/18at 08:31; Admin Dose 100 MG; Start 12/12/18 at 09:00 Promethazine HCl/ Codeine (Phenergan/ Codeine) 10 ml Q6 PRN PO COUGH Last administered on 12/12/18at 08:34; Admin Dose 10 ML; Start 12/11/18 at 20:30 RICHARD MOBLEY M.D. Dec 12, 2018 23:07
[2018-12-12] MEDS: HEPARIN 1000 UNITS/ML 10 ML INJ CATHETER SCH (23:58)
[2018-12-13] VITALS (11 sets, daily range): BP systolic 114–144; BP diastolic 53–67; PULSE 75–92; RESP 18–20
[2018-12-13] MEDS: NYSTATIN SUSP 5 ML CUP PO SCH ×5 (00:21→20:54)
[2018-12-13] MEDS: GABAPENTIN 300 MG CAP PO SCH ×2 (00:23→20:54)
[2018-12-13] MEDS: NYSTATIN 30 GM POWDER BTL TOP SCH ×3 (00:24→20:55)
[2018-12-13] MEDS ORDERED: DIPHENHYDRAMINE 25 MG CAP PO PRN (02:22)
[2018-12-13] MEDS: LEVOTHYROXINE 150 MCG TAB PO SCH (05:27)
[2018-12-13] MEDS: PANTOPRAZOLE (EC) 40 MG TAB PO SCH (05:28)
[2018-12-13] MEDS: NIFEdipine (XL) 30 MG TAB PO SCH (08:03)
[2018-12-13] MEDS: FLUCONAZOLE 100 MG TAB PO SCH (08:03)
[2018-12-13] MEDS: METOPROLOL 25 MG TAB PO SCH ×2 (08:04→20:55)
[2018-12-13] MEDS: ALBUTEROL/IPRATROPIUM (NEB) 3 ML AMP HHN SCH ×3 (08:13→19:34)
--- NOTE | 2018-12-13 10:13 | CONS ---
Date/Time of Note Date/Time of Note DATE: 12/13/18 TIME: 10:11 Assessment/Plan Assessment/Plan Assessment/Plan 1. Shock, on dopamine pressor support at this time with previously preserved EF by most recent echo September 2018 of 60% to 65%.-improved off dopamine and tolerating BP medications - much better now - BP stable. 2. Abnormal echocardiogram, assess for acute coronary syndrome- r/o MO, no intervention planned. 3. Congestive heart failure, diastolic, acute on chronic, in the setting of renal failure. Remove fluid with HD. 4. Renal failure - HD per renal team. 5. Anemia-requiring transfusions 6. Hyponatremia-improved 7. Urinary tract infection - on anti-Bx, treated. 8. Tachycardia-c/w AF/AFL with RVR 9. Bradycardia- to 40's when converts to SR 10. Esophagitis-by endoscopy celeste Result Diagram: 12/10/18 0506 12/10/18 0506 Consultation Date/Type/Reason Admit Date/Time Nov 26, 2018 at 11:28 Initial Consult Date 11/27/18 Requesting Provider: KATIE MENDEZ 24 HR Interval Summary Free Text/Dictation NO acute events - BP better - HR well maintained - HD as needed for diuresis ROS: No fever, no chills, no nausea, no vomiting, no diarrhea/constipation No recent weight changes No chest pain, no PND, no orthopnea - mild SOB, no wheezing No dizziness, blurred vision No thirst, no heat or cold intolerance Exam/Review of Systems Vital Signs Vitals Vital Signs Date Temp Pulse Resp B/P (MAP) Pulse Ox O2 O2 Flow FiO2 Time Delivery Rate 12/13/18 76 08:47 12/13/18 20 99 21 08:14 12/13/18 97.6 117/58 07:21 (77) 12/13/18 Room Air 04:07 12/12/18 23:30 Intake and Output 12/12/18 12/12/18 12/13/18 1515:00 23:00 07:00 IntakeIntake Total 150 ml 400 ml 300 ml OutputOutput Total 100 ml 450 ml 350 ml BalanceBalance 50 ml -50 ml -50 ml Exam General: WN/WD/NAD, AOx 2-3 more alert HEENT: Unicetric/atraumatic/EOMI ( follows commands) NECK: JVD elevated, no thyromegaly Lymph: no lymphadenopathy HEART: regular with no S3, II/ systolic murmur at apex, PMI L LUNGS: Coarse sounds ABD: soft, NT, ND, +BS : Intact Neuro: non focal SKIN: chronic changes EXT: trace edema Medications Medications Current Medications Albuterol/ Ipratropium (Duoneb) 3 ml Q6HWA RESP THERAPY HHN Last administered on 12/13/18 08:13; Admin Dose 3 ML; Start 11/26/18 at 08:00 Acetaminophen (Tylenol Tab) 500 mg Q6H PRN PO MILD PAIN(1-3)OR ELEVATED TEMP Last administered on 12/10/18at 20:39; Admin Dose 500 MG; Start 11/25/18 at 22:30 Albumin Human 50 ml @ 100 mls/hr WITH DIALYSIS PRN IV SBP lower than 90 mm Hg Last administered on 12/12/18 22:30; Admin Dose 100 MLS/HR; Start 11/26/18 at 14:00 Sodium Chloride (NS) -To prime the dialy... DIRECTED FOR HD PRN IV SBP lower than 90 mm Hg ; Start 11/26/18 at 14:00 IV Flush (NS 10 ml) 10 ml PRN PRN IV IV PROTOCOL; Start 11/26/18 at 14:30 Hydralazine HCl (Apresoline) 20 mg Q6H PRN IV SBP > 160 Last administered on 11/29/18at 12:33; Admin Dose 20 MG; Start 11/28/18 at 07:00 Albuterol/ Ipratropium (Duoneb) 3 ml Q4H RESP THERAPY PRN HHN SHORTNESS OF BREATH Last administered on 12/02/18at 03:49; Admin Dose 3 ML; Start 11/29/18 at 01:00 Metoprolol Tartrate (Lopressor) 25 mg BID PO Last administered on 12/12/18 08: 30; Admin Dose 25 MG; Start 11/30/18 at 21:00 Metoprolol Tartrate (Lopressor) 5 mg Q4H PRN IV HR>110 Hold SBP<100; Start 11/30/18 at 12:30 Haloperidol (Haldol) 2 mg Q6H PRN IV hallucinations Last administered on 12/02/18 03:21; Admin Dose 2 MG; Start 12/01/18 at 19:30 Nifedipine (Procardia Xl) 30 mg DAILY PO Last administered on 12/12/18 08:31; Admin Dose 30 MG; Start 12/07/18 at 09:00 Levothyroxine Sodium (Synthroid) 150 mcg DAILY@06 PO Last administered on 12/13/18 05:27; Admin Dose 150 MCG; Start 12/08/18 at 06:00 Heparin Sodium (Porcine) (Heparin (1000 Units/ml)) 3,700 unit AFTER DIALYSIS CATHETER Last administered on 12/12/18 23:58; Admin Dose 3,700 UNIT; Start 12/08/18 at 16:00 Nystatin (Nystatin Susp) 5 ml QID PO Last administered on 12/13/18 08:03; Admin Dose 5 ML; Start 12/09/18 at 13:00 Pantoprazole (Protonix Tab) 40 mg DAILY@0600 PO Last administered on 12/13/18 05:28; Admin Dose 40 MG; Start 12/10/18 at 06:00 Gabapentin (Neurontin) 300 mg QHS PO Last administered on 12/13/18 00:23; Admin Dose 300 MG; Start 12/09/18 at 21:00 Miscellaneous Information (*Order Clarification Bulletin) MEDICATION REQUIRES CLARIFICATION: Q8H XX ; Start 12/10/18 at 11:00 Nystatin (Nystatin Powder) 1 applic BID TOP Last administered on 12/13/18 08:03; Admin Dose 1 APPLIC; Start 12/10/18 at 21:00 Fluconazole (Diflucan) 100 mg DAILY PO Last administered on 12/13/18 08:03; Admin Dose 100 MG; Start 12/12/18 at 09:00 Promethazine HCl/ Codeine (Phenergan/ Codeine) 10 ml Q6 PRN PO COUGH Last administered on 12/12/18 08:34; Admin Dose 10 ML; Start 12/11/18 at 20:30 Diphenhydramine HCl (Benadryl) 25 mg Q6H PRN PO ITCHING Last administered on 12/13/18 02:33; Admin Dose 25 MG; Start 12/13/18 at 02:22 MICHELLE COLEMAN MD Dec 13, 2018 10:13
--- NOTE | 2018-12-13 10:45 | CONS ---
Date/Time of Note Date/Time of Note DATE: 12/13/18 TIME: 10:45 Assessment/Plan Assessment/Plan Assessment/Plan 1. Oliguric Acute kindey injury on CKD III due to ATN from septic shock, 2. Acute uremic encephalopathy 3. Acute hyperkalemia- resolved 4. Severe metabolic acidosis 5. Septic shock on pressors 2/2 UTI and bacteremia 6. acute hypoxemic respiraotry failure on BIPAP 7. acute on chronic,systolic and diastolic heart failure 8. H/o HTN 9. H/o COPD 10. Acute GI bleeding s/p 3 U PRBC , s/p EGD and Colonoscopy Plan: started on HD on 11/26/17- s/p Right chest permacath on 12/08/18- will keep pt on Fri, , Friday schedule [place] [facility] [place] [facility] [place], friday at 4 pm IV abx as per PMD, renally dose all abx and monitor electrolytes will follow up Result Diagram: 12/10/18 0506 12/10/18 0506 Consultation Date/Type/Reason Admit Date/Time Nov 26, 2018 at 11:28 Initial Consult Date 11/26/18 Type of Consult NEPHROLOGY Requesting Provider: KATIE MENDEZ 24 HR Interval Summary Free Text/Dictation S/p HD yesterday, afebrile, BP stable Exam/Review of Systems Vital Signs Vitals Vital Signs Date Temp Pulse Resp B/P (MAP) Pulse Ox O2 O2 Flow FiO2 Time Delivery Rate 12/13/18 76 08:47 12/13/18 20 99 21 08:14 12/13/18 97.6 117/58 07:21 (77) 12/13/18 Room Air 04:07 12/12/18 23:30 Intake and Output 12/12/18 12/12/18 12/13/18 1515:00 23:00 07:00 IntakeIntake Total 150 ml 400 ml 300 ml OutputOutput Total 100 ml 450 ml 350 ml BalanceBalance 50 ml -50 ml -50 ml Exam Constitutional: alert, well developed Respiratory: diminished breath sounds (at bases bilaterlly), + right chest permacath Cardiovascular: nl pulses, other (s1s2) Gastrointestinal: soft, non-tender Musculoskeletal: muscle weakness Extremities: normal pulses 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: nl speech, other (alert/responsive) Medications Medications Current Medications Albuterol/ Ipratropium (Duoneb) 3 ml Q6HWA RESP THERAPY HHN Last administered on 12/13/18at 08:13; Admin Dose 3 ML; Start 11/26/18 at 08:00 Acetaminophen (Tylenol Tab) 500 mg Q6H PRN PO MILD PAIN(1-3)OR ELEVATED TEMP Last administered on 12/10/18at 20:39; Admin Dose 500 MG; Start 11/25/18 at 22:30 Albumin Human 50 ml @ 100 mls/hr WITH DIALYSIS PRN IV SBP lower than 90 mm Hg Last administered on 12/12/18 22:30; Admin Dose 100 MLS/HR; Start 11/26/18 at 14:00 Sodium Chloride (NS) -To prime the dialy... DIRECTED FOR HD PRN IV SBP lower than 90 mm Hg ; Start 11/26/18 at 14:00 IV Flush (NS 10 ml) 10 ml PRN PRN IV IV PROTOCOL; Start 11/26/18 at 14:30 Hydralazine HCl (Apresoline) 20 mg Q6H PRN IV SBP > 160 Last administered on 11/29/18at 12:33; Admin Dose 20 MG; Start 11/28/18 at 07:00 Albuterol/ Ipratropium (Duoneb) 3 ml Q4H RESP THERAPY PRN HHN SHORTNESS OF BREATH Last administered on 12/02/18at 03:49; Admin Dose 3 ML; Start 11/29/18 at 01:00 Metoprolol Tartrate (Lopressor) 25 mg BID PO Last administered on 12/12/18at 08:30; Admin Dose 25 MG; Start 11/30/18 at 21:00 Metoprolol Tartrate (Lopressor) 5 mg Q4H PRN IV HR>110 Hold SBP<100; Start 11/30/18 at 12:30 Haloperidol (Haldol) 2 mg Q6H PRN IV hallucinations Last administered on 12/02/18at 03:21; Admin Dose 2 MG; Start 12/01/18 at 19:30 Nifedipine (Procardia Xl) 30 mg DAILY PO Last administered on 12/12/18 08:31; Admin Dose 30 MG; Start 12/07/18 at 09:00 Levothyroxine Sodium (Synthroid) 150 mcg DAILY@06 PO Last administered on 12/13/18 05:27; Admin Dose 150 MCG; Start 12/08/18 at 06:00 Heparin Sodium (Porcine) (Heparin (1000 Units/ml)) 3,700 unit AFTER DIALYSIS CATHETER Last administered on 12/12/18 23:58; Admin Dose 3,700 UNIT; Start at 16:00 Nystatin (Nystatin Susp) 5 ml QID PO Last administered on 12/13/18 08:03; Admin Dose 5 ML; Start 12/09/18 at 13:00 Pantoprazole (Protonix Tab) 40 mg DAILY@0600 PO Last administered on 12/13/18 05:28; Admin Dose 40 MG; Start 12/10/18 at 06:00 Gabapentin (Neurontin) 300 mg QHS PO Last administered on 12/13/18 00:23; Admin Dose 300 MG; Start 12/09/18 at 21:00 Miscellaneous Information (*Order Clarification Bulletin) MEDICATION REQUIRES CLARIFICATION: Q8H XX ; Start 12/10/18 at 11:00 Nystatin (Nystatin Powder) 1 applic BID TOP Last administered on 12/13/18 08:03; Admin Dose 1 APPLIC; Start 12/10/18 at 21:00 Fluconazole (Diflucan) 100 mg DAILY PO Last administered on 12/13/18 08:03; Admin Dose 100 MG; Start 12/12/18 at 09:00 Promethazine HCl/ Codeine (Phenergan/ Codeine) 10 ml Q6 PRN PO COUGH Last administered on 12/12/18 08:34; Admin Dose 10 ML; Start 12/11/18 at 20:30 Diphenhydramine HCl (Benadryl) 25 mg Q6H PRN PO ITCHING Last administered on 12/13/18 02:33; Admin Dose 25 MG; Start 12/13/18 at 02:22 GI HARTMAN MD Dec 13, 2018 10:45
--- NOTE | 2018-12-13 10:50 | CONS ---
Date/Time of Note Date/Time of Note DATE: 12/13/18 TIME: 10:47 Assessment/Plan Assessment/Plan Hospital Course 88 yo female presented with SOB, found to have septic and cardiogenic shock, stable on telemetry floor with acute drop in HH with positive FOB, S/P EGD/colon 12/07/18 1. Anemia -acute on chronic secondary to blood loss -pos FOB -hematochezia, no melena -s/p egd/colon 2. Acute respiratory failure -resolved -followed by Dr. Garcia 3. VRE in urine -pt was septic, stable now, ID following 4. S/P septic and cardiogenic shock 5. CKD III with acute renal failure -started on HD during this admission. -Dr Hill, nephrology 6. Acute on chronic diastolic CHF -Dr Iraheta from cardiology 7. Left lower lobe pneumonia 8. Hypothyroidism -management by primary 9. DNR status 10. External hemorrhoid 11. Moderate diverticulosis 12. Polyp, s/p polypectomy 13. 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 5cm hiatal hernia 15. Erosive gastritis 16. Moderate duodenitis Pathology 12/08: A-Stomach, biopsy: -- Oxyntic mucosa showing no significant histopathological abnormality. B-Esophagus, biopsy: -- Squamous mucosa showing mild acute inflammation and separate fragments of inflammatory exudate comprised of histiocytes, lymphocytes and neutrophils. -- No glandular mucosa is identified. -- Fungal yeast and pseudohyphae compatible with celeste species are identified in Alcian Blue/PAS stain (positive control concurrently reviewed). -- No evidence of dysplasia or malignancy. C-Cecum, polyp, biopsy: -- Diminutive tubular adenoma. -- No evidence of high grade dysplasia or malignancy. Plan: check B12, CBC, CMP in am Miralax 17 gm PO QD Dulcolax 10 mg PO x 1 Continue with Nystatin swish and swallow High fiber diet PPI BID Diet as tolerated Pt examined and plan of care discussed with Dr. Lewis Result Diagram: 12/10/18 0506 12/10/18 0506 Consultation Date/Type/Reason Admit Date/Time Nov 26, 2018 at 11:28 Initial Consult Date 11/27/18 Requesting Provider: KATIE MENDEZ 24 HR Interval Summary Free Text/Dictation No N/V. Denies abd pain. NO bm for last few days. Tolerating PO diet. Tongue still swollen. Exam/Review of Systems Vital Signs Vitals Vital Signs Date Temp Pulse Resp B/P (MAP) Pulse Ox O2 O2 Flow FiO2 Time Delivery Rate 12/13/18 76 08:47 12/13/18 20 99 21 08:14 12/13/18 97.6 117/58 07:21 (77) 12/13/18 Room Air 04:07 12/12/18 23:30 Intake and Output 12/12/18 12/12/18 12/13/18 1515:00 23:00 07:00 IntakeIntake Total 150 ml 400 ml 300 ml OutputOutput Total 100 ml 450 ml 350 ml BalanceBalance 50 ml -50 ml -50 ml Exam Constitutional: alert, oriented Psych: no complaints Head: normocephalic Eyes: PERRL Gastrointestinal: soft, non-tender Extremities: normal pulses, other 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: nl mental status Medications Medications Current Medications Albuterol/ Ipratropium (Duoneb) 3 ml Q6HWA RESP THERAPY HHN Last administered on 12/13/18at 08:13; Admin Dose 3 ML; Start 11/26/18 at 08:00 Acetaminophen (Tylenol Tab) 500 mg Q6H PRN PO MILD PAIN(1-3)OR ELEVATED TEMP Last administered on 12/10/18at 20:39; Admin Dose 500 MG; Start 11/25/18 at 22:30 Albumin Human 50 ml @ 100 mls/hr WITH DIALYSIS PRN IV SBP lower than 90 mm Hg Last administered on 12/12/18at 22:30; Admin Dose 100 MLS/HR; Start 11/26/18 at 14:00 Sodium Chloride (NS) -To prime the dialy... DIRECTED FOR HD PRN IV SBP lower than 90 mm Hg ; Start 11/26/18 at 14:00 IV Flush (NS 10 ml) 10 ml PRN PRN IV IV PROTOCOL; Start 11/26/18 at 14:30 Hydralazine HCl (Apresoline) 20 mg Q6H PRN IV SBP > 160 Last administered on 11/29/18at 12:33; Admin Dose 20 MG; Start 11/28/18 at 07:00 Albuterol/ Ipratropium (Duoneb) 3 ml Q4H RESP THERAPY PRN HHN SHORTNESS OF BREATH Last administered on 12/02/18 03:49; Admin Dose 3 ML; Start 11/29/18 at 01:00 Metoprolol Tartrate (Lopressor) 25 mg BID PO Last administered on 12/12/18 08:30; Admin Dose 25 MG; Start 11/30/18 at 21:00 Metoprolol Tartrate (Lopressor) 5 mg Q4H PRN IV HR>110 Hold SBP<100; Start 11/30/18 at 12:30 Haloperidol (Haldol) 2 mg Q6H PRN IV hallucinations Last administered on 12/02/18 03:21; Admin Dose 2 MG; Start 12/01/18 at 19:30 Nifedipine (Procardia Xl) 30 mg DAILY PO Last administered on 12/12/18 08:31; Admin Dose 30 MG; Start 12/07/18 at 09:00 Levothyroxine Sodium (Synthroid) 150 mcg DAILY@06 PO Last administered on 05:27; Admin Dose 150 MCG; Start 12/08/18 at 06:00 Heparin Sodium (Porcine) (Heparin (1000 Units/ml)) 3,700 unit AFTER DIALYSIS CATHETER Last administered on 12/12/18 23:58; Admin Dose 3,700 UNIT; Start 12/08/18 at 16:00 Nystatin (Nystatin Susp) 5 ml QID PO Last administered on 12/13/18 08:03; Admin Dose 5 ML; Start 12/09/18 at 13:00 Pantoprazole (Protonix Tab) 40 mg DAILY@0600 PO Last administered on 12/13/18 05:28; Admin Dose 40 MG; Start 12/10/18 at 06:00 Gabapentin (Neurontin) 300 mg QHS PO Last administered on 12/13/18 00:23; Admin Dose 300 MG; Start 12/09/18 at 21:00 Miscellaneous Information (*Order Clarification Bulletin) MEDICATION REQUIRES CLARIFICATION: Q8H XX ; Start 12/10/18 at 11:00 Nystatin (Nystatin Powder) 1 applic BID TOP Last administered on 12/13/18 08:03; Admin Dose 1 APPLIC; Start 12/10/18 at 21:00 Fluconazole (Diflucan) 100 mg DAILY PO Last administered on 12/13/18 08:03; Admin Dose 100 MG; Start 12/12/18 at 09:00 Promethazine HCl/ Codeine (Phenergan/ Codeine) 10 ml Q6 PRN PO COUGH Last administered on 12/12/18at 08:34; Admin Dose 10 ML; Start 12/11/18 at 20:30 Diphenhydramine HCl (Benadryl) 25 mg Q6H PRN PO ITCHING Last administered on 12/13/18at 02:33; Admin Dose 25 MG; Start 12/13/18 at 02:22 LAURA HERNANDEZ Dec 13, 2018 10:50
[2018-12-13] MEDS ORDERED: BISACODYL (EC) 5 MG TAB PO ONE (11:00)
--- NOTE | 2018-12-13 14:45 | PN ---
Date/Time of Note Date/Time of Note DATE: 12/13/18 TIME: 14:45 Assessment/Plan VTE Prophylaxis Risk score (from Ns)>0 risk: 6 SCD applied (from Ns): No Lines/Catheters IV Catheter Type (from Nrs): permacath Urinary Cath still in place: Yes Reason Cath still needed: urinary retention Assessment/Plan Assessment/Plan -Anemia secondary to GI bleed. Protonix IV. Heparin is stopped. Transfuse as needed. -Status post EGD with notion of erosive gastritis and moderate duodenitis as w ell as hiatal hernia continue PPI. Status post colonoscopy with polypectomy and notion of moderate diverticulosis on 12/07/2018. Dr. Lewis is following in gastroenterology consultation. -Lissy esophagitis, continue nystatin swish and swallow. -Acute respiratory failure, resolved. Dr. Garcia is following in pulmonology consultation. -S/p sepsis secondary to UTI. Continue antibiotics per ID. Dr. Jordan is following in infection disease consultation. -S/p septic and cardiogenic shock -s/p Left lower lobe pneumonia -Acute on chronic systolic and diastolic congestive heart failure, improved with hemodialysis. Dr. Iraheta is following in cardiology consultation. -ARF on CKD. Patient started on hemodialysis during this admission. Continue hemodialysis per nephrology. Dr Hill is following in nephrology consultation. -Pulmonary edema -Hypothyroidism, continue Synthroid. -DNR status Further recommendations based on clinical course. Plan of care discussed with Dr. Olivier. Result Diagram: 12/10/18 0506 12/10/18 0506 Exam/Review of Systems Vital Signs Vitals Vital Signs Date Temp Pulse Resp B/P (MAP) Pulse Ox O2 O2 Flow FiO2 Time Delivery Rate 12/13/18 77 20 21 14:15 12/13/18 98.3 131/61 96 11:20 (84) 12/13/18 Room Air 04:07 12/12/18 23:30 Intake and Output 12/12/18 12/12/18 12/13/18 1515:00 23:00 07:00 IntakeIntake Total 150 ml 400 ml 300 ml OutputOutput Total 100 ml 450 ml 350 ml BalanceBalance 50 ml -50 ml -50 ml Medications Medications Current Medications Albuterol/ Ipratropium (Duoneb) 3 ml Q6HWA RESP THERAPY HHN Last administered on 12/13/18at 14:11; Admin Dose 3 ML; Start 11/26/18 at 08:00 Acetaminophen (Tylenol Tab) 500 mg Q6H PRN PO MILD PAIN(1-3)OR ELEVATED TEMP Last administered on 12/10/18at 20:39; Admin Dose 500 MG; Start 11/25/18 at 22:30 Albumin Human 50 ml @ 100 mls/hr WITH DIALYSIS PRN IV SBP lower than 90 mm Hg Last administered on 12/12/18 22:30; Admin Dose 100 MLS/HR; Start 11/26/18 at 14:00 Sodium Chloride (NS) -To prime the dialy... DIRECTED FOR HD PRN IV SBP lower than 90 mm Hg ; Start 11/26/18 at 14:00 IV Flush (NS 10 ml) 10 ml PRN PRN IV IV PROTOCOL; Start 11/26/18 at 14:30 Hydralazine HCl (Apresoline) 20 mg Q6H PRN IV SBP > 160 Last administered on 11/29/18at 12:33; Admin Dose 20 MG; Start 11/28/18 at 07:00 Albuterol/ Ipratropium (Duoneb) 3 ml Q4H RESP THERAPY PRN HHN SHORTNESS OF BREATH Last administered on 12/02/18at 03:49; Admin Dose 3 ML; Start 11/29/18 at 01:00 Metoprolol Tartrate (Lopressor) 25 mg BID PO Last administered on 12/12/18at 08 :30; Admin Dose 25 MG; Start 11/30/18 at 21:00 Metoprolol Tartrate (Lopressor) 5 mg Q4H PRN IV HR>110 Hold SBP<100; Start 11/30/18 at 12:30 Haloperidol (Haldol) 2 mg Q6H PRN IV hallucinations Last administered on 12/02/18 03:21; Admin Dose 2 MG; Start 12/01/18 at 19:30 Nifedipine (Procardia Xl) 30 mg DAILY PO Last administered on 12/12/18 08:31; Admin Dose 30 MG; Start 12/07/18 at 09:00 Levothyroxine Sodium (Synthroid) 150 mcg DAILY@06 PO Last administered on 12/13/18at 05:27; Admin Dose 150 MCG; Start 12/08/18 at 06:00 Heparin Sodium (Porcine) (Heparin (1000 Units/ml)) 3,700 unit AFTER DIALYSIS CATHETER Last administered on 12/12/18 23:58; Admin Dose 3,700 UNIT; Start 12/08/18 at 16:00 Nystatin (Nystatin Susp) 5 ml QID PO Last administered on 12/13/18at 13:53; Admin Dose 5 ML; Start 12/09/18 at 13:00 Pantoprazole (Protonix Tab) 40 mg DAILY@0600 PO Last administered on 12/13/18at 05:28; Admin Dose 40 MG; Start 12/10/18 at 06:00 Gabapentin (Neurontin) 300 mg QHS PO Last administered on 12/13/18at 00:23; Admin Dose 300 MG; Start 12/09/18 at 21:00 Miscellaneous Information (*Order Clarification Bulletin) MEDICATION REQUIRES CLARIFICATION: Q8H XX ; Start 12/10/18 at 11:00 Nystatin (Nystatin Powder) 1 applic BID TOP Last administered on 12/13/18at 08:03; Admin Dose 1 APPLIC; Start 12/10/18 at 21:00 Fluconazole (Diflucan) 100 mg DAILY PO Last administered on 12/13/18 08:03; Admin Dose 100 MG; Start 12/12/18 at 09:00 Promethazine HCl/ Codeine (Phenergan/ Codeine) 10 ml Q6 PRN PO COUGH Last administered on 12/12/18at 08:34; Admin Dose 10 ML; Start 12/11/18 at 20:30 Diphenhydramine HCl (Benadryl) 25 mg Q6H PRN PO ITCHING Last administered on 12/13/18at 02:33; Admin Dose 25 MG; Start 12/13/18 at 02:22 Polyethylene Glycol (Miralax) 17 gm DAILY PO ; Start 12/14/18 at 09:00 KATIE MENDEZ Dec 13, 2018 14:45
--- NOTE | 2018-12-13 22:22 | CONS ---
Date/Time of Note Date/Time of Note DATE: 12/13/18 TIME: 22:19 Assessment/Plan Assessment/Plan Hospital Course - s/p leukocytosis on 12/05/2018 may reflect receipt of pRBC x2 units - s/p leukocytosis likely due to steroid margination 11/25/2018-12/01/2018 - s/p severe sepsis with septic shock due to UTI +/- bacteremia; s/p Dopamine - s/p UTI due to klebsiella and proteus - treated with ceftriaxone (11/25/2018- 11/29/2018) - s/p bacteremia 1/2 sets from 11/25/2018 due to coag negative Staph, likely contaminant - s/p SIRS due to acute hypoxic resp failure and acute on chronic renal failure - acute hypoxic resp failure, probably due to CHF exacerbation +/- aspiration pneumonia/pneumonitis, off bipap - acute on chronic diastolic CHF, improved after HD - s/p tachycardia c/w AF/AFL with RVR - now in sinus - s/p bradycardia to 40's, now SR - acute on chronic renal failure, started on HD on 11/26/2018 - s/p R IJ permacath placement 12/08/2018 - acute on chronic anemia requiring PRBC - s/p upper GIB - gastritis, duodenitis, esophagitis and moderate size hiatal hernia per EGD with biopsy on 12/07/2018; Path +fungal yeast in esophagus - esophageal candidiasis - on Fluconazole and po nystatin - external hemorrhoids, mild to moderate diverticulosis per Colonoscopy and polypectomy 12/07/2018; Path negative for dysplasia or malignancy - intertrigo in groin area - underlying COPD - CAD - hypothyroidism - TSH elevated and FT4 depressed - gout - eschar of L 4th toe, probably ischemic eschar/ischemia - acute encephalopathy due to sepsis, improving - note: Pt completed cefepime (11/30/2018-12/02/2018) and ceftriaxone (11/25/2018-11/29/2018) recommendations: - continue fluconazole (12/09/2018-, switched to PO on 12/12/2018) and PO nystatin for oral candidiasis - continue nystatin powder (12/10/2018-) for intertrigo of b/l groin management d/w Pt Result Diagram: 12/10/18 0506 12/10/18 0506 Consultation Date/Type/Reason Admit Date/Time Nov 26, 2018 at 11:28 Initial Consult Date 11/27/18 Type of Consult ID Requesting Provider: KATIE MENDEZ 24 HR Interval Summary Constitutional: other (wants to go home) Detailed Summary Eyes: no complaints ENT: no complaints Respiratory: sputum Cardiovascular: no complaints Gastrointestinal: no complaints Musculoskeletal: restricted range of motion Neurologic: No headache Exam/Review of Systems Vital Signs Vitals Vital Signs Date Temp Pulse Resp B/P (MAP) Pulse Ox O2 O2 Flow FiO2 Time Delivery Rate 12/13/18 88 20:00 12/13/18 98.0 19 144/67 99 19:42 (92) 12/13/18 21 19:35 12/13/18 Room Air 04:07 12/12/18 23:30 Intake and Output 12/12/18 12/12/18 12/13/18 1515:00 23:00 07:00 IntakeIntake Total 150 ml 400 ml 300 ml OutputOutput Total 100 ml 450 ml 350 ml BalanceBalance 50 ml -50 ml -50 ml Exam Constitutional: frail Psych: no complaints, nl mood/affect Head: normocephalic, atraumatic Eyes: nl conjunctiva, nl lids ENMT: nl external ears & nose, nl nasal mucosa & septum, mucosa pink and moist Neck: other (not swollen) Respiratory: other (congested sound) Cardiovascular: regular rate and rhythm, nl pulses Gastrointestinal: soft, non-tender Musculoskeletal: nl extremities to inspection; No swelling Extremities: No edema 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: nl mental status, nl speech Skin: ecchymosis Medications Medications Current Medications Albuterol/ Ipratropium (Duoneb) 3 ml Q6HWA RESP THERAPY HHN Last administered on 12/13/18at 19:34; Admin Dose 3 ML; Start 11/26/18 at 08:00 Acetaminophen (Tylenol Tab) 500 mg Q6H PRN PO MILD PAIN(1-3)OR ELEVATED TEMP Last administered on 12/10/18at 20:39; Admin Dose 500 MG; Start 11/25/18 at 22:30 Albumin Human 50 ml @ 100 mls/hr WITH DIALYSIS PRN IV SBP lower than 90 mm Hg Last administered on 12/12/18at 22:30; Admin Dose 100 MLS/HR; Start 11/26/18 at 14:00 Sodium Chloride (NS) -To prime the dialy... DIRECTED FOR HD PRN IV SBP lower than 90 mm Hg ; Start 11/26/18 at 14:00 IV Flush (NS 10 ml) 10 ml PRN PRN IV IV PROTOCOL; Start 11/26/18 at 14:30 Hydralazine HCl (Apresoline) 20 mg Q6H PRN IV SBP > 160 Last administered on 11/29/18at 12:33; Admin Dose 20 MG; Start 11/28/18 at 07:00 Albuterol/ Ipratropium (Duoneb) 3 ml Q4H RESP THERAPY PRN HHN SHORTNESS OF BREATH Last administered on 12/02/18at 03:49; Admin Dose 3 ML; Start 11/29/18 at 01:00 Metoprolol Tartrate (Lopressor) 25 mg BID PO Last administered on 12/13/18at 20:55; Admin Dose 25 MG; Start 11/30/18 at 21:00 Metoprolol Tartrate (Lopressor) 5 mg Q4H PRN IV HR>110 Hold SBP<100; Start 11/30/18 at 12:30 Haloperidol (Haldol) 2 mg Q6H PRN IV hallucinations Last administered on 12/02/18at 03:21; Admin Dose 2 MG; Start 12/01/18 at 19:30 Nifedipine (Procardia Xl) 30 mg DAILY PO Last administered on 12/12/18at 08:31; Admin Dose 30 MG; Start 12/07/18 at 09:00 Levothyroxine Sodium (Synthroid) 150 mcg DAILY@06 PO Last administered on 12/13/18at 05:27; Admin Dose 150 MCG; Start 12/08/18 at 06:00 Heparin Sodium (Porcine) (Heparin (1000 Units/ml)) 3,700 unit AFTER DIALYSIS CATHETER Last administered on 12/12/18at 23:58; Admin Dose 3,700 UNIT; Start 12/08/18 at 16:00 Nystatin (Nystatin Susp) 5 ml QID PO Last administered on 12/13/18at 20:54; Admin Dose 5 ML; Start 12/09/18 at 13:00 Pantoprazole (Protonix Tab) 40 mg DAILY@0600 PO Last administered on 12/13/18at 05:28; Admin Dose 40 MG; Start 12/10/18 at 06:00 Gabapentin (Neurontin) 300 mg QHS PO Last administered on 12/13/18at 20:54; Ad min Dose 300 MG; Start 12/09/18 at 21:00 Miscellaneous Information (*Order Clarification Bulletin) MEDICATION REQUIRES CLARIFICATION: Q8H XX ; Start 12/10/18 at 11:00 Nystatin (Nystatin Powder) 1 applic BID TOP Last administered on 12/13/18at 20:55; Admin Dose 1 APPLIC; Start 12/10/18 at 21:00 Fluconazole (Diflucan) 100 mg DAILY PO Last administered on 12/13/18at 08:03; Admin Dose 100 MG; Start 12/12/18 at 09:00 Promethazine HCl/ Codeine (Phenergan/ Codeine) 10 ml Q6 PRN PO COUGH Last administered on 12/12/18at 08:34; Admin Dose 10 ML; Start 12/11/18 at 20:30 Diphenhydramine HCl (Benadryl) 25 mg Q6H PRN PO ITCHING Last administered on 12/13/18at 02:33; Admin Dose 25 MG; Start 12/13/18 at 02:22 Polyethylene Glycol (Miralax) 17 gm DAILY PO ; Start 12/14/18 at 09:00 RICHARD MOBLEY M.D. Dec 13, 2018 22:22
[2018-12-14] VITALS (12 sets, daily range): BP systolic 111–141; BP diastolic 56–67; PULSE 70–87; RESP 18–20
[2018-12-14] MEDS: PANTOPRAZOLE (EC) 40 MG TAB PO SCH (05:49)
[2018-12-14] MEDS: LEVOTHYROXINE 150 MCG TAB PO SCH (05:49)
[2018-12-14] MEDS: POLYETHYLENE GLYCOL 17 GM PACKET PO SCH (08:14)
[2018-12-14] MEDS: NYSTATIN 30 GM POWDER BTL TOP SCH ×2 (08:14→20:38)
[2018-12-14] MEDS: METOPROLOL 25 MG TAB PO SCH ×3 (08:14→20:37)
[2018-12-14] MEDS: NYSTATIN SUSP 5 ML CUP PO SCH ×4 (08:14→20:36)
[2018-12-14] MEDS: FLUCONAZOLE 100 MG TAB PO SCH (08:14)
[2018-12-14] MEDS: NIFEdipine (XL) 30 MG TAB PO SCH ×2 (08:14→09:00)
--- NOTE | 2018-12-14 08:45 | CONS ---
Date/Time of Note Date/Time of Note DATE: 12/14/18 TIME: 08:43 Assessment/Plan Assessment/Plan Hospital Course 88 yo female presented with SOB, found to have septic and cardiogenic shock, stable on telemetry floor with acute drop in HH with positive FOB, S/P EGD/colon 12/07/18 1. Anemia -acute on chronic secondary to blood loss -pos FOB -hematochezia, no melena -s/p egd/colon 2. Acute respiratory failure -resolved -followed by Dr. Garcia 3. VRE in urine -pt was septic, stable now, ID following 4. S/P septic and cardiogenic shock 5. CKD III with acute renal failure -started on HD during this admission. -Dr Hill, nephrology 6. Acute on chronic diastolic CHF -Dr Iraheta from cardiology 7. Left lower lobe pneumonia 8. Hypothyroidism -management by primary 9. DNR status 10. External hemorrhoid 11. Moderate diverticulosis 12. Polyp, s/p polypectomy 13. 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 5cm hiatal hernia 15. Erosive gastritis 16. Moderate duodenitis Pathology 12/08: A-Stomach, biopsy: -- Oxyntic mucosa showing no significant histopathological abnormality. B-Esophagus, biopsy: -- Squamous mucosa showing mild acute inflammation and separate fragments of inflammatory exudate comprised of histiocytes, lymphocytes and neutrophils. -- No glandular mucosa is identified. -- Fungal yeast and pseudohyphae compatible with celeste species are identified in Alcian Blue/PAS stain (positive control concurrently reviewed). -- No evidence of dysplasia or malignancy. C-Cecum, polyp, biopsy: -- Diminutive tubular adenoma. -- No evidence of high grade dysplasia or malignancy. Plan: Continue with bowel regimen Continue with Nystatin swish and swallow High fiber diet PPI BID Diet as tolerated Monitor for active GI bleeding Pt examined and plan of care discussed with Dr. Lewis Result Diagram: 12/14/18 0506 12/14/18 0506 Results 24hrs Laboratory Tests Test 12/14/18 05:06 White Blood Count 6.1 Red Blood Count 2.77 L Hemoglobin 8.2 L Hematocrit 25.9 L Mean Corpuscular Volume 93.5 Mean Corpuscular Hemoglobin 29.6 Mean Corpuscular Hemoglobin Concent 31.7 L Red Cell Distribution Width 16.3 H Platelet Count 224 # Mean Platelet Volume 9.4 Immature Granulocytes % 1.300 H Neutrophils % 61.7 Lymphocytes % 22.4 Monocytes % 10.5 Eosinophils % 3.4 Basophils % 0.7 Nucleated Red Blood Cells % 0.0 Immature Granulocytes # 0.080 H Neutrophils # 3.8 Lymphocytes # 1.4 Monocytes # 0.6 Eosinophils # 0.2 Basophils # 0.0 Nucleated Red Blood Cells # 0.0 Sodium Level 137 Potassium Level 4.4 Chloride Level 99 Carbon Dioxide Level 28 Anion Gap 10 Blood Urea Nitrogen 38 H Creatinine 4.06 H Est Glomerular Filtrat Rate mL/min Glucose Level 112 Calcium Level 9.1 Total Bilirubin 0.2 Direct Bilirubin 0.00 Indirect Bilirubin 0.2 Aspartate Amino Transf (AST/SGOT) 22 Alanine Aminotransferase (ALT/SGPT) 18 Alkaline Phosphatase 92 Total Protein 6.2 Albumin 3.4 Globulin 2.80 Albumin/Globulin Ratio 1.21 Vitamin B12 Level > 1000 H Consultation Date/Type/Reason Admit Date/Time Nov 26, 2018 at 11:28 Initial Consult Date 11/27/18 Requesting Provider: KATIE MENDEZ 24 HR Interval Summary Free Text/Dictation pt had bm. No evidence of GI bleeding. Denies abd pain, n/v. Exam/Review of Systems Vital Signs Vitals Vital Signs Date Temp Pulse Resp B/P (MAP) Pulse Ox O2 O2 Flow FiO2 Time Delivery Rate 12/14/18 98.0 71 18 119/59 97 Room Air 07:27 (79) 12/13/18 21 19:35 12/12/18 23:30 Intake and Output 12/13/18 12/13/18 12/14/18 1515:00 23:00 07:00 IntakeIntake Total 400 ml 300 ml OutputOutput Total 100 ml 175 ml BalanceBalance 300 ml 125 ml Medications Medications Current Medications Albuterol/ Ipratropium (Duoneb) 3 ml Q6HWA RESP THERAPY HHN Last administered on 12/13/18at 19:34; Admin Dose 3 ML; Start 11/26/18 at 08:00 Acetaminophen (Tylenol Tab) 500 mg Q6H PRN PO MILD PAIN(1-3)OR ELEVATED TEMP Last administered on 12/10/18at 20:39; Admin Dose 500 MG; Start 11/25/18 at 22:30 Albumin Human 50 ml @ 100 mls/hr WITH DIALYSIS PRN IV SBP lower than 90 mm Hg Last administered on 12/12/18at 22:30; Admin Dose 100 MLS/HR; Start 11/26/18 at 14:00 Sodium Chloride (NS) -To prime the dialy... DIRECTED FOR HD PRN IV SBP lower than 90 mm Hg ; Start 11/26/18 at 14:00 IV Flush (NS 10 ml) 10 ml PRN PRN IV IV PROTOCOL; Start 11/26/18 at 14:30 Hydralazine HCl (Apresoline) 20 mg Q6H PRN IV SBP > 160 Last administered on 11/29/18at 12:33; Admin Dose 20 MG; Start 11/28/18 at 07:00 Albuterol/ Ipratropium (Duoneb) 3 ml Q4H RESP THERAPY PRN HHN SHORTNESS OF BREATH Last administered on 12/02/18at 03:49; Admin Dose 3 ML; Start 11/29/18 at 01:00 Metoprolol Tartrate (Lopressor) 25 mg BID PO Last administered on 12/13/18at 20:55; Admin Dose 25 MG; Start 11/30/18 at 21:00 Metoprolol Tartrate (Lopressor) 5 mg Q4H PRN IV HR>110 Hold SBP<100; Start 11/30/18 at 12:30 Haloperidol (Haldol) 2 mg Q6H PRN IV hallucinations Last administered on 12/02/18 03:21; Admin Dose 2 MG; Start 12/01/18 at 19:30 Nifedipine (Procardia Xl) 30 mg DAILY PO Last administered on 12/12/18 08:31; Admin Dose 30 MG; Start 12/07/18 at 09:00 Levothyroxine Sodium (Synthroid) 150 mcg DAILY@06 PO Last administered on 12/14/18 05:49; Admin Dose 150 MCG; Start 12/08/18 at 06:00 Heparin Sodium (Porcine) (Heparin (1000 Units/ml)) 3,700 unit AFTER DIALYSIS CATHETER Last administered on 12/12/18at 23:58; Admin Dose 3,700 UNIT; Start 12/08/18 at 16:00 Nystatin (Nystatin Susp) 5 ml QID PO Last administered on 12/14/18at 08:14; Admin Dose 5 ML; Start 12/09/18 at 13:00 Pantoprazole (Protonix Tab) 40 mg DAILY@0600 PO Last administered on 12/14/18at 05:49; Admin Dose 40 MG; Start 12/10/18 at 06:00 Gabapentin (Neurontin) 300 mg QHS PO Last administered on 12/13/18at 20:54; Admin Dose 300 MG; Start 12/09/18 at 21:00 Miscellaneous Information (*Order Clarification Bulletin) MEDICATION REQUIRES CLARIFICATION: Q8H XX ; Start 12/10/18 at 11:00 Nystatin (Nystatin Powder) 1 applic BID TOP Last administered on 12/14/18 08:14; Admin Dose 1 APPLIC; Start 12/10/18 at 21:00 Fluconazole (Diflucan) 100 mg DAILY PO Last administered on 12/14/18at 08:14; Admin Dose 100 MG; Start 12/12/18 at 09:00 Promethazine HCl/ Codeine (Phenergan/ Codeine) 10 ml Q6 PRN PO COUGH Last ad ministered on 12/12/18at 08:34; Admin Dose 10 ML; Start 12/11/18 at 20:30 Diphenhydramine HCl (Benadryl) 25 mg Q6H PRN PO ITCHING Last administered on 12/13/18 02:33; Admin Dose 25 MG; Start 12/13/18 at 02:22 Polyethylene Glycol (Miralax) 17 gm DAILY PO Last administered on 12/14/18 08:14; Admin Dose 17 GM; Start 12/14/18 at 09:00 LAURA HERNANDEZ Dec 14, 2018 08:45
--- NOTE | 2018-12-14 09:01 | CONS ---
Date/Time of Note Date/Time of Note DATE: 12/14/18 TIME: 08:59 Assessment/Plan Assessment/Plan Assessment/Plan 1. Shock, on dopamine pressor support at this time with previously preserved EF by most recent echo September 2018 of 60% to 65%.-improved off dopamine and tolerating BP medications - much better now - BP stable. Better now. 2. Abnormal echocardiogram, assess for acute coronary syndrome- r/o [place], no intervention planned. 3. Congestive heart failure, diastolic, acute on chronic, in the setting of renal failure. Remove fluid with HD. Con't to optimize therpy now. 4. Renal failure - HD per renal team. 5. Anemia-requiring transfusions- H/H stable currently. 6. Hyponatremia-improved 7. Urinary tract infection - on anti-Bx, treated. 8. Tachycardia-c/w AF/AFL with RVR - rate controlled now. 9. Bradycardia- to 40's when converts to SR - no indication for pacer now. 10. Esophagitis-by endoscopy celeste Result Diagram: 12/14/18 0506 12/14/18 0506 Results 24hrs Laboratory Tests Test 12/14/18 05:06 White Blood Count 6.1 Red Blood Count 2.77 L Hemoglobin 8.2 L Hematocrit 25.9 L Mean Corpuscular Volume 93.5 Mean Corpuscular Hemoglobin 29.6 Mean Corpuscular Hemoglobin Concent 31.7 L Red Cell Distribution Width 16.3 H Platelet Count 224 # Mean Platelet Volume 9.4 Immature Granulocytes % 1.300 H Neutrophils % 61.7 Lymphocytes % 22.4 Monocytes % 10.5 Eosinophils % 3.4 Basophils % 0.7 Nucleated Red Blood Cells % 0.0 Immature Granulocytes # 0.080 H Neutrophils # 3.8 Lymphocytes # 1.4 Monocytes # 0.6 Eosinophils # 0.2 Basophils # 0.0 Nucleated Red Blood Cells # 0.0 Sodium Level 137 Potassium Level 4.4 Chloride Level 99 Carbon Dioxide Level 28 Anion Gap 10 Blood Urea Nitrogen 38 H Creatinine 4.06 H Est Glomerular Filtrat Rate mL/min Glucose Level 112 Calcium Level 9.1 Total Bilirubin 0.2 Direct Bilirubin 0.00 Indirect Bilirubin 0.2 Aspartate Amino Transf (AST/SGOT) 22 Alanine Aminotransferase (ALT/SGPT) 18 Alkaline Phosphatase 92 Total Protein 6.2 Albumin 3.4 Globulin 2.80 Albumin/Globulin Ratio 1.21 Vitamin B12 Level > 1000 H Consultation Date/Type/Reason Admit Date/Time Nov 26, 2018 at 11:28 Initial Consult Date 11/27/18 Requesting Provider: KATIE MENDEZ 24 HR Interval Summary Free Text/Dictation NO acute events - pt stable overall- BP Rx - con't HD as tolerated. ROS: No fever, no chills, no nausea, no vomiting, no diarrhea/constipation No recent weight changes No chest pain, no PND, no orthopnea - mild SOB. No dizziness, blurred vision No thirst, no heat or cold intolerance Exam/Review of Systems Vital Signs Vitals Vital Signs Date Temp Pulse Resp B/P (MAP) Pulse Ox O2 O2 Flow FiO2 Time Delivery Rate 12/14/18 98.0 71 18 119/59 97 Room Air 07:27 (79) 12/13/18 19:35 12/12/18 23:30 Intake and Output 12/13/18 12/13/18 12/14/18 1515:00 23:00 07:00 IntakeIntake Total 400 ml 300 ml OutputOutput Total 100 ml 175 ml BalanceBalance 300 ml 125 ml Exam General: WN/WD/NAD, AOx 2-3 HEENT: Unicetric/atraumatic/EOMI (follow commands) NECK: JVD elevated, no thyromegaly Lymph: no lymphadenopathy HEART: regular with no S3, II/ systolic murmur at apex LUNGS: Coarse sounds ABD: soft, NT, ND, +BS : Intact Neuro: non focal SKIN: chronic changes EXT: trace edema Medications Medications Current Medications Albuterol/ Ipratropium (Duoneb) 3 ml Q6HWA RESP THERAPY HHN Last administered on 12/13/18at 19:34; Admin Dose 3 ML; Start 11/26/18 at 08:00 Acetaminophen (Tylenol Tab) 500 mg Q6H PRN PO MILD PAIN(1-3)OR ELEVATED TEMP Last administered on 12/10/18at 20:39; Admin Dose 500 MG; Start 11/25/18 at 22:30 Albumin Human 50 ml @ 100 mls/hr WITH DIALYSIS PRN IV SBP lower than 90 mm Hg Last administered on 12/12/18at 22:30; Admin Dose 100 MLS/HR; Start 11/26/18 at 14:00 Sodium Chloride (NS) -To prime the dialy... DIRECTED FOR HD PRN IV SBP lower than 90 mm Hg ; Start 11/26/18 at 14:00 IV Flush (NS 10 ml) 10 ml PRN PRN IV IV PROTOCOL; Start 11/26/18 at 14:30 Hydralazine HCl (Apresoline) 20 mg Q6H PRN IV SBP > 160 Last administered on 11/29/18at 12:33; Admin Dose 20 MG; Start 11/28/18 at 07:00 Albuterol/ Ipratropium (Duoneb) 3 ml Q4H RESP THERAPY PRN HHN SHORTNESS OF BREATH Last administered on 12/02/18at 03:49; Admin Dose 3 ML; Start 11/29/18 at 01:00 Metoprolol Tartrate (Lopressor) 25 mg BID PO Last administered on 12/13/18at 20:55; Admin Dose 25 MG; Start 11/30/18 at 21:00 Metoprolol Tartrate (Lopressor) 5 mg Q4H PRN IV HR>110 Hold SBP<100; Start 11/30/18 at 12:30 Haloperidol (Haldol) 2 mg Q6H PRN IV hallucinations Last administered on 12/02/18at 03:21; Admin Dose 2 MG; Start 12/01/18 at 19:30 Nifedipine (Procardia Xl) 30 mg DAILY PO Last administered on 12/12/18at 08:31; Admin Dose 30 MG; Start 12/07/18 at 09:00 Levothyroxine Sodium (Synthroid) 150 mcg DAILY@06 PO Last administered on 12/14/18at 05:49; Admin Dose 150 MCG; Start 12/08/18 at 06:00 Heparin Sodium (Porcine) (Heparin (1000 Units/ml)) 3,700 unit AFTER DIALYSIS CATHETER Last administered on 12/12/18at 23:58; Admin Dose 3,700 UNIT; Start 12/08/18 at 16:00 Nystatin (Nystatin Susp) 5 ml QID PO Last administered on 12/14/18at 08:14; Admin Dose 5 ML; Start 12/09/18 at 13:00 Pantoprazole (Protonix Tab) 40 mg DAILY@0600 PO Last administered on 12/14/18at 05:49; Admin Dose 40 MG; Start 12/10/18 at 06:00 Gabapentin (Neurontin) 300 mg QHS PO Last administered on 12/13/18at 20:54; Admin Dose 300 MG; Start 12/09/18 at 21:00 Miscellaneous Information (*Order Clarification Bulletin) MEDICATION REQUIRES CLARIFICATION: Q8H XX ; Start 12/10/18 at 11:00 Nystatin (Nystatin Powder) 1 applic BID TOP Last administered on 12/14/18at 08:1 4; Admin Dose 1 APPLIC; Start 12/10/18 at 21:00 Fluconazole (Diflucan) 100 mg DAILY PO Last administered on 12/14/18at 08:14; Admin Dose 100 MG; Start 12/12/18 at 09:00 Promethazine HCl/ Codeine (Phenergan/ Codeine) 10 ml Q6 PRN PO COUGH Last administered on 12/12/18at 08:34; Admin Dose 10 ML; Start 12/11/18 at 20:30 Diphenhydramine HCl (Benadryl) 25 mg Q6H PRN PO ITCHING Last administered on 12/13/18at 02:33; Admin Dose 25 MG; Start 12/13/18 at 02:22 Polyethylene Glycol (Miralax) 17 gm DAILY PO Last administered on 12/14/18at 08:14; Admin Dose 17 GM; Start 12/14/18 at 09:00 MICHELLE COLEMAN MD Dec 14, 2018 09:01
[2018-12-14] MEDS: ALBUTEROL/IPRATROPIUM (NEB) 3 ML AMP HHN SCH ×3 (09:19→22:41)
--- NOTE | 2018-12-14 09:34 | CONS ---
[facility] HCIS Consult Follow-up Patient Name: Rupinder Simon Unit Number: [id number] Date of : 1930 Patient Status: Admitted Inpatient Attending Doctor: Jaylen Olivier MD Edit: RICHARD ZUNIGA M.D. on 12/16/18 @ 02:56 Nadia: I discussed the management with RECOVERY COACH Val and agree with her Date/Time of Note Date/Time of Note DATE: 12/14/18 TIME: 09:19 Assessment/Plan Assessment/Plan Hospital Course Assessment/Impression: - s/p leukocytosis on 12/05/2018 may reflect receipt of pRBC x2 units - s/p leukocytosis likely due to steroid margination 11/25/2018-12/01/2018 - s/p severe sepsis with septic shock due to UTI +/- bacteremia; s/p Dopamine - s/p UTI due to klebsiella and proteus - treated with ceftriaxone (11/25/2018- 11/29/2018) - s/p bacteremia 1/2 sets from 11/25/2018 due to coag negative Staph, likely contaminant - s/p SIRS due to acute hypoxic resp failure and acute on chronic renal failure - acute hypoxic resp failure, probably due to CHF exacerbation +/- aspiration pneumonia/pneumonitis, off bipap - acute on chronic diastolic CHF, improved after HD - s/p tachycardia c/w AF/AFL with RVR - now in sinus - s/p bradycardia to 40's, now SR - acute on chronic renal failure, started on HD on 11/26/2018 - s/p R IJ permacath placement 12/08/2018 - acute on chronic anemia requiring PRBC - s/p upper GIB - gastritis, duodenitis, esophagitis and moderate size hiatal hernia per EGD with biopsy on 12/07/2018; Path +fungal yeast in esophagus - esophageal candidiasis - on Fluconazole and po nystatin - external hemorrhoids, mild to moderate diverticulosis per Colonoscopy and polypectomy 12/07/2018; Path negative for dysplasia or malignancy - intertrigo in groin area - underlying COPD - CAD - hypothyroidism - TSH elevated and FT4 depressed - gout - eschar of L 4th toe, probably ischemic eschar/ischemia - acute encephalopathy due to sepsis, improving - note: Pt completed cefepime (11/30/2018-12/02/2018) and ceftriaxone (11/25/2018- 11/29/2018) Recommendations: - Continue fluconazole (12/09/2018-, switched to PO on 12/12/2018) and PO nystatin for oral candidiasis - Continue nystatin powder (12/10/2018-) for intertrigo of b/l groin Management d/w patient and with Dr. Zuniga. Thank you . Result Diagram: 12/14/18 0506 12/14/18 0506 Results 24hrs Laboratory Tests Test 12/14/18 05:06 White Blood Count 6.1 Red Blood Count 2.77 L Hemoglobin 8.2 L Hematocrit 25.9 L Mean Corpuscular Volume 93.5 Mean Corpuscular Hemoglobin 29.6 Mean Corpuscular Hemoglobin Concent 31.7 L Red Cell Distribution Width 16.3 H Platelet Count 224 # Mean Platelet Volume 9.4 Immature Granulocytes % 1.300 H Neutrophils % 61.7 Lymphocytes % 22.4 Monocytes % 10.5 Eosinophils % 3.4 Basophils % 0.7 Nucleated Red Blood Cells % 0.0 Immature Granulocytes # 0.080 H Neutrophils # 3.8 Lymphocytes # 1.4 Monocytes # 0.6 Eosinophils # 0.2 Basophils # 0.0 Nucleated Red Blood Cells # 0.0 Sodium Level 137 Potassium Level 4.4 Chloride Level 99 Carbon Dioxide Level 28 Anion Gap 10 Blood Urea Nitrogen 38 H Creatinine 4.06 H Est Glomerular Filtrat Rate mL/min Glucose Level 112 Calcium Level 9.1 Total Bilirubin 0.2 Direct Bilirubin 0.00 Indirect Bilirubin 0.2 Aspartate Amino Transf (AST/SGOT) 22 Alanine Aminotransferase (ALT/SGPT) 18 Alkaline Phosphatase 92 Total Protein 6.2 Albumin 3.4 Globulin 2.80 Albumin/Globulin Ratio 1.21 Vitamin B12 Level > 1000 H Consultation Date/Type/Reason Admit Date/Time Nov 26, 2018 at 11:28 Initial Consult Date 11/27/18 Type of Consult ID Requesting Provider: KATIE MENDEZ 24 HR Interval Summary Free Text/Dictation Patient remains afebrile with no acute issues reported by nsg. Patient is receiving a breathing treatment by RT now. Patient denied all ROS. Exam/Review of Systems Vital Signs Vitals Vital Signs Date Temp Pulse Resp B/P (MAP) Pulse Ox O2 O2 Flow FiO2 Time Delivery Rate 12/14/18 98.0 71 18 119/59 97 Room Air 07:27 (79) 12/13/18 21 19:35 12/12/18 23:30 Intake and Output 12/13/18 12/13/18 12/14/18 1515:00 23:00 07:00 IntakeIntake Total 400 ml 300 ml OutputOutput Total 100 ml 175 ml BalanceBalance 300 ml 125 ml Exam Constitutional: alert, oriented, well developed, frail, other (Receiving a breathing treatment now by RT.) Psych: no complaints, nl mood/affect Head: normocephalic, atraumatic Eyes: nl conjunctiva, nl lids, nl sclera ENMT: nl external ears & nose, nl nasal mucosa & septum, mucosa pink and moist, other (poor dentition ) Neck: supple, non-tender Respiratory: clear to auscultation, normal air movement (no wheezing; anteriorly.) Cardiovascular: regular rate and rhythm, nl pulses; No edema Gastrointestinal: soft, non-tender, bowel sounds (normoactive ) Musculoskeletal: nl extremities to inspection Extremities: normal pulses 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: nl mental status, nl speech, nl strength Skin: nl turgor; No rash or lesions Medications Medications Current Medications Albuterol/ Ipratropium (Duoneb) 3 ml Q6HWA RESP THERAPY HHN Last administered on 12/13/18at 19:34; Admin Dose 3 ML; Start 11/26/18 at 08:00 Acetaminophen (Tylenol Tab) 500 mg Q6H PRN PO MILD PAIN(1-3)OR ELEVATED TEMP Last administered on 12/10/18at 20:39; Admin Dose 500 MG; Start 11/25/18 at 22:30 Albumin Human 50 ml @ 100 mls/hr WITH DIALYSIS PRN IV SBP lower than 90 mm Hg Last administered on 12/12/18at 22:30; Admin Dose 100 MLS/HR; Start 11/26/18 at 14:00 Sodium Chloride (NS) -To prime the dialy... DIRECTED FOR HD PRN IV SBP lower than 90 mm Hg ; Start 11/26/18 at 14:00 IV Flush (NS 10 ml) 10 ml PRN PRN IV IV PROTOCOL; Start 11/26/18 at 14:30 Hydralazine HCl (Apresoline) 20 mg Q6H PRN IV SBP > 160 Last administered on 11/29/18at 12:33; Admin Dose 20 MG; Start 11/28/18 at 07:00 Albuterol/ Ipratropium (Duoneb) 3 ml Q4H RESP THERAPY PRN HHN SHORTNESS OF BREATH Last administered on 12/02/18at 03:49; Admin Dose 3 ML; Start 11/29/18 at 01:00 Metoprolol Tartrate (Lopressor) 25 mg BID PO Last administered on 12/13/18at 20:55; Admin Dose 25 MG; Start 11/30/18 at 21:00 Metoprolol Tartrate (Lopressor) 5 mg Q4H PRN IV HR>110 Hold SBP<100; Start 11/30/18 at 12:30 Haloperidol (Haldol) 2 mg Q6H PRN IV hallucinations Last administered on 12/02/18at 03:21; Admin Dose 2 MG; Start 12/01/18 at 19:30 Nifedipine (Procardia Xl) 30 mg DAILY PO Last administered on 12/12/18at 08:31; Admin Dose 30 MG; Start 12/07/18 at 09:00 Levothyroxine Sodium (Synthroid) 150 mcg DAILY@06 PO Last administered on 12/14/18at 05:49; Admin Dose 150 MCG; Start 12/08/18 at 06:00 Heparin Sodium (Porcine) (Heparin (1000 Units/ml)) 3,700 unit AFTER DIALYSIS CATHETER Last administered on 12/12/18at 23:58; Admin Dose 3,700 UNIT; Start 12/08/18 at 16:00 Nystatin (Nystatin Susp) 5 ml QID PO Last administered on 12/14/18at 08:14; Admin Dose 5 ML; Start 12/09/18 at 13:00 Pantoprazole (Protonix Tab) 40 mg DAILY@0600 PO Last administered on 12/14/18at 05:49; Admin Dose 40 MG; Start 12/10/18 at 06:00 Gabapentin (Neurontin) 300 mg QHS PO Last administered on 12/13/18at 20:54; Admin Dose 300 MG; Start 12/09/18 at 21:00 Miscellaneous Information (*Order Clarification Bulletin) MEDICATION REQUIRES CLARIFICATION: Q8H XX ; Start 12/10/18 at 11:00 Nystatin (Nystatin Powder) 1 applic BID TOP Last administered on 12/14/18 08:14; Admin Dose 1 APPLIC; Start 12/10/18 at 21:00 Fluconazole (Diflucan) 100 mg DAILY PO Last administered on 12/14/18at 08:14; Admin Dose 100 MG; Start 12/12/18 at 09:00 Promethazine HCl/ Codeine (Phenergan/ Codeine) 10 ml Q6 PRN PO COUGH Last administered on 12/12/18at 08:34; Admin Dose 10 ML; Start 12/11/18 at 20:30 Diphenhydramine HCl (Benadryl) 25 mg Q6H PRN PO ITCHING Last administered on 12/13/18at 02:33; Admin Dose 25 MG; Start 12/13/18 at 02:22 Polyethylene Glycol (Miralax) 17 gm DAILY PO Last administered on 12/14/18at 08:14; Admin Dose 17 GM; Start 12/14/18 at 09:00 PRINCE SMITH NP Dec 14, 2018 09:30
--- NOTE | 2018-12-14 12:01 | CONS ---
Date/Time of Note Date/Time of Note DATE: 12/14/18 TIME: 12:01 Assessment/Plan Assessment/Plan Assessment/Plan 1. Oliguric Acute kindey injury on CKD III due to ATN from septic shock, 2. Acute uremic encephalopathy 3. Acute hyperkalemia- resolved 4. Severe metabolic acidosis 5. Septic shock on pressors 2/2 UTI and bacteremia 6. acute hypoxemic respiraotry failure on BIPAP 7. acute on chronic,systolic and diastolic heart failure 8. H/o HTN 9. H/o COPD 10. Acute GI bleeding s/p 3 U PRBC , s/p EGD and Colonoscopy Plan: started on HD on 11/26/17- s/p Right chest permacath on 12/08/18- HD ordered for friday- then will keep pt on Fri, , Friday schedule Outpatient HD placement has been confirmed at [facility] [place], [place] HD center - Fri, friday at 4 pm IV abx as per PMD, renally dose all abx and monitor electrolytes, Hb 8.2- Epogen for anemia of ESRD will follow up Result Diagram: 12/14/18 0506 12/14/18 0506 Results 24hrs Laboratory Tests Test 12/14/18 05:06 White Blood Count 6.1 Red Blood Count 2.77 L Hemoglobin 8.2 L Hematocrit 25.9 L Mean Corpuscular Volume 93.5 Mean Corpuscular Hemoglobin 29.6 Mean Corpuscular Hemoglobin Concent 31.7 L Red Cell Distribution Width 16.3 H Platelet Count 224 # Mean Platelet Volume 9.4 Immature Granulocytes % 1.300 H Neutrophils % 61.7 Lymphocytes % 22.4 Monocytes % 10.5 Eosinophils % 3.4 Basophils % 0.7 Nucleated Red Blood Cells % 0.0 Immature Granulocytes # 0.080 H Neutrophils # 3.8 Lymphocytes # 1.4 Monocytes # 0.6 Eosinophils # 0.2 Basophils # 0.0 Nucleated Red Blood Cells # 0.0 Sodium Level 137 Potassium Level 4.4 Chloride Level 99 Carbon Dioxide Level 28 Anion Gap 10 Blood Urea Nitrogen 38 H Creatinine 4.06 H Est Glomerular Filtrat Rate mL/min Glucose Level 112 Calcium Level 9.1 Total Bilirubin 0.2 Direct Bilirubin 0.00 Indirect Bilirubin 0.2 Aspartate Amino Transf (AST/SGOT) 22 Alanine Aminotransferase (ALT/SGPT) 18 Alkaline Phosphatase 92 Total Protein 6.2 Albumin 3.4 Globulin 2.80 Albumin/Globulin Ratio 1.21 Vitamin B12 Level > 1000 H Consultation Date/Type/Reason Admit Date/Time Nov 26, 2018 at 11:28 Initial Consult Date 11/26/18 Type of Consult NEPHROLOGY Requesting Provider: KATIE MENDEZ 24 HR Interval Summary Free Text/Dictation plan for tomorrow, afebrile, BP stable Exam/Review of Systems Vital Signs Vitals Vital Signs Date Temp Pulse Resp B/P (MAP) Pulse Ox O2 O2 Flow FiO2 Time Delivery Rate 12/14/18 80 20 95 21 09:20 12/14/18 98.0 119/59 Room Air 07:27 (79) 12/12/18 23:30 Intake and Output 12/13/18 12/13/18 12/14/18 1515:00 23:00 07:00 IntakeIntake Total 400 ml 300 ml OutputOutput Total 100 ml 175 ml BalanceBalance 300 ml 125 ml Exam Constitutional: alert, well developed Respiratory: diminished breath sounds (at bases bilaterlly), + right chest permacath Cardiovascular: nl pulses, other (s1s2) Gastrointestinal: soft, non-tender Musculoskeletal: muscle weakness Extremities: normal pulses 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: nl speech, other (alert/responsive) Medications Medications Current Medications Albuterol/ Ipratropium (Duoneb) 3 ml Q6HWA RESP THERAPY HHN Last administered on 12/14/18at 09:19; Admin Dose 3 ML; Start 11/26/18 at 08:00 Acetaminophen (Tylenol Tab) 500 mg Q6H PRN PO MILD PAIN(1-3)OR ELEVATED TEMP Last administered on 12/10/18at 20:39; Admin Dose 500 MG; Start 11/25/18 at 22:30 Albumin Human 50 ml @ 100 mls/hr WITH DIALYSIS PRN IV SBP lower than 90 mm Hg Last administered on 12/12/18at 22:30; Admin Dose 100 MLS/HR; Start 11/26/18 at 14:00 Sodium Chloride (NS) -To prime the dialy... DIRECTED FOR HD PRN IV SBP lower than 90 mm Hg ; Start 11/26/18 at 14:00 IV Flush (NS 10 ml) 10 ml PRN PRN IV IV PROTOCOL; Start 11/26/18 at 14:30 Hydralazine HCl (Apresoline) 20 mg Q6H PRN IV SBP > 160 Last administered on 11/29/18 12:33; Admin Dose 20 MG; Start 11/28/18 at 07:00 Albuterol/ Ipratropium (Duoneb) 3 ml Q4H RESP THERAPY PRN HHN SHORTNESS OF BREATH Last administered on 12/02/18 03:49; Admin Dose 3 ML; Start 11/29/18 at 01:00 Metoprolol Tartrate (Lopressor) 25 mg BID PO Last administered on 12/13/18 20:55; Admin Dose 25 MG; Start 11/30/18 at 21:00 Metoprolol Tartrate (Lopressor) 5 mg Q4H PRN IV HR>110 Hold SBP<100; Start 11/30/18 at 12:30 Haloperidol (Haldol) 2 mg Q6H PRN IV hallucinations Last administered on 12/02/18 03:21; Admin Dose 2 MG; Start 12/01/18 at 19:30 Nifedipine (Procardia Xl) 30 mg DAILY PO Last administered on 12/12/18 08:31; Admin Dose 30 MG; Start 12/07/18 at 09:00 Levothyroxine Sodium (Synthroid) 150 mcg DAILY@06 PO Last administered on 12/14/18 05:49; Admin Dose 150 MCG; Start 12/08/18 at 06:00 Heparin Sodium (Porcine) (Heparin (1000 Units/ml)) 3,700 unit AFTER DIALYSIS CATHETER Last administered on 12/12/18 23:58; Admin Dose 3,700 UNIT; Start 12/08/18 at 16:00 Nystatin (Nystatin Susp) 5 ml QID PO Last administered on 12/14/18 08:14; Admin Dose 5 ML; Start 12/09/18 at 13:00 Pantoprazole (Protonix Tab) 40 mg DAILY@0600 PO Last administered on 12/14/18 05:49; Admin Dose 40 MG; Start 12/10/18 at 06:00 Gabapentin (Neurontin) 300 mg QHS PO Last administered on 12/13/18 20:54; Admin Dose 300 MG; Start 12/09/18 at 21:00 Miscellaneous Information (*Order Clarification Bulletin) MEDICATION REQUIRES CLARIFICATION: Q8H XX ; Start 12/10/18 at 11:00 Nystatin (Nystatin Powder) 1 applic BID TOP Last administered on 12/14/18at 08 :14; Admin Dose 1 APPLIC; Start 12/10/18 at 21:00 Fluconazole (Diflucan) 100 mg DAILY PO Last administered on 12/14/18at 08:14; Admin Dose 100 MG; Start 12/12/18 at 09:00 Promethazine HCl/ Codeine (Phenergan/ Codeine) 10 ml Q6 PRN PO COUGH Last administered on 12/12/18at 08:34; Admin Dose 10 ML; Start 12/11/18 at 20:30 Diphenhydramine HCl (Benadryl) 25 mg Q6H PRN PO ITCHING Last administered on at 02:33; Admin Dose 25 MG; Start 12/13/18 at 02:22 Polyethylene Glycol (Miralax) 17 gm DAILY PO Last administered on 12/14/18at 08:14; Admin Dose 17 GM; Start 12/14/18 at 09:00 GI HARTMAN MD Dec 14, 2018 12:01
--- NOTE | 2018-12-14 12:48 | PN ---
Date/Time of Note Date/Time of Note DATE: 12/14/18 TIME: 12:43 Assessment/Plan VTE [place] [facility] [place]: 9 [place] [facility] [place] Yes Pharmacological prophylaxis: NA/contraindicated, other Pharm contraindication: bleeding Lines/Catheters IV Catheter Type (from [facility]): Permacath Central line still needed: Yes Urinary Cath still in place: Yes Reason Cath still needed: urinary retention Assessment/Plan Hospital Course Patient is awake alert and oriented x3, tolerates diet without nausea patient had bowel movement, continue current bowel regimen. Patient's condition plan of care discussed with RN and case management. Assessment/Plan -Anemia secondary to GI bleed. Protonix IV. Heparin is stopped. Transfuse as needed. -Status post EGD with notion of erosive gastritis and moderate duodenitis as well as hiatal hernia continue PPI. Status post colonoscopy with polypectomy and notion of moderate diverticulosis on 12/07/2018. Dr. Lewis is following in gastroenterology consultation. -Lissy esophagitis, continue nystatin swish and swallow. -Acute respiratory failure, resolved. Dr. Garcia is following in pulmonology consultation. -S/p sepsis secondary to UTI. Continue antibiotics per ID. Dr. Jordan is following in infection disease consultation. -S/p septic and cardiogenic shock -s/p Left lower lobe pneumonia -Acute on chronic systolic and diastolic congestive heart failure, improved with hemodialysis. Dr. Iraheta is following in cardiology consultation. -ARF on CKD. Patient started on hemodialysis during this admission. Continue hemodialysis per nephrology. Dr Hill is following in nephrology consultation. -Status post right chest permacath placement -Pulmonary edema -Hypothyroidism, continue Synthroid. -DNR status Further recommendations based on clinical course. Plan of care discussed with Dr. Olivier. Result Diagram: 12/14/18 0506 12/14/18 0506 Results 24hrs Laboratory Tests Test 12/14/18 05:06 White Blood Count 6.1 Red Blood Count 2.77 L Hemoglobin 8.2 L Hematocrit 25.9 L Mean Corpuscular Volume 93.5 Mean Corpuscular Hemoglobin 29.6 Mean Corpuscular Hemoglobin Concent 31.7 L Red Cell Distribution Width 16.3 H Platelet Count 224 # Mean Platelet Volume 9.4 Immature Granulocytes % 1.300 H Neutrophils % 61.7 Lymphocytes % 22.4 Monocytes % 10.5 Eosinophils % 3.4 Basophils % 0.7 Nucleated Red Blood Cells % 0.0 Immature Granulocytes # 0.080 H Neutrophils # 3.8 Lymphocytes # 1.4 Monocytes # 0.6 Eosinophils # 0.2 Basophils # 0.0 Nucleated Red Blood Cells # 0.0 Sodium Level 137 Potassium Level 4.4 Chloride Level 99 Carbon Dioxide Level 28 Anion Gap 10 Blood Urea Nitrogen 38 H Creatinine 4.06 H Est Glomerular Filtrat Rate mL/min Glucose Level 112 Calcium Level 9.1 Total Bilirubin 0.2 Direct Bilirubin 0.00 Indirect Bilirubin 0.2 Aspartate Amino Transf (AST/SGOT) 22 Alanine Aminotransferase (ALT/SGPT) 18 Alkaline Phosphatase 92 Total Protein 6.2 Albumin 3.4 Globulin 2.80 Albumin/Globulin Ratio 1.21 Vitamin B12 Level > 1000 H Exam/Review of Systems Vital Signs Vitals Vital Signs Date Temp Pulse Resp B/P (MAP) Pulse Ox O2 O2 Flow FiO2 Time Delivery Rate 12/14/18 98.0 78 18 141/67 100 Room Air 11:20 (91) 12/14/18 21 09:20 12/12/18 23:30 Intake and Output 12/13/18 12/13/18 12/14/18 1414:59 22:59 06:59 IntakeIntake Total 400 ml 300 ml OutputOutput Total 100 ml 175 ml BalanceBalance 300 ml 125 ml Exam Constitutional: frail, generalized edema Neck: supple Respiratory: diminished breath sounds Cardiovascular: Irregular rhythm Gastrointestinal: soft, non-tender Extremities: normal pulses, edema 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: confused Right chest permacath Medications Medications Current Medications Albuterol/ Ipratropium (Duoneb) 3 ml Q6HWA RESP THERAPY HHN Last administered on 12/14/18at 09:19; Admin Dose 3 ML; Start 11/26/18 at 08:00 Acetaminophen (Tylenol Tab) 500 mg Q6H PRN PO MILD PAIN(1-3)OR ELEVATED TEMP Last administered on 12/10/18at 20:39; Admin Dose 500 MG; Start 11/25/18 at 22:30 Albumin Human 50 ml @ 100 mls/hr WITH DIALYSIS PRN IV SBP lower than 90 mm Hg Last administered on 12/12/18at 22:30; Admin Dose 100 MLS/HR; Start 11/26/18 at 14:00 Sodium Chloride (NS) -To prime the dialy... DIRECTED FOR HD PRN IV SBP lower than 90 mm Hg ; Start 11/26/18 at 14:00 IV Flush (NS 10 ml) 10 ml PRN PRN IV IV PROTOCOL; Start 11/26/18 at 14:30 Hydralazine HCl (Apresoline) 20 mg Q6H PRN IV SBP > 160 Last administered on 11/29/18at 12:33; Admin Dose 20 MG; Start 11/28/18 at 07:00 Albuterol/ Ipratropium (Duoneb) 3 ml Q4H RESP THERAPY PRN HHN SHORTNESS OF BREATH Last administered on 12/02/18at 03:49; Admin Dose 3 ML; Start 11/29/18 at 01:00 Metoprolol Tartrate (Lopressor) 25 mg BID PO Last administered on 12/13/18at 20:55; Admin Dose 25 MG; Start 11/30/18 at 21:00 Metoprolol Tartrate (Lopressor) 5 mg Q4H PRN IV HR>110 Hold SBP<100; Start 11/30/18 at 12:30 Haloperidol (Haldol) 2 mg Q6H PRN IV hallucinations Last administered on 12/02/18at 03:21; Admin Dose 2 MG; Start 12/01/18 at 19:30 Nifedipine (Procardia Xl) 30 mg DAILY PO Last administered on 12/12/18at 08:31; Admin Dose 30 MG; Start 12/07/18 at 09:00 Levothyroxine Sodium (Synthroid) 150 mcg DAILY@06 PO Last administered on 12/14/18at 05:49; Admin Dose 150 MCG; Start 12/08/18 at 06:00 Heparin Sodium (Porcine) (Heparin (1000 Units/ml)) 3,700 unit AFTER DIALYSIS CATHETER Last administered on 12/12/18at 23:58; Admin Dose 3,700 UNIT; Start 12/08/18 at 16:00 Nystatin (Nystatin Susp) 5 ml QID PO Last administered on 12/14/18at 08:14; Admin Dose 5 ML; Start 12/09/18 at 13:00 Pantoprazole (Protonix Tab) 40 mg DAILY@0600 PO Last administered on 12/14/18at 05:49; Admin Dose 40 MG; Start 12/10/18 at 06:00 Gabapentin (Neurontin) 300 mg QHS PO Last administered on 12/13/18at 20:54; Admin Dose 300 MG; Start 12/09/18 at 21:00 Miscellaneous Information (*Order Clarification Bulletin) MEDICATION REQUIRES CLARIFICATION: Q8H XX ; Start 12/10/18 at 11:00 Nystatin (Nystatin Powder) 1 applic BID TOP Last administered on 12/14/18at 08:14; Admin Dose 1 APPLIC; Start 12/10/18 at 21:00 Fluconazole (Diflucan) 100 mg DAILY PO Last administered on 12/14/18at 08:14; Admin Dose 100 MG; Start 12/12/18 at 09:00 Promethazine HCl/ Codeine (Phenergan/ Codeine) 10 ml Q6 PRN PO COUGH Last administered on 12/12/18at 08:34; Admin Dose 10 ML; Start 12/11/18 at 20:30 Diphenhydramine HCl (Benadryl) 25 mg Q6H PRN PO ITCHING Last administered on 12/13/18at 02:33; Admin Dose 25 MG; Start 12/13/18 at 02:22 Polyethylene Glycol (Miralax) 17 gm DAILY PO Last administered on 12/14/18at 08:14; Admin Dose 17 GM; Start 12/14/18 at 09:00 EDWAR VARGAS Dec 14, 2018 12:48
[2018-12-14] MEDS: GABAPENTIN 300 MG CAP PO SCH (20:36)
[2018-12-15] VITALS (26 sets, daily range): BP systolic 100–149; BP diastolic 51–68; PULSE 62–85; RESP 18–20
[2018-12-15] MEDS: PANTOPRAZOLE (EC) 40 MG TAB PO SCH (05:02)
[2018-12-15] MEDS: LEVOTHYROXINE 150 MCG TAB PO SCH (05:02)
[2018-12-15] MEDS: ALBUTEROL/IPRATROPIUM (NEB) 3 ML AMP HHN SCH ×3 (08:24→20:08)
[2018-12-15] MEDS: NIFEdipine (XL) 30 MG TAB PO SCH (09:00)
[2018-12-15] MEDS: METOPROLOL 25 MG TAB PO SCH ×2 (09:00→21:09)
[2018-12-15] MEDS: FLUCONAZOLE 100 MG TAB PO SCH (09:21)
[2018-12-15] MEDS: POLYETHYLENE GLYCOL 17 GM PACKET PO SCH (09:22)
[2018-12-15] MEDS: NYSTATIN SUSP 5 ML CUP PO SCH ×4 (09:22→21:09)
[2018-12-15] MEDS: NYSTATIN 30 GM POWDER BTL TOP SCH ×2 (09:26→21:09)
--- NOTE | 2018-12-15 10:51 | CONS ---
Date/Time of Note Date/Time of Note DATE: 12/15/18 TIME: 10:49 Assessment/Plan Assessment/Plan Hospital Course - s/p leukocytosis on 12/05/2018 may reflect receipt of pRBC x2 units - s/p leukocytosis likely due to steroid margination 11/25/2018-12/01/2018 - s/p severe sepsis with septic shock due to UTI +/- bacteremia; s/p Dopamine - s/p UTI due to klebsiella and proteus - treated with ceftriaxone (11/25/2018- 11/29/2018) - s/p bacteremia 1/2 sets from 11/25/2018 due to coag negative Staph, likely contaminant - s/p SIRS due to acute hypoxic resp failure and acute on chronic renal failure - acute hypoxic resp failure, probably due to CHF exacerbation +/- aspiration pneumonia/pneumonitis, off bipap - acute on chronic diastolic CHF, improved after HD - s/p tachycardia c/w AF/AFL with RVR - now in sinus - s/p bradycardia to 40's, now SR - acute on chronic renal failure, started on HD on 11/26/2018 - s/p R IJ permacath placement 12/08/2018 - acute on chronic anemia requiring PRBC - s/p upper GIB - gastritis, duodenitis, esophagitis and moderate size hiatal hernia per EGD with biopsy on 12/07/2018; Path +fungal yeast in esophagus - esophageal candidiasis - on Fluconazole and po nystatin - external hemorrhoids, mild to moderate diverticulosis per Colonoscopy and polypectomy 12/07/2018; Path negative for dysplasia or malignancy - intertrigo in groin area - underlying COPD - CAD - hypothyroidism - TSH elevated and FT4 depressed - gout - eschar of L 4th toe, probably ischemic eschar/ischemia - acute encephalopathy due to sepsis, improving - note: Pt completed cefepime (11/30/2018-12/02/2018) and ceftriaxone (11/25/2018-11/29/2018) Recommendations: - Continue fluconazole (12/09/2018-, switched to PO on 12/12/2018) and PO nystatin for oral candidiasis - Continue nystatin powder (12/10/2018-) for intertrigo of b/l groin Result Diagram: 12/15/18 0504 12/15/18 0504 Results 24hrs Laboratory Tests Test 12/15/18 05:04 White Blood Count 5.8 Red Blood Count 2.80 L Hemoglobin 8.2 L Hematocrit 26.1 L Mean Corpuscular Volume 93.2 Mean Corpuscular Hemoglobin 29.3 Mean Corpuscular Hemoglobin Concent 31.4 L Red Cell Distribution Width 16.0 H Platelet Count 253 Mean Platelet Volume 9.5 Immature Granulocytes % 1.200 H Neutrophils % 57.0 Lymphocytes % 25.9 Monocytes % 11.2 H Eosinophils % 3.8 Basophils % 0.9 Nucleated Red Blood Cells % 0.0 Immature Granulocytes # 0.070 H Neutrophils # 3.3 Lymphocytes # 1.5 Monocytes # 0.7 Eosinophils # 0.2 Basophils # 0.1 Nucleated Red Blood Cells # 0.0 Sodium Level 137 Potassium Level 4.9 Chloride Level 102 Carbon Dioxide Level 25 Anion Gap 10 Blood Urea Nitrogen 52 H Creatinine 4.98 H Est Glomerular Filtrat Rate mL/min Glucose Level 100 Calcium Level 9.3 Consultation Date/Type/Reason Admit Date/Time Nov 26, 2018 at 11:28 Initial Consult Date 11/27/18 Requesting Provider: KATIE MENDEZ Exam/Review of Systems Vital Signs Vitals Vital Signs Date Temp Pulse Resp B/P (MAP) Pulse Ox O2 O2 Flow FiO2 Time Delivery Rate 12/15/18 72 24 98 21 08:25 12/15/18 98.0 133/60 Room Air 07:25 (84) 12/12/18 23:30 Intake and Output 12/14/18 12/14/18 12/15/18 1515:00 23:00 07:00 IntakeIntake Total 800 ml 700 ml OutputOutput Total 120 ml BalanceBalance 680 ml 700 ml Exam Constitutional: alert, oriented Head: normocephalic, atraumatic Eyes: EOMI Neck: supple Respiratory: clear to auscultation Cardiovascular: regular rate and rhythm Gastrointestinal: soft Medications Medications Current Medications Albuterol/ Ipratropium (Duoneb) 3 ml Q6HWA RESP THERAPY HHN Last administered on 12/15/18at 08:24; Admin Dose 3 ML; Start 11/26/18 at 08:00 Acetaminophen (Tylenol Tab) 500 mg Q6H PRN PO MILD PAIN(1-3)OR ELEVATED TEMP Last administered on 12/10/18at 20:39; Admin Dose 500 MG; Start 11/25/18 at 22:30 Albumin Human 50 ml @ 100 mls/hr WITH DIALYSIS PRN IV SBP lower than 90 mm Hg Last administered on 12/12/18at 22:30; Admin Dose 100 MLS/HR; Start 11/26/18 at 14:00 Sodium Chloride (NS) -To prime the dialy... DIRECTED FOR HD PRN IV SBP lower than 90 mm Hg ; Start 11/26/18 at 14:00 IV Flush (NS 10 ml) 10 ml PRN PRN IV IV PROTOCOL; Start 11/26/18 at 14:30 Hydralazine HCl (Apresoline) 20 mg Q6H PRN IV SBP > 160 Last administered on 11/29/18at 12:33; Admin Dose 20 MG; Start 11/28/18 at 07:00 Albuterol/ Ipratropium (Duoneb) 3 ml Q4H RESP THERAPY PRN HHN SHORTNESS OF BREATH Last administered on 12/02/18at 03:49; Admin Dose 3 ML; Start 11/29/18 at 01:00 Metoprolol Tartrate (Lopressor) 25 mg BID PO Last administered on 12/14/18at 20:37; Admin Dose 25 MG; Start 11/30/18 at 21:00 Metoprolol Tartrate (Lopressor) 5 mg Q4H PRN IV HR>110 Hold SBP<100; Start 11/30/18 at 12:30 Haloperidol (Haldol) 2 mg Q6H PRN IV hallucinations Last administered on 12/02/18at 03:21; Admin Dose 2 MG; Start 12/01/18 at 19:30 Nifedipine (Procardia Xl) 30 mg DAILY PO Last administered on 12/12/18at 08:31; Admin Dose 30 MG; Start 12/07/18 at 09:00 Levothyroxine Sodium (Synthroid) 150 mcg DAILY@06 PO Last administered on 12/15/18at 05:02; Admin Dose 150 MCG; Start 12/08/18 at 06:00 Heparin Sodium (Porcine) (Heparin (1000 Units/ml)) 3,700 unit AFTER DIALYSIS CATHETER Last administered on 12/12/18at 23:58; Admin Dose 3,700 UNIT; Start 12/08/18 at 16:00 Nystatin (Nystatin Susp) 5 ml QID PO Last administered on 12/15/18 09:22; Admin Dose 5 ML; Start 12/09/18 at 13:00 Pantoprazole (Protonix Tab) 40 mg DAILY@0600 PO Last administered on 12/15/18 05:02; Admin Dose 40 MG; Start 12/10/18 at 06:00 Gabapentin (Neurontin) 300 mg QHS PO Last administered on 12/14/18 20:36; Admin Dose 300 MG; Start 12/09/18 at 21:00 Miscellaneous Information (*Order Clarification Bulletin) MEDICATION REQUIRES CLARIFICATION: Q8H XX ; Start 12/10/18 at 11:00 Nystatin (Nystatin Powder) 1 applic BID TOP Last administered on 12/15/18 09:26; Admin Dose 1 APPLIC; Start 12/10/18 at 21:00 Fluconazole (Diflucan) 100 mg DAILY PO Last administered on 12/15/18 09:21; Admin Dose 100 MG; Start 12/12/18 at 09:00 Promethazine HCl/ Codeine (Phenergan/ Codeine) 10 ml Q6 PRN PO COUGH Last administered on 12/12/18 08:34; Admin Dose 10 ML; Start 12/11/18 at 20:30 Diphenhydramine HCl (Benadryl) 25 mg Q6H PRN PO ITCHING Last administered on 12/13/18 02:33; Admin Dose 25 MG; Start 12/13/18 at 02:22 Polyethylene Glycol (Miralax) 17 gm DAILY PO Last administered on 12/15/18 09:22; Admin Dose 17 GM; Start 12/14/18 at 09:00 ZAIRE CORDOVA MD Dec 15, 2018 10:51
--- NOTE | 2018-12-15 11:45 | CONS ---
Date/Time of Note Date/Time of Note DATE: 12/15/18 TIME: 11:43 Assessment/Plan Assessment/Plan Assessment/Plan 1. Hypotention - NL EF by most recent echo September 2018 of 60% to 65%.- improved off dopamine and tolerating BP medications - much better now - BP stable. Better now. 2. Abnormal echocardiogram, assess for acute coronary syndrome- r/o NV, no intervention planned. 3. Congestive heart failure, diastolic, acute on chronic, in the setting of renal failure. Remove fluid with HD. Con't to optimize therpy now. 4. Renal failure - HD per renal team. RX as needed. 5. Anemia-requiring transfusions- H/H stable currently. 6. Hyponatremia-improved 7. Urinary tract infection - on anti-Bx, treated. 8. Tachycardia-c/w AF/AFL with RVR - rate controlled now. Anti-coag reviewed. 9. Bradycardia- to 40's when converts to SR - no indication for pacer now. 10. Esophagitis-by endoscopy celeste Result Diagram: 12/15/18 0504 12/15/18 0504 Results 24hrs Laboratory Tests Test 12/15/18 05:04 White Blood Count 5.8 Red Blood Count 2.80 L Hemoglobin 8.2 L Hematocrit 26.1 L Mean Corpuscular Volume 93.2 Mean Corpuscular Hemoglobin 29.3 Mean Corpuscular Hemoglobin Concent 31.4 L Red Cell Distribution Width 16.0 H Platelet Count 253 Mean Platelet Volume 9.5 Immature Granulocytes % 1.200 H Neutrophils % 57.0 Lymphocytes % 25.9 Monocytes % 11.2 H Eosinophils % 3.8 Basophils % 0.9 Nucleated Red Blood Cells % 0.0 Immature Granulocytes # 0.070 H Neutrophils # 3.3 Lymphocytes # 1.5 Monocytes # 0.7 Eosinophils # 0.2 Basophils # 0.1 Nucleated Red Blood Cells # 0.0 Sodium Level 137 Potassium Level 4.9 Chloride Level 102 Carbon Dioxide Level 25 Anion Gap 10 Blood Urea Nitrogen 52 H Creatinine 4.98 H Est Glomerular Filtrat Rate mL/min Glucose Level 100 Calcium Level 9.3 Consultation Date/Type/Reason Admit Date/Time Nov 26, 2018 at 11:28 Initial Consult Date 11/27/18 Requesting Provider: KATIE MENDEZ 24 HR Interval Summary Free Text/Dictation NO acute events - H/H keeps trending on low side - HD as needed to remove fluid. ROS: No fever, no chills, no nausea, no vomiting, no diarrhea/constipation No recent weight changes No chest pain, no PND, no orthopnea - stable SOB. No dizziness, blurred vision No thirst, no heat or cold intolerance Exam/Review of Systems Vital Signs Vitals Vital Signs Date Temp Pulse Resp B/P (MAP) Pulse Ox O2 O2 Flow FiO2 Time Delivery Rate 12/15/18 72 24 98 21 08:25 12/15/18 98.0 133/60 Room Air 07:25 (84) 12/12/18 23:30 Intake and Output 12/14/18 12/14/18 12/15/18 1414:59 22:59 06:59 IntakeIntake Total 800 ml 700 ml OutputOutput Total 120 ml BalanceBalance 680 ml 700 ml Exam General: WN/WD/NAD, AOx 2-3 HEENT: Unicetric/atraumatic/EOMI (follows commands) NECK: JVD elevated, no thyromegaly Lymph: no lymphadenopathy HEART: regular with no S3, II/ systolic murmur at apex, PMI L LUNGS: Coarse sounds ABD: soft, NT, ND, +BS : Intact Neuro: non focal SKIN: chronic changes EXT: trace edema Medications Medications Current Medications Albuterol/ Ipratropium (Duoneb) 3 ml Q6HWA RESP THERAPY HHN Last administered on 12/15/18at 08:24; Admin Dose 3 ML; Start 11/26/18 at 08:00 Acetaminophen (Tylenol Tab) 500 mg Q6H PRN PO MILD PAIN(1-3)OR ELEVATED TEMP Last administered on 12/10/18at 20:39; Admin Dose 500 MG; Start 11/25/18 at 22:30 Albumin Human 50 ml @ 100 mls/hr WITH DIALYSIS PRN IV SBP lower than 90 mm Hg Last administered on 12/12/18at 22:30; Admin Dose 100 MLS/HR; Start 11/26/18 at 14:00 Sodium Chloride (NS) -To prime the dialy... DIRECTED FOR HD PRN IV SBP lower than 90 mm Hg ; Start 11/26/18 at 14:00 IV Flush (NS 10 ml) 10 ml PRN PRN IV IV PROTOCOL; Start 11/26/18 at 14:30 Hydralazine HCl (Apresoline) 20 mg Q6H PRN IV SBP > 160 Last administered on 11/29/18 12:33; Admin Dose 20 MG; Start 11/28/18 at 07:00 Albuterol/ Ipratropium (Duoneb) 3 ml Q4H RESP THERAPY PRN HHN SHORTNESS OF BREATH Last administered on 12/02/18 03:49; Admin Dose 3 ML; Start 11/29/18 at 01:00 Metoprolol Tartrate (Lopressor) 25 mg BID PO Last administered on 12/14/18 20:37; Admin Dose 25 MG; Start 11/30/18 at 21:00 Metoprolol Tartrate (Lopressor) 5 mg Q4H PRN IV HR>110 Hold SBP<100; Start 11/30/18 at 12:30 Haloperidol (Haldol) 2 mg Q6H PRN IV hallucinations Last administered on 12/02/18 03:21; Admin Dose 2 MG; Start 12/01/18 at 19:30 Nifedipine (Procardia Xl) 30 mg DAILY PO Last administered on 12/12/18 08:31; Admin Dose 30 MG; Start 12/07/18 at 09:00 Levothyroxine Sodium (Synthroid) 150 mcg DAILY@06 PO Last administered on 12/15/18 05:02; Admin Dose 150 MCG; Start 12/08/18 at 06:00 Heparin Sodium (Porcine) (Heparin (1000 Units/ml)) 3,700 unit AFTER DIALYSIS CATHETER Last administered on 12/12/18 23:58; Admin Dose 3,700 UNIT; Start 12/08/18 at 16:00 Nystatin (Nystatin Susp) 5 ml QID PO Last administered on 12/15/18 09:22; Admin Dose 5 ML; Start 12/09/18 at 13:00 Pantoprazole (Protonix Tab) 40 mg DAILY@0600 PO Last administered on 12/15/18 05:02; Admin Dose 40 MG; Start 12/10/18 at 06:00 Gabapentin (Neurontin) 300 mg QHS PO Last administered on 12/14/18at 20:36; Admin Dose 300 MG; Start 12/09/18 at 21:00 Miscellaneous Information (*Order Clarification Bulletin) MEDICATION REQUIRES CLARIFICATION: Q8H XX ; Start 12/10/18 at 11:00 Nystatin (Nystatin Powder) 1 applic BID TOP Last administered on 12/15/18 09:26; Admin Dose 1 APPLIC; Start 12/10/18 at 21:00 Fluconazole (Diflucan) 100 mg DAILY PO Last administered on 12/15/18 09:21; Admin Dose 100 MG; Start 12/12/18 at 09:00 Promethazine HCl/ Codeine (Phenergan/ Codeine) 10 ml Q6 PRN PO COUGH Last administered on 12/12/18at 08:34; Admin Dose 10 ML; Start 12/11/18 at 20:30 Diphenhydramine HCl (Benadryl) 25 mg Q6H PRN PO ITCHING Last administered on 12/13/18at 02:33; Admin Dose 25 MG; Start 12/13/18 at 02:22 Polyethylene Glycol (Miralax) 17 gm DAILY PO Last administered on 12/15/18 09:22; Admin Dose 17 GM; Start 12/14/18 at 09:00 MICHELLE COLEMAN MD Dec 15, 2018 11:45
--- NOTE | 2018-12-15 11:59 | PN ---
Date/Time of Note Date/Time of Note DATE: 12/15/18 TIME: 11:56 Assessment/Plan VTE Prophylaxis Risk score (from Ns)>0 risk: 6 SCD applied (from Ns): Yes Pharmacological prophylaxis: NA/contraindicated Pharm contraindication: bleeding Lines/Catheters IV [facility]ter Type [facility]from [facility]): Permacath Urinary Cath still in place: Yes Reason Cath still needed: urinary retention Assessment/Plan Hospital Course Patient will undergo hemodialysis today patient remains hemodynamically stable, afebrile. If hemodialysis and senior living transportation from senior living to hemodialysis is arranged, patient can be discharged tomorrow. Assessment/Plan -Anemia secondary to GI bleed. Protonix IV. Heparin is stopped. Transfuse as needed. Patient was stable hemoglobin. -Status post EGD with notion of erosive gastritis and moderate duodenitis as well as hiatal hernia continue PPI. Status post colonoscopy with polypectomy and notion of moderate diverticulosis on 12/07/2018. Dr. Lewis is following in gastroenterology consultation. -Lissy esophagitis, continue nystatin swish and swallow. -Acute respiratory failure, resolved. Dr. Garcia is following in pulmonology consultation. -S/p sepsis secondary to UTI. Continue antibiotics per ID. Dr. Jordan is following in infection disease consultation. -S/p septic and cardiogenic shock -s/p Left lower lobe pneumonia -Acute on chronic systolic and diastolic congestive heart failure, improved with hemodialysis. Dr. Iraheta is following in cardiology consultation. -ARF on CKD. Patient started on hemodialysis during this admission. Continue hemodialysis per nephrology. Dr Hill is following in nephrology consultation. -Status post right chest permacath placement -Pulmonary edema -Hypothyroidism, continue Synthroid. -DNR status Further recommendations based on clinical course. Plan of care discussed with Dr. Olivier. Result Diagram: 12/15/18 0504 12/15/18 0504 Results 24hrs Laboratory Tests Test 12/15/18 05:04 White Blood Count 5.8 Red Blood Count 2.80 L Hemoglobin 8.2 L Hematocrit 26.1 L Mean Corpuscular Volume 93.2 Mean Corpuscular Hemoglobin 29.3 Mean Corpuscular Hemoglobin Concent 31.4 L Red Cell Distribution Width 16.0 H Platelet Count 253 Mean Platelet Volume 9.5 Immature Granulocytes % 1.200 H Neutrophils % 57.0 Lymphocytes % 25.9 Monocytes % 11.2 H Eosinophils % 3.8 Basophils % 0.9 Nucleated Red Blood Cells % 0.0 Immature Granulocytes # 0.070 H Neutrophils # 3.3 Lymphocytes # 1.5 Monocytes # 0.7 Eosinophils # 0.2 Basophils # 0.1 Nucleated Red Blood Cells # 0.0 Sodium Level 137 Potassium Level 4.9 Chloride Level 102 Carbon Dioxide Level 25 Anion Gap 10 Blood Urea Nitrogen 52 H Creatinine 4.98 H Est Glomerular Filtrat Rate mL/min Glucose Level 100 Calcium Level 9.3 Exam/Review of Systems Vital Signs Vitals Vital Signs Date Temp Pulse Resp B/P (MAP) Pulse Ox O2 O2 Flow FiO2 Time Delivery Rate 12/15/18 72 24 98 21 08:25 12/15/18 98.0 133/60 Room Air 07:25 (84) 12/12/18 23:30 Intake and Output 12/14/18 12/14/18 12/15/18 1515:00 23:00 07:00 IntakeIntake Total 800 ml 700 ml OutputOutput Total 120 ml BalanceBalance 680 ml 700 ml Exam Constitutional: awake,alert Neck: supple Respiratory: diminished breath sounds Cardiovascular: Regular rhythm Gastrointestinal: soft, non-tender Extremities: normal pulses, edema 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: confused Right chest permacath Medications Medications Current Medications Albuterol/ Ipratropium (Duoneb) 3 ml Q6HWA RESP THERAPY HHN Last administered on 12/15/18at 08:24; Admin Dose 3 ML; Start 11/26/18 at 08:00 Acetaminophen (Tylenol Tab) 500 mg Q6H PRN PO MILD PAIN(1-3)OR ELEVATED TEMP Last administered on 12/10/18at 20:39; Admin Dose 500 MG; Start 11/25/18 at 22:30 Albumin Human 50 ml @ 100 mls/hr WITH DIALYSIS PRN IV SBP lower than 90 mm Hg Last administered on 12/12/18at 22:30; Admin Dose 100 MLS/HR; Start 11/26/18 at 14:00 Sodium Chloride (NS) -To prime the dialy... DIRECTED FOR HD PRN IV SBP lower than 90 mm Hg ; Start 11/26/18 at 14:00 IV Flush (NS 10 ml) 10 ml PRN PRN IV IV PROTOCOL; Start 11/26/18 at 14:30 Hydralazine HCl (Apresoline) 20 mg Q6H PRN IV SBP > 160 Last administered on 11/29/18at 12:33; Admin Dose 20 MG; Start 11/28/18 at 07:00 Albuterol/ Ipratropium (Duoneb) 3 ml Q4H RESP THERAPY PRN HHN SHORTNESS OF BREATH Last administered on 12/02/18 03:49; Admin Dose 3 ML; Start 11/29/18 at 01:00 Metoprolol Tartrate (Lopressor) 25 mg BID PO Last administered on 12/14/18at 20:37; Admin Dose 25 MG; Start 11/30/18 at 21:00 Metoprolol Tartrate (Lopressor) 5 mg Q4H PRN IV HR>110 Hold SBP<100; Start 11/30/18 at 12:30 Haloperidol (Haldol) 2 mg Q6H PRN IV hallucinations Last administered on 12/02/18 03:21; Admin Dose 2 MG; Start 12/01/18 at 19:30 Nifedipine (Procardia Xl) 30 mg DAILY PO Last administered on 12/12/18at 08:31; Admin Dose 30 MG; Start 12/07/18 at 09:00 Levothyroxine Sodium (Synthroid) 150 mcg DAILY@06 PO Last administered on 12/15/18 05:02; Admin Dose 150 MCG; Start 12/08/18 at 06:00 Heparin Sodium (Porcine) (Heparin (1000 Units/ml)) 3,700 unit AFTER DIALYSIS CATHETER Last administered on 12/12/18at 23:58; Admin Dose 3,700 UNIT; Start 12/08/18 at 16:00 Nystatin (Nystatin Susp) 5 ml QID PO Last administered on 12/15/18at 09:22; Admin Dose 5 ML; Start 12/09/18 at 13:00 Pantoprazole (Protonix Tab) 40 mg DAILY@0600 PO Last administered on 12/15/18 05:02; Admin Dose 40 MG; Start 12/10/18 at 06:00 Gabapentin (Neurontin) 300 mg QHS PO Last administered on 12/14/18at 20:36; Admin Dose 300 MG; Start 12/09/18 at 21:00 Miscellaneous Information (*Order Clarification Bulletin) MEDICATION REQUIRES CLARIFICATION: Q8H XX ; Start 12/10/18 at 11:00 Nystatin (Nystatin Powder) 1 applic BID TOP Last administered on 12/15/18at 09:26; Admin Dose 1 APPLIC; Start 12/10/18 at 21:00 Fluconazole (Diflucan) 100 mg DAILY PO Last administered on 12/15/18at 09:21; Admin Dose 100 MG; Start 12/12/18 at 09:00 Promethazine HCl/ Codeine (Phenergan/ Codeine) 10 ml Q6 PRN PO COUGH Last administered on 12/12/18at 08:34; Admin Dose 10 ML; Start 12/11/18 at 20:30 Diphenhydramine HCl (Benadryl) 25 mg Q6H PRN PO ITCHING Last administered on 12/13/18at 02:33; Admin Dose 25 MG; Start 12/13/18 at 02:22 Polyethylene Glycol (Miralax) 17 gm DAILY PO Last administered on 12/15/18at 09:22; Admin Dose 17 GM; Start 12/14/18 at 09:00 EDWAR VARGAS Dec 15, 2018 11:59
--- NOTE | 2018-12-15 12:23 | CONS ---
Assessment/Plan Assessment/Plan Assessment/Plan 1. Oliguric Acute kindey injury on CKD III due to ATN from septic shock, 2. Acute uremic encephalopathy 3. Acute hyperkalemia- resolved 4. Severe metabolic acidosis 5. Septic shock on pressors 2/2 UTI and bacteremia 6. acute hypoxemic respiraotry failure on BIPAP 7. acute on chronic,systolic and diastolic heart failure 8. H/o HTN 9. H/o COPD 10. Acute GI bleeding s/p 3 U PRBC , s/p EGD and Colonoscopy Plan: started on HD on 11/26/17- s/p Right chest permacath on 12/08/18- s/p HD today 2 L removed, will keep pt on Fri, , Friday schedule [place] [facility] [place] [facility] [place] friday at 4 pm Hb 8.2- Epogen for anemia of ESRD will follow up Result Diagram: 12/15/18 0504 12/15/18 0504 Results 24hrs Laboratory Tests Test 12/15/18 05:04 White Blood Count 5.8 Red Blood Count 2.80 L Hemoglobin 8.2 L Hematocrit 26.1 L Mean Corpuscular Volume 93.2 Mean Corpuscular Hemoglobin 29.3 Mean Corpuscular Hemoglobin Concent 31.4 L Red Cell Distribution Width 16.0 H Platelet Count 253 Mean Platelet Volume 9.5 Immature Granulocytes % 1.200 H Neutrophils % 57.0 Lymphocytes % 25.9 Monocytes % 11.2 H Eosinophils % 3.8 Basophils % 0.9 Nucleated Red Blood Cells % 0.0 Immature Granulocytes # 0.070 H Neutrophils # 3.3 Lymphocytes # 1.5 Monocytes # 0.7 Eosinophils # 0.2 Basophils # 0.1 Nucleated Red Blood Cells # 0.0 Sodium Level 137 Potassium Level 4.9 Chloride Level 102 Carbon Dioxide Level 25 Anion Gap 10 Blood Urea Nitrogen 52 H Creatinine 4.98 H Est Glomerular Filtrat Rate mL/min Glucose Level 100 Calcium Level 9.3 Consultation Date/Type/Reason Admit Date/Time Nov 26, 2018 at 11:28 Initial Consult Date 11/26/18 Type of Consult NEPHROLOGY Requesting Provider: KATIE MENDEZ 24 HR Interval Summary Free Text/Dictation s/p HD today 2 L removed, afebrile, BP stable, no compalints , paln for d/c tomorrow to [facility] Exam/Review of Systems Vital Signs Vitals Vital Signs Date Temp Pulse Resp B/P (MAP) Pulse Ox O2 O2 Flow FiO2 Time Delivery Rate 12/15/18 97.8 79 18 135/61 98 Room Air 11:20 (85) 12/15/18 21 08:25 12/12/18 23:30 Intake and Output 12/14/18 12/14/18 12/15/18 1515:00 23:00 07:00 IntakeIntake Total 800 ml 700 ml OutputOutput Total 120 ml BalanceBalance 680 ml 700 ml Exam Constitutional: alert, well developed Respiratory: diminished breath sounds (at bases bilaterlly), + right chest permacath Cardiovascular: nl pulses, other (s1s2) Gastrointestinal: soft, non-tender Musculoskeletal: muscle weakness Extremities: normal pulses 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: nl speech, other (alert/responsive) Medications Medications Current Medications Albuterol/ Ipratropium (Duoneb) 3 ml Q6HWA RESP THERAPY HHN Last administered on 12/15/18at 08:24; Admin Dose 3 ML; Start 11/26/18 at 08:00 Acetaminophen (Tylenol Tab) 500 mg Q6H PRN PO MILD PAIN(1-3)OR ELEVATED TEMP Last administered on 12/10/18at 20:39; Admin Dose 500 MG; Start 11/25/18 at 22:30 Albumin Human 50 ml @ 100 mls/hr WITH DIALYSIS PRN IV SBP lower than 90 mm Hg Last administered on 12/12/18at 22:30; Admin Dose 100 MLS/HR; Start 11/26/18 at 14:00 Sodium Chloride (NS) -To prime the dialy... DIRECTED FOR HD PRN IV SBP lower than 90 mm Hg ; Start 11/26/18 at 14:00 IV Flush (NS 10 ml) 10 ml PRN PRN IV IV PROTOCOL; Start 11/26/18 at 14:30 Hydralazine HCl (Apresoline) 20 mg Q6H PRN IV SBP > 160 Last administered on 11/29/18at 12:33; Admin Dose 20 MG; Start 11/28/18 at 07:00 Albuterol/ Ipratropium (Duoneb) 3 ml Q4H RESP THERAPY PRN HHN SHORTNESS OF BREATH Last administered on 12/02/18 03:49; Admin Dose 3 ML; Start 11/29/18 at 01:00 Metoprolol Tartrate (Lopressor) 25 mg BID PO Last administered on 12/14/18 20:37; Admin Dose 25 MG; Start 11/30/18 at 21:00 Metoprolol Tartrate (Lopressor) 5 mg Q4H PRN IV HR>110 Hold SBP<100; Start 11/30/18 at 12:30 Haloperidol (Haldol) 2 mg Q6H PRN IV hallucinations Last administered on 12/02/18 03:21; Admin Dose 2 MG; Start 12/01/18 at 19:30 Nifedipine (Procardia Xl) 30 mg DAILY PO Last administered on 12/12/18 08:31; Admin Dose 30 MG; Start 12/07/18 at 09:00 Levothyroxine Sodium (Synthroid) 150 mcg DAILY@06 PO Last administered on 12/15/18 05:02; Admin Dose 150 MCG; Start 12/08/18 at 06:00 Heparin Sodium (Porcine) (Heparin (1000 Units/ml)) 3,700 unit AFTER DIALYSIS CATHETER Last administered on 12/12/18 23:58; Admin Dose 3,700 UNIT; Start 12/08/18 at 16:00 Nystatin (Nystatin Susp) 5 ml QID PO Last administered on 12/15/18 09:22; Admin Dose 5 ML; Start 12/09/18 at 13:00 Pantoprazole (Protonix Tab) 40 mg DAILY@0600 PO Last administered on 12/15/18 05:02; Admin Dose 40 MG; Start 12/10/18 at 06:00 Gabapentin (Neurontin) 300 mg QHS PO Last administered on 12/14/18 20:36; Admin Dose 300 MG; Start 12/09/18 at 21:00 Miscellaneous Information (*Order Clarification Bulletin) MEDICATION REQUIRES CLARIFICATION: Q8H XX ; Start 12/10/18 at 11:00 Nystatin (Nystatin Powder) 1 applic BID TOP Last administered on 12/15/18 09:26; Admin Dose 1 APPLIC; Start 12/10/18 at 21:00 Fluconazole (Diflucan) 100 mg DAILY PO Last administered on 12/15/18 09:21; Admin Dose 100 MG; Start 12/12/18 at 09:00 Promethazine HCl/ Codeine (Phenergan/ Codeine) 10 ml Q6 PRN PO COUGH Last administered on 12/12/18at 08:34; Admin Dose 10 ML; Start 12/11/18 at 20:30 Diphenhydramine HCl (Benadryl) 25 mg Q6H PRN PO ITCHING Last administered on 12/13/18at 02:33; Admin Dose 25 MG; Start 12/13/18 at 02:22 Polyethylene Glycol (Miralax) 17 gm DAILY PO Last administered on 12/15/18at 09:22; Admin Dose 17 GM; Start 12/14/18 at 09:00 Date/Time of Note Date/Time of Note DATE: 12/15/18 TIME: 12:23 GI HARTMAN MD Dec 15, 2018 12:23
--- NOTE | 2018-12-15 17:11 | CONS ---
Assessment/Plan Assessment/Plan Hospital Course celeste and erosive esophagitis on Diflucan nystatin and PPI no melena. hgb 82. rec: restart plavix complete 14days difluxan. ppi chronically Result Diagram: 12/15/18 0504 12/15/18 0504 Results 24hrs Laboratory Tests Test 12/15/18 05:04 White Blood Count 5.8 Red Blood Count 2.80 L Hemoglobin 8.2 L Hematocrit 26.1 L Mean Corpuscular Volume 93.2 Mean Corpuscular Hemoglobin 29.3 Mean Corpuscular Hemoglobin Concent 31.4 L Red Cell Distribution Width 16.0 H Platelet Count 253 Mean Platelet Volume 9.5 Immature Granulocytes % 1.200 H Neutrophils % 57.0 Lymphocytes % 25.9 Monocytes % 11.2 H Eosinophils % 3.8 Basophils % 0.9 Nucleated Red Blood Cells % 0.0 Immature Granulocytes # 0.070 H Neutrophils # 3.3 Lymphocytes # 1.5 Monocytes # 0.7 Eosinophils # 0.2 Basophils # 0.1 Nucleated Red Blood Cells # 0.0 Sodium Level 137 Potassium Level 4.9 Chloride Level 102 Carbon Dioxide Level 25 Anion Gap 10 Blood Urea Nitrogen 52 H Creatinine 4.98 H Est Glomerular Filtrat Rate mL/min Glucose Level 100 Calcium Level 9.3 Consultation Date/Type/Reason Admit Date/Time Nov 26, 2018 at 11:28 Initial Consult Date 11/27/18 Requesting Provider: KATIE MENDEZ Exam/Review of Systems Vital Signs Vitals Vital Signs Date Temp Pulse Resp B/P (MAP) Pulse Ox O2 O2 Flow FiO2 Time Delivery Rate 12/15/18 85 16:30 12/15/18 18 149/68 97 Room Air 15:30 (95) 12/15/18 98.2 15:20 12/15/18 21 14:14 12/12/18 23:30 Intake and Output 12/14/18 12/14/18 12/15/18 1515:00 23:00 07:00 IntakeIntake Total 800 ml 700 ml OutputOutput Total 120 ml BalanceBalance 680 ml 700 ml Medications Medications Current Medications Albuterol/ Ipratropium (Duoneb) 3 ml Q6HWA RESP THERAPY HHN Last administered on 12/15/18at 14:14; Admin Dose 3 ML; Start 11/26/18 at 08:00 Acetaminophen (Tylenol Tab) 500 mg Q6H PRN PO MILD PAIN(1-3)OR ELEVATED TEMP Last administered on 12/10/18 20:39; Admin Dose 500 MG; Start 11/25/18 at 22:30 Albumin Human 50 ml @ 100 mls/hr WITH DIALYSIS PRN IV SBP lower than 90 mm Hg Last administered on 12/12/18 22:30; Admin Dose 100 MLS/HR; Start 11/26/18 at 14 :00 Sodium Chloride (NS) -To prime the dialy... DIRECTED FOR HD PRN IV SBP lower than 90 mm Hg ; Start 11/26/18 at 14:00 IV Flush (NS 10 ml) 10 ml PRN PRN IV IV PROTOCOL; Start 11/26/18 at 14:30 Hydralazine HCl (Apresoline) 20 mg Q6H PRN IV SBP > 160 Last administered on 11/29/18at 12:33; Admin Dose 20 MG; Start 11/28/18 at 07:00 Albuterol/ Ipratropium (Duoneb) 3 ml Q4H RESP THERAPY PRN HHN SHORTNESS OF BREATH Last administered on 12/02/18at 03:49; Admin Dose 3 ML; Start 11/29/18 at 01:00 Metoprolol Tartrate (Lopressor) 25 mg BID PO Last administered on 12/14/18at 20:37; Admin Dose 25 MG; Start 11/30/18 at 21:00 Metoprolol Tartrate (Lopressor) 5 mg Q4H PRN IV HR>110 Hold SBP<100; Start 11/30/18 at 12:30 Haloperidol (Haldol) 2 mg Q6H PRN IV hallucinations Last administered on 12/02/18 03:21; Admin Dose 2 MG; Start 12/01/18 at 19:30 Nifedipine (Procardia Xl) 30 mg DAILY PO Last administered on 12/12/18 08:31; Admin Dose 30 MG; Start 12/07/18 at 09:00 Levothyroxine Sodium (Synthroid) 150 mcg DAILY@06 PO Last administered on 12/15/18 05:02; Admin Dose 150 MCG; Start 12/08/18 at 06:00 Heparin Sodium (Porcine) (Heparin (1000 Units/ml)) 3,700 unit AFTER DIALYSIS CATHETER Last administered on 12/12/18 23:58; Admin Dose 3,700 UNIT; Start 12/08/18 at 16:00 Nystatin (Nystatin Susp) 5 ml QID PO Last administered on 12/15/18 13:21; Admin Dose 5 ML; Start 12/09/18 at 13:00 Pantoprazole (Protonix Tab) 40 mg DAILY@0600 PO Last administered on 12/15/18 05:02; Admin Dose 40 MG; Start 12/10/18 at 06:00 Gabapentin (Neurontin) 300 mg QHS PO Last administered on 12/14/18at 20:36; Admin Dose 300 MG; Start 12/09/18 at 21:00 Miscellaneous Information (*Order Clarification Bulletin) MEDICATION REQUIRES CLARIFICATION: Q8H XX ; Start 12/10/18 at 11:00 Nystatin (Nystatin Powder) 1 applic BID TOP Last administered on 12/15/18 09:26; Admin Dose 1 APPLIC; Start 12/10/18 at 21:00 Fluconazole (Diflucan) 100 mg DAILY PO Last administered on 12/15/18at 09:21; Admin Dose 100 MG; Start 12/12/18 at 09:00 Promethazine HCl/ Codeine (Phenergan/ Codeine) 10 ml Q6 PRN PO COUGH Last administered on 12/12/18 08:34; Admin Dose 10 ML; Start 12/11/18 at 20:30 Diphenhydramine HCl (Benadryl) 25 mg Q6H PRN PO ITCHING Last administered on 12/13/18at 02:33; Admin Dose 25 MG; Start 12/13/18 at 02:22 Polyethylene Glycol (Miralax) 17 gm DAILY PO Last administered on 12/15/18at 09:22; Admin Dose 17 GM; Start 12/14/18 at 09:00 Date/Time of Note Date/Time of Note DATE: 12/15/18 TIME: 17:06 MC LOONEY MD Dec 15, 2018 17:11
[2018-12-15] MEDS: HEPARIN 1000 UNITS/ML 10 ML INJ CATHETER SCH (18:31)
[2018-12-15] MEDS: GABAPENTIN 300 MG CAP PO SCH (21:08)
[2018-12-15] MEDS: ACETAMINOPHEN 500 MG TAB PO PRN (21:08)
[2018-12-15] MEDS: PROMETHAZINE/CODEINE 5ML CUP PO PRN (21:09)
[2018-12-15] MEDS ORDERED: VITAMIN A & D 5 GM OINT PACKET TOP ONE (21:17)
[2018-12-16] VITALS (9 sets, daily range): BP systolic 111–146; BP diastolic 57–66; PULSE 64–75; RESP 18–20
[2018-12-16] MEDS: LEVOTHYROXINE 150 MCG TAB PO SCH (05:21)
[2018-12-16] MEDS: PANTOPRAZOLE (EC) 40 MG TAB PO SCH (05:21)
[2018-12-16] MEDS: NYSTATIN SUSP 5 ML CUP PO SCH ×2 (08:16→12:50)
[2018-12-16] MEDS: POLYETHYLENE GLYCOL 17 GM PACKET PO SCH (08:16)
[2018-12-16] MEDS: METOPROLOL 25 MG TAB PO SCH (08:17)
[2018-12-16] MEDS: FLUCONAZOLE 100 MG TAB PO SCH (08:17)
[2018-12-16] MEDS: NIFEdipine (XL) 30 MG TAB PO SCH (08:17)
[2018-12-16] MEDS: NYSTATIN 30 GM POWDER BTL TOP SCH (08:18)
--- NOTE | 2018-12-16 08:26 | CONS ---
Assessment/Plan Assessment/Plan Assessment/Plan 1. Oliguric Acute kindey injury on CKD III due to ATN from septic shock, 2. Acute uremic encephalopathy 3. Acute hyperkalemia- resolved 4. Severe metabolic acidosis 5. Septic shock on pressors 2/2 UTI and bacteremia 6. acute hypoxemic respiraotry failure on BIPAP 7. acute on chronic,systolic and diastolic heart failure 8. H/o HTN 9. H/o COPD 10. Acute GI bleeding s/p 3 U PRBC , s/p EGD and Colonoscopy Plan: started on HD on 11/26/17- s/p Right chest permacath on 12/08/18- s/p HD yesterday 2 L removed, will keep pt on Fri, , Friday schedule Outpatient HD placement has been confirmed at [facility] [place] [facility] - Fri, friday at 4 pm Hb 8.2- Epogen for anemia of ESRD will follow up Result Diagram: 12/16/18 0605 12/16/18 0448 Results 24hrs Laboratory Tests Test 12/16/18 04:48 12/16/18 06:05 Sodium Level 138 Potassium Level 5.1 Chloride Level 99 Carbon Dioxide Level 26 Anion Gap 13 Blood Urea Nitrogen 31 #H Creatinine 3.37 #H Est Glomerular Filtrat Rate mL/min Glucose Level 93 Calcium Level 9.5 White Blood Count 6.5 Red Blood Count 2.97 L Hemoglobin 8.7 L Hematocrit 27.4 L Mean Corpuscular Volume 92.3 Mean Corpuscular Hemoglobin 29.3 Mean Corpuscular Hemoglobin Concent 31.8 L Red Cell Distribution Width 15.9 H Platelet Count 243 Mean Platelet Volume 9.1 Immature Granulocytes % 2.000 H Neutrophils % 57.7 Lymphocytes % 25.0 Monocytes % 10.7 Eosinophils % 3.7 Basophils % 0.9 Nucleated Red Blood Cells % 0.0 Immature Granulocytes # 0.130 H Neutrophils # 3.7 Lymphocytes # 1.6 Monocytes # 0.7 Eosinophils # 0.2 Basophils # 0.1 Nucleated Red Blood Cells # 0.0 Consultation Date/Type/Reason Admit Date/Time Nov 26, 2018 at 11:28 Initial Consult Date 11/26/18 Type of Consult NEPHROLOGY Requesting Provider: KATIE MENDEZ Exam/Review of Systems Vital Signs Vitals Vital Signs Date Temp Pulse Resp B/P (MAP) Pulse Ox O2 O2 Flow FiO2 Time Delivery Rate 12/16/18 97.4 68 18 146/66 97 07:23 (92) 12/15/18 21 20:08 12/15/18 Room Air 18:42 12/12/18 23:30 Intake and Output 12/15/18 12/15/18 12/16/18 1515:00 23:00 07:00 IntakeIntake Total 600 ml OutputOutput Total 2400 ml 100 ml BalanceBalance -2400 ml 500 ml Medications Medications Current Medications Albuterol/ Ipratropium (Duoneb) 3 ml Q6HWA RESP THERAPY HHN Last administered on 12/15/18at 20:08; Admin Dose 3 ML; Start 11/26/18 at 08:00 Acetaminophen (Tylenol Tab) 500 mg Q6H PRN PO MILD PAIN(1-3)OR ELEVATED TEMP Last administered on 12/15/18 21:08; Admin Dose 500 MG; Start 11/25/18 at 22:30 Albumin Human 50 ml @ 100 mls/hr WITH DIALYSIS PRN IV SBP lower than 90 mm Hg Last administered on 12/12/18at 22:30; Admin Dose 100 MLS/HR; Start 11/26/18 at 14:00 Sodium Chloride (NS) -To prime the dialy... DIRECTED FOR HD PRN IV SBP lower than 90 mm Hg ; Start 11/26/18 at 14:00 IV Flush (NS 10 ml) 10 ml PRN PRN IV IV PROTOCOL; Start 11/26/18 at 14:30 Hydralazine HCl (Apresoline) 20 mg Q6H PRN IV SBP > 160 Last administered on 11/29/18at 12:33; Admin Dose 20 MG; Start 11/28/18 at 07:00 Albuterol/ Ipratropium (Duoneb) 3 ml Q4H RESP THERAPY PRN HHN SHORTNESS OF BREATH Last administered on 12/02/18at 03:49; Admin Dose 3 ML; Start 11/29/18 at 01:00 Metoprolol Tartrate (Lopressor) 25 mg BID PO Last administered on 12/16/18at 08:17; Admin Dose 25 MG; Start 11/30/18 at 21:00 Metoprolol Tartrate (Lopressor) 5 mg Q4H PRN IV HR>110 Hold SBP<100; Start 11/30/18 at 12:30 Haloperidol (Haldol) 2 mg Q6H PRN IV hallucinations Last administered on 12/02/18 03:21; Admin Dose 2 MG; Start 12/01/18 at 19:30 Nifedipine (Procardia Xl) 30 mg DAILY PO Last administered on 12/16/18 08:17; Admin Dose 30 MG; Start 12/07/18 at 09:00 Levothyroxine Sodium (Synthroid) 150 mcg DAILY@06 PO Last administered on 11/25 05:21; Admin Dose 150 MCG; Start 12/08/18 at 06:00 Heparin Sodium (Porcine) (Heparin (1000 Units/ml)) 3,700 unit AFTER DIALYSIS CATHETER Last administered on 12/15/18 18:31; Admin Dose 3,700 UNIT; Start 12/08/18 at 16:00 Nystatin (Nystatin Susp) 5 ml QID PO Last administered on 12/16/18 08:16; Admin Dose 5 ML; Start 12/09/18 at 13:00 Pantoprazole (Protonix Tab) 40 mg DAILY@0600 PO Last administered on 12/16/18 05:21; Admin Dose 40 MG; Start 12/10/18 at 06:00 Gabapentin (Neurontin) 300 mg QHS PO Last administered on 12/15/18 21:08; Admin Dose 300 MG; Start 12/09/18 at 21:00 Miscellaneous Information (*Order Clarification Bulletin) MEDICATION REQUIRES CLARIFICATION: Q8H XX ; Start 12/10/18 at 11:00 Nystatin (Nystatin Powder) 1 applic BID TOP Last administered on 12/16/18 08:18; Admin Dose 1 APPLIC; Start 12/10/18 at 21:00 Fluconazole (Diflucan) 100 mg DAILY PO Last administered on 12/16/18 08:17; Admin Dose 100 MG; Start 12/12/18 at 09:00 Promethazine HCl/ Codeine (Phenergan/ Codeine) 10 ml Q6 PRN PO COUGH Last administered on 12/15/18 21:09; Admin Dose 10 ML; Start 12/11/18 at 20:30 Diphenhydramine HCl (Benadryl) 25 mg Q6H PRN PO ITCHING Last administered on 1/20/19at 02:33; Admin Dose 25 MG; Start 12/13/18 at 02:22 Polyethylene Glycol (Miralax) 17 gm DAILY PO Last administered on 12/16/18at 08:16; Admin Dose 17 GM; Start 12/14/18 at 09:00 Date/Time of Note Date/Time of Note DATE: 12/16/18 TIME: 08:26 GI HARTMAN MD Dec 16, 2018 08:26
[2018-12-16] MEDS: ALBUTEROL/IPRATROPIUM (NEB) 3 ML AMP HHN SCH ×2 (08:47→13:57)
--- NOTE | 2018-12-16 10:18 | CONS ---
Assessment/Plan Assessment/Plan Hospital Course - s/p leukocytosis on 12/05/2018 may reflect receipt of pRBC x2 units - s/p leukocytosis likely due to steroid margination 11/25/2018-12/01/2018 - s/p severe sepsis with septic shock due to UTI +/- bacteremia; s/p Dopamine - s/p UTI due to klebsiella and proteus - treated with ceftriaxone (11/25/2018- 11/29/2018) - s/p bacteremia 1/2 sets from 11/25/2018 due to coag negative Staph, likely contaminant - s/p SIRS due to acute hypoxic resp failure and acute on chronic renal failure - acute hypoxic resp failure, probably due to CHF exacerbation +/- aspiration pneumonia/pneumonitis, off bipap - acute on chronic diastolic CHF, improved after HD - s/p tachycardia c/w AF/AFL with RVR - now in sinus - s/p bradycardia to 40's, now SR - acute on chronic renal failure, started on HD on 11/26/2018 - s/p R IJ permacath placement 12/08/2018 - acute on chronic anemia requiring PRBC - s/p upper GIB - gastritis, duodenitis, esophagitis and moderate size hiatal hernia per EGD with biopsy on 12/07/2018; Path +fungal yeast in esophagus - esophageal candidiasis - on Fluconazole and po nystatin - external hemorrhoids, mild to moderate diverticulosis per Colonoscopy and polypectomy 12/07/2018; Path negative for dysplasia or malignancy - intertrigo in groin area - underlying COPD - CAD - hypothyroidism - TSH elevated and FT4 depressed - gout - eschar of L 4th toe, probably ischemic eschar/ischemia - acute encephalopathy due to sepsis, improving - note: Pt completed cefepime (11/30/2018-12/02/2018) and ceftriaxone (11/25/2018-2018) Recommendations: - Continue fluconazole (12/09/2018-, switched to PO on 12/12/2018) and PO nystatin for oral candidiasis - Continue nystatin powder (12/10/2018-) for intertrigo of b/l groin Management was d/w patient and with Dr. Haile. Thank you. Result Diagram: 12/16/18 0605 12/16/18 0448 Results 24hrs Laboratory Tests Test 12/16/18 04:48 12/16/18 06:05 Sodium Level 138 Potassium Level 5.1 Chloride Level 99 Carbon Dioxide Level 26 Anion Gap 13 Blood Urea Nitrogen 31 #H Creatinine 3.37 #H Est Glomerular Filtrat Rate mL/min Glucose Level 93 Calcium Level 9.5 White Blood Count 6.5 Red Blood Count 2.97 L Hemoglobin 8.7 L Hematocrit 27.4 L Mean Corpuscular Volume 92.3 Mean Corpuscular Hemoglobin 29.3 Mean Corpuscular Hemoglobin Concent 31.8 L Red Cell Distribution Width 15.9 H Platelet Count 243 Mean Platelet Volume 9.1 Immature Granulocytes % 2.000 H Neutrophils % 57.7 Lymphocytes % 25.0 Monocytes % 10.7 Eosinophils % 3.7 Basophils % 0.9 Nucleated Red Blood Cells % 0.0 Immature Granulocytes # 0.130 H Neutrophils # 3.7 Lymphocytes # 1.6 Monocytes # 0.7 Eosinophils # 0.2 Basophils # 0.1 Nucleated Red Blood Cells # 0.0 Consultation Date/Type/Reason Admit Date/Time Nov 26, 2018 at 11:28 Initial Consult Date 11/27/18 Type of Consult ID Requesting Provider: KATIE MENDEZ 24 HR Interval Summary Free Text/Dictation D/c planning noted. Patient states she still has a cough but that she didn't cough at all last night. Otherwise denied all ROS when reviewed. Exam/Review of Systems Vital Signs Vitals Vital Signs Date Temp Pulse Resp B/P (MAP) Pulse Ox O2 O2 Flow FiO2 Time Delivery Rate 12/16/18 67 09:07 12/16/18 20 94 21 08:47 12/16/18 97.4 146/66 07:23 (92) 12/15/18 Room Air 18:42 12/12/18 23:30 Intake and Output 12/15/18 12/15/18 12/16/18 1515:00 23:00 07:00 IntakeIntake Total 600 ml OutputOutput Total 2400 ml 100 ml BalanceBalance -2400 ml 500 ml Allergies Coded Allergies aspirin (Verified Allergy, Unknown, 11/25/18) Exam Constitutional: alert, well developed, obese Psych: no complaints, nl mood/affect Head: normocephalic, atraumatic Eyes: nl conjunctiva, nl lids, nl sclera ENMT: nl external ears & nose, nl nasal mucosa & septum, mucosa pink and moist (no thrush noted), other (poor dentition) Neck: supple, non-tender Respiratory: clear to auscultation, normal air movement, other (a dry cough during assessment) Cardiovascular: regular rate and rhythm, nl pulses Gastrointestinal: soft, non-tender, bowel sounds (normoactive ) Genitourinary - Female: other (R SL permacath in place - with some bruising surrounding, otherwise cdi.) Musculoskeletal: nl extremities to inspection Extremities: normal pulses 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: nl mental status, nl speech Skin: ecchymosis (tacos anterior hands); No rash or lesions Medications Medications Current Medications Albuterol/ Ipratropium (Duoneb) 3 ml Q6HWA RESP THERAPY HHN Last administered on 12/16/18at 08:47; Admin Dose 3 ML; Start 11/26/18 at 08:00 Acetaminophen (Tylenol Tab) 500 mg Q6H PRN PO MILD PAIN(1-3)OR ELEVATED TEMP Last administered on 12/15/18at 21:08; Admin Dose 500 MG; Start 11/25/18 at 22:30 Albumin Human 50 ml @ 100 mls/hr WITH DIALYSIS PRN IV SBP lower than 90 mm Hg Last administered on 12/12/18 22:30; Admin Dose 100 MLS/HR; Start 11/26/18 at 14:00 Sodium Chloride (NS) -To prime the dialy... DIRECTED FOR HD PRN IV SBP lower than 90 mm Hg ; Start 11/26/18 at 14:00 IV Flush (NS 10 ml) 10 ml PRN PRN IV IV PROTOCOL; Start 11/26/18 at 14:30 Hydralazine HCl (Apresoline) 20 mg Q6H PRN IV SBP > 160 Last administered on 11/29/18at 12:33; Admin Dose 20 MG; Start 11/28/18 at 07:00 Albuterol/ Ipratropium (Duoneb) 3 ml Q4H RESP THERAPY PRN HHN SHORTNESS OF BREATH Last administered on 12/02/18at 03:49; Admin Dose 3 ML; Start 11/29/18 at 01:00 Metoprolol Tartrate (Lopressor) 25 mg BID PO Last administered on 12/16/18 08:17; Admin Dose 25 MG; Start 11/30/18 at 21:00 Metoprolol Tartrate (Lopressor) 5 mg Q4H PRN IV HR>110 Hold SBP<100; Start 11/30/18 at 12:30 Haloperidol (Haldol) 2 mg Q6H PRN IV hallucinations Last administered on 12/02/18 03:21; Admin Dose 2 MG; Start 12/01/18 at 19:30 Nifedipine (Procardia Xl) 30 mg DAILY PO Last administered on 12/16/18 08:17; Admin Dose 30 MG; Start 12/07/18 at 09:00 Levothyroxine Sodium (Synthroid) 150 mcg DAILY@06 PO Last administered on 12/16/18 05:21; Admin Dose 150 MCG; Start 12/08/18 at 06:00 Heparin Sodium (Porcine) (Heparin (1000 Units/ml)) 3,700 unit AFTER DIALYSIS CATHETER Last administered on 12/15/18 18:31; Admin Dose 3,700 UNIT; Start at 16:00 Nystatin (Nystatin Susp) 5 ml QID PO Last administered on 12/16/18 08:16; Admin Dose 5 ML; Start 12/09/18 at 13:00 Pantoprazole (Protonix Tab) 40 mg DAILY@0600 PO Last administered on 12/16/18 05:21; Admin Dose 40 MG; Start 12/10/18 at 06:00 Gabapentin (Neurontin) 300 mg QHS PO Last administered on 12/15/18 21:08; Admin Dose 300 MG; Start 12/09/18 at 21:00 Miscellaneous Information (*Order Clarification Bulletin) MEDICATION REQUIRES CLARIFICATION: Q8H XX ; Start 12/10/18 at 11:00 Nystatin (Nystatin Powder) 1 applic BID TOP Last administered on 12/16/18 08:18; Admin Dose 1 APPLIC; Start 12/10/18 at 21:00 Fluconazole (Diflucan) 100 mg DAILY PO Last administered on 12/16/18 08:17; Admin Dose 100 MG; Start 12/12/18 at 09:00 Promethazine HCl/ Codeine (Phenergan/ Codeine) 10 ml Q6 PRN PO COUGH Last administered on 12/15/18 21:09; Admin Dose 10 ML; Start 12/11/18 at 20:30 Diphenhydramine HCl (Benadryl) 25 mg Q6H PRN PO ITCHING Last administered on 12/13/18at 02:33; Admin Dose 25 MG; Start 12/13/18 at 02:22 Polyethylene Glycol (Miralax) 17 gm DAILY PO Last administered on 12/16/18at 08:16; Admin Dose 17 GM; Start 12/14/18 at 09:00 Date/Time of Note Date/Time of Note DATE: 12/16/18 TIME: 10:09 PRINCE SMITH NP Dec 16, 2018 10:18
--- NOTE | 2018-12-16 11:53 | CONS ---
Assessment/Plan Cardiology Heart Failure NYHA Class: III Heart Failure Timing: Acute Heart Failure Type: Diastolic Assessment/Plan Hospital Course (Demo Recall) IMPRESSION: 1. Shock, on dopamine pressor support at this time with previously preserved EF by most recent echo September 2018 of 60% to 65%.-improved off dopamine and tolerating BP medications 2. Abnormal echocardiogram, assess for acute coronary syndrome.-neg trop 3. Congestive heart failure, diastolic, acute on chronic, in the setting of renal failure. 4. Renal failure now on HD 5. Anemia-requiring transfusions 6. Hyponatremia-improved 7. Urinary tract infection. 8. Tachycardia-c/w AF/AFL with RVR 9. Bradycardia- to 40's when converts to SR 10. Esophagitis-by endoscopy celeste on antifungals REcc: -Tele -Continue fluconazole -Continue CCB/BB as tolerated -Follow volume status clsoely -Follow for recurrent significant bradycardia -HD for volume removal -Will resume plavix per GI note but question ability to start true systemic anticoag Consultation Date/Type/Reason Admit Date/Time Nov 26, 2018 at 11:28 Initial Consult Date 11/26/18 Type of Consult Cardiology Reason for Consultation abnl ecg Requesting Provider: KATIE MENDEZ Date/Time of Note DATE: 12/16/18 TIME: 11:48 Exam/Review of Systems Vital Signs Vitals Vital Signs Date Temp Pulse Resp B/P (MAP) Pulse Ox O2 O2 Flow FiO2 Time Delivery Rate 12/16/18 97.7 68 18 111/57 98 11:18 (75) 12/16/18 21 08:47 12/15/18 Room Air 18:42 12/12/18 23:30 Intake and Output 12/15/18 12/15/18 12/16/18 1515:00 23:00 07:00 IntakeIntake Total 600 ml OutputOutput Total 2400 ml 100 ml BalanceBalance -2400 ml 500 ml Exam Exam Review of Systems: CONSTITUTIONAL: No fevers, chills. PULMONARY: No sob CARDIOVASCULAR: No chest pain/palpitations GASTROINTESTINAL: No nausea/vomiting. GENITOURINARY: No hematuria/dysuria. MUSCULOSKELETAL: No myagias/arthalgias. PSYCHIATRIC: The patient denies depression. NEUROLOGIC: No weakness Constitutional: other (sleeping) Psych: no complaints Head: normocephalic Eyes: nl conjunctiva ENMT: mucosa pink and moist Neck: supple, jvd (9 cm water) Respiratory: diminished breath sounds (at bases/B) Cardiovascular: regular rate and rhythm Gastrointestinal: soft, non-tender Musculoskeletal: muscle tone (normal) Extremities: pitting pedal edema (trace/B) 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: other (No focal deficits) Labs Result Diagram: 12/16/18 0605 12/16/18 0448 Results 24hrs Laboratory Tests Test 12/16/18 04:48 12/16/18 06:05 Sodium Level 138 Potassium Level 5.1 Chloride Level 99 Carbon Dioxide Level 26 Anion Gap 13 Blood Urea Nitrogen 31 #H Creatinine 3.37 #H Est Glomerular Filtrat Rate mL/min Glucose Level 93 Calcium Level 9.5 White Blood Count 6.5 Red Blood Count 2.97 L Hemoglobin 8.7 L Hematocrit 27.4 L Mean Corpuscular Volume 92.3 Mean Corpuscular Hemoglobin 29.3 Mean Corpuscular Hemoglobin Concent 31.8 L Red Cell Distribution Width 15.9 H Platelet Count 243 Mean Platelet Volume 9.1 Immature Granulocytes % 2.000 H Neutrophils % 57.7 Lymphocytes % 25.0 Monocytes % 10.7 Eosinophils % 3.7 Basophils % 0.9 Nucleated Red Blood Cells % 0.0 Immature Granulocytes # 0.130 H Neutrophils # 3.7 Lymphocytes # 1.6 Monocytes # 0.7 Eosinophils # 0.2 Basophils # 0.1 Nucleated Red Blood Cells # 0.0 ALVINA GARCIA Dec 16, 2018 11:53
--- NOTE | 2018-12-16 22:56 | DS ---
Date/Time of Note Date/Time of Note DATE: 12/16/18 TIME: 22:52 Discharge Summary Admission/Discharge Info Admit Date/Time Nov 26, 2018 at 11:28 Discharge Date/Time Dec 16, 2018 at 16:50 Patient Condition: Stable Hx of Present Illness The patient is a 88-year-old female with history of congestive heart failure, chronic kidney disease stage III, aortic stenosis, COPD, hypertension, hyperlipidemia, anemia, hypothyroidism, gout and depression. [facility] was [facility] from [facility] for shortness of breath and increased bilateral lower extremities edema. Chest x-ray will revealed increased interstitial edema suggesting cardiopulmonary congestion and trace bilateral pleural effusions. Patient was placed on BiPAP. Patient noted to be h ypotensive and bradycardic and was placed on dopamine drip. Patient also had increased BUN and creatinine and elevated potassium. Patient was admitted to intensive care unit for further management. Hospital Course Pt d/[facility] to [facility] -Anemia secondary to GI bleed. Protonix IV. Heparin is stopped. Transfuse as needed. Patient with stable hemoglobin. Plavix restarted per GI recs prior to d/c. -Status post EGD with notion of erosive gastritis and moderate duodenitis as well as hiatal hernia continue PPI. Status post colonoscopy with polypectomy and notion of moderate diverticulosis on 12/07/2018. Dr. Lewis is following in gastroenterology consultation. -Lissy esophagitis, continue nystatin swish and swallow. -Acute respiratory failure, resolved. Dr. Garcia is following in pulmonology consultation. -S/p sepsis secondary to UTI. Continue antibiotics per ID. Dr. Jordan is following in infection disease consultation. -S/p septic and cardiogenic shock -S/p Left lower lobe pneumonia -Acute on chronic systolic and diastolic congestive heart failure, improved with hemodialysis. Dr. Iraheta is following in cardiology consultation. -ARF on CKD. Patient started on hemodialysis during this admission. Continue hemodialysis per nephrology. Dr Hill is following in nephrology consultation. -Status post right chest permacath placement -Pulmonary edema,resolved. -Hypothyroidism, continue Synthroid. -DNR status Plan of care discussed with Dr. Olivier. Home Meds Reported Medications Clopidogrel Bisulfate* (Clopidogrel Bisulfate*) 75 Mg Tablet, 75 MG PO DAILY, #30 TAB 11/25/18 Furosemide* (Furosemide*) 40 Mg Tablet, 40 MG PO BID, TAB HOLD FOR SBP<110 11/25/18 Mupirocin* (Bactroban*) 2% -22 Gram Oint...g., 1 APPLIC TOP BID, #1 TUB SITE OF APPLICATION: 11/25/18 Pantoprazole* (Pantoprazole*) 40 Mg Tablet.dr, 40 MG PO AC BREAKFAST, TAB 11/25/18 Prednisone* (Prednisone*) 20 Mg Tab, 40 MG PO DAILY, TAB FOR 4 DAYS,START DATE 11/23/18, END DATE 11/27/18 11/25/18 Guaifenesin-Dextromethorphan* (Robitussin* DM) 100MG/10MG/5ML Syrup, 10 ML PO Q4H PRN for COUGH, ML 02/15/18 Gabapentin* (Gabapentin*) 300 Mg Capsule, 300 MG PO QHS, #60 CAP 02/15/18 Pramipexole* (Mirapex*) 0.5 Mg Tablet, 0.5 MG PO QHS, TAB 02/15/18 Hydralazine Hcl* (Hydralazine Hcl*) 25 Mg Tab, 25 MG PO Q6H PRN for FOR BP>160/95, #60 TAB 02/15/18 Tamsulosin Hcl* (Flomax*) 0.4 Mg Cap.er.24h, 0.4 MG PO DAILY, CAP 02/15/18 Ferrous Sulfate* (Ferrous Sulfate*) 325 Mg Tabec, 325 MG PO DAILY, TAB 02/15/18 Bisacodyl* (Bisacodyl*) 10 Mg Supp, 10 MG [place] Q48H, SUPP 02/15/18 Docusate Sodium* (Docusate Sodium*) 100 Mg Capsule, 100 MG PO BID, #60 CAP 02/15/18 Atorvastatin Calcium (Atorvastatin Calcium) 10 Mg Tablet, 10 MG PO QHS, #30 TAB 02/15/18 Aspirin* (Aspirin* EC) 325 Mg Tab, 325 MG PO DAILY, TAB 02/15/18 Amiodarone Hcl* (Amiodarone Hcl*) 200 Mg Tablet, 200 MG PO DAILY, #30 TAB HOLD IF APICAL PULSE IS<60 02/15/18 Allopurinol* (Allopurinol*) 100 Mg Tablet, 200 MG PO DAILY, TAB 02/15/18 Acetaminophen* (Acetaminophen*) 325 Mg Tablet, 650 MG PO Q4H PRN for MILD PAIN LEVEL 1-3, #30 TAB AND FOR FEVER 02/15/18 Follow-up Plan d/c to SN[facility] with arrangements for HD [facility] at [facility] Primary Care Provider Jaylen Olivier MD Time spent on discharge: > 30 minutes Pending Labs Laboratory Tests Test 12/16/18 04:48 12/16/18 06:05 12/16/18 21:05 Sodium Level 138 mmol/L (135-144) Potassium Level 5.1 mmol/L (3.5-5.1) Chloride Level 99 mmol/L (97-110) Carbon Dioxide 26 mmol/L (21-31) Level Anion Gap 13 (5-13) Blood Urea 31 mg/dl (7-20) Nitrogen Creatinine 3.37 mg/dl (0.44-1.00) Est Glomerular mL/min (>60) Filtrat Rate mL/min Glucose Level 93 mg/dl (70-220) Calcium Level 9.5 mg/dl (8.4-10.2) White Blood Count 6.5 10^3/ul (4.8-10.8) Red Blood Count 2.97 10^6/ul (4.20-5.40 ) Hemoglobin 8.7 g/dl (12.0-16.0) Hematocrit 27.4 % (37.0-47.0) Mean Corpuscular 92.3 Volume fl (82.0-101.0) Mean Corpuscular 29.3 Hemoglobin pg (29.0-33.0) Mean Corpuscular 31.8 Hemoglobin Concent g/dl (32.0-37.0) Red Cell 15.9 % (11.5-14.5) Distribution Width Platelet Count 243 10^3/UL (140-415) Mean Platelet 9.1 fl (7.4-10.4) Volume Immature 2.000 Granulocytes % % (0.001-0.429) Neutrophils % 57.7 % (39.0-77.0) Lymphocytes % 25.0 % (15.0-51.0) Monocytes % 10.7 % (0.0-11.0) Eosinophils % 3.7 % (0.0-7.0) Basophils % 0.9 % (0.0-2.0) Nucleated Red Blood 0.0 Cells % /100WBC (0.0-0.0) Immature 0.130 Granulocytes # 10^3/ul (0.0-0.031 ) Neutrophils # 3.7 10^3/ul (1.6-7.5) Lymphocytes # 1.6 10^3/ul (0.8-2.9) Monocytes # 0.7 10^3/ul (0.3-0.9) Eosinophils # 0.2 10^3/ul (0.0-0.5) Basophils # 0.1 10^3/ul (0.0-0.1) Nucleated Red Blood 0.0 Cells # 10^3/ul (0.0-0.0) Lab Scanned Report REFER[facility] [id number] EDWAR VARGAS Dec 16, 2018 22:56
[2018-12-17] MEDS ORDERED: CLOPIDOGREL 75 MG TAB PO SCH (09:00)
== END 2018-12-16 16:50 | DRG 871 ==
LOC: E/R 17:08 → ICU 17:12 → CANRESERV 18:45 → EDBEDREQSVC 19:36 → EDBEDREQ 19:36 → OBSVTOIN 11-26 11:28 → 6WM 11-28 17:27
PROVIDERS: ADMIT Internal Medicine; ATTEND Internal Medicine
PROC: 30233N1 Transfusion of Nonautologous Red Blood Cells into Peripheral Vein, Percutaneous Approach (ICD-10-PCS; 2018-11-25)
PROC: 06HY33Z Insertion of Infusion Device into Lower Vein, Percutaneous Approach (ICD-10-PCS; principal; 2018-11-26)
PROC: 02HV33Z Insertion of Infusion Device into Superior Vena Cava, Percutaneous Approach (ICD-10-PCS; 2018-11-26)
PROC: 5A1D70Z Performance of Urinary Filtration, Intermittent, Less than 6 Hours Per Day (ICD-10-PCS; 2018-11-27)
PROC: 06HY33Z Insertion of Infusion Device into Lower Vein, Percutaneous Approach (ICD-10-PCS; 2018-12-04)
PROC: 0DB58ZX Excision of Esophagus, Via Natural or Artificial Opening Endoscopic, Diagnostic (ICD-10-PCS; 2018-12-07)
PROC: 0DBH8ZZ Excision of Cecum, Via Natural or Artificial Opening Endoscopic (ICD-10-PCS; 2018-12-07)
PROC: 0JH63XZ Insertion of Tunneled Vascular Access Device into Chest Subcutaneous Tissue and Fascia, Percutaneous Approach (ICD-10-PCS; 2018-12-08)
PROC: 02H633Z Insertion of Infusion Device into Right Atrium, Percutaneous Approach (ICD-10-PCS; 2018-12-08)
PROC: B214YZZ Fluoroscopy of Right Heart using Other Contrast (ICD-10-PCS; 2018-12-08)
PROC: 06PYX3Z Removal of Infusion Device from Lower Vein, External Approach (ICD-10-PCS; 2018-12-08)
DX: A41.9 Sepsis, unspecified organism (principal); N17.0 Acute kidney failure with tubular necrosis; R65.21 Severe sepsis with septic shock; G93.41 Metabolic encephalopathy; I50.43 Acute on chronic combined systolic (congestive) and diastolic (congestive) heart failure; J96.01 Acute respiratory failure with hypoxia; J18.9 Pneumonia, unspecified organism; R57.0 Cardiogenic shock; K29.61 Other gastritis with bleeding; K29.81 Duodenitis with bleeding; K57.31 Diverticulosis of large intestine without perforation or abscess with bleeding; I13.0 Hypertensive heart and chronic kidney disease with heart failure and stage 1 through stage 4 chronic kidney disease, or unspecified chronic kidney disease; E87.2 Acidosis; E87.1 Hypo-osmolality and hyponatremia; N39.0 Urinary tract infection, site not specified; D62 Acute posthemorrhagic anemia; B37.81 Candidal esophagitis; T82.9XXA Unspecified complication of cardiac and vascular prosthetic device, implant and graft, initial encounter; D63.1 Anemia in chronic kidney disease; D12.0 Benign neoplasm of cecum; E87.5 Hyperkalemia; E03.9 Hypothyroidism, unspecified; I25.10 Atherosclerotic heart disease of native coronary artery without angina pectoris; J44.9 Chronic obstructive pulmonary disease, unspecified; K64.4 Residual hemorrhoidal skin tags; K44.9 Diaphragmatic hernia without obstruction or gangrene; L30.4 Erythema intertrigo; N18.3 Chronic kidney disease, stage 3 (moderate); B96.1 Klebsiella pneumoniae [K. pneumoniae] as the cause of diseases classified elsewhere; B96.4 Proteus (mirabilis) (morganii) as the cause of diseases classified elsewhere; Z66 Do not resuscitate
CPT/HCPCS: 36415; 36430; 36569; 36600; 71045; 76775; 76937; 80048; 80053; 80202; 81001; 81003; 82270; 82570; 82607; 82803; 82962; 83605; 83880; 84300; 84439; 84443; 84484; 84560; 85014; 85018; 85025; 85610; 85730; 86703; 86704; 86709; 86803; 86850; 86900; 86901; 86920; 87040; 87081; 87086; 87340; 87400; 88305; 88313; 89190; 90935; 92526; 92610; 93005; 93970; 94640; 94660; 94664; C1752; C1769; C9113; G0378; J0360; J0461; J0690; J0692; J0696; J1265; J1450; J1630; J1644; J1940; J2150; J2250; J2274; J2370; J2405; J2920; J2997; J3010; J3370; J3480; J7030; J7040; J7050; J7070; P9016; P9047; Q4081

== ENCOUNTER 2019-01-01 08:09 | Inpatient (IN) | payer MEDICARE, OTHER ==
[~2019-01-01] VITALS: Ht 157.5 cm; Wt 72.4 kg
[~2019-01-01 08:09] MED LIST changes: -CALC-459 PO; +CLOP75TA19 PO; -DICL100G37 TOP; -EPOE10004 IJ; +FURO40TA4 PO; -GUAI-602 PO; -IPRA3AMP29 INHALATION; -ISOS10TA2 PO; +MUPI22OI2 TOP; -NITR0.4T32 SL; -OMEG-135 PO; -OMEP20CA16 PO; -OXYC-438 PO; +PANT40TA4 PO; -SODI15OR8 PO
[2019-01-01] MEDS ORDERED: ACETAMINOPHEN 325 MG TAB PO PRN (08:30)
[2019-01-01] MEDS ORDERED: ONDANSETRON 4 MG INJ IV PRN (08:30)
[2019-01-01] MEDS ORDERED: SOD CHLORIDE 0.9% 0 ML IV ONE (09:05)
--- NOTE | 2019-01-01 09:15 | ERD ---
ER Documentation Chief Complaint Chief Complaint SENT FROM SNF FOR EVAL OF LOW H&H. DENIES ANY BLOOD IN STOOL HPI Patient is an 88-year-old female who presents for anemia. She was brought in by ambulance. She was sent to the ER from a nursing facility for a hemoglobin of 6.5. Her primary doctor is Dr. Olivier. She was recently discharged on December 16. She denies bleeding. She does take aspirin. Dr. Olivier says that the patient has not been responding to Procrit and will likely need blood transfusion. ROS All systems reviewed and are negative except as per history of present illness. Medications Home Meds Reported Medications Clopidogrel Bisulfate* (Clopidogrel Bisulfate*) 75 Mg Tablet, 75 MG PO DAILY, #30 TAB 11/25/18 Furosemide* (Furosemide*) 40 Mg Tablet, 40 MG PO BID, TAB HOLD FOR SBP<110 11/25/18 Mupirocin* (Bactroban*) 2% -22 Gram Oint...g., 1 APPLIC TOP BID, #1 TUB SITE OF APPLICATION: 11/25/18 Pantoprazole* (Pantoprazole*) 40 Mg Tablet.dr, 40 MG PO AC BREAKFAST, TAB 11/25/18 Prednisone* (Prednisone*) 20 Mg Tab, 40 MG PO DAILY, TAB FOR 4 DAYS,START DATE 11/23/18, END DATE 11/27/18 11/25/18 Guaifenesin-Dextromethorphan* (Robitussin* DM) 100MG/10MG/5ML Syrup, 10 ML PO Q4H PRN for COUGH, ML 02/15/18 Gabapentin* (Gabapentin*) 300 Mg Capsule, 300 MG PO QHS, #60 CAP 02/15/18 Pramipexole* (Mirapex*) 0.5 Mg Tablet, 0.5 MG PO QHS, TAB 02/15/18 Hydralazine Hcl* (Hydralazine Hcl*) 25 Mg Tab, 25 MG PO Q6H PRN for FOR BP>160/95, #60 TAB 02/15/18 Tamsulosin Hcl* (Flomax*) 0.4 Mg Cap.er.24h, 0.4 MG PO DAILY, CAP 02/15/18 Ferrous Sulfate* (Ferrous Sulfate*) 325 Mg Tabec, 325 MG PO DAILY, TAB 02/15/18 Bisacodyl* (Bisacodyl*) 10 Mg Supp, 10 MG [place] Q48H, SUPP 02/15/18 Docusate Sodium* (Docusate Sodium*) 100 Mg Capsule, 100 MG PO BID, #60 CAP 02/15/18 Atorvastatin Calcium (Atorvastatin Calcium) 10 Mg Tablet, 10 MG PO QHS, #30 TAB 02/15/18 Aspirin* (Aspirin* EC) 325 Mg Tab, 325 MG PO DAILY, TAB 02/15/18 Amiodarone Hcl* (Amiodarone Hcl*) 200 Mg Tablet, 200 MG PO DAILY, #30 TAB HOLD IF APICAL PULSE IS<60 02/15/18 Allopurinol* (Allopurinol*) 100 Mg Tablet, 200 MG PO DAILY, TAB 02/15/18 Acetaminophen* (Acetaminophen*) 325 Mg Tablet, 650 MG PO Q4H PRN for MILD PAIN LEVEL 1-3, #30 TAB AND FOR FEVER 02/15/18 Allergies Allergies: Coded Allergies: aspirin (Verified Allergy, Unknown, 11/25/18) PMhx/Soc History of Surgery: Yes (CHOLECYSTECTOMY,APPENDECTOMY) Anesthesia Reaction: No Hx 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 Disorder: No Hx Respiratory Disorders: Yes (COPD) Hx Cardiac Disorders: Yes (HTN, CHF, HIGH CHOLESTEROL) Hx Psychiatric Problems: Yes (DEPRESSION) Hx Miscellaneous Medical Probl: Yes (OBESITY, CKD ON HD) Hx Alcohol Use: No Hx Substance Use: No Hx Tobacco Use: No Smoking Status: Never smoker FmHx Family History: No diabetes Physical Exam Vitals Vital Signs Date Temp Pulse Resp B/P (MAP) Pulse Ox O2 O2 Flow FiO2 Time Delivery Rate 01/01/19 98.2 72 16 112/42 98 Room Air 09:08 (65) 01/01/19 98.2 98 16 129/110 100 08:19 (116) Physical Exam Const: No acute distress Head: Atraumatic Eyes: Normal Conjunctiva ENT: Normal External Ears, Nose and Mouth. Neck: Full range of motion. No meningismus. Resp: Clear to auscultation bilaterally Cardio: Regular rate and rhythm, no murmurs Abd: Soft, non tender, non distended. Normal bowel sounds Skin: Pale skin Back: No midline or flank tenderness Ext: No cyanosis, or edema Neur: Awake and alert Psych: Normal Mood and Affect Result Diagram: 01/01/1982701/01/1928 Results 24 hrs Laboratory Tests Test 01/01/19 08:28 White Blood Count 11.9 10^3/ul Red Blood Count 2.48 10^6/ul Hemoglobin 7.4 g/dl Hematocrit 23.5 % Mean Corpuscular Volume 94.8 fl Mean Corpuscular Hemoglobin 29.8 pg Mean Corpuscular Hemoglobin Concent 31.5 g/dl Red Cell Distribution Width 16.5 % Platelet Count 106 10^3/UL Mean Platelet Volume 10.2 fl Immature Granulocytes % 1.000 % Neutrophils % 65.2 % Lymphocytes % 18.9 % Monocytes % 10.0 % Eosinophils % 4.5 % Basophils % 0.4 % Nucleated Red Blood Cells % 0.0 /100WBC Immature Granulocytes # 0.120 10^3/ul Neutrophils # 7.8 10^3/ul Lymphocytes # 2.3 10^3/ul Monocytes # 1.2 10^3/ul Eosinophils # 0.5 10^3/ul Basophils # 0.1 10^3/ul Nucleated Red Blood Cells # 0.0 10^3/ul Prothrombin Time 24.1 Sec Prothrombin Time Ratio 1.9 INR International Normalized Ratio 2.15 Activated Partial Thromboplast Time 29.8 Sec Sodium Level 141 mmol/L Potassium Level 3.7 mmol/L Chloride Level 105 mmol/L Carbon Dioxide Level 30 mmol/L Anion Gap 6 Blood Urea Nitrogen 33 mg/dl Creatinine 3.62 mg/dl Est Glomerular Filtrat Rate mL/min mL/min Glucose Level 102 mg/dl Calcium Level 9.1 mg/dl Total Bilirubin 0.2 mg/dl Direct Bilirubin 0.00 mg/dl Indirect Bilirubin 0.2 mg/dl Aspartate Amino Transf (AST/SGOT) 24 IU/L Alanine Aminotransferase (ALT/SGPT) 17 IU/L Alkaline Phosphatase 99 IU/L Troponin I 0.021 ng/ml Total Protein 6.7 g/dl Albumin 3.6 g/dl Globulin 3.10 g/dl Albumin/Globulin Ratio 1.16 Current Medications Medications Dose Sig/Chuck Start Time Status Last (Trade) Ordered Route PRN Stop Time Admin Dose Reason Admin Ondansetron 4 mg BRIDGE ORDER 01/01/19 HCl (Zofran PRN IV 08:30 01/02/19 Inj) NAUSEA/VOMITI 08:29 NG 650 mg ER BRIDGE 01/01/19 Acetaminophen PRN PO 08:30 2/9/19 (Tylenol .MILD PAIN 08:29 Tab) 1-3 OR TEMP Sodium 0 ml @ 0 Q0M ONCE 01/01/19 DC Chloride mls/hr IV 09:05 01/01/19 09:06 Procedures/MDM EKG read by me: Rate/Rhythm: Regular rate and rhythm at a normal rate Intervals: Normal Impression: No evidence of ischemia or arrhythmia Patient is a 88-year-old female who presents with acute anemia. The patient has a hemoglobin of 7.4. I spoke with Dr. Olivier and he would like transfusion of 1 unit of packed red blood cells which I have ordered. The patient has no active bleeding at this time and this may be anemia of chronic disease. The patient will be admitted to a medical surgical bed under the care of Dr. Olivier. I believe that inpatient admission would be reasonable at this time as the patient will likely stay more than 24 hours. Critical Care: Time: 35 minutes excluding all billable procedures. Treatments/Evaluations: Close monitoring and treatment of unstable vital signs, cardiorespiratory, and neurologic status, while maintaining tight balance of fluid, respiratory, and cardiac interventions. Departure Diagnosis: Primary Impression: Anemia Anemia type: unspecified type Qualified Codes: D64.9 - Anemia, unspecified Condition: ABDOUL Fontenot MD Jan 01, 2019 09:15
[2019-01-01 09:43] VITALS: BP 132/59; PULSE 80; RESP 20
--- NOTE | 2019-01-01 11:07 | NUR ---
PT IS HERE FOR ANEMIA. FROM SNF. PT IS ALERT X 4, AWAKE AND VERY PLEASANT PT. PT IS HUNGRY, SHE STATED THAT SHE DIDN'T EAT HER BREAKFAST . FOOD WAS SERVED, PT TOLERATED. BLOOD TRANSFUSION STARTED WITNESSED BY SOHAIL BARCENAS. VITAL SIGNS STABLE. WILL MONITOR.
[2019-01-01] MEDS ORDERED: BEN25 PO (11:46)
[2019-01-01] MEDS ORDERED: DOCU-159 PO (11:57)
[2019-01-01] MEDS ORDERED: [UNRECOGNIZED DRUG - CODE] SC (11:59)
[2019-01-01] MEDS ORDERED: IPRA3AMP29 INHALATION (12:00)
[2019-01-01] MEDS ORDERED: METO25TA4 PO (12:02)
[2019-01-01] MEDS ORDERED: POLY17PO6 PO (12:03)
[2019-01-01] MEDS ORDERED: NIFE30TA23 PO (12:05)
[2019-01-01] MEDS ORDERED: PROT946L PO (12:12)
[2019-01-01] MEDS ORDERED: NEPH PO (12:13)
[2019-01-01] MEDS ORDERED: LEVO150T87 PO (12:14)
[2019-01-01] MEDS ORDERED: ACET-141 PO (12:16)
--- NOTE | 2019-01-01 12:21 | CONS ---
Assessment/Plan Assessment/Plan Assessment/Plan (Daily) 1, ESRD on HD, missed HD with mild fluid overload 2. Severe sympatomatic anemia 3. H/o HTN 4. H/o HL 5. Anemia of ESRD 6. H/o CHF 7. h/o LE neuropathy 8. H/o restoless leg syndrome Plan: Seen on Med/surge floor plan for 1 U PRBC today will plan for another 1 unit PRBC transfusion in AM with HD pt regular schedule for HD is Fri, , Friday, next HD ordered for tomorrow morning with PRBC transfusion continue current medications Thanks for consultation, I will continue to follow up Consultation Date/Type/Reason Admit Date/Time Jan 01, 2019 at 08:14 Date of Consultation: Jan 01, 2019 Type of Consult NEPHROLOGY Reason for Consultation ESRD on HD, admitted with severe symptomatic anemia, missed HD Requesting Provider: LOREN ROSE MD Date/Time of Note DATE: 01/01/19 TIME: 12:21 Hx of Present Illness 88 F with PMHx of HTN, HL, ESRD on HD, started on HD on last admission, Restless leg syndrome, CHF< LE neuropathy- who had a Hb 6.5 in SNF- pt has been gettign epogen max dose for her Anemia in dialysis unit, she was feeling weak, tired and SOB- she gets admitted for symptomatic anemia, missed HD and Renal has been consulted for maintainable HD. no SOB, no chest pain, no nausea, no vomiting, no abdominal pain pt has Right chest permacath in place Constitutional: poor po Eyes: no complaints ENT: no complaints Respiratory: shortness of breath Cardiovascular: no complaints Gastrointestinal: no complaints Genitourinary: no complaints Musculoskeletal: bone/joint pain, neck pain, restricted range of motion Skin: no complaints Neurologic: no complaints Endocrine: no complaints Lymphatic: no complaints Psychological: no complaints Immunologic: no complaints Past Medical History Medical History: high cholesterol, renal disease, other Home Meds Reported Medications Acetaminophen* (Acetaminophen*) 500 MG Extra Strength Tablet, 500 MG PO Q6 PRN for PAIN AND OR ELEVATED TEMP, TAB 01/01/19 Levothyroxine Sodium* (Synthroid*) 150 Mcg Tablet, 150 MCG PO BEFORE BREAKFAST, #30 TAB 01/01/19 Multivit/Ca Carb/B Cmplx/Fa* (Sierra-Tarsha*) 1 Tab Tab, 1 TAB PO DAILY, TAB 01/01/19 Protein Supplement (Promod) 946 Ml Liquid, 30 ML PO BID FOR SUPPLEMEMT 01/01/19 Nifedipine* (Nifedipine ER*) 30 Mg Tablet.sa, 30 MG PO DAILY, TAB.SA FOR HTN HOLD IF SBP < 110, OR IF HR IS < 60 01/01/19 Polyethylene Glycol* (Miralax*) 17 Gm Powd.pack, 17 GM PO DAILY, #30 PACKET 01/01/19 Metoprolol Tartrate* (Lopressor*) 25 Mg Tablet, 25 MG PO BID, #60 TAB FOR HTN HOLD IF SBP IS <110 OR HR IS < 60 01/01/19 Ipratropium-Albuterol (Ipratropium-Albuterol) 0.5-3 Mg/3 Ml Ampul.neb, 3 ML INHALATION Q4 PRN for SHORTNESS OF BREATH, #30 VIAL 01/01/19 Epoetin Larry (Epogen) 3,000 Units/Ml Soln, 3000 UNITS SC, VIAL EVERY FRIDAY, FRIDAY AND Friday01/01/19 Docusate Sodium* (Docusate Sodium*) 100 Mg Capsule, 100 MG PO BID, #60 CAP 01/01/19 Diphenhydramine Hcl* (Benadryl*) 25 Mg Cap, 25 MG PO Q6H PRN for ITCHING, CAP 01/01/19 Clopidogrel Bisulfate* (Clopidogrel Bisulfate*) 75 Mg Tablet, 75 MG PO DAILY, #30 TAB 11/25/18 Pantoprazole* (Pantoprazole*) 40 Mg Tablet.dr, 40 MG PO AC BREAKFAST, TAB 11/25/18 Guaifenesin-Dextromethorphan* (Robitussin* DM) 100MG/10MG/5ML Syrup, 10 ML PO Q4H PRN for COUGH, ML 02/15/18 Gabapentin* (Gabapentin*) 300 Mg Capsule, 300 MG PO Q12, #60 CAP 02/15/18 Bisacodyl* (Bisacodyl*) 10 Mg Supp, 10 MG SC DAILY, SUPP FOR CONSTIPATION 02/15/18 Atorvastatin Calcium (Atorvastatin Calcium) 10 Mg Tablet, 10 MG PO QHS, #30 TAB 02/15/18 Discontinued Reported Medications Furosemide* (Furosemide*) 40 Mg Tablet, 40 MG PO BID, TAB HOLD FOR SBP<110 11/25/18 Mupirocin* (Bactroban*) 2% -22 Gram Oint...g., 1 APPLIC TOP BID, #1 TUB SITE OF APPLICATION: 11/25/18 Prednisone* (Prednisone*) 20 Mg Tab, 40 MG PO DAILY, TAB FOR 4 DAYS,START DATE 11/23/18, END DATE 11/27/18 11/25/18 Pramipexole* (Mirapex*) 0.5 Mg Tablet, 0.5 MG PO QHS, TAB 02/15/18 Hydralazine Hcl* (Hydralazine Hcl*) 25 Mg Tab, 25 MG PO Q6H PRN for FOR BP>160/95, #60 TAB 02/15/18 Tamsulosin Hcl* (Flomax*) 0.4 Mg Cap.er.24h, 0.4 MG PO DAILY, CAP 02/15/18 Ferrous Sulfate* (Ferrous Sulfate*) 325 Mg Tabec, 325 MG PO DAILY, TAB 02/15/18 Docusate Sodium* (Docusate Sodium*) 100 Mg Capsule, 100 MG PO BID, #60 CAP 02/15/18 Aspirin* (Aspirin* EC) 325 Mg Tab, 325 MG PO DAILY, TAB 02/15/18 Amiodarone Hcl* (Amiodarone Hcl*) 200 Mg Tablet, 200 MG PO DAILY, #30 TAB HOLD IF APICAL PULSE IS<60 02/15/18 Allopurinol* (Allopurinol*) 100 Mg Tablet, 200 MG PO DAILY, TAB 02/15/18 Acetaminophen* (Acetaminophen*) 325 Mg Tablet, 500 MG PO Q6 PRN for MILD PAIN LEVEL 1-3, #30 TAB AND FOR FEVER 02/15/18 Medications Current Medications Ondansetron HCl (Zofran Inj) 4 mg BRIDGE ORDER PRN IV NAUSEA/VOMITING; Start 01/01/19 at 08:30; Stop 01/02/19 at 08:29 Acetaminophen (Tylenol Tab) 650 mg ER BRIDGE PRN PO .MILD PAIN 1-3 OR TEMP; Start 01/01/19 at 08:30; Stop 01/02/19 at 08:29 Allergies: Coded Allergies: aspirin (Verified Allergy, Unknown, 11/25/18) Past Surgical History Past Surgical Hx: appendectomy, cholecystectomy, other Family History Significant Family History: no pertinent family hx Social History Alcohol Use: none Smoking Status: Never smoker Drug Use: none Exam/Review of Systems Exam Vitals Vital Signs Date Temp Pulse Resp B/P (MAP) Pulse Ox O2 O2 Flow FiO2 Time Delivery Rate 01/01/19 97.7 80 20 132/59 97 Room Air 09:43 (83) Constitutional: alert Psych: no complaints Head: normocephalic Eyes: nl conjunctiva, other (pale conjunctive ) ENMT: nl external ears & nose Neck: supple, non-tender Respiratory: clear to auscultation, normal air movement Cardiovascular: regular rate and rhythm, nl pulses Gastrointestinal: soft, non-tender Musculoskeletal: muscle weakness, swelling Extremities: normal pulses 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: 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 Skin: nl turgor Lymph: nl lymph nodes Results Result Diagram: 01/01/1928 01/01/1928 Results 24hrs Laboratory Tests Test 01/01/19 08:28 White Blood Count 11.9 #H Red Blood Count 2.48 L Hemoglobin 7.4 L Hematocrit 23.5 L Mean Corpuscular Volume 94.8 Mean Corpuscular Hemoglobin 29.8 Mean Corpuscular Hemoglobin Concent 31.5 L Red Cell Distribution Width 16.5 H Platelet Count 106 #L Mean Platelet Volume 10.2 Immature Granulocytes % 1.000 H Neutrophils % 65.2 Lymphocytes % 18.9 Monocytes % 10.0 Eosinophils % 4.5 Basophils % 0.4 Nucleated Red Blood Cells % 0.0 Immature Granulocytes # 0.120 H Neutrophils # 7.8 H Lymphocytes # 2.3 Monocytes # 1.2 H Eosinophils # 0.5 Basophils # 0.1 Nucleated Red Blood Cells # 0.0 Prothrombin Time 24.1 #H Prothrombin Time Ratio 1.9 INR International Normalized Ratio 2.15 Activated Partial Thromboplast Time 29.8 Sodium Level 141 Potassium Level 3.7 Chloride Level 105 Carbon Dioxide Level 30 Anion Gap 6 Blood Urea Nitrogen 33 H Creatinine 3.62 H Est Glomerular Filtrat Rate mL/min Glucose Level 102 Calcium Level 9.1 Total Bilirubin 0.2 Direct Bilirubin 0.00 Indirect Bilirubin 0.2 Aspartate Amino Transf (AST/SGOT) 24 Alanine Aminotransferase (ALT/SGPT) 17 Alkaline Phosphatase 99 Troponin I 0.021 Total Protein 6.7 Albumin 3.6 Globulin 3.10 Albumin/Globulin Ratio 1.16 Medications Medication Current Medications Ondansetron HCl (Zofran Inj) 4 mg BRIDGE ORDER PRN IV NAUSEA/VOMITING; Start 01/01/19 at 08:30; Stop 01/02/19 at 08:29 Acetaminophen (Tylenol Tab) 650 mg ER BRIDGE PRN PO .MILD PAIN 1-3 OR TEMP; Start 01/01/19 at 08:30; Stop 01/02/19 at 08:29 GI HARTMAN MD Jan 01, 2019 12:21
[2019-01-01] MEDS ORDERED: SOD CHLORIDE 0.9% 250 ML IV* ONE (12:24)
[2019-01-01] MEDS ORDERED: ALBUMIN HUMAN 25% 50 ML IV PRN (12:30)
[2019-01-01] MEDS ORDERED: HEPARIN 1000 UNITS/ML 10 ML INJ CATHETER SCH (12:30)
[2019-01-01] MEDS ORDERED: SODIUM CHLORIDE 0.9% 1L BAG IV PRN (12:30)
--- NOTE | 2019-01-01 13:02 | NUR ---
CALLED [facility] TO SCHEDULE HD FOR [facility] 01/02 @ 0700. SPOKED TO KRISTINA. CONFIRMATION # [id number]
[2019-01-01 14:46] VITALS: BP 130/60; PULSE 82; RESP 18
--- NOTE | 2019-01-01 15:05 | HP ---
Date/Time of Note Date/Time of Note DATE: 01/01/19 TIME: 15:03 Assessment/Plan VTE Prophylaxis SCD applied (from Nsg): Yes Pharmacological prophylaxis: NA/contraindicated Pharm contraindication: thrombocytopenia Lines/Catheters IV Catheter Type (from Nrsg): Saline Lock Urinary Cath still in place: No Assessment/Plan Assessment/Plan -Symptomatic anemia requiring blood transfusion. Patient will receive blood transfusion. Continue to monitor hemoglobin and hematocrit, will obtain stool for OB. Dr. Lopez is asked to see patient in hematology consultation. Continue Epogen. -Hemodialysis dependent end-stage renal disease. Dr. Hill will be following from nephrology standpoint. -Chronic systolic and diastolic congestive heart failure. Continue telemetry monitoring. Dr. Iraheta is asked to see patient in cardiology consultation. -Coronary artery disease, continue Plavix -Hypertension -Hyperlipidemia -Paroxysmal atrial fibrillation, patient is currently in sinus rhythm -S/p Left lower lobe pneumonia -Hypothyroidism, continue Synthroid. -DNR status Further recommendations based on clinical course. Plan of care discussed with Dr. Olivier. Result Diagram: 01/01/19 0828 01/01/19 0828 Results 24hrs Laboratory Tests Test 01/01/19 08:28 White Blood Count 11.9 #H Red Blood Count 2.48 L Hemoglobin 7.4 L Hematocrit 23.5 L Mean Corpuscular Volume 94.8 Mean Corpuscular Hemoglobin 29.8 Mean Corpuscular Hemoglobin Concent 31.5 L Red Cell Distribution Width 16.5 H Platelet Count 106 #L Mean Platelet Volume 10.2 Immature Granulocytes % 1.000 H Neutrophils % 65.2 Lymphocytes % 18.9 Monocytes % 10.0 Eosinophils % 4.5 Basophils % 0.4 Nucleated Red Blood Cells % 0.0 Immature Granulocytes # 0.120 H Neutrophils # 7.8 H Lymphocytes # 2.3 Monocytes # 1.2 H Eosinophils # 0.5 Basophils # 0.1 Nucleated Red Blood Cells # 0.0 Prothrombin Time 24.1 #H Prothrombin Time Ratio 1.9 INR International Normalized Ratio 2.15 Activated Partial Thromboplast Time 29.8 Sodium Level 141 Potassium Level 3.7 Chloride Level 105 Carbon Dioxide Level 30 Anion Gap 6 Blood Urea Nitrogen 33 H Creatinine 3.62 H Est Glomerular Filtrat Rate mL/min Glucose Level 102 Calcium Level 9.1 Total Bilirubin 0.2 Direct Bilirubin 0.00 Indirect Bilirubin 0.2 Aspartate Amino Transf (AST/SGOT) 24 Alanine Aminotransferase (ALT/SGPT) 17 Alkaline Phosphatase 99 Troponin I 0.021 Total Protein 6.7 Albumin 3.6 Globulin 3.10 Albumin/Globulin Ratio 1.16 HPI/ROS Admit Date/Time Admit Date/Time Jan 01, 2019 at 08:14 Hx of Present Illness The patient is a 88-year-old female with history of systolic and diastolic izabela estive heart failure, aortic stenosis, paroxysmal atrial fibrillation and atrial flutter, hypertension, hyperlipidemia hypothyroidism and history of chronic kidney disease that progressed to end-stage renal disease and patient is currently on hemodialysis, history of COPD, anemia, gout, and depression. Patient presented from senior living facility for symptomatic anemia patient noticed to have hemoglobin of 6.5. Patient had a history of anemia of chronic disease and was on Epogen. During previous admission patient was evaluated for possible GI bleed, underwent EGD with notion of erosive gastritis and moderate duodenitis as well as hiatal hernia by Dr. Lewis. Patient was treated with PPI for gastritis and duodenitis, and and was treated with nystatin for Lissy esophagitis. Patient also underwent colonoscopy with polypectomy and notion of moderate diverticulosis. Prior to discharge patient hemoglobin was stable and patient was started on Plavix. During the examination patient is awake alert complains of generalized weakness and malaise denies any fever denies chills denies nausea and vomiting, denies chest pain denies shortness of breath. ROS 12 point review of systems is negative except for that mentioned in HPI PMH/Family/Social Past Medical History Medical History: congestive heart failure, coronary artery disease, high cholesterol, hypertension, renal disease Medications Current Medications Ondansetron HCl (Zofran Inj) 4 mg BRIDGE ORDER PRN IV NAUSEA/VOMITING; Start 01/01/19 at 08:30; Stop 01/02/19 at 08:29 Acetaminophen (Tylenol Tab) 650 mg ER BRIDGE PRN PO .MILD PAIN 1-3 OR TEMP; Start 01/01/19 at 08:30; Stop 01/02/19 at 08:29 Heparin Sodium (Porcine) (Heparin (1000 Units/ml)) 4,000 unit AFTER DIALYSIS CATHETER ; Start 01/01/19 at 12:30; Stop 01/01/19 at 23:59 Albumin Human 50 ml @ 100 mls/hr WITH DIALYSIS PRN IV SBP < 90 DURING DIALYSIS; Start 01/01/19 at 12:30; Stop 01/01/19 at 23:59 Sodium Chloride (NS) -To prime the dialy... DIRECTED FOR HD PRN IV HD; Start 01/01/19 at 12:30; Stop 01/01/19 at 23:59 Coded Allergies: aspirin (Verified Allergy, Unknown, 11/25/18) Past Surgical History Past Surgical Hx: appendectomy, cholecystectomy, other (Status post right ankle surgery, status post appendectomy, status post cholecystectomy)) Family History Significant Family History: other (CAD) Social History Alcohol Use: none Smoking Status: Never smoker Drug Use: none Exam/Review of Systems Vital Signs Vitals Vital Signs Date Temp Pulse Resp B/P (MAP) Pulse Ox O2 O2 Flow FiO2 Time Delivery Rate 01/01/19 98.0 82 18 130/60 90 Room Air 14:46 (83) Exam Constitutional: alert, oriented Head: normocephalic Neck: supple Respiratory: clear to auscultation Cardiovascular: regular rate and rhythm Gastrointestinal: soft, non-tender Musculoskeletal: nl extremities to inspection 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: nl mental status Skin: nl turgor Additional Comments Right chest permacath EDWAR VARGAS Jan 01, 2019 15:05
[2019-01-01 15:39] VITALS: Ht 157.5 cm; Wt 72.4 kg
[2019-01-01 17:10] VITALS: BP 140/64; PULSE 76; RESP 18
--- NOTE | 2019-01-01 17:12 | NUR ---
END OF SHIFT SUMMERY: PT IS ALERT, AND ORIENTED. BUT PT WAS VERY SLEEPY. PT STATED " I DID NOT SLEEP WELL LAST NIGH THAT'S WHY IM VERY SLEEPY". PT WAS HERE FOR LOW HGB 7.4 UNDER THE CARE OF DR. ROSE AND DR. HARTMAN NEPHRO. SHE CAME FROM [facility]. SHE IS A NEWLY DIAGNOSED DIALYSIS ACCDG TO THE PT. SCHEDULE OF DIALYSIS IS TTHSAT. ACCESS IS PERMACATH TO RIGHT ANT CHEST. DRESSING DRY AND INTACT. VITAL SIGNS STABLE. RM AIR. SKIN IS INTACT. PICTURE TAKEN. PT RECEIEVED 1 UNIT PRBC. SCHED FOR BLOOD TRANSFUSION WHILE HAVING HD [facility]. [facility] WAS CALLED. CONFIRMATION WAS AVAILABLE. PLEASE SEE DOCUMENTATION ABOVE. PT STILL VOIDING, INCONTINENT. PT WAS ENCOURAGED TO CALL FOR ASSISTANCE. CALL LIGHT WAS WITHIN REACH.
[2019-01-01] MEDS ORDERED: GUAIFENESIN/DM 5ML CUP PO PRN (18:00)
[2019-01-01] MEDS ORDERED: ALBUTEROL/IPRATROPIUM (NEB) 3 ML AMP INH PRN (18:00)
[2019-01-01 19:40] VITALS: BP 136/64; PULSE 85; RESP 20
[2019-01-01] MEDS: GABAPENTIN 300 MG CAP PO SCH (20:38)
[2019-01-01] MEDS: ATORVASTATIN 10 MG TAB PO SCH (20:38)
[2019-01-01] MEDS: DOCUSATE SODIUM 100 MG CAP PO SCH (20:38)
[2019-01-01] MEDS: METOPROLOL 25 MG TAB PO SCH (20:39)
[2019-01-01] MEDS ORDERED: NON-FORMULARY/PATIENT OWN MED (Protein Supplement (Promod) 30 ML) PO SCH (21:00)
--- NOTE | 2019-01-01 21:32 | CONS ---
DATE OF ADMISSION: 01/01/2019 DATE OF CONSULTATION: 01/01/2019 REASON FOR CONSULTATION: Congestive heart failure. REQUESTING PHYSICIAN: Dr. Loren Rose HISTORY OF PRESENT ILLNESS: Ms. Simon is an 88-year-old female well known to myself from prior hosp ital admission with a history of paroxysmal atrial fibrillation, atrial flutter, end-stage renal dise ase on hemodialysis, hypothyroidism, who presents with findings of anemia. Upon arrival, temperature 98.2, blood pressure 129/110, pulse 98, respiratory rate 16, satting 100%. The patient's labs were notable for white cell count 11.9, hemoglobin 7.4, platelet count of 106; sodium 141, potassium 3.7, creatinine 3.62, BUN 33, AST 24, ALT 17; troponin negative; INR of 2.15. The patient underwent elect rocardiogram revealing a sinus rhythm at this time at a rate of 77, normal axis, normal intervals, is olated PVC, associated PACs and nonspecific ST-T abnormalities. The patient has been admitted to the floor and at this time denies chest pain or shortness of breath. PAST MEDICAL HISTORY: As above in the HPI. The patient had last 2D echo in 09/2018 revealing EF of 60% to 65% with moderate aortic stenosis and mild to moderate mitral regurgitation. MEDICATIONS PRIOR TO ADMIT: 1. Plavix. 2. Epogen. 3. Lipitor. 4. Metoprolol. 5. Nifedipine. 6. Gabapentin. 7. Dulcolax. 8. Protonix. 9. Synthroid. 10. Multivite. MEDICATIONS CURRENTLY IN THE HOSPITAL: 1. Plavix. 2. Sierra-Tarsha. 3. Procardia. 4. MiraLax. 5. Synthroid. 6. Colace. 7. Metoprolol 25 mg p.o. b.i.d. 8. Lipitor 10 mg at bedtime. 9. Tylenol p.r.n. 10. Benadryl p.r.n. 11. Albumin. ALLERGIES: ASPIRIN. SOCIAL HISTORY: No current tobacco, EtOH or illicit drug use. FAMILY HISTORY: No history of sudden cardiac or early CAD. REVIEW OF SYSTEMS: As above in the HPI. CONSTITUTIONAL: No fevers or chills. PULMONARY: Shortness of breath. CARDIOVASCULAR: Congestive heart failure, diastolic. GASTROINTESTINAL: No vomiting. GENITOURINARY: No hematuria. End-stage renal disease. MUSCULOSKELETAL: Degenerative joint disease. PHYSICAL EXAMINATION: VITAL SIGNS: Temperature 98, blood pressure 140/64, pulse 76, respiratory rate 18, satting 95%. GENERAL: The patient is alert, awake. No acute distress. NECK: JVP approximately 9 cm of water. CHEST: Decreased breath sounds at the bases bilaterally. HEART: Regular rate and rhythm. Normal S1, S2. A I/ systolic murmur. Nondisplaced PMI. ABDOMEN: Positive bowel sounds. Soft. EXTREMITIES: A 1+ edema bilaterally, 1+ pulses bilateral posterior tibial. LABORATORY DATA: As above in the HPI. No further labs for my review at this time. IMAGING STUDIES: As above in the HPI. No imaging studies for my review at this time. ELECTROCARDIOGRAM: As above in the HPI. No further electrocardiograms for my review at this time. IMPRESSION: 1. Congestive heart failure exacerbation, diastolic, acute on chronic by most recent echo from 10/13 18 revealing an EF of 60% to 65%. 2. Abnormal electrocardiogram, assess for acute coronary syndrome. 3. Coagulopathy. 4. History of paroxysmal atrial fibrillation, atrial flutter. 5. Hypertension, under reasonable control. 6. Chronic kidney disease, on hemodialysis. 7. Anemia. 8. Thrombocytopenia. RECOMMENDATIONS: 1. At this time, we would transfuse the patient with packed RBCs, following hemoglobin closely. 2. We will recheck the patient's INR which has been found to be elevated. The patient has been on s ystemic anticoagulation, and therefore, we will correct. The patient is in sinus rhythm at this time . 3. We will thereafter continue the patient's Plavix as tolerated, following platelet count closely. The patient had no thromboembolic events in the setting of atrial fibrillation. We will continue th e patient's baseline Procardia and metoprolol, following blood pressure closely. 4. Continue the patient's baseline statin. 5. Check serial EKGs to assess for any significant ongoing changes, thus, a repeat EKG in the [facility], EKG for any complaints of chest pain or change in rhythm, and we will complete a rule-out myocardi al infarction to assure that the patient's EKG abnormalities are chronic in nature and not due to any recent acute coronary syndromes in the setting of severe anemia. 6. Hemodialysis for volume removal. Thank you for allowing me to take part in the care of this patient. I will continue to follow very c losely with you, with further recommendations to be made as the patient progresses through inpatient hospital clinical course. Dictated By: ALVINA PALMER/ELISEO Conf#: [id number] DID#: [id number] CC: LOREN ROSE MD;*EndCC*
[2019-01-02] VITALS (17 sets, daily range): BP systolic 101–138; BP diastolic 49–63; PULSE 63–77; RESP 14–18
--- NOTE | 2019-01-02 06:06 | NUR ---
EOSS: PATIENT HERE FOR BT. SECOND UNIT OF PRBC WILL BE GIVEN DURING DIALYSIS. STABLE DURING SHIFT. CALLED JOSUE FROM [facility] GAVE CONFIRMATION NUMBER FOR DIALYSIS TODAY [phone]. PATIENT/FAMILY MADE AWARE OF SECOND UNIT TO BE GIVEN DURING DIALYSIS. PATIENT HAS RIGHT CHEST PERMACATH WITH INTACT DRESSING. PATIENT IS OLIGURIC. NEEDS MET & ATTENDED. WILL CONTINUE WITH POC.
[2019-01-02] MEDS: LEVOTHYROXINE 150 MCG TAB PO SCH (06:28)
[2019-01-02] MEDS: PANTOPRAZOLE (EC) 40 MG TAB PO SCH (06:29)
[2019-01-02] MEDS ORDERED: SODIUM CHLORIDE 0.9% 1L BAG IV PRN (07:00)
[2019-01-02] MEDS: METOPROLOL 25 MG TAB PO SCH ×2 (09:00→20:05)
[2019-01-02] MEDS: NIFEdipine (XL) 30 MG TAB PO SCH (09:00)
--- NOTE | 2019-01-02 11:42 | CONS ---
Consultation Date/Type/Reason Admit Date/Time Jan 01, 2019 at 08:14 Initial Consult Date 01/01/19 Type of Consult NEPHROLOGY Requesting Provider: LOREN ROSE MD Date/Time of Note DATE: 01/02/19 TIME: 11:42 Exam/Review of Systems Exam Vitals Vital Signs Date Temp Pulse Resp B/P (MAP) Pulse Ox O2 O2 Flow FiO2 Time Delivery Rate 01/02/19 98.2 64 14 123/56 98 Room Air 07:24 (78) 01/02/19 21 02:08 Intake and Output 01/01/19 01/01/19 01/02/19 1515:00 23:00 07:00 IntakeIntake Total 80 ml 200 ml 240 ml OutputOutput Total 60 ml BalanceBalance 80 ml 200 ml 180 ml Results Result Diagram: 01/02/19 0443 01/02/193 Results 24hrs Laboratory Tests Test 01/02/19 00:33 01/02/19 01:08 01/02/19 04:43 Creatine Kinase 76 67 Creatine Kinase Index 1.2 1.9 Creatinine Kinase MB (Mass) 0.90 1.26 Troponin I 0.016 < 0.012 Urine Color YELLOW Urine Clarity TURBID A Urine pH 7.0 Urine Specific [place] 1.012 Urine Ketones TRACE A Urine Nitrite NEGATIVE Urine Bilirubin NEGATIVE Urine Urobilinogen 2+ H Urine Leukocyte Esterase 2+ H Urine Microscopic RBC 23 H Urine Microscopic WBC > 182 H Urine Squamous Epithelial Cells FEW Urine Amorphous Crystals FEW A Urine Bacteria FEW A Urine Mucus MANY A Urine Hemoglobin 1+ H Urine Glucose NEGATIVE Urine Total Protein 2+ H White Blood Count 9.4 # Red Blood Count 2.62 L Hemoglobin 8.0 L Hematocrit 25.1 L Mean Corpuscular Volume 95.8 Mean Corpuscular Hemoglobin 30.5 Mean Corpuscular Hemoglobin Concent 31.9 L Red Cell Distribution Width 15.9 H Platelet Count 109 L Mean Platelet Volume 10.1 Immature Granulocytes % 0.700 H Neutrophils % 59.8 Lymphocytes % 22.4 Monocytes % 10.9 Eosinophils % 5.7 Basophils % 0.5 Nucleated Red Blood Cells % 0.0 Immature Granulocytes # 0.070 H Neutrophils # 5.6 Lymphocytes # 2.1 Monocytes # 1.0 H Eosinophils # 0.5 Basophils # 0.1 Nucleated Red Blood Cells # 0.0 Prothrombin Time 13.2 # Prothrombin Time Ratio 1.0 INR International Normalized Ratio 0.99 Sodium Level 143 Potassium Level 4.1 Chloride Level 107 Carbon Dioxide Level 27 Anion Gap 9 Blood Urea Nitrogen 43 H Creatinine 4.03 H Est Glomerular Filtrat Rate mL/min Glucose Level 81 Calcium Level 8.7 Phosphorus Level 4.8 Magnesium Level 2.0 Medications Medication Current Medications Sodium Chloride (NS) -To prime the dialy... DIRECTED FOR HD PRN IV HD; Start 01/02/19 at 07:00 Acetaminophen (Tylenol Tab) 500 mg Q6 PRN PO MILD PAIN(1-3)OR ELEVATED TEMP; Start 01/01/19 at 18:00 Atorvastatin Calcium (Lipitor) 10 mg QHS PO Last administered on 01/01/19 20:38; Admin Dose 10 MG; Start 01/01/19 at 21:00 Clopidogrel Bisulfate (plaVIX) 75 mg DAILY PO ; Start 01/02/19 at 09:00 Diphenhydramine HCl (Benadryl) 25 mg Q6H PRN PO ITCHING; Start 01/01/19 at 18:00 Docusate Sodium (Colace) 100 mg BID PO Last administered on 01/01/19 20:38; Admin Dose 100 MG; Start 01/01/19 at 21:00 Gabapentin (Neurontin) 300 mg Q12 PO Last administered on 01/01/19at 20:38; Admin Dose 300 MG; Start 01/01/19 at 21:00 Guaifenesin/ Dextromethorphan (Robitussin Dm Liquid Cup) 10 ml Q4H PRN PO COUGH; Start 01/01/19 at 18:00 Albuterol/ Ipratropium (Duoneb) 3 ml Q4H RESP THERAPY PRN INH SHORTNESS OF BREATH; Start 01/01/19 at 18:00 Levothyroxine Sodium (Synthroid) 150 mcg BEFORE BREAKFAST PO Last administered on 01/02/19at 06:28; Admin Dose 150 MCG; Start 01/02/19 at 07:00 Metoprolol Tartrate (Lopressor) 25 mg BID PO Last administered on 01/01/19at 20:39; Admin Dose 25 MG; Start 01/01/19 at 21:00 Multivit/Ca Carb/ B Cmplx/FA/Prenat (Sierra-Tarsha) 1 tab DAILY PO ; Start 01/02/19 at 09:00 Nifedipine (Procardia Xl) 30 mg DAILY PO ; Start 01/02/19 at 09:00 Pantoprazole (Protonix Tab) 40 mg AC BREAKFAST PO Last administered on 01/02/19at 06:29; Admin Dose 40 MG; Start 01/02/19 at 07:20 Polyethylene Glycol (Miralax) 17 gm DAILY PO ; Start 01/02/19 at 09:00 Epoetin Larry (Epogen (Esrd)) 3,000 units AFTER DIALYSIS SC ; Start 01/01/19 at 18:30 GI HARTMAN MD Jan 02, 2019 11:42
--- NOTE | 2019-01-02 12:16 | PN ---
Date/Time of Note Date/Time of Note DATE: 01/02/19 TIME: 12:16 Assessment/Plan VTE Prophylaxis Risk score (from Ns)>0 risk: 6 SCD applied (from Ns): Yes Pharmacological prophylaxis: LMWH Lines/Catheters IV Catheter Type (from Nrs): Central Line Central line still needed: Yes Urinary Cath still in place: No Assessment/Plan Hospital Course -Symptomatic anemia requiring blood transfusion. Patient will receive blood transfusion. -Hemodialysis dependent end-stage renal disease -Chronic systolic and diastolic congestive heart failure -S/p Left lower lobe pneumonia -Hypothyroidism, continue Synthroid. -DNR status Result Diagram: 01/02/1944201/02/19442 Results 24hrs Laboratory Tests Test 01/02/19 00:33 01/02/19 01:08 01/02/19 04:43 Creatine Kinase 76 67 Creatine Kinase Index 1.2 1.9 Creatinine Kinase MB (Mass) 0.90 1.26 Troponin I 0.016 < 0.012 Urine Color YELLOW Urine Clarity TURBID A Urine pH 7.0 Urine Specific [place] 1.012 Urine Ketones TRACE A Urine Nitrite NEGATIVE Urine Bilirubin NEGATIVE Urine Urobilinogen 2+ H Urine Leukocyte Esterase 2+ H Urine Microscopic RBC 23 H Urine Microscopic WBC > 182 H Urine Squamous Epithelial Cells FEW Urine Amorphous Crystals FEW A Urine Bacteria FEW A Urine Mucus MANY A Urine Hemoglobin 1+ H Urine Glucose NEGATIVE Urine Total Protein 2+ H White Blood Count 9.4 # Red Blood Count 2.62 L Hemoglobin 8.0 L Hematocrit 25.1 L Mean Corpuscular Volume 95.8 Mean Corpuscular Hemoglobin 30.5 Mean Corpuscular Hemoglobin Concent 31.9 L Red Cell Distribution Width 15.9 H Platelet Count 109 L Mean Platelet Volume 10.1 Immature Granulocytes % 0.700 H Neutrophils % 59.8 Lymphocytes % 22.4 Monocytes % 10.9 Eosinophils % 5.7 Basophils % 0.5 Nucleated Red Blood Cells % 0.0 Immature Granulocytes # 0.070 H Neutrophils # 5.6 Lymphocytes # 2.1 Monocytes # 1.0 H Eosinophils # 0.5 Basophils # 0.1 Nucleated Red Blood Cells # 0.0 Prothrombin Time 13.2 # Prothrombin Time Ratio 1.0 INR International Normalized Ratio 0.99 Sodium Level 143 Potassium Level 4.1 Chloride Level 107 Carbon Dioxide Level 27 Anion Gap 9 Blood Urea Nitrogen 43 H Creatinine 4.03 H Est Glomerular Filtrat Rate mL/min Glucose Level 81 Calcium Level 8.7 Phosphorus Level 4.8 Magnesium Level 2.0 Subjective 24 Hr Interval Summary Free Text/Dictation Patient complain of dysuria Exam/Review of Systems Exam Vitals Vital Signs Date Temp Pulse Resp B/P (MAP) Pulse Ox O2 O2 Flow FiO2 Time Delivery Rate 01/02/19 65 18 118/49 97 Room Air 11:00 (72) 01/02/19 98.2 07:24 01/02/19 21 02:08 Intake and Output 01/01/19 01/01/19 01/02/19 1515:00 23:00 07:00 IntakeIntake Total 80 ml 200 ml 240 ml OutputOutput Total 60 ml BalanceBalance 80 ml 200 ml 180 ml Constitutional: well developed Head: normocephalic, atraumatic Neck: supple Respiratory: diminished breath sounds Cardiovascular: regular rate and rhythm Gastrointestinal: soft, non-tender Extremities: normal pulses Results Results 24hrs Laboratory Tests Test 01/02/19 00:33 01/02/19 01:08 01/02/19 04:43 Creatine Kinase 76 67 Creatine Kinase Index 1.2 1.9 Creatinine Kinase MB (Mass) 0.90 1.26 Troponin I 0.016 < 0.012 Urine Color YELLOW Urine Clarity TURBID A Urine pH 7.0 Urine Specific [place] 1.012 Urine Ketones TRACE A Urine Nitrite NEGATIVE Urine Bilirubin NEGATIVE Urine Urobilinogen 2+ H Urine Leukocyte Esterase 2+ H Urine Microscopic RBC 23 H Urine Microscopic WBC > 182 H Urine Squamous Epithelial Cells FEW Urine Amorphous Crystals FEW A Urine Bacteria FEW A Urine Mucus MANY A Urine Hemoglobin 1+ H Urine Glucose NEGATIVE Urine Total Protein 2+ H White Blood Count 9.4 # Red Blood Count 2.62 L Hemoglobin 8.0 L Hematocrit 25.1 L Mean Corpuscular Volume 95.8 Mean Corpuscular Hemoglobin 30.5 Mean Corpuscular Hemoglobin Concent 31.9 L Red Cell Distribution Width 15.9 H Platelet Count 109 L Mean Platelet Volume 10.1 Immature Granulocytes % 0.700 H Neutrophils % 59.8 Lymphocytes % 22.4 Monocytes % 10.9 Eosinophils % 5.7 Basophils % 0.5 Nucleated Red Blood Cells % 0.0 Immature Granulocytes # 0.070 H Neutrophils # 5.6 Lymphocytes # 2.1 Monocytes # 1.0 H Eosinophils # 0.5 Basophils # 0.1 Nucleated Red Blood Cells # 0.0 Prothrombin Time 13.2 # Prothrombin Time Ratio 1.0 INR International Normalized Ratio 0.99 Sodium Level 143 Potassium Level 4.1 Chloride Level 107 Carbon Dioxide Level 27 Anion Gap 9 Blood Urea Nitrogen 43 H Creatinine 4.03 H Est Glomerular Filtrat Rate mL/min Glucose Level 81 Calcium Level 8.7 Phosphorus Level 4.8 Magnesium Level 2.0 Medications Medication Current Medications Sodium Chloride (NS) -To prime the dialy... DIRECTED FOR HD PRN IV HD; Start 01/02/19 at 07:00 Acetaminophen (Tylenol Tab) 500 mg Q6 PRN PO MILD PAIN(1-3)OR ELEVATED TEMP; Start 01/01/19 at 18:00 Atorvastatin Calcium (Lipitor) 10 mg QHS PO Last administered on 01/01/19 20:38; Admin Dose 10 MG; Start 01/01/19 at 21:00 Clopidogrel Bisulfate (plaVIX) 75 mg DAILY PO ; Start 01/02/19 at 09:00 Diphenhydramine HCl (Benadryl) 25 mg Q6H PRN PO ITCHING; Start 01/01/19 at 18:00 Docusate Sodium (Colace) 100 mg BID PO Last administered on 01/01/19 20:38; Admin Dose 100 MG; Start 01/01/19 at 21:00 Gabapentin (Neurontin) 300 mg Q12 PO Last administered on 01/01/19 20:38; Admin Dose 300 MG; Start 01/01/19 at 21:00 Guaifenesin/ Dextromethorphan (Robitussin Dm Liquid Cup) 10 ml Q4H PRN PO COUGH; Start 01/01/19 at 18:00 Albuterol/ Ipratropium (Duoneb) 3 ml Q4H RESP THERAPY PRN INH SHORTNESS OF BREATH; Start 01/01/19 at 18:00 Levothyroxine Sodium (Synthroid) 150 mcg BEFORE BREAKFAST PO Last administered on 01/02/19 06:28; Admin Dose 150 MCG; Start 01/02/19 at 07:00 Metoprolol Tartrate (Lopressor) 25 mg BID PO Last administered on 01/01/19 20:39; Admin Dose 25 MG; Start 01/01/19 at 21:00 Multivit/Ca Carb/ B Cmplx/FA/Prenat ([place]-T[place]ha) 1 tab DAILY PO ; Start 01/02/19 at 09:00 Nifedipine (Procardia Xl) 30 mg DAILY PO ; Start 01/02/19 at 09:00 Pantoprazole (Protonix Tab) 40 mg AC BREAKFAST PO Last administered on 01/02/19at 06:29; Admin Dose 40 MG; Start 01/02/19 at 07:20 Polyethylene Glycol (Miralax) 17 gm DAILY PO ; Start 01/02/19 at 09:00 Epoetin Larry (Epogen (Esrd)) 3,000 units AFTER DIALYSIS SC ; Start 01/01/19 at 18:30 LAMONT BREWER Jan 02, 2019 12:16
[2019-01-02] MEDS: HEPARIN 1000 UNITS/ML 10 ML INJ CATHETER SCH (13:28)
--- NOTE | 2019-01-02 13:28 | CONS ---
Assessment/Plan Assessment/Plan Assessment/Plan (Daily) 1, ESRD on HD, missed HD with mild fluid overload ; HD today 2. Severe symptomatic anemia 3. H/o HTN 4. H/o HL 5. Anemia of ESRD 6. H/o CHF 7. h/o LE neuropathy 8. H/o restless leg syndrome Plan: 1 U PRBC today with HD another 1 unit PRBC transfusion with HD today pt regular schedule for HD is Fri, , Friday, next HD ordered for tomorrow morning with PRBC transfusion continue current medications will continue to follow up Patient seen in collaboration with Dr Hilda Hill. dw staff Consultation Date/Type/Reason Admit Date/Time Jan 01, 2019 at 08:14 Initial Consult Date 01/01/19 Type of Consult ONCOLOGY Reason for Consultation ESRD Requesting Provider: LOREN ROSE MD Date/Time of Note DATE: 01/02/19 TIME: 13:26 24 HR Interval Summary Free Text/Dictation getting HD now - seems comfortable no new issues reported last night dw staff Constitutional: requiring O2 Detailed Summary Eyes: no complaints ENT: no complaints Respiratory: no complaints Cardiovascular: no complaints Gastrointestinal: no complaints Genitourinary: no complaints Musculoskeletal: other (weakness) Exam/Review of Systems Exam Vitals Vital Signs Date Temp Pulse Resp B/P (MAP) Pulse Ox O2 O2 Flow FiO2 Time Delivery Rate 01/02/19 73 13:00 01/02/19 18 118/49 97 Room Air 11:00 (72) 01/02/19 98.2 07:24 01/02/19 21 02:08 Intake and Output 01/01/19 01/01/19 01/02/19 1515:00 23:00 07:00 IntakeIntake Total 80 ml 200 ml 240 ml OutputOutput Total 60 ml BalanceBalance 80 ml 200 ml 180 ml Constitutional: alert, well developed Psych: nl mood/affect Head: normocephalic, atraumatic Eyes: EOMI, nl lids, nl sclera ENMT: nl external ears & nose Neck: non-tender Respiratory: crackles/rales (at bases bilaterally), diminished breath sounds Cardiovascular: nl pulses, other (s1s2) Gastrointestinal: soft, non-tender Musculoskeletal: nl extremities to inspection Extremities: normal pulses 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: nl speech, other (alert/awake) Skin: nl turgor Lymph: nontender Results Result Diagram: 01/02/19 0443 01/02/19 0443 Results 24hrs Laboratory Tests Test 01/02/19 00:33 01/02/19 01:08 01/02/19 04:38 01/02/19 04:43 Creatine Kinase 76 67 Creatine Kinase Index 1.2 1.9 Creatinine Kinase MB 0.90 1.26 (Mass) Troponin I 0.016 < 0.012 Urine Color YELLOW Urine Clarity TURBID A Urine pH 7.0 Urine Specific [place] 1.012 Urine Ketones TRACE A Urine Nitrite NEGATIVE Urine Bilirubin NEGATIVE Urine Urobilinogen 2+ H Urine Leukocyte Esterase 2+ H Urine Microscopic RBC 23 H Urine Microscopic WBC > 182 H Urine Squamous FEW Epithelial Cells Urine Amorphous Crystals FEW A Urine Bacteria FEW A Urine Mucus MANY A Urine Hemoglobin 1+ H Urine Glucose NEGATIVE Urine Total Protein 2+ H Hepatitis B Surface NEGATIVE Antigen White Blood Count 9.4 # Red Blood Count 2.62 L Hemoglobin 8.0 L Hematocrit 25.1 L Mean Corpuscular Volume 95.8 Mean Corpuscular 30.5 Hemoglobin Mean Corpuscular 31.9 L Hemoglobin Concent Red Cell Distribution 15.9 H Width Platelet Count 109 L Mean Platelet Volume 10.1 Immature Granulocytes % 0.700 H Neutrophils % 59.8 Lymphocytes % 22.4 Monocytes % 10.9 Eosinophils % 5.7 Basophils % 0.5 Nucleated Red Blood 0.0 Cells % Immature Granulocytes # 0.070 H Neutrophils # 5.6 Lymphocytes # 2.1 Monocytes # 1.0 H Eosinophils # 0.5 Basophils # 0.1 Nucleated Red Blood 0.0 Cells # Prothrombin Time 13.2 # Prothrombin Time Ratio 1.0 INR International 0.99 Normalized Ratio Sodium Level 143 Potassium Level 4.1 Chloride Level 107 Carbon Dioxide Level 27 Anion Gap 9 Blood Urea Nitrogen 43 H Creatinine 4.03 H Est Glomerular Filtrat Rate mL/min Glucose Level 81 Calcium Level 8.7 Phosphorus Level 4.8 Magnesium Level 2.0 Test 01/02/19 12:13 Creatine Kinase 68 Creatine Kinase Index 2.1 Creatinine Kinase MB 1.42 (Mass) Troponin I < 0.012 Medications Medication Current Medications Sodium Chloride (NS) -To prime the dialy... DIRECTED FOR HD PRN IV HD; Start 01/02/19 at 07:00 Acetaminophen (Tylenol Tab) 500 mg Q6 PRN PO MILD PAIN(1-3)OR ELEVATED TEMP; S tart 01/01/19 at 18:00 Atorvastatin Calcium (Lipitor) 10 mg QHS PO Last administered on 01/01/19at 20:3 8; Admin Dose 10 MG; Start 01/01/19 at 21:00 Clopidogrel Bisulfate (plaVIX) 75 mg DAILY PO ; Start 01/02/19 at 09:00 Diphenhydramine HCl (Benadryl) 25 mg Q6H PRN PO ITCHING; Start 01/01/19 at 18:00 Docusate Sodium (Colace) 100 mg BID PO Last administered on 01/01/19 20:38; Admin Dose 100 MG; Start 01/01/19 at 21:00 Gabapentin (Neurontin) 300 mg Q12 PO Last administered on 01/01/19 20:38; Admin Dose 300 MG; Start 01/01/19 at 21:00 Guaifenesin/ Dextromethorphan (Robitussin Dm Liquid Cup) 10 ml Q4H PRN PO COUGH; Start 01/01/19 at 18:00 Albuterol/ Ipratropium (Duoneb) 3 ml Q4H RESP THERAPY PRN INH SHORTNESS OF BREATH; Start 01/01/19 at 18:00 Levothyroxine Sodium (Synthroid) 150 mcg BEFORE BREAKFAST PO Last administered on 01/02/19at 06:28; Admin Dose 150 MCG; Start 01/02/19 at 07:00 Metoprolol Tartrate (Lopressor) 25 mg BID PO Last administered on 01/01/19at 20:39; Admin Dose 25 MG; Start 01/01/19 at 21:00 Multivit/Ca Carb/ B Cmplx/FA/Prenat (Sierra-[place]ha) 1 tab DAILY PO ; Start 01/02/19 at 09:00 Nifedipine (Procardia Xl) 30 mg DAILY PO ; Start 01/02/19 at 09:00 Pantoprazole (Protonix Tab) 40 mg AC BREAKFAST PO Last administered on 01/02/19at 06:29; Admin Dose 40 MG; Start 01/02/19 at 07:20 Polyethylene Glycol (Miralax) 17 gm DAILY PO ; Start 01/02/19 at 09:00 Epoetin Larry (Epogen (Esrd)) 3,000 units AFTER DIALYSIS SC ; Start 01/01/19 at 18:30 Heparin Sodium (Porcine) (Heparin (1000 Units/ml)) 3,700 unit AFTER DIALYSIS CATHETER ; Start 01/02/19 at 13:00 KATIE MENDEZ Jan 02, 2019 13:28
[2019-01-02] MEDS: GABAPENTIN 300 MG CAP PO SCH ×2 (14:21→20:03)
[2019-01-02] MEDS: MULTIVIT/CA CARB/B CMPLX/FA TAB PO SCH (14:23)
[2019-01-02] MEDS: POLYETHYLENE GLYCOL 17 GM PACKET PO SCH (14:23)
[2019-01-02] MEDS: DOCUSATE SODIUM 100 MG CAP PO SCH ×2 (14:24→20:03)
[2019-01-02] MEDS: CLOPIDOGREL 75 MG TAB PO SCH (14:24)
--- NOTE | 2019-01-02 15:26 | CONS ---
Assessment/Plan Assessment/Plan Hospital Course (Demo Recall) IMPRESSION: 1. Congestive heart failure exacerbation, diastolic, acute on chronic by most recent echo from 09/2018 revealing an EF of 60% to 65%. 2. Abnormal electrocardiogram, assess for acute coronary syndrome. 3. Coagulopathy. 4. History of paroxysmal atrial fibrillation, atrial flutter. 5. Hypertension, under reasonable control. 6. Chronic kidney disease, on hemodialysis. 7. Anemia. 8. Thrombocytopenia. Recc: -Continue BB/procardia -follow Hgb s/p transfusion -Continue plavix as tolerated only -Continue statin -HD for volume removal Consultation Date/Type/Reason Admit Date/Time Jan 01, 2019 at 08:14 Initial Consult Date 01/01/19 Type of Consult Cardiology Reason for Consultation CHF Requesting Provider: LOREN ROSE MD Date/Time of Note DATE: 01/02/19 TIME: 15:21 Exam/Review of Systems Vital Signs Vitals Vital Signs Date Temp Pulse Resp B/P (MAP) Pulse Ox O2 O2 Flow FiO2 Time Delivery Rate 01/02/19 76 18 110/55 98 Room Air 14:45 (73) 01/02/19 98.2 07:24 01/02/19 21 02:08 Intake and Output 01/01/19 01/01/19 01/02/19 1515:00 23:00 07:00 IntakeIntake Total 80 ml 200 ml 240 ml OutputOutput Total 60 ml BalanceBalance 80 ml 200 ml 180 ml Exam Exam Review of Systems: CONSTITUTIONAL: No fevers, chills. PULMONARY: No sob CARDIOVASCULAR: No chest pain/palpitations GASTROINTESTINAL: No nausea/vomiting. GENITOURINARY: No hematuria/dysuria. MUSCULOSKELETAL: No myagias/arthalgias. PSYCHIATRIC: The patient denies depression. NEUROLOGIC: No weakness Constitutional: alert Psych: no complaints Head: normocephalic ENMT: mucosa pink and moist Neck: supple, jvd (9 cm water) Respiratory: diminished breath sounds (at bases/B) Cardiovascular: regular rate and rhythm Gastrointestinal: soft, non-tender Musculoskeletal: muscle tone (normal) Extremities: edema (trace/B) 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: other (No focal ldeficits) Labs Result Diagram: 01/02/193 01/02/19 0443 Results 24hrs Laboratory Tests Test 01/02/19 00:33 01/02/19 01:08 01/02/19 04:38 01/02/19 04:43 Creatine Kinase 76 67 Creatine Kinase Index 1.2 1.9 Creatinine Kinase MB 0.90 1.26 (Mass) Troponin I 0.016 < 0.012 Urine Color YELLOW Urine Clarity TURBID A Urine pH 7.0 Urine Specific [place] 1.012 Urine Ketones TRACE A Urine Nitrite NEGATIVE Urine Bilirubin NEGATIVE Urine Urobilinogen 2+ H Urine Leukocyte Esterase 2+ H Urine Microscopic RBC 23 H Urine Microscopic WBC > 182 H Urine Squamous FEW Epithelial Cells Urine Amorphous Crystals FEW A Urine Bacteria FEW A Urine Mucus MANY A Urine Hemoglobin 1+ H Urine Glucose NEGATIVE Urine Total Protein 2+ H Hepatitis B Surface NEGATIVE Antigen White Blood Count 9.4 # Red Blood Count 2.62 L Hemoglobin 8.0 L Hematocrit 25.1 L Mean Corpuscular Volume 95.8 Mean Corpuscular 30.5 Hemoglobin Mean Corpuscular 31.9 L Hemoglobin Concent Red Cell Distribution 15.9 H Width Platelet Count 109 L Mean Platelet Volume 10.1 Immature Granulocytes % 0.700 H Neutrophils % 59.8 Lymphocytes % 22.4 Monocytes % 10.9 Eosinophils % 5.7 Basophils % 0.5 Nucleated Red Blood 0.0 Cells % Immature Granulocytes # 0.070 H Neutrophils # 5.6 Lymphocytes # 2.1 Monocytes # 1.0 H Eosinophils # 0.5 Basophils # 0.1 Nucleated Red Blood 0.0 Cells # Prothrombin Time 13.2 # Prothrombin Time Ratio 1.0 INR International 0.99 Normalized Ratio Sodium Level 143 Potassium Level 4.1 Chloride Level 107 Carbon Dioxide Level 27 Anion Gap 9 Blood Urea Nitrogen 43 H Creatinine 4.03 H Est Glomerular Filtrat Rate mL/min Glucose Level 81 Calcium Level 8.7 Phosphorus Level 4.8 Magnesium Level 2.0 Test 01/02/19 12:13 Creatine Kinase 68 Creatine Kinase Index 2.1 Creatinine Kinase MB 1.42 (Mass) Troponin I < 0.012 Medications Medications Current Medications Sodium Chloride (NS) -To prime the dialy... DIRECTED FOR HD PRN IV HD; Start 01/02/19 at 07:00 Acetaminophen (Tylenol Tab) 500 mg Q6 PRN PO MILD PAIN(1-3)OR ELEVATED TEMP; Start 01/01/19 at 18:00 Atorvastatin Calcium (Lipitor) 10 mg QHS PO Last administered on 01/01/19 20:38; Admin Dose 10 MG; Start 01/01/19 at 21:00 Clopidogrel Bisulfate (plaVIX) 75 mg DAILY PO Last administered on 01/02/19 14:24; Admin Dose 75 MG; Start 01/02/19 at 09:00 Diphenhydramine HCl (Benadryl) 25 mg Q6H PRN PO ITCHING; Start 01/01/19 at 18:00 Docusate Sodium (Colace) 100 mg BID PO Last administered on 01/02/19 14:24; Admin Dose 100 MG; Start 01/01/19 at 21:00 Gabapentin (Neurontin) 300 mg Q12 PO Last administered on 01/02/19 14:21; Admin Dose 300 MG; Start 01/01/19 at 21:00 Guaifenesin/ Dextromethorphan (Robitussin Dm Liquid Cup) 10 ml Q4H PRN PO COUGH; Start 01/01/19 at 18:00 Albuterol/ Ipratropium (Duoneb) 3 ml Q4H RESP THERAPY PRN INH SHORTNESS OF BREATH; Start 01/01/19 at 18:00 Levothyroxine Sodium (Synthroid) 150 mcg BEFORE BREAKFAST PO Last administered on 01/02/19 06:28; Admin Dose 150 MCG; Start 01/02/19 at 07:00 Metoprolol Tartrate (Lopressor) 25 mg BID PO Last administered on 01/01/19 20:39; Admin Dose 25 MG; Start 01/01/19 at 21:00 Multivit/Ca Carb/ B Cmplx/FA/Prenat ([place]) 1 tab DAILY PO Last administered on 01/02/19 14:23; Admin Dose 1 TAB; Start 01/02/19 at 09:00 Nifedipine (Procardia Xl) 30 mg DAILY PO ; Start 01/02/19 at 09:00 Pantoprazole (Protonix Tab) 40 mg AC BREAKFAST PO Last administered on 01/02/19 06:29; Admin Dose 40 MG; Start 01/02/19 at 07:20 Polyethylene Glycol (Miralax) 17 gm DAILY PO Last administered on 01/02/19 14:23; Admin Dose 17 GM; Start 01/02/19 at 09:00 Epoetin Larry (Epogen (Esrd)) 3,000 units AFTER DIALYSIS SC ; Start 01/01/19 at 18:30 Heparin Sodium (Porcine) (Heparin (1000 Units/ml)) 3,700 unit AFTER DIALYSIS CATHETER Last administered on 01/02/19at 13:28; Admin Dose 3,700 UNIT; Start 01/02/19 at 13:00 ALVINA GARCIA Jan 02, 2019 15:26
[2019-01-02] MEDS: ACETAMINOPHEN 500 MG TAB PO PRN ×2 (15:46→20:51)
[2019-01-02] MEDS: EPOETIN 3000 UNITS/1 ML INJ (ESRD) SC SCH (16:45)
--- NOTE | 2019-01-02 19:42 | NUR ---
RN NOTES =alert oriented had Dialysis today and tolerated the procedure ,meds given ,. patient diet tolerated no n/v..
[2019-01-02] MEDS: ATORVASTATIN 10 MG TAB PO SCH (20:03)
[2019-01-02] MEDS: DIPHENHYDRAMINE 25 MG CAP PO PRN (20:52)
[2019-01-03 01:49] VITALS: BP 127/61; PULSE 67; RESP 18
--- NOTE | 2019-01-03 06:39 | NUR ---
EOSS Patient alert, oriented able to sleep through the night. Vital sign stable no respiratory distress. Assist patient in repositioning. Restless leg syndrome relieved with Garbapentin. Diet tolerated, all needs attended, keep patient and clean. Call light is within reach.
[2019-01-03] MEDS: LEVOTHYROXINE 150 MCG TAB PO SCH (06:59)
[2019-01-03] MEDS: PANTOPRAZOLE (EC) 40 MG TAB PO SCH (06:59)
[2019-01-03] MEDS: GABAPENTIN 300 MG CAP PO SCH ×2 (07:01→21:02)
[2019-01-03 07:38] VITALS: BP 139/64; PULSE 66; RESP 14
--- NOTE | 2019-01-03 08:00 | NUR ---
PT RECEIVED IN BED. A,A,OX4. NOT IN ANY ACUTE DISTRESS. DENIES ANY PAIN AT THIS TIME. THE PLAN OF CARE DISCUSSED W/ THE PT, VERBALIZED UNDERSTANDING. CALL LIGHT IN REACH. PT ENCOURAGED TO CALL FOR ASSISTANCE. WILL CONT. MONITORING. WILL CONT. W/ THE PLAN OF CARE.
[2019-01-03] MEDS: DOCUSATE SODIUM 100 MG CAP PO SCH ×2 (08:34→21:02)
[2019-01-03] MEDS: MULTIVIT/CA CARB/B CMPLX/FA TAB PO SCH (08:34)
[2019-01-03] MEDS: METOPROLOL 25 MG TAB PO SCH ×2 (08:35→21:03)
[2019-01-03] MEDS: POLYETHYLENE GLYCOL 17 GM PACKET PO SCH (08:35)
[2019-01-03] MEDS: NIFEdipine (XL) 30 MG TAB PO SCH (08:35)
[2019-01-03] MEDS: CLOPIDOGREL 75 MG TAB PO SCH (08:35)
--- NOTE | 2019-01-03 12:29 | PN ---
Date/Time of Note Date/Time of Note DATE: 01/03/19 TIME: 12:28 Assessment/Plan VTE Prophylaxis Risk score (from Nsg)>0 risk: 6 SCD applied (from Nsg): Yes Pharmacological prophylaxis: LMWH Lines/Catheters IV Catheter Type (from Nrsg): Central Line Central line still needed: Yes Urinary Cath still in place: No Assessment/Plan Hospital Course -Symptomatic anemia requiring blood transfusion. Patient will receive blood transfusion. -Hemodialysis dependent end-stage renal disease -Chronic systolic and diastolic congestive heart failure -S/p Left lower lobe pneumonia -Hypothyroidism, continue Synthroid. -DNR status Result Diagram: 01/02/1944201/02/19442 Subjective 24 Hr Interval Summary Free Text/Dictation Patient has no complaints Exam/Review of Systems Exam Vitals Vital Signs Date Temp Pulse Resp B/P (MAP) Pulse Ox O2 O2 Flow FiO2 Time Delivery Rate 01/03/19 98.0 66 14 139/64 98 Room Air 07:38 (89) 01/02/19 21 02:08 Intake and Output 01/02/19 01/02/19 01/03/19 1515:00 23:00 07:00 IntakeIntake Total 550 ml 120 ml OutputOutput Total 2800 ml BalanceBalance -2250 ml 120 ml Constitutional: well developed Head: normocephalic, atraumatic Neck: supple Respiratory: diminished breath sounds Cardiovascular: regular rate and rhythm Gastrointestinal: soft, non-tender Extremities: normal pulses Medications Medication Current Medications Sodium Chloride (NS) -To prime the dialy... DIRECTED FOR HD PRN IV HD; Start 01/02/19 at 07:00 Acetaminophen (Tylenol Tab) 500 mg Q6 PRN PO MILD PAIN(1-3)OR ELEVATED TEMP Last administered on 01/02/19at 20:51; Admin Dose 500 MG; Start 01/01/19 at 18:00 Atorvastatin Calcium (Lipitor) 10 mg QHS PO Last administered on 01/02/19at 20:03; Admin Dose 10 MG; Start 01/01/19 at 21:00 Clopidogrel Bisulfate (plaVIX) 75 mg DAILY PO Last administered on 01/03/19at 08:35; Admin Dose 75 MG; Start 01/02/19 at 09:00 Diphenhydramine HCl (Benadryl) 25 mg Q6H PRN PO ITCHING Last administered on 01/02/19 20:52; Admin Dose 25 MG; Start 01/01/19 at 18:00 Docusate Sodium (Colace) 100 mg BID PO Last administered on 01/03/19 08:34; Admin Dose 100 MG; Start 01/01/19 at 21:00 Gabapentin (Neurontin) 300 mg Q12 PO Last administered on 01/03/19 07:01; Admin Dose 300 MG; Start 01/01/19 at 21:00 Guaifenesin/ Dextromethorphan (Robitussin Dm Liquid Cup) 10 ml Q4H PRN PO COU GH; Start 01/01/19 at 18:00 Albuterol/ Ipratropium (Duoneb) 3 ml Q4H RESP THERAPY PRN INH SHORTNESS OF BREATH; Start 01/01/19 at 18:00 Levothyroxine Sodium (Synthroid) 150 mcg BEFORE BREAKFAST PO Last administered on 01/03/19 06:59; Admin Dose 150 MCG; Start 01/02/19 at 07:00 Metoprolol Tartrate (Lopressor) 25 mg BID PO Last administered on 01/03/19 08:35; Admin Dose 25 MG; Start 01/01/19 at 21:00 Multivit/Ca Carb/ B Cmplx/FA/Prenat ([place]) 1 tab DAILY PO Last administered on 01/03/19 08:34; Admin Dose 1 TAB; Start 01/02/19 at 09:00 Nifedipine (Procardia Xl) 30 mg DAILY PO Last administered on 01/03/19 08:35; Admin Dose 30 MG; Start 01/02/19 at 09:00 Pantoprazole (Protonix Tab) 40 mg AC BREAKFAST PO Last administered on 01/03/19 06:59; Admin Dose 40 MG; Start 01/02/19 at 07:20 Polyethylene Glycol (Miralax) 17 gm DAILY PO Last administered on 01/03/19 08:35; Admin Dose 17 GM; Start 01/02/19 at 09:00 Epoetin Larry (Epogen (Esrd)) 3,000 units AFTER DIALYSIS SC Last administered on 01/02/19 16:45; Admin Dose 3,000 UNITS; Start 01/01/19 at 18:30 Heparin Sodium (Porcine) (Heparin (1000 Units/ml)) 3,700 unit AFTER DIALYSIS CATHETER Last administered on 01/02/19at 13:28; Admin Dose 3,700 UNIT; Start 01/02/19 at 13:00 LAMONT BREWER Jan 03, 2019 12:29
--- NOTE | 2019-01-03 13:00 | CONS ---
Assessment/Plan Assessment/Plan Assessment/Plan (Daily) 1, ESRD on HD, missed HD with mild fluid overload ; HD today 2. Severe symptomatic anemia 3. H/o HTN 4. H/o HL 5. Anemia of ESRD 6. H/o CHF 7. h/o LE neuropathy 8. H/o restless leg syndrome Plan: sp 2 unit PRBC transfusion pt regular schedule for HD is Fri, , Friday, next HD ordered for tomorrow morning with PRBC transfusion continue current medications will continue to follow up Patient seen in collaboration with Dr Hilda Hill. dw staff Consultation Date/Type/Reason Admit Date/Time Jan 01, 2019 at 08:14 Initial Consult Date 01/01/19 Type of Consult NEPHROLOGY Reason for Consultation ESRD Requesting Provider: LOREN ROSE MD Date/Time of Note DATE: 01/03/19 TIME: 13:00 24 HR Interval Summary Free Text/Dictation - sp 1 PRBC transfusion w/ HD yesterday - seems comfortable - no new issues reported last night - wants to go home - dw staff Constitutional: requiring O2 Detailed Summary Eyes: no complaints ENT: no complaints Respiratory: no complaints Gastrointestinal: no complaints Exam/Review of Systems Exam Vitals Vital Signs Date Temp Pulse Resp B/P (MAP) Pulse Ox O2 O2 Flow FiO2 Time Delivery Rate 01/03/19 98.0 66 14 139/64 98 Room Air 07:38 (89) 01/02/19 21 02:08 Intake and Output 01/02/19 01/02/19 01/03/19 1515:00 23:00 07:00 IntakeIntake Total 550 ml 120 ml OutputOutput Total 2800 ml BalanceBalance -2250 ml 120 ml Constitutional: alert, well developed Psych: nl mood/affect Eyes: EOMI, nl lids, nl sclera ENMT: nl external ears & nose Neck: non-tender Respiratory: diminished breath sounds (at bases bilaterally) Cardiovascular: nl pulses, other (s1s2) Gastrointestinal: soft, non-tender Musculoskeletal: nl extremities to inspection Extremities: normal pulses 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: nl speech, other (alert/responsive) Skin: nl turgor Lymph: nontender Results Result Diagram: 01/02/1944201/02/19442 Medications Medication Current Medications Sodium Chloride (NS) -To prime the dialy... DIRECTED FOR HD PRN IV HD; Start 01/02/19 at 07:00 Acetaminophen (Tylenol Tab) 500 mg Q6 PRN PO MILD PAIN(1-3)OR ELEVATED TEMP Last administered on 01/02/19 20:51; Admin Dose 500 MG; Start 01/01/19 at 18:00 Atorvastatin Calcium (Lipitor) 10 mg QHS PO Last administered on 01/02/19 20:03; Admin Dose 10 MG; Start 01/01/19 at 21:00 Clopidogrel Bisulfate (plaVIX) 75 mg DAILY PO Last administered on 01/03/19 08:35; Admin Dose 75 MG; Start 01/02/19 at 09:00 Diphenhydramine HCl (Benadryl) 25 mg Q6H PRN PO ITCHING Last administered on 01/02/19 20:52; Admin Dose 25 MG; Start 01/01/19 at 18:00 Docusate Sodium (Colace) 100 mg BID PO Last administered on 01/03/19 08:34; Admin Dose 100 MG; Start 01/01/19 at 21:00 Gabapentin (Neurontin) 300 mg Q12 PO Last administered on 01/03/19 07:01; Admin Dose 300 MG; Start 01/01/19 at 21:00 Guaifenesin/ Dextromethorphan (Robitussin Dm Liquid Cup) 10 ml Q4H PRN PO COUGH; Start 01/01/19 at 18:00 Albuterol/ Ipratropium (Duoneb) 3 ml Q4H RESP THERAPY PRN INH SHORTNESS OF BREATH; Start 01/01/19 at 18:00 Levothyroxine Sodium (Synthroid) 150 mcg BEFORE BREAKFAST PO Last administered on 01/03/19 06:59; Admin Dose 150 MCG; Start 01/02/19 at 07:00 Metoprolol Tartrate (Lopressor) 25 mg BID PO Last administered on 01/03/19 08:35; Admin Dose 25 MG; Start 01/01/19 at 21:00 Multivit/Ca Carb/ B Cmplx/FA/Prenat (Sierra-Tarsha) 1 tab DAILY PO Last administered on 01/03/19 08:34; Admin Dose 1 TAB; Start 01/02/19 at 09:00 Nifedipine (Procardia Xl) 30 mg DAILY PO Last administered on 01/03/19 08:35; Admin Dose 30 MG; Start 01/02/19 at 09:00 Pantoprazole (Protonix Tab) 40 mg AC BREAKFAST PO Last administered on 01/03/19 06:59; Admin Dose 40 MG; Start 01/02/19 at 07:20 Polyethylene Glycol (Miralax) 17 gm DAILY PO Last administered on 01/03/19 08:35; Admin Dose 17 GM; Start 01/02/19 at 09:00 Epoetin Larry (Epogen (Esrd)) 3,000 units AFTER DIALYSIS SC Last administered on 01/02/19 16:45; Admin Dose 3,000 UNITS; Start 01/01/19 at 18:30 Heparin Sodium (Porcine) (Heparin (1000 Units/ml)) 3,700 unit AFTER DIALYSIS CATHETER Last administered on 01/02/19 13:28; Admin Dose 3,700 UNIT; Start 01/02/19 at 13:00 KATEI MENDEZ Jan 03, 2019 13:00
--- NOTE | 2019-01-03 14:17 | CONS ---
Assessment/Plan Assessment/Plan Hospital Course (Demo Recall) IMPRESSION: 1. Congestive heart failure exacerbation, diastolic, acute on chronic by most recent echo from 09/2018 revealing an EF of 60% to 65%. 2. Abnormal electrocardiogram, assess for acute coronary syndrome. 3. Coagulopathy. 4. History of paroxysmal atrial fibrillation, atrial flutter. 5. Hypertension, under reasonable control. 6. Chronic kidney disease, on hemodialysis. 7. Anemia. 8. Thrombocytopenia. Recc: -Continue BB/procardia with reasonable BP control -follow Hgb s/p transfusion -Continue plavix as tolerated only -Continue statin -HD for volume removal Consultation Date/Type/Reason Admit Date/Time Jan 01, 2019 at 08:14 Initial Consult Date 01/01/19 Type of Consult Cardiology Reason for Consultation CHF Requesting Provider: LOREN ROSE MD Date/Time of Note DATE: 01/03/19 TIME: 14:16 Exam/Review of Systems Vital Signs Vitals Vital Signs Date Temp Pulse Resp B/P (MAP) Pulse Ox O2 O2 Flow FiO2 Time Delivery Rate 01/03/19 98.0 66 14 139/64 98 Room Air 07:38 (89) 01/02/19 21 02:08 Intake and Output 01/02/19 01/02/19 01/03/19 1515:00 23:00 07:00 IntakeIntake Total 550 ml 120 ml OutputOutput Total 2800 ml BalanceBalance -2250 ml 120 ml Exam Exam Review of Systems: CONSTITUTIONAL: No fevers, chills. PULMONARY: No sob CARDIOVASCULAR: No chest pain/palpitations GASTROINTESTINAL: No nausea/vomiting. GENITOURINARY: No hematuria/dysuria. MUSCULOSKELETAL: No myagias/arthalgias. PSYCHIATRIC: The patient denies depression. NEUROLOGIC: No weakness Constitutional: alert, oriented Head: normocephalic ENMT: mucosa pink and moist Neck: supple, jvd (9 cm water) Respiratory: diminished breath sounds (at bases/B) Cardiovascular: regular rate and rhythm Gastrointestinal: soft, non-tender Musculoskeletal: muscle weakness (mild generalized) Extremities: edema (trace/B) Labs Result Diagram: 01/02/1944201/02/19442 Medications Medications Current Medications Sodium Chloride (NS) -To prime the dialy... DIRECTED FOR HD PRN IV HD; Start 01/02/19 at 07:00 Acetaminophen (Tylenol Tab) 500 mg Q6 PRN PO MILD PAIN(1-3)OR ELEVATED TEMP Last administered on 01/02/19 20:51; Admin Dose 500 MG; Start 01/01/19 at 18:00 Atorvastatin Calcium (Lipitor) 10 mg QHS PO Last administered on 01/02/19 20:03; Admin Dose 10 MG; Start 01/01/19 at 21:00 Clopidogrel Bisulfate (plaVIX) 75 mg DAILY PO Last administered on 01/03/19 08:35; Admin Dose 75 MG; Start 01/02/19 at 09:00 Diphenhydramine HCl (Benadryl) 25 mg Q6H PRN PO ITCHING Last administered on 01/02/19 20:52; Admin Dose 25 MG; Start 01/01/19 at 18:00 Docusate Sodium (Colace) 100 mg BID PO Last administered on 01/03/19 08:34; Admin Dose 100 MG; Start 01/01/19 at 21:00 Gabapentin (Neurontin) 300 mg Q12 PO Last administered on 01/03/19 07:01; Admin Dose 300 MG; Start 01/01/19 at 21:00 Guaifenesin/ Dextromethorphan (Robitussin Dm Liquid Cup) 10 ml Q4H PRN PO COUGH; Start 01/01/19 at 18:00 Albuterol/ Ipratropium (Duoneb) 3 ml Q4H RESP THERAPY PRN INH SHORTNESS OF BREATH; Start 01/01/19 at 18:00 Levothyroxine Sodium (Synthroid) 150 mcg BEFORE BREAKFAST PO Last administered on 01/03/19 06:59; Admin Dose 150 MCG; Start 01/02/19 at 07:00 Metoprolol Tartrate (Lopressor) 25 mg BID PO Last administered on 01/03/19 08:35; Admin Dose 25 MG; Start 01/01/19 at 21:00 Multivit/Ca Carb/ B Cmplx/FA/Prenat (Sierra-Tarsha) 1 tab DAILY PO Last administered on 01/03/19 08:34; Admin Dose 1 TAB; Start 01/02/19 at 09:00 Nifedipine (Procardia Xl) 30 mg DAILY PO Last administered on 2/10/19at 08:35; Admin Dose 30 MG; Start 01/02/19 at 09:00 Pantoprazole (Protonix Tab) 40 mg AC BREAKFAST PO Last administered on 01/03/19 06:59; Admin Dose 40 MG; Start 01/02/19 at 07:20 Polyethylene Glycol (Miralax) 17 gm DAILY PO Last administered on 01/03/19at 08:35; Admin Dose 17 GM; Start 01/02/19 at 09:00 Epoetin Larry (Epogen (Esrd)) 3,000 units AFTER DIALYSIS SC Last administered on 01/02/19at 16:45; Admin Dose 3,000 UNITS; Start 01/01/19 at 18:30 Heparin Sodium (Porcine) (Heparin (1000 Units/ml)) 3,700 unit AFTER DIALYSIS CATHETER Last administered on 01/02/19at 13:28; Admin Dose 3,700 UNIT; Start 01/02/19 at 13:00 ALVINA GARCIA Jan 03, 2019 14:17
[2019-01-03 14:47] VITALS: BP 130/61; PULSE 63; RESP 15
--- NOTE | 2019-01-03 18:30 | NUR ---
EOSS; PT'S HEMODYNAMICS ND RESPIR. STATUS ARE STATUS ARE STABLE. NO COMPLICATIONS. NO CHANGES IN CONDITION. NO C/O PAIN. WILL CONT.MONITORING. WILL CONT. W/ THE PLAN OF CARE.
[2019-01-03 20:35] VITALS: BP 123/58; PULSE 68; RESP 18
[2019-01-03] MEDS: ATORVASTATIN 10 MG TAB PO SCH (21:03)
[2019-01-03] MEDS: ACETAMINOPHEN 500 MG TAB PO PRN (22:19)
[2019-01-03] MEDS: DIPHENHYDRAMINE 25 MG CAP PO PRN (22:19)
[2019-01-04 02:21] VITALS: BP_SYST 112; BP_SYST 121; BP_DIAS 57; PULSE 75; RESP 19
--- NOTE | 2019-01-04 06:21 | NUR ---
END OF SHIFT REPORTS: PATIENT RESTED THROUGHOUT THE NIGHT.AFEBRILE. HEMODYNAMICS AND RESPIRATORY STATUS ARE STABLE.
[2019-01-04] MEDS: PANTOPRAZOLE (EC) 40 MG TAB PO SCH (06:57)
[2019-01-04] MEDS: LEVOTHYROXINE 150 MCG TAB PO SCH (06:57)
[2019-01-04 07:36] VITALS: BP 146/63; PULSE 62; RESP 17
[2019-01-04] MEDS: MULTIVIT/CA CARB/B CMPLX/FA TAB PO SCH (09:13)
[2019-01-04] MEDS: POLYETHYLENE GLYCOL 17 GM PACKET PO SCH (09:13)
[2019-01-04] MEDS: GABAPENTIN 300 MG CAP PO SCH ×2 (09:14→20:53)
[2019-01-04] MEDS: DOCUSATE SODIUM 100 MG CAP PO SCH ×2 (09:14→20:52)
[2019-01-04] MEDS: METOPROLOL 25 MG TAB PO SCH ×2 (09:14→20:53)
[2019-01-04] MEDS: NIFEdipine (XL) 30 MG TAB PO SCH (09:14)
[2019-01-04] MEDS: CLOPIDOGREL 75 MG TAB PO SCH (09:14)
--- NOTE | 2019-01-04 11:18 | CONS ---
Assessment/Plan Assessment/Plan Assessment/Plan (Daily) 1, ESRD on HD, missed HD with mild fluid overload 2. Severe sympatomatic anemia 3. H/o HTN 4. H/o HL 5. 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 H/o CHF 7. h/o LE neuropathy 8. H/o restoless leg syndrome Plan: s/p PRBC during this admisison, epogen for anemia Plan for HD tomorrow AM, then we will continue pt on TTS schedule continue current medications will follow up Consultation Date/Type/Reason Admit Date/Time Jan 01, 2019 at 08:14 Initial Consult Date 01/01/19 Type of Consult NEPHROLOGY Requesting Provider: LOREN ROSE MD Date/Time of Note DATE: 01/04/19 TIME: 11:18 24 HR Interval Summary Free Text/Dictation remained stable, plan for HD on Friday Exam/Review of Systems Exam Vitals Vital Signs Date Temp Pulse Resp B/P (MAP) Pulse Ox O2 O2 Flow FiO2 Time Delivery Rate 01/04/19 98.1 62 17 146/63 96 Room Air 07:36 (90) 01/02/19 02:08 Intake and Output 01/03/19 01/03/19 01/04/19 1515:00 23:00 07:00 IntakeIntake Total 400 ml 50 ml BalanceBalance 400 ml 50 ml Exam Constitutional: alert Respiratory: clear to auscultation, normal air movement Cardiovascular: regular rate and rhythm, nl pulses Gastrointestinal: soft, non-tender Musculoskeletal: muscle weakness, swelling Extremities: normal pulses 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: [employer]PORT ENGINE[employer] II-XII intact Results Result Diagram: 01/02/1944201/02/193 Results 24hrs Laboratory Tests Test 01/04/19 06:39 Lab Scanned Report BLOOD TRANSFUSION Medications Medication Current Medications Sodium Chloride (NS) -To prime the dialy... DIRECTED FOR HD PRN IV HD; Start 01/02/19 at 07:00 Acetaminophen (Tylenol Tab) 500 mg Q6 PRN PO MILD PAIN(1-3)OR ELEVATED TEMP Last administered on 01/03/19at 22:19; Admin Dose 500 MG; Start 01/01/19 at 18:00 Atorvastatin Calcium (Lipitor) 10 mg QHS PO Last administered on 01/03/19at 21:03; Admin Dose 10 MG; Start 01/01/19 at 21:00 Clopidogrel Bisulfate (plaVIX) 75 mg DAILY PO Last administered on 01/04/19 09:14; Admin Dose 75 MG; Start 01/02/19 at 09:00 Diphenhydramine HCl (Benadryl) 25 mg Q6H PRN PO ITCHING Last administered on 22:19; Admin Dose 25 MG; Start 01/01/19 at 18:00 Docusate Sodium (Colace) 100 mg BID PO Last administered on 01/04/19 09:14; Admin Dose 100 MG; Start 01/01/19 at 21:00 Gabapentin (Neurontin) 300 mg Q12 PO Last administered on 01/04/19 09:14; Admin Dose 300 MG; Start 01/01/19 at 21:00 Guaifenesin/ Dextromethorphan (Robitussin Dm Liquid Cup) 10 ml Q4H PRN PO COUGH; Start 01/01/19 at 18:00 Albuterol/ Ipratropium (Duoneb) 3 ml Q4H RESP THERAPY PRN INH SHORTNESS OF BREATH; Start 01/01/19 at 18:00 Levothyroxine Sodium (Synthroid) 150 mcg BEFORE BREAKFAST PO Last administered on 01/04/19 06:57; Admin Dose 150 MCG; Start 01/02/19 at 07:00 Metoprolol Tartrate (Lopressor) 25 mg BID PO Last administered on 01/04/19 09:14; Admin Dose 25 MG; Start 01/01/19 at 21:00 Multivit/Ca Carb/ B Cmplx/FA/Prenat (Sierra-Tarsha) 1 tab DAILY PO Last administered on 01/04/19 09:13; Admin Dose 1 TAB; Start 01/02/19 at 09:00 Nifedipine (Procardia Xl) 30 mg DAILY PO Last administered on 01/04/19 09:14; Admin Dose 30 MG; Start 01/02/19 at 09:00 Pantoprazole (Protonix Tab) 40 mg AC BREAKFAST PO Last administered on 01/04/19 06:57; Admin Dose 40 MG; Start 01/02/19 at 07:20 Polyethylene Glycol (Miralax) 17 gm DAILY PO Last administered on 2/11/19at 09:13; Admin Dose 17 GM; Start 01/02/19 at 09:00 Epoetin Larry (Epogen (Esrd)) 3,000 units AFTER DIALYSIS SC Last administered on 01/02/19at 16:45; Admin Dose 3,000 UNITS; Start 01/01/19 at 18:30 Heparin Sodium (Porcine) (Heparin (1000 Units/ml)) 3,700 unit AFTER DIALYSIS CATHETER Last administered on 01/02/19at 13:28; Admin Dose 3,700 UNIT; Start 01/02/19 at 13:00 GI HARTMAN MD Jan 04, 2019 11:18
--- NOTE | 2019-01-04 13:35 | CONS ---
Assessment/Plan Assessment/Plan Hospital Course (Demo Recall) IMPRESSION: 1. Congestive heart failure exacerbation, diastolic, acute on chronic by most recent echo from 09/2018 revealing an EF of 60% to 65%. 2. Abnormal electrocardiogram, assess for acute coronary syndrome. 3. Coagulopathy. 4. History of paroxysmal atrial fibrillation, atrial flutter. 5. Hypertension, under reasonable control. 6. Chronic kidney disease, on hemodialysis. 7. Anemia. 8. Thrombocytopenia. Recc: -Continue BB/procardia with reasonable BP control -follow Hgb s/p transfusion -Continue plavix as tolerated only -Continue statin -HD for volume removal Consultation Date/Type/Reason Admit Date/Time Jan 01, 2019 at 08:14 Initial Consult Date 01/01/19 Type of Consult Cardiology Reason for Consultation CHF Requesting Provider: LOREN ROSE MD Date/Time of Note DATE: 01/04/19 TIME: 13:33 Exam/Review of Systems Vital Signs Vitals Vital Signs Date Temp Pulse Resp B/P (MAP) Pulse Ox O2 O2 Flow FiO2 Time Delivery Rate 01/04/19 98.1 62 17 146/63 96 Room Air 07:36 (90) 01/02/19 21 02:08 Intake and Output 01/03/19 01/03/19 01/04/19 1515:00 23:00 07:00 IntakeIntake Total 400 ml 50 ml BalanceBalance 400 ml 50 ml Exam Exam Review of Systems: CONSTITUTIONAL: No fevers, chills. PULMONARY: No sob CARDIOVASCULAR: No chest pain/palpitations GASTROINTESTINAL: No nausea/vomiting. GENITOURINARY: No hematuria/dysuria. MUSCULOSKELETAL: No myagias/arthalgias. PSYCHIATRIC: The patient denies depression. NEUROLOGIC: No weakness Constitutional: alert Psych: no complaints Head: normocephalic ENMT: mucosa pink and moist Neck: supple, jvd (9 cm water) Respiratory: diminished breath sounds Cardiovascular: regular rate and rhythm Gastrointestinal: soft, non-tender Musculoskeletal: muscle weakness (mild generalized) Extremities: edema (trace/B) 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: other (No focal deficits) Labs Result Diagram: 01/02/193 01/02/19442 Results 24hrs Laboratory Tests Test 01/04/19 06:39 Lab Scanned Report BLOOD TRANSFUSION Medications Medications Current Medications Sodium Chloride (NS) -To prime the dialy... DIRECTED FOR HD PRN IV HD; Start 01/02/19 at 07:00 Acetaminophen (Tylenol Tab) 500 mg Q6 PRN PO MILD PAIN(1-3)OR ELEVATED TEMP Last administered on 01/03/19 22:19; Admin Dose 500 MG; Start 01/01/19 at 18:00 Atorvastatin Calcium (Lipitor) 10 mg QHS PO Last administered on 01/03/19 21:03; Admin Dose 10 MG; Start 01/01/19 at 21:00 Clopidogrel Bisulfate (plaVIX) 75 mg DAILY PO Last administered on 01/04/19 09:14; Admin Dose 75 MG; Start 01/02/19 at 09:00 Diphenhydramine HCl (Benadryl) 25 mg Q6H PRN PO ITCHING Last administered on 01/03/19 22:19; Admin Dose 25 MG; Start 01/01/19 at 18:00 Docusate Sodium (Colace) 100 mg BID PO Last administered on 01/04/19 09:14; Admin Dose 100 MG; Start 01/01/19 at 21:00 Gabapentin (Neurontin) 300 mg Q12 PO Last administered on 01/04/19 09:14; Admin Dose 300 MG; Start 01/01/19 at 21:00 Guaifenesin/ Dextromethorphan (Robitussin Dm Liquid Cup) 10 ml Q4H PRN PO COU GH; Start 01/01/19 at 18:00 Albuterol/ Ipratropium (Duoneb) 3 ml Q4H RESP THERAPY PRN INH SHORTNESS OF BREATH; Start 01/01/19 at 18:00 Levothyroxine Sodium (Synthroid) 150 mcg BEFORE BREAKFAST PO Last administered on 01/04/19 06:57; Admin Dose 150 MCG; Start 01/02/19 at 07:00 Metoprolol Tartrate (Lopressor) 25 mg BID PO Last administered on 01/04/19 09:14; Admin Dose 25 MG; Start 01/01/19 at 21:00 Multivit/Ca Carb/ B Cmplx/FA/Prenat (Sierra-Tarsha) 1 tab DAILY PO Last administered on 01/04/19 09:13; Admin Dose 1 TAB; Start 01/02/19 at 09:00 Nifedipine (Procardia Xl) 30 mg DAILY PO Last administered on 01/04/19 09:14; Admin Dose 30 MG; Start 01/02/19 at 09:00 Pantoprazole (Protonix Tab) 40 mg AC BREAKFAST PO Last administered on 01/04/19 06:57; Admin Dose 40 MG; Start 01/02/19 at 07:20 Polyethylene Glycol (Miralax) 17 gm DAILY PO Last administered on 01/04/19 09:13; Admin Dose 17 GM; Start 01/02/19 at 09:00 Epoetin Larry (Epogen (Esrd)) 3,000 units AFTER DIALYSIS SC Last administered on 01/02/19 16:45; Admin Dose 3,000 UNITS; Start 01/01/19 at 18:30 Heparin Sodium (Porcine) (Heparin (1000 Units/ml)) 3,700 unit AFTER DIALYSIS CATHETER Last administered on 01/02/19 13:28; Admin Dose 3,700 UNIT; Start 01/02/19 at 13:00 ALVINA GARCIA Jan 04, 2019 13:35
--- NOTE | 2019-01-04 13:48 | NUR ---
DIALYSIS: [facility] called for dialysis 01/05, confirmation #[id number]
[2019-01-04 14:41] VITALS: BP 131/58; PULSE 78; RESP 18
--- NOTE | 2019-01-04 15:26 | PN ---
Date/Time of Note Date/Time of Note DATE: 01/04/19 TIME: 15:25 Assessment/Plan VTE Prophylaxis Risk score (from Nsg)>0 risk: 7 SCD applied (from Nsg): Yes Lines/Catheters IV Catheter Type (from Nrsg): PermaCath Urinary Cath still in place: No Assessment/Plan Hospital Course Assessment/Plan -Symptomatic anemia requiring blood transfusion. Patient will receive blood transfusion. Continue to monitor hemoglobin and hematocrit, will obtain stool for OB. Dr. Funes is asked to see patient in hematology consultation. Continue Epogen. -Hemodialysis dependent end-stage renal disease. Dr. Hill will be following from nephrology standpoint. -Chronic systolic and diastolic congestive heart failure. Continue telemetry monitoring. Dr. Iraheta is asked to see patient in cardiology consultation. -Coronary artery disease, continue Plavix -Hypertension -Hyperlipidemia -Paroxysmal atrial fibrillation, patient is currently in sinus rhythm -S/p Left lower lobe pneumonia -Hypothyroidism, continue Synthroid. -DNR status Further recommendations based on clinical course. Plan of care discussed with Dr. Olivier. Result Diagram: 01/02/193 01/02/193 Results 24hrs Laboratory Tests Test 01/04/19 06:39 Lab Scanned Report BLOOD TRANSFUSION Exam/Review of Systems Exam Vitals Vital Signs Date Temp Pulse Resp B/P (MAP) Pulse Ox O2 O2 Flow FiO2 Time Delivery Rate 01/04/19 98.0 78 18 131/58 94 Room Air 14:41 (82) 01/02/19 21 02:08 Intake and Output 01/03/19 01/03/19 01/04/19 1515:00 23:00 07:00 IntakeIntake Total 400 ml 50 ml BalanceBalance 400 ml 50 ml Exam Constitutional: alert, oriented Respiratory: clear to auscultation Cardiovascular: regular rate and rhythm Gastrointestinal: soft, non-tender Musculoskeletal: nl extremities to inspection 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: nl mental status Skin: nl turgor Additional Comments Right chest permacath Results Results 24hrs Laboratory Tests Test 01/04/19 06:39 Lab Scanned Report BLOOD TRANSFUSION Medications Medication Current Medications Sodium Chloride (NS) -To prime the dialy... DIRECTED FOR HD PRN IV HD; Start 01/02/19 at 07:00 Acetaminophen (Tylenol Tab) 500 mg Q6 PRN PO MILD PAIN(1-3)OR ELEVATED TEMP Last administered on 01/03/19 22:19; Admin Dose 500 MG; Start 01/01/19 at 18:00 Atorvastatin Calcium (Lipitor) 10 mg QHS PO Last administered on 01/03/19 21:03; Admin Dose 10 MG; Start 01/01/19 at 21:00 Clopidogrel Bisulfate (plaVIX) 75 mg DAILY PO Last administered on 01/04/19 09:14; Admin Dose 75 MG; Start 01/02/19 at 09:00 Diphenhydramine HCl (Benadryl) 25 mg Q6H PRN PO ITCHING Last administered on 01/03/19 22:19; Admin Dose 25 MG; Start 01/01/19 at 18:00 Docusate Sodium (Colace) 100 mg BID PO Last administered on 01/04/19 09:14; Admin Dose 100 MG; Start 01/01/19 at 21:00 Gabapentin (Neurontin) 300 mg Q12 PO Last administered on 01/04/19 09:14; Admin Dose 300 MG; Start 01/01/19 at 21:00 Guaifenesin/ Dextromethorphan (Robitussin Dm Liquid Cup) 10 ml Q4H PRN PO COUGH; Start 01/01/19 at 18:00 Albuterol/ Ipratropium (Duoneb) 3 ml Q4H RESP THERAPY PRN INH SHORTNESS OF BREATH; Start 01/01/19 at 18:00 Levothyroxine Sodium (Synthroid) 150 mcg BEFORE BREAKFAST PO Last administered on 01/04/19 06:57; Admin Dose 150 MCG; Start 01/02/19 at 07:00 Metoprolol Tartrate (Lopressor) 25 mg BID PO Last administered on 01/04/19 09:14; Admin Dose 25 MG; Start 01/01/19 at 21:00 Multivit/Ca Carb/ B Cmplx/FA/Prenat (Sierra-Tarsha) 1 tab DAILY PO Last administered on 01/04/19 09:13; Admin Dose 1 TAB; Start 01/02/19 at 09:00 Nifedipine (Procardia Xl) 30 mg DAILY PO Last administered on 01/04/19 09:14; Admin Dose 30 MG; Start 01/02/19 at 09:00 Pantoprazole (Protonix Tab) 40 mg AC BREAKFAST PO Last administered on 01/04/19 06:57; Admin Dose 40 MG; Start 01/02/19 at 07:20 Polyethylene Glycol (Miralax) 17 gm DAILY PO Last administered on 01/04/19 09:13; Admin Dose 17 GM; Start 01/02/19 at 09:00 Epoetin Larry (Epogen (Esrd)) 3,000 units AFTER DIALYSIS SC Last administered on 01/02/19 16:45; Admin Dose 3,000 UNITS; Start 01/01/19 at 18:30 Heparin Sodium (Porcine) (Heparin (1000 Units/ml)) 3,700 unit AFTER DIALYSIS CATHETER Last administered on 01/02/19 13:28; Admin Dose 3,700 UNIT; Start 01/02/19 at 13:00 EDWAR VARGAS Jan 04, 2019 15:26
--- NOTE | 2019-01-04 18:53 | NUR ---
END OF SHIFT NOTE: Pt with no complaints of pain. [facility] called for dialysis tomorrow morning. Pt tolerating meals, no complaints during shift. VSS, call calle within reach, hourly rounding maintained.
[2019-01-04 20:44] VITALS: BP 125/61; PULSE 63; RESP 18
[2019-01-04] MEDS: ATORVASTATIN 10 MG TAB PO SCH (20:52)
[2019-01-04] MEDS: ACETAMINOPHEN 500 MG TAB PO PRN (22:22)
[2019-01-04] MEDS: DIPHENHYDRAMINE 25 MG CAP PO PRN (22:22)
[2019-01-05] VITALS (18 sets, daily range): BP systolic 92–135; BP diastolic 51–77; PULSE 56–70; RESP 17–18
[2019-01-05] MEDS: LEVOTHYROXINE 150 MCG TAB PO SCH (06:55)
[2019-01-05] MEDS: PANTOPRAZOLE (EC) 40 MG TAB PO SCH (06:55)
[2019-01-05] MEDS: CLOPIDOGREL 75 MG TAB PO SCH (09:30)
[2019-01-05] MEDS: GABAPENTIN 300 MG CAP PO SCH (09:30)
[2019-01-05] MEDS: MULTIVIT/CA CARB/B CMPLX/FA TAB PO SCH (09:30)
[2019-01-05] MEDS: DOCUSATE SODIUM 100 MG CAP PO SCH (09:30)
[2019-01-05] MEDS: POLYETHYLENE GLYCOL 17 GM PACKET PO SCH (09:30)
[2019-01-05] MEDS: NIFEdipine (XL) 30 MG TAB PO SCH (09:31)
[2019-01-05] MEDS: METOPROLOL 25 MG TAB PO SCH (09:31)
--- NOTE | 2019-01-05 09:57 | CONS ---
Assessment/Plan Assessment/Plan Assessment/Plan (Daily) 1, ESRD on HD, missed HD with mild fluid overload 2. Severe sympatomatic anemia 3. H/o HTN 4. H/o HL 5. 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 H/o CHF 7. h/o LE neuropathy 8. H/o restoless leg syndrome Plan: s/p PRBC during this admisrenetta, epogen for anemia s/p HD today 2 L removed, ok to d/c after HD, will continue HD on TTS if pt stays here continue current medications will follow up Consultation Date/Type/Reason Admit Date/Time Jan 01, 2019 at 08:14 Initial Consult Date 01/01/19 Type of Consult NEPHROLOGY Requesting Provider: LOREN ROSE MD Date/Time of Note DATE: 01/05/19 TIME: 09:56 24 HR Interval Summary Free Text/Dictation s/p Hd today 2 L rmeoved, Bp stable, Hb stable Exam/Review of Systems Exam Vitals Vital Signs Date Temp Pulse Resp B/P (MAP) Pulse Ox O2 O2 Flow FiO2 Time Delivery Rate 01/05/19 66 09:50 01/05/19 17 126/63 96 Room Air 09:08 (84) 01/05/19 97.2 07:54 01/04/19 21 17:22 Intake and Output 01/04/19 01/04/19 01/05/19 1515:00 23:00 07:00 IntakeIntake Total 900 ml BalanceBalance 900 ml Results Result Diagram: 01/05/19 0434 01/05/19 0434 Results 24hrs Laboratory Tests Test 01/05/19 04:34 White Blood Count 9.0 Red Blood Count 3.51 #L Hemoglobin 10.8 #L Hematocrit 33.7 #L Mean Corpuscular Volume 96.0 Mean Corpuscular Hemoglobin 30.8 Mean Corpuscular Hemoglobin Concent 32.0 Red Cell Distribution Width 15.4 H Platelet Count 175 # Mean Platelet Volume 9.2 Immature Granulocytes % 0.600 H Neutrophils % 59.1 Lymphocytes % 23.4 Monocytes % 9.2 Eosinophils % 7.1 H Basophils % 0.6 Nucleated Red Blood Cells % 0.0 Immature Granulocytes # 0.050 H Neutrophils # 5.4 Lymphocytes # 2.1 Monocytes # 0.8 Eosinophils # 0.6 H Basophils # 0.1 Nucleated Red Blood Cells # 0.0 Sodium Level 146 H Potassium Level 4.5 Chloride Level 112 H Carbon Dioxide Level 23 Anion Gap 11 Blood Urea Nitrogen 42 H Creatinine 4.71 H Est Glomerular Filtrat Rate mL/min Glucose Level 99 Calcium Level 9.5 Medications Medication Current Medications Sodium Chloride (NS) -To prime the dialy... DIRECTED FOR HD PRN IV HD; Start 01/02/19 at 07:00 Acetaminophen (Tylenol Tab) 500 mg Q6 PRN PO MILD PAIN(1-3)OR ELEVATED TEMP Last administered on 01/04/19 22:22; Admin Dose 500 MG; Start 01/01/19 at 18:00 Atorvastatin Calcium (Lipitor) 10 mg QHS PO Last administered on 01/04/19 20:52; Admin Dose 10 MG; Start 01/01/19 at 21:00 Clopidogrel Bisulfate (plaVIX) 75 mg DAILY PO Last administered on 01/05/19 09:30; Admin Dose 75 MG; Start 01/02/19 at 09:00 Diphenhydramine HCl (Benadryl) 25 mg Q6H PRN PO ITCHING Last administered on 01/04/19 22:22; Admin Dose 25 MG; Start 01/01/19 at 18:00 Docusate Sodium (Colace) 100 mg BID PO Last administered on 01/05/19 09:30; Admin Dose 100 MG; Start 01/01/19 at 21:00 Gabapentin (Neurontin) 300 mg Q12 PO Last administered on 01/05/19 09:30; Admin Dose 300 MG; Start 01/01/19 at 21:00 Guaifenesin/ Dextromethorphan (Robitussin Dm Liquid Cup) 10 ml Q4H PRN PO COUGH; Start 01/01/19 at 18:00 Albuterol/ Ipratropium (Duoneb) 3 ml Q4H RESP THERAPY PRN INH SHORTNESS OF BREATH; Start 01/01/19 at 18:00 Levothyroxine Sodium (Synthroid) 150 mcg BEFORE BREAKFAST PO Last administered on 01/05/19 06:55; Admin Dose 150 MCG; Start 01/02/19 at 07:00 Metoprolol Tartrate (Lopressor) 25 mg BID PO Last administered on 01/05/19 09:31; Admin Dose 25 MG; Start 01/01/19 at 21:00 Multivit/Ca Carb/ B Cmplx/FA/Prenat (Sierra-Tarsha) 1 tab DAILY PO Last administered on 01/05/19 09:30; Admin Dose 1 TAB; Start 01/02/19 at 09:00 Nifedipine (Procardia Xl) 30 mg DAILY PO Last administered on 01/05/19 09:31; Admin Dose 30 MG; Start 01/02/19 at 09:00 Pantoprazole (Protonix Tab) 40 mg AC BREAKFAST PO Last administered on 01/05/19 06:55; Admin Dose 40 MG; Start 01/02/19 at 07:20 Polyethylene Glycol (Miralax) 17 gm DAILY PO Last administered on 01/05/19 09:30; Admin Dose 17 GM; Start 01/02/19 at 09:00 Epoetin Larry (Epogen (Esrd)) 3,000 units AFTER DIALYSIS SC Last administered on 01/02/19 16:45; Admin Dose 3,000 UNITS; Start 01/01/19 at 18:30 Heparin Sodium (Porcine) (Heparin (1000 Units/ml)) 3,700 unit AFTER DIALYSIS CATHETER Last administered on 01/02/19 13:28; Admin Dose 3,700 UNIT; Start 01/02/19 at 13:00 GI HARTMAN MD Jan 05, 2019 09:56
--- NOTE | 2019-01-05 10:19 | CONS ---
Consult Date/Type/Reason Admit Date/Time Jan 01, 2019 at 08:14 Initial Consult Date 01/01/19 Requesting Provider: LOREN ROSE MD Date/Time of Note DATE: 01/05/19 TIME: 10:18 Subjective NO acute events - BP in good range - no CP now - on HD - tolerating well. ROS: No fever, no chills, no nausea, no vomiting, no diarrhea/constipation No recent weight changes No chest pain, no PND, no orthopnea + fatigue, chronic SOB No dizziness, blurred vision No thirst, no heat or cold intolerance Objective Vitals Vital Signs Date Temp Pulse Resp B/P (MAP) Pulse Ox O2 O2 Flow FiO2 Time Delivery Rate 01/05/19 66 09:50 01/05/19 17 126/63 96 Room Air 09:08 (84) 01/05/19 97.2 07:54 01/04/19 21 17:22 Intake and Output 01/04/19 01/04/19 01/05/19 1515:00 23:00 07:00 IntakeIntake Total 900 ml BalanceBalance 900 ml Exam General: WN/WD/NAD, AOx 1-2 comfortable HEENT: Unicetric/atraumatic/EOMI (follows commands) NECK: JVD elevated, no thyromegaly Lymph: no lymphadenopathy HEART: regular with no S3, II/ systolic murmur at apex, PMI L LUNGS: Coarse sounds ABD: soft, NT, ND, +BS : Intact Neuro: non focal SKIN: chronic changes EXT: trace edema Results/Medications Result Diagram: 01/05/19 0434 01/05/19 0434 Results 24 hrs Laboratory Tests Test 01/05/19 04:34 White Blood Count 9.0 Red Blood Count 3.51 #L Hemoglobin 10.8 #L Hematocrit 33.7 #L Mean Corpuscular Volume 96.0 Mean Corpuscular Hemoglobin 30.8 Mean Corpuscular Hemoglobin Concent 32.0 Red Cell Distribution Width 15.4 H Platelet Count 175 # Mean Platelet Volume 9.2 Immature Granulocytes % 0.600 H Neutrophils % 59.1 Lymphocytes % 23.4 Monocytes % 9.2 Eosinophils % 7.1 H Basophils % 0.6 Nucleated Red Blood Cells % 0.0 Immature Granulocytes # 0.050 H Neutrophils # 5.4 Lymphocytes # 2.1 Monocytes # 0.8 Eosinophils # 0.6 H Basophils # 0.1 Nucleated Red Blood Cells # 0.0 Sodium Level 146 H Potassium Level 4.5 Chloride Level 112 H Carbon Dioxide Level 23 Anion Gap 11 Blood Urea Nitrogen 42 H Creatinine 4.71 H Est Glomerular Filtrat Rate mL/min Glucose Level 99 Calcium Level 9.5 Home Meds Reported Medications Acetaminophen* (Acetaminophen*) 500 MG Extra Strength Tablet, 500 MG PO Q6 PRN for PAIN AND OR ELEVATED TEMP, TAB 01/01/19 Levothyroxine Sodium* (Synthroid*) 150 Mcg Tablet, 150 MCG PO BEFORE BREAKFAST, #30 TAB 01/01/19 Multivit/Ca Carb/B Cmplx/Fa* (Sierra-Tarsha*) 1 Tab Tab, 1 TAB PO DAILY, TAB 01/01/19 Protein Supplement (Promod) 946 Ml Liquid, 30 ML PO BID FOR SUPPLEMEMT 01/01/19 Nifedipine* (Nifedipine ER*) 30 Mg Tablet.sa, 30 MG PO DAILY, TAB.SA FOR HTN HOLD IF SBP < 110, OR IF HR IS < 60 01/01/19 Polyethylene Glycol* (Miralax*) 17 Gm Powd.pack, 17 GM PO DAILY, #30 PACKET 01/01/19 Metoprolol Tartrate* (Lopressor*) 25 Mg Tablet, 25 MG PO BID, #60 TAB FOR HTN HOLD IF SBP IS <110 OR HR IS < 60 01/01/19 Ipratropium-Albuterol (Ipratropium-Albuterol) 0.5-3 Mg/3 Ml Ampul.neb, 3 ML INHALATION Q4 PRN for SHORTNESS OF BREATH, #30 VIAL 01/01/19 Epoetin Larry (Epogen) 3,000 Units/Ml Soln, 3000 UNITS SC, VIAL EVERY FRIDAY, FRIDAY AND Friday01/01/19 Docusate Sodium* (Docusate Sodium*) 100 Mg Capsule, 100 MG PO BID, #60 CAP 01/01/19 Diphenhydramine Hcl* (Benadryl*) 25 Mg Cap, 25 MG PO Q6H PRN for ITCHING, CAP 01/01/19 Clopidogrel Bisulfate* (Clopidogrel Bisulfate*) 75 Mg Tablet, 75 MG PO DAILY, #30 TAB 11/25/18 Pantoprazole* (Pantoprazole*) 40 Mg Tablet.dr, 40 MG PO AC BREAKFAST, TAB 11/25/18 Guaifenesin-Dextromethorphan* (Robitussin* DM) 100MG/10MG/5ML Syrup, 10 ML PO Q4H PRN for COUGH, ML 02/15/18 Gabapentin* (Gabapentin*) 300 Mg Capsule, 300 MG PO Q12, #60 CAP 02/15/18 Bisacodyl* (Bisacodyl*) 10 Mg Supp, 10 MG CO DAILY, SUPP FOR CONSTIPATION 02/15/18 Atorvastatin Calcium (Atorvastatin Calcium) 10 Mg Tablet, 10 MG PO QHS, #30 TAB 02/15/18 Discontinued Reported Medications Furosemide* (Furosemide*) 40 Mg Tablet, 40 MG PO BID, TAB HOLD FOR SBP<110 11/25/18 Mupirocin* (Bactroban*) 2% -22 Gram Oint...g., 1 APPLIC TOP BID, #1 TUB SITE OF APPLICATION: 11/25/18 Prednisone* (Prednisone*) 20 Mg Tab, 40 MG PO DAILY, TAB FOR 4 DAYS,START DATE 11/23/18, END DATE 11/27/18 11/25/18 Pramipexole* (Mirapex*) 0.5 Mg Tablet, 0.5 MG PO QHS, TAB 02/15/18 Hydralazine Hcl* (Hydralazine Hcl*) 25 Mg Tab, 25 MG PO Q6H PRN for FOR BP>160/95, #60 TAB 02/15/18 Tamsulosin Hcl* (Flomax*) 0.4 Mg Cap.er.24h, 0.4 MG PO DAILY, CAP 02/15/18 Ferrous Sulfate* (Ferrous Sulfate*) 325 Mg Tabec, 325 MG PO DAILY, TAB 02/15/18 Docusate Sodium* (Docusate Sodium*) 100 Mg Capsule, 100 MG PO BID, #60 CAP 02/15/18 Aspirin* (Aspirin* EC) 325 Mg Tab, 325 MG PO DAILY, TAB 02/15/18 Amiodarone Hcl* (Amiodarone Hcl*) 200 Mg Tablet, 200 MG PO DAILY, #30 TAB HOLD IF APICAL PULSE IS<60 02/15/18 Allopurinol* (Allopurinol*) 100 Mg Tablet, 200 MG PO DAILY, TAB 3/25/18 Acetaminophen* (Acetaminophen*) 325 Mg Tablet, 500 MG PO Q6 PRN for MILD PAIN LEVEL 1-3, #30 TAB AND FOR FEVER 02/15/18 Medications Current Medications Sodium Chloride (NS) -To prime the dialy... DIRECTED FOR HD PRN IV HD; Start 01/02/19 at 07:00 Acetaminophen (Tylenol Tab) 500 mg Q6 PRN PO MILD PAIN(1-3)OR ELEVATED TEMP Last administered on 01/04/19 22:22; Admin Dose 500 MG; Start 01/01/19 at 18:00 Atorvastatin Calcium (Lipitor) 10 mg QHS PO Last administered on 01/04/19 20:52; Admin Dose 10 MG; Start 01/01/19 at 21:00 Clopidogrel Bisulfate (plaVIX) 75 mg DAILY PO Last administered on 01/05/19 09:30; Admin Dose 75 MG; Start 01/02/19 at 09:00 Diphenhydramine HCl (Benadryl) 25 mg Q6H PRN PO ITCHING Last administered on 01/04/19 22:22; Admin Dose 25 MG; Start 01/01/19 at 18:00 Docusate Sodium (Colace) 100 mg BID PO Last administered on 01/05/19 09:30; Admin Dose 100 MG; Start 01/01/19 at 21:00 Gabapentin (Neurontin) 300 mg Q12 PO Last administered on 01/05/19 09:30; Admin Dose 300 MG; Start 01/01/19 at 21:00 Guaifenesin/ Dextromethorphan (Robitussin Dm Liquid Cup) 10 ml Q4H PRN PO COUGH; Start 01/01/19 at 18:00 Albuterol/ Ipratropium (Duoneb) 3 ml Q4H RESP THERAPY PRN INH SHORTNESS OF BREATH; Start 01/01/19 at 18:00 Levothyroxine Sodium (Synthroid) 150 mcg BEFORE BREAKFAST PO Last administered on 01/05/19 06:55; Admin Dose 150 MCG; Start 01/02/19 at 07:00 Metoprolol Tartrate (Lopressor) 25 mg BID PO Last administered on 01/05/19 09:31; Admin Dose 25 MG; Start 01/01/19 at 21:00 Multivit/Ca Carb/ B Cmplx/FA/Prenat (Sierra-Tarsha) 1 tab DAILY PO Last administered on 01/05/19 09:30; Admin Dose 1 TAB; Start 01/02/19 at 09:00 Nifedipine (Procardia Xl) 30 mg DAILY PO Last administered on 01/05/19 09:31; Admin Dose 30 MG; Start 01/02/19 at 09:00 Pantoprazole (Protonix Tab) 40 mg AC BREAKFAST PO Last administered on 12/25 06:55; Admin Dose 40 MG; Start 01/02/19 at 07:20 Polyethylene Glycol (Miralax) 17 gm DAILY PO Last administered on 01/05/19 09:30; Admin Dose 17 GM; Start 01/02/19 at 09:00 Epoetin Larry (Epogen (Esrd)) 3,000 units AFTER DIALYSIS SC Last administered on 01/02/19 16:45; Admin Dose 3,000 UNITS; Start 01/01/19 at 18:30 Heparin Sodium (Porcine) (Heparin (1000 Units/ml)) 3,700 unit AFTER DIALYSIS CATHETER Last administered on 01/02/19 13:28; Admin Dose 3,700 UNIT; Start 01/02/19 at 13:00 MICHELLE COLEMAN MD Jan 05, 2019 10:19
[2019-01-05] MEDS: HEPARIN 1000 UNITS/ML 10 ML INJ CATHETER SCH (11:18)
--- NOTE | 2019-01-05 11:30 | NUR ---
PATIENT COMFORTABLE, VITALS STABLE . DIET TOLERATED. HEMODIALYSIS STARTED AT 0805 AND COMPLETED AT 1105. RIGHT UPPER CHEST PERMA CATH DRESSING INTACT . NO BLEEDING NOTED . PATIENT TOLERATED WELL WITH DIET. PATIENT INCONTINENT. RIGHT AC IV SITE INTACT AND PATENT. ALL SAFETY PRECAUTIONS TO AVOID FALLS AND INJURIES MAINTAINED SUCH BED IN THE LOWEST POSITION, ALARMS ON, BRAKES ON, CALL LIGHT WITHIN REACH. WILL CONTINUE TO MONITOR.
--- NOTE | 2019-01-05 11:30 | NUR ---
DIALYSIS TOLERATED WELL. TOTAL 3 LITERS OF FLUID DRAINED WITH DIALYSIS. Addendum: 01/05/19 at 1449 by PRINCE GOMEZ RN PATIENT TOLERATED WELL WITH DIALYSIS. TOTAL 2 LITERS OF FLUID DRAINED AT THIS TIME.
--- NOTE | 2019-01-05 13:20 | NUR ---
SS NOTE: READMISSION SW REFERRED TO PT REGARDING READMISSION. PT IS 86 YR OLD FEMALE READMITTED FROM [facility] AFTER 16 DAYS FOR ANEMIA. PER MEDICAL RECORD, PT IS RESIDENT OD [facility] FOR 2+ YEARS. PT'S PRIMARY SURROGATE DECISION MAKER IS HER DAUGHTER EMMA ([phone]). PLAN IS FOR PT TO D/C BACK TO [facility] WHEN MEDICALLY CLEARED. SW REMAINS AVAILABLE FOR F/U NEEDED.
--- NOTE | 2019-01-05 14:30 | NUR ---
PATIENT SEEN BY ELIEZER BETANCUR AND RECEIVED DISCHARGE ORDERS WITH CBC , BMP IN 1 WEEK. DISCHARGE INFORMED TO WELL CONTROL INSTRUCTOR ANYI. WILL CONTINUE TO MONITOR.
--- NOTE | 2019-01-05 16:31 | NUR ---
CM NOTES: SPOKE TO THE DAUGHTER, EMMA [phone] AND SHE AGREED FOR PT RETURNING BACK TO [facility], [address] [facility] [place] [address] . ORDERED [facility] [phone] TO TRANSPORT THE PT, ETA FOR 5:30PM. WITH TRIP#[id number]. [facility] WAS INFORMED AND RECEIVED ALL UPDATE FAX FROM THIS CM. THIS CM SPOKE WITH [facility], ADMISSION DEPARTMENT AND CONFIRMED THE ACCEPTANCE. BEDSIDE NURSE WAS INFORMED ALL UPDATE. ANYI IBARRA LEAD CM [id number]
[2019-01-05] MEDS: EPOETIN 3000 UNITS/1 ML INJ (ESRD) SC SCH (17:14)
--- NOTE | 2019-01-05 17:30 | NUR ---
PATIENT DISCHARGED SAFELY AT THIS TIME VIA [facility] BY AMBULANCE TRANSPORTATION ORGANIZED BY [facility]IL [facility]. REPORT GIVEN TO EMT'S. REPORT GIVEN TO NARINDER PARRA IN [facility]. FAMILY AWARE OF TRANSFER. DISCHARGE RECONCILIATION GIVEN WITH PATIENT. RIGHT UPPER CHEST INTACT AND PATENT . DISCHARGED SAFELY.
--- NOTE | 2019-01-10 22:49 | DS ---
Date/Time of Note Date/Time of Note DATE: 01/10/19 TIME: 22:48 Discharge Summary Admission/Discharge Info Admit Date/Time Jan 01, 2019 at 08:14 Discharge Date/Time Jan 05, 2019 at 17:35 Patient Condition: Stable Hx of Present Illness The patient is a 88-year-old female with history of systolic and diastolic congestive heart failure, aortic stenosis, paroxysmal atrial fibrillation and atrial flutter, hypertension, hyperlipidemia hypothyroidism and history of chronic kidney disease that progressed to end-stage renal disease and patient is currently on hemodialysis, history of COPD, anemia, gout, and depression. Patient presented from care home facility for symptomatic anemia patient noticed to have hemoglobin of 6.5. Patient had a history of anemia of chronic disease and was on Epogen. During previous admission patient was evaluated for possible GI bleed, underwent EGD with notion of erosive gastritis and moderate duodenitis as well as hiatal hernia by Dr. Lewis. Patient was treated with PPI for gastritis and duodenitis, and and was treated with nystatin for Lissy esophagitis. Patient also underwent colonoscopy with polypectomy and notion of moderate diverticulosis. Prior to discharge patient hemoglobin was stable and patient was started on Plavix. During the examination patient is awake alert complains of generalized weakness and malaise denies any fever denies chills denies nausea and vomiting, denies chest pain denies shortness of breath. Hospital Course -Symptomatic anemia requiring blood transfusion. S/p blood transfusion. Continue to monitor hemoglobin and hematocrit, will obtain stool for OB. Dr. Funes is following patient in hematology consultation. Continue Epogen. -Hemodialysis dependent end-stage renal disease. Dr. Hill is following from nephrology standpoint. -Chronic systolic and diastolic congestive heart failure. Continue telemetry monitoring. Dr. Iraheta is asked to see patient in cardiology consultation. -Coronary artery disease, continue Plavix -Hypertension -Hyperlipidemia -Paroxysmal atrial fibrillation, patient is currently in sinus rhythm -S/p Left lower lobe pneumonia -Hypothyroidism, continue Synthroid. -DNR status Plan of care discussed with Dr. Olivier. Home Meds Reported Medications Acetaminophen* (Acetaminophen*) 500 MG Extra Strength Tablet, 500 MG PO Q6 PRN for PAIN AND OR ELEVATED TEMP, TAB 01/01/19 Levothyroxine Sodium* (Synthroid*) 150 Mcg Tablet, 150 MCG PO BEFORE BREAKFAST, #30 TAB 01/01/19 Multivit/Ca Carb/B Cmplx/Fa* (Sierra-Tarsha*) 1 Tab Tab, 1 TAB PO DAILY, TAB 01/01/19 Protein Supplement (Promod) 946 Ml Liquid, 30 ML PO BID FOR SUPPLEMEMT 01/01/19 Nifedipine* (Nifedipine ER*) 30 Mg Tablet.sa, 30 MG PO DAILY, TAB.SA FOR HTN HOLD IF SBP < 110, OR IF HR IS < 60 01/01/19 Polyethylene Glycol* (Miralax*) 17 Gm Powd.pack, 17 GM PO DAILY, #30 PACKET 01/01/19 Metoprolol Tartrate* (Lopressor*) 25 Mg Tablet, 25 MG PO BID, #60 TAB FOR HTN HOLD IF SBP IS <110 OR HR IS < 60 01/01/19 Ipratropium-Albuterol (Ipratropium-Albuterol) 0.5-3 Mg/3 Ml Ampul.neb, 3 ML INHALATION Q4 PRN for SHORTNESS OF BREATH, #30 VIAL 01/01/19 Epoetin Larry (Epogen) 3,000 Units/Ml Soln, 3000 UNITS SC, VIAL EVERY FRIDAY, FRIDAY AND Friday01/01/19 Docusate Sodium* (Docusate Sodium*) 100 Mg Capsule, 100 MG PO BID, #60 CAP 01/01/19 Diphenhydramine Hcl* (Benadryl*) 25 Mg Cap, 25 MG PO Q6H PRN for ITCHING, CAP 01/01/19 Clopidogrel Bisulfate* (Clopidogrel Bisulfate*) 75 Mg Tablet, 75 MG PO DAILY, #30 TAB 11/25/18 Pantoprazole* (Pantoprazole*) 40 Mg Tablet.dr, 40 MG PO AC BREAKFAST, TAB 11/25/18 Guaifenesin-Dextromethorphan* (Robitussin* DM) 100MG/10MG/5ML Syrup, 10 ML PO Q4H PRN for COUGH, ML 02/15/18 Gabapentin* (Gabapentin*) 300 Mg Capsule, 300 MG PO Q12, #60 CAP 02/15/18 Bisacodyl* (Bisacodyl*) 10 Mg Supp, 10 MG [place] DAILY, SUPP FOR CONSTIPATION 02/15/18 Atorvastatin Calcium (Atorvastatin Calcium) 10 Mg Tablet, 10 MG PO QHS, #30 TAB 02/15/18 Follow-up Plan d/c sniff with current orders, CBC BMP in 1 week. Primary Care Provider Jaylen Olivier MD Time spent on discharge: > 30 minutes EDWAR VARGAS Jan 10, 2019 22:49
== END 2019-01-05 17:35 | DRG 291 ==
LOC: E/R 08:09 → MS1 08:14
PROVIDERS: ADMIT Internal Medicine; ATTEND Internal Medicine
PROC: 30233N1 Transfusion of Nonautologous Red Blood Cells into Peripheral Vein, Percutaneous Approach (ICD-10-PCS; 2019-01-01)
PROC: 5A1D70Z Performance of Urinary Filtration, Intermittent, Less than 6 Hours Per Day (ICD-10-PCS; principal; 2019-01-02)
DX: I13.2 Hypertensive heart and chronic kidney disease with heart failure and with stage 5 chronic kidney disease, or end stage renal disease (principal); N18.6 End stage renal disease; I50.33 Acute on chronic diastolic (congestive) heart failure; D68.9 Coagulation defect, unspecified; D63.1 Anemia in chronic kidney disease; G62.9 Polyneuropathy, unspecified; G25.81 Restless legs syndrome; I25.10 Atherosclerotic heart disease of native coronary artery without angina pectoris; I48.0 Paroxysmal atrial fibrillation; E03.9 Hypothyroidism, unspecified; D69.6 Thrombocytopenia, unspecified; J44.9 Chronic obstructive pulmonary disease, unspecified; E78.00 Pure hypercholesterolemia, unspecified; Z66 Do not resuscitate; M10.9 Gout, unspecified; I08.0 Rheumatic disorders of both mitral and aortic valves; Z79.02 Long term (current) use of antithrombotics/antiplatelets; Z87.01 Personal history of pneumonia (recurrent); Z99.2 Dependence on renal dialysis; Z79.82 Long term (current) use of aspirin; Z90.49 Acquired absence of other specified parts of digestive tract
CPT/HCPCS: 36415; 36430; 71045; 80048; 80053; 81001; 82270; 82550; 82553; 83735; 84100; 84484; 85025; 85610; 85730; 86644; 86850; 86900; 86901; 86920; 87340; 90935; 93005; J0886; J1644; J7040; P9016